=== PATIENT | female | born 1955 | race Caucasian/White ===

== ENCOUNTER 2018-10-07 05:38 | Outpatient (CLI) | payer MEDICARE, OTHER, MEDICAID ==
[~2018-10-07] VITALS: Ht 170.2 cm; Wt 121.6 kg
[2018-10-07] MEDS ORDERED: VNL37.5T PO (14:56)
[2018-10-07] MEDS ORDERED: EXEN2AUT SQ (14:56)
[2018-10-07] MEDS ORDERED: POTA10TA10 PO (14:56)
[2018-10-07] MEDS ORDERED: LEVO75TA6 PO (14:56)
[2018-10-07] MEDS ORDERED: MULT-141 PO (14:56)
[2018-10-07] MEDS ORDERED: CLOP75TA28 PO (14:56)
[2018-10-07] MEDS ORDERED: CYCL10TA9 PO (14:56)
[2018-10-07] MEDS ORDERED: MECL12.579 PO (14:56)
[2018-10-07] MEDS ORDERED: FURO20TA4 PO (14:56)
[2018-10-07] MEDS ORDERED: LISI-556 PO (14:56)
[2018-10-07] MEDS ORDERED: INSU100I32 SQ (14:56)
[2018-10-07] MEDS ORDERED: DULO30CA48 PO (14:56)
[2018-10-07] MEDS ORDERED: QUET25TA73 PO (14:56)
[2018-10-07] MEDS ORDERED: DIVA250T2 PO (14:56)
[2018-10-07] MEDS ORDERED: PREG25CA PO (14:56)
[2018-10-07] MEDS ORDERED: VNL75T PO (14:56)
[2018-10-07] MEDS ORDERED: METF-397 PO (14:56)
[2018-10-07] MEDS ORDERED: MAGN400T50 PO (14:56)
[2018-10-07] MEDS ORDERED: NITR0.4T39 SL (14:56)
[2018-10-07] MEDS ORDERED: INSU100I14 SQ (14:56)
[2018-10-07] MEDS ORDERED: PANT40TA3 PO (14:56)
[2018-10-07] MEDS ORDERED: TRAZ-189 PO (14:56)
[2018-10-10] MEDS ORDERED: ALPR0.5T7 PO (08:39)
[2018-10-10] MEDS ORDERED: TRAZ-190 PO (08:39)
[2018-10-10] MEDS ORDERED: METO-333 PO (08:39)
[2018-10-10] MEDS ORDERED: ATOR80TA76 PO (08:39)
== END 2018-10-07 15:09 | disposition home or self-care (01) ==
LOC: PREOP 05:38
PROVIDERS: ATTEND Orthopaedic Surgery
DX: Z01.818 Encounter for other preprocedural examination (principal)

== ENCOUNTER 2018-10-10 10:04 | Inpatient (IN) | payer MEDICARE, MEDICAID ==
[~2018-10-10] VITALS: Ht 170.2 cm; Wt 123.4 kg
[2018-10-10] VITALS (7 sets, daily range): BP systolic 137–170; BP diastolic 65–82
[~2018-10-10 10:04] MED LIST: ALPR0.5T7 PO; ATOR80TA76 PO; CLOP75TA28 PO; CYCL10TA9 PO; DIVA250T2 PO; DULO30CA48 PO; EXEN2AUT SQ; FURO20TA4 PO; INSU100I14 SQ; INSU100I32 SQ; LEVO75TA6 PO; LISI-556 PO; MAGN400T50 PO; MECL12.579 PO; METF-397 PO; METO-333 PO; MULT-141 PO; NITR0.4T39 SL; PANT40TA3 PO; POTA10TA10 PO; PREG25CA PO; QUET25TA73 PO; TRAZ-189 PO; TRAZ-190 PO; VNL37.5T PO; VNL75T PO
--- OUTSIDE RECORDS SUMMARY | 2018-10-10 10:09 | XMS REPORT ---
Author Author [facility] Medical Staff Organization [facility] Address [address] [id number] Phone [phone] Summary purpose TRANSITION OF CARE AUTO GENERATION Chief Complaint and Reason for Visit No authorized Reason for Visit (Admitting Diagnosis) is available for this visit. Problem list No authorized problems tracked for continuity of care are available for this visit. Encounters No authorized problems tracked for encounter diagnoses are available for this visit. Medications No medications recorded for this patient visit Allergies, adverse reactions, alerts Allergen Category Ingredient Status Reaction Severity Onset No Known Drug Allergy No known drug allergies No known drug allergies Confirmed or Verified Immunizations Status Date Not Given Reason Product Series # Effectiveness / Reaction Folder Seamer Lot / Expiration Given 01-18-2015 PNEUMOCOCCAL 23-SHARON P-SAC VAC 1 MERCK,SHARP,[facility] [id number] / 12-20-2015 Relevant diagnostic tests and/or laboratory data RESULTS Radiology Results [id number]:19:00 Bilateral Screen Digital Mammo PACs Image DATE OF EXAM: 2016 [facility] 0845-BILAT SCREEN DIG MAMMO : RADIOLOGY REPORT DATE OF SERVICE: 03/09/16 HISTORY: Screening exam BILATERAL DIGITAL SCREENING MAMMOGRAM WITH iCAD SecondLook 7.2-H+ 1330 HOURS There are minimal residual fibroglandular densities. There are scattered benign coarse round calcifications in both breasts. There are no masses or grouped microcalculi. There is no distortion or significant asymmetry. IMPRESSION: Negative mammograms BI-RADS II. Dipesh Thorpe MD Lane/ga2016 15:20:00 / 2016 15:37:10 cc:Christiano Piña PA-C This document has been electronically Signed by: On: DATE OF EXAM: 2016 [facility] 0845-BILAT SCREEN DIG MAMMO : RADIOLOGY REPORT DATE OF SERVICE: 03/09/16 HISTORY: Screening exam BILATERAL DIGITAL SCREENING MAMMOGRAM WITH iCAD SecondLook 7.2-H+ 1330 HOURS There are minimal residual fibroglandular densities. There are scattered benign coarse round calcifications in both breasts. There are no masses or grouped microcalculi. There is no distortion or significant asymmetry. IMPRESSION: Negative mammograms BI-RADS II. Dipesh Thorpe MD MWLane/nh2016 15:20:00 / 2016 15:37:10 cc:Christiano Piña PA-C This document has been electronically Signed by: DIPESH THORPE MD On: Mar 09 20164:19P Result Amended on 2016 at 16:19:54. Previous status was [place]. History of procedures Procedure Code Code Type Description Date Performed Performing Physician 23491 CPT-4 MAMMOGRAM, SCREENING 2016 CHRISTIANO PIÑA 32917 CPT-4 COMP SCREEN MAMMOGRAM ADD-ON 2016 CHRISTIANO PIÑA Functional status No functional or cognitive status observations are available for this visit. Vital signs No authorized vital signs are available for this visit. Social history No Social History or smoking status observations were recorded for this visit. ( Unknown if ever smoked.) Treatment Plan No treatment plan text is available for this visit. Hospital discharge instructions No discharge instruction text is available for this visit.
--- OUTSIDE RECORDS SUMMARY | 2018-10-10 10:10 | XMS REPORT ---
Author Author [facility] Medical Staff Organization [facility] Address [address] [id number] Phone [phone] Care Team Providers Care General Intern Name Role Phone CHRISTIANO BOSWELL PP [phone] Summary purpose TRANSITION OF CARE AUTO GENERATION [...] Reason Product Series # Effectiveness / Reaction Account Contact Associate Lot / Expiration Given 01-18-2015 PNEUMOCOCCAL 23-SHARON P-SAC VAC 1 MERCK,SHARP,LYDIA [id number] / 12-20-2015 Relevant diagnostic tests and/or laboratory data No authorized results are available for this patient visit History of procedures No procedures recorded for this patient visit. Functional status No functional or cognitive status [...]
--- OUTSIDE RECORDS SUMMARY | 2018-10-10 10:10 | XMS REPORT ---
Author Author [facility] Medical Staff Organization [facility] Address [address] [id number] Phone [phone] Care Team Providers Care Patient Care Provider Name Role Phone CHRISTIANO BOSWELL PP [phone] Summary purpose TRANSITION OF CARE AUTO GENERATION [...] Reason Product Series # Effectiveness / Reaction Department Head Lot / Expiration Given 01-18-2015 PNEUMOCOCCAL 23-SHARON P-SAC VAC 1 MERCK,SHARP,LYDIA [id number] / 12-20-2015 Relevant diagnostic tests and/or laboratory data RESULTS Chemistry [id number]:53:00 Result Normal Range Units Sodium 138 134-145 mEq/l Potassium 4.1 3.5-5.1 mEq/l Chloride 104 98-107 mEq/l CO2 24.4 22-28 mEq/l Glucose H 173 70-105 mg/dl BUN 16 7-18 mg/dl Creatinine 0.83 0.6-1.0 mg/dl Triglycerides 112 35-160 mg/dl Cholesterol 151 120-200 mg/dl HDL Cholesterol L 38 39-96 mg/dl VLDL Cholesterol 22 5-40 mg/dl LDL Cholesterol 100 30-100 mg/dl Calcium 8.8 8.4-10.2 mg/dl TP - Total Protein 6.8 6.0-8.3 g/dl Albumin 4.0 3.5-5 g/dl Bilirubin - Total 0.5 0.1-1.0 mg/dl AST 14 10-42 IU/L ALT 28 12-65 IU/L ALP 68 25-72 IU/L Osmolality 281.0 280-300 mOsm/L Albumin/Globulin Ratio 1.4 0-8 Anion GAP 9.6 8-16 BUN/Creatinine Ratio 19.3 10-20 Estimated GFR 70 >=60 mL/min/1.7 Special Chemistry [id number]:00 Result Normal Range Units Hemoglobin A1C H 10.7 4.5-6.2 % History of procedures No procedures recorded for [...]
--- OUTSIDE RECORDS SUMMARY | 2018-10-10 10:10 | XMS REPORT ---
Author [facility] Medical Staff Organization [facility] Address [address] [id number] Phone [phone] Care Team Providers Care Head Bucker Name Role Phone CHRISTIANO BOSWELL PP [phone] Summary purpose TRANSITION OF CARE AUTO GENERATION [...] Reason Product Series # Effectiveness / Reaction Radiologic Technician Lot / Expiration Given 01-18-2015 PNEUMOCOCCAL 23-SHARON P-SAC VAC 1 MERCK,SHARP,LYDIA [id number] / 12-20-2015 Relevant diagnostic tests and/or laboratory data No authorized results are available for this patient visit History of procedures Procedure Code Code Type Description Date Performed Performing Physician 05651 CPT-4 PT EVALUATION 04-13-2016 NADIRA SCHAFER 54392 CPT-4 ULTRASOUND THERAPY 04-13-2016 NADIRA SCHAFER 63752 CPT-4 ULTRASOUND THERAPY 04-17-2016 NADIRA SCHAFER 12501 CPT-4 ULTRASOUND THERAPY 04-20-2016 NADIRA SCHAFER Functional status No functional or cognitive status [...]
--- OUTSIDE RECORDS SUMMARY | 2018-10-10 10:10 | XMS REPORT ---
Author Author [facility] Medical Staff Organization [facility] Address [address] [id number] Phone [phone] Care Team Providers Care Gift Shop Clerk Name Role Phone CHRISTIANO BOSWELL PP [phone] Summary purpose TRANSITION OF CARE AUTO GENERATION [...] Reason Product Series # Effectiveness / Reaction Pediatric Ophthalmologist Lot / Expiration Given 01-18-2015 PNEUMOCOCCAL 23-SHARON P-SAC VAC 1 MERCK,SHARP,LYDIA [id number] / 12-20-2015 Relevant diagnostic tests and/or laboratory data RESULTS Chemistry [id number]:53:00 Result Normal Range Units Sodium 138 134-145 [...] Estimated GFR 70 >=60 mL/min/1.7 Special Chemistry [id number]:53:00 Result Normal Range Units Hemoglobin A1C H 10.7 4.5-6.2 % History of procedures Procedure Code Code Type Description Date Performed Performing Physician 74866 CPT-4 COMPREHEN METABOLIC PANEL 04-21-2016 CHRISTIANO CROUCH 40950 CPT-4 LIPID PANEL 04-21-2016 CHRISTIANO CROUCH 07089 CPT-4 GLYCOSYLATED HEMOGLOBIN TEST 04-21-2016 CHRISTIANODUSTIN CROUCH Functional status No functional or cognitive status [...]
--- OUTSIDE RECORDS SUMMARY | 2018-10-10 10:10 | XMS REPORT ---
Author [facility] [employer] [facility] Medical Staff Organization [facility] Address [address] [place] [id number] Phone [phone] Care Team Providers Care Pier Master Assistant Name Role Phone MELISSA MEDEROS, SANDRA FONG [phone] SANDRA TORRES MD, PP [phone] Summary purpose TRANSITION OF CARE AUTO GENERATION Chief Complaint and Reason for Visit Admit Diagnosis 1 CHEST PAIN RULE OUT ME Problem list No authorized problems tracked for continuity of care are available for this visit. Encounters The following conditions tracked for encounter diagnoses were recorded for this visit: Finding or Diagnosis Status Certainty Chronicity Onset *CHEST PAIN Active Medications No medications recorded for this patient visit Allergies, adverse reactions, alerts Allergen Category Ingredient Status Reaction Severity Onset No Known Drug Allergy No known drug allergies No known drug allergies Confirmed or Verified Immunizations Status Date Not Given Reason Product Series # Effectiveness / Reaction Inspector Grain [employer] Products Lot / Expiration Given 01-18-2015 PNEUMOCOCCAL 23-SHARON P-SAC VAC 1 MERCK,SHARP,LYDIA [id number] / 12-20-2015 Relevant diagnostic tests and/or laboratory data RESULTS Chemistry [id number]:20:00 Result Normal Range Units Sodium 134 134-145 mEq/l Potassium 4.5 3.5-5.1 mEq/l Chloride 98 98-107 mEq/l CO2 24.8 22-28 mEq/l Glucose H 334 70-105 mg/dl BUN H 20 7-18 mg/dl Creatinine 0.98 0.6-1.0 mg/dl Calcium 9.1 8.4-10.2 mg/dl TP - Total Protein 7.2 6.0-8.3 g/dl Albumin 3.6 3.5-5 g/dl Bilirubin - Total 0.5 0.1-1.0 mg/dl AST 12 10-42 IU/L ALT 37 12-65 IU/L ALP H 75 25-72 IU/L Osmolality 283.9 280-300 mOsm/L Albumin/Globulin Ratio 1.0 0-8 Anion GAP 11.2 8-16 BUN/Creatinine Ratio H 20.4 10-20 BNP- Brain Natriuretic Peptide 75 0-900 pg/ml Estimated GFR L 58 >=60 mL/min/1.7 Hematology :20:00 Result Normal Range Units WBC 9.8 4.8-10.8 103/uL RBC 5.2 4.2-5.4 106/uL HGB 14.5 12.0-16.0 g/dl HCT 40.1 36.9-47.0 % MCV L 77.3 81-99 FL MCH 27.9 27-31 pg MCHC 36.2 33-37 g/dl RDW 13.6 11.5-15.5 % PLT 167 130-400 103/uL MPV H 11.3 7.3-10.4 FL Cardiac [id number]:27:00 Result Normal Range Units Troponin I < 0.04 0.0-0.4 ng/ml Patient samples may contain heterophilic antibodies that could react in immunoassays to give falsely elevated or depressed results. This Dimension assay has been designed to minimize interference from heterophilic antibodies. Nevertheless, complete elimination of this interference from all patient specimens cannot be guaranteed. A test result that is inconsistent with the clinical picture and patient history should be interpreted with caution. :20:00 Result Normal Range Units CK 59 26-192 IU/L CKMB 0.7 0-3.6 ng/ml Patient samples may contain heterophilic antibodies that could react with immunoassays to give falsely elevated or depressed results. This Dimension assay has been designed to minimize interference from heterophilic antibodies. Nevertheless, complete elimination of this interference from all patient specimens cannot be guaranteed. A test result that is inconsistent with the clinical picture and patient history should be interpreted with caution. Troponin I < 0.04 0.0-0.4 ng/ml Patient samples may contain heterophilic antibodies that could react in immunoassays to give falsely elevated or depressed results. This Dimension assay has been designed to minimize interference from heterophilic antibodies. Nevertheless, complete elimination of this interference from all patient specimens cannot be guaranteed. A test result that is inconsistent with the clinical picture and patient history should be interpreted with caution. Radiology Results [id number]:00 Chest XRay - Port - 1 View PACs Image DATE OF EXAM: Feb 20 2015 RAD 0292-CHEST 1 VIEW PORT : RADIOLOGY REPORT DATE OF SERVICE: 02/20/15 HISTORY: Patient has chest pain, nausea. PORTABLE ONE VIEW CHEST 0648 HOURS The patient has undergone coronary artery bypass surgery. The heart and mediastinum are normal. The lungs are clear. No effusion is seen. IMPRESSION: Negative study of the chest unchanged from 02/06/2015. Vanessa Ignacio DO /mi 02/20/2015 11:29:00 / 02/20/2015 11:31:45 cc:Dr. Sandra Torres This document has been electronically Signed by: On: DATE OF EXAM: Feb 20 2015 RAD 0292-CHEST 1 VIEW PORT : RADIOLOGY REPORT DATE OF SERVICE: 02/20/15 HISTORY: Patient has chest pain, nausea. PORTABLE ONE VIEW CHEST 0648 HOURS The patient has undergone coronary artery bypass surgery. The heart and mediastinum are normal. The lungs are clear. No effusion is seen. IMPRESSION: Negative study of the chest unchanged from 02/06/2015. Vanessa Ignacio DO /mi 02/20/2015 11:29:00 / 02/20/2015 11:31:45 cc:Dr. Sandra Torres This document has been electronically Signed by: VANESSA IGNACIO DO On: Feb 20 20151:46P Result Amended on 2015-02-20 at 13:46:52. Previous status was [place]. CHEST PAIN RULE OUT ME [id number]:20:00 Result Normal Range Units MPV H 11.3 7.3-10.4 FL History of procedures No procedures recorded for this patient visit. Functional status Functional Status Finding Observation Time Hearing Prob Loc none [id number]:00 Vision Problems yes [id number]:00 Vision Correct Dev glasses [id number]:00 Ambulation Asst Dev none [id number]:00 Range of Motion full :18 Muscle Strength RUE 5 ROM full resist :18 Muscle Strength RLE 5 ROM full resist :18 Muscle Strength LUE 5 ROM full resist :18 Muscle Strength LLE 5 ROM full resist [id number]:18 Transfers independent :18 Ambulation in room :18 Balance steady :18 Bathing Assistance none :00 Eating Assistance none :00 Dressing Assistance none :00 Toileting Assistance none :00 Transfer Assistance none :00 Decline Slf Care/Mob no :00 Phys Cond Stable yes :00 Nutrition normal :18 Diet ADA specify calorie Comment: 1800 :18 Oral Cavity moist :18 Teeth missing (specify) Comment: several :18 Dental Hygiene good :18 Abdomen Appearance obese :18 Abdomen soft :18 Bowel Sounds present :18 NG Tube no :18 Feeding Tube none :18 Pinto no :18 Ostomy no :18 Stool normal Comment: per pt report :18 Urination normal Comment: per pt report :18 Quality sym/unlabored :18 Cough absent :18 Secretions no :18 Breath Sounds RUL clear :18 Breath Sounds RML clear :18 Breath Sounds RLL clear :18 Breath Sounds LARISA clear :18 Breath Sounds LLL clear :18 Airway natural :18 Chest Tube no :18 Oxygen no [id number]:14 C-PAP no :18 BI-PAP no :18 Temp >100.4 no :18 Temp <96.8 no :18 Chills with rigors no :18 HR > 90bpm no :18 Respirations > 20 no :18 Systolic <90 no [id number]:18 headache stiff neck no :18 WBC > 51378 no :18 WBC < 4000 no :18 Rapid Resp no :18 IV Site Location Left inner FA :35 IV Type peripheral :35 IV Site Information new : IV Site Start Attmpt 2 times :35 IV Site Michael 20 :35 IV Site Appearance WNL :35 IV Site Color clear :35 IV Site Patent yes :35 Dressing Changed yes :35 Dressing Type occlusive :35 Nursing Note Report called to Janice at [facility] at 2009. 201420:14 Cognitive Status Finding Observation Time Oriented To Date 5 Yes : Oriented To Place 5 Yes :00 Name 3 Objects 3 Yes :00 Name Object in Rm 2 Yes :00 Recall 3 Objects 3 Yes :00 Repeats a Phrase 1 Yes :00 Follows Verbal Direc 3 Yes :00 Follows Written Dire 1 Yes :00 Write a Sentance 1 Yes :00 Draw an Object 1 Yes :00 Mini Mental Total 25 points :00 Less than 20 Phys not applicable :00 Learning Ability comprehends well : Neurological no :03 Psychological no :03 Physical no :03 Hearing no :03 Senior Financial Needed no :03 Sign Language no :03 Emotional yes :03 Vision yes :03 Laguage no :03 Financial no :03 Vital signs Type Value Date Respiration Rate 18breaths per minute 06-72-275013:14 Pulse 91beats per minute :14 Oxygen Saturation 93% :14 BP Systolic 170mmHg :14 BP Diastolic 69mmHg :14 Temperature 98.3F 86-87-131019:14 Height 67inches 94-94-817454:00 Weight 256LB 48-10-214462:00 Social history Type Value Smoking Status FORMER SMOKER Treatment Plan No treatment plan text is available for this visit. Hospital discharge instructions Discharge Date/Time 02/20/2015 09:50 Accompanied By nurse Dismissal Condition fair Disposition on DC transfered Comment: OBS 8 via w/c Valuables yes Valuable Type billfold/jamila Valuableharriet Returned T patient DC Inst/Educ Give yes Med/Side Effects Rev yes PNE Vac 01/18/2015 Flu Vac 10/06/2014 Tetanus Vac unknown
--- OUTSIDE RECORDS SUMMARY | 2018-10-10 10:10 | XMS REPORT ---
Author Author [facility] Medical Staff Organization [facility] Address [address] [id number] Phone [phone] Care Team Providers Care Billiard Table Assembler Name Role Phone MELISSA MEDEROS, SANDRA PP [phone] SANDRA TORRES MD, PP [phone] Summary purpose TRANSITION OF CARE AUTO GENERATION Chief Complaint and Reason for Visit Admit Diagnosis 1 CHEST PAIN RULE OUT CO Problem list No authorized problems tracked for [...] Reason Product Series # Effectiveness / Reaction Manager Pipeline Lot / Expiration Given 01-18-2015 PNEUMOCOCCAL 23-SHARON P-SAC VAC 1 MERCK,SHARP,LYDIA [id number] / 12-20-2015 Relevant diagnostic tests and/or laboratory data RESULTS [id number]:46:00 Discharge Summary DISCHARGE SUMMARY The patient does continue to have chest pain. Nitroglycerin was given. I spoke with Dr. White from [facility] and he has agreed to accept the patient in transfer to [place].She will be transferred via ambulance. Will start her on a nitroglycerin patch and give her a dose of metoprolol and start her on Lovenox as well this evening. Em Piña PA-C for Sandra Torres MD SB/jmeka 02/20/2015 18:46:00/02/21/2015 08:49:18 Clinic Code:24798 [facility]: [facility] [address] [place] [address] <END HEADER> Chemistry [id number]:20:00 Result Normal Range Units Sodium 134 134-145 [...] 103/uL MPV H 11.3 7.3-10.4 FL Cardiac [id number]:27:00 Result Normal Range Units Troponin I < [...] should be interpreted with caution. Radiology Results [id number]:47:00 MYOCARDIAL SPECT MULT PACs Image DATE OF EXAM: Feb 20 2015 [id number] SPECT MULTIPLE : RADIOLOGY REPORT DATE OF SERVICE: 02/20/15 HISTORY: Chest pain, coronary artery disease, x4 bypass 2011, insulin dependent diabetes mellitus, hypertension, obese PHARMACOLOGICAL STRESS AND RESTING MYOCARDIAL PERFUSION STUDY (LEXISCAN CARDIOLITE STUDY) 1015 HOURS The patient initially is given 10.1 mCi of technetium 99m labeled Cardiolite intravenously. After a 55 minute delay, resting SPECT perfusion images are obtained. The patient is then given the pharmacological stress agent by the referring clinician. At maximal stress, the patient is given 30.2 mCi of technetium 99m labeled Cardiolite intravenously. After a 62 minute delay, gated stress SPECT perfusion images are obtained. The stress SPECT perfusion images reveal a perfusion defect along the anterior wall of the left ventricle. This is, however, present on the resting images, but is worse on the stress images. There is also a small perfusion defect in the inferior wall of the left ventricle which is essentially the same as on the stress and resting images. On the end-systolic stress SPECT perfusion images, the perfusion defect in the anterior wall is still worse on the stress and on the resting images, so this represents a small area of reversible ischemia, probably an area of previous infarction.The inferior wall perfusion defect is also still present on the gated end systolic images. On the gated study, the left ventricular ejection fraction is calculated at 52% which is normal. The end-systolic volume is 29 cc with the end-diastolic volume being 102 cc.There is normal segmental left ventricular cardiac wall motion and thickening, including the anterior wall. IMPRESSION: 1)There is a small fixed perfusion defect in the inferior wall of the left ventricle either due to a technical artifact due to the patient's body habitus or a small area of previous infarction. 2)There is a perfusion defect along the anterior wall of the left ventricle which is worse on the stress than on the resting images. This, therefore, appears to represent an area of reversible ischemia possibly an area of previous infarction. 3)The left ventricular ejection fraction is calculated at 52% which is normal. There is normal segmental left ventricular cardiac wall motion and thickening present. 4)The report is relayed telephonically to the Emergency Department at approximately 16:45 hours on . MD ALBERTO Mcelroy/jeff02/20/2015 16:41:02/20/2015 18:44:18 cc:Dr. Mary Torres This document has been electronically Signed by: On: CHEST PAIN RULE OUT CO [id number]:46:00 Chest XRay - Port - 1 View [...] study of the chest unchanged from 02/06/2015. DO JAROD Quiroga/lisha 02/20/2015 11:29:02/20/2015 11:31:45 cc:Dr. Sandra Torres This document has [...] study of the chest unchanged from 02/06/2015. DO JAROD Quiroga/lisha 02/20/2015 11:29:00 / 02/20/2015 11:31:45 cc:Dr. Sandra Torres This document has been electronically Signed by: VANESSA IGNACIO DO On: Feb 20 20151:46P Result Amended on 2015-02-20 at 13:46:52. Previous status was [place]. CHEST PAIN RULE OUT CO :20:00 Result Normal Range Units MPV H 11.3 7.3-10.4 FL History of procedures No procedures recorded for this patient visit. Functional status Functional Status Finding Observation Time Hearing Prob Loc none :00 Vision Problems yes : Vision Correct Dev glasses :00 Ambulation Asst Dev none : Range of Motion full : Muscle Strength RUE 5 ROM full resist : Muscle Strength RLE 5 ROM full resist : Muscle Strength LUE 5 ROM full resist :18 Muscle Strength LLE 5 ROM full resist :18 Transfers independent : Ambulation in room : Balance steady : Bathing Assistance none :00 Eating Assistance none [...] :18 Chest Tube no :18 Oxygen no [id number]:14 C-PAP no [id number]:18 BI-PAP no :18 Temp >100.4 no :18 Temp <96.8 no :18 Chills with rigors no : HR > 90bpm no :18 Respirations > 20 no :18 Systolic <90 no :18 headache stiff neck no :18 WBC > 42662 no :18 WBC < 4000 no :18 Rapid Resp no :18 IV Site Location Left inner FA :35 IV Type peripheral :35 IV Site Information new :35 IV Site Start Attmpt 2 times :35 IV Site Michael 20 :35 IV Site Appearance WNL :35 IV Site Color clear :35 IV Site Patent yes :35 Dressing Changed yes :35 Dressing Type occlusive :35 Nursing Note Patient was admitted from [facility] observation for Chest pain/R/O CO. Patient continued to have chest pain so she was sent to [place] where she underwent a heart cath and had two stents placed. She is coming home today. She thanked me for insisting that day she go to the ER. :01 Cognitive Status Finding Observation Time Oriented To Date 5 Yes :[address] 5 Yes :00 Name 3 Objects 3 Yes :00 Name Object in Rm 2 Yes :00 Recall 3 Objects 3 Yes : Repeats a Phrase 1 Yes :00 Follows Verbal Direc 3 Yes : Follows Written Dire 1 Yes : Write a Sentance 1 Yes : Draw an Object 1 Yes : Mini Mental Total 25 points : Less than 20 Phys not applicable :00 Learning Ability comprehends well : Neurological no :03 Psychological no :03 Physical no :03 Hearing no :03 Vehicle Check In Clerk Needed no :03 Sign Language no :03 Emotional yes :03 Vision yes :03 Laguage no :03 Financial no :03 Vital signs Type Value Date Respiration Rate 18breaths per minute 09-44-205684:14 Pulse 91beats per minute :14 Oxygen Saturation 93% :14 BP Systolic 170mmHg 16-25-970244:14 BP Diastolic 69mmHg :14 Temperature 98.3F 83-79-813816:14 Height 67inches 99-94-063039:00 Weight 256LB 71-54-996734:00 Social history Type Value Smoking Status FORMER SMOKER Treatment Plan No treatment plan text is available for this visit. Hospital discharge instructions Discharge Date/Time 02/20/2015 09:50 Accompanied By nurse Dismissal Condition fair Disposition on DC transfered Comment: OBS 8 via w/c Valuables yes Valuable Type billfold/purse Valuables Returned T patient DC Inst/Educ Give yes Med/Side Effects Rev yes PNE Vac 01/18/2015 Flu Vac 10/06/2014 Tetanus Vac unknown
--- OUTSIDE RECORDS SUMMARY | 2018-10-10 10:11 | XMS REPORT ---
Author Author [facility] Medical Staff Organization [facility] Address [address] [phone] Phone [phone] Care Team Providers Care Custom Shoemaker Name Role Phone MELISSA MEDEROS, SANDRA FONG [phone] Summary purpose TRANSITION OF CARE AUTO GENERATION [...] Reason Product Series # Effectiveness / Reaction Psychology Associate Lot / Expiration Given 01-18-2015 PNEUMOCOCCAL 23-SHARON P-SAC VAC 1 MERCK,SHARP,LYDIA [id number] / 12-20-2015 Relevant diagnostic tests and/or laboratory [...]
--- OUTSIDE RECORDS SUMMARY | 2018-10-10 10:11 | XMS REPORT ---
Author Author [facility] Medical Staff Organization [facility] Address [address] [id number] Phone [phone] Care Team Providers Care Contracting Manager Name Role Phone MELISSA MEDEROS, SANDRA FONG [phone] SANDRA BRUNNER MD, PP [phone] Summary purpose TRANSITION OF CARE AUTO GENERATION Chief Complaint and Reason for Visit Admit Diagnosis 1 PN Problem list No authorized problems tracked for continuity of care are available for this visit. Encounters The following conditions tracked for encounter diagnoses were recorded for this visit: Finding or Diagnosis Status Certainty Chronicity Onset *PNEUMONIA Active Medications Discharge Medications Status Medication Directions Current Acetaminophen (TYLENOL) 325 mg: TABLET 650 MG oral Give PO Q4 Hours As Needed for PAIN/FEVER Current Albuterol Sulfate (ALBUTEROL) 2.5 mg /3 mL (0.083 %): VIAL-NEB. 2.5 MG inhalation Give NEB Q4 Hours As Needed for DIFFICULTY BREATHING Current alprazolam 0.25 mg tablet 0.25 milligram (s) oral oral 3 xDaily As Needed for anxiety Current Benzonatate (TESSALON PERLES) 100 mg: CAPSULE 1-2 CAP oral Give PO Q6 Hours As Needed for COUGH Current Celexa 40 mg tablet 20 milligram (s) oral Daily Current Cymbalta 30 mg capsule,delayed release 60 milligram (s) oral Daily Current Levemir Flexpen 100 unit/mL (3 mL) solution subcutaneous insulin pen 35 unit(s) subcutaneous Bedtime daily Current Lipitor 40 mg tablet 40 milligram (s) oral Bedtime daily Current lisinopril 5 mg tablet 5 milligram (s) oral Daily Current Lyrica 50 mg capsule 100 milligram (s) oral 3 xDaily 07-08-21 Current Nitrostat 0.4 mg sublingual tablet 0.4 milligram (s) Sublingual SL As Needed for chest pain Current Novolog Flexpen 100 unit/mL subcutaneous 35 unit(s) subcutaneous 3 xDaily with Meals [id number] Current oxycodone 10 mg tablet 1-2 oral oral Q6 Hours As Needed for pain Home prescription Current Plavix 75 mg tablet 75 milligram (s) oral Daily Current Protonix 40 mg tablet,delayed release 40 milligram (s) oral Daily Current trazodone 100 mg tablet 200 milligram (s) oral Bedtime daily Allergies, adverse reactions, alerts Allergen Category Ingredient Status Reaction Severity Onset No Known Drug Allergy No known drug allergies No known drug allergies Confirmed or Verified Immunizations Status Date Not Given Reason Product Series # Effectiveness / Reaction 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 Chest x-ray performed in the clinic was felt to show a right lower lobe infiltrate. She had been having some diarrhea at home. She had been having fever and chills since the onset and temperature up to 101.9 was found at home. She denied nausea and vomiting. She was admitted for further evaluation. PHYSICAL EXAMINATION:VITAL SIGNS: Temperature 97.4 tympanic. Pulse 68. Blood pressure 134/63. Respirations 18. Oxygen saturation 94% on room air. HEENT: Clear. LUNGS: Clear. No cough noted today.HEART: Normal sinus rhythm. ABDOMEN: Soft and nontender. EXTREMITIES: Without edema. LABORATORY/X-RAY/EKG DATA: Complete blood count on 10/28/2015 showed a white blood cell count of 6700, hemoglobin 13.5, hematocrit 40.8, platelets 168. Chemistry on 10/29/2015 showed sodium of 136, potassium 4.6, chloride 102, CO2 28.8, glucose 215, blood urea nitrogen 22, and creatinine 0.90. Anion gap 5.2. Glomerular filtration rate of 64. HOSPITAL COURSE:Following admission, the patient was placed in the hospital on pneumonia protocol. Levaquin was administered intravenously daily over 7 days. Chest x-ray was completed on 10/28/2015, which was read as clear by the radiologist. The patient was seen on October [address] Cole for a parenchyma of the left great toe with callous, which was incised and drained and callous removed by Dr. Cole with instructions on dressing. The patient was noted to have renal insufficiency on October 28 with a blood urea nitrogen of 25 and creatinine of 1.02 and glomerular filtration rate of 56; improved on October 29 with a blood urea nitrogen of 22 and creatinine of 0.90 and glomerular filtration rate of 64. FOLLOW UP:The patient will follow up with Dr. Brunner in the clinic in 7 days. HOME MEDICATIONS:Will include acetaminophen 325 mg tablets, number of 2 given orally every4 hours as needed, albuterol 2.5 mg in 3 mL solution per vial inhalation given nebulized every 4 hours as needed, alprazolam 0.25 mg tablet oral 3 times daily as needed, Tessalon Perles 100 mg capsules oral 1 to 2 caps every 6 hours as needed, Celexa 40 mg tablets 1/2 tablet daily, Cymbalta 30 mg capsules oral 2 capsules daily, Levemir 35 units subcutaneous at bedtime, Lipitor 40 mg oral tablet at bedtime, lisinopril 5 mg oral tablet daily, Lyrica 50 mg capsule 2 capsules 3 times daily, Nitrostat 0.4 mg sublingual tablets as needed for chest pain, NovoLog 35 units 3 times daily with meals subcutaneous, oxycodone 10 mg tablets 1 to 2 every 6 hours as needed, Plavix 75 mg tablet oral daily, Protonix 40 mg tablet oral daily, trazodone 100 mg tablet oral 2 tablets at bedtime. ASSESSMENT: 1. Acute bronchitis. 2. Parenchyma of the left great toe. 3. Type 2 diabetes. 4. Renal insufficiency. Sanjeev David APRN for MD DEVORAH Aldana/cdj10/30/2015 13:55:00/10/30/2015 14:25:01 Clinic Code: [facility] [address] [address] <END HEADER> [id number]:30:00 Progress Note PROGRESS NOTE 10/29/2015 17:30:34 S:The patient is getting along well today. Her bowels moved last night after magnesium citrate. Some loose stool with large amount of formed stool. She had parenchyma of the left great toe drained over the weekend. She is having minor discomfort from that. No nausea or vomiting. Still has some cough but that seems to be improving. The patient is worried that her oxygen saturation dropped during the night yesterday. O: VITAL SIGNS: Temperature 98.2 tympanic, pulse 80, blood pressure 125/51, respirations 18, and oxygen saturation 92% on room air. GENERAL: The patient is sitting up in the chair. She is very pleasant. LUNGS: Clear, wheezy cough is noted. HEART: Normal sinus rhythm. ABDOMEN: Soft. No tenderness. EXTREMITIES: Without edema. LABORATORY/X-RAY/ELECTROCARDIOGRAM DATA: Chemistries show sodium of 136, potassium 4.6, CO2 28.8, glucose 215, blood urea nitrogen 22, creatinine 0.90, anion gap 5.2, glomerular filtration rate 64. A: 1.Acute bronchitis. 2.Parenchyma of left great toe. 3.Type 2 diabetes. 4.Renal insufficiency. P: 1. Warm Thurston soaks to the left foot 2 times daily followed by Polysporin dressing to the great toe. 2.Plan to dismiss in the morning. 3.Continue respiratory therapy treatments. MELINDA Bruce/michael10/29/2015 17:30:34/10/29/2015 18:16:43 [facility]: [facility] [address] [place] [address]<END HEADER> [id number]:52:00 Progress Note PROGRESS NOTE 10/28/2015 13:52:56 S: Patient is getting along really fairly well. Bowels have not moved for a little over a week. She has been on MiraLax without any improvement. She has had paronychia left great toe drained over the weekend. She is not having much discomfort from that. No nausea or vomiting. Still has some cough, but that seems to be improving. O: VITAL SIGNS: She is afebrile. Temperature 97.7, pulse 86, blood pressure 154/56, respirations 20, and oxygen saturation is 93% on room air. LUNGS: Clear, occasional wheezy cough is noted. HEART: Normal sinus rhythm. ABDOMEN: Soft, diffuse nonlocalized tenderness. EXTREMITIES: Without edema. Intake and output show she was pretty much equal for intake and output yesterday. LABORATORY: This morning showing a white count of 6700, hemoglobin of 13.5. Electrolytes are normal, BUN is up slightly at 25 and creatinine is up to 1.02, estimated GFR of 56. Chest x-ray today showing no pneumonia. A: 1. Acute bronchitis. 2. Paronychia of the left great toe. 3. Type II diabetes. 4. Renal insufficiency. 5. Constipation. P: 1. We have completed a week of Levaquin. In light of her renal insufficiency, I am going to discontinue Levaquin. 2. Magnesium citrate today. 3. Warm Thurston soaks to the left foot 2 times daily followed by Polysporin dressing to the great toe. 4. If she continues to do well, will look at discharge tomorrow. 5. BMP in the morning. Sandra Brunner MD GUEST RELATION OFFICER/lisha 10/28/2015 13:52:56/10/28/2015 13:56:46 Clinic Code: [facility] [address] [place] [address]<END HEADER> [id number]:50:00 Progress Note PROGRESS NOTE 10/27/2015 11:50:33 S: The patient is getting along okay today but complain that she had a lot of tightness in her lungs after her morning breathing treatment, which is unusual. She feels better now. She complains of also feeling tired and weak and still having a loose cough but it has not been productive over the last 24 hours or so. She feels more congested today both the lungs and sinuses than she has. She has not had a bowel movement, but states she feels as though things are moving around and that she may have one today. Yesterday, Dr. Cole was able to see her and he was able to perform a partial avulsion of the medial hallux and the nail border on the left with incision and drainage of parenchyma and removal of necrotic tissue callus and debris. Triple antibiotic and gauze was applied yesterday.I have not yet looked at the wound today. I am planning to go back in with the nurse here soon and we will do a dressing change. She has an appointment to follow up with Dr. Cole this week. O: VITAL SIGNS: Temperature is 98.3, pulse of 82, blood pressure 108/48, respirations 20, and oxygen saturation is 94% on 0.5 liters. HEART: Regular rate and rhythm. LUNGS: Clear. She does have a loose cough. ABDOMEN: Nontender. EXTREMITIES: She has a dressing then on the left great toe. A: 1. Acute bronchitis persisting, currently on Levaquin. 2.Left great toe parenchyma infection and ingrown nail border. 3.Type 2 diabetes. P: 1. Per Dr. Brunner, today will be day 7 of intravenous Levaquin. We will continue that. 2.We will repeat chest x-ray tomorrow to see if there is any interval development of pneumonia. 3.Continue with albuterol 3 times daily and add albuterol in between if needed. 4.Encourage ambulation. 5.We will redress the wound today of the left great toe as well. ART Arrieta/michael10/27/2015 11:50:33/10/27/2015 15:19:14 Clinic Code: [id number] [facility]: [facility] [address] [place] [address]<END HEADER> [id number]:41:00 Progress Note PROGRESS NOTE 10/26/2015 09:41:25 S: The patient is getting along okay today. She does complain though that she has still not had a bowel movement. She was given Dulcolax tablets, yesterday but has not produced a bowel movement. She has already taken MiraLAX today. She states she still has a very little appetite, but has not had a bowel movement in about a week. She also complained that she is noticing some pain in her big toe yesterday. She states she is still short of breath when she is up and walking around and she also has quite a bit of sputum production. She feels it is easier to express her sputum production since she has started Mucinex. The patient has been having some headaches, but complains more of a neck discomfort that leads to the headaches. O: VITAL SIGNS:Her temperature is 98.1, pulse 85, blood pressure 91/83, respirations 20, and oxygen saturation is 94% on room air. GENERAL:The patient is a pleasant, adult female in no otherwise acute distress. HEART:Regular rate and rhythm. LUNGS:Clear. Deep breath does invoke a cough. ABDOMEN:Mildly distended, but bowel sounds are present. The abdomen is otherwise nontender. EXTREMITIES:Examination of her lower extremities, she does have an ulceration and callus formation in the distal aspect of the left great toe medially, just at the tip of where the nail is. It appears she may have cut the nail short at some point causing abrasion to the foot there. This is a bit tender and there is mild erythema surrounding this callus. LABORATORY DATA:There is no new lab to report today. Diabetic flow sheet was reviewed A: 1.Acute bronchitis. 2.Left great toe ulceration. 3.Type 2 diabetes with peripheral neuropathy. 4.Hypoxemia, improving. 5.Constipation. 6.Diminished appetite. 7.Headaches. P: K-pad as needed to her neck to see if this will help some with her headache. I am going to continue with IV Levaquin, continue with nebulized treatments and physical therapy.I am going to consult Dr. Cole due to the patient's foot ulcer. I am going to administer Dulcolax oral again this morning. If no bowel movement, we will administer Dulcolax suppository today. I am also going to leave an order for him milk of magnesia as needed as well. ART Arrieta/mason 10/26/2015 09:41:25/10/26/2015 10:29:27 Clinic Code: [id number] cc: [facility] [address] [place] [address]<END HEADER> [id number]:37:00 Progress Note PROGRESS NOTE 10/25/2015 09:37:55 S: Patient states she is feeling poorly today. She is tired and worn out. She did ambulate with physical therapy yesterday, but states she was short of breath when she was not very fat out of her room and she had to sit down and rest. She is also complaining that she has not had a bowel movement in about a week. She had to wear oxygen yesterday afternoon due to low oxygen saturations and then again this morning. Her saturations were found to be in the upper 80s she was placed on 2 liters. She is still coughing but complains that her sputum remains very thick and green. The patient continues to complain of poor appetite. Her intake and output are reviewed and she did diurese yesterday 1000 in excess of intake. O: VITAL SIGNS:Her temperature is 98.8, pulse 86, blood pressure 135/62, respirations 18 and oxygen saturation 93% on 1 liter of oxygen. GENERAL:The patient is a pleasant, adult female who did not appear to be in any acute distress at this time. HEART:Regular rate and rhythm. LUNGS:Diminished. There is a faint expiratory wheeze heard in the extreme left base. ABDOMEN:Nontender. Bowel sounds are present. EXTREMITIES:Without any edema. A: 1.Acute bronchitis. 2.Hypoxemia. 3.Type 2 diabetes. 4.Diminished appetite. 5.Constipation. P: I am going to administer Dulcolax tablets; she states this is something she takes at home for constipation. She will take 2 orally now. I am also starting MiraLAX daily today. I am adding Mucinex to help thin her secretions, and PORFIRIO chavez for VTE prophylaxis.We will continue with physical therapy and IV Levaquin. ART Arrieta/mason 10/25/2015 09:37:55/10/25/2015 13:30:25 Clinic Code: [id number] cc: [facility] [address] [place] [address]<END HEADER> [id number]:07:00 Progress Note PROGRESS NOTE 10/24/2015 15:07:55 S: Jacek still having cough productive of green sputum. Was able to walk short distance in the [place] today, however, she did have to stop and rest. Appetite is not very good today. She has not eaten anything at all she relates. No diarrhea. No nausea. O: VITAL SIGNS: She has been afebrile. Temperature this morning was 97.8, pulse 88, blood pressure 137/50, respirations 20, and oxygen saturation is 89% on room air. LUNGS: Clear without rales, rhonchi, or wheezes. Occasional tight cough is noted. HEART: Normal sinus rhythm. ABDOMEN: Soft and nontender. Intake and output show she was negative for about 500 cc yesterday. LABORATORY: No new lab for review today. A: 1. Acute bronchitis. 2. Anorexia. P: 1. CBC and BMP in the morning. 2. Continue with physical therapy. 3. Continue with IV Levaquin. MD JHOAN Aldana/lisha 10/24/2015 15:07:55/10/24/2015 15:10:56 Clinic Code: cc: <[facility] [address] [address]<END HEADER> [id number]:19:00 Progress Note PROGRESS NOTE 10/23/2015 09:19:19 S: Patient is getting along better. Cough seems to be better. She walked around in her room some yesterday and tolerated that fairly well. She finds she is still getting short of breath. O: VITAL SIGNS: She has been afebrile. Temperature 98.0, pulse 78, blood pressure 137/58, respirations 20, O2 sats 92% on room air. LUNGS: Clear. HEART: Normal sinus rhythm. ABDOMEN: Soft and nontender. Intake and output show she was negative for 500 cc yesterday. LABORATORY: No new lab for review this morning. Follow up chest x-ray this morning appears clear. A: 1. Acute bronchitis, possible underlying pneumonia. 2. Type II diabetes. P: Continue current regimen. Consult physical therapy. MD JHOAN Aldana/lisha 10/23/2015 09:19:19/10/23/2015 09:35:20 Clinic Code: cc: <[facility] [address] [address]<END HEADER> [id number]:07:00 Progress Note PROGRESS NOTE 10/22/2015 14:07:32 S: Patient is doing okay. Continues to have quite a bit of coughing still. She feels like it is maybe becoming a little looser. She would like some cough syrup to help with cough control. Having no shortness of breath. O: VITAL SIGNS: She has been afebrile since admission. Temperature is 99.1, pulse 80, blood pressure 125/41, respirations 20, and oxygen saturation is 93% on room air. LUNGS: Clear today. Persistent cough is noted with deep inspiration. HEART: Normal sinus rhythm. Intake and output show she was pretty much equal for intake and output overnight. LABORATORY: CBC on admission showed a white count of 7500, hemoglobin 13.5. Differential on the white count showed 67 segs, 1 band, 18 lymphs, 8 monos, white count and hemoglobin are stable today. Chemistries on admission were essentially normal except her glucose was high at 426, BUN 16, creatinine 1.33, estimated GFR of 41. Hemoglobin A1c 11.0. This morning electrolytes are normal. Blood sugars improved at 209. BUN and creatinine have improved to 13 and 0.94 respectively. Estimated GFR of 61. Urinalysis was clear on admission, 3+ glucose, 5 to 10 red blood cells. Rapid Mycoplasma was negative. Chest x-ray over read by the radiologist from admission did not feel like there was any infiltrates present. A: 1. Clinical pneumonia. 2. Type II diabetes. P: 1. Going to repeat chest x-ray in the morning. 2. Phenergan with Codeine for cough. Continue with current IV antibiotic regimen which is Levaquin 500 mg daily. Sandra Brunner MD /ok 10/22/2015 14:07:32/10/22/2015 14:18:55 Clinic Code: [facility]: [facility] [address] [place] [address]<END HEADER> Routine Urinalysis [id number]:17:00 Result Normal Range Units Color YELLOW Clarity Clear Specific [place] 1.020 1.003-1.035 pH 6.0 4.5-8.0 Glucose 3+ Bilirubin NEGATIVE Ketones NEGATIVE Protein NEGATIVE Urobilinogen 0.2 0-0.2 E.U./dL Nitrites NEGATIVE Blood NEGATIVE Leukocytes NEGATIVE WBCs 0-5 RBCs 5-10 Squamous Epithelial Few Bacteria Rare Amount Blood Cultures [id number]:08:00 Blood Culture Plate Date and Time 10/21/2015 18:17 SourceBLOOD CULTURE REPORT NoGrowth at 1 day. Unless otherwise notified. Final report in 5 Days. Release Date/Time: 10/23/2015 08:34 LEFT HAND CULTURE REPORT No growth in 5 days. Release Date/Time: 10/27/2015 07:18 LEFT HAND [id number]:03:00 Blood Culture Plate Date and Time 10/21/2015 18:15 SourceBLOOD CULTURE REPORT NoGrowth at 1 day. Unless otherwise notified. Final report in 5 Days. Release Date/Time: 10/23/2015 08:33 RIGHT A/C CULTURE REPORT No growth in 5 days. Release Date/Time: 10/27/2015 07:18 RIGHT A/C Routine Cultures [id number]:17:00 Urine Culture Plate Date and Time 10/22/2015 01:17 SourceURINE CULTURE REPORT >100,000 colonies/ml Mixed Gram Pos Courtney Release Date/Time: 10/23/2015 07:32 CULTURE REPORT >100,000 colonies/ml Mixed Gram Pos Courtney No Further Work Up Release Date/Time: 10/24/2015 07:17 Chemistry [id number]:25:00 Result Normal Range Units Sodium 136 134-145 mEq/l Potassium 4.6 3.5-5.1 mEq/l Chloride 102 98-107 mEq/l CO2 H 28.8 22-28 mEq/l Glucose H 215 70-105 mg/dl BUN H 22 7-18 mg/dl Creatinine 0.90 0.6-1.0 mg/dl Calcium 8.8 8.4-10.2 mg/dl Osmolality 281.8 280-300 mOsm/L Anion GAP L 5.2 8-16 BUN/Creatinine Ratio H 24.4 10-20 Estimated GFR 64 >=60 mL/min/1.7 [id number]:40:00 Result Normal Range Units Sodium 137 134-145 mEq/l Potassium 4.4 3.5-5.1 mEq/l Chloride 101 98-107 mEq/l CO2 26.3 22-28 mEq/l Glucose H 220 70-105 mg/dl BUN H 25 7-18 mg/dl Creatinine H 1.02 0.6-1.0 mg/dl Calcium 8.7 8.4-10.2 mg/dl TP - Total Protein 6.7 6.0-8.3 g/dl Albumin L 3.0 3.5-5 g/dl Bilirubin - Total 0.5 0.1-1.0 mg/dl AST 23 10-42 IU/L ALT 33 12-65 IU/L ALP H 83 25-72 IU/L Osmolality 285.0 280-300 mOsm/L Albumin/Globulin Ratio 0.8 0-8 Anion GAP 9.7 8-16 BUN/Creatinine Ratio H 24.5 10-20 Estimated GFR L 56 >=60 mL/min/1.7 [id number]:11:00 Result Normal Range Units Sodium 140 134-145 mEq/l Potassium 4.2 3.5-5.1 mEq/l Chloride 103 98-107 mEq/l CO2 27.4 22-28 mEq/l Glucose H 137 70-105 mg/dl BUN H 19 7-18 mg/dl Creatinine 0.80 0.6-1.0 mg/dl Calcium 8.7 8.4-10.2 mg/dl Osmolality 283.8 280-300 mOsm/L Anion GAP 9.6 8-16 BUN/Creatinine Ratio H 23.8 10-20 Estimated GFR 74 >=60 mL/min/1.7 [id number]:10:00 Result Normal Range Units Sodium 138 134-145 mEq/l Potassium 4.4 3.5-5.1 mEq/l Chloride 103 98-107 mEq/l CO2 27.6 22-28 mEq/l Glucose H 221 70-105 mg/dl BUN H 19 7-18 mg/dl Creatinine 0.80 0.6-1.0 mg/dl Calcium 8.8 8.4-10.2 mg/dl Osmolality 284.7 280-300 mOsm/L Anion GAP L 7.4 8-16 BUN/Creatinine Ratio H 23.8 10-20 Estimated GFR 74 >=60 mL/min/1.7 [id number]:40:00 Result Normal Range Units Sodium 141 134-145 mEq/l Potassium 4.0 3.5-5.1 mEq/l Chloride 102 98-107 mEq/l CO2 H 28.7 22-28 mEq/l Glucose H 209 70-105 mg/dl BUN 13 7-18 mg/dl Creatinine 0.94 0.6-1.0 mg/dl Calcium L 8.1 8.4-10.2 mg/dl Osmolality 287.5 280-300 mOsm/L Anion GAP 10.3 8-16 BUN/Creatinine Ratio 13.8 10-20 Estimated GFR 61 >=60 mL/min/1.7 [id number]:03:00 Result Normal Range Units Sodium 136 134-145 mEq/l Potassium 4.0 3.5-5.1 mEq/l Chloride 99 98-107 mEq/l CO2 H 29.4 22-28 mEq/l Glucose H@ 426 70-105 mg/dl BUN 16 7-18 mg/dl Creatinine H 1.33 0.6-1.0 mg/dl Calcium 8.7 8.4-10.2 mg/dl TP - Total Protein 7.0 6.0-8.3 g/dl Albumin 3.5 3.5-5 g/dl Bilirubin - Total 0.3 0.1-1.0 mg/dl AST 12 10-42 IU/L ALT 23 12-65 IU/L ALP H 86 25-72 IU/L Osmolality 291.3 280-300 mOsm/L Albumin/Globulin Ratio 1.0 0-8 Anion GAP L 7.6 8-16 BUN/Creatinine Ratio 12.0 10-20 Estimated GFR L 41 >=60 mL/min/1.7 Hematology [id number]:40:00 Result Normal Range Units WBC 6.7 4.8-10.8 103/uL RBC 4.9 4.2-5.4 106/uL HGB 13.5 12.0-16.0 g/dl HCT 40.8 36.9-47.0 % MCV 82.8 81-99 FL MCH 27.4 27-31 pg MCHC 33.1 33-37 g/dl RDW 13.1 11.5-15.5 % PLT 168 130-400 103/uL MPV H 11.3 7.3-10.4 FL Neutro % 67.6 40-70 % Lymph % L 18.8 20-40 % [place] % 8.7 0-10.0 % Eos % 3.0 0-7.0 % Baso % 1.3 0-2 % Neutro # 4.5 1.5-7.5 103/uL Lymph # 1.3 0.9-4.0 103/uL [place] # 0.6 0-0.8 103/uL Eos # 0.2 0-0.6 103/uL Baso # 0.1 0-0.1 103/uL [id number]:11:00 Result Normal Range Units WBC 6.5 4.8-10.8 103/uL RBC 4.8 4.2-5.4 106/uL HGB 13.3 12.0-16.0 g/dl HCT 39.8 36.9-47.0 % MCV 83.4 81-99 FL MCH 27.9 27-31 pg MCHC 33.4 33-37 g/dl RDW 13.2 11.5-15.5 % PLT 153 130-400 103/uL MPV H 12.1 7.3-10.4 FL Neutro % 69.9 40-70 % Lymph % L 16.7 20-40 % [place] % 8.3 0-10.0 % Eos % 2.8 0-7.0 % Baso % 1.1 0-2 % Neutro # 4.5 1.5-7.5 103/uL Lymph # 1.1 0.9-4.0 103/uL [place] # 0.5 0-0.8 103/uL Eos # 0.2 0-0.6 103/uL Baso # 0.1 0-0.1 103/uL [id number]:10:00 Result Normal Range Units WBC 7.2 4.8-10.8 103/uL RBC 4.6 4.2-5.4 106/uL HGB 12.9 12.0-16.0 g/dl HCT 39.3 36.9-47.0 % MCV 84.7 81-99 FL MCH 27.8 27-31 pg MCHC L 32.8 33-37 g/dl RDW 13.4 11.5-15.5 % PLT 151 130-400 103/uL MPV H 11.4 7.3-10.4 FL [id number]:40:00 Result Normal Range Units WBC 7.1 4.8-10.8 103/uL RBC 4.7 4.2-5.4 106/uL HGB 13.2 12.0-16.0 g/dl HCT 39.0 36.9-47.0 % MCV 82.3 81-99 FL MCH 27.8 27-31 pg MCHC 33.8 33-37 g/dl RDW 13.2 11.5-15.5 % PLT 159 130-400 103/uL MPV H 11.2 7.3-10.4 FL :03:00 Result Normal Range Units WBC 7.5 4.8-10.8 103/uL RBC 4.9 4.2-5.4 106/uL HGB 13.5 12.0-16.0 g/dl HCT 40.1 36.9-47.0 % MCV 82.5 81-99 FL MCH 27.8 27-31 pg MCHC 33.7 33-37 g/dl RDW 12.9 11.5-15.5 % PLT 151 130-400 103/uL MPV H 11.7 7.3-10.4 FL Segs 67.0 40-70 % Bands 1.0 0-5 % Lymphs L 18.0 20-40 % Pl[place] 8.0 0-10 % Eos 3.0 0-7 % Atypical Lymphs 3.0 0-5 % Special Chemistry [id number]:03:00 Result Normal Range Units Hemoglobin A1C H 11.0 4.5-6.2 % Body Fluid 89-68-356538:17:00 Result Normal Range Units pH 6.0 4.5-8.0 Radiology Results [id number]:35:00 Chest X-Ray - 2 View PACs Image DATE OF EXAM: 2015 RAD 0300-CHEST XRAY 2 VIEW : RADIOLOGY REPORT DATE OF SERVICE: 10/28/15 HISTORY: Patient has a cough and hypoxemia. CHEST 2 VIEWS 0535 HOURS The patient has undergone coronary artery bypass surgery. Heart and mediastinum are unremarkable. Pulmonary vascularity is normal. The lungs are clear. No effusion is seen. IMPRESSION: No acute process or change from 10/22/2015. DO Ani Quiroga 10/28/2015 08:30:00 / 10/28/2015 09:28:39 cc:Dr. Sandra Brunner This document has been electronically Signed by: On: DATE OF EXAM: 2015 RAD 0300-CHEST XRAY 2 VIEW : RADIOLOGY REPORT DATE OF SERVICE: 10/28/15 HISTORY: Patient has a cough and hypoxemia. CHEST 2 VIEWS 0535 HOURS The patient has undergone coronary artery bypass surgery. Heart and mediastinum are unremarkable. Pulmonary vascularity is normal. The lungs are clear. No effusion is seen. IMPRESSION: No acute process or change from 10/22/2015. DO Ani Quiroga 10/28/2015 08:30:00 / 10/28/2015 09:28:39 cc:Dr. Sandra Brunner This document has been electronically Signed by: VANESSA IGNACIO DO On: 2015 11:35A PN Result Amended on 2015-10-28 at 11:35:09. Previous status was DC. PN [id number]:40:00 Result Normal Range Units MPV H 11.3 7.3-10.4 FL 27-15-247489:11:00 Result Normal Range Units MPV H 12.1 7.3-10.4 FL [id number]:10:00 Result Normal Range Units MPV H 11.4 7.3-10.4 FL 89-29-732578:46:00 Chest X-Ray - 2 View PACs Image DATE OF EXAM: Oct 22 2015 RAD 0300-CHEST XRAY 2 VIEW : RADIOLOGY REPORT DATE OF SERVICE: 10/22/15 HISTORY: Followup of pneumonia CHEST 2 VIEWS 1650 HOURS Comparison is made with 10/21/2015. There are no acute infiltrates. Heart size and pulmonary vessels are normal. There are changes of prior sternotomy. There is some aortic tortuosity. IMPRESSION: No acute chest abnormality. MD TANNER Ellis/ok10/23/2015 08:14:00 / 10/23/2015 08:32:05 cc:Dr. Sandra Brunner This document has been electronically Signed by: On: DATE OF EXAM: Oct 22 2015 RAD 0300-CHEST XRAY 2 VIEW : RADIOLOGY REPORT DATE OF SERVICE: 10/22/15 HISTORY: Followup of pneumonia CHEST 2 VIEWS 1650 HOURS Comparison is made with 10/21/2015. There are no acute infiltrates. Heart size and pulmonary vessels are normal. There are changes of prior sternotomy. There is some aortic tortuosity. IMPRESSION: No acute chest abnormality. MD TANNER Ellis/ok10/23/2015 08:14:00 / 10/23/2015 08:32:05 cc:Dr. Sandra Brunner This document has been electronically Signed by: JOSIAH PRICE MD On: Oct 23 20159:46A PN Result Amended on 2015-10-23 at 09:46:22. Previous status was DC. PN [id number]:13:00 Chest X-Ray - 2 View PACs Image DATE OF EXAM: Oct 21 2015 RAD 0300-CHEST XRAY 2 VIEW : RADIOLOGY REPORT DATE OF SERVICE: 10/21/15 HISTORY:Cough for 3 days. CHEST - 2 VIEWS 1635 HOURS Comparison is made with 06/02/2015. There are changes of prior sternotomy and coronary surgery. Heart size and pulmonary vessels are normal. The lungs are clear. There is no pleural fluid. The aorta is ectatic and tortuous. IMPRESSION: 1. Findings of prior coronary artery surgery. 2. No acute chest abnormality. 3. Stable appearance since 06/02/2015. MD TANNER Ellis/michael 10/21/2015 17:00:00 / 10/21/2015 17:20:59 cc:Dr. Sandra Brunner This document has been electronically Signed by: On: DATE OF EXAM: Oct 21 2015 RAD 0300-CHEST XRAY 2 VIEW : RADIOLOGY REPORT DATE OF SERVICE: 10/21/15 HISTORY:Cough for 3 days. CHEST - 2 VIEWS 1635 HOURS Comparison is made with 06/02/2015. There are changes of prior sternotomy and coronary surgery. Heart size and pulmonary vessels are normal. The lungs are clear. There is no pleural fluid. The aorta is ectatic and tortuous. IMPRESSION: 1. Findings of prior coronary artery surgery. 2. No acute chest abnormality. 3. Stable appearance since 06/02/2015. MD TANNER Ellis/michael 10/21/2015 17:00:00 / 10/21/2015 17:20:59 cc:Dr. Sandra Brunner This document has been electronically Signed by: JOSIAH PRICE MD On: Oct 22 2015 12:13P PN Result Amended on 2015-10-22 at 12:13:45. Previous status was DC. PN [id number]:40:00 Result Normal Range Units MPV H 11.2 7.3-10.4 FL [id number]:03:00 Result Normal Range Units MPV H 11.7 7.3-10.4 FL History of procedures No procedures recorded for this patient visit. Functional status Functional Status Finding Observation Time Hearing Prob Loc none :31 Vision Problems yes :31 Vision Correct Dev glasses :31 Ambulation Asst Dev none :31 Range of Motion full :10 Muscle Strength RUE 5 ROM full resist 16-55-568541:10 Muscle Strength RLE 5 ROM full resist 39-52-034678:10 Muscle Strength LUE 5 ROM full resist 52-16-823268:10 Muscle Strength LLE 5 ROM full resist 01-24-317643:10 Transfers assist x 1 29-43-358397:10 Ambulation in room 65-56-403850:10 Balance unsteady :10 Bathing Assistance minimal :31 Eating Assistance minimal :39 Dressing Assistance minimal :31 Toileting Assistance minimal :31 Transfer Assistance moderate :31 Decline Slf Care/Mob no :31 Phys Cond Stable yes :31 Nutrition normal :10 Diet ADA specify calorie Comment: 1800 :10 Oral Cavity moist :10 Teeth missing (specify) :10 Dental Hygiene good 46-29-599960:10 Abdomen Appearance obese :10 Abdomen soft 16-65-796152:10 Bowel Sounds present :10 NG Tube no :10 Feeding Tube none 35-37-222668:10 Pinto no 70-75-964190:10 Cont Bladder Irr no 97-66-128400:10 Ostomy no 37-05-128154:10 Stool normal Comment: as reported :45 Color normal 69-01-265713:13 Consistency normal 41-30-844850:13 Urination normal 32-83-333936:10 Urine Clarity clear 98-97-613947:10 Urine Color yellow 71-51-077678:10 Quality sym/unlabored 56-65-643064:10 Cough non-productive 52-66-242565:10 Secretions yes :42 Secretion Consist thin :42 Secretion Color green :42 Breath Sounds RUL clear 06-32-778389:10 Breath Sounds RML diminished 83-00-371121:10 Breath Sounds RLL diminished 60-88-647234:10 Breath Sounds LARISA clear :10 Breath Sounds LLL diminished 60-75-863127:10 Airway natural 21-79-043017:10 Chest Tube no 44-75-407146:10 Oxygen no 04-84-573870:07 Oxygen Mask Type nasal cannula :42 Oxygen Flow Rate ra 47-81-075610:08 C-PAP no 13-18-529498:10 BI-PAP no :10 New Infection pneumonia :10 Temp >100.4 no :10 Temp <96.8 no :10 Chills with rigors no : HR > 90bpm no :10 Respirations > 20 no : Systolic <90 no :10 headache stiff neck no :10 WBC > 57354 no :10 WBC < 4000 no :10 Rapid Resp no :10 IV Site Location No IV ACCESS :11 IV Type peripheral :30 IV Site Information existing :30 IV Site Start Attmpt 2 times 92-22-060655:39 IV Site Michael 20 :30 IV Site Appearance WNL :30 IV Site Color clear :30 IV Site Patent yes :30 Dressing Changed yes :30 Dressing Type occlusive :30 Nursing Note Pt ready. Dismissal instructions, home med list, exit care, prescriptions and pt set up with a home rt machine given to pt. Pt verbalize understanding. Pt dismissed from floor per w/c accompany by staff to private vehicle to go home. Condition stable. :15 Cognitive Status Finding Observation Time Oriented To Date 5 Yes :[address] 5 Yes :31 Name 3 Objects 3 Yes :31 Name Object in Rm 2 Yes :31 Recall 3 Objects 3 Yes :31 Repeats a Phrase 1 Yes :31 Follows Verbal Direc 3 Yes :31 Follows Written Dire 1 Yes :31 Write a Sentance 1 Yes :31 Draw an Object 1 Yes :31 Mini Mental Total 25 points :31 Less than 20 Phys not applicable :31 Learning Ability comprehends well :17 Neurological no :17 Psychological no :17 Physical yes :17 Hearing no :17 [employer] Senior Officer Needed no :17 Sign Language no :17 Emotional yes :17 Vision yes :17 Laguage no :17 Financial no :17 Vital signs Type Value Date Respiration Rate 18breaths per minute :07 Pulse 68beats per minute :07 Oxygen Saturation 94% :07 BP Systolic 134mmHg :07 BP Diastolic 63mmHg :07 Temperature 97.4F :07 Height 67.5inches 79-90-830745:34 Weight 282.1LB 97-71-981922:34 Social history Type Value Smoking Status FORMER SMOKER Treatment Plan No treatment plan text is available for this visit. Hospital discharge instructions Discharge Date/Time 10-30-15 Accompanied By staff Relationship other (explain) Comment: staff Dismissal Condition good Disposition on DC home Valuables yes Valuable Type billfold/purse Comment: cell phone, clothes Valuables Returned T patient DC Inst/Educ Give yes Exit Care Educ Given yes Med/Side Effects Rev yes DC Med Rec Rev yes PNE Vac current Flu Vac current Tetanus Vac 2011 Diet Explained yes Follow up appt appt made (specify) Follow Up Appt D/T 11-06-15/0900
--- OUTSIDE RECORDS SUMMARY | 2018-10-10 10:11 | XMS REPORT ---
Author Author [facility] Medical Staff Organization [facility] Address [address] [id number] Phone [phone] Care Team Providers Care Personal Insurance Advisor Name Role Phone SANDRA TORRES MD PP [phone] Summary purpose TRANSITION OF CARE AUTO GENERATION [...] Reason Product Series # Effectiveness / Reaction Information Officer Lot / Expiration Given 01-18-2015 PNEUMOCOCCAL 23-SHARON P-SAC VAC 1 MERCK,SHARP,LYDIA [id number] / 12-20-2015 Relevant diagnostic tests and/or laboratory data RESULTS Radiology Results [id number]:02:00 MRI C-SPINE W/O CONT PACs Image DATE OF EXAM: Feb 15 2015 MRI 0218-MRI C SPINE WO CONTRAST : RADIOLOGY REPORT DATE OF SERVICE: 02/15/15 HISTORY: Myelopathy, evaluate for spinal stenosis and cord compression [facility] CERVICAL [id number] HOURS Imaging was performed in the sagittal and axial planes. No contrast was administered. The cervical vertebrae show normal height and alignment. There is no fracture or subluxation. There are no marrow lesions. The odontoid and craniocervical junction are normal. At C2-C3 and C3-C4, the disc contours, canal, facets, foramina, and nerve roots are normal. At C4-C5, there is moderate sized central and left paracentral disc herniation effacing the ventral aspect of the subarachnoid space and producing mild extrinsic mass effect on the cervical spinal cord. There is no cord edema. This is also aggravated by the canal being in the lower range of normal in diameter. At C5-C6, there is a small to moderate central and left paracentral disc herniation also effacing the subarachnoid space and ventral aspect of the cervical spinal cord. There is mild thickening of the ligamentum flavum dorsally. The canal is also mildly narrowed. At C6-C7, there is minimal posterior disc bulge and mild thickening of the ligamentum flavum dorsally. There is a mild degree of canal narrowing. There is no foraminal stenosis or facet arthrosis. There are no masses or areas of focal abnormal signal within the cervical spinal cord. IMPRESSION: 1. 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 2. Minimal disc bulge and dorsal ligamentous thickening with mild stenosis at C6-C7. No definite cord compression at this level. Dipesh Thorpe MD MWLane/az02/15/2015 11:20:00 / 02/15/2015 11:27:06 cc:Dr. [place] Priest This document has been electronically Signed by: On: DATE OF EXAM: Feb 15 2015 MRI 0218-MRI C SPINE WO CONTRAST : RADIOLOGY REPORT DATE OF SERVICE: 02/15/15 HISTORY: Myelopathy, evaluate for spinal stenosis and cord compression [facility] CERVICAL [id number] HOURS Imaging was performed in the sagittal and axial planes. No contrast was administered. The cervical vertebrae show normal height and alignment. There is no fracture or subluxation. There are no marrow lesions. The odontoid and craniocervical junction are normal. At C2-C3 and C3-C4, the disc contours, canal, facets, foramina, and nerve roots are normal. At C4-C5, there is moderate sized central and left paracentral disc herniation effacing the ventral aspect of the subarachnoid space and producing mild extrinsic mass effect on the cervical spinal cord. There is no cord edema. This is also aggravated by the canal being in the lower range of normal in diameter. At C5-C6, there is a small to moderate central and left paracentral disc herniation also effacing the subarachnoid space and ventral aspect of the cervical spinal cord. There is mild thickening of the ligamentum flavum dorsally. The canal is also mildly narrowed. At C6-C7, there is minimal posterior disc bulge and mild thickening of the ligamentum flavum dorsally. There is a mild degree of canal narrowing. There is no foraminal stenosis or facet arthrosis. There are no masses or areas of focal abnormal signal within the cervical spinal cord. IMPRESSION: 1. 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 2. Minimal disc bulge and dorsal ligamentous thickening with mild stenosis at C6-C7. No definite cord compression at this level. Dipesh Thorpe MD MWD/az02/15/2015 11:20:00 / 02/15/2015 11:27:06 cc:Dr. [place] Priest This document has been electronically Signed by: DIPESH THORPE On: Feb 15:02P Result Amended on 2015-02-15 at 13:03:05. Previous status was [place]. History of procedures No procedures recorded for [...]
--- OUTSIDE RECORDS SUMMARY | 2018-10-10 10:12 | XMS REPORT ---
Author Author [facility] Medical Staff Organization [facility] Address [address] [id number] Phone [phone] Care Team Providers Care Ramp Service Agent Name Role Phone SANDRA TORRES MD PP [phone] Summary purpose TRANSITION OF CARE AUTO GENERATION Chief Complaint and Reason for Visit Admit Diagnosis 1 CHEST PAIN RULE OUT CO Problem list No authorized problems tracked for continuity of care are available for this visit. Encounters The following conditions tracked for encounter diagnoses were recorded for this visit: Finding or Diagnosis Status Certainty Chronicity Onset *CHEST PAIN Active Medications Home Medications Medication Directions Started Status Source Fish Oil 500 mg capsule 500 mg oral 1 Daily Current lwjzdkp-zuldrorqw-bnmifo-zinc tablet 1000 mg oral 1 Daily Current ibuprofen 600 mg tablet 600 mg oral 3 Times Daily for pain Current Rx Discharge Report Xanax 0.25 mg tablet 0.25 mg oral 3 Times Daily Current metformin oral 850 mg oral 2 Times Daily Current trazodone 100 mg tablet 200 mg oral At Bed Time Current Lyrica 50 mg capsule 1 capsule oral 3 Times Daily Current Miralax 17 gram oral powder packet 17 gm oral 1 Daily Current oxycodone 10 mg tablet 1 tablet oral 4 Times Daily Current Patient medication list Cymbalta 30 mg capsule,delayed release 1 capsule oral 1 Daily Current Patient medication list Amy-Temple Plus Cold 325 mg-2 mg-20 mg effervescent tablet 1 tablet oral As Needed Current Patient medication list Celexa 40 mg tablet 0.5 tablet oral 1 Daily Current Patient medication list lisinopril 5 mg tablet 1 tablet oral 1 Daily Current Patient medication list Mucinex 600 mg tablet, extended release 1 tablet oral 2 Times Daily Current Patient medication list alprazolam 0.25 mg tablet 1 tablet oral PRN 3 Times A Day Current Doctor's office Aspirin Low Dose 81 mg tablet,delayed release 1 tablet oral 1 Daily Current Patient medication list folic acid 1 mg tablet 1 tablet oral 1 Daily Current Doctor's office multivitamin tablet 1 tablet oral 1 Daily Current Doctor's office Novolog Flexpen 100 unit/mL subcutaneous 10 units subQ Before Meals Current Doctor's office Allergies, adverse reactions, alerts Allergen Category Ingredient Status Reaction Severity Onset No Known Drug Allergy No known drug allergies No known drug allergies Confirmed or Verified Immunizations Status Date Not Given Reason Product Series # Effectiveness / Reaction Sales Secretary Lot / Expiration Given 01-18-2015 PNEUMOCOCCAL 23-SHARON P-SAC VAC 1 MERCK,SHARP,[facility] [id number] / 12-20-2015 Relevant diagnostic tests and/or laboratory data RESULTS Chemistry [id number]:43:00 Result Normal Range Units Sodium 137 134-145 mEq/l Potassium 4.7 3.5-5.1 mEq/l Chloride 98 98-107 mEq/l CO2 H 28.8 22-28 mEq/l Glucose H 277 70-105 mg/dl BUN H 20 7-18 mg/dl Creatinine 0.99 0.6-1.0 mg/dl Calcium 8.7 8.4-10.2 mg/dl Osmolality 286.4 280-300 mOsm/L Anion GAP 10.2 8-16 BUN/Creatinine Ratio H 20.2 10-20 BNP- Brain Natriuretic Peptide 106 0-900 pg/ml Estimated GFR L 58 >=60 mL/min/1.7 Hematology 95-12-176521:43:00 Result Normal Range Units WBC 7.1 4.8-10.8 103/uL RBC 5.4 4.2-5.4 106/uL HGB 14.6 12.0-16.0 g/dl HCT 41.3 36.9-47.0 % MCV L 77.1 81-99 FL MCH 27.2 27-31 pg MCHC 35.4 33-37 g/dl RDW 13.9 11.5-15.5 % PLT 160 130-400 103/uL MPV H 11.8 7.3-10.4 FL Neutro % H 74.4 40-70 % Lymph % L 14.4 20-40 % [place]he % 8.1 0-10.0 % Eos % 1.8 0-7.0 % Baso % 1.3 0-2 % Neutro # 5.3 1.5-7.5 103/uL Lymph # 1.0 0.9-4.0 103/uL Ashe # 0.6 0-0.8 103/uL Eos # 0.1 0-0.6 103/uL Baso # 0.1 0-0.1 103/uL Reference Lab ([facility]out) :43:00 Result Normal Range Units D-Dimer H 504 0-400 ng/ml Cardiac 30-85-911812:00:00 Result Normal Range Units Troponin I < [...] patient history should be interpreted with caution. :56:00 Result Normal Range Units CKMB 1.7 0-3.6 ng/ml Patient samples may contain heterophilic [...] patient history should be interpreted with caution. :43:00 Result Normal Range Units Troponin I < [...] should be interpreted with caution. Radiology Results :27:00 Chest X-Ray - 2 View PACs Image DATE OF EXAM: Feb 06 2015 RAD 0300-CHEST XRAY 2 VIEW : RADIOLOGY REPORT DATE OF SERVICE: 02/06/15 HISTORY: Patient has chest pain. CHEST 2 VIEWS 1015 HOURS The patient has undergone coronary artery bypass surgery. The heart and mediastinum are normal. Pulmonary vascularity is normal. Lungs are clear. No effusion is seen. IMPRESSION: Negative study of the chest. There is no pleural fluid. Pleural fluid was seen posteriorly on 10/03/2014 and this apparently has cleared. Vanessa Ignacio DO /mn 02/06/2015 13:03:00 / 02/06/2015 13:11:30 cc:Dr. Sandra Torres This document has been electronically Signed by: On: DATE OF EXAM: Feb 06 2015 RAD 0300-CHEST XRAY 2 VIEW : RADIOLOGY REPORT DATE OF SERVICE: 02/06/15 HISTORY: Patient has chest pain. CHEST 2 VIEWS 1015 HOURS The patient has undergone coronary artery bypass surgery. The heart and mediastinum are normal. Pulmonary vascularity is normal. Lungs are clear. No effusion is seen. IMPRESSION: Negative study of the chest. There is no pleural fluid. Pleural fluid was seen posteriorly on 10/03/2014 and this apparently has cleared. Vanessa Ignacio DO /mn 02/06/2015 13:03:00 / 02/06/2015 13:11:30 cc:Dr. Sandra Torres This document has been electronically Signed by: VANESSA IGNACIO DO On: Feb 06 20151:27P CHEST PAIN RULE OUT CO Result Amended on 2015-02-06 at 13:27:34. Previous status was [place]. CHEST PAIN RULE OUT CO [id number]:43:00 Result Normal Range Units MPV H 11.8 7.3-10.4 FL History of procedures No procedures recorded for this patient visit. Functional status Functional Status Finding Observation Time Hearing Prob Loc none 71-44-545954:48 Vision Problems yes :48 Vision Correct Dev glasses 02-49-994234:48 Ambulation Asst Dev none :48 Range of Motion full :28 Muscle Strength RUE 5 ROM full resist :28 Muscle Strength RLE 5 ROM full resist :28 Muscle Strength LUE 5 ROM full resist :28 Muscle Strength LLE 5 ROM full resist :28 Transfers independent :28 Ambulation in room :28 Balance steady :28 Bathing Assistance none :48 Eating Assistance none :48 Dressing Assistance none :48 Toileting Assistance none :48 Transfer Assistance minimal :48 Decline Slf Care/Mob yes (consult PT) :48 Phys Cond Stable yes :48 Nutrition normal :28 Diet heart healthy :28 Oral Cavity moist :28 Teeth missing (specify) :28 Dental Hygiene good : Abdomen Appearance obese : Abdomen soft : Bowel Sounds present :28 NG Tube no : Feeding Tube none :28 Pinto no :28 Ostomy no :28 Stool normal :28 Urination normal :28 Quality sym/unlabored : Cough absent : Secretions no : Breath Sounds RUL clear :28 Breath Sounds RML clear :28 Breath Sounds RLL clear :28 Breath Sounds LARISA clear :28 Breath Sounds LLL clear :28 Airway natural :28 Chest Tube no :28 Oxygen no :28 Oxygen Flow Rate RA :00 C-PAP no :28 BI-PAP no :28 Temp >100.4 no : Temp <96.8 no : Chills with rigors no : HR > 90bpm no :28 Respirations > 20 no :28 Systolic <90 no :28 headache stiff neck no :28 WBC > 71706 no : WBC < 4000 no : Rapid Resp no :28 IV Site Location Rt FA :15 IV Type peripheral :15 IV Site Information discontinued : IV Site Start Attmpt 3 times :58 IV Site Michael 22 :28 IV Site Appearance WNL :28 IV Site Color clear : IV Site Patent yes :28 Dressing Changed no (explain) : Dressing Type occlusive :28 Nursing Note Pt amb off unit to POV escorted by Bishop HENNESSY. Pt states she is driving herself home. :40 Cognitive Status Finding Observation Time Oriented To Date 5 Yes :[address] 5 Yes :48 Name 3 Objects 3 Yes :48 Name Object in Rm 2 Yes :48 Recall 3 Objects 3 Yes :48 Repeats a Phrase 1 Yes :48 Follows Verbal Direc 3 Yes :48 Follows Written Dire 1 Yes :48 Write a Sentance 1 Yes :48 Draw an Object 1 Yes :48 Mini Mental Total 25 points :48 Less than 20 Phys not applicable :48 Learning Ability comprehends well :06 Neurological no :06 Psychological no :06 Physical no :06 Hearing no :06 Lab Engineer Needed no :06 Sign Language no :06 Emotional yes :06 Vision yes :06 Laguage no :06 Financial no 43-21-334248:06 Vital signs Type Value Date Respiration Rate 18breaths per minute :00 Pulse 68beats per minute :00 Oxygen Saturation 94% :00 BP Systolic 120mmHg 83-43-640184:00 BP Diastolic 62mmHg 68-33-996569:00 Temperature 97.8F 87-52-573523:00 Height 67.5inches 36-42-036393:30 Weight 266LB 78-43-884553:30 Social history Type Value Smoking Status FORMER SMOKER Treatment Plan No treatment plan text is available for this visit. Hospital discharge instructions Discharge Date/Time 02/07/2015 16:40 Accompanied By Self Dismissal Condition good Disposition on DC home Valuables yes Valuable Type billfold/purse Valuables Returned T patient DC Inst/Educ Give yes Exit Care Educ Given yes Med/Side Effects Rev yes DC Med Rec Rev yes Immun Indicated no PNE Vac 01/18/2015 Flu Vac 10/06/2014 Tetanus Vac unknown Diet Explained yes Follow up appt already scheduled Follow Up Appt D/T 02-12-2015 08:15
--- OUTSIDE RECORDS SUMMARY | 2018-10-10 10:12 | XMS REPORT ---
Author Author [facility] Medical Staff Organization [facility] Address [address] [phone] Phone [phone] Care Team Providers Care Audit Manager Name Role Phone MELISSA MEDEROS, SANDRA FONG [phone] Summary purpose TRANSITION OF CARE AUTO GENERATION [...] Reason Product Series # Effectiveness / Reaction Automotive Teacher Lot / Expiration Given 01-18-2015 PNEUMOCOCCAL 23-SHARON P-SAC VAC 1 MERCK,SHARP,LYDIA [id number] / 12-20-2015 Relevant diagnostic tests and/or laboratory [...]
--- OUTSIDE RECORDS SUMMARY | 2018-10-10 10:12 | XMS REPORT ---
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 Encounters The following conditions tracked for encounter diagnoses were recorded for this visit: Finding or Diagnosis Status Certainty Chronicity Onset *ABDOMINAL PAIN Active *CONSTIPATION Active Medications Discharge Medications Status Medication Directions Current Acetaminophen (TYLENOL) 325 mg: TABLET 650 MG oral Give PO Q4 Hours As Needed for PAIN/FEVER Current alprazolam 0.25 mg tablet 0.25 milligram (s) oral 3 xDaily As Needed anxiety Current Bisacodyl (DULCOLAX): TABLET DR 1 - 2 tab(s) oral Give PO As Needed for CONSTIPATION MAY TAKE 1-2 TABLETS every other day PRN FOR CONSTIPATIONDO NOT CRUSH OR CHEW; SWALLOW WHOLE Current clindamycin 150 mg capsule 150mg oral oral 3 xDaily 07-08-21 to complete 10 days (this is a lower dose then given by the dentist originally) Current Cymbalta 30 mg capsule,delayed release 60mg oral oral Twice a day depression Current Glycerin (Adult) (ADULT SUPPOSITORY): SUPP.RECT 1 suppository(ies) rectal Give REC Twice a day for 2 days then stop Current Insulin Aspart (NOVOLOG FLEXPEN): INSULN PEN Sliding Scale subcutaneous Give SUBQ As Needed for HYPERGLYCEMIA Current Levemir Flexpen 100 unit/mL (3 mL) solution subcutaneous insulin pen 10 unit(s) subcutaneous Daily diabetes Current Levemir Flexpen 100 unit/mL (3 mL) solution subcutaneous insulin pen 45 unit(s) subcutaneous Bedtime daily diabetes Current Lipitor 40 mg tablet 40 milligram (s) oral Bedtime daily high cholesterol Current lisinopril 5 mg tablet 5 milligram (s) oral Daily blood pressure Current Lyrica 50 mg capsule 225 milligram (s) oral oral Twice a day resume home dose neuropathy Current Nitrostat 0.4 mg sublingual tablet 0.4 milligram (s) Sublingual As Needed Chest Pain Current oxycodone 10 mg tablet 1-2 tabs oral Q6 Hours As Needed pain Current Plavix 75 mg tablet 75 milligram (s) oral Daily blood thinner Current Protonix 40 mg tablet,delayed release 40 milligram (s) oral Daily GERD Current Sucralfate (CARAFATE) 1 gram: TABLET 1 G oral Give PO Before Meals and Bedtime can take up to 4 times daily however be sure it is on your stomach before clindamycin dose Current temazepam 15 mg capsule 1 capsule(s) oral oral Bedtime as needed for insomnia sleep Current trazodone 100 mg tablet 1 tab oral oral Bedtime daily Stopped Celexa 40 mg tablet 20 milligram (s) oral Daily depression Stopped Novolog Flexpen 100 unit/mL subcutaneous 35 unit(s) subcutaneous 3 xDaily with Meals [id number] diabetes Allergies, adverse reactions, alerts Allergen Category Ingredient Status Reaction Severity Onset No Known Drug Allergy No known drug allergies No known drug allergies Confirmed or Verified Immunizations Status Date Not Given Reason Product Series # Effectiveness / Reaction Director Of Gift Planning Lot / Expiration Given 01-18-2015 PNEUMOCOCCAL 23-SHARON P-SAC VAC 1 MERCK,SHARP,LYDIA [id number] / 12-20-2015 Relevant diagnostic tests and/or laboratory data RESULTS [id number]:21:00 Discharge Summary DISCHARGE SUMMARY DISCHARGE DIAGNOSIS: 1. Constipation. 2. Abdominal pain. 3. Gastritis. 4. Insulin-dependent diabetes, poorly controlled, but with good control upon discharge. 5. Depression. HISTORY OF PRESENT ILLNESS: This 60-year-old female was initially admitted to observation for further evaluation of epigastric pain. CT scan of the abdomen revealed known adrenal myelolipoma that was slightly enlarged compared to previous, but not believed to be contributing to her pain. An EGD was performed also while in observation for further evaluation of this pain. EGD revealed chronic gastritis upon biopsy. H. pylori negative. When she was not improved, she was admitted as an inpatient for further evaluation and treatment. HOSPITAL COURSE: Labs were followed through her stay. CBCs were all grossly within normal limits. Electrolytes, liver and kidney functions all also within normal limits through the stay. She did have some markedly elevated blood sugars upon admission, but with institution of Levemir 10 in the morning and 45 at night and a sliding scale insulin her blood sugars improved dramatically. At this point in reviewing her blood sugars, she is averaging a blood sugar of approximately 100 to 125 at this point. Her appetite has been poor. She did have a significant persistent abdominal pain. Followup KUB showed prominent bowel gas pattern up to middle abdomen which is where she was having a lot of pain as well as retained barium on the right side of the colon. On the we added glycerin suppositories routinely and encouraged her walk in the halls. We also reconsulted the surgeon who did not feel that the myelolipoma was contributing to her pain at this point and we continued with treatment with IV protein pump inhibitors and oral Carafate as we had started in observation. Dulcolax suppository did help her produce bowel movements and release some of this intense pain in the mid to upper abdomen. She has been able to eat more. At this point, she states she is eating a little bit more at each setting up to a quart or more of her meals. She is not having any vomiting and bowels are moving with the help of the glycerin suppositories as well as Dulcolax tablets. She does take MiraLax at home. Also of note, the patient was on clindamycin prior to her admission for dental infection and that has not yet been restarted. However, upon discharge we will start that at a low dose and pre administer Carafate and also will continue with probiotic upon discharge. Her pain was controlled with IV Dilaudid throughout her stay. She was given IV fluids as necessary and her oral normal home Oxycodone script was continued in the hospital for her chronic back pain. She had some intermittent high blood pressures, but for the most part have been in the 120s to 140s. DISCHARGE PLANNING: Per Dr. Brunner. The patient is being discharged home where she will plan to follow up with me in clinic in 6 to 10 days. She will bring in her home medicines in their original bottles as we did find some discrepancies in her home medication list that she reported to us versus what has been being filled at the pharmacy. Her home medications and discharge planned medications did change a bit. She will continue on Tylenol as needed, Alprazolam 0.25 mg 3 times daily as needed anxiety, Dulcolax tablets 1 to 2 every other day or so if needed for persistent constipation. She will start MiraLax one scoop daily she may increase to twice daily. She will take Clindamycin at a decreased dose of 150 3 times daily and she will take this with premedication of Carafate and will remain on align probiotic daily, Cymbalta 60 mg twice a day, glycerin suppository twice daily for the next 2 days then try to stop taking this, but use a Dulcolax tap as needed and she may also use a Dulcolax suppository if needed for persistent constipation, sliding scale NovoLog, Humulin, Levemir pin she will use 10 in the morning and 45 in the evening, Lipitor 40 mg at bedtime, Lisinopril 5 daily, Lyrica 225 twice daily, nitroglycerin sublingual as needed, Oxycodone 10 1 to 2 every 6 hours as needed for pain. She had been taking that scheduled here. Plavix 75 mg daily, Protonix 40 mg daily, Sucralfate 1 gram 4 times a day for a week, Temazepam 15 mg as needed for sleep, Trazodone which is her home medicine will be restarted at 100 mg at bedtime. Em Piña PA-C for MD GALI Aldana/lisha 02/04/2016 12:21:45/02/04/2016 13:11:16 Clinic Code: 11577 [facility] [address] [place] [address] <END HEADER> [id number]:16:00 Progress Note PROGRESS NOTE 02/03/2016 19:16:07 S:Nica is getting along well this evening.She is sitting up in bed eating dinner with no complaints.She had a bowel movement on Wednesday, bowel movement on Wednesday and again today.She states she was up in the zaman walking today, and the occasional abdominal cramping would make her stop in the hallway, but she could continue without difficulty.She states she is using less pain medication than previous and is generally doing well. O:VITAL SIGNS:Temperatures remained afebrile, temperature 98.6, pulse 65, blood pressure 159/64, respirations 18, oxygen saturation 96% on room air.GENERAL:This is a pleasant adult female lying in bed eating dinner, appears comfortable, no acute distress.Alert and oriented.HEENT:Clear.LUNGS:Clear throughout.No rales, rhonchi or wheezes noted.HEART:Regular rate and rhythm.ABDOMEN:Soft, appears distended.Patient is obese.Tenderness is noted in the midabdomen, but mild.There is no rebound tenderness noted. EXTREMITIES:No edema noted.LABORATORY/ X-RAY/EKG DATA:Complete blood count, white blood cell count 5300, hemoglobin 13.4, hematocrit 39.6, platelets 145,000.Chemistry, sodium 144, potassium 3.9, chloride 108, glucose 90, BUN 9, creatinine 0.75, estimated GFR 79.Abdomen 2 view shows mild constipation with residual contrast within the bowel.No active or acute abdominal pathology. A:1)Constipation.2)Gastritis.3)Epigastric midabdominal pain of uncertain etiology. P:1)Continue with glycerin suppositories and Dulcolax as needed.2) Anticipate discharge tomorrow. Jorge Bruce MD MB/jeff 02/03/2016 19:16:04/27/1102/03/2016 19:47:11 Clinic Code: [facility]: [facility] [address] [place] [address]<END HEADER> [id number]:07:00 Progress Note PROGRESS NOTE 02/02/2016 14:07:26 S: Nica continues to have abdominal pain today.She has used the glycerin suppositories prescribed to her yesterday pretty much on schedule over the last 24 hours.She did have a small bowel movement yesterday and a small bowel movement today.She states both were very minute.She states she is attempting to eat her meals.She has been eating about half at breakfast and at lunch.She does state that her pain medication does not seem to last her until the next dose, rating her pain very high in her abdomen still.She feels that the Oxycodone that has been prescribed by mouth has not made any difference at this time. O:GENERAL:This is a pleasant adult female lying in the bed.Appears comfortable.VITAL SIGNS:Temperature has remained afebrile with a temperature this afternoon at 97.7, pulse 66, blood pressure 133/69, respirations 18, oxygen saturation 95% on room air.HEENT:Clear. LUNGS:Clear throughout.No rales, rhonchi or wheezes noted.HEART: Regular rate and rhythm.ABDOMEN:Soft, appears distended.Patient is obese.She does have tenderness mid-abdomen.She states this is worse when she sits up in the bed.There is no rebound tenderness noted. Bowel sounds are hypoactive with some high-pitched sounds throughout. LABORATORY:Complete blood count, white blood cell count 4700 this morning, hemoglobin 12.7, hematocrit 37.1, platelets up to 130,000. Chemistry, sodium 144, potassium 3.7, chloride 108, glucose 101, BUN 11, creatinine 0.74 and estimated GFR 81. A:1)Epigastric mid-abdominal pain of uncertain etiology.2) Gastritis.3)Constipation. P:1)Continue with glycerin suppositories and start using Dulcolax today.2)Repeat complete blood count and basic metabolic panel in the morning.3)KUB and upright in the morning as well. Jorge Bruce MD MB/jeff 02/02/2016 14:07:26/02/02/2016 18:45:04 Clinic Code: [facility] [address] [place] [address]<END HEADER> [id number]:39:00 Progress Note PROGRESS NOTE 02/01/2016 10:39:14 S: The patient says she is having pain this morning. O: Her abdomen is a little bit tender. She is afebrile. Pulse is 69, blood pressure 131/50. Weight is up a pound or 2. LABORATORY DATA:Shows an essentially normal CBC, platelets are a little bit low.Chemistry profile shows hyperglycemia, normal kidney function, hypoalbuminemia. A: I believe her pain is probably gas pain. I discussed this with Tiffani Piña this morning. 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 Tiffani was wondering about a potential hernia.I really cannot tell because of the patient's obesity.CT scan did not. Keith Quintanilla MD CVH/jt02/01/2016 10:39:14/02/01/2016 14:29:33 Clinic Code: [facility] [address] [address]<END HEADER> [id number]:17:00 Progress Note PROGRESS NOTE 02/01/2016 08:17:04 S: Patient complaints that she continues to have abdominal pain today. This is all mainly in the mid abdomen. She got up and walked yesterday in the halls and also and went down for x-ray and she said each of these activities made the pain worse.She was able to eat about half of her supper last night and does not feel that food made it any worse.She also states the pain medication that we are giving her does not seem to work, as well as once did. She often needs 2 doses in order to get her pain under control when he becomes more severe. She recalls Dr. Quintanilla coming in and visiting her yesterday, but does not recall what his plans were for her.Her bowels have not moved since she has been admitted. O: VITAL SIGNS:Her vital signs show a temperature of 97.5, pulse 69, blood pressure 131/50, respirations 18, and oxygen saturation is 94% on room air. GENERAL:The patient is a pleasant, adult female who is lying in her bed, appears comfortable. HEART:Regular rate and rhythm. LUNGS: Clear. ABDOMEN:Abdomen Obese. She has tenderness in the mid abdomen epigastric region and this is made worse when she flexes at her abdomen, and it is felt as though she has a ventral hernia in this area too that is painful.There is no rebound tenderness and bowel sounds are hypoactive, but present. LABORATORY DATA:There is no new lab to report for today, but she did have a KUB performed yesterday. This revealed a nonspecific gaseous distention of the colon with no acute abnormalities. She does still have contrast of the right side of the colon. A: 1.Persisting epigastric/mid abdominal pain of uncertain etiology. 2.Gastritis. Biopsy revealing this to be chronic gastritis. 3.Constipation. P: I am going to start her and glycerin suppositories at about every 8 hours to see if this helps reduce some of that gaseous distention and potentially also help her bowels to move. I am going to encourage ambulation as much as she can tolerate through the day.I am adjusting her Dilaudid dose for p.r.n. reasons, but will continue her oxycodone at the same dose which she is using for chronic pain. We will check labs again in the morning. ART Arrieta/mason 02/01/2016 08:17:01/26/0902/01/2016 08:54:23 Clinic Code: cc: <[facility] [address] [place] [address]<END HEADER> [id number]:37:00 Progress Note PROGRESS NOTE 01/31/2016 16:37:57 S: The patient is still having some pain today; maybe not quite as bad. She has been up ambulating the halls a couple of times a day, passing gas; bowels have not moved. O: VITAL SIGNS: The patient is afebrile. Temperature 98.7, pulse 61, blood pressure 131/55, respirations 18, and oxygen saturation 91% on room air. ABDOMEN: Seems less distended and more soft today; less tender. LABORATORY/X-RAY/ELECTROCARDIOGRAM DATA: Complete blood count is showing a white count of 5500, hemoglobin 13.4. Chemistries are showing electrolytes to be normal. KUB today showinggassy distention of the colon with barium in the right colon from previous CT. A: 1.Abdominal pain, which seems to be improved. 2.Large bowel distention on KUB. P: 1.The patient is being given milk of magnesia this afternoon. 2.We will encourage her to continue walking. 3.We will continue with current pain relief measures. Harinder Brunner MD PROTOTYPE SEWER/cdj01/31/2016 16:37:57/01/31/2016 17:29:38 Clinic Code: cc: <[facility] [address] [place] [address]<END HEADER> [id number]:03:00 Progress Note PROGRESS NOTE 01/30/2016 15:03:27 S: Nica is getting along fairly well. Still having abdominal pain that she rates at a 10. She is getting up to the bathroom. She has not been eating much. She is trying to eat more today. Bowels have not moved since admission. O: VITAL SIGNS: She has been afebrile. Temperature 99.2, pulse 61, blood pressure 146/65, respirations 18. LUNGS: Clear. ABDOMEN: Soft. Diffuse tenderness is noted on the left side. HEART: Normal sinus rhythm. EXTREMITIES: Without edema. Intake and output show she was positive for 300 cc with one unmeasured void. LABORATORY: Chemistries showing electrolytes to be normal. Estimated GFR of 70. A: 1. Acute gastritis. 2. Abdominal pain. 3. Type 2 diabetes. P: 1. Going to encourage ambulation and consult physical therapy. 2. CBC and BMP in the morning. 3. Dulcolax as needed for constipation. 4. Incentive spirometry every 2 hours while awake. MD JHOAN Aldana/lisha 01/30/2016 15:03:27/01/30/2016 15:48:00 Clinic Code: [facility]: [facility] [address] [place] [address]<END HEADER> [id number]:21:00 Progress Note PROGRESS NOTE 01/29/2016 11:21:28 S: Nica is doing fairly well having to take oxycodone a few times through the night for pain relief. She is feeling hungry this morning. Bowels have not moved but she feels like once she starts eating they probably will. She is urinating without problems. O: VITAL SIGNS: She has been afebrile. Temperature 98.2, pulse 68, blood pressure 144/42, respirations 20, and oxygen saturation is 94% on room air. LUNGS: Clear. HEART: Normal sinus rhythm. ABDOMEN: Soft. Tenderness is noted in the left abdomen and left lower quadrant. Intake and output show she was positive for 800 cc overnight. LABORATORY: CBC showing a white count of 6500, hemoglobin 15.4, normal differential. Chemistries are essentially normal. Hemoglobin A1c 10.6. A: 1. Acute gastritis. 2. Abdominal pain. 3. Type 2 diabetes poorly controlled. P: 1. Going to start diet today. 2. Will slow IV fluids. Harinder Brunner MD PROTOTYPE SEWER/nh 01/29/2016 11:21:28/01/29/2016 13:29:18 Clinic Code: cc: <START [facility] [address] [address]<END HEADER> [id number]:25:00 Progress Note PROGRESS NOTE 01/27/2016 19:25:00 S:Patient has continued to have pain all day today. CT scan of the abdomen was performed earlier in the day and still revealed myolipoma, but nothing was found to be the cause of her pain.Dr. Montano was consulted and will be in in the morning to see her to consider an EGD. She has not had anything to eat or drink today because we were keeping her NPO in case of EGD this afternoon. She states she is feeling a little hungry now. She just had a Carafate about an hour ago and feels that might be slightly easing some of the discomfort in her abdomen, but she is stating that she is hungry. O:VITAL SIGNS:Her vital signs have all been stable, temperature 99.2, pulse 69, blood pressure 119/52, respirations 16, and oxygen saturation is 92% on room air.GENERAL:The patient is a pleasant adult female who appears depressed and in some pain, rubbing her abdomen.HEART:Regular rate and rhythm.LUNGS:Clear.ABDOMEN: Soft, but tender in the epigastric region. Bowel sounds are present. EXTREMITIES:Do not reveal any edema.Laboratory results from today are reviewed and are on her chart without much of any noted change from yesterday. Glucose was elevated. A:1)Epigastric pain of uncertain etiology.2)Type 2 diabetes, uncontrolled. P:EGD is scheduled for morning. We will continue with IV pain management and Carafate and IV Protonix night.We will advance her diet slightly to clear to full liquid diet as tolerated today and then place her NPO after midnight for said EGD. CORNELIO Arrieta-Domitila Brunner MD SB/pb 01/27/2016 19:25:00/01/27/2016 19:54:32 Clinic Code: cc: <START [facility] [address] [address]<END HEADER> Routine Urinalysis :30:00 Result Normal Range Units Color YELLOW Clarity Clear Specific [place] 1.015 1.003-1.035 pH 5.0 4.5-8.0 Glucose 3+ Bilirubin NEGATIVE Ketones 1+ Protein TRACE Urobilinogen 0.2 0-0.2 E.U./dL Nitrites NEGATIVE Blood TRACE Leukocytes NEGATIVE WBCs 0-5 RBCs 0-5 Squamous Epithelial 2+ Bacteria Rare Amount Chemistry :55:00 Result Normal Range Units Sodium 144 134-145 mEq/l Potassium 3.9 3.5-5.1 mEq/l Chloride H 108 98-107 mEq/l CO2 H 29.1 22-28 mEq/l Glucose 90 70-105 mg/dl BUN 9 7-18 mg/dl Creatinine 0.75 0.6-1.0 mg/dl Calcium L 7.9 8.4-10.2 mg/dl Osmolality 285.1 280-300 mOsm/L Anion GAP L 6.9 8-16 BUN/Creatinine Ratio 12.0 10-20 Estimated GFR 79 >=60 mL/min/1.7 [id number]:40:00 Result Normal Range Units Sodium 144 134-145 mEq/l Potassium 3.7 3.5-5.1 mEq/l Chloride H 108 98-107 mEq/l CO2 27.8 22-28 mEq/l Glucose 101 70-105 mg/dl BUN 11 7-18 mg/dl Creatinine 0.74 0.6-1.0 mg/dl Calcium L 8.0 8.4-10.2 mg/dl Osmolality 286.4 280-300 mOsm/L Anion GAP 8.2 8-16 BUN/Creatinine Ratio 14.9 10-20 Estimated GFR 81 >=60 mL/min/1.7 [id number]:50:00 Result Normal Range Units Sodium 141 134-145 mEq/l Potassium 4.6 3.5-5.1 mEq/l Chloride 107 98-107 mEq/l CO2 H 29.4 22-28 mEq/l Glucose H 166 70-105 mg/dl BUN 11 7-18 mg/dl Creatinine 0.87 0.6-1.0 mg/dl Calcium L 8.3 8.4-10.2 mg/dl TP - Total Protein L 5.7 6.0-8.3 g/dl Albumin L 2.9 3.5-5 g/dl Bilirubin - Total 0.4 0.1-1.0 mg/dl AST 13 10-42 IU/L ALT 20 12-65 IU/L ALP 65 25-72 IU/L Osmolality 284.4 280-300 mOsm/L Albumin/Globulin Ratio 1.0 0-8 Anion GAP L 4.6 8-16 BUN/Creatinine Ratio 12.6 10-20 Estimated GFR 67 >=60 mL/min/1.7 :35:00 Result Normal Range Units Sodium 141 134-145 mEq/l Potassium 3.9 3.5-5.1 mEq/l Chloride 106 98-107 mEq/l CO2 H 29.4 22-28 mEq/l Glucose H 188 70-105 mg/dl BUN 11 7-18 mg/dl Creatinine 0.86 0.6-1.0 mg/dl Calcium L 8.2 8.4-10.2 mg/dl Osmolality 285.6 280-300 mOsm/L Anion GAP L 5.6 8-16 BUN/Creatinine Ratio 12.8 10-20 Estimated GFR 68 >=60 mL/min/1.7 :30:00 Result Normal Range Units Sodium 141 134-145 mEq/l Potassium 4.0 3.5-5.1 mEq/l Chloride 105 98-107 mEq/l CO2 H 31.0 22-28 mEq/l Glucose H 186 70-105 mg/dl BUN 13 7-18 mg/dl Creatinine 0.84 0.6-1.0 mg/dl Calcium L 8.1 8.4-10.2 mg/dl TP - Total Protein L 5.7 6.0-8.3 g/dl Albumin L 3.1 3.5-5 g/dl Bilirubin - Total 0.4 0.1-1.0 mg/dl AST 15 10-42 IU/L ALT 26 12-65 IU/L ALP 71 25-72 IU/L Osmolality 286.2 280-300 mOsm/L Albumin/Globulin Ratio 1.2 0-8 Anion GAP L 5.0 8-16 BUN/Creatinine Ratio 15.5 10-20 Estimated GFR 70 >=60 mL/min/1.7 :15:00 Result Normal Range Units Sodium 143 134-145 mEq/l Potassium 4.6 3.5-5.1 mEq/l Chloride 104 98-107 mEq/l CO2 H 29.7 22-28 mEq/l Glucose 102 70-105 mg/dl BUN 9 7-18 mg/dl Creatinine 0.83 0.6-1.0 mg/dl Calcium L 8.3 8.4-10.2 mg/dl TP - Total Protein 6.2 6.0-8.3 g/dl Albumin L 3.2 3.5-5 g/dl Bilirubin - Total 0.6 0.1-1.0 mg/dl AST 21 10-42 IU/L ALT 30 12-65 IU/L ALP H 77 25-72 IU/L Osmolality 283.9 280-300 mOsm/L Albumin/Globulin Ratio 1.1 0-8 Anion GAP 9.3 8-16 BUN/Creatinine Ratio 10.8 10-20 Estimated GFR 71 >=60 mL/min/1.7 [id number]:00:00 Result Normal Range Units Sodium 139 134-145 mEq/l Potassium 4.3 3.5-5.1 mEq/l Chloride 104 98-107 mEq/l CO2 H 28.2 22-28 mEq/l Glucose H 248 70-105 mg/dl BUN 11 7-18 mg/dl Creatinine 0.75 0.6-1.0 mg/dl Calcium L 8.0 8.4-10.2 mg/dl TP - Total Protein L 5.7 6.0-8.3 g/dl Albumin L 3.0 3.5-5 g/dl Bilirubin - Total 0.5 0.1-1.0 mg/dl AST 15 10-42 IU/L ALT 32 12-65 IU/L ALP 72 25-72 IU/L Lipase 86 73-393 U/L Osmolality 285.2 280-300 mOsm/L Albumin/Globulin Ratio 1.1 0-8 Anion GAP L 6.8 8-16 BUN/Creatinine Ratio 14.7 10-20 Estimated GFR 79 >=60 mL/min/1.7 [id number]:49:00 Result Normal Range Units Sodium 136 134-145 mEq/l Potassium 4.5 3.5-5.1 mEq/l Chloride 100 98-107 mEq/l CO2 22.9 22-28 mEq/l Glucose H 385 70-105 mg/dl BUN 16 7-18 mg/dl Creatinine 0.83 0.6-1.0 mg/dl Calcium 9.0 8.4-10.2 mg/dl TP - Total Protein 6.5 6.0-8.3 g/dl Albumin 3.8 3.5-5 g/dl Bilirubin - Total 0.7 0.1-1.0 mg/dl AST 17 10-42 IU/L ALT 42 12-65 IU/L ALP H 91 25-72 IU/L Lipase 114 73-393 U/L Osmolality 289.1 280-300 mOsm/L Albumin/Globulin Ratio 1.4 0-8 Anion GAP 13.1 8-16 BUN/Creatinine Ratio 19.3 10-20 Estimated GFR 71 >=60 mL/min/1.7 Hematology :55:00 Result Normal Range Units WBC 5.3 4.8-10.8 103/uL RBC 4.8 4.2-5.4 106/uL HGB 13.4 12.0-16.0 g/dl HCT 39.6 36.9-47.0 % MCV 83.2 81-99 FL MCH 28.2 27-31 pg MCHC 33.8 33-37 g/dl RDW 13.0 11.5-15.5 % PLT 145 130-400 103/uL MPV H 11.8 7.3-10.4 FL [id number]:40:00 Result Normal Range Units WBC L 4.7 4.8-10.8 103/uL RBC 4.4 4.2-5.4 106/uL HGB 12.7 12.0-16.0 g/dl HCT 37.1 36.9-47.0 % MCV 83.6 81-99 FL MCH 28.6 27-31 pg MCHC 34.2 33-37 g/dl RDW 12.9 11.5-15.5 % PLT 130 130-400 103/uL MPV H 12.1 7.3-10.4 FL Neutro % 63.4 40-70 % Lymph % 22.1 20-40 % [place] % 9.2 0-10.0 % Eos % 3.6 0-7.0 % Baso % 1.3 0-2 % Neutro # 3.0 1.5-7.5 103/uL Lymph # 1.0 0.9-4.0 103/uL [place] # 0.4 0-0.8 103/uL Eos # 0.2 0-0.6 103/uL Baso # 0.1 0-0.1 103/uL [id number]:50:00 Result Normal Range Units WBC 5.0 4.8-10.8 103/uL RBC 4.7 4.2-5.4 106/uL HGB 13.2 12.0-16.0 g/dl HCT 39.5 36.9-47.0 % MCV 83.7 81-99 FL MCH 28.0 27-31 pg MCHC 33.4 33-37 g/dl RDW 12.8 11.5-15.5 % PLT L 120 130-400 103/uL MPV H 11.8 7.3-10.4 FL Segs 57.0 40-70 % Bands 1.0 0-5 % Lymphs 22.0 20-40 % [place] H 14.0 0-10 % Eos 5.0 0-7 % Atypical Lymphs 1.0 0-5 % [id number]:35:00 Result Normal Range Units WBC 5.5 4.8-10.8 103/uL RBC 4.7 4.2-5.4 106/uL HGB 13.4 12.0-16.0 g/dl HCT 39.1 36.9-47.0 % MCV 82.5 81-99 FL MCH 28.3 27-31 pg MCHC 34.3 33-37 g/dl RDW 13.4 11.5-15.5 % PLT L 127 130-400 103/uL MPV H 12.0 7.3-10.4 FL Neutro % 68.5 40-70 % Lymph % L 15.0 20-40 % [place] % H 10.8 0-10.0 % Eos % 4.2 0-7.0 % Baso % 1.5 0-2 % Neutro # 3.8 1.5-7.5 103/uL Lymph # L 0.8 0.9-4.0 103/uL [place] # 0.6 0-0.8 103/uL Eos # 0.2 0-0.6 103/uL Baso # 0.1 0-0.1 103/uL Segs 65.0 40-70 % Lymphs 23.0 20-40 % [place] 8.0 0-10 % Baso H 4.0 0-2 % :30:00 Result Normal Range Units WBC 5.3 4.8-10.8 103/uL RBC 4.8 4.2-5.4 106/uL HGB 13.7 12.0-16.0 g/dl HCT 40.4 36.9-47.0 % MCV 83.5 81-99 FL MCH 28.3 27-31 pg MCHC 33.9 33-37 g/dl RDW 12.9 11.5-15.5 % PLT 131 130-400 103/uL MPV H 12.2 7.3-10.4 FL Segs H 72.0 40-70 % Lymphs L 17.0 20-40 % [place] 7.0 0-10 % Eos 3.0 0-7 % Baso 1.0 0-2 % :15:00 Result Normal Range Units WBC 6.5 4.8-10.8 103/uL RBC H 5.5 4.2-5.4 106/uL HGB 15.4 12.0-16.0 g/dl HCT 44.7 36.9-47.0 % MCV 81.7 81-99 FL MCH 28.2 27-31 pg MCHC 34.5 33-37 g/dl RDW 13.6 11.5-15.5 % PLT L 121 130-400 103/uL MPV H 12.4 7.3-10.4 FL Segs H 73.0 40-70 % Lymphs 20.0 20-40 % [place] 6.0 0-10 % Eos 1.0 0-7 % :00:00 Result Normal Range Units WBC 5.8 4.8-10.8 103/uL RBC 4.8 4.2-5.4 106/uL HGB 13.4 12.0-16.0 g/dl HCT 39.7 36.9-47.0 % MCV 82.4 81-99 FL MCH 27.8 27-31 pg MCHC 33.8 33-37 g/dl RDW 13.2 11.5-15.5 % PLT 146 130-400 103/uL MPV H 11.9 7.3-10.4 FL Neutro % 68.2 40-70 % Lymph % L 19.6 20-40 % [place] % 7.4 0-10.0 % Eos % 2.4 0-7.0 % Baso % 1.4 0-2 % Neutro # 4.0 1.5-7.5 103/uL Lymph # 1.1 0.9-4.0 103/uL [place] # 0.4 0-0.8 103/uL Eos # 0.1 0-0.6 103/uL Baso # 0.1 0-0.1 103/uL :49:00 Result Normal Range Units WBC 10.1 4.8-10.8 103/uL RBC H 5.5 4.2-5.4 106/uL HGB 15.4 12.0-16.0 g/dl HCT 44.3 36.9-47.0 % MCV 81.0 81-99 FL MCH 28.2 27-31 pg MCHC 34.8 33-37 g/dl RDW 13.0 11.5-15.5 % PLT 154 130-400 103/uL MPV H 11.8 7.3-10.4 FL Neutro % H 85.5 40-70 % Lymph % L 8.0 20-40 % [place] % 4.3 0-10.0 % Eos % 0.8 0-7.0 % Baso % 1.1 0-2 % Neutro # H 8.7 1.5-7.5 103/uL Lymph # L 0.8 0.9-4.0 103/uL [place] # 0.4 0-0.8 103/uL Eos # 0.1 0-0.6 103/uL Baso # 0.1 0-0.1 103/uL Special Chemistry [id number]:15:00 Result Normal Range Units Hemoglobin A1C H 10.6 4.5-6.2 % Body Fluid :30:00 Result Normal Range Units pH 5.0 4.5-8.0 Cardiac :49:00 Result Normal Range Units Troponin I 0.02 0.0-0.4 ng/ml Patient samples may contain heterophilic [...] should be interpreted with caution. Radiology Results [id number]:01:00 Abdomen 2 View PACs Image DATE OF EXAM: 2015 RAD 0037-ABDOMEN 2 VIEW : RADIOLOGY REPORT DATE OF SERVICE: 01/31/16 HISTORY: Abdominal pain ABDOMEN 2 [id number] HOURS There is some contrast material in the right colon from the prior CT study. There is moderate gaseous dilatation throughout the large bowel. There are no air fluid levels. There are no pathological calcifications. IMPRESSION: Mild nonspecific gaseous prominence of the colon. No acute abnormality. MD TANNER Ellis/lisha01/31/2016 15:31: / 01/31/2016 15:35:12 cc:Em Piña PA-C This document has been electronically Signed by: On: DATE OF EXAM: 2015 RAD 0037-ABDOMEN 2 VIEW : RADIOLOGY REPORT DATE OF SERVICE: 01/31/16 HISTORY: Abdominal pain ABDOMEN 2 [id number] HOURS There is some contrast material in the right colon from the prior CT study. There is moderate gaseous dilatation throughout the large bowel. There are no air fluid levels. There are no pathological calcifications. IMPRESSION: Mild nonspecific gaseous prominence of the colon. No acute abnormality. MD TANNER Ellis/lisha01/31/2016 15:31: / 01/31/2016 15:35:12 cc:Em Piña PA-C This document has been electronically Signed by: JOSIAH THORPE MD On: Feb 04 2016 12:01P ADM PAIN GASTRITIS Result Amended on 2016-02-04 at 12:01:35. Previous status was NE. ADM PAIN GASTRITIS [id number]:01:00 Abdomen 2 View PACs Image DATE OF EXAM: Feb 03 2016 RAD 0037-ABDOMEN 2 VIEW : RADIOLOGY REPORT DATE OF SERVICE: 02/03/16 HISTORY: Constipation, gastritis, abdominal pain. ABDOMEN 2 VIEWS 0615 HOURS Residual contrast within the colon is noted. No free air is identified on the upright film. Gas and stool through the colon extend to the rectum. Reactive pattern is not significant. Distended urinary bladder is mild. Compared to the prior study dated 01/31/2016 a decrease in gas is noted. IMPRESSION: 1. No active or acute abdominal pathology. 2. Mild constipation with residual contrast within bowel. Rafat Sanchez DO /tn 02/03/2016 08:24:00 / 02/03/2016 09:19:22 cc:Em Piña PA-C This document has been electronically Signed by: On: DATE OF EXAM: Feb 03 2016 RAD 0037-ABDOMEN 2 VIEW : RADIOLOGY REPORT DATE OF SERVICE: 02/03/16 HISTORY: Constipation, gastritis, abdominal pain. ABDOMEN 2 VIEWS 0615 HOURS Residual contrast within the colon is noted. No free air is identified on the upright film. Gas and stool through the colon extend to the rectum. Reactive pattern is not significant. Distended urinary bladder is mild. Compared to the prior study dated 01/31/2016 a decrease in gas is noted. IMPRESSION: 1. No active or acute abdominal pathology. 2. Mild constipation with residual contrast within bowel. Rafat Sanchez DO /tn 02/03/2016 08:24:00 / 02/03/2016 09:19:22 cc:Em Piña PA-C This document has been electronically Signed by: RAFAT SANCHEZ DO On: Feb 03 2016 11:01A ADM PAIN GASTRITIS Result Amended on 2016-02-03 at 11:01:11. Previous status was NE. ADM PAIN GASTRITIS [id number]:55:00 Result Normal Range Units MPV H 11.8 7.3-10.4 FL :40:00 Result Normal Range Units MPV H 12.1 7.3-10.4 FL [id number]:50:00 Result Normal Range Units MPV H 11.8 7.3-10.4 FL [id number]:35:00 Result Normal Range Units MPV H 12.0 7.3-10.4 FL :30:00 Result Normal Range Units MPV H 12.2 7.3-10.4 FL :15:00 Result Normal Range Units MPV H 12.4 7.3-10.4 FL [id number]:42:00 CT ABD/PEL W CONTRAST PACs Image DATE OF EXAM: 2015 [id number] ABD/PELV W CONTRAST : RADIOLOGY REPORT DATE OF SERVICE: 01/27/16 HISTORY: Abdominal pain in mid abdominal region for [address] ABDOMEN AND PELVIS WITH CONTRAST 0910 HOURS Axial scans were obtained at 5 mm intervals following administration of oral and intravenous contrast. 100 mL Isovue-300 was utilized for enhancement. Comparison is made with the prior study dated 01/17/2015. Again noted is a large fat and soft tissue containing left suprarenal mass consistent with adrenal myelolipoma. This measures 11.7 cm AP and 11.7 cm transverse and 11.6 cm cephalocaudal showing minimal further enlargement since the prior study. This causes mild caudal displacement of the left kidney. The liver, spleen, pancreas, and kidneys are otherwise normal. The right adrenal gland is unremarkable. There is no adenopathy. There is a small accessory splenule at the anterior border of the spleen. The aorta maintains normal caliber with minimal atherosclerotic calcification. There are no pelvic masses or ascites. The bladder is normal. The gallbladder is surgically absent. IMPRESSION: Slight further enlargement of large fat containing left adrenal gland mass consistent with myelolipoma. No other significant abdominal or pelvic abnormality. Josiah Thorpe MD MWD/tn01/27/2016 10:10:00 / 01/27/2016 10:32:42 cc:Em Piña PA-C This document has been electronically Signed by: On: DATE OF EXAM: 2015 [id number] ABD/PELV W CONTRAST : RADIOLOGY REPORT DATE OF SERVICE: 01/27/16 HISTORY: Abdominal pain in mid abdominal region for [address] ABDOMEN AND PELVIS WITH CONTRAST 0910 HOURS Axial scans were obtained at 5 mm intervals following administration of oral and intravenous contrast. 100 mL Isovue-300 was utilized for enhancement. Comparison is made with the prior study dated 01/17/2015. Again noted is a large fat and soft tissue containing left suprarenal mass consistent with adrenal myelolipoma. This measures 11.7 cm AP and 11.7 cm transverse and 11.6 cm cephalocaudal showing minimal further enlargement since the prior study. This causes mild caudal displacement of the left kidney. The liver, spleen, pancreas, and kidneys are otherwise normal. The right adrenal gland is unremarkable. There is no adenopathy. There is a small accessory splenule at the anterior border of the spleen. The aorta maintains normal caliber with minimal atherosclerotic calcification. There are no pelvic masses or ascites. The bladder is normal. The gallbladder is surgically absent. IMPRESSION: Slight further enlargement of large fat containing left adrenal gland mass consistent with myelolipoma. No other significant abdominal or pelvic abnormality. MD TANNER Ellis/nh01/27/2016 10:10:00 / 01/27/2016 10:32:42 cc:Em Piña PA-C This document has been electronically Signed by: JOSIAH THORPE MD On: 20151:42P ADM PAIN Result Amended on 2016-01-27 at 13:42:47. Previous status was NE. ADM PAIN [id number]:07:00 Abdomen 2 View PACs Image DATE OF EXAM: 2015 RAD 0037-ABDOMEN 2 VIEW : RADIOLOGY REPORT DATE OF SERVICE: 01/26/16 HISTORY:Epigastric abdominal pain. ABDOMEN 2 VIEWS 1335 HOURS The bowel gas pattern is normal.There is no obstruction or ileus. There is no free air.Surgical clips are noted in the right upper quadrant.There are no renal calculi. IMPRESSION:Negative abdomen. MD TANNER Ellis/pb01/26/2016 21:30:01/26/2016 23:32:09 cc:Em Piña PA-C This document has been electronically Signed by: On: DATE OF EXAM: 2015 RAD 0037-ABDOMEN 2 VIEW : RADIOLOGY REPORT DATE OF SERVICE: 01/26/16 HISTORY:Epigastric abdominal pain. ABDOMEN 2 VIEWS 1335 HOURS The bowel gas pattern is normal.There is no obstruction or ileus. There is no free air.Surgical clips are noted in the right upper quadrant.There are no renal calculi. IMPRESSION:Negative abdomen. MD TANNER Ellis/jeff01/26/2016 21:30:00 01/26/2016 23:32:09 cc:Em Piña PA-C This document has been electronically Signed by: JOSIAH THORPE MD On: 2015 11:07A ADM PAIN Result Amended on 2016-01-27 at 11:07:30. Previous status was NE. ADM PAIN [id number]:00:00 Result Normal Range Units MPV H 11.9 7.3-10.4 FL [id number]:49:00 Result Normal Range Units MPV H 11.8 7.3-10.4 FL History of procedures No procedures recorded for this patient visit. Functional status Functional Status Finding Observation Time Hearing Prob Loc none :38 Vision Problems yes :38 Vision Correct Dev glasses :38 Ambulation Asst Dev cane :38 Range of Motion full :54 Muscle Strength RUE 5 ROM full resist :54 Muscle Strength RLE 5 ROM full resist :54 Muscle Strength LUE 5 ROM full resist :54 Muscle Strength LLE 5 ROM full resist :54 Transfers assist x 1 :54 Ambulation in room :54 Balance unsteady :54 Bathing Assistance minimal :38 Eating Assistance minimal :38 Dressing Assistance minimal :38 Toileting Assistance minimal :38 Transfer Assistance moderate :38 Decline Slf Care/Mob no :38 Phys Cond Stable yes :38 Nutrition normal :54 Diet ADA specify calorie Comment: 1800 :54 Oral Cavity moist and intact :54 Teeth missing (specify) Comment: several :54 Dental Hygiene good 45-46-726406:54 Abdomen Appearance obese :54 Abdomen tender 28-50-637637:54 Bowel Sounds present 14-83-752610:54 NG Tube no :54 Feeding Tube none :54 Pinto no :54 Cont Bladder Irr no :54 Ostomy no :54 Stool normal Comment: last bm was 02/02/16 83-65-033536:54 Color normal :02 Consistency loose :02 Urination normal :54 Urine Clarity clear :05 Urine Color yellow :05 Quality sym/unlabored :54 Cough absent :54 Secretions no :54 Breath Sounds RUL clear :54 Breath Sounds RML clear :54 Breath Sounds RLL diminished :54 Breath Sounds LARISA clear :54 Breath Sounds LLL diminished :54 Airway natural :54 Chest Tube no :54 Oxygen no :00 Oxygen Mask Type nasal cannula :00 Oxygen Flow Rate ra :00 C-PAP no :54 BI-PAP no :54 New Infection Comment: no dx infection :38 Temp >100.4 no :54 Temp <96.8 no :54 Chills with rigors no :54 HR > 90bpm no :54 Respirations > 20 no :54 Systolic <90 no :54 headache stiff neck no :54 WBC > 97368 no :54 WBC < 4000 no :54 IV Site Location LFA :00 IV Type peripheral :00 IV Site Information discontinued :00 IV Site Start Attmpt 2 times 70-72-785042:57 IV Site Michael 22 11-61-392706:55 IV Site Appearance WNL 97-83-890566:55 IV Site Color clear :55 IV Site Patent yes :55 Dressing Changed yes :57 Dressing Type occlusive :55 Nursing Note discharge instructions given ,patient stable upon discharge, patient understood, all instructions. :05 Cognitive Status Finding Observation Time Oriented To Date 5 Yes :[address] 5 Yes :38 Name 3 Objects 3 Yes :38 Name Object in Rm 2 Yes :38 Recall 3 Objects 3 Yes :38 Repeats a Phrase 1 Yes :38 Follows Verbal Direc 3 Yes :38 Follows Written Dire 1 Yes :38 Write a Sentance 1 Yes :38 Draw an Object 1 Yes :38 Mini Mental Total 25 points :38 Less than 20 Phys not applicable :38 Learning Ability comprehends well :56 Neurological no :56 Psychological no :56 Physical no :56 Hearing no :56 Sqe Needed no :56 Sign Language no :56 Emotional yes :56 Vision yes :56 Laguage no :56 Financial no :56 Vital signs Type Value Date Respiration Rate 20breaths per minute :00 Pulse 68beats per minute :00 Oxygen Saturation 97% :00 BP Systolic 163mmHg :00 BP Diastolic 68mmHg :00 Temperature 98.9F :00 Height 67.5inches :35 Weight 293.7LB :35 Social history Type Value Smoking Status FORMER SMOKER Treatment Plan No treatment plan text is available for this visit. Hospital discharge instructions Discharge Date/Time 02/04/16 Accompanied By maddison Relationship friend Dismissal Condition fair Disposition on DC home Valuables yes Valuable Type other (specify) Comment: clothes Valuables Returned T patient DC Inst/Educ Give yes Exit Care Educ Given yes Med/Side Effects Rev yes DC Med Rec Rev yes Immun Indicated no PNE Vac 2015 Vaccines Ord Given no Flu Vac 2014 Tetanus Vac 2011 Medical Equipment yes Comment: cane Diet Explained yes Follow up appt already scheduled Follow Up Appt D/T 02/12/16 1:30 pm Comment: with
--- OUTSIDE RECORDS SUMMARY | 2018-10-10 10:12 | XMS REPORT ---
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
--- OUTSIDE RECORDS SUMMARY | 2018-10-10 10:12 | XMS REPORT ---
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 Comparison is made with the previous study dated 06/03/2015. There is very minimal focal plaquing in the carotid bulbs bilaterally. The common carotid arteries and internal carotid arteries are widely patent and show normal flow speed and normal spectral analysis. There is no ulcerated plaque. There is antegrade vertebral artery flow bilaterally. Peak speed in the DANIELA is 72 cm/sec with ICA/CCA ratio of 0.8. Peak speed in the LICA is 71 cm/sec with ICA/CCA ratio of 0.7. IMPRESSION: Minimal bilateral carotid bulb plaque with no measurable carotid stenosis. Antegrade vertebral artery flow bilaterally. MD TANNER Ellis/id01/17/2016 11:42:00 01/17/2016 12:01:43 cc:Em Piña PA-C This document has been electronically Signed by: On: DATE OF EXAM: Jan 17 2016 [id number] CAROTID DUPLEX SONO : RADIOLOGY REPORT DATE OF SERVICE: 01/17/16 HISTORY: Tinnitus, history of TIA, hyperlipidemia, and hypertension CAROTID AND VERTEBRAL DOPPLER 1130 HOURS The carotid and vertebral arteries were evaluated with high resolution real time imaging, pulsed and color flow Doppler. Comparison is made with the previous study dated 06/03/2015. There is very minimal focal plaquing in the carotid bulbs bilaterally. The common carotid arteries and internal carotid arteries are widely patent and show normal flow speed and normal spectral analysis. There is no ulcerated plaque. There is antegrade vertebral artery flow bilaterally. Peak speed in the DANIELA is 72 cm/sec with ICA/CCA ratio of 0.8. Peak speed in the LICA is 71 cm/sec with ICA/CCA ratio of 0.7. IMPRESSION: Minimal bilateral carotid bulb plaque with no measurable carotid stenosis. Antegrade vertebral artery flow bilaterally. Dipesh Thorpe MD MWLane/id01/17/2016 11:42:00 / 01/17/2016 12:01:43 cc:Em Piña PA-C This document has been electronically Signed by: DIPESH THORPE MD On: Jan 17 20162:15P Result Amended on 2016-01-17 at 14:15:20. Previous status was [place]. History of procedures No procedures recorded for [...]
--- OUTSIDE RECORDS SUMMARY | 2018-10-10 10:12 | XMS REPORT ---
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 Name Role Phone SANDRA TORRES MD PP [phone] Summary purpose TRANSITION OF CARE AUTO GENERATION Chief Complaint and Reason for Visit Admit Diagnosis 1 SPINAL CORD DISEASE NOS Problem list No authorized problems tracked for [...] Reason Product Series # Effectiveness / Reaction Bond Analyst Lot / Expiration Given 01-18-2015 PNEUMOCOCCAL 23-SHARON P-SAC VAC 1 MERCK,SHARP,[facility] [id number] / 12-20-2015 Relevant diagnostic tests and/or laboratory data RESULTS Radiology Results [id number]:02:00 MRI C-SPINE W/O CONT PACs Image DATE OF EXAM: Feb 15 2015 MRI 0218-MRI C SPINE WO CONTRAST : RADIOLOGY REPORT DATE OF SERVICE: 02/15/15 HISTORY: Myelopathy, evaluate for spinal stenosis and cord compression MAGNETIC RESONANCE IMAGING CERVICAL [id number] HOURS Imaging was performed in the sagittal [...] compression at this level. Dipesh Thorpe MD MWLane/oh02/15/2015 11:20:00 / 02/15/2015 11:27:06 cc:Dr. [place] This document has been electronically Signed by: On: DATE OF EXAM: Feb 15 2015 MRI 0218-MRI C SPINE WO CONTRAST : RADIOLOGY REPORT DATE OF SERVICE: 02/15/15 HISTORY: Myelopathy, evaluate for spinal stenosis and cord compression MAGNETIC RESONANCE IMAGING CERVICAL [id number] HOURS Imaging was performed in the sagittal [...] compression at this level. Dipesh Thorpe MD MWD/nh02/15/2015 11:20:00 / 02/15/2015 11:27:06 cc:Dr. [place] Schafer This document has been electronically Signed by: DIPESH THORPE On: Feb 15:02P Result Amended on 2015-02-15 at 13:03:05. Previous status was [place]. History of procedures Procedure Code Code Type Description Date Performed Performing Physician 29956 CPT-4 MRI NECK SPINE W/O DYE 02-15-2015 SOUTH SCHAFER Functional status No functional or cognitive [...]
--- OUTSIDE RECORDS SUMMARY | 2018-10-10 10:12 | XMS REPORT ---
Author Author [facility] Medical Staff Organization [facility] Address [address] [phone] Phone [phone] Care Team Providers Care Custom Furrier Name Role Phone CHRISTIANO BOSWELL PP [phone] Summary purpose TRANSITION OF CARE AUTO GENERATION [...] Reason Product Series # Effectiveness / Reaction Warehouser Lot / Expiration Given 01-18-2015 PNEUMOCOCCAL 23-SHARON P-SAC VAC 1 MERCK,SHARP,LYDIA [id number] / 12-20-2015 Relevant diagnostic tests and/or laboratory [...]
--- OUTSIDE RECORDS SUMMARY | 2018-10-10 10:13 | XMS REPORT ---
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 Encounters The following conditions tracked for encounter diagnoses were recorded for this visit: Finding or Diagnosis Status Certainty Chronicity Onset *CHEST PAIN Active Medications Discharge Medications Status Medication Directions Current Amy-[place] Plus Cold 325 mg-2 mg-20 mg effervescent tablet 1 tablet Oral PRN Current alprazolam 0.25 mg tablet 1 tablet Oral PRN 3 Times A Day Current Aspirin Low Dose 81 mg tablet,delayed release 1 tablet Oral 1 Daily Current ckqzoqr-khocvmqss-zjrttw-zinc tablet 1000 mg Oral 1 Daily Current Celexa 40 mg tablet 0.5 tablet Oral 1 Daily Current Cymbalta 30 mg capsule,delayed release 1 capsule Oral 1 Daily Current Fish Oil 500 mg capsule 500 mg Oral 1 Daily Current folic acid 1 mg tablet 1 tablet Oral 1 Daily Current ibuprofen 600 mg tablet 600 mg Oral 3 Times Daily for pain Current lisinopril 5 mg tablet 1 tablet Oral 1 Daily Current Lyrica 50 mg capsule 1 capsule Oral 3 Times Daily Current metformin oral 850 mg Oral 2 Times Daily Current Miralax 17 gram oral powder packet 17 gm Oral 1 Daily Current Mucinex 600 mg tablet, extended release 1 tablet Oral 2 Times Daily Current multivitamin tablet 1 tablet Oral 1 Daily Current nitroglycerin (NITROQUICK): 0.4 MG SL As Needed for CHEST PAIN Current Novolog Flexpen 100 unit/mL subcutaneous 10 units SubQ Before Meals Current oxycodone 10 mg tablet 1 tablet Oral 4 Times Daily Current trazodone 100 mg tablet 200 mg Oral At Bed Time Current Xanax 0.25 mg tablet 0.25 mg Oral 3 Times Daily Allergies, adverse reactions, alerts Allergen Category Ingredient Status Reaction Severity Onset No Known Drug Allergy No known drug allergies No known drug allergies Confirmed or Verified Immunizations Status Date Not Given Reason Product Series # Effectiveness / Reaction 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 Given 01-18-2015 PNEUMOCOCCAL 23-SHARON P-SAC VAC 1 [facility] [id number] / 12-20-2015 Relevant diagnostic tests and/or laboratory data RESULTS Chemistry [id number]:43:00 Result Normal Range Units Sodium 137 134-145 [...] Estimated GFR L 58 >=60 mL/min/1.7 Hematology [id number]:43:00 Result Normal Range Units WBC 7.1 4.8-10.8 103/uL RBC 5.4 4.2-5.4 106/uL HGB 14.6 12.0-16.0 g/dl HCT 41.3 36.9-47.0 % MCV L 77.1 81-99 FL MCH 27.2 27-31 pg MCHC 35.4 33-37 g/dl RDW 13.9 11.5-15.5 % PLT 160 130-400 103/uL MPV H 11.8 7.3-10.4 FL Neutro % H 74.4 40-70 % Lymph % L 14.4 20-40 % Cedar % 8.1 0-10.0 % Eos % 1.8 0-7.0 % Baso % 1.3 0-2 % Neutro # 5.3 1.5-7.5 103/uL Lymph # 1.0 0.9-4.0 103/uL Cedar # 0.6 0-0.8 103/uL Eos # 0.1 0-0.6 103/uL Baso # 0.1 0-0.1 103/uL Reference Lab ([facility]out) :43:00 Result Normal Range Units D-Dimer H 504 0-400 ng/ml Cardiac :00:00 Result Normal Range Units Troponin I < [...] this apparently has cleared. Vanessa Ignacio DO /ia 02/06/2015 13:03:00 / 02/06/2015 13:11:30 cc:Dr. Sandra [...] this apparently has cleared. Vanessa Ignacio DO /ia 02/06/2015 13:03:00 / 02/06/2015 13:11:30 cc:Dr. Sandra Torres This document has been electronically Signed by: VANESSA IGNACIO DO On: Feb 06 36448:27P CHEST PAIN RULE OUT [place] Result Amended on 2015-02-06 at 13:27:34. Previous status was [place]. CHEST PAIN RULE OUT [place] [id number]:43:00 Result Normal Range Units MPV H 11.8 7.3-10.4 FL History of procedures No procedures recorded for this patient visit. Functional status Functional Status Finding Observation Time Hearing Prob Loc none [id number] Vision Problems yes :48 Vision Correct Dev glasses [id number] Ambulation Asst Dev none [id number] Range of Motion full :28 Muscle Strength [...] Phys Cond Stable yes :48 Nutrition normal : Diet heart healthy : Oral Cavity moist :28 Teeth missing (specify) :28 Dental Hygiene good :28 Abdomen Appearance obese : Abdomen soft : Bowel Sounds present : NG Tube no :28 Feeding Tube none :28 [place] no :28 Ostomy no :28 Stool normal : Urination normal :28 Quality sym/unlabored : Cough absent :28 Secretions no : Breath Sounds RUL clear :28 Breath Sounds RML clear :28 Breath Sounds RLL clear :28 Breath Sounds LARISA clear :28 Breath Sounds LLL clear :28 Airway natural : Chest Tube no : Oxygen no :28 Oxygen Flow Rate RA [id number] C-PAP no :28 BI-PAP no :28 Temp >100.4 no : Temp <96.8 no : Chills with rigors no : HR > 90bpm no : Respirations > 20 no : Systolic <90 no : headache stiff neck no :28 WBC > 46178 no : WBC < 4000 no :28 Rapid Resp no :28 IV Site Location Rt FA :15 IV Type peripheral :15 IV Site Information discontinued : IV Site Start Attmpt 3 times :58 IV Site Michael 22 :28 IV Site Appearance WNL :28 IV Site Color clear :28 IV Site Patent yes :28 Dressing Changed [...] :06 Physical no :06 Hearing no :06 Yard Clerk Needed no :06 Sign Language no :06 Emotional yes :06 Vision yes :06 Laguage no :06 Financial no :06 Vital signs Type Value Date Respiration Rate 18breaths per minute [id number]:00 Pulse 68beats per minute :00 Oxygen Saturation 94% :00 BP Systolic 120mmHg :00 BP Diastolic 62mmHg :00 Temperature 97.8F 77-71-418708:00 Height 67.5inches 75-10-757650:30 Weight 266LB 85-47-053664:30 Social history Type Value Smoking Status FORMER [...]
--- OUTSIDE RECORDS SUMMARY | 2018-10-10 10:13 | XMS REPORT ---
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 [id number] / 12-20-2015 Relevant diagnostic tests and/or laboratory data RESULTS Routine Urinalysis [id number]:26:00 Result Normal Range Units Color YELLOW Clarity Clear Specific [place] 1.010 1.003-1.035 pH 5.5 4.5-8.0 Glucose 3+ Bilirubin NEGATIVE Ketones NEGATIVE Protein NEGATIVE Urobilinogen 0.2 0-0.2 E.U./dL Nitrites NEGATIVE Blood NEGATIVE Leukocytes NEGATIVE WBCs No WBC's Seen RBCs No RBC's Seen. Squamous Epithelial Few Bacteria Rare Amount Yeast Occasional Chemistry [id number]:26:00 Result Normal Range Units Sodium 134 134-145 mEq/l Potassium 4.2 3.5-5.1 mEq/l Chloride 99 98-107 mEq/l CO2 25.4 22-28 mEq/l Glucose H@ 475 70-105 mg/dl Result successfully called to [facility] on 01/06/2016 at 18:17 by [email or web address] BUN H 19 7-18 mg/dl Creatinine H 1.03 0.6-1.0 mg/dl Calcium 8.7 8.4-10.2 mg/dl TP - Total Protein 6.8 6.0-8.3 g/dl Albumin 3.6 3.5-5 g/dl Bilirubin - Total 0.4 0.1-1.0 mg/dl AST 16 10-42 IU/L ALT 28 12-65 IU/L ALP H 77 25-72 IU/L Osmolality 291.4 280-300 mOsm/L Albumin/Globulin Ratio 1.1 0-8 Anion GAP 9.6 8-16 BUN/Creatinine Ratio 18.4 10-20 Estimated GFR L 55 >=60 mL/min/1.7 Hematology :26:00 Result Normal Range Units WBC 7.5 4.8-10.8 103/uL RBC 5.0 4.2-5.4 106/uL HGB 14.1 12.0-16.0 g/dl HCT 39.8 36.9-47.0 % MCV L 79.8 81-99 FL MCH 28.3 27-31 pg MCHC 35.4 33-37 g/dl RDW 13.7 11.5-15.5 % PLT 155 130-400 103/uL MPV H 12.2 7.3-10.4 FL Neutro % H 75.7 40-70 % Lymph % L 15.3 20-40 % Ray % 7.2 0-10.0 % Eos % 1.1 0-7.0 % Baso % 0.7 0-2 % Neutro # 5.7 1.5-7.5 103/uL Lymph # 1.1 0.9-4.0 103/uL Ray # 0.5 0-0.8 103/uL Eos # 0.1 0-0.6 103/uL Baso # 0.1 0-0.1 103/uL Special Chemistry :26:00 Result Normal Range Units Hemoglobin A1C H 12.4 4.5-6.2 % Body Fluid :26:00 Result Normal Range Units pH 5.5 4.5-8.0 Radiology Results :26:00 Result Normal Range Units MPV H 12.2 7.3-10.4 FL History of procedures No procedures [...]
--- OUTSIDE RECORDS SUMMARY | 2018-10-10 10:13 | XMS REPORT ---
Author Author [employer] [facility] Medical Staff Organization [facility] [employer] [facility] Address [address] [phone] Phone [phone] Summary purpose TRANSITION OF CARE AUTO GENERATION Chief Complaint and Reason for Visit Admit Diagnosis 1 SYNCOPE AND COLLAPSE Problem list No authorized problems tracked for [...] Reason Product Series # Effectiveness / Reaction Resident Care Aid Lot / Expiration Given 01-18-2015 PNEUMOCOCCAL 23-SHARON P-SAC VAC 1 [facility],[place] [id number] / 12-20-2015 Relevant diagnostic tests and/or laboratory data No authorized results are available for this patient visit History of procedures Procedure Code Code Type Description Date Performed Performing Physician 19185 CPT-4 EEG, AWAKE AND DROWSY 07-03-2015 MARGARITA PRATHER Functional status No functional or cognitive status [...]
--- OUTSIDE RECORDS SUMMARY | 2018-10-10 10:13 | XMS REPORT ---
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 Problem list No authorized problems tracked for continuity of care are available for this visit. Encounters The following conditions tracked for encounter diagnoses were recorded for this visit: Finding or Diagnosis Status Certainty Chronicity Onset *SYNCOPE Active *FRACTURE; Rib Active Medications No medications recorded for this patient visit Allergies, adverse reactions, alerts Allergen Category Ingredient Status Reaction Severity Onset No Known Drug Allergy No known drug allergies No known drug allergies Confirmed or Verified Immunizations Status Date Not Given Reason Product Series # Effectiveness / Reaction Medicaid Specialist Lot / Expiration Given 01-18-2015 PNEUMOCOCCAL 23-SHARON P-SAC VAC 1 MERCK,SHARP,LYDIA [id number] / 12-20-2015 Relevant diagnostic tests and/or laboratory data RESULTS Routine Urinalysis 68-14-674795:51:00 Result Normal Range Units Color YELLOW Clarity Clear Specific [place] 1.010 1.003-1.035 pH 5.5 4.5-8.0 Glucose 3+ Bilirubin NEGATIVE Ketones NEGATIVE Protein NEGATIVE Urobilinogen 0.2 0-0.2 E.U./dL Nitrites NEGATIVE Blood NEGATIVE Leukocytes 1+ WBCs 5-10 RBCs No RBC's Seen. Squamous Epithelial Few Bacteria Rare Amount Chemistry [id number]:45:00 Result Normal Range Units Sodium 138 134-145 mEq/l Potassium 4.2 3.5-5.1 mEq/l Chloride 105 98-107 mEq/l CO2 26.3 22-28 mEq/l Glucose H 231 70-105 mg/dl BUN 15 7-18 mg/dl Creatinine 0.81 0.6-1.0 mg/dl Calcium L 8.0 8.4-10.2 mg/dl Osmolality 283.9 280-300 mOsm/L Anion GAP L 6.7 8-16 BUN/Creatinine Ratio 18.5 10-20 Estimated GFR 73 >=60 mL/min/1.7 14-00-270312:55:00 Result Normal Range Units Sodium 136 134-145 mEq/l Potassium 4.0 3.5-5.1 mEq/l Chloride 100 98-107 mEq/l CO2 25.8 22-28 mEq/l Glucose H 313 70-105 mg/dl BUN H 22 7-18 mg/dl Creatinine 0.93 0.6-1.0 mg/dl Calcium 8.5 8.4-10.2 mg/dl Osmolality 287.2 280-300 mOsm/L Anion GAP 10.2 8-16 BUN/Creatinine Ratio H 23.7 10-20 Estimated GFR 62 >=60 mL/min/1.7 [id number]:00:00 Result Normal Range Units Sodium L 132 134-145 mEq/l Potassium 4.4 3.5-5.1 mEq/l Chloride L 95 98-107 mEq/l CO2 26.3 22-28 mEq/l Glucose H@ 471 70-105 mg/dl BUN H 27 7-18 mg/dl Creatinine H 1.13 0.6-1.0 mg/dl Calcium 9.1 8.4-10.2 mg/dl TP - Total Protein 6.8 6.0-8.3 g/dl Albumin 3.5 3.5-5 g/dl Bilirubin - Total 0.4 0.1-1.0 mg/dl AST 15 10-42 IU/L ALT 27 12-65 IU/L ALP H 85 25-72 IU/L Osmolality 290.3 280-300 mOsm/L Albumin/Globulin Ratio 1.1 0-8 Anion GAP 10.7 8-16 BUN/Creatinine Ratio H 23.9 10-20 Estimated GFR L 49 >=60 mL/min/1.7 Hematology :45:00 Result Normal Range Units WBC 6.3 4.8-10.8 103/uL RBC 4.5 4.2-5.4 106/uL HGB 12.6 12.0-16.0 g/dl HCT L 36.3 36.9-47.0 % MCV L 80.7 81-99 FL MCH 28.0 27-31 pg MCHC 34.7 33-37 g/dl RDW 12.3 11.5-15.5 % PLT 140 130-400 103/uL MPV H 12.3 7.3-10.4 FL Neutro % H 74.2 40-70 % Lymph % L 13.7 20-40 % [place] % 7.9 0-10.0 % Eos % 2.5 0-7.0 % Baso % 1.1 0-2 % Neutro # 4.7 1.5-7.5 103/uL Lymph # 0.9 0.9-4.0 103/uL [place] # 0.5 0-0.8 103/uL Eos # 0.2 0-0.6 103/uL Baso # 0.1 0-0.1 103/uL [id number]:55:00 Result Normal Range Units WBC 5.8 4.8-10.8 103/uL RBC 4.6 4.2-5.4 106/uL HGB 13.0 12.0-16.0 g/dl HCT L 36.7 36.9-47.0 % MCV L 79.8 81-99 FL MCH 28.3 27-31 pg MCHC 35.4 33-37 g/dl RDW 12.9 11.5-15.5 % PLT 139 130-400 103/uL MPV H 12.7 7.3-10.4 FL Segs H 75.0 40-70 % Bands 2.0 0-5 % Lymphs 21.0 20-40 % [place] 2.0 0-10 % [id number]:00:00 Result Normal Range Units WBC 8.8 4.8-10.8 103/uL RBC 4.8 4.2-5.4 106/uL HGB 13.6 12.0-16.0 g/dl HCT 38.4 36.9-47.0 % MCV L 79.8 81-99 FL MCH 28.3 27-31 pg MCHC 35.4 33-37 g/dl RDW 12.1 11.5-15.5 % PLT 145 130-400 103/uL MPV H 12.1 7.3-10.4 FL Body Fluid 32-12-493144:51:00 Result Normal Range Units pH 5.5 4.5-8.0 Cardiac [id number]:00:00 Result Normal Range Units CK 123 26-192 IU/L CKMB 2.3 0-3.6 ng/ml Patient samples may contain heterophilic [...] should be interpreted with caution. Radiology Results [id number]:18:00 CAROTID DUPLEX PACs Image DATE OF EXAM: Jun 03 2015 [id number] CAROTID DUPLEX SONO : RADIOLOGY REPORT DATE OF SERVICE: 06/03/15 HISTORY:Syncope, small vessel disease, old cerebrovascular accident. CAROTID AND VERTEBRAL ARTERY DOPPLER 1424 HOURS The carotid and vertebral arteries were evaluated with high-resolution real time imaging, pulsed and color flow Doppler. The common carotid arteries, carotid bulbs and internal carotid arteries show normal flow speed and spectral analysis.Peak speed in the proximal right internal carotid artery is 91 cm/sec, and peak speed in the left internal carotid artery is 87 cm/sec.Minimal plaque is present in the carotid bulbs. No ulcerated plaque is present. There is antegrade vertebral artery flow bilaterally. IMPRESSION:Minimal bilateral carotid bulb plaque with no measurable stenosis. Antegrade vertebral artery flow bilaterally. Dipesh Thorpe MD MWLane/pb06/03/2015 16:18:00 / 06/03/2015 19:51:33 cc:Dr. Sandra Torres This document has been electronically Signed by: On: DATE OF EXAM: Jun 03 2015 [id number] CAROTID DUPLEX SONO : RADIOLOGY REPORT DATE OF SERVICE: 06/03/15 HISTORY:Syncope, small vessel disease, old cerebrovascular accident. CAROTID AND VERTEBRAL ARTERY DOPPLER 1424 HOURS The carotid and vertebral arteries were evaluated with high-resolution real time imaging, pulsed and color flow Doppler. The common carotid arteries, carotid bulbs and internal carotid arteries show normal flow speed and spectral analysis.Peak speed in the proximal right internal carotid artery is 91 cm/sec, and peak speed in the left internal carotid artery is 87 cm/sec.Minimal plaque is present in the carotid bulbs. No ulcerated plaque is present. There is antegrade vertebral artery flow bilaterally. IMPRESSION:Minimal bilateral carotid bulb plaque with no measurable stenosis. Antegrade vertebral artery flow bilaterally. MD TANNER Ellis/pb06/03/2015 16:18:00 / 06/03/2015 19:51:33 cc:Dr. Sandra Torres This document has been electronically Signed by: DIPESH THORPE On: Jun 04 20158:18A Result Amended on 2015-06-04 at 08:18:29. Previous status was [place]. 61-00-882064:45:00 Result Normal Range Units MPV H 12.3 7.3-10.4 FL 07-27-088883:41:00 MRI BRAIN W/WO CONT PACs Image DATE OF EXAM: Jun 03 2015 MRI 0036-MRI BRAIN W/WO CONTRAST : RADIOLOGY REPORT DATE OF SERVICE: 06/03/15 HISTORY: Syncope, head injury, fall, abnormal CT scan with question of infarct. PRE AND POSTCONTRAST MAGNETIC RESONANCE IMAGING [id number] HOURS Axial, sagittal, and coronal scans were obtained. 15 mL Magnevist was administered for enhancement. There is no evidence of restricted diffusion to suggest acute infarct. There is a small chronic infarct in the high left parietal region near the cranial vertex corresponding with the abnormality seen on CT. Extensive white matter changes are evident with hyperintense FLAIR and T2 weighted signal scattered throughout the frontal and parietal white matter bilaterally. The ventricles are normal in size. There are no masses. There is no midline shift. There is no hemorrhage. There is no subdural or epidural hematoma. The cerebellum and brainstem are normal. Nerves VII and VIII complexes are normal. The bony calvarium is normal and intact. There is a normal pattern of intracranial contrast enhancement. IMPRESSION: 1. Small chronic left parietal infarct. 2. Extensive white matter abnormalities bilaterally most likely reflecting chronic microvascular ischemia. Primary demyelinating disease is not entirely excluded, but considered less likely. Lyme disease is also a possibility. 3. No acute intracranial abnormality. MD TANNER Ellis/ky06/03/2015 12:34:00 / 06/03/2015 12:47:56 cc:Dr. Sandra Torres This document has been electronically Signed by: On: DATE OF EXAM: Jun 03 2015 MRI 0036-MRI BRAIN W/WO CONTRAST : RADIOLOGY REPORT DATE OF SERVICE: 06/03/15 HISTORY: Syncope, head injury, fall, abnormal CT scan with question of infarct. PRE AND POSTCONTRAST MAGNETIC RESONANCE IMAGING [id number] HOURS Axial, sagittal, and coronal scans were obtained. 15 mL Magnevist was administered for enhancement. There is no evidence of restricted diffusion to suggest acute infarct. There is a small chronic infarct in the high left parietal region near the cranial vertex corresponding with the abnormality seen on CT. Extensive white matter changes are evident with hyperintense FLAIR and T2 weighted signal scattered throughout the frontal and parietal white matter bilaterally. The ventricles are normal in size. There are no masses. There is no midline shift. There is no hemorrhage. There is no subdural or epidural hematoma. The cerebellum and brainstem are normal. Nerves VII and VIII complexes are normal. The bony calvarium is normal and intact. There is a normal pattern of intracranial contrast enhancement. IMPRESSION: 1. Small chronic left parietal infarct. 2. Extensive white matter abnormalities bilaterally most likely reflecting chronic microvascular ischemia. Primary demyelinating disease is not entirely excluded, but considered less likely. Lyme disease is also a possibility. 3. No acute intracranial abnormality. Dipesh Thorpe MD [facility]06/03/2015 12:34:00 / 06/03/2015 12:47:56 cc:Dr. Sandra Torres This document has been electronically Signed by: DIPESH THORPE On: Jun 03 20153:41P Result Amended on 2015-06-03 at 15:41:54. Previous status was [place]. 30-04-233508:52:00 CT HEAD W/O CONT PACs Image DATE OF EXAM: 2014 [id number] HEAD WO CONTRAST : RADIOLOGY REPORT DATE OF SERVICE:06/02/15 HISTORY:Syncope, head injury, fall. NONCONTRAST CT HEAD:1640 HOURS Axial scans were obtained at 5 mm intervals. No contrast was administered. Ventricular size is normal. There is no mass or midline shift. There is no hemorrhage. There is an 11 mm lucency in the left superior parietal cortex and subcortical white matter. No other focal intracranial abnormalities are present. There is no subdural or epidural hematoma. The bony calvarium is intact. IMPRESSION:Small left parietal lobe lucency. A small infarct is possible, age indeterminate. Edema from other lesion such as a small mass cannot be entirely excluded. Followup MRI brain with and without contrast is recommended. MD TANNER Ellis/jt06/02/2015 17:37:00 / 06/02/2015 18:06:04 cc:Dr Torres This document has been electronically Signed by: On: DATE OF EXAM: 2014 [id number] HEAD WO CONTRAST : RADIOLOGY REPORT DATE OF SERVICE:06/02/15 HISTORY:Syncope, head injury, fall. NONCONTRAST CT HEAD:1640 HOURS Axial scans were obtained at 5 mm intervals. No contrast was administered. Ventricular size is normal. There is no mass or midline shift. There is no hemorrhage. There is an 11 mm lucency in the left superior parietal cortex and subcortical white matter. No other focal intracranial abnormalities are present. There is no subdural or epidural hematoma. The bony calvarium is intact. IMPRESSION:Small left parietal lobe lucency. A small infarct is possible, age indeterminate. Edema from other lesion such as a small mass cannot be entirely excluded. Followup MRI brain with and without contrast is recommended. MD TANNER Ellis/jt06/02/2015 17:37:06/02/2015 18:06:04 cc:Dr Torres This document has been electronically Signed by: DIPESH THORPE On: Jun 03 2015 11:52A Result Amended on 2015-06-03 at 11:52:13. Previous status was [place]. Chest X-Ray - 2 View PACs Image DATE OF EXAM: 2014 RAD 0300-CHEST XRAY 2 VIEW : RADIOLOGY REPORT DATE OF SERVICE: 06/02/15 HISTORY:Syncope, fall. CHEST 2 VIEWS 1443 HOURS The lungs are clear.Heart size and pulmonary vessels are normal. There are changes of prior sternotomy and coronary artery surgery. Degenerative changes are evident in the thoracic spine.There is no pneumothorax or pleural effusion. IMPRESSION:No acute chest abnormality. MD TANNER Ellis/pb06/02/2015 17:58:06/02/2015 21:24:06 cc:Dr. Sandra Torres This document has been electronically Signed by: On: DATE OF EXAM: 2014 RAD 0300-CHEST XRAY 2 VIEW : RADIOLOGY REPORT DATE OF SERVICE: 06/02/15 HISTORY:Syncope, fall. CHEST 2 VIEWS 1443 HOURS The lungs are clear.Heart size and pulmonary vessels are normal. There are changes of prior sternotomy and coronary artery surgery. Degenerative changes are evident in the thoracic spine.There is no pneumothorax or pleural effusion. IMPRESSION:No acute chest abnormality. MD TANNER Ellis/jeff06/02/2015 17:58:06/02/2015 21:24:06 cc:Dr. Sandra Torres This document has been electronically Signed by: DIPESH THORPE On: Jun 03 2015 11:52A Result Amended on 2015-06-03 at 11:52:22. Previous [place] was [place]. Elbow XRay - 3 View PACs Image DATE OF EXAM: 2014 RAD 0458-ELBOW XRAY-3 VIEW- LEFT: RADIOLOGY REPORT DATE OF SERVICE: 06/02/15 HISTORY:Syncope, fall with injury. LEFT ELBOW 3 VIEWS 1443 HOURS There is no fracture or dislocation.There is no joint effusion.The joint surfaces are smooth. IMPRESSION:Normal elbow. MD TANNER Ellis/jeff06/02/2015 17:59:00 / 06/02/2015 21:34:53 cc:Dr. Sandra Torres This document has been electronically Signed by: On: DATE OF EXAM: 2014 RAD 0458-ELBOW XRAY-3 VIEW- LEFT: RADIOLOGY REPORT DATE OF SERVICE: 06/02/15 HISTORY:Syncope, fall with injury. LEFT ELBOW 3 VIEWS 1443 HOURS There is no fracture or dislocation.There is no joint effusion.The joint surfaces are smooth. IMPRESSION:Normal elbow. MD TANNER Ellis/jeff06/02/2015 17:59:00 / 06/02/2015 21:34:53 cc:Dr. Sandra Torres This document has been electronically Signed by: DIPESH THORPE On: Jun 03 2015 11:52A Result Amended on 2015-06-03 at 11:52:28. Previous [place] was [place]. RIB XRAYS - UNILAT 3 VIEW PACs Image DATE OF EXAM: 2014 RAD 1308-RIB [id number] VIEW- LEFT: RADIOLOGY REPORT DATE OF SERVICE: 06/02/15 HISTORY:Fall with injury. LEFT RIBS 3 VIEWS 1443 HOURS There is probable nondisplaced fracture of the posterolateral left fourth rib seen only in the upper AP projection.The remaining osseous structures appear intact.There is no pneumothorax or pleural effusion. IMPRESSION:Probable nondisplaced left fourth rib fracture. MD TANNER Ellis/jeff06/02/2015 18:01:00 / 06/02/2015 21:56:03 cc:Dr. Sandra Torres This document has been electronically Signed by: On: DATE OF EXAM: 2014 RAD 1308-RIB [id number] VIEW- LEFT: RADIOLOGY REPORT DATE OF SERVICE: 06/02/15 HISTORY:Fall with injury. LEFT RIBS 3 VIEWS 1443 HOURS There is probable nondisplaced fracture of the posterolateral left fourth rib seen only in the upper AP projection.The remaining osseous structures appear intact.There is no pneumothorax or pleural effusion. IMPRESSION:Probable nondisplaced left fourth rib fracture. MD TANNER Ellis/jeff06/02/2015 18:01:00 / 06/02/2015 21:56:03 cc:Dr. Sandra Torres This document has been electronically Signed by: DIPESH THORPE On: Jun 03 2015 11:52A Result Amended on 2015-06-03 at 11:52:29. Previous status was [place]. 99-98-500352:55:00 Result Normal Range Units MPV H 12.7 7.3-10.4 FL 86-04-765859:00:00 Result Normal Range Units MPV H 12.1 7.3-10.4 FL History of procedures No procedures recorded for this patient visit. Functional status Functional Status Finding Observation Time Hearing Prob Loc none :19 Vision Problems yes :19 Vision Correct Dev glasses :19 Ambulation Asst Dev none :19 Range of Motion full :30 Muscle Strength RUE 5 ROM full resist :30 Muscle Strength RLE 5 ROM full resist :30 Muscle Strength LUE 5 ROM full resist :30 Muscle Strength LLE 5 ROM full resist :30 Transfers assist x 2 Comment: sba :30 Ambulation in room :30 Balance unsteady :30 Bathing Assistance minimal : Eating Assistance none : Dressing Assistance minimal : Toileting Assistance minimal : Transfer Assistance minimal : Decline Slf Care/Mob no :19 Phys Cond Stable yes : Nutrition normal :30 Diet ADA specify calorie :34 Oral Cavity moist :30 Teeth missing (specify) :30 Dental Hygiene good :30 Abdomen Appearance obese :30 Abdomen soft :30 Bowel Sounds present :30 NG Tube no :30 Feeding Tube none :30 Pinto no :30 Ostomy no :30 Stool Comment: none noted this shift yet : Urination normal :30 Urine Clarity clear :30 Urine Color yellow :30 Quality shallow : Cough absent :30 Secretions no :30 Breath Sounds RUL clear :30 Breath Sounds RML clear :30 Breath Sounds RLL clear :30 Breath Sounds LARISA clear :30 Breath Sounds LLL clear :30 Airway natural :30 Chest Tube no :30 Oxygen no :21 Oxygen Flow Rate RA :21 C-PAP no :30 BI-PAP no :30 Temp >100.4 no : Temp <96.8 no :30 Chills with rigors no : HR > 90bpm no : Respirations > 20 no : Systolic <90 no : headache stiff neck no : WBC > 29498 no : WBC < 4000 no : Rapid Resp no :30 IV Site Location Right outer FA : IV Type peripheral : IV Site Information discontinued : IV Site Start Attmpt 1 times :05 IV Site Michael 20 :00 IV Site Appearance WNL : IV Site Color clear : IV Site Patent yes : Dressing Changed yes : Dressing Type gauze : Nursing Note Discharge instructions given, verbalize understanding. Off Obs unit via WC c all belongings. DC to home in private vehicle c friend, Joelle. Fair condition. 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 Hospital discharge instructions Discharge Date/Time 06/04/15 1825 Accompanied By Joelle Relationship friend Dismissal Condition fair Disposition on DC home Valuables yes Valuable Type billfold/purse Valuables Returned T patient DC Inst/Educ Give yes Exit Care Educ Given yes Med/Side Effects Rev yes DC Med Rec Rev yes PNE Vac 01/18/2015 Flu Vac 10/06/2014 Tetanus Vac 2011 Diet Explained yes Follow up appt already scheduled Follow Up Appt D/T 06/07/15 203
--- OUTSIDE RECORDS SUMMARY | 2018-10-10 10:13 | XMS REPORT ---
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 Functional status Functional Status Finding Observation Time Hearing Prob Loc none :26 Vision Problems yes 23-41-834187:26 Vision Correct Dev glasses :26 Ambulation Asst Dev cane 32-12-975333:26 Range of Motion full :00 Muscle Strength RUE 5 ROM full resist 88-84-170686:00 Muscle Strength RLE 5 ROM full resist :00 Muscle Strength LUE 5 ROM full resist 79-39-633829:00 Muscle Strength LLE 5 ROM full resist 41-78-001377:00 Transfers assist x 1 31-76-377721:00 Ambulation in room 81-48-247456:00 Balance steady 15-91-879639:00 Bathing Assistance minimal 39-66-238705:26 Eating Assistance minimal : Dressing Assistance minimal :26 Toileting Assistance minimal 80-06-284686:26 Transfer Assistance moderate 53-32-090399: Decline Slf Care/Mob no 65-70-029419: Phys Cond Stable yes 02-47-954161:26 Nutrition normal 02-03-960040:00 Diet ADA specify calorie 11-95-366992: Oral Cavity moist and intact 38-16-127586: Teeth missing (specify) 87-57-228635:00 Dental Hygiene good 29-42-814683: Abdomen Appearance obese 10-40-329891:00 Abdomen non-tender 93-55-611974:00 Bowel Sounds present 22-94-751709: NG Tube no 57-05-810411:00 Feeding Tube none 76-62-431757:00 Pinto no 25-29-073443:00 Cont Bladder Irr no 46-61-629317:00 Ostomy no 14-51-290977:00 Stool normal 07-83-168512: Urination normal 59-33-097803:00 Quality sym/unlabored 39-46-346733:00 Cough absent 68-89-993822:00 Secretions no 12-48-679816:00 Breath Sounds RUL clear 13-49-511789:00 Breath Sounds RML clear 73-97-347136:00 Breath Sounds RLL clear 85-50-613067:00 Breath Sounds LARISA clear 47-85-302803:00 Breath Sounds LLL clear 30-65-515709:00 Airway natural 27-56-641117: Chest Tube no 53-81-747013:00 Oxygen no 25-71-736311:15 C-PAP no 32-10-679153:00 BI-PAP no 68-34-319542:00 Temp >100.4 no 20-78-494765:00 Temp <96.8 no 69-55-826542:00 Chills with rigors no 44-21-243846:00 HR > 90bpm no 88-50-738022:00 Respirations > 20 no 52-45-974450:00 Systolic <90 no 06-25-782596:00 headache stiff neck no 08-89-782459:00 IV Site Location right forearm 22-23-106110:25 IV Type peripheral :25 IV Site Information discontinued :25 IV Site Start Attmpt 2 times Comment: pt did not want Lidocaine :10 IV Site Michael 22 35-32-881763:25 IV Site Appearance WNL :25 IV Site Color clear : IV Site Patent yes :25 Dressing Type occlusive :25 Nursing Note pt dismissed from the unit in stable condition. personal belongings and dc paperwork in hand. friend to drive her home. :30 Cognitive Status Finding Observation Time Learning Ability comprehends well : Neurological no :25 Psychological no :25 Physical no :25 Hearing no :25 Cissp Needed no :25 Sign Language no : Emotional yes : Vision yes :25 Laguage no 62-45-812813:25 Financial no :25 Vital signs Type Value Date Respiration Rate 20breaths per minute : Pulse 75beats per minute :15 Oxygen Saturation 97% :15 BP Systolic 135mmHg :15 BP Diastolic 64mmHg 81-79-689273:15 Temperature 97.6F 19-07-401657:00 Height 67.5inches :24 Weight 290LB 45-67-115590:24 Social history Type Value Smoking Status FORMER SMOKER Treatment Plan No treatment plan text is available for this visit. Hospital discharge instructions Discharge Date/Time 02/19/16 1130 Accompanied By maddison Relationship friend Dismissal Condition fair Disposition on DC home Valuables yes Valuable Type other (specify) Comment: cane Valuables Returned T patient DC Inst/Educ Give yes Exit Care Educ Given yes PNE Vac 01/18/2015 Flu Vac 2014 Tetanus Vac 2011 Medical Equipment yes Diet Explained yes Follow up appt already scheduled Follow Up Appt D/T 02/19/16 6796
--- OUTSIDE RECORDS SUMMARY | 2018-10-10 10:14 | XMS REPORT ---
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
--- OUTSIDE RECORDS SUMMARY | 2018-10-10 10:14 | XMS REPORT ---
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 Squamous Epithelial Few Bacteria Rare Amount Yeast Occasional Routine Cultures [id number]:26:00 Urine Culture Plate Date and Time 01/06/2016 17:26 SourceURINE CULTURE REPORT No Growth After 24 Hours Release Date/Time: 01/07/2016 07:34 CULTURE REPORT 20,000 colonies/ml Mixed Gram Pos Courtney Release Date/Time: 01/08/2016 07:44 Chemistry [id number]:26:00 Result Normal Range Units Sodium 134 134-145 mEq/l Potassium 4.2 3.5-5.1 mEq/l Chloride 99 98-107 mEq/l CO2 25.4 22-28 mEq/l Glucose H@ 475 70-105 mg/dl Result successfully called to [facility] on 01/06/2016 at 18:17 by [email or web address].BRISA BUN [...] Estimated GFR L 55 >=60 mL/min/1.7 Hematology [id number]:26:00 Result Normal Range Units WBC 7.5 4.8-10.8 103/uL RBC 5.0 4.2-5.4 106/uL HGB 14.1 12.0-16.0 g/dl HCT 39.8 36.9-47.0 % MCV L 79.8 81-99 FL MCH 28.3 27-31 pg MCHC 35.4 33-37 g/dl RDW 13.7 11.5-15.5 % PLT 155 130-400 103/uL MPV H 12.2 7.3-10.4 FL Neutro % H 75.7 40-70 % Lymph % L 15.3 20-40 % Lucas % 7.2 0-10.0 % Eos % 1.1 0-7.0 % Baso % 0.7 0-2 % Neutro # 5.7 1.5-7.5 103/uL Lymph # 1.1 0.9-4.0 103/uL Lucas # 0.5 0-0.8 103/uL Eos # 0.1 0-0.6 103/uL Baso # 0.1 0-0.1 103/uL Special Chemistry [id number]:26:00 Result Normal Range Units Hemoglobin A1C H 12.4 4.5-6.2 % Body Fluid [id number]:26:00 Result Normal Range Units pH 5.5 4.5-8.0 Radiology Results [id number]:26:00 Result Normal Range Units MPV H 12.2 7.3-10.4 FL History of procedures Procedure Code Code Type Description Date Performed Performing Physician 52383 CPT-4 COMPREHEN METABOLIC PANEL 01-06-2016 CHRISTIANO CROUCH 39799 CPT-4 URINALYSIS, AUTO W/SCOPE 01-06-2016 CHRISTIANO CROUCH 29908 CPT-4 GLYCOSYLATED HEMOGLOBIN TEST 01-06-2016 CHRISTIANO CROUCH 21301 CPT-4 COMPLETE CBC W/AUTO DIFF WBC 01-06-2016 CHRISTIANO CROUCH 44341 CPT-4 URINE CULTURE/COLONY COUNT 01-06-2016 CHRISTIANO CROUCH Functional status No functional or cognitive [...]
--- OUTSIDE RECORDS SUMMARY | 2018-10-10 10:15 | XMS REPORT ---
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
--- OUTSIDE RECORDS SUMMARY | 2018-10-10 10:15 | XMS REPORT ---
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
--- OUTSIDE RECORDS SUMMARY | 2018-10-10 10:15 | XMS REPORT ---
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 Dipesh Thorpe MD Lane/nc2016 15:20:00 / 2016 15:37:10 cc:Em Piña PA-C This document has been electronically Signed by: On: DATE OF EXAM: 2016 [facility] 0845-BILAT SCREEN DIG MAMMO : [...] Negative mammograms BI-RADS II. Dipesh Thorpe MD MWD/nh2016 15:20:00 / 2016 15:37:10 cc:Em Piña PA-C This document has been electronically Signed by: DIPESH THORPE MD On: Mar 09 20164:19P Result Amended on 2016 at 16:19:54. Previous status was [place]. History of procedures No procedures recorded for [...]
--- OUTSIDE RECORDS SUMMARY | 2018-10-10 10:15 | XMS REPORT ---
Author [facility] Organization [facility] Address [address] [phone] Phone [phone] Care Team Providers Care Certified Lactation Counselor Name Role Phone EM BOSWELL PP [phone] EM BOSWELL PP [phone] EM BOSWELL PP [phone] Summary purpose TRANSITION OF CARE AUTO GENERATION [...] 35 unit(s) subcutaneous 3 xDaily with Meals [phone] diabetes Allergies, adverse reactions, alerts Allergen Category Ingredient Status Reaction Severity Onset No Known Drug Allergy No known drug allergies No known drug allergies Confirmed or Verified Immunizations Status Date Not Given Reason Product Series # Effectiveness / 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 [...] restarted at 100 mg at bedtime. Em Crouch PA-C for MD GALI Aldana/lisha 02/04/2016 12:21:45/02/04/2016 13:11:16 Clinic Code: 99882 cc: [facility] [address] [place] [address] <END HEADER> [id number]:16:00 Progress Note PROGRESS NOTE 02/03/2016 19:16:07 S:Nica [...] 02/03/2016 19:16:04/27/1102/03/2016 19:47:11 Clinic Code: cc: <[facility] [address] [place] [address]<END HEADER> [id number]:07:00 Progress Note PROGRESS NOTE 02/02/2016 14:07:26 S: [...] 02/02/2016 14:07:26/02/02/2016 18:45:04 Clinic Code: cc: <[facility] [address] [place] [address]<END HEADER> 16-10-520488:39:00 Progress Note PROGRESS NOTE 02/01/2016 10:39:14 S: [...] gas pain. I discussed this with Tiffani Crouch this morning. 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 Tiffani was wondering about a potential hernia.I really cannot tell because of the patient's obesity.CT scan did not. Keith Quintanilla MD CVH/jt02/01/2016 10:39:14/02/01/2016 14:29:33 Clinic Code: cc: <[facility] [address] [address]<END HEADER> [id number]:17:00 Progress Note PROGRESS NOTE 02/01/2016 08:17:04 S: [...] Arrieta/mason 02/01/2016 08:17:01/26/0902/01/2016 08:54:23 Clinic Code: cc: <[facility] [address] [place] [address]<END HEADER> 44-11-120346:37:00 Progress Note PROGRESS NOTE 01/31/2016 16:37:57 S: [...] will continue with current pain relief measures. Sandra Brunner MD LIBRARIAN HELPER/cdj01/31/2016 16:37:57/01/31/2016 17:29:38 Clinic Code: cc: <[facility] [address] [place] [address]<END HEADER> [id number]:03:00 Progress Note PROGRESS NOTE 01/30/2016 15:03:27 S: [...] 01/30/2016 15:03:27/01/30/2016 15:48:00 Clinic Code: cc: <[facility] [address] [place] [address]<END HEADER> [id number]:21:00 Progress Note PROGRESS NOTE 01/29/2016 11:21:28 S: [...] diet today. 2. Will slow IV fluids. Sandra Brunner MD LIBRARIAN HELPER/nh 01/29/2016 11:21:28/01/29/2016 13:29:18 Clinic Code: cc: <[facility] [address] [address]<END HEADER> 77-39-062851:25:00 Progress Note PROGRESS NOTE 01/27/2016 19:25:00 S:Patient [...] 01/27/2016 19:25:00/01/27/2016 19:54:32 Clinic Code: cc: <[facility] [address] [address]<END HEADER> Routine Urinalysis :30:00 Result Normal Range Units Color YELLOW Clarity Clear Specific [place] 1.015 1.003-1.035 pH 5.0 4.5-8.0 Glucose 3+ [...] 12.0 10-20 Estimated GFR 79 >=60 mL/min/1.7 26-38-804785:40:00 Result Normal Range Units Sodium 144 134-145 mEq/l Potassium 3.7 3.5-5.1 mEq/l Chloride H 108 98-107 mEq/l CO2 27.8 22-28 mEq/l Glucose 101 70-105 mg/dl BUN 11 7-18 mg/dl Creatinine 0.74 0.6-1.0 mg/dl Calcium L 8.0 8.4-10.2 mg/dl Osmolality 286.4 280-300 mOsm/L Anion GAP 8.2 8-16 BUN/Creatinine Ratio 14.9 10-20 Estimated GFR 81 >=60 mL/min/1.7 [id number]:50:00 Result Normal Range Units Sodium 141 134-145 [...] 10.8 10-20 Estimated GFR 71 >=60 mL/min/1.7 [id number]:00:00 Result Normal Range Units Sodium 139 134-145 [...] 14.7 10-20 Estimated GFR 79 >=60 mL/min/1.7 [id number]:49:00 Result Normal Range Units Sodium 136 134-145 [...] 130-400 103/uL MPV H 11.8 7.3-10.4 FL [id number]:40:00 Result Normal Range Units WBC L 4.7 4.8-10.8 103/uL RBC 4.4 4.2-5.4 106/uL HGB 12.7 12.0-16.0 g/dl HCT 37.1 36.9-47.0 % MCV 83.6 81-99 FL MCH 28.6 27-31 pg MCHC 34.2 33-37 g/dl RDW 12.9 11.5-15.5 % PLT 130 130-400 103/uL MPV H 12.1 7.3-10.4 FL Neutro % 63.4 40-70 % Lymph % 22.1 20-40 % Gosper % 9.2 0-10.0 % Eos % 3.6 0-7.0 % Baso % 1.3 0-2 % Neutro # 3.0 1.5-7.5 103/uL Lymph # 1.0 0.9-4.0 103/uL Gosper # 0.4 0-0.8 103/uL Eos # 0.2 0-0.6 103/uL Baso # 0.1 0-0.1 103/uL [id number]:50:00 Result Normal Range Units WBC 5.0 4.8-10.8 103/uL RBC 4.7 4.2-5.4 106/uL HGB 13.2 12.0-16.0 g/dl HCT 39.5 36.9-47.0 % MCV 83.7 81-99 FL MCH 28.0 27-31 pg MCHC 33.4 33-37 g/dl RDW 12.8 11.5-15.5 % PLT L 120 130-400 103/uL MPV H 11.8 7.3-10.4 FL Segs 57.0 40-70 % Bands 1.0 0-5 % Lymphs 22.0 20-40 % Gosper H 14.0 0-10 % Eos 5.0 0-7 % Atypical Lymphs 1.0 0-5 % [id number]:35:00 Result Normal Range Units WBC 5.5 4.8-10.8 103/uL RBC 4.7 4.2-5.4 106/uL HGB 13.4 12.0-16.0 g/dl HCT 39.1 36.9-47.0 % MCV 82.5 81-99 FL MCH 28.3 27-31 pg MCHC 34.3 33-37 g/dl RDW 13.4 11.5-15.5 % PLT L 127 130-400 103/uL MPV H 12.0 7.3-10.4 FL Neutro % 68.5 40-70 % Lymph % L 15.0 20-40 % Gosper % H 10.8 0-10.0 % Eos % 4.2 0-7.0 % Baso % 1.5 0-2 % Neutro # 3.8 1.5-7.5 103/uL Lymph # L 0.8 0.9-4.0 103/uL Gosper # 0.6 0-0.8 103/uL Eos # 0.2 0-0.6 103/uL Baso # 0.1 0-0.1 103/uL Segs 65.0 40-70 % Lymphs 23.0 20-40 % Gosper 8.0 0-10 % Baso H 4.0 0-2 [...] 40-70 % Lymphs L 17.0 20-40 % Gosper 7.0 0-10 % Eos 3.0 0-7 % [...] 73.0 40-70 % Lymphs 20.0 20-40 % Gosper 6.0 0-10 % Eos 1.0 0-7 % [...] % Lymph % L 19.6 20-40 % Gosper % 7.4 0-10.0 % Eos % 2.4 0-7.0 % Baso % 1.4 0-2 % Neutro # 4.0 1.5-7.5 103/uL Lymph # 1.1 0.9-4.0 103/uL Gosper # 0.4 0-0.8 103/uL Eos # 0.1 [...] % Lymph % L 8.0 20-40 % Gosper % 4.3 0-10.0 % Eos % 0.8 0-7.0 % Baso % 1.1 0-2 % Neutro # H 8.7 1.5-7.5 103/uL Lymph # L 0.8 0.9-4.0 103/uL Gosper # 0.4 0-0.8 103/uL Eos # 0.1 0-0.6 103/uL Baso # 0.1 0-0.1 103/uL Special Chemistry [id number]:15:00 Result Normal Range Units Hemoglobin A1C H [...] should be interpreted with caution. Radiology Results [id number]:01:00 Abdomen 2 View PACs Image DATE OF EXAM: 2015 RAD 0037-ABDOMEN 2 VIEW : RADIOLOGY REPORT DATE OF SERVICE: 01/31/16 HISTORY: Abdominal pain ABDOMEN 2 [id number] HOURS There is some contrast material in the right colon from the prior CT study. There is moderate gaseous dilatation throughout the large bowel. There are no air fluid levels. There are no pathological calcifications. IMPRESSION: Mild nonspecific gaseous prominence of the colon. No acute abnormality. MD TANNER Ellis/lisha01/31/2016 15:31: / 01/31/2016 15:35:12 cc:Em Crouch PA-C This document has been electronically Signed by: On: DATE OF EXAM: 2015 RAD 0037-ABDOMEN 2 VIEW : RADIOLOGY REPORT DATE OF SERVICE: 01/31/16 HISTORY: Abdominal pain ABDOMEN 2 [id number] HOURS There is some contrast material in the right colon from the prior CT study. There is moderate gaseous dilatation throughout the large bowel. There are no air fluid levels. There are no pathological calcifications. IMPRESSION: Mild nonspecific gaseous prominence of the colon. No acute abnormality. MD TANNER Ellis/lisha01/31/2016 15:31: / 01/31/2016 15:35:12 cc:Em Crouch PA-C This document has been electronically Signed by: JOSIAH THORPE MD On: Feb 04 2016 12:01P ADM PAIN GASTRITIS Result Amended on 2016-02-04 at 12:01:35. Previous status was [place]. ADM PAIN GASTRITIS [id number]:01:00 Abdomen 2 View PACs Image DATE OF [...] residual contrast within bowel. Rafat Sanchez DO /ok 02/03/2016 08:24:00 / 02/03/2016 09:19:22 cc:Em Crouch PA-C This document has been electronically Signed [...] residual contrast within bowel. Rafat Sanchez DO /ok 02/03/2016 08:24:00 / 02/03/2016 09:19:22 cc:Em Crouch PA-C This document has been electronically Signed by: RAFAT SANCEHZ DO On: Feb 03 2016 11:01A ADM PAIN GASTRITIS Result Amended on 2016-02-03 at 11:01:11. Previous status was [place]. ADM PAIN GASTRITIS [id number]:55:00 Result Normal Range Units MPV H 11.8 7.3-10.4 FL :40:00 Result Normal Range Units MPV H 12.1 7.3-10.4 FL [id number]:50:00 Result Normal Range Units MPV H 11.8 7.3-10.4 FL 85-33-825438:35:00 Result Normal Range Units MPV H 12.0 7.3-10.4 FL :30:00 Result Normal Range Units MPV H 12.2 7.3-10.4 FL :15:00 Result Normal Range Units MPV H 12.4 7.3-10.4 FL [id number]:42:00 CT ABD/PEL W CONTRAST PACs Image DATE OF EXAM: 2015 [id number] ABD/PELV W CONTRAST : RADIOLOGY REPORT DATE [...] abdominal or pelvic abnormality. Josiah Thorpe MD MWD/ok01/27/2016 10:10:00 / 01/27/2016 10:32:42 cc:Em Crouch PA-C This document has been electronically Signed by: On: DATE OF EXAM: 2015 [id number] ABD/PELV W CONTRAST : RADIOLOGY REPORT DATE [...] TANNER Ellis/nh01/27/2016 10:10:00 / 01/27/2016 10:32:42 cc:Em Crouch PA-C This document has been electronically Signed by: JOSIAH THORPE MD On: 20151:42P ADM PAIN Result Amended on 2016-01-27 at 13:42:47. Previous status was [place]. ADM PAIN [id number]:07:00 Abdomen 2 View PACs Image DATE OF [...] abdomen. MD TANNER Ellis/pb01/26/2016 21:30:01/26/2016 23:32:09 cc:Em Crouch PA-C This document has been electronically Signed [...] MD TANNER Ellis/jeff01/26/2016 21:30:00 01/26/2016 23:32:09 cc:Em Crouch PA-C This document has been electronically Signed by: JOSIAH THORPE MD On: 2015 11:07A ADM PAIN Result Amended on 2016-01-27 at 11:07:30. Previous status was [place]. ADM PAIN [id number]:00:00 Result Normal Range Units MPV H 11.9 7.3-10.4 FL [id number]:49:00 Result Normal Range Units MPV H 11.8 7.3-10.4 FL History of procedures Procedure Code Code Type Description Date Performed Performing Physician [id number] ICD10 Excision of Stomach, Endo, Diagn 01-28-2016 MEGAN MONTANO 42694 CPT-4 COMPLETE CBC W/AUTO DIFF WBC 01-26-2016 SANDRA BRUNNER 50554 CPT-4 COMPREHEN METABOLIC PANEL 01-26-2016 SANDRA BRUNNER 96027 CPT-4 ASSAY OF LIPASE 01-26-2016 SANDRA BRUNNER 60012 CPT-4 URINALYSIS AUTO W/SCOPE 01-26-2016 SANDRA BRUNNER 00058 CPT-4 H PYLORI AG IA 01-26-2016 SANDRA BRUNNER 53229 CPT-4 ELECTROCARDIOGRAM TRACING 01-26-2016 SANDRA BRUNNER 43155 CPT-4 ASSAY OF TROPONIN QUANT 01-26-2016 SANDRA BRUNNER 95948 CPT-4 X-RAY EXAM OF ABDOMEN 01-26-2016 SANDRA BRUNNER 40660 CPT-4 ROUTINE VENIPUNCTURE 01-26-2016 FERNANDEZ GILLESPIE 59389 CPT-4 COMPLETE CBC W/AUTO DIFF WBC 01-27-2016 SANDRA BRUNNER 16518 CPT-4 COMPREHEN METABOLIC PANEL 01-27-2016 SANDRA BRUNNER 90316 CPT-4 CT ABD & PELV W/CONTRAST 01-27-2016 SANDRA BRUNNER 97702 CPT-4 ASSAY OF LIPASE 01-27-2016 SANDRA BRUNNER 10095 CPT-4 ROUTINE VENIPUNCTURE 01-27-2016 EM CROUCH 24338 CPT-4 ELECTROCARDIOGRAM REPORT 01-26-2016 FERNANDEZ GILLESPIE J1170 CPT-4 HYDROMORPHONE INJECTION 01-26-2016 FERNANDEZ GILLESPIE J7120 CPT-4 RINGERS LACTATE INFUSION 01-26-2016 FERNANDEZ GILLESPIE J2405 CPT-4 ONDANSETRON HCL INJECTION 01-26-2016 FERNANDEZ GILLESPIE J1815 CPT-4 INSULIN INJECTION 01-26-2016 EM CROUCH J1170 CPT-4 HYDROMORPHONE INJECTION 01-26-2016 SANDRA BRUNNER J2405 CPT-4 ONDANSETRON HCL INJECTION 01-26-2016 SANDRA BRUNNER J7030 CPT-4 NORMAL SALINE SOLUTION INFUS 01-26-2016 SANDRA BRUNNER J1170 CPT-4 HYDROMORPHONE INJECTION 01-26-2016 SANDRA BRUNNER J3010 CPT-4 FENTANYL CITRATE INJECITON 01-26-2016 SANDRA BRUNNER J7120 CPT-4 RINGERS LACTATE INFUSION 01-26-2016 EM CROUCH J2405 CPT-4 ONDANSETRON HCL INJECTION 01-27-2016 FERNANDEZ GILLESPIE J1815 CPT-4 INSULIN INJECTION 01-27-2016 EM CROUCH J7120 CPT-4 RINGERS LACTATE INFUSION 01-27-2016 EM CROUCH J7120 CPT-4 RINGERS LACTATE INFUSION 01-27-2016 EM CROUCH J1170 CPT-4 HYDROMORPHONE INJECTION 01-27-2016 EM CROUCH J1170 CPT-4 HYDROMORPHONE INJECTION 01-27-2016 EM CROUCH J1170 CPT-4 HYDROMORPHONE INJECTION 01-27-2016 EM CROUCH J1170 CPT-4 HYDROMORPHONE INJECTION 01-27-2016 EM CROCUH J1170 CPT-4 HYDROMORPHONE INJECTION 01-27-2016 EM CROUCH J1170 CPT-4 HYDROMORPHONE INJECTION 01-27-2016 EM CROUCH J2550 CPT-4 PROMETHAZINE HCL INJECTION 01-27-2016 EM CROUCH Functional status Functional Status Finding Observation Time Hearing Prob Loc none :38 Vision Problems yes :38 Vision Correct Dev glasses :38 Ambulation Asst Dev cane 01-19-043566:38 Range of Motion full :54 Muscle Strength RUE 5 ROM full resist :54 Muscle Strength RLE 5 ROM full resist :54 Muscle Strength LUE 5 ROM full resist :54 Muscle Strength LLE 5 ROM full resist :54 Transfers assist x 1 :54 Ambulation in room :54 Balance unsteady :54 Bathing Assistance minimal 58-57-106796:38 Eating Assistance minimal 71-45-173231:38 Dressing Assistance minimal :38 Toileting Assistance minimal :38 Transfer Assistance moderate :38 Decline Slf Care/Mob no :38 Phys Cond Stable yes :38 Nutrition normal :54 Diet ADA specify calorie Comment: 1800 :54 Oral Cavity moist and intact :54 Teeth missing (specify) Comment: several :54 Dental Hygiene good 47-21-061658:54 Abdomen Appearance obese :54 Abdomen tender :54 Bowel Sounds present :54 NG Tube no :54 Feeding Tube none :54 Pinto no :54 Cont Bladder Irr no :54 Ostomy no :54 Stool normal Comment: last bm was 02/02/16 86-99-653868:54 Color normal :02 Consistency loose 53-39-144278:02 Urination normal :54 Urine Clarity clear :05 [...] nasal cannula :00 Oxygen Flow Rate ra 86-20-047775:00 C-PAP no :54 BI-PAP no :54 New Infection Comment: no dx infection :38 Temp >100.4 no 83-70-194890:54 Temp <96.8 no :54 Chills with rigors no :54 HR > 90bpm no :54 Respirations > 20 no :54 Systolic <90 no :54 headache stiff neck no :54 WBC > 18331 no :54 WBC < 4000 no :54 IV Site Location LFA :00 IV Type peripheral :00 IV Site Information discontinued :00 IV Site Start Attmpt 2 times :57 IV Site Michael 22 :55 IV Site Appearance WNL :55 IV Site Color clear :55 IV Site Patent yes :55 Dressing Changed yes :57 Dressing Type occlusive :55 Nursing Note Pt still needs to fill some of her medications and is going to do that today. :53 Cognitive Status Finding Observation Time Oriented To [...] :56 Physical no :56 Hearing no :56 Automotive Service Porter Needed no :56 Sign Language no :56 Emotional yes 79-19-766614:56 Vision yes 19-61-782972:56 [place] no 53-21-501015:56 Financial no 75-40-434782:56 Vital signs Type Value Date Respiration Rate 20breaths per minute :00 Pulse 68beats per minute :00 Oxygen Saturation 97% :00 BP Systolic 163mmHg :00 BP Diastolic 68mmHg :00 Temperature 98.9F :00 Height 67.5inches :35 Weight 293.7LB 73-75-259811:35 Social history Type Value Smoking Status FORMER [...] 2015 Vaccines Ord Given no Flu Vac 2015 Tetanus Vac 2011 Medical Equipment yes Comment: cane Diet Explained yes Follow up appt already scheduled Follow Up Appt D/T 02/12/16 1:30 pm Comment: with
--- OUTSIDE RECORDS SUMMARY | 2018-10-10 10:15 | XMS REPORT ---
Author Author [facility] Medical Staff Organization [facility] Address [address] [id number] Phone [phone] Care Team Providers Care Soda Tester Name Role Phone MELISSA MEDEROS, SANDRA FONG [phone] MELISSA MEDEROS, SANDRA FONG [phone] MELISSA MEDEROS, SANDRA FONG [phone] MELISSA MEDEROS, SANDRA FONG [phone] Summary purpose TRANSITION OF CARE AUTO GENERATION Chief Complaint and Reason for Visit Admit Diagnosis 1 LUMBOSACRAL NEURITIS NOS Problem list No authorized problems tracked for continuity of care are available for this visit. Encounters The following conditions tracked for encounter diagnoses were recorded for this visit: Finding or Diagnosis Status Certainty Chronicity Onset *ABDOMINAL PAIN Active *BACK PAIN Active Medications Home Medications Medication Directions Started Status Source Fish Oil 500 mg capsule 500 mg oral 1 Daily Current puxxjjj-mnaailckt-dtelbm-zinc tablet 1000 mg oral 1 Daily Current ibuprofen 600 mg tablet 600 mg oral 3 Times Daily for pain Current Rx Discharge Report Xanax 0.25 mg tablet 0.25 mg oral 3 Times Daily Current metformin oral 850 mg oral 2 Times Daily Current trazodone 100 mg tablet 200 mg oral At Bed Time Current Celexa 40 mg tablet 0.5 tablet oral 1 Daily for depression Discont Rx Discharge Report Allergies, adverse reactions, alerts Allergen Category Ingredient Status Reaction Severity Onset No Known Drug Allergy No known drug allergies No known drug allergies Confirmed or Verified Immunizations Status Date Not Given Reason Product Series # Effectiveness / Reaction Weight Clerk Lot / Expiration Given 01-18-2015 PNEUMOCOCCAL 23-SHARON P-SAC VAC 1 MERCK,SHARP,LYDIA [id number] / 12-20-2015 Relevant diagnostic tests and/or laboratory data RESULTS [id number]:22:00 Discharge Summary DISCHARGE SUMMARY ADMISSION DIAGNOSIS: 1. Thoracic radicular pain. 2. Diabetes. HISTORY OF PRESENT ILLNESS: This 59-year-old female was initially admitted to observation on the with abdominal pain and generalized pain. She was ultimately made an inpatient after MRI revealed degenerative disc changes noted throughout the thoracic spine with multiple levels of disc herniation which she thought to be contributing to her pain. HOSPITAL COURSE: The patient was admitted to inpatient status where we are added Lyrica for neuropathic pain as well as Cymbalta and continued oxycodone. She states she is feeling slightly better is able to tolerate getting up and around a little bit better, but she states the pain is still not well controlled. However, at this point we felt that she would tolerate further adjustments in medications as an outpatient. The patient will be discharged with a plan to follow up with us in clinic next week on Wednesday appointment January 23 at 8:15 a.m. Her discharge medications are as follows, oxycodone 10 mg one by mouth four times a day as needed, Lyrica 25 mg 3 times daily, Ibuprofen 600 mg three times a day, Cymbalta 30 mg daily with plan to increase to 50 mg daily in one week, calcium daily, fish oil daily, metformin 850 mg twice daily, Trazodone 200 mg at bedtime, Xanax 3 times daily as needed, Celexa decreasing the dose to 20 mg daily for a week and then stop it completely as she increases the dose of Cymbalta. We will follow up sooner if necessary. We will consider outpatient epidural infusion since if she is a candidate for such. Em Piña PA-C for Sandra Brunner MD /nm 01/18/2015 12:22:54/01/18/2015 15:03:16 Clinic Code: 31340 cc: [facility] [address] [place] [address] <END HEADER> Routine Urinalysis [id number]:35:00 Result Normal Range Units Color YELLOW Clarity Clear Specific Lowry 1.010 1.003-1.035 pH 6.0 4.5-8.0 Glucose 3+ Bilirubin NEGATIVE Ketones NEGATIVE Protein NEGATIVE Urobilinogen 0.2 0-0.2 E.U./dL Nitrites NEGATIVE Blood NEGATIVE Leukocytes NEGATIVE WBCs No WBC's Seen RBCs 0-5 Squamous Epithelial Few Chemistry [id number]:30:00 Result Normal Range Units Sodium 140 134-145 mEq/l Potassium 4.6 3.5-5.1 mEq/l Chloride 103 98-107 mEq/l CO2 27.6 22-28 mEq/l Glucose H 257 70-105 mg/dl BUN H 28 7-18 mg/dl Creatinine H 1.06 0.6-1.0 mg/dl Calcium L 8.2 8.4-10.2 mg/dl Osmolality 293.7 280-300 mOsm/L Anion GAP 9.4 8-16 BUN/Creatinine Ratio H 26.4 10-20 Estimated GFR L 53 >=60 mL/min/1.7 [id number]:00:00 Result Normal Range Units C-Reactive Protein < 0.2 0-1 mg/dl [id number]:59:00 Result Normal Range Units Sodium 136 134-145 mEq/l Potassium 4.3 3.5-5.1 mEq/l Chloride 100 98-107 mEq/l CO2 27.4 22-28 mEq/l Glucose H 280 70-105 mg/dl BUN H 24 7-18 mg/dl Creatinine H 1.26 0.6-1.0 mg/dl Calcium 8.9 8.4-10.2 mg/dl TP - Total Protein 6.7 6.0-8.3 g/dl Albumin L 3.4 3.5-5 g/dl Bilirubin - Total 0.4 0.1-1.0 mg/dl AST 14 10-42 IU/L ALT 23 12-65 IU/L ALP 66 25-72 IU/L Osmolality 286.1 280-300 mOsm/L Albumin/Globulin Ratio 1.0 0-8 Anion GAP 8.6 8-16 BUN/Creatinine Ratio 19.0 10-20 Estimated GFR L 44 >=60 mL/min/1.7 [id number]:44:00 Result Normal Range Units Sodium 134 134-145 mEq/l Potassium 4.0 3.5-5.1 mEq/l Chloride 100 98-107 mEq/l CO2 25.2 22-28 mEq/l Glucose H 350 70-105 mg/dl BUN H 21 7-18 mg/dl Creatinine 0.99 0.6-1.0 mg/dl Calcium 8.4 8.4-10.2 mg/dl TP - Total Protein 6.8 6.0-8.3 g/dl Albumin 3.6 3.5-5 g/dl Bilirubin - Total 0.4 0.1-1.0 mg/dl AST 10 10-42 IU/L ALT 21 12-65 IU/L ALP H 76 25-72 IU/L Osmolality 285.2 280-300 mOsm/L Albumin/Globulin Ratio 1.1 0-8 Anion GAP 8.8 8-16 BUN/Creatinine Ratio H 21.2 10-20 Estimated GFR L 58 >=60 mL/min/1.7 Hematology [id number]:59:00 Result Normal Range Units WBC 6.3 4.8-10.8 103/uL RBC H 5.5 4.2-5.4 106/uL HGB 15.0 12.0-16.0 g/dl HCT 41.9 36.9-47.0 % MCV L 75.6 81-99 FL MCH 27.1 27-31 pg MCHC 35.8 33-37 g/dl RDW 13.5 11.5-15.5 % PLT 187 130-400 103/uL MPV H 11.3 7.3-10.4 FL Segs 63.0 40-70 % Lymphs 26.0 20-40 % [place] 8.0 0-10 % Eos 1.0 0-7 % Baso 2.0 0-2 % [id number]:44:00 Result Normal Range Units WBC 9.5 4.8-10.8 103/uL RBC H 5.5 4.2-5.4 106/uL HGB 15.0 12.0-16.0 g/dl HCT 41.8 36.9-47.0 % MCV L 76.0 81-99 FL MCH 27.3 27-31 pg MCHC 35.9 33-37 g/dl RDW 13.3 11.5-15.5 % PLT 159 130-400 103/uL MPV H 11.3 7.3-10.4 FL Neutro % H 75.4 40-70 % Lymph % L 15.0 20-40 % [place] % 6.8 0-10.0 % Eos % 1.7 0-7.0 % Baso % 1.1 0-2 % Neutro # 7.2 1.5-7.5 103/uL Lymph # 1.4 0.9-4.0 103/uL [place] # 0.6 0-0.8 103/uL Eos # 0.2 0-0.6 103/uL Baso # 0.1 0-0.1 103/uL Special Chemistry [id number]:46:00 Result Normal Range Units Hemoglobin A1C H 10.7 4.5-6.2 % Reference Lab (Sendout) [id number]:00:00 Result Normal Range Units TRANG (Antinuclear Antibodies) NEGATIVE NEGATIVE TEST PERFORMED AT: [facility] [address] [place] [address] ASTRID VILLARREAL DO,MPH Body Fluid [id number]:35:00 Result Normal Range Units pH 6.0 4.5-8.0 Hematology - Other (Misc) [id number]:00:00 Result Normal Range Units Sed Rate 1 0-30 Radiology Results [id number]:28:00 MRI L-SPINE W/O CONT PACs Image DATE OF EXAM: Jan 17 2015 MRI 0085-MRI L SPINE WO CONTRAST : RADIOLOGY REPORT DATE OF SERVICE: 01/17/15 HISTORY:Lower extremity pain, radiculopathy. MAGNETIC RESONANCE IMAGING OF THE LUMBAR SPINE 1625 HOURS Imaging was performed in the sagittal and axial planes. No contrast was administered. The lumbar vertebrae are normal in height. There is minimal degenerative anterolisthesis of L4 on L5 measuring 1.5 to 2 mm.There is a benign fat island within the right side of L5. There are no significant marrow lesions. The upper sacrum is normal. The conus medullaris is normal and terminates at the caudal aspect of L1. The paraspinous soft tissues are normal. Disc spaces and the spinal canal are well maintained at T12-L1, L1-L2 and L2-L3. The facets, foramina, nerve roots and canal are normal at these levels. At L3-L4, there is mild degenerative disc narrowing and desiccation and minimal posterior degenerative disc bulge. There is minimal degenerative facet narrowing. There is no foraminal stenosis or nerve root effacement. At L4-L5, there is mild degenerative disc narrowing and mild posterior disc bulging. There is moderate to marked degenerative facet arthrosis. There is mild transverse canal stenosis due to these hypertrophic changes. There is mild foraminal stenosis bilaterally, greater on the left than the right. There is no disc herniation at this level. At L5-S1, the disc is well maintained. There is mild to moderate facet arthrosis. The canal, foramina and nerve roots are well maintained. IMPRESSION: 1)Mild degenerative lumbar disc changes at L3-L4 and L4-L5. 2)Lumbar facet arthrosis at the L4-L5 level producing transverse canal stenosis and mild foraminal stenosis, greater on the left than the right. 3)Mild to moderate degenerative facet arthrosis at L5-S1 without canal impingement or foraminal narrowing. Josiah Thorpe MD MWLane/pb01/17/2015 17:09:00 / 01/17/2015 22:39:21 cc:Dr. Sandra Brunner This document has been electronically Signed by: On: DATE OF EXAM: Jan 17 2015 MRI 0085-MRI L SPINE WO CONTRAST : RADIOLOGY REPORT DATE OF SERVICE: 01/17/15 HISTORY:Lower extremity pain, radiculopathy. MAGNETIC RESONANCE IMAGING OF THE LUMBAR SPINE 1625 HOURS Imaging was performed in the sagittal and axial planes. No contrast was administered. The lumbar vertebrae are normal in height. There is minimal degenerative anterolisthesis of L4 on L5 measuring 1.5 to 2 mm.There is a benign fat island within the right side of L5. There are no significant marrow lesions. The upper sacrum is normal. The conus medullaris is normal and terminates at the caudal aspect of L1. The paraspinous soft tissues are normal. Disc spaces and the spinal canal are well maintained at T12-L1, L1-L2 and L2-L3. The facets, foramina, nerve roots and canal are normal at these levels. At L3-L4, there is mild degenerative disc narrowing and desiccation and minimal posterior degenerative disc bulge. There is minimal degenerative facet narrowing. There is no foraminal stenosis or nerve root effacement. At L4-L5, there is mild degenerative disc narrowing and mild posterior disc bulging. There is moderate to marked degenerative facet arthrosis. There is mild transverse canal stenosis due to these hypertrophic changes. There is mild foraminal stenosis bilaterally, greater on the left than the right. There is no disc herniation at this level. At L5-S1, the disc is well maintained. There is mild to moderate facet arthrosis. The canal, foramina and nerve roots are well maintained. IMPRESSION: 1)Mild degenerative lumbar disc changes at L3-L4 and L4-L5. 2)Lumbar facet arthrosis at the L4-L5 level producing transverse canal stenosis and mild foraminal stenosis, greater on the left than the right. 3)Mild to moderate degenerative facet arthrosis at L5-S1 without canal impingement or foraminal narrowing. Josiah Thorpe MD MWD/pb01/17/2015 17:09:00 / 01/17/2015 22:39:21 cc:Dr. Sandra Brunner This document has been electronically Signed by: JOSIAH THORPE On: Jan 18 20159:28A ABDOMINAL PAIN BACK PAIN Result Amended on 2015-01-18 at 09:28:47. Previous status was CA. ABDOMINAL PAIN BACK PAIN MRI T-SPINE W/O CONT PACs Image DATE OF EXAM: Jan 17 2015 MRI 0150-MRI T SPINE WO CONTRAST : RADIOLOGY REPORT DATE OF SERVICE: 01/17/15 HISTORY:Back pain and radiculopathy, upper extremity radiculopathy and left leg radiculopathy. MAGNETIC RESONANCE IMAGING OF THE THORACIC SPINE 1625 HOURS Imaging of the thoracic spine was performed in the sagittal and axial planes. No contrast was administered. The thoracic vertebrae are normal in height and alignment and show normal uniform marrow signal. There is no fracture or subluxation. The paraspinous soft tissues are normal. The disc spaces and canal are normal at the C7-T1, T1-T2, T2-T3 and T3-T4 levels. At T4-T5, there is a left paracentral disc herniation with effacement of the ventral aspect of the subarachnoid space and mild extradural effacement of the ventral aspect of the spinal cord. At T5-T6, there is central and left paracentral disc herniation with effacement of the subarachnoid space and ventral aspect of the spinal cord. At T6-T7, there is disc bulging, and there is central and right paracentral disc herniation with mild effacement of the ventral aspect of the subarachnoid space. No cord compression is seen. At T7-T8, there is a small right paracentral disc herniation with effacement of the ventral aspect of the subarachnoid space. At T8-T9, T9-T10, T10-T11 and T11-T12, there is disc narrowing without posterior bulging or significant herniation. The thoracic spinal cord shows no mass or focal abnormal signal. There is no bony canal stenosis. IMPRESSION:Extensive degenerative disc changes. Multiple levels of disc herniation as described above, including T4-T5, T5-T6, T6-T7 and T7-T8. MD TANNER Ellis/pb03 17:09: / 01/17/2015 22:35:10 cc:Dr. Sandra Brunner This document has been electronically Signed by: On: DATE OF EXAM: Jan 17 2015 MRI 0150-MRI T SPINE WO CONTRAST : RADIOLOGY REPORT DATE OF SERVICE: 01/17/15 HISTORY:Back pain and radiculopathy, upper extremity radiculopathy and left leg radiculopathy. MAGNETIC RESONANCE IMAGING OF THE THORACIC SPINE 1625 HOURS Imaging of the thoracic spine was performed in the sagittal and axial planes. No contrast was administered. The thoracic vertebrae are normal in height and alignment and show normal uniform marrow signal. There is no fracture or subluxation. The paraspinous soft tissues are normal. The disc spaces and canal are normal at the C7-T1, T1-T2, T2-T3 and T3-T4 levels. At T4-T5, there is a left paracentral disc herniation with effacement of the ventral aspect of the subarachnoid space and mild extradural effacement of the ventral aspect of the spinal cord. At T5-T6, there is central and left paracentral disc herniation with effacement of the subarachnoid space and ventral aspect of the spinal cord. At T6-T7, there is disc bulging, and there is central and right paracentral disc herniation with mild effacement of the ventral aspect of the subarachnoid space. No cord compression is seen. At T7-T8, there is a small right paracentral disc herniation with effacement of the ventral aspect of the subarachnoid space. At T8-T9, T9-T10, T10-T11 and T11-T12, there is disc narrowing without posterior bulging or significant herniation. The thoracic spinal cord shows no mass or focal abnormal signal. There is no bony canal stenosis. IMPRESSION:Extensive degenerative disc changes. Multiple levels of disc herniation as described above, including T4-T5, T5-T6, T6-T7 and T7-T8. MD TANNER Ellis/pb01/17/2015 17:09: / 01/17/2015 22:35:10 cc:Dr. Sandra Brunner This document has been electronically Signed by: JOSIAH THORPE On: Jan 18 20159:28A ABDOMINAL PAIN BACK PAIN Result Amended on 2015-01-18 at 09:28:40. Previous status was CA. ABDOMINAL PAIN BACK PAIN [id number]:07:00 CT ABD/PEL W CONTRAST PACs Image DATE OF EXAM: Jan 17 2015 [id number] ABD/PELV W CONTRAST : RADIOLOGY REPORT DATE OF SERVICE:01/17/2015 HISTORY:Abdominal pain,predominantly umbilical region, diarrhea. CT ABDOMEN AND PELVIS WITH CONTRAST 0930 HOURS Axial scans were obtained at 5 mm intervals following administration of oral and intravenous contrast. 75 mL Isovue-300 was utilized for intravenous enhancement. Comparison is made with the prior CT scans performed 09/12/2014 and 12/30/2012. The liver and spleen are normal. The pancreas is normal. Again noted is a large left suprarenal mass containing fat and soft tissue elements. This measures 10.8 cm transverse, 11.5 cm AP, and 11 cm cephalocaudal. This shows several millimeters of growth since the prior study. The right adrenal gland is normal. The left kidney is displaced caudally by the suprarenal mass. The right kidney is normal. There are no renal calculi or renal masses. The aorta shows some atherosclerotic calcification without aneurysm. There is no hernia. The abdominal wall is intact. There is no diverticulitis. The visualized abdominal and pelvic bowel loops are normal without wall thickening or inflammatory change. The bladder is normal. The uterus is small. IMPRESSION:Large fat-containing left adrenal gland mass most consistent with myelolipoma. This is slightly larger whencomplication ared with prior studies. Status post cholecystectomy. No other significant abdominal or pelvic abnormality. MD TANNER Ellis/cc01/17/2015 10:42:00 / 01/17/2015 13:09:12 cc:Em Piña This document has been electronically Signed by: On: DATE OF EXAM: Jan 17 2015 [id number] ABD/PELV W CONTRAST : RADIOLOGY REPORT DATE OF SERVICE:01/17/2015 HISTORY:Abdominal pain,predominantly umbilical region, diarrhea. CT ABDOMEN AND PELVIS WITH CONTRAST 0930 HOURS Axial scans were obtained at 5 mm intervals following administration of oral and intravenous contrast. 75 mL Isovue-300 was utilized for intravenous enhancement. Comparison is made with the prior CT scans performed 09/12/2014 and 12/30/2012. The liver and spleen are normal. The pancreas is normal. Again noted is a large left suprarenal mass containing fat and soft tissue elements. This measures 10.8 cm transverse, 11.5 cm AP, and 11 cm cephalocaudal. This shows several millimeters of growth since the prior study. The right adrenal gland is normal. The left kidney is displaced caudally by the suprarenal mass. The right kidney is normal. There are no renal calculi or renal masses. The aorta shows some atherosclerotic calcification without aneurysm. There is no hernia. The abdominal wall is intact. There is no diverticulitis. The visualized abdominal and pelvic bowel loops are normal without wall thickening or inflammatory change. The bladder is normal. The uterus is small. IMPRESSION:Large fat-containing left adrenal gland mass most consistent with myelolipoma. This is slightly larger whencomplication ared with prior studies. Status post cholecystectomy. No other significant abdominal or pelvic abnormality. MD TANNER Ellis/cc01/17/2015 10:42:00 / 01/17/2015 13:09:12 cc:Em Piña This document has been electronically Signed by: JOSIAH THORPE On: Jan 17 20152:07P ABDOMINAL PAIN BACK PAIN Result Amended on 2015-01-17 at 14:07:57. Previous status was CA. ABDOMINAL PAIN BACK PAIN [id number]:59:00 Result Normal Range Units MPV H 11.3 7.3-10.4 FL [id number]:53:00 Abdomen 2 View PACs Image DATE OF EXAM: Jan 15 2015 RAD 0037-ABDOMEN 2 VIEW : RADIOLOGY REPORT DATE OF SERVICE: 01/15/15 HISTORY: Right sided abdominal pain ABDOMEN 2 VIEWS 1800 HOURS Moderate stool content is evident in the colon. The small bowel is unremarkable. There is no free air or obstruction. There are no pathological calcifications. Surgical clips are noted in the right upper quadrant. IMPRESSION: Moderate retained colonic waste. Otherwise no acute process. MD TANNER Ellis/nh01/16/2015 08:00:00 / 01/16/2015 08:14:57 cc:Dr. Sandra Brunner This document has been electronically Signed by: On: DATE OF EXAM: Jan 15 2015 RAD 0037-ABDOMEN 2 VIEW : RADIOLOGY REPORT DATE OF SERVICE: 01/15/15 HISTORY: Right sided abdominal pain ABDOMEN 2 VIEWS 1800 HOURS Moderate stool content is evident in the colon. The small bowel is unremarkable. There is no free air or obstruction. There are no pathological calcifications. Surgical clips are noted in the right upper quadrant. IMPRESSION: Moderate retained colonic waste. Otherwise no acute process. MD TANNER Ellis/lisha01/16/2015 08:00: / 01/16/2015 08:14:57 cc:Dr. Sandra Brunner This document has been electronically Signed by: JOSIAH THORPE On: Jan 16 20159:53A ABDOMINAL PAIN BACK PAIN Result Amended on 2015-01-16 at 09:53:40. Previous status was CA. ABDOMINAL PAIN BACK PAIN LUMBAR SPINE XRAY - 5V PACs Image DATE OF EXAM: Jan 15 2015 RAD 1050-LUMBAR SPINE XRAY-5 VIEW : RADIOLOGY REPORT DATE OF SERVICE: 01/15/15 HISTORY: Back pain LUMBAR SPINE 5 [id number] HOURS Lumbar vertebral body height and alignment is normal. There is no fracture or subluxation. Minor marginal disc osteophytes are present at the L3-L4 and L4-L5 levels. There is disc narrowing and degenerative vacuum change at L5-S1. There is minor facet arthrosis at the L4-L5 and L5-S1 levels. IMPRESSION: Degenerative disc and facet changes in the lumbar spine as above. No acute process identified. MD TANNER Ellis/lisha01/16/2015 08:02:01/16/2015 08:17:04 cc:Dr. Sandra Brunner This document has been electronically Signed by: On: DATE OF EXAM: Jan 15 2015 RAD 1050-LUMBAR SPINE XRAY-5 VIEW : RADIOLOGY REPORT DATE OF SERVICE: 01/15/15 HISTORY: Back pain LUMBAR SPINE 5 [id number] HOURS Lumbar vertebral body height and alignment is normal. There is no fracture or subluxation. Minor marginal disc osteophytes are present at the L3-L4 and L4-L5 levels. There is disc narrowing and degenerative vacuum change at L5-S1. There is minor facet arthrosis at the L4-L5 and L5-S1 levels. IMPRESSION: Degenerative disc and facet changes in the lumbar spine as above. No acute process identified. MD TANNER Ellis/kaylee 08:02: / 01/16/2015 08:17:04 cc:Dr. Sandra Brunner This document has been electronically Signed by: JOSIAH THORPE On: Jan 16 20159:53A ABDOMINAL PAIN BACK PAIN Result Amended on 2015-01-16 at 09:53:46. Previous status was CA. ABDOMINAL PAIN BACK PAIN [id number]:44:00 Result Normal Range Units MPV H 11.3 7.3-10.4 FL History of procedures Procedure Code Code Type Description Date Performed Performing Physician [id number] CPT-4 COMPLETE CBC W/AUTO DIFF WBC 01-15-2015 EM PIÑA 27804 CPT-4 COMPREHEN METABOLIC PANEL 01-15-2015 EM PIÑA 53552 CPT-4 URINALYSIS, AUTO W/SCOPE 01-15-2015 EM PIÑA 50541 CPT-4 X-RAY EXAM OF ABDOMEN 01-15-2015 EM PIÑA 82348 CPT-4 X-RAY EXAM OF LOWER SPINE 01-15-2015 EM PIÑA J1815 CPT-4 INSULIN INJECTION 01-15-2015 AMALIA VILLAFUERTE 97918 CPT-4 ROUTINE VENIPUNCTURE 01-15-2015 AMALIA VILLAFUERTE 73504 CPT-4 HETEROPHILE ANTIBODIES 01-16-2015 EM PIÑA 81213 CPT-4 COMPREHEN METABOLIC PANEL 01-16-2015 EM PIÑA 39849 CPT-4 RBC SED RATE, NONAUTOMATED 01-16-2015 EM PIÑA 33626 CPT-4 C-REACTIVE PROTEIN 01-16-2015 EM PIÑA 81688 CPT-4 ANTINUCLEAR ANTIBODIES 01-16-2015 EM PIÑA J1885 CPT-4 TORADOL SYR 30MG/ML 01-16-2015 EM PIÑA J1885 CPT-4 TORADOL SYR 30MG/ML 01-16-2015 EM PIÑA J7030 CPT-4 NORMAL SALINE SOLUTION INFUS 01-16-2015 EM PIÑA J1885 CPT-4 TORADOL SYR 30MG/ML 01-16-2015 EM PIÑA 87624 CPT-4 ROUTINE VENIPUNCTURE 01-16-2015 EM PIÑA 18189 CPT-4 COMPLETE CBC, AUTOMATED 01-16-2015 EM PIÑA 56153 CPT-4 BL SMEAR W/DIFF WBC COUNT 01-16-2015 EM WILLA 60584 CPT-4 METABOLIC PANEL TOTAL CA 01-17-2015 EM PIÑA 28726 CPT-4 CT ABDOMEN&PELVIS W/CONTRAST 01-17-2015 EM PIÑA 99576 CPT-4 MRI LUMBAR SPINE W/O DYE 01-17-2015 EM WILLA 40543 CPT-4 MRI CHEST SPINE W/O DYE 01-17-2015 EM PIÑA J7030 CPT-4 NORMAL SALINE SOLUTION INFUS 01-17-2015 EM PIÑA J7030 CPT-4 NORMAL SALINE SOLUTION INFUS 01-17-2015 EM PIÑA J1885 CPT-4 TORADOL SYR 30MG/ML 01-17-2015 EM PIÑA J1885 CPT-4 TORADOL SYR 30MG/ML 01-17-2015 EM PIÑA J1885 CPT-4 TORADOL SYR 30MG/ML 01-17-2015 EM PIÑA J1885 CPT-4 TORADOL SYR 30MG/ML 01-17-2015 EM PIÑA 18878 CPT-4 ROUTINE VENIPUNCTURE 01-17-2015 EM PIÑA Functional status Functional Status Finding Observation Time Hearing Prob Loc none 25-89-748586:48 Vision Problems yes :48 Vision Correct Dev glasses 77-96-315440:48 Ambulation Asst Dev none 96-81-406464:48 Range of Motion full 44-17-679504:30 Muscle Strength RUE 5 ROM full resist 48-28-545709:30 Muscle Strength RLE 5 ROM full resist 01-40-745924:30 Muscle Strength LUE 5 ROM full resist 46-46-021359:30 Muscle Strength LLE 5 ROM full resist 99-55-822864:30 Transfers assist x 1 03-49-591331:30 Ambulation in room 39-83-523080:30 Balance steady 84-64-686250:30 Bathing Assistance none :48 Eating Assistance none :48 Dressing Assistance none 76-24-109508:48 Toileting Assistance none 57-71-103390:48 Transfer Assistance minimal :48 Decline Slf Care/Mob yes (consult PT) :48 Phys Cond Stable yes :48 Nutrition normal : Diet ADA specify calorie Comment: 1800 :30 Oral Cavity moist :30 Teeth missing (specify) Comment: Several, scattered :30 Dental Hygiene good :30 Abdomen Appearance obese :30 Abdomen soft 30-91-088913:30 Bowel Sounds present :30 NG Tube no :30 Feeding Tube none :30 Pinto no : Ostomy no : Stool constipation Comment: Per patient report :30 Color normal :00 Consistency firm :00 Urination normal 02-63-943137:30 Urine Clarity clear :48 Urine Color yellow :48 Quality sym/unlabored :30 Cough absent :30 Secretions no :30 Breath Sounds RUL clear :30 Breath Sounds RML clear :30 Breath Sounds RLL clear :30 Breath Sounds LARISA clear :30 Breath Sounds LLL clear 61-61-690100:30 Airway natural :30 Chest Tube no 15-08-927424:30 Oxygen no 75-26-930179:52 Oxygen Mask Type nasal cannula :18 Oxygen Flow Rate 1 L :30 C-PAP no :30 BI-PAP no :30 Temp >100.4 no : Temp <96.8 no :30 Chills with rigors no : HR > 90bpm no :30 Respirations > 20 no :30 Systolic <90 no : headache stiff neck no : WBC > 47321 no : WBC < 4000 no : Rapid Resp no :30 IV Site Location Left FA :02 IV Type peripheral 20-21-452093:02 IV Site Information discontinued : IV Site Michael 20 : IV Site Appearance WNL : IV Site Color clear : IV Site Patent yes : Dressing Changed no (explain) Comment: dressing remains clean, dry and intact at this time : Dressing Type occlusive : Nursing Note Patient discharged to home at this itme. Her vital signs remained stable and her IV site was discontinued before discharge. She was taken down via wheelchair to her vehicle and she insisted on driving herself home. The patient had not had narcotic medications recently. She denied questions or concerns on discharge. :15 Cognitive Status Finding Observation Time Oriented [...] not applicable :48 Learning Ability comprehends well : Neurological no :26 Psychological no : Physical no :26 Hearing no :26 Coal Inspector Needed no : Sign Language no :26 Emotional yes 63-37-897854:26 Vision yes 56-40-787840:26 Laguage no 71-88-632157:26 Financial no 35-86-982970:26 Vital signs Type Value Date Respiration Rate 18breaths per minute :52 Pulse 67beats per minute :52 Oxygen Saturation 93% :52 BP Systolic 161mmHg :52 BP Diastolic 62mmHg :52 Temperature 97.8F :52 Height 67.5inches :44 Weight 259.0LB 60-62-261207:44 Social history Type Value Smoking Status FORMER SMOKER Treatment Plan No treatment plan text is available for this visit. Hospital discharge instructions Discharge Date/Time 01-18-2015 16:15 Accompanied By Self Dismissal Condition good Disposition on DC home Valuables yes Valuable Type billfold/purse Comment: et cell phone et clothes from home Valuables Returned T patient DC Inst/Educ Give yes Exit Care Educ Given yes Med/Side Effects Rev yes DC Med Rec Rev yes Immun Indicated yes PNE Vac 01/18/2015 Vaccines Ord Given yes Flu Vac Fall 2013 Tetanus Vac unknown Diet Explained yes Follow up appt already scheduled Follow Up Appt D/T 01-23-2015 08:15
--- OUTSIDE RECORDS SUMMARY | 2018-10-10 10:15 | XMS REPORT ---
Author Author [facility] Medical Staff Organization [facility] Address [address] [id number] Phone [phone] Care Team Providers Care Headmaster/Mistress Name Role Phone MELISSA MEDEROS, SANDRA FONG [phone] Summary purpose TRANSITION OF CARE AUTO GENERATION Chief Complaint and Reason for Visit No authorized Reason for Visit (Admitting Diagnosis) is available for this visit. Problem list No authorized problems tracked for continuity of care are available for this visit. Encounters No authorized problems tracked for encounter diagnoses are available for this visit. Medications No home medications recorded for this patient visit Allergies, adverse reactions, alerts Allergen Category Ingredient Status Reaction Severity Onset No Known Drug Allergy No known drug allergies No known drug allergies Confirmed or Verified Immunizations Status Date Not Given Reason Product Series # Effectiveness / Reaction Anesthesia Attending Lot / Expiration Given 01-18-2015 PNEUMOCOCCAL 23-SHARON P-SAC VAC 1 MERCK,SHARP,LYDIA [id number] / 12-20-2015 Relevant diagnostic tests and/or laboratory data RESULTS Reference Lab (Sendout) 84-60-898736:17:00 Result Normal Range Units D-Dimer H 458 0-400 ng/ml History of procedures No procedures recorded for [...]
--- OUTSIDE RECORDS SUMMARY | 2018-10-10 10:16 | XMS REPORT ---
Author Author [facility] [employer] [facility] Medical Staff Organization [facility] Address [address] [id number] Phone [phone] Care Team Providers Care Cracker Off Name Role Phone MELISSA MEDEROS, SANDRA FONG [phone] SANDRA TORRES MD, PP [phone] Summary purpose TRANSITION OF CARE AUTO GENERATION [...] Reason Product Series # Effectiveness / Reaction An/Ssn 2 4 Operator Lot / Expiration Given 01-18-2015 PNEUMOCOCCAL 23-SHARON P-SAC VAC 1 MERCK,SHARP,LYDIA [id number] / 12-20-2015 Relevant diagnostic tests and/or laboratory data RESULTS Routine Urinalysis 71-71-974587:51:00 Result Normal Range Units Color YELLOW Clarity Clear Specific [place] 1.010 1.003-1.035 pH 5.5 4.5-8.0 Glucose 3+ Bilirubin NEGATIVE Ketones NEGATIVE Protein NEGATIVE Urobilinogen 0.2 0-0.2 E.U./dL Nitrites NEGATIVE Blood NEGATIVE Leukocytes 1+ WBCs 5-10 RBCs No RBC's Seen. Squamous Epithelial Few Bacteria Rare Amount Routine Cultures 16-12-224314:59:00 Urine Culture Plate Date and Time 06/04/2015 02:59 SourceURINE CULTURE REPORT >100,000 colonies/ml Mixed Gram Pos Courtney Release Date/Time: 06/05/2015 07:34 CULTURE REPORT >100,000 colonies/ml Mixed Gram Pos Courtney Release Date/Time: 06/06/2015 08:10 Chemistry [id number]:45:00 Result Normal Range Units Sodium 138 134-145 mEq/l Potassium 4.2 3.5-5.1 mEq/l Chloride 105 98-107 mEq/l CO2 26.3 22-28 mEq/l Glucose H 231 70-105 mg/dl BUN 15 7-18 mg/dl Creatinine 0.81 0.6-1.0 mg/dl Calcium L 8.0 8.4-10.2 mg/dl Osmolality 283.9 280-300 mOsm/L Anion GAP L 6.7 8-16 BUN/Creatinine Ratio 18.5 10-20 Estimated GFR 73 >=60 mL/min/1.7 96-30-502249:55:00 Result Normal Range Units Sodium 136 134-145 mEq/l Potassium 4.0 3.5-5.1 mEq/l Chloride 100 98-107 mEq/l CO2 25.8 22-28 mEq/l Glucose H 313 70-105 mg/dl BUN H 22 7-18 mg/dl Creatinine 0.93 0.6-1.0 mg/dl Calcium 8.5 8.4-10.2 mg/dl Osmolality 287.2 280-300 mOsm/L Anion GAP 10.2 8-16 BUN/Creatinine Ratio H 23.7 10-20 Estimated GFR 62 >=60 mL/min/1.7 92-32-144894:00:00 Result Normal Range Units Sodium L 132 [...] Estimated GFR L 49 >=60 mL/min/1.7 Hematology 80-36-385709:45:00 Result Normal Range Units WBC 6.3 4.8-10.8 103/uL RBC 4.5 4.2-5.4 106/uL HGB 12.6 12.0-16.0 g/dl HCT L 36.3 36.9-47.0 % MCV L 80.7 81-99 FL MCH 28.0 27-31 pg MCHC 34.7 33-37 g/dl RDW 12.3 11.5-15.5 % PLT 140 130-400 103/uL MPV H 12.3 7.3-10.4 FL Neutro % H 74.2 40-70 % Lymph % L 13.7 20-40 % Major % 7.9 0-10.0 % Eos % 2.5 0-7.0 % Baso % 1.1 0-2 % Neutro # 4.7 1.5-7.5 103/uL Lymph # 0.9 0.9-4.0 103/uL Major # 0.5 0-0.8 103/uL Eos # 0.2 0-0.6 103/uL Baso # 0.1 0-0.1 103/uL 95-77-423084:55:00 Result Normal Range Units WBC 5.8 4.8-10.8 103/uL RBC 4.6 4.2-5.4 106/uL HGB 13.0 12.0-16.0 g/dl HCT L 36.7 36.9-47.0 % MCV L 79.8 81-99 FL MCH 28.3 27-31 pg MCHC 35.4 33-37 g/dl RDW 12.9 11.5-15.5 % PLT 139 130-400 103/uL MPV H 12.7 7.3-10.4 FL Segs H 75.0 40-70 % Bands 2.0 0-5 % Lymphs 21.0 20-40 % Major 2.0 0-10 % 79-40-661353:00:00 Result Normal Range Units WBC 8.8 4.8-10.8 103/uL RBC 4.8 4.2-5.4 106/uL HGB 13.6 12.0-16.0 g/dl HCT 38.4 36.9-47.0 % MCV L 79.8 81-99 FL MCH 28.3 27-31 pg MCHC 35.4 33-37 g/dl RDW 12.1 11.5-15.5 % PLT 145 130-400 103/uL MPV H 12.1 7.3-10.4 FL Body Fluid 44-23-683449:51:00 Result Normal Range Units pH 5.5 4.5-8.0 Cardiac 95-77-310506:00:00 Result Normal Range Units CK 123 26-192 [...] should be interpreted with caution. Radiology Results 54-32-466848:18:00 CAROTID DUPLEX PACs Image DATE OF EXAM: Jun 03 2015 [id number] CAROTID DUPLEX SONO : RADIOLOGY REPORT DATE [...] stenosis. Antegrade vertebral artery flow bilaterally. MD TANNRE Ellis/pb06/03/2015 16:18:00 / 06/03/2015 19:51:33 cc:Dr. Sandra Torres This document has been electronically Signed by: On: DATE OF EXAM: Jun 03 2015 [id number] CAROTID DUPLEX SONO : RADIOLOGY REPORT DATE [...] measurable stenosis. Antegrade vertebral artery flow bilaterally. Josiah Thorpe MD MWLane/pb06/03/2015 16:18:00 / 06/03/2015 19:51:33 cc:Dr. Sandra Torres This document has been electronically Signed by: JOSIAH THORPE On: Jun 04 20158:18A Result Amended on 2015-06-04 at 08:18:29. Previous status was AL. 22-68-139612:45:00 Result Normal Range Units MPV H 12.3 7.3-10.4 FL 00-35-457661:41:00 MRI BRAIN W/WO CONT PACs Image DATE OF EXAM: Jun 03 2015 MRI 0036-MRI BRAIN W/WO CONTRAST : RADIOLOGY REPORT DATE OF SERVICE: 06/03/15 HISTORY: Syncope, head injury, fall, abnormal CT scan with question of infarct. PRE AND POSTCONTRAST MAGNETIC RESONANCE IMAGING [id number] HOURS Axial, sagittal, and coronal scans were [...] No acute intracranial abnormality. MD TANNER Ellis/ky06/03/2015 12:34: / 06/03/2015 12:47:56 cc:Dr. Sandra Torres This document has been electronically Signed by: On: DATE OF EXAM: Jun 03 2015 MRI 0036-MRI BRAIN W/WO CONTRAST : RADIOLOGY REPORT DATE OF SERVICE: 06/03/15 HISTORY: Syncope, head injury, fall, abnormal CT scan with question of infarct. PRE AND POSTCONTRAST MAGNETIC RESONANCE IMAGING [id number] HOURS Axial, sagittal, and coronal scans were [...] No acute intracranial abnormality. MD TANNER Ellis/ky06/03/2015 12:34: / 06/03/2015 12:47:56 cc:Dr. Sandra Torres This document has been electronically Signed by: JOSIAH THORPE On: Jun 03 20153:41P Result Amended on 2015-06-03 at 15:41:54. Previous status was AL. 55-53-894515:52:00 CT HEAD W/O CONT PACs Image DATE OF EXAM: 2014 [id number] HEAD WO CONTRAST : RADIOLOGY REPORT DATE [...] and without contrast is recommended. MD TANNER Ellis/jmeka06/02/2015 17:37:06/02/2015 18:06:04 cc:Dr Torres This document has been electronically Signed by: On: DATE OF EXAM: 2014 [id number] HEAD WO CONTRAST : RADIOLOGY REPORT DATE [...] and without contrast is recommended. MD TANNER Ellis/jmeka06/02/2015 17:37:06/02/2015 18:06:04 cc:Dr Torres This document has been electronically Signed by: JOSIAH THORPE On: Jun 03 2015 11:52A Result Amended on 2015-06-03 at 11:52:13. Previous status was AL. Chest X-Ray - 2 View PACs Image [...] effusion. IMPRESSION:No acute chest abnormality. MD TANNER Ellis/06/02/2015 17:58:00 / 06/02/2015 21:24:06 cc:Dr. Sandra Torres This document has [...] abnormality. MD TANNER Ellis/jeff06/02/2015 17:58:06/02/2015 21:24:06 cc:Dr. Sadnra Torres This document has been electronically Signed by: JOSIAH THORPE On: Jun 03 2015 11:52A Result Amended on 2015-06-03 at 11:52:22. Previous status was AL. Elbow XRay - 3 View PACs Image DATE OF EXAM: 2014 RAD 0458-ELBOW XRAY-3 VIEW- LEFT: RADIOLOGY REPORT DATE OF SERVICE: 06/02/15 HISTORY:Syncope, fall with injury. LEFT ELBOW 3 VIEWS 1443 HOURS There is no fracture or dislocation.There is no joint effusion.The joint surfaces are smooth. IMPRESSION:Normal elbow. MD TANNER Ellis/jeff06/02/2015 17:59:06/02/2015 21:34:53 cc:Dr. Sandra Torres This document has [...] been electronically Signed by: JOSIAH THORPE On: Jun 03 2015 11:52A Result Amended on 2015-06-03 at 11:52:28. Previous status was AL. RIB XRAYS - UNILAT 3 VIEW PACs Image DATE OF EXAM: 2014 RAD 1308-RIB [id number] VIEW- LEFT: RADIOLOGY REPORT DATE OF SERVICE: [...] On: DATE OF EXAM: 2014 RAD 1308-RIB [id number] VIEW- LEFT: RADIOLOGY REPORT DATE OF SERVICE: 06/02/15 HISTORY:Fall with injury. LEFT RIBS 3 VIEWS 1443 HOURS There is probable nondisplaced fracture of the posterolateral left fourth rib seen only in the upper AP projection.The remaining osseous structures appear intact.There is no pneumothorax or pleural effusion. IMPRESSION:Probable nondisplaced left fourth rib fracture. MD TANNER Ellis/jeff06/02/2015 18:01: / 06/02/2015 21:56:03 cc:Dr. Sandra Torres This document has been electronically Signed by: JOSIAH THORPE On: Jun 03 2015 11:52A Result Amended on 2015-06-03 at 11:52:29. Previous status was AL. 42-74-616395:55:00 Result Normal Range Units MPV H 12.7 7.3-10.4 FL 06-93-436594:00:00 Result Normal Range Units MPV H 12.1 7.3-10.4 FL History of procedures Procedure Code Code Type Description Date Performed Performing Physician 63728 CPT-4 ASSAY OF TROPONIN, QUANT 06-02-2015 AMALIA MERCADO 05448 CPT-4 ASSAY OF CK (CPK) 06-02-2015 AMALIA MERACDO 81523 CPT-4 COMPREHEN METABOLIC PANEL 06-02-2015 AMALIA MERCADO 34121 CPT-4 CREATINE, MB FRACTION 06-02-2015 AMALIA MERCADO 20010 CPT-4 COMPLETE CBC, AUTOMATED 06-02-2015 AMALIA MERCADO 91304 CPT-4 ELECTROCARDIOGRAM, TRACING 06-02-2015 AMALIA MERCADO 26285 CPT-4 X-RAY EXAM OF ELBOW 06-02-2015 AMALIA MERCADO 91886 CPT-4 X-RAY EXAM OF RIBS/CHEST 06-02-2015 AMALIA MERCADO 30968 CPT-4 CHEST X-RAY 06-02-2015 AMALIA MERCADO 50342 CPT-4 VITAL CAPACITY TEST 06-02-2015 SANDRA TORRES 43220 CPT-4 CT HEAD/BRAIN W/O DYE 06-02-2015 AMALIA MERCADO J7030 CPT-4 NORMAL SALINE SOLUTION INFUS 06-02-2015 AMALIA MERCADO J1170 CPT-4 HYDROMORPHONE INJECTION 06-02-2015 AMALIA MERCADO J1815 CPT-4 INSULIN INJECTION 06-02-2015 SANDRA TORRES J1815 CPT-4 INSULIN INJECTION 06-02-2015 SANDRA TORRES J1815 CPT-4 INSULIN INJECTION 06-02-2015 SANDRA TORRES J1170 CPT-4 HYDROMORPHONE INJECTION 06-02-2015 SANDRA TORRES J2405 CPT-4 ONDANSETRON HCL INJECTION 06-02-2015 SANDRA TORRES J1170 CPT-4 HYDROMORPHONE INJECTION 06-02-2015 SANDRA TORRES J1170 CPT-4 HYDROMORPHONE INJECTION 06-02-2015 SANDRA TORRES 96071 CPT-4 ROUTINE VENIPUNCTURE 06-02-2015 AMALIA MERCADO 82771 CPT-4 METABOLIC PANEL TOTAL CA 06-03-2015 SANDRA TORRES 13162 CPT-4 MRI BRAIN W/O & W/DYE 06-03-2015 AMALIA MERCADO A9579 CPT-4 ALISIA-BASE MR CONTRAST NOS,1ML 06-03-2015 SANDRA TORRES 74911 CPT-4 EXTRACRANIAL STUDY 06-03-2015 SANDRA TORRES J1815 CPT-4 INSULIN INJECTION 06-02-2015 SANDRA TORRES J7030 CPT-4 NORMAL SALINE SOLUTION INFUS 06-03-2015 AMALIA MERCADO J7030 CPT-4 NORMAL SALINE SOLUTION INFUS 06-03-2015 AMALIA MERCADO J7030 CPT-4 NORMAL SALINE SOLUTION INFUS 06-03-2015 AMALIA MERCADO J1170 CPT-4 HYDROMORPHONE INJECTION 06-03-2015 AMALIA RICORIZachery J1170 CPT-4 HYDROMORPHONE INJECTION 06-03-2015 AMALIA RICORIZachery J1170 CPT-4 HYDROMORPHONE INJECTION 06-03-2015 AMALIA TRISHARIZachery J1170 CPT-4 HYDROMORPHONE INJECTION 06-03-2015 CHRISTIANO CROUCH J1170 CPT-4 HYDROMORPHONE INJECTION 06-03-2015 CHRISTIANO CROUCH 30864 CPT-4 ROUTINE VENIPUNCTURE 06-03-2015 AMALIA RICORIL 84819 CPT-4 COMPLETE CBC, AUTOMATED 06-03-2015 AMALIA RICORIL 10563 CPT-4 BL SMEAR W/DIFF WBC COUNT 06-03-2015 AMALIA RICORIL 33749 CPT-4 EMERGENCY DEPT VISIT 06-02-2015 AMALIA RICORIL 72580 CPT-4 EMERGENCY DEPT VISIT 06-02-2015 AMALIA RICORIZachery 79819 CPT-4 URINALYSIS, AUTO W/SCOPE 06-04-2015 SANDRA TORRES 82040 CPT-4 COMPLETE CBC W/AUTO DIFF WBC 06-04-2015 SANDRA TORRES 36771 CPT-4 METABOLIC PANEL TOTAL CA 06-04-2015 SANDRA TORRES 21121 CPT-4 URINE CULTURE/COLONY COUNT 06-04-2015 SANDRA TORRES J7030 CPT-4 NORMAL SALINE SOLUTION INFUS 06-04-2015 AMALIA RICORIZachery J2405 CPT-4 ONDANSETRON HCL INJECTION 06-04-2015 AMALIA TRISHARIZachery 78798 CPT-4 ROUTINE VENIPUNCTURE 06-04-2015 CHRISTIANO CROUCH 56589 CPT-4 THER/PROPH/DIAG INJ, IV PUSH 06-02-2015 AMALIA TRISHARIZachery 45756 CPT-4 TX/PRO/DX INJ NEW DRUG ADDON 06-02-2015 AMALIA TRISHARIZachery 52436 CPT-4 TX/PRO/DX INJ NEW DRUG ROLL FINISHER 06-02-2015 AMALIA RICORIZachery 34498 CPT-4 OBSERVATION CARE 06-02-2015 SANDRA TORRES 35463 CPT-4 OBSERVATION CARE 06-02-2015 SANDRA TORRES 40990 CPT-4 OBSERVATION CARE 06-03-2015 SANDRA TORRES 29480 CPT-4 OBSERVATION CARE 06-04-2015 SANDRA TORRES 73603 CPT-4 TX/PRO/DX INJ NEW DRUG ROLL FINISHER 06-02-2015 SANDRA TORRES 24389 CPT-4 TX/PRO/DX INJ NEW DRUG ROLL FINISHER 06-03-2015 SANDRA TORRES 20320 CPT-4 TX/PRO/DX INJ NEW DRUG ROLL FINISHER 06-04-2015 SANDRA TORRES Functional status Functional Status Finding Observation Time [...] :30 Transfers assist x 2 Comment: sba : Ambulation in room :30 Balance unsteady : Bathing Assistance minimal :19 Eating Assistance none :19 Dressing Assistance minimal :19 Toileting Assistance minimal :19 Transfer Assistance minimal :19 Decline Slf Care/Mob no :19 Phys Cond Stable yes :19 Nutrition normal :30 Diet ADA specify calorie 68-70-439311:34 Oral Cavity moist :30 Teeth missing (specify) :30 Dental Hygiene good :30 Abdomen Appearance obese :30 Abdomen soft :30 Bowel Sounds present :30 NG Tube no :30 Feeding Tube none :30 Pinto no :30 Ostomy no :30 Stool Comment: none noted this shift yet : Urination normal :30 Urine Clarity clear :30 Urine Color yellow :30 Quality shallow :30 Cough absent :30 Secretions no :30 Breath Sounds RUL clear :30 Breath Sounds RML clear :30 Breath Sounds RLL clear :30 Breath Sounds LARISA clear :30 Breath Sounds LLL clear :30 Airway natural : Chest Tube no : Oxygen no :21 Oxygen Flow Rate RA :21 C-PAP no :30 BI-PAP no : Temp >100.4 no : Temp <96.8 no : Chills with rigors no : HR > 90bpm no : Respirations > 20 no : Systolic <90 no :30 headache stiff neck no :30 WBC > 01681 no : WBC < 4000 no :30 Rapid Resp no :30 IV Site Location Right outer FA :00 IV Type peripheral :00 IV Site Information discontinued :00 IV Site Start Attmpt 1 times :05 IV Site Michael 20 :00 IV Site Appearance WNL :00 IV Site Color clear :00 IV Site Patent yes :00 Dressing Changed yes :00 Dressing Type gauze :00 Nursing Note Pt states she is still having some pain but went to her follow up appt today with Dr. Torres and they have a plan in place for her pain management.. [id number]:27 Cognitive Status Finding Observation Time Oriented To Date 5 Yes :[address] 5 Yes :19 Name 3 Objects 3 Yes :19 Name Object in Rm 2 Yes :19 Recall 3 Objects 3 Yes :19 Repeats a Phrase 1 Yes : Follows Verbal Direc 3 Yes :19 Follows Written Dire 1 Yes :19 Write a Sentance 1 Yes : Draw an Object 1 Yes :19 Mini Mental Total 25 points :19 Less than 20 Phys not applicable : Learning Ability comprehends well : Neurological no :00 Psychological no :00 Physical yes : Hearing no :00 Medical Scientific Officer Needed no : Sign Language no :00 Emotional yes :00 Vision yes :00 Laguage no :00 Financial no :00 Vital signs Type Value Date Respiration Rate 20breaths per minute :21 Pulse 82beats per minute :21 Oxygen Saturation 92% :21 BP Systolic 121mmHg 59-33-882870:21 BP Diastolic 50mmHg 36-59-912677:21 Temperature 99.4F :21 Height 67.5inches :08 Weight [...] Diet Explained yes Follow up appt already seen Follow Up Appt D/T 06/07/15 328
--- OUTSIDE RECORDS SUMMARY | 2018-10-10 10:16 | XMS REPORT ---
Author Author [facility] Medical Staff Organization [facility] Address [address] [place] [id number] Phone [phone] Summary purpose TRANSITION OF CARE AUTO GENERATION [...] Reason Product Series # Effectiveness / Reaction Quick Mixer Operator Lot / Expiration Given 01-18-2015 PNEUMOCOCCAL 23-SHARON P-SAC VAC 1 MERCK,SHARP,LYDIA [id number] / 12-20-2015 Relevant diagnostic tests and/or laboratory data No authorized results are available for this patient visit History of procedures Procedure Code Code Type Description Date Performed Performing Physician [id number] ICD10 Replacement of Right Lens with Synth Sub, Perc Approach HARMAN LUDWIG 11506 CPT-4 CATARACT SURG W/IOL 1 STAGE 01-15-2016 HARMAN LUDWIG J0171 CPT-4 ADRENALIN EPINEPHRINE INJECT 01-15-2016 HARMAN LUDWIG J2250 CPT-4 INJ MIDAZOLAM HYDROCHLORIDE 01-15-2016 HARMAN LUDWIG J3300 CPT-4 TRIAMCINOLONE A INJ PRS-FREE 01-15-2016 HARMAN LUDWIG J7040 CPT-4 NORMAL SALINE SOLUTION INFUS 01-15-2016 HARMAN LUDWIG J7120 CPT-4 RINGERS LACTATE INFUSION 01-15-2016 HARMAN LUDWIG J7120 CPT-4 RINGERS LACTATE INFUSION 01-15-2016 HARMAN LUDWIG V2632 CPT-4 POST CHMBR INTRAOCULAR LENS 01-15-2016 HARMAN LUDWIG Functional status Functional Status Finding Observation Time Hearing Prob Loc none 93-70-084571:53 Vision Problems yes 06-24-367675:53 Vision Correct Dev glasses :53 Ambulation Asst Dev none 74-14-523994:53 Range of Motion full 63-79-950064:15 Muscle Strength RUE 5 ROM full resist 17-57-900795:15 Muscle Strength RLE 5 ROM full resist 28-72-127342:15 Muscle Strength LUE 5 ROM full resist 99-03-457131:15 Muscle Strength LLE 5 ROM full resist 68-19-065978:15 Transfers assist x 1 54-37-190562:15 Ambulation in room 56-95-709061:15 Balance steady 72-78-220275:15 Bathing Assistance minimal :53 Eating Assistance minimal :53 Dressing Assistance minimal :53 Toileting Assistance minimal :53 Transfer Assistance moderate :53 Decline Slf Care/Mob no :53 Phys Cond Stable yes :53 Nutrition normal 72-46-024545:15 Diet ADA specify calorie 19-23-199800:15 Oral Cavity moist 67-88-133004:15 Teeth missing (specify) 72-91-449163:15 Dental Hygiene good 80-85-885980:15 Abdomen Appearance obese 26-91-845948:15 Abdomen soft 44-22-722654:15 Bowel Sounds present 31-67-014032:15 NG Tube no 59-99-185251:15 Feeding Tube none 83-85-133827:15 Pinto no 65-44-184021:15 Cont Bladder Irr no 45-56-702060:15 Ostomy no 67-21-930758:15 Stool normal Comment: per pt report 83-45-964355:15 Color normal :30 Consistency normal :30 Urination normal Comment: per pt report :15 Urine Clarity clear :30 Urine Color yellow 73-50-119948:30 Quality sym/unlabored 22-76-491154:15 Cough absent 47-04-601275:15 Secretions no 05-84-242802:15 Breath Sounds RUL clear 49-20-640636:15 Breath Sounds RML clear 37-99-095665:15 Breath Sounds RLL clear 59-83-355148:15 Breath Sounds LARISA clear :15 Breath Sounds LLL clear 35-40-359008:15 Airway natural :15 Chest Tube no 85-50-165241:15 Oxygen no 70-66-865388:15 C-PAP no 31-64-113930:15 BI-PAP no :15 Temp >100.4 no 01-82-982568: Temp <96.8 no :15 Chills with rigors no : HR > 90bpm no : Respirations > 20 no : Systolic <90 no : headache stiff neck no : WBC > 57271 no 56-52-302480:30 WBC < 4000 no :30 IV Site Location Rt wrist 93-94-550359:45 IV Type peripheral 42-55-530511:45 IV Site Information discontinued 29-28-474545:45 IV Site Start Attmpt 3 times 69-59-118033:20 IV Site Michael 20 49-84-929022:15 IV Site Appearance WNL 89-52-495328:15 IV Site Color clear 91-21-733186:15 IV Site Patent yes 62-94-845944:15 Dressing Type occlusive 75-76-541942:15 Nursing Note Dismissed per w/c in good condition accompanied by RN and friend. 70-18-503008:55 Cognitive Status Finding Observation Time Oriented To Date 5 Yes :[address] 5 Yes :53 Name 3 Objects 3 Yes :53 Name Object in Rm 2 Yes :53 Recall 3 Objects 3 Yes :53 Repeats a Phrase 1 Yes :53 Follows Verbal Direc 3 Yes :53 Follows Written Dire 1 Yes :53 Write a Sentance 1 Yes :53 Draw an Object 1 Yes :53 Mini Mental Total 25 points :53 Less than 20 Phys not applicable :53 Learning Ability comprehends well :45 Neurological no :45 Psychological no :45 Physical yes 25-58-496653:45 Hearing no :45 Horticultural Specialty Grower Needed no :45 Sign Language no :45 Emotional yes :45 Vision yes :45 Laguage no 85-78-803092:45 Financial no :45 Vital signs Type Value Date Respiration Rate 20breaths per minute 09-64-342683:15 Pulse 79beats per minute : Oxygen Saturation 96% :15 BP Systolic 122mmHg 98-40-186811:15 BP Diastolic 61mmHg 32-25-039932:15 Temperature 98.8F 46-50-293232:15 Height 67.5inches :44 Weight 278LB 71-64-783603:44 Social history No Social History or smoking status observations were recorded for this visit. ( Unknown if ever smoked.) Treatment Plan No treatment plan text is available for this visit. Hospital discharge instructions Discharge Date/Time 01/18/16 10:55 Accompanied By Faith Relationship friend Dismissal Condition good Disposition on DC home Valuables no Valuable Type billfold/purse DC Inst/Educ Give yes Exit Care Educ Given yes Med/Side Effects Rev yes PNE Vac 01/18/2015 Flu Vac 2014 Tetanus Vac 2011 Medical Equipment yes Diet Explained yes Follow up appt appt made (specify) Comment: see Dr Ludwig 01/15/16 at 12:[address] Pulido's office Follow Up Appt D/T 01/15/16 12:45
--- OUTSIDE RECORDS SUMMARY | 2018-10-10 10:16 | XMS REPORT ---
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 Lot / Expiration Given 01-18-2015 PNEUMOCOCCAL 23-SHARON P-SAC VAC 1 MERCK,SHARP,LYDIA [id number] / 12-20-2015 Relevant diagnostic tests and/or laboratory data No authorized results are available for this patient visit History of procedures Procedure Code Code Type Description Date Performed Performing Physician [id number] ICD10 Replacement of Left Lens with Synth Sub, Perc Approach HARMAN LUDWIG 38673 CPT-4 CATARACT SURG W/IOL, 1 STAGE 02-19-2016 HARMAN LUDWIG J0171 CPT-4 ADRENALIN EPINEPHRINE INJECT 02-19-2016 HARMAN LUDWIG J1815 CPT-4 INSULIN INJECTION 02-19-2016 MICKEY ALFARO J2250 CPT-4 INJ MIDAZOLAM HYDROCHLORIDE 02-19-2016 HARMAN LUDWIG J7120 CPT-4 RINGERS LACTATE INFUSION 02-19-2016 HARMAN LUDWIG V2632 CPT-4 POST CHMBR INTRAOCULAR LENS 02-19-2016 HARMAN LUDWIG Functional status Functional Status Finding Observation Time Hearing Prob Loc none 22-66-600048:26 Vision Problems yes 00-34-502188:26 Vision Correct Dev glasses : Ambulation Asst Dev cane :26 Range of Motion full 04-59-068152: Muscle Strength RUE 5 ROM full resist 54-14-434521:00 Muscle Strength RLE 5 ROM full resist :00 Muscle Strength LUE 5 ROM full resist 76-94-733144:00 Muscle Strength LLE 5 ROM full resist 32-30-566754:00 Transfers assist x 1 80-25-830524: Ambulation in room 58-25-653918: Balance steady : Bathing Assistance minimal : Eating Assistance minimal : Dressing Assistance minimal : Toileting Assistance minimal : Transfer Assistance moderate : Decline Slf Care/Mob no :26 Phys Cond Stable yes : Nutrition normal 90-42-644297: Diet ADA specify calorie 74-11-318615:00 Oral Cavity moist and intact 02-12-472477: Teeth missing (specify) 04-13-354711: Dental Hygiene good 98-59-263151: Abdomen Appearance obese 49-07-240511:00 Abdomen non-tender 59-25-468000:00 Bowel Sounds present 24-82-612091:00 NG Tube no 12-33-452882:00 Feeding Tube none 51-37-158503:00 Pinto no 99-75-205459:00 Cont Bladder Irr no 17-58-161448:00 Ostomy no 33-45-663138:00 Stool normal 89-24-196762:00 Urination normal 23-75-231774:00 Quality sym/unlabored 39-59-745028: Cough absent 81-80-710398:00 Secretions no 82-49-055872:00 Breath Sounds RUL clear 56-40-212118:00 Breath Sounds RML clear 55-90-234688:00 Breath Sounds RLL clear 53-91-995031:00 Breath Sounds LARISA clear 06-25-599030:00 Breath Sounds LLL clear 66-73-477580:00 Airway natural 82-35-138584:00 Chest Tube no :00 Oxygen no :15 C-PAP no :00 BI-PAP no : Temp >100.4 no : Temp <96.8 no :00 Chills with rigors no : HR > 90bpm no : Respirations > 20 no : Systolic <90 no : headache stiff neck no :00 IV Site Location right forearm 42-63-136163:25 IV Type peripheral : IV Site Information discontinued : IV Site Start Attmpt 2 times Comment: pt did not want Lidocaine 72-65-056274:10 IV Site Michael 22 89-45-623160:25 IV Site Appearance WNL 97-76-562937:25 IV Site Color clear : IV Site Patent yes 35-82-574057:25 Dressing Type occlusive 44-50-106837:25 Nursing Note pt dismissed from the unit in stable condition. personal belongings and dc paperwork in hand. friend to drive her home. :30 Cognitive Status Finding Observation Time Learning Ability comprehends well 70-54-044657:25 Neurological no 78-99-849815:25 Psychological no 80-56-368435:25 Physical no 62-78-933335:25 Hearing no :25 Rn Surgery Icu Needed no :25 Sign Language no 81-91-669687:25 Emotional yes :25 Vision yes :25 Laguage no 63-63-538135:25 Financial no :25 Vital signs Type Value Date Respiration Rate 20breaths per minute 61-96-971732: Pulse 75beats per minute :15 Oxygen Saturation 97% :15 BP Systolic 135mmHg 46-38-907657:15 BP Diastolic 64mmHg 71-86-970594:15 Temperature 97.6F 52-11-866504:00 Height 67.5inches 56-61-402561:24 Weight 290LB 55-92-687138:24 Social history Type Value Smoking Status FORMER [...] appt already seen Follow Up Appt D/T 02/19/16 8257
--- OUTSIDE RECORDS SUMMARY | 2018-10-10 10:16 | XMS REPORT ---
Author Author [facility] Medical Staff Organization [facility] Address [address] [id number] Phone [phone] Care Team Providers Care Long Goods Drier Name Role Phone CHRISTIANO BOSWELL PP [phone] Summary purpose TRANSITION OF CARE AUTO GENERATION [...] Reason Product Series # Effectiveness / Reaction Service Now Developer Lot / Expiration Given 01-18-2015 PNEUMOCOCCAL 23-SHARON P-SAC VAC 1 MERCK,SHARP,LYDIA [id number] / 12-20-2015 Relevant diagnostic tests and/or laboratory data RESULTS Radiology Results 71-47-166812:15:00 CAROTID DUPLEX PACs Image DATE OF EXAM: Jan 17 2016 [id number] CAROTID DUPLEX SONO : RADIOLOGY REPORT DATE [...] Antegrade vertebral artery flow bilaterally. MD TANNER Ellis/ca01/17/2016 11:42:00 / 01/17/2016 12:01:43 cc:Christiano Crouch PA-C This document has been electronically Signed by: On: DATE OF EXAM: Jan 17 2016 [id number] CAROTID DUPLEX SONO : RADIOLOGY REPORT DATE [...] Antegrade vertebral artery flow bilaterally. MD TANNER Ellis/ca01/17/2016 11:42:00 / 01/17/2016 12:01:43 cc:Christiano Crouch PA-C This document has been electronically Signed by: JOSIAH PRICE MD On: Jan 17 20162:15P Result Amended on 2016-01-17 at 14:15:20. Previous status was IA. History of procedures Procedure Code Code Type Description Date Performed Performing Physician 68613 CPT-4 EXTRACRANIAL BILAT STUDY 01-17-2016 CHRISTIANO CROUCH Functional status No functional or [...]
--- OUTSIDE RECORDS SUMMARY | 2018-10-10 10:18 | XMS REPORT ---
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 Functional status Functional Status Finding Observation Time Hearing Prob Loc none :53 Vision Problems yes 61-76-977279:53 Vision Correct Dev glasses 25-49-838613:53 Ambulation Asst Dev none 55-04-155586:53 Range of Motion full 46-89-486975:15 Muscle Strength RUE 5 ROM full resist 66-74-142385:15 Muscle Strength RLE 5 ROM full resist 32-49-110973:15 Muscle Strength LUE 5 ROM full resist 63-72-505432:15 Muscle Strength LLE 5 ROM full resist 41-91-295001:15 Transfers assist x 1 76-22-788400:15 Ambulation in room 04-16-441378:15 Balance steady 56-63-710886:15 Bathing Assistance minimal 16-21-657482:53 Eating Assistance minimal 38-32-631321:53 Dressing Assistance minimal 00-90-282377:53 Toileting Assistance minimal 19-32-324657:53 Transfer Assistance moderate 45-48-160841:53 Decline Slf Care/Mob no 41-82-262996:53 Phys Cond Stable yes :53 Nutrition normal 33-64-394130:15 Diet ADA specify calorie 48-88-979848:15 Oral Cavity moist 52-77-650341:15 Teeth missing (specify) 38-76-905864:15 Dental Hygiene good 57-53-664362:15 Abdomen Appearance obese 89-56-847993:15 Abdomen soft 69-21-308224:15 Bowel Sounds present 87-05-588728:15 NG Tube no 78-85-227155:15 Feeding Tube none 37-32-783464:15 Pinto no 92-51-729982:15 Cont Bladder Irr no 82-71-148145:15 Ostomy no :15 Stool normal Comment: per pt report :15 Color normal :30 Consistency normal :30 Urination normal Comment: per pt report :15 Urine Clarity clear :30 Urine Color yellow 07-60-615136:30 Quality sym/unlabored 89-06-575102:15 Cough absent 34-57-901413:15 Secretions no :15 Breath Sounds RUL clear :15 Breath Sounds RML clear 73-94-157941:15 Breath Sounds RLL clear 86-48-011698:15 Breath Sounds LARISA clear 46-72-955625:15 Breath Sounds LLL clear 47-08-374914:15 Airway natural 06-99-161969:15 Chest Tube no 38-33-827219:15 Oxygen no 34-03-197689:15 C-PAP no 78-68-360203:15 BI-PAP no 56-33-246980:15 Temp >100.4 no :15 Temp <96.8 no :15 Chills with rigors no 70-76-110153:15 HR > 90bpm no :15 Respirations > 20 no 69-86-278944:15 Systolic <90 no 50-48-066861:15 headache stiff neck no 55-84-246111:15 WBC > 47263 no 61-84-267786:30 WBC < 4000 no 97-02-865740:30 IV Site Location Rt wrist 78-88-339057:45 IV Type peripheral 33-97-449297:45 IV Site Information discontinued 29-96-633753:45 IV Site Start Attmpt 3 times 11-24-681609:20 IV Site Michael 20 48-62-607329:15 IV Site Appearance WNL 42-90-642840:15 IV Site Color clear :15 IV Site Patent yes 93-23-095598:15 Dressing Type occlusive 07-71-890254:15 Nursing Note Dismissed per w/c in good condition accompanied by RN and friend. :55 Cognitive Status Finding Observation Time Oriented To [...] no :45 Psychological no :45 Physical yes 68-35-648074:45 Hearing no 31-25-875241:45 Hot Punch Press Operator Needed no 16-53-502153:45 Sign Language no :45 Emotional yes :45 Vision yes :45 Laguage no :45 Financial no :45 Vital signs Type Value Date Respiration Rate 20breaths per minute 99-20-590300:15 Pulse 79beats per minute :15 Oxygen Saturation 96% 03-82-826574:15 BP Systolic 122mmHg 46-03-925832:15 BP Diastolic 61mmHg 14-33-231211:15 Temperature 98.8F 23-76-328097:15 Height 67.5inches 59-54-865140:44 Weight 278LB 30-68-274860:44 Social history No Social History or smoking [...] appt appt made (specify) Comment: see Dr Ha 01/15/16 at 12:[address] Pulido's office Follow Up Appt D/T 01/15/16 12:45
--- OUTSIDE RECORDS SUMMARY | 2018-10-10 10:18 | XMS REPORT | Referral Summary ---
Author Author [facility] Organization [facility] Address Unknown Phone Unavailable Encounter WENCESLAO [id number] Date(s): 02/20/15 - 02/25/15 [facility] [address] [place] [address] [phone] Final: CORONARY ATHEROSCLEROSIS OF [place] CORONARY ARTERY Final: HYPOSMOLALITY AND/OR HYPONATREMIA Final: Diabetes mellitus without mention of complication, type II or unspecified type, uncontrolled Final: Myalgia and myositis, unspecified Final: Chronic total occlusion of coronary artery Final: Dysthymic disorder Final: UNSPECIFIED IDIOPATHIC PERIPHERAL NEUROPATHY Final: HYPOTENSION, UNSPECIFIED Final: OTHER AND UNSPECIFIED HYPERLIPIDEMIA Final: HYPERPOTASSEMIA Final: POSTSURGICAL AORTOCORONARY BYPASS STATUS Final: OTHER CHEST PAIN Discharge Disposition: 01-Home or Self Care Attending Physician: Mary Pineda MD Admitting Physician: Tr White MD Vital Signs Most recent to 1 oldest [Reference Range]: Temperature Oral 36.5 degC [35.8-37.3 degC] (02/25/15 11:37 AM) Temperature Rectal 36.9 degC [36.3-37.8 degC] (02/23/15 9:47 AM) Temperature Temporal 36.4 degC Artery [36.3-37.8 (02/22/15 8:00 AM) degC] Peripheral Pulse 68 bpm Rate [60-100 bpm] (02/25/15 11:34 AM) Heart Rate Monitored 62 bpm [60-100 bpm] (02/22/15 2:00 PM) Respiratory Rate 18 br/min [14-20 br/min] (02/25/15 9:11 AM) Blood Pressure 111/63 mmHg [90-140/60-90 mmHg] (02/25/15 11:34 AM) Mean Arterial 78 mmHg Pressure, Cuff (02/22/15 2:00 PM) SpO2 95 % (02/25/15 11:34 AM) Problem List Condition Effective Dates Status Health Status Informant Acute Active pain(Confirmed) Anxiety(Confirmed) Active patient At risk for Active injury(Confirmed)1 At risk for unstable Active blood glucose level(Confirmed)2 Bleeding Active precautions(Confirme d)3 CAD (coronary artery Active patient disease)(Confirmed) Depression(Confirmed Active patient ) DM (diabetes Active patient mellitus)(Confirmed) Hyperlipidemia(Confi Active patient rmed) HTN Active patient (hypertension)(Confi rmed) Cellulitis and Active patient abscess(Confirmed) Tobacco Active patient user(Confirmed) 1Problem added automatically by system based on initiation of Risk for Injury Plan of Care 2Problem added automatically by system based on initiation of At Risk for Unstable Blood Glucose Plan of Care 3Problem added automatically by system based on initiation of Bleeding Precautions Plan of Care Allergies, Adverse Reactions, Alerts No Known Allergies Medications ALPRAZolam 0.25 mg, Oral, TID, as needed for anxiety, 0 Refill(s) Start Date: 02/20/15 Status: Ordered aspirin 325 mg oral tablet 1 tabs, Oral, Daily, 0 Refill(s) Start Date: 02/25/15 Status: Ordered calcium/magnesium/copper/zinc supplement calcium/magnesium/copper/zinc supplement, See Instructions, 1 tab oral daily, 0 Refill(s) Start Date: 02/20/15 Status: Ordered CeleXA 40 mg, Oral, Daily, 0 Refill(s) Start Date: 02/20/15 Status: Ordered Cymbalta 50 mg, Oral, Daily, 0 Refill(s) Start Date: 02/20/15 Status: Ordered Fish Oil 500 mg oral capsule 1 caps, Oral, Daily, 0 Refill(s) Start Date: 02/20/15 Status: Ordered folic acid 1 mg, Oral, Daily, 0 Refill(s) Start Date: 02/20/15 Status: Ordered insulin lispro 100 units/mL subcutaneous solution 20 units, SubCutaneous, TIDWM, # 15 mL, 1 Refill(s) Start Date: 02/25/15 Status: Ordered Levemir 100 units/mL subcutaneous solution 25 units, SubCutaneous, Bedtime (once a day), # 15 mL, 1 Refill(s) Start Date: 02/25/15 Status: Ordered Lipitor 40 mg oral tablet 1 tabs, Oral, Bedtime (once a day), # 90 tabs, 3 Refill(s) Start Date: 02/25/15 Status: Ordered lisinopril 2.5 mg oral tablet 1 tabs, Oral, Daily, # 90 tabs, 3 Refill(s) Start Date: 02/25/15 Status: Ordered Lyrica 50 mg, Oral, TID, 0 Refill(s) Start Date: 02/20/15 Status: Ordered MiraLax 17 g, Oral, Daily, Constipation, 0 Refill(s) Start Date: 02/20/15 Status: Ordered multivitamin See Instructions, 1 tab oral daily, 0 Refill(s) Start Date: 02/20/15 Status: Ordered nitroglycerin 0.4 mg sublingual tablet 1 tabs, SubLingual, q5min, Angina/Chest Pain, # 8,640 tabs, 0 Refill(s) Start Date: 02/25/15 Status: Ordered oxyCODONE 10 mg, Oral, QID, 0 Refill(s) Start Date: 02/20/15 Status: Ordered Plavix 75 mg oral tablet 1 tabs, Oral, Daily, # 90 tabs, 3 Refill(s) Start Date: 02/25/15 Status: Ordered traZODone 200 mg, Oral, Bedtime (once a day), 0 Refill(s) Start Date: 02/20/15 Status: Ordered Results Hematology Most recent to 1 oldest [Reference Range]: WBC [4.8-10.8 6.7 10*3/uL 10*3/uL] (02/24/15 6:27 AM) RBC [4.00-5.20 4.61 10*6/uL 10*6/uL] (02/24/15 6:27 AM) Hgb [12.0-16.0 12.7 gm/dL gm/dL] (02/24/15 6:27 AM) Hct [37.0-47.0 %] 36.2 % *LOW* (02/24/15 6:27 AM) MCV [82.0-99.0 fL] 78.5 fL *LOW* (02/24/15 6:27 AM) MCH [27.0-32.0 pg] 27.5 pg (02/24/15 6:27 AM) MCHC [32.0-36.0 35.1 gm/dL gm/dL] (02/24/15 6:27 AM) RDW [11.5-14.5 %] 14.0 % (02/24/15 6:27 AM) Platelet [150-400 147 10*3/uL 10*3/uL] *LOW* (02/24/15 6:27 AM) MPV [9.4-12.4 fL] 11.8 fL (02/24/15 6:27 AM) Coagulation Most recent to 1 oldest [Reference Range]: INR [0.9-1.2] 1.1 (02/21/15 9:59 AM) PTT [25.0-35.0] 152.4 1 *HHI* (02/21/15 4:32 PM) 1Result Comment: Critical value called, and read-back verified. Called to Rachel Badillo 02/21/2015 18:02 Chemistry Most recent to 1 oldest [Reference Range]: Sodium Lvl [136-144 133 mEq/L mEq/L] *LOW* (02/23/15 6:34 AM) Potassium Lvl 4.7 mEq/L [3.6-5.1 mEq/L] (02/23/15 6:34 AM) Chloride [99-109 102 mEq/L mEq/L] (02/23/15 6:34 AM) CO2 [22-32 mEq/L] 25 mEq/L (02/23/15 6:34 AM) AGAP [3-20] 6 (02/23/15 6:34 AM) BUN [4-20 mg/dL] 44 mg/dL *HI* (02/23/15 6:34 AM) Glucose Lvl [70-100 206 mg/dL mg/dL] *HI* (02/23/15 6:34 AM) Creatinine Lvl 1.26 mg/dL [0.44-1.03 mg/dL] *HI* (02/23/15 6:34 AM) eGFR [>60] 44 1 *ABN* (02/23/15 6:34 AM) Calcium Lvl 8.2 mg/dL [8.6-10.0 mg/dL] *LOW* (02/23/15 6:34 AM) Magnesium Lvl 2.0 mg/dL [1.8-2.5 mg/dL] (02/23/15 6:34 AM) Total CK [38-234 61 unit/L unit/L] (02/21/15 12:15 AM) CKMB Mass [0.0-6.3] 1.5 (02/21/15 12:15 AM) CKMB Index [0.0-2.5 2.5 % %] (02/21/15 12:15 AM) Troponin [<0.06 0.07 ng/mL 2 ng/mL] *HHI* (02/22/15 9:28 AM) Activated Clotting 171 Time NPT [100-146] *HI* (02/21/15 2:30 PM) Blood Glucose, 269 mg/dL Capillary [74-106 *HI* mg/dL] (02/25/15 12:39 PM) Chol [0-200 mg/dL] 162 mg/dL (02/21/15 4:20 AM) Trig [0-150 mg/dL] 139 mg/dL (02/21/15 4:20 AM) HDL [>40 mg/dL] 33 mg/dL *ABN* (02/21/15 4:20 AM) LDL [0-100 mg/dL] 101 mg/dL *HI* (02/21/15 4:20 AM) VLDL Cholesterol 28 mg/dL [0-30 mg/dL] (02/21/15 4:20 AM) Cardiac Risk 4.9 [0.0-5.0] (02/21/15 4:20 AM) TSH with Reflex Free 2.45 T4 [0.35-5.50] (02/21/15 4:20 AM) Hgb A1c [4.1-5.6 %] 11.2 % *HI* (02/21/15 9:59 AM) eAvg Glucose 274.7 mg/dL (02/21/15 9:59 AM) 1Result Comment: Multiply eGFR results by 1.21 for race. 2Result Comment: Critical value called, and read-back verified. Called to Angi Finley RN [facility] 02/22/2015 10:21 Urinalysis Most recent to 1 oldest [Reference Range]: UA Color Yellow (02/22/15 5:32 PM) UA Appear Clear (02/22/15 5:32 PM) UA pH [5.0-8.0] 5.0 (02/22/15 5:32 PM) UA Leuk Est Pos 1+ [Negative] *ABN* (02/22/15 5:32 PM) UA Nitrite Negative [Negative] (02/22/15 5:32 PM) UA Protein Negative [Negative] (02/22/15 5:32 PM) UA Glucose Trace [Negative] *ABN* (02/22/15 5:32 PM) UA Ketones Negative [Negative] (02/22/15 5:32 PM) UA Urobilinogen Negative [<1.0] (02/22/15 5:32 PM) UA Bili [Negative] Negative (02/22/15 5:32 PM) UA Blood [Negative] Negative (02/22/15 5:32 PM) UA Spec Grav >=1.045 [1.003-1.030] *ABN* (02/22/15 5:32 PM) Type Clean Catch (02/22/15 5:32 PM) UA WBC [0-4] 5-10 *ABN* (02/22/15 5:32 PM) UA RBC [0-2] 0-2 (02/22/15 5:32 PM) Epithelial Cells 5-10 (02/22/15 5:32 PM) UA Bacteria Rare (02/22/15 5:32 PM) Microbiology Reports TEST: Urine Culture STATUS: Auth (Verified) BODY SITE: SOURCE: Urine COLLECTED DATE/TIME: 02/22/15 5:32 PM Urine Culture Mixed jt indicative of vaginal and/or skin contamination TEST: Blood Culture STATUS: Auth (Verified) BODY SITE: SOURCE: Blood COLLECTED DATE/TIME: 02/22/15 10:44 AM Blood Culture No growth after 5 days of incubation. TEST: Blood Culture STATUS: Auth (Verified) BODY SITE: SOURCE: Blood COLLECTED DATE/TIME: 02/22/15 10:24 AM Blood Culture No growth after 5 days of incubation. Immunizations No data available for this section Procedures Procedure Date Related Diagnosis Body Site CABG - Coronary artery bypass graft section Cholecystectomy Colonoscopy Social History Social History Type Response Smoking Status Former smoker1 1quit 4 years ago Assessment and Plan No data available for this section
--- OUTSIDE RECORDS SUMMARY | 2018-10-10 10:18 | XMS REPORT ---
Author Author [facility] Medical Staff Organization 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
--- OUTSIDE RECORDS SUMMARY | 2018-10-10 10:18 | XMS REPORT ---
Author Author [facility] Medical Staff Organization [facility] Address [address] [id number] Phone [phone] Care Team Providers Care Drum Sealer Name Role Phone MELISSA MEDEROS, SANDRA FONG [phone] SANDRA BRUNNER MD, PP [phone] Summary purpose TRANSITION OF CARE AUTO GENERATION [...] 35 unit(s) subcutaneous 3 xDaily with Meals [phone] Current oxycodone 10 mg tablet 1-2 oral [...] Reason Product Series # Effectiveness / Reaction Wildlife Photographer Lot / Expiration Given 01-18-2015 PNEUMOCOCCAL 23-SHARON P-SAC VAC 1 MERCK,SHARP,LYDIA [id number] / 12-20-2015 Relevant diagnostic tests and/or laboratory data RESULTS 66-25-152429:55:00 Discharge Summary DISCHARGE SUMMARY HISTORY OF PRESENT [...] was seen on October [address] Rehman for a parenchyma of the left great toe with callous, which was incised and drained and callous removed by Dr. Rehman with instructions on dressing. The patient was [...] Aldana/cdj10/30/2015 13:55:00/10/30/2015 14:25:01 Clinic Code: [facility] [address] [address] <END HEADER> 50-77-075205:30:00 Progress Note PROGRESS NOTE 10/29/2015 17:30:34 S:The [...] Bruce/michael10/29/2015 17:30:34/10/29/2015 18:16:43 [facility]: [facility] [address] [place] [address]<END HEADER> 25-73-130866:52:00 Progress Note PROGRESS NOTE 10/28/2015 13:52:56 S: [...] BMP in the morning. Sandra Brunner MD BURSAR/lisha 10/28/2015 13:52:56/10/28/2015 13:56:46 Clinic Code: [facility] [address] [place] [address]<END HEADER> 54-85-060592:50:00 Progress Note PROGRESS NOTE 10/27/2015 11:50:33 S: [...] she may have one today. Yesterday, Dr. Rehman was able to see her and he [...] an appointment to follow up with Dr. Rehman this week. O: VITAL SIGNS: Temperature is [...] well. ART Arrieta/michael10/27/2015 11:50:33/10/27/2015 15:19:14 Clinic Code: 53206 cc[facility] [address] [place] [address]<END HEADER> 23-01-709667:41:00 Progress Note PROGRESS NOTE 10/26/2015 09:41:25 S: [...] physical therapy.I am going to consult Dr. Rehman due to the patient's foot ulcer. I am going to administer Dulcolax oral again this morning. If no bowel movement, we will administer Dulcolax suppository today. I am also going to leave an order for him milk of magnesia as needed as well. ART Arrieta/mason 10/26/2015 09:41:25/10/26/2015 10:29:27 Clinic Code: 29251 cc: [facility] [address] [place] [address]<END HEADER> 82-31-772056:37:00 Progress Note PROGRESS NOTE 10/25/2015 09:37:55 S: [...] ART Arrieta/mason 10/25/2015 09:37:55/10/25/2015 13:30:25 Clinic Code: 30706 cc: [facility] [address] [place] [address]<END HEADER> 33-75-335917:07:00 Progress Note PROGRESS NOTE 10/24/2015 15:07:55 S: [...] 10/24/2015 15:07:55/10/24/2015 15:10:56 Clinic Code: cc: <START [facility] [address] [address]<END HEADER> 06-23-132668:19:00 Progress Note PROGRESS NOTE 10/23/2015 09:19:19 S: [...] Aldana/lisha 10/23/2015 09:19:19/10/23/2015 09:35:20 Clinic Code: cc: <[facility] [address] [address]<END HEADER> 05-37-554187:07:00 Progress Note PROGRESS NOTE 10/22/2015 14:07:32 S: [...] Levaquin 500 mg daily. Sandra Brunner MD /in 10/22/2015 14:07:32/10/22/2015 14:18:55 Clinic Code: [facility]: [facility] [address] [place] [address]<END HEADER> Routine Urinalysis 54-01-769379:17:00 Result Normal Range Units Color YELLOW Clarity Clear Specific Adkins 1.020 1.003-1.035 pH 6.0 4.5-8.0 Glucose 3+ Bilirubin NEGATIVE Ketones NEGATIVE Protein NEGATIVE Urobilinogen 0.2 0-0.2 E.U./dL Nitrites NEGATIVE Blood NEGATIVE Leukocytes NEGATIVE WBCs 0-5 RBCs 5-10 Squamous Epithelial Few Bacteria Rare Amount Blood Cultures 06-74-137187:08:00 Blood Culture Plate Date and Time 10/21/2015 18:17 SourceBLOOD CULTURE REPORT NoGrowth at 1 day. Unless otherwise notified. Final report in 5 Days. Release Date/Time: 10/23/2015 08:34 LEFT HAND CULTURE REPORT No growth in 5 days. Release Date/Time: 10/27/2015 07:18 LEFT HAND [id number]:03:00 Blood Culture Plate Date and Time 10/21/2015 18:15 SourceBLOOD CULTURE REPORT NoGrowth at 1 day. Unless otherwise notified. Final report in 5 Days. Release Date/Time: 10/23/2015 08:33 RIGHT A/C CULTURE REPORT No growth in 5 days. Release Date/Time: 10/27/2015 07:18 RIGHT A/C Routine Cultures [id number]:17:00 Urine Culture Plate Date and Time 10/22/2015 01:17 SourceURINE CULTURE REPORT >100,000 colonies/ml Mixed Gram Pos Courtney Release Date/Time: 10/23/2015 07:32 CULTURE REPORT >100,000 colonies/ml Mixed Gram Pos Courtney No Further Work Up Release Date/Time: 10/24/2015 07:17 Chemistry 07-30-258740:25:00 Result Normal Range Units Sodium 136 134-145 mEq/l Potassium 4.6 3.5-5.1 mEq/l Chloride 102 98-107 mEq/l CO2 H 28.8 22-28 mEq/l Glucose H 215 70-105 mg/dl BUN H 22 7-18 mg/dl Creatinine 0.90 0.6-1.0 mg/dl Calcium 8.8 8.4-10.2 mg/dl Osmolality 281.8 280-300 mOsm/L Anion GAP L 5.2 8-16 BUN/Creatinine Ratio H 24.4 10-20 Estimated GFR 64 >=60 mL/min/1.7 94-56-369508:40:00 Result Normal Range Units Sodium 137 134-145 [...] 10-20 Estimated GFR L 56 >=60 mL/min/1.7 19-96-588140:11:00 Result Normal Range Units Sodium 140 134-145 mEq/l Potassium 4.2 3.5-5.1 mEq/l Chloride 103 98-107 mEq/l CO2 27.4 22-28 mEq/l Glucose H 137 70-105 mg/dl BUN H 19 7-18 mg/dl Creatinine 0.80 0.6-1.0 mg/dl Calcium 8.7 8.4-10.2 mg/dl Osmolality 283.8 280-300 mOsm/L Anion GAP 9.6 8-16 BUN/Creatinine Ratio H 23.8 10-20 Estimated GFR 74 >=60 mL/min/1.7 49-43-343360:10:00 Result Normal Range Units Sodium 138 134-145 mEq/l Potassium 4.4 3.5-5.1 mEq/l Chloride 103 98-107 mEq/l CO2 27.6 22-28 mEq/l Glucose H 221 70-105 mg/dl BUN H 19 7-18 mg/dl Creatinine 0.80 0.6-1.0 mg/dl Calcium 8.8 8.4-10.2 mg/dl Osmolality 284.7 280-300 mOsm/L Anion GAP L 7.4 8-16 BUN/Creatinine Ratio H 23.8 10-20 Estimated GFR 74 >=60 mL/min/1.7 95-59-400243:40:00 Result Normal Range Units Sodium 141 134-145 mEq/l Potassium 4.0 3.5-5.1 mEq/l Chloride 102 98-107 mEq/l CO2 H 28.7 22-28 mEq/l Glucose H 209 70-105 mg/dl BUN 13 7-18 mg/dl Creatinine 0.94 0.6-1.0 mg/dl Calcium L 8.1 8.4-10.2 mg/dl Osmolality 287.5 280-300 mOsm/L Anion GAP 10.3 8-16 BUN/Creatinine Ratio 13.8 10-20 Estimated GFR 61 >=60 mL/min/1.7 80-07-202634:03:00 Result Normal Range Units Sodium 136 134-145 [...] Estimated GFR L 41 >=60 mL/min/1.7 Hematology 05-14-690845:40:00 Result Normal Range Units WBC 6.7 4.8-10.8 103/uL RBC 4.9 4.2-5.4 106/uL HGB 13.5 12.0-16.0 g/dl HCT 40.8 36.9-47.0 % MCV 82.8 81-99 FL MCH 27.4 27-31 pg MCHC 33.1 33-37 g/dl RDW 13.1 11.5-15.5 % PLT 168 130-400 103/uL MPV H 11.3 7.3-10.4 FL Neutro % 67.6 40-70 % Lymph % L 18.8 20-40 % Holt % 8.7 0-10.0 % Eos % 3.0 0-7.0 % Baso % 1.3 0-2 % Neutro # 4.5 1.5-7.5 103/uL Lymph # 1.3 0.9-4.0 103/uL Holt # 0.6 0-0.8 103/uL Eos # 0.2 0-0.6 103/uL Baso # 0.1 0-0.1 103/uL 85-60-115282:11:00 Result Normal Range Units WBC 6.5 4.8-10.8 103/uL RBC 4.8 4.2-5.4 106/uL HGB 13.3 12.0-16.0 g/dl HCT 39.8 36.9-47.0 % MCV 83.4 81-99 FL MCH 27.9 27-31 pg MCHC 33.4 33-37 g/dl RDW 13.2 11.5-15.5 % PLT 153 130-400 103/uL MPV H 12.1 7.3-10.4 FL Neutro % 69.9 40-70 % Lymph % L 16.7 20-40 % Holt % 8.3 0-10.0 % Eos % 2.8 0-7.0 % Baso % 1.1 0-2 % Neutro # 4.5 1.5-7.5 103/uL Lymph # 1.1 0.9-4.0 103/uL Holt # 0.5 0-0.8 103/uL Eos # 0.2 0-0.6 103/uL Baso # 0.1 0-0.1 103/uL 81-00-226421:10:00 Result Normal Range Units WBC 7.2 4.8-10.8 103/uL RBC 4.6 4.2-5.4 106/uL HGB 12.9 12.0-16.0 g/dl HCT 39.3 36.9-47.0 % MCV 84.7 81-99 FL MCH 27.8 27-31 pg MCHC L 32.8 33-37 g/dl RDW 13.4 11.5-15.5 % PLT 151 130-400 103/uL MPV H 11.4 7.3-10.4 FL 74-44-143632:40:00 Result Normal Range Units WBC 7.1 4.8-10.8 [...] 0-5 % Lymphs L 18.0 20-40 % Holt 8.0 0-10 % Eos 3.0 0-7 % Atypical Lymphs 3.0 0-5 % Special Chemistry 21-32-070407:03:00 Result Normal Range Units Hemoglobin A1C H 11.0 4.5-6.2 % Body Fluid 31-02-029592:17:00 Result Normal Range Units pH 6.0 4.5-8.0 Radiology Results 92-55-749647:35:00 Chest X-Ray - 2 View PACs Image [...] on 2015-10-28 at 11:35:09. Previous status was CA. PN 81-87-964261:40:00 Result Normal Range Units MPV H 11.3 7.3-10.4 FL 84-72-225295:11:00 Result Normal Range Units MPV H 12.1 7.3-10.4 FL 20-46-937449:10:00 Result Normal Range Units MPV H 11.4 7.3-10.4 FL 42-76-821334:46:00 Chest X-Ray - 2 View PACs Image [...] IMPRESSION: No acute chest abnormality. MD TANNER Ellis/in10/23/2015 08:14:00 / 10/23/2015 08:32:05 cc:Dr. Sandra Brunner [...] IMPRESSION: No acute chest abnormality. MD TANNER Ellis/in10/23/2015 08:14:00 / 10/23/2015 08:32:05 cc:Dr. Sandra Brunner This document has been electronically Signed by: JOSIAH PRICE MD On: Oct 23 20159:46A PN Result Amended on 2015-10-23 at 09:46:22. Previous status was CA. PN 86-95-973317:13:00 Chest X-Ray - 2 View PACs Image [...] on 2015-10-22 at 12:13:45. Previous status was CA. PN 41-54-646891:40:00 Result Normal Range Units MPV H 11.2 7.3-10.4 FL 40-97-006556:03:00 Result Normal Range Units MPV H 11.7 7.3-10.4 FL History of procedures Procedure Code Code Type Description Date Performed Performing Physician [id number] ICD10 Drainage of Left Foot, Open Approach 10-26-2015 MITRA REHMAN [id number] ICD10 Extraction of Left Foot Skin, External Approach 2015 MITRA REHMAN Functional status Functional Status Finding Observation Time Hearing Prob Loc none 69-18-082392:31 Vision Problems yes 83-02-892392:31 Vision Correct Dev glasses 77-01-542174:31 Ambulation Asst Dev none 25-61-108764:31 Range of Motion full 02-96-944983:10 Muscle Strength RUE 5 ROM full resist :10 Muscle Strength RLE 5 ROM full resist :10 Muscle Strength LUE 5 ROM full resist :10 Muscle Strength LLE 5 ROM full resist 27-04-048539:10 Transfers assist x 1 63-12-594553:10 Ambulation in room 30-03-647368:10 Balance unsteady :10 Bathing Assistance minimal : Eating Assistance minimal :39 Dressing Assistance minimal :31 Toileting Assistance minimal :31 Transfer Assistance moderate :31 Decline Slf Care/Mob no :31 Phys Cond Stable yes :31 Nutrition normal :10 Diet ADA specify calorie Comment: 1800 :10 Oral Cavity moist :10 Teeth missing (specify) 77-40-706370:10 Dental Hygiene good 91-95-944866:10 Abdomen Appearance obese :10 Abdomen soft :10 Bowel Sounds present :10 NG Tube no :10 Feeding Tube none :10 Pinto no 03-07-166346:10 Cont Bladder Irr no 75-12-944881:10 Ostomy no :10 Stool normal Comment: as reported :45 Color normal :13 Consistency normal 61-79-176588:13 Urination normal 00-53-183475:10 Urine Clarity clear 35-47-024217:10 Urine Color yellow 95-02-186843:10 Quality sym/unlabored :10 Cough non-productive :10 Secretions yes :42 Secretion Consist thin :42 Secretion Color green :42 Breath Sounds RUL clear :10 Breath Sounds RML diminished :10 Breath Sounds RLL diminished :10 Breath Sounds LARISA clear :10 Breath Sounds LLL diminished 49-93-743449:10 Airway natural :10 Chest Tube no :10 Oxygen no :07 Oxygen Mask Type nasal cannula :42 Oxygen Flow Rate ra 56-50-302252:08 C-PAP no 31-57-214121:10 BI-PAP no :10 New Infection pneumonia :10 Temp >100.4 no 64-53-526132:10 Temp <96.8 no :10 Chills with rigors no :10 HR > 90bpm no : Respirations > 20 no :10 Systolic <90 no :10 headache stiff neck no :10 WBC > 88378 no :10 WBC < 4000 no :10 Rapid Resp no :10 IV Site Location No IV ACCESS 85-13-289576:11 IV Type peripheral :30 IV Site Information existing :30 IV Site Start Attmpt 2 times 99-25-148693:39 IV Site Michael 20 66-59-224562:30 IV Site Appearance WNL 42-85-259734:30 IV Site Color clear :30 IV Site Patent yes :30 Dressing Changed yes :30 Dressing Type occlusive 51-37-061188:30 Nursing Note The patient reports she is doing "ok". Taking all medications. She has a follow-up appointment for next week. No other needs, concerns or complaints. She is complimentary of care received during this past hospitalization. 11-01-2015 12:37 Cognitive Status Finding Observation Time Oriented To Date 5 Yes :[address] 5 Yes :31 Name 3 Objects 3 Yes :31 Name Object in Rm 2 Yes :31 Recall 3 Objects 3 Yes :31 Repeats a Phrase 1 Yes :31 Follows Verbal Direc 3 Yes :31 Follows Written Dire 1 Yes :31 Write a Sentance 1 Yes : Draw an Object 1 Yes : Mini Mental Total 25 points : Less than 20 Phys not applicable :31 Learning Ability comprehends well : Neurological no :17 Psychological no :17 Physical yes :17 Hearing no :17 Telegraphic Typewriter Operator Needed no :17 Sign Language no : Emotional yes :17 Vision yes :17 Laguage no :17 Financial no :17 Vital signs Type Value Date Respiration Rate 18breaths per minute :07 Pulse 68beats per minute :07 Oxygen Saturation 94% :07 BP Systolic 134mmHg :07 BP Diastolic 63mmHg :07 Temperature 97.4F :07 Height 67.5inches :34 Weight 282.1LB 58-52-995656:34 Social history Type Value Smoking Status FORMER [...] appt already scheduled Follow Up Appt D/T 11-06-15/0900
--- OUTSIDE RECORDS SUMMARY | 2018-10-10 10:19 | XMS REPORT ---
Author Author [facility]IN PAT[facility]ICIO [facility] Address [address] [place] [address] Care Team Providers Care Pellet Preparation Operator Name Role Phone CAILIN PATRICIO Unavailable PROBLEMS Unknown Problems ALLERGIES Substance Reaction Event Type Date Status N.K.D.A. Unknown Non Drug Allergy Oct, Unknown SOCIAL HISTORY No smoking Hx information available PLAN OF CARE Activity Details Follow Up RCT #4 Reason: VITAL SIGNS Blood pressure systolic 147 mmHg 2016-11-19 Blood pressure diastolic 77 mmHg 2016-11-19 MEDICATIONS Medication Instructions Dosage Frequency Start Date End Date Duration Status Hydrocortisone Active Augmentin 875-125 MG Orally every 8 hrs 1 tablet 8h 10 day(s) Active Lyrica Active Clopidogrel Bisulfate Active Amoxicillin 875 MG Orally every 8 hrs 1 tablet 8h 10 day(s) Active Duloxetine HCl Active MethylPREDNISolone Active Percocet 7.5-325 MG Orally every 4-6 hrs 1-2 tablets as needed Active Tramadol HCl Active [place] 7.5-325 MG Orally every 4- 6 hrs prn dental pain 1-2 tablets as needed Active Mupirocin Active Oxycodone-Acetaminophen Active NovoLog Flexpen Active Alprazolam Active Sucralfate Active Belsomra Active Lisinopril Active Trazodone HCl Active [place] 10-325 MG Orally every 4-6 hrs 1-2 tablets as needed Active Atorvastatin Calcium Active Clindamycin HCl 300 MG Orally every 6 hrs 1 capsule 6h 10 days Active RESULTS No Results PROCEDURES Procedure Date Ordered Related Diagnosis Body Site LTD ORAL EVALUATION - PROBLEM FOCUS Nov 19, 2016 INTRAORL-PERIAPICAL 1 FILM 78015 Nov 19, 2016 IMMUNIZATIONS No Known Immunizations
--- OUTSIDE RECORDS SUMMARY | 2018-10-10 10:19 | XMS REPORT ---
Author Author CAILIN PATRICIO [facility] Address [address] [place] [address] Care Team Providers Care Manager Internet Retails Sales Name Role Phone CAILIN PATRICIO Unavailable PROBLEMS Unknown Problems ALLERGIES No Information SOCIAL HISTORY Never Assessed PLAN OF CARE VITAL SIGNS MEDICATIONS Unknown Medications RESULTS No Results PROCEDURES No Known procedures IMMUNIZATIONS No Known Immunizations MEDICAL (GENERAL) HISTORY Type Description Date Medical History heart attack Medical History high blood pressure Medical History diabetes-type II Medical History bronchitis Medical History pheumonia Medical History back trouble Medical History neck injuries Hospitalization History Pneumonia 09/3015&10/30/14
--- OUTSIDE RECORDS SUMMARY | 2018-10-10 10:19 | XMS REPORT | Referral Summary ---
Author Author [facility] Organization [facility] Address Unknown Phone Unavailable Encounter WENCESLAO [id number] Date(s): 02/20/15 - 02/25/15 [facility] [address] [place] [address] Final: CORONARY ATHEROSCLEROSIS OF [place] CORONARY ARTERY Final: HYPOSMOLALITY AND/OR HYPONATREMIA Final: [...]
--- OUTSIDE RECORDS SUMMARY | 2018-10-10 10:19 | XMS REPORT ---
Author Author [facility]ICIO [facility] Address [address] [place] [address] Care Team Providers Care Career Technical Supervisor Name Role Phone CAILIN PATRICIO Unavailable PROBLEMS Unknown Problems ALLERGIES Substance Reaction Event Type Date Status N.K.D.A. Unknown Non Drug Allergy Oct, Unknown SOCIAL HISTORY No smoking Hx information available PLAN OF CARE Activity Details Follow Up RTC #11 Reason: VITAL SIGNS Blood pressure systolic 148 mmHg 2016-10-26 Blood pressure diastolic 73 mmHg 2016-10-26 MEDICATIONS Medication Instructions Dosage Frequency Start Date End Date Duration Status Duloxetine HCl Active Tramadol HCl Active Clindamycin HCl 300 MG Orally every 6 hrs 1 capsule 6h 10 days Active Mupirocin Active MethylPREDNISolone Active Belsomra Active Clopidogrel Bisulfate Active Oxycodone-Acetaminophen Active Trazodone HCl Active Sucralfate Active Hydrocortisone Active Alprazolam Active NovoLog Flexpen Active Lyrica Active Floyd 7.5-325 MG Orally every 4- 6 hrs prn dental pain 1-2 tablets as needed Active Lisinopril Active Atorvastatin Calcium Active RESULTS No Results PROCEDURES Procedure Date Ordered Related Diagnosis Body Site LTD ORAL EVALUATION - PROBLEM FOCUS Oct 26, 2016 INTRAORL-PERIAPICAL 1 FILM 84445 Oct 26, 2016 IMMUNIZATIONS No Known Immunizations
--- OUTSIDE RECORDS SUMMARY | 2018-10-10 10:19 | XMS REPORT ---
Author Author CAILIN PATRICIO [facility] Address [address] [place] [address] Care Team Providers Care District Branch Manager Name Role Phone CAILIN PATRICIO Unavailable PROBLEMS Unknown Problems ALLERGIES Substance Reaction Event Type Date Status N.K.D.A. Unknown Non Drug Allergy Oct, Unknown SOCIAL HISTORY No smoking Hx information available PLAN OF CARE Activity Details Follow Up FOLLOW UP? Reason: VITAL SIGNS MEDICATIONS Medication Instructions Dosage Frequency Start Date End Date Duration Status Mupirocin Active Belsomra Active Augmentin 875-125 MG Orally every 8 hrs 1 tablet 8h 10 day(s) Active Tramadol HCl Active Duloxetine HCl Active Trazodone HCl Active Oxycodone-Acetaminophen Active Lisinopril Active Percocet 7.5-325 MG Orally every 4-6 hrs 1-2 tablets as needed Active Clopidogrel Bisulfate Active Atorvastatin Calcium Active Sucralfate Active [place] 10-325 MG Orally every 4-6 hrs 1-2 tablets as needed Active Amoxicillin 875 MG Orally every 8 hrs 1 tablet 8h 10 day(s) Active MethylPREDNISolone Active Alprazolam Active Clindamycin HCl 300 MG Orally every 6 hrs 1 capsule 6h 10 days Active NovoLog Flexpen Active [place] 7.5-325 MG Orally every 4- 6 hrs prn dental pain 1-2 tablets as needed Active Hydrocortisone Active Lyrica Active Percocet 7.5-325 MG Orally every 4-6 hrs 1-2 tablets as needed Active RESULTS No Results PROCEDURES Procedure Date Ordered Related Diagnosis Body Site SEDATIVE FILLING Nov 24, 2016 IMMUNIZATIONS No Known Immunizations
--- OUTSIDE RECORDS SUMMARY | 2018-10-10 10:19 | XMS REPORT ---
Author Author CAILIN PATRICIO [facility] [employer] Address Unknown Phone Unavailable Care Team Providers Care Power Press Operator Name Role Phone CAILIN PATRICIO CP Unavailable Allergies, Adverse Reactions, Alerts Substance Reaction Event Type N.K.D.A. Info Not Available Non Drug Allergy Problems Problem Type Condition Code Onset Dates Condition Status Assessment Dental examination Z01.20 Active Medications Medication Code System Code Instructions Start Date End Date Status Dosage [place] [facility] [address]-36 7.5-325 MG Orally every 4- 6 hrs prn dental pain 1-2 tablets as needed Sucralfate [facility] [address]-95 not defined Lisinopril [facility] [address]-44 not defined Alprazolam [facility] [address]-14 not defined Lyrica [facility] [address]-54 not defined Tramadol HCl ND 0 not defined Duloxetine HCl [facility] [address]-36 not defined Hydrocortisone [facility] [address]-05 not defined Atorvastatin Calcium [facility] [address]-14 not defined Clindamycin HCl [facility] [address]-95 150 MG Orally every 8 hrs 2 capsules NovoLog Flexpen [facility] [address]-51 not defined Mupirocin [facility] [address]-70 not defined Belsomra [facility] [address]-92 not defined MethylPREDNISolone [facility] [address]-46 not defined Trazodone HCl [facility] [address]-64 not defined Oxycodone-Acetaminophen [facility] [address]-45 not defined Clopidogrel Bisulfate [facility] [address]-70 not defined Procedures Procedure Coding System Code Date RESIN COMPOS - 3 SURFACES POSTERIOR CPT-4 D2393 May 04, 2016 Vital Signs Date/Time: May 04, 2016 Blood Pressure Diastolic 56 mmHg Blood Pressure Systolic 113 mmHg Results No Known Results Summary Purpose [employer] Submission
--- OUTSIDE RECORDS SUMMARY | 2018-10-10 10:20 | XMS REPORT | Clinical Summary ---
Author Author Admin, CARMELO Organization [facility] Address Unknown Phone Unavailable Allergies, Adverse Reactions, Alerts Allergy Name Reaction Description Start Date Severity Status Provider No Known Allergies Rossi Clark LPN Conditions or Problems Problem Name Problem Code Onset Date Status Entry Date Provider Comment Standard Description Annotate History of ANXIETY 300.00 Active Kevin Gramajo MD Anxiety state, unspecified DEPRESSION 311 Active Kevin Gramajo MD Depressive disorder, not elsewhere classified G E R D 530.81 Active Kevin Gramajo MD Esophageal reflux HYPERLIPIDEMIA 272.4 Active Kevin Gramajo MD Other and unspecified hyperlipidemia HYPERTENSION 401.9 Active Kevin Gramajo MD Unspecified essential hypertension URINARY RETENTION 788.20 Active Kevin Gramajo MD Retention of urine, unspecified ATONY OF BLADDER 596.4 Active Kevin Gramajo MD Atony of bladder DIABETES MELLITUS, TYPE II, UNCONTROLLED 250.02 Inactive Sammi Olivares APRN Diabetes mellitus without mention of complication, type II or unspecified type, uncontrolled NEUROGENIC BLADDER 596.54 Active Rena TEMPLETON Neurogenic bladder NOS INCOMPLETE BLADDER EMPTYING 788.21 Active Rena TEMPLETON 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 V58.67 Active Rena TEMPLETON Long-term (current) use of insulin Diabetes mellitus, type II, 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 Rena TEMPLETON Diabetes mellitus with neurological manifestations, type II or unspecified type, not stated as uncontrolled Diabetes mellitus, type II with hyperglycemia 250.00 Active 2016 Sammi Olivares MELINDA Diabetes mellitus without mention of complication, type II or unspecified type, not stated as uncontrolled DIABETES MELLITUS, TYPE II, UNCONTROLLED ICD-250.02 Inactive Sammi Olivares MELINDA Medication List Medication Instructions Start Date Stop Date Generic Name NDC Status Provider Patient Instruction SHAUNA CONTOUR NEXT TEST IN VITRO STRIP check blood sugars 3x/day GLUCOSE BLOOD 61252073816 Active Shaniquaever Sridharglchristian TEMPLETON Active K-TAB 10 MEQ ORAL TABLET EXTENDED RELEASE Take one by mouth daily POTASSIUM CHLORIDE 08137638123 Active Sammi Olivares MELINDA Active FUROSEMIDE 20 MG ORAL TABLET Take one by mouth daily FUROSEMIDE 89404509836 Active Sammi Olivares MELINAD Active TRESIBA FLEXTOUCH 200 UNIT/ML SUBCUTANEOUS SOLUTION PEN-INJECTOR Take 40 daily. INSULIN DEGLUDEC 87198477202 Active Shaniquaever Sridharglchristian TEMPLETON Active METFORMIN HCL ER 500 MG ORAL TABLET EXTENDED RELEASE 24 HOUR take 4 a day METFORMIN HCL 22606792632 Active Sammi Olivares APRN Active NOVOLOG FLEXPEN 100 UNIT/ML SUBCUTANEOUS SOLUTION PEN-INJECTOR Take 15units with each meal, add 2u/50 for blood sugars above 150, max dose 40u tid INSULIN ASPART 29077912914 Active Jasmeetgregever Sridharglari JARETH Active PEN NEEDLES 31G X 5 MM for a day for insulin injections INSULIN PEN NEEDLE 13284488979 Active Jasmeetgregever Sridharglari SUPERVISOR DRYING Active TRESIBA FLEXTOUCH 100 UNIT/ML SUBCUTANEOUS SOLUTION PEN-INJECTOR Take 60 units once a day at 6pm, add 2u/day after 3 days until morning sugar is below 130 INSULIN DEGLUDEC 65099906381 No Longer Active Sammi Olivares MELINDA Active AMBIEN 5 MG ORAL TABLET 2 tabs every hs prn ZOLPIDEM TARTRATE 87847043782 No Longer Active Sammi Elise LAWRENCE Active LANCETS 3 Dx E11.65 LANCETS 74448284431 Active Rena Wallerglari SUPERVISOR DRYING Active SHAUNA CONTOUR NEXT TEST IN VITRO STRIP check blood sugars 3x/day DX E11.65 GLUCOSE BLOOD 47662645555 Active [facility] Sridharglari SUPERVISOR DRYING Active LEVEMIR 100 UNIT/ML SUBCUTANEOUS SOLUTION 40u every hs INSULIN DETEMIR 17616418445 No Longer Active [facility] Sridharglari SUPERVISOR DRYING Active JANUVIA 100 MG ORAL TABLET Take one by mouth daily SITAGLIPTIN PHOSPHATE 98109904456 Active Sammi Olivares MAIL EXAMINER Active OXYCODONE HCL 20 MG ORAL TABLET every 8 hrs as needed OXYCODONE HCL 49185390762 Active [facility] Sirdharglari SUPERVISOR DRYING Active METOPROLOL TARTRATE 25 MG ORAL TABLET by mouth twice a day METOPROLOL TARTRATE 62044297776 No Longer [facility] Active ATORVASTATIN CALCIUM 80 MG ORAL TABLET Take one by mouth daily ATORVASTATIN CALCIUM 42846164654 [facility] SUPERVISOR DRYING Active ZOCOR 20 MG ORAL TABLET take at bedtime SIMVASTATIN 06541472265 No Longer [facility] SUPERVISOR DRYING Active FUROSEMIDE 40 MG ORAL TABLET by mouth twice a day FUROSEMIDE 15108290761 No Longer [facility] SUPERVISOR DRYING Active AMITRIPTYLINE HCL 75 MG ORAL TABLET Take one by mouth daily AMITRIPTYLINE HCL 01814764713 No Longer Active [facility] Sridharglari SUPERVISOR DRYING Active GABAPENTIN 100 MG ORAL CAPSULE take 2 tabs in the morning, 1 tab at lunch and 2 tabs at bedtime GABAPENTIN 88530402885 No Longer [facility] SUPERVISOR DRYING Active JANUMET 50-500 MG ORAL TABLET by mouth twice a day SITAGLIPTIN -METFORMIN HCL 44719381749 No Longer [facility] SUPERVISOR DRYING Active DIABETA 5 MG ORAL TABLET by mouth twice a day GLYBURIDE 80099899561 No Longer Active [facility] Ziglari SUPERVISOR DRYING Active SHAUNA CONTOUR TEST IN VITRO STRIP check blood sugars 4x/day 05/17 GLUCOSE BLOOD 93712475684 No Longer [facility] SUPERVISOR DRYING Active TRAZODONE HCL 50 MG ORAL TABLET take at bedtime TRAZODONE HCL 93837975100 Active Rossi Clark LPN Active CYMBALTA 30 MG ORAL CAPSULE DELAYED RELEASE PARTICLES Take one by mouth daily DULOXETINE HCL 01442704389 No Longer Active Rossi Eduardo PRICE Active CYMBALTA 60 MG ORAL CAPSULE DELAYED RELEASE PARTICLES Take one by mouth daily DULOXETINE HCL 58963995131 Active Rossi Clark LPN Active COLACE 100 MG ORAL CAPSULE by mouth twice a day DOCUSATE SODIUM 15961170125 Active Rossi Clark LPN Active MIRALAX ORAL POWDER 17gm in h2o daily as directed POLYETHYLENE GLYCOL 3350 13767172847 Active Rossi Clark LPN Active ACETAMINOPHEN 325 MG ORAL TABLET 2 every 6 hrs prn ACETAMINOPHEN 72617350217 Active Rossi Clark LPN Active [facility] MAGNESIA 1200 MG/15ML ORAL SUSPENSION 30 cc prn constipation 2011 MAGNESIUM HYDROXIDE 00104413187 Active Rossi Clark LPN Active CINNAMON 500 MG ORAL TABLET by mouth twice a day CINNAMON 05624989484 Active Rossi Clark LPN Active ZINC TABLET Take one by mouth daily ZINC TABS 50709237095 Active Rossi Clark LPN Active CALCIUM + D 600-200 MG-UNIT TABS Take one by mouth daily CALCIUM CARBONATE-VITAMIN D 75262852156 Active Rossi Clark LPN Active [facility] FOLIC ACID 400 MCG ORAL TABLET Take one by mouth daily FOLIC ACID 63361809153 Active Rossi Clark LPN Active REMERON 15 MG ORAL TABLET take at bedtime MIRTAZAPINE 58419683601 Active Rossi Clark LPN Active ADULT ASPIRIN EC LOW STRENGTH 81 MG ORAL TABLET DELAYED RELEASE Take one by mouth daily ASPIRIN 65394658463 Active Rossi Clark LPN Active TRAZODONE HCL 100 MG ORAL TABLET take 1-2 tabs at bedtime as needed TRAZODONE HCL 51431237203 Active Dale Pittman Active ALPRAZOLAM 0.25 MG ORAL TABLET Take one by mouth 3 times daily, morning, afternoon and evening.] ALPRAZOLAM 93651503212 Active Dale Brinkmeyer Active LISINOPRIL 10 MG ORAL TABLET Take one by mouth daily LISINOPRIL 11531931999 Active Dale Brinkmeyer Active CYMBALTA 30 MG ORAL CAPSULE DELAYED RELEASE PARTICLES Take one by mouth daily CYMBALTA 30 MG ORAL CAPSULE DELAYED RELEASE PARTICLES 102288 DULOXETINE HCL Inactive SHAUNA CONTOUR TEST IN VITRO STRIP check blood sugars 4x/day 05/17 SHAUNA CONTOUR TEST IN VITRO STRIP GLUCOSE BLOOD Inactive DIABETA 5 MG ORAL TABLET by mouth twice a day DIABETA 5 MG ORAL TABLET GLYBURIDE Inactive JANUMET 50-500 MG ORAL TABLET by mouth twice a day JANUMET 50- 500 MG ORAL TABLET SITAGLIPTIN-METFORMIN HCL Inactive GABAPENTIN 100 MG ORAL CAPSULE take 2 tabs in the morning, 1 tab at lunch and 2 tabs at bedtime GABAPENTIN 100 MG ORAL CAPSULE 639085 GABAPENTIN Inactive AMITRIPTYLINE HCL 75 MG ORAL TABLET Take one by mouth daily AMITRIPTYLINE HCL 75 MG ORAL TABLET 103491 AMITRIPTYLINE HCL Inactive FUROSEMIDE 40 MG ORAL TABLET by mouth twice a day FUROSEMIDE 40 MG ORAL TABLET 124420 FUROSEMIDE Inactive ZOCOR 20 MG ORAL TABLET take at bedtime ZOCOR 20 MG ORAL TABLET 925116 SIMVASTATIN Inactive METOPROLOL TARTRATE 25 MG ORAL TABLET by mouth twice a day METOPROLOL TARTRATE 25 MG ORAL TABLET 852794 METOPROLOL TARTRATE Inactive LEVEMIR 100 UNIT/ML SUBCUTANEOUS SOLUTION 40u every hs LEVEMIR 100 UNIT/ML SUBCUTANEOUS SOLUTION INSULIN DETEMIR Inactive AMBIEN 5 MG ORAL TABLET 2 tabs every hs prn AMBIEN 5 MG ORAL TABLET 622245 ZOLPIDEM TARTRATE Inactive TRESIBA FLEXTOUCH 100 UNIT/ML SUBCUTANEOUS SOLUTION PEN-INJECTOR Take 60 units once a day at 6pm, add 2u/day after 3 days until morning sugar is below 130 TRESIBA FLEXTOUCH 100 UNIT/ML SUBCUTANEOUS SOLUTION PEN-INJECTOR INSULIN DEGLUDEC Inactive Vital Signs Date Name Value Unit Range Description blood pressure, diastolic 78 mm[Hg] BP coronado blood pressure, systolic 150 mm[Hg] BP sys height E&M 67 [in_us] Bdy height pulse rate E&M 72 /min Heart rate weight E&M 284 [lb_av] Weight Measured weight E&M 8.3 [lb_av] Weight Measured blood pressure, diastolic 80 mm[Hg] BP coronado blood pressure, systolic 150 mm[Hg] BP sys height E&M 67 [in_us] Bdy height pulse rate E&M 80 /min Heart rate weight E&M 277 [lb_av] Weight Measured blood pressure, diastolic 80 mm[Hg] BP coronado blood pressure, systolic 138 mm[Hg] BP sys height E&M 67 [in_us] Bdy height pulse rate E&M 84 /min Heart rate weight E&M 279 [lb_av] Weight Measured Diagnostic Results Date Name Value Unit Range Description Chart Maintenance: outside labs added to flowsheet - Chemistry blood glucose 327 mg/dL Office Visit: Diabetes Visit - Basic LDL target level 100 mg/dL LDL target level 100 mg/dL LDL target level 100 mg/dL Office Visit: Diabetes Visit - Chemistry cholesterol, target level 200 mg/dL triglyceride, target level 200 mg/dL HDL cholesterol, serum, target level 35 mg/dL cholesterol, target level 200 mg/dL triglyceride, target level 200 mg/dL HDL cholesterol, serum, target level 35 mg/dL cholesterol, target level 200 mg/dL triglyceride, target level 200 mg/dL HDL cholesterol, serum, target level 35 mg/dL Encounters Code Encounter Date Provider Facility CPT-01283 Level 3 Est. 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 [facility] Level 4 Est. Patient 10:17:45 CDT [facility] CPT-52191 Level 4 Est. Patient 17:01:22 CDT Sammi Olivares [facility] CPT-97378 Level 5 Est. Patient 16:18:07 CDT [facility] CPT-55725 Level 3 Est. Patient 17:20:16 CDT [facility] CPT-38256 Level 5 Est. Patient 09:44:15 CDT [facility] CPT-62967 Level 4 New Patient 07:56:40 MILK PICKUP DRIVER Kevin Gramajo MD [facility] Procedures Code Procedure Name Date Entry Date Standard Description CPT-70608 First Vx - Ix admin via ID IM or jet injects without counseling by physician 14:59:49 MILK PICKUP DRIVER CPT-88544 Fluzone Quadrivalent Intramuscular Suspension 0.5 ML 14: 59:49 MILK PICKUP DRIVER CPT-12094 Bladder Scan 17:20:16 CDT CPT-A4351 Female Cath 07:56:40 MILK PICKUP DRIVER CPT-62930 Cystoscopy 07:56:40 MILK PICKUP DRIVER
--- OUTSIDE RECORDS SUMMARY | 2018-10-10 10:20 | XMS REPORT ---
Author [facility] Address [address] [place] [address] Care Team Providers Care Team Manager Name Role Phone CAILIN PATRICIO Unavailable PROBLEMS Unknown Problems ALLERGIES Substance Reaction Event Type Date Status N.K.D.A. Unknown Non Drug Allergy Oct, Unknown SOCIAL HISTORY No smoking Hx information available PLAN OF CARE Activity Details Follow Up BEV/Prophy Reason: VITAL SIGNS Blood pressure systolic 160 mmHg 2016-11-12 Blood pressure diastolic 84 mmHg 2016-11-12 MEDICATIONS Medication Instructions Dosage Frequency Start Date End Date Duration Status Alprazolam Active Clopidogrel Bisulfate Active [place] 10-325 MG Orally every 4-6 hrs 1-2 tablets as needed Active Atorvastatin Calcium Active Lisinopril Active Tramadol HCl Active MethylPREDNISolone Active Oxycodone-Acetaminophen Active Lyrica Active Hydrocortisone Active Duloxetine HCl Active Trazodone HCl Active Sucralfate Active Belsomra Active [place] 7.5-325 MG Orally every 4- 6 hrs prn dental pain 1-2 tablets as needed Active Mupirocin Active Clindamycin HCl 300 MG Orally every 6 hrs 1 capsule 6h 10 days Active NovoLog Flexpen Active RESULTS No Results PROCEDURES Procedure Date Ordered Related Diagnosis Body Site SURG REMOVAL ERUPTED TOOTH Nov 12, 2016 IMMUNIZATIONS No Known Immunizations
--- OUTSIDE RECORDS SUMMARY | 2018-10-10 10:20 | XMS REPORT ---
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 Info Not Available Non Drug Allergy Problems Problem Type Condition Code Onset Dates Condition Status Assessment Dental examination Z01.20 Active Medications Medication Code System Code Instructions Start Date End Date Status Dosage [place] [facility] [address]-46 7.5-325 MG Orally every 4- 6 hrs prn dental pain 1-2 tablets as needed Tramadol HCl ND 0 not defined MethylPREDNISolone [facility] [address]-26 not defined Clopidogrel Bisulfate [facility] [address]-01 not defined Mupirocin [facility] [address]-35 not defined Sucralfate [facility] [address]-25 not defined Lisinopril [facility] [address]-33 not defined Lyrica [facility] [address]-62 not defined Duloxetine HCl [facility] [address]-00 not defined Atorvastatin Calcium [facility] [address]-15 not defined NovoLog Flexpen [facility] [address]-96 not defined Oxycodone-Acetaminophen [facility] [address]-17 not defined Belsomra [facility] [address]-58 not defined Hydrocortisone [facility] [address]-93 not defined Trazodone HCl [facility] [address]-61 not defined Clindamycin HCl [facility] [address]-46 150 MG Orally every 8 hrs 2 capsules Alprazolam [facility] [address]-49 not defined Procedures Procedure Coding System Code Date RSN COMPOS-4/> SURF/W/INCISAL ANG CPT-4 D2335 Jun 09, 2016 RESIN COMPOS - 3 SURFACES ANTERIOR CPT-4 D2332 Jun 09, 2016 Vital Signs Date/Time: Jun 09, 2016 Blood Pressure Diastolic 75 mmHg Blood Pressure Systolic 137 mmHg Results No Known Results Summary Purpose e[employer] Submission
--- OUTSIDE RECORDS SUMMARY | 2018-10-10 10:20 | XMS REPORT ---
Author Author CAILIN PATRICIO Organization [facility] [place] Address [address] [place] [address] Care Team Providers Care Wire Brush Operator Name Role Phone CAILIN PATRICIO Unavailable PROBLEMS Unknown Problems ALLERGIES No Information ENCOUNTERS Encounter Location Date Diagnosis [facility] [place] [address] [id number] [place] [id number] Apr, [facility] [place] [address] [id number] [place] [id number] Oct, [facility] [place] [address] [id number] [place] [id number] Oct, Dental examination Z01.20 [facility] [place] [address] [id number] [place] [id number] Oct, Dental examination Z01.20 [facility] [place] [address] [id number] [place] [id number] Oct, Dental examination Z01.20 [facility] [place] [address] [id number] [place] [id number] Oct, Dental examination Z01.20 [facility] [place] [address] [id number] [place] [id number] May, Dental examination Z01.20 [facility] [place] [address] [id number] [place] [id number] Apr, Dental examination Z01.20 [facility] [place] [address] [id number] [place] [id number] Mar, Dental examination Z01.20 [facility] [place] [address] [id number] [place] [id number] February, [facility] [place] [address] [id number] [place] [id number] February, Dental examination Z01.20 [facility] [place] [address] [id number] [place] [id number] Dec, [facility] [place] [address] [facility] [address] [id number] [place] [id number] Dec, Dental examination Z01.20 IMMUNIZATIONS No Known Immunizations SOCIAL HISTORY Never Assessed REASON FOR VISIT dental appt PLAN OF CARE VITAL SIGNS MEDICATIONS Medication Instructions Dosage Frequency Start Date End Date Duration Status Amoxicillin 875 MG Orally every 8 hrs 1 tablet 8h 10 day(s) Active Augmentin 875-125 MG Orally every 12 hrs 1 tablet 12h 10 day(s) Active RESULTS No Results PROCEDURES No Known procedures INSTRUCTIONS MEDICATIONS ADMINISTERED No Known Medications MEDICAL (GENERAL) HISTORY Type Description Date Medical History heart attack Medical History high blood pressure Medical History diabetes-type II Medical History bronchitis Medical History pheumonia Medical History back trouble Medical History neck injuries Hospitalization History Pneumonia 09/3015&10/30/14
--- OUTSIDE RECORDS SUMMARY | 2018-10-10 10:21 | XMS REPORT | Clinical Summary ---
Author Author Admin, CARMELO Grajeda [facility] Address Unknown Phone Unavailable Allergies, Adverse Reactions, Alerts Allergy Name Reaction Description Start Date Severity Status Provider No Known Allergies Rossi Mathews LPN Conditions or Problems Problem Name Problem [...] bladder DIABETES MELLITUS, TYPE II, UNCONTROLLED 250.02 Active Rena TEMPLETON Diabetes mellitus without mention of complication, type II or unspecified type, uncontrolled NEUROGENIC BLADDER 596.54 Active Rena TEMPLETON Neurogenic bladder NOS INCOMPLETE BLADDER EMPTYING 788.21 Active Rena TEMPLETON Incomplete bladder emptying skilled nursing use of insulin treatment V58.67 Active Rena TEMPLETON Long-term (current) use of insulin Diabetes mellitus, type II, 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 Rena TEMPLETON Diabetes mellitus with neurological manifestations, type II or unspecified type, not stated as uncontrolled Medication List Medication Instructions Start Date Stop Date Generic Name NDC Status Provider Patient Instruction NOVOLOG 100 UNIT/ML SOLN give 14 units subq three times daily Add 4units per 50 for blood sugar above 150 INSULIN ASPART 06460633432 Active Sammi Olivares GRADE TAMPER Active TRESIBA FLEXTOUCH 100 UNIT/ML SC SOPN Take 60 units once a day at 6pm, add 2u/ day after 3 days until morning sugar is below 130 INSULIN DEGLUDEC 02051469214 No Longer Active Sammi Poinsett GRADE TAMPER Active AMBIEN 5 MG ORAL TABS 2 tabs every hs prn ZOLPIDEM TARTRATE 62099859049 No Longer Active Sammi Elise GRADE TAMPER Active LANCETS MISC 3 Dx E11.65 LANCETS 04121542980 Active Rena Wallerglari SOFT SUGAR SUPERVISOR Active SHAUNA CONTOUR NEXT TEST INVITR STRP check blood sugars 3x/day DX E11.65 05/17 GLUCOSE BLOOD 20386723227 Active Rena Wallerglari SOFT SUGAR SUPERVISOR Active LEVEMIR 100 UNIT/ML SOLN 40u every hs INSULIN DETEMIR 33472745506 No Longer Active Droplet Ziglari SOFT SUGAR SUPERVISOR Active JANUVIA 100 MG TABS Take one by mouth daily SITAGLIPTIN PHOSPHATE 60426465967 Active Sammi Olivares GRADE TAMPER Active METFORMIN HCL 500 MG [id number] one a day for 5 days then 2 a day, then add one every 5 days to 4 a day METFORMIN HCL 76732023253 Active Maliheh Ziglari SOFT SUGAR SUPERVISOR Active OXYCODONE HCL 20 MG ORAL TABS every 8 hrs as needed OXYCODONE HCL 75093270174 Active Rena Ziglari SOFT SUGAR SUPERVISOR Active METOPROLOL TARTRATE 25 MG TABS by mouth twice a day METOPROLOL TARTRATE 07787722051 No Longer Active Maliheh Ziglari SOFT SUGAR SUPERVISOR Active ATORVASTATIN CALCIUM 80 MG ORAL TABS Take one by mouth daily ATORVASTATIN CALCIUM 57566333164 Active MalCarbayeh Ziglari SOFT SUGAR SUPERVISOR Active ZOCOR 20 MG TABS take at bedtime SIMVASTATIN 58575117163 No Longer Active Maliheh Ziglari SOFT SUGAR SUPERVISOR Active FUROSEMIDE 40 MG TABS by mouth twice a day FUROSEMIDE 91087212639 No [facility]er [facility] Active AMITRIPTYLINE HCL 75 MG TABS Take one by mouth daily AMITRIPTYLINE HCL 01789913298 No Longer [facility] SOFT SUGAR SUPERVISOR Active GABAPENTIN 100 MG CAPS take 2 tabs in the morning, 1 tab at lunch and 2 tabs at bedtime GABAPENTIN 74512984066 No Longer [facility] Active JANUMET 50-500 MG TABS by mouth twice a day SITAGLIPTIN- METFORMIN HCL 86312826060 No Longer Active [facility] Active DIABETA 5 MG TABS by mouth twice a day GLYBURIDE 19653940652 No Longer [facility] SOFT SUGAR SUPERVISOR Active SHAUNA CONTOUR TEST STRP check blood sugars 4x/day GLUCOSE BLOOD 74531191073 No Longer [facility] Active TRAZODONE HCL 50 MG TABS take at bedtime TRAZODONE HCL 11626114189 Active Rossi Mathews LPN Active CYMBALTA 30 MG CPEP Take one by mouth daily DULOXETINE HCL 07136181150 No Longer Active Rossi Mathews LPN Active CYMBALTA 60 MG CPEP Take one by mouth daily DULOXETINE HCL 12096609914 Active Rossi Mathews LPN Active COLACE 100 MG CAPS by mouth twice a day DOCUSATE SODIUM 45498490575 Active Rossi Mathews LPN Active MIRALAX POWD 17gm in h2o daily as directed POLYETHYLENE GLYCOL 3350 21070262273 Active Rossi Mathews LPN Active ACETAMINOPHEN 325 MG TABS 2 every 6 hrs prn ACETAMINOPHEN 24876854619 Active Rossi Mathews LPN Active [facility] MILK OF MAGNESIA 1200 MG/15ML SUSP 30 cc prn constipation MAGNESIUM HYDROXIDE 94940493764 Active Rossi Mathews LPN Active CINNAMON 500 MG TABS by mouth twice a day CINNAMON 67867302932 Active Rossi Reid PRICE Active ZINC TABS Take one by mouth daily ZINC TABS 61372569246 Active Rossi Reid PRICE Active CALCIUM + D 600-200 MG-UNIT TABS Take one by mouth daily CALCIUM CARBONATE-VITAMIN D 60575414031 Active Rossi Reid PRICE Active [facility] FOLIC ACID 400 MCG TABS Take one by mouth daily FOLIC ACID 57328622206 Active Rossi Reid PRICE Active REMERON 15 MG TABS take at bedtime MIRTAZAPINE 15504705109 Active Rossi Reid PRICE Active ADULT ASPIRIN EC LOW STRENGTH 81 MG TBEC Take one by mouth daily ASPIRIN 65859911704 Active Rossi Reid PRICE Active TRAZODONE HCL 100 MG TABS take 1-2 tabs at bedtime as needed TRAZODONE HCL 31674070867 Active Dale Pittman Active ALPRAZOLAM 0.25 MG TABS Take one by mouth 3 times daily, morning, afternoon and evening.] ALPRAZOLAM 57032573802 Active Dale Pittman Active LISINOPRIL 10 MG TABS Take one by mouth daily LISINOPRIL 00364465680 Active Dale Pittman Active CYMBALTA 30 MG CPEP Take one by mouth daily CYMBALTA 30 MG CPEP 302240 DULOXETINE HCL Inactive SHAUNA CONTOUR TEST STRP check blood sugars 4x/day SHAUNA CONTOUR TEST STRP GLUCOSE BLOOD Inactive DIABETA 5 MG TABS by mouth twice a day DIABETA 5 MG TABS GLYBURIDE Inactive JANUMET 50-500 MG TABS by mouth twice a day JANUMET 50-500 MG TABS SITAGLIPTIN-METFORMIN HCL Inactive GABAPENTIN 100 MG CAPS take 2 tabs in the morning, 1 tab at lunch and 2 tabs at bedtime GABAPENTIN 100 MG CAPS 834808 GABAPENTIN Inactive AMITRIPTYLINE HCL 75 MG TABS Take one by mouth daily AMITRIPTYLINE HCL 75 MG TABS 725260 AMITRIPTYLINE HCL Inactive FUROSEMIDE 40 MG TABS by mouth twice a day FUROSEMIDE 40 MG TABS 578730 FUROSEMIDE Inactive ZOCOR 20 MG TABS take at bedtime ZOCOR 20 MG TABS 921784 SIMVASTATIN Inactive METOPROLOL TARTRATE 25 MG TABS by mouth twice a day METOPROLOL TARTRATE 25 MG TABS 276970 METOPROLOL TARTRATE Inactive LEVEMIR 100 UNIT/ML SOLN 40u every hs LEVEMIR 100 UNIT/ML SOLN INSULIN DETEMIR Inactive AMBIEN 5 MG ORAL TABS 2 tabs every hs prn AMBIEN 5 MG ORAL TABS 586735 ZOLPIDEM TARTRATE Inactive TRESIBA FLEXTOUCH 100 UNIT/ML SC SOPN Take 60 units once a day at 6pm, add 2u/ day after 3 days until morning sugar is below 130 TRESIBA FLEXTOUCH 100 UNIT/ML SC SOPN INSULIN DEGLUDEC Inactive Vital Signs Date Name Value Unit Range Description blood pressure, diastolic 70 mm[Hg] BP coronado blood pressure, systolic 138 mm[Hg] BP sys height E&M 67 [in_us] Bdy height pulse rate E&M 72 /min Heart rate weight E&M 282 [lb_av] Weight Measured blood pressure, diastolic 80 mm[Hg] BP coronado blood pressure, systolic 128 mm[Hg] BP sys height E&M 67 [in_us] Bdy height pulse rate E&M 62 /min Heart rate weight E&M 269 [lb_av] Weight Measured Diagnostic Results Date Name Value Unit Range Description Chart Maintenance: outside lab added to flowsheet - Chemistry creatinine, serum 1.00 mg/dL blood glucose 300 mg/dL hemoglobin A1C, blood, as % of total hemoglobin 11.2 % Office Visit: Diabetes Visit - Basic LDL target level 100 mg/dL LDL target level 100 mg/dL Office Visit: Diabetes Visit - Chemistry home glucose monitor utilized Yes cholesterol, target level 200 mg/dL triglyceride, target level 200 mg/dL HDL cholesterol, serum, target level 35 mg/dL cholesterol, target level 200 mg/dL triglyceride, target level 200 mg/dL HDL cholesterol, serum, target level 35 mg/dL Encounters Code Encounter Date Provider Facility CPT-03503 Level 4 Est. Patient 17:01:22 CDT Sammi Olivares [facility] CPT-43584 Level 5 Est. Patient 16:18:07 CDT [facility] CPT-59178 Level 3 Est. Patient 17:20:16 CDT [facility] CPT-52452 Level 5 Est. 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
--- OUTSIDE RECORDS SUMMARY | 2018-10-10 10:21 | XMS REPORT | Clinical Summary ---
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 Rena TEMPLETON Diabetes mellitus with neurological manifestations, type II or unspecified type, not stated as uncontrolled Diabetes mellitus, type II with hyperglycemia 250.00 Active 2016 Sammi Olivares APRN Diabetes mellitus without mention of complication, type II or unspecified type, not stated as uncontrolled DIABETES MELLITUS, TYPE II, UNCONTROLLED ICD-250.02 Inactive Sammi Olivares MELINDA Medication List Medication Instructions Start Date Stop Date Generic Name ND Status Provider Patient Instruction K-TAB 10 MEQ ORAL TABLET EXTENDED RELEASE Take one by mouth daily POTASSIUM CHLORIDE 38766812092 Active Sammi Olivares APRN Active FUROSEMIDE 20 MG ORAL TABLET Take one by mouth daily FUROSEMIDE 76019833194 Active Sammi Olivares APRN Active TRESIBA FLEXTOUCH 200 UNIT/ML SUBCUTANEOUS SOLUTION PEN-INJECTOR Take 40 daily. INSULIN DEGLUDEC 13777253541 Active Maliheh Ziglari RADIO MECHANIC Active METFORMIN HCL ER 500 MG ORAL TABLET EXTENDED RELEASE 24 HOUR take 4 a day METFORMIN HCL 28385711891 Active Sammi Olivares APRN Active NOVOLOG FLEXPEN 100 UNIT/ML SUBCUTANEOUS SOLUTION PEN-INJECTOR Take 15units with each meal, add 2u/50 for blood sugars above 150, max dose 40u tid INSULIN ASPART 84464997591 Active Malgrey Ziglari RADIO MECHANIC Active PEN NEEDLES 31G X 5 MM for a day for insulin injections INSULIN PEN NEEDLE 72314876837 Active Maliheh Ziglari RADIO MECHANIC Active TRESIBA FLEXTOUCH 100 UNIT/ML SUBCUTANEOUS SOLUTION PEN-INJECTOR Take 60 units once a day at 6pm, add 2u/day after 3 days until morning sugar is below 130 INSULIN DEGLUDEC 24278209731 No Longer Active Sammi Olivares APRN Active AMBIEN 5 MG ORAL TABLET 2 tabs every hs prn ZOLPIDEM TARTRATE 74648567601 No Longer Active Sammi Olivares MELINDA Active LANCETS 3 Dx E11.65 LANCETS 10501886867 Active Maliheh Ziglari RADIO MECHANIC Active SHAUNA CONTOUR NEXT TEST IN VITRO STRIP check blood sugars 3x/day DX E11.65 GLUCOSE BLOOD 19806392053 Active Maliheh Ziglari RADIO MECHANIC Active LEVEMIR 100 UNIT/ML SUBCUTANEOUS SOLUTION 40u every hs INSULIN DETEMIR 52873969372 No Longer Active [facility] Active JANUVIA 100 MG ORAL TABLET Take one by mouth daily SITAGLIPTIN PHOSPHATE 40828522726 Active Sammi Olivares APRN Active OXYCODONE HCL 20 MG ORAL TABLET every 8 hrs as needed OXYCODONE HCL 52066608381 Active [facility] RADIO MECHANIC Active METOPROLOL TARTRATE 25 MG ORAL TABLET by mouth twice a day METOPROLOL TARTRATE 90599559023 No Longer Active [facility] RADIO MECHANIC Active ATORVASTATIN CALCIUM 80 MG ORAL TABLET Take one by mouth daily ATORVASTATIN CALCIUM 56088148898 [facility] ZOCOR 20 MG ORAL TABLET take at bedtime SIMVASTATIN 84328908090 No Longer Active [facility] Active FUROSEMIDE 40 MG ORAL TABLET by mouth twice a day FUROSEMIDE 68256819006 No Longer [facility] Active AMITRIPTYLINE HCL 75 MG ORAL TABLET Take one by mouth daily AMITRIPTYLINE HCL 99828788699 No Longer Active [facility] Active GABAPENTIN 100 MG ORAL CAPSULE take 2 tabs in the morning, 1 tab at lunch and 2 tabs at bedtime GABAPENTIN 27621289486 No [facility] Active JANUMET 50-500 MG ORAL TABLET by mouth twice a day SITAGLIPTIN -METFORMIN HCL 05219234633 No Longer [facility] Active DIABETA 5 MG ORAL TABLET by mouth twice a day GLYBURIDE 88265949175 No Longer [facility] RADIO MECHANIC Active SHAUNA CONTOUR TEST IN VITRO STRIP check blood sugars 4x/day 05/17 GLUCOSE BLOOD 88790267530 No Longer Active [facility] RADIO MECHANIC Active TRAZODONE HCL 50 MG ORAL TABLET take at bedtime TRAZODONE HCL 17774622842 Active Rossi Clark LPN Active CYMBALTA 30 MG ORAL CAPSULE DELAYED RELEASE PARTICLES Take one by mouth daily DULOXETINE HCL 32117939343 No Longer Active Rossiradha Clark LPN Active CYMBALTA 60 MG ORAL CAPSULE DELAYED RELEASE PARTICLES Take one by mouth daily DULOXETINE HCL 07034706422 Active Rossi Eduardo PRICE Active COLACE 100 MG ORAL CAPSULE by mouth twice a day DOCUSATE SODIUM 38889753525 Active Rossi Clark LPN Active MIRALAX ORAL POWDER 17gm in h2o daily as directed POLYETHYLENE GLYCOL 3350 77283185810 Active Rossi Clark LPN Active ACETAMINOPHEN 325 MG ORAL TABLET 2 every 6 hrs prn ACETAMINOPHEN 21847315651 Active Rossi Clark LPN Active [facility] MILK OF MAGNESIA 1200 MG/15ML ORAL SUSPENSION 30 cc prn constipation 2011 MAGNESIUM HYDROXIDE 34148489610 Active Rossi Clark LPN Active CINNAMON 500 MG ORAL TABLET by mouth twice a day CINNAMON 29563865519 Active Rossi Clark LPN Active ZINC TABLET Take one by mouth daily ZINC TABS 92078286976 Active Rossi Clark LPN Active CALCIUM + D 600-200 MG-UNIT TABS Take one by mouth daily CALCIUM CARBONATE-VITAMIN D 39498773140 Active Rossi Clark LPN Active [facility] FOLIC ACID 400 MCG ORAL TABLET Take one by mouth daily FOLIC ACID 05682319699 Active Rossi Clark LPN Active REMERON 15 MG ORAL TABLET take at bedtime MIRTAZAPINE 63700034766 Active Rossi Clark LPN Active ADULT ASPIRIN EC LOW STRENGTH 81 MG ORAL TABLET DELAYED RELEASE Take one by mouth daily ASPIRIN 71822930334 Active Rossi Clark LPN Active TRAZODONE HCL 100 MG ORAL TABLET take 1-2 tabs at bedtime as needed TRAZODONE HCL 40939536504 Active [facility] Active ALPRAZOLAM 0.25 MG ORAL TABLET Take one by mouth 3 times daily, morning, afternoon and evening.] ALPRAZOLAM 81880261319 Active Dale Brinkmeyer Active LISINOPRIL 10 MG ORAL TABLET Take one by mouth daily LISINOPRIL 10710255232 Active Dale Pittman Active CYMBALTA 30 MG ORAL CAPSULE DELAYED RELEASE PARTICLES Take one by mouth daily CYMBALTA 30 MG ORAL CAPSULE DELAYED RELEASE PARTICLES 733178 DULOXETINE HCL Inactive SHAUNA CONTOUR TEST IN [...] at bedtime GABAPENTIN 100 MG ORAL CAPSULE 789235 GABAPENTIN Inactive AMITRIPTYLINE HCL 75 MG ORAL TABLET Take one by mouth daily AMITRIPTYLINE HCL 75 MG ORAL TABLET 795917 AMITRIPTYLINE HCL Inactive FUROSEMIDE 40 MG ORAL TABLET by mouth twice a day FUROSEMIDE 40 MG ORAL TABLET 974138 FUROSEMIDE Inactive ZOCOR 20 MG ORAL TABLET take at bedtime ZOCOR 20 MG ORAL TABLET 930617 SIMVASTATIN Inactive METOPROLOL TARTRATE 25 MG ORAL TABLET by mouth twice a day METOPROLOL TARTRATE 25 MG ORAL TABLET 765151 METOPROLOL TARTRATE Inactive LEVEMIR 100 UNIT/ML SUBCUTANEOUS SOLUTION 40u every hs LEVEMIR 100 UNIT/ML SUBCUTANEOUS SOLUTION INSULIN DETEMIR Inactive AMBIEN 5 MG ORAL TABLET 2 tabs every hs prn AMBIEN 5 MG ORAL TABLET 647424 ZOLPIDEM TARTRATE Inactive TRESIBA FLEXTOUCH 100 UNIT/ML [...] mg/dL Encounters Code Encounter Date Provider Facility CPT-69534 Level 3 Est. Patient 14:55:50 VINITA Olivares APRN [facility] CPT-64239 Level 3 Est. Patient 10:01:00 CDT Rena Regalado [facility] CPT-11996 Level 4 Est. Patient 10:17:45 CDT Jasmeetever Regalado [facility] CPT-91072 Level 4 Est. Patient 17:01:22 CDT Sammi Olivares [facility] CPT-77864 Level 5 Est. Patient 16:18:07 CDT Rena Regalado [facility] CPT-46749 Level 3 Est. Patient 17:20:16 CDT [facility] CPT-31112 Level 5 Est. 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
--- OUTSIDE RECORDS SUMMARY | 2018-10-10 10:22 | XMS REPORT | Clinical Summary ---
Author Author Admin, CARMELO Organization [facility] Address Unknown Phone Unavailable Allergies, Adverse Reactions, [...] TYPE II, UNCONTROLLED 250.02 Inactive Sammi Olivares BANQUET BARTENDER Diabetes mellitus without mention of complication, type II or unspecified type, uncontrolled NEUROGENIC BLADDER 596.54 Active Rena TEMPLETON Neurogenic bladder NOS INCOMPLETE BLADDER EMPTYING 788.21 Active Rena GIBSONP Incomplete bladder emptying manager terminal use of insulin treatment V58.67 Active Rena TEMPLETON Long-term (current) use of insulin Diabetes mellitus, type II, 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 Rena GIBSONP Diabetes mellitus with neurological manifestations, type II or unspecified type, not stated as uncontrolled Diabetes mellitus, type II with hyperglycemia 250.00 Active 2016 Sammi Olivares APRN Diabetes mellitus without mention of complication, type II or unspecified type, not stated as uncontrolled DIABETES MELLITUS, TYPE II, UNCONTROLLED ICD-250.02 Inactive Sammi Olivares APRN Medication List Medication Instructions Start Date Stop Date Generic Name ND Status Provider Patient Instruction K-TAB 10 MEQ ORAL TABLET EXTENDED RELEASE Take one by mouth daily POTASSIUM CHLORIDE 03922715825 Active Sammi Olivares APRN Active FUROSEMIDE 20 MG ORAL TABLET Take one by mouth daily FUROSEMIDE 72843186109 Active Sammi Olivares APRN Active TRESIBA FLEXTOUCH 200 UNIT/ML SUBCUTANEOUS SOLUTION PEN-INJECTOR Take 40 daily. INSULIN DEGLUDEC 55179542450 Active Maliheh Ziglari CAUSTIC OPERATOR Active METFORMIN HCL ER 500 MG ORAL TABLET EXTENDED RELEASE 24 HOUR take 4 a day METFORMIN HCL 43896929750 Active Sammi Olivares APRN Active NOVOLOG FLEXPEN 100 UNIT/ML SUBCUTANEOUS SOLUTION PEN-INJECTOR Take 15units with each meal, add 2u/50 for blood sugars above 150, max dose 40u tid INSULIN ASPART 46150218570 Active Maliheh Ziglari CAUSTIC OPERATOR Active PEN NEEDLES 31G X 5 MM for a day for insulin injections INSULIN PEN NEEDLE 37792963612 Active Maliheh Ziglari CAUSTIC OPERATOR Active TRESIBA FLEXTOUCH 100 UNIT/ML SUBCUTANEOUS SOLUTION PEN-INJECTOR Take 60 units once a day at 6pm, add 2u/day after 3 days until morning sugar is below 130 INSULIN DEGLUDEC 76432683915 No Longer Active Sammi Olivares APRN Active AMBIEN 5 MG ORAL TABLET 2 tabs every hs prn ZOLPIDEM TARTRATE 48132199870 No Longer Active Sammi Olivares APRN Active LANCETS 3 Dx E11.65 LANCETS 98718067480 Active Maliheh Ziglari CAUSTIC OPERATOR Active SHAUNA CONTOUR NEXT TEST IN VITRO STRIP check blood sugars 3x/day DX E11.65 GLUCOSE BLOOD 86611450246 Active Maliheh Ziglari CAUSTIC OPERATOR Active LEVEMIR 100 UNIT/ML SUBCUTANEOUS SOLUTION 40u every hs INSULIN DETEMIR 97197690146 No Longer Active [facility] Sridharglari [facility] Active JANUVIA 100 MG ORAL TABLET Take one by mouth daily SITAGLIPTIN PHOSPHATE 94701234521 Active Sammi Olivares APRN Active OXYCODONE HCL 20 MG ORAL TABLET every 8 hrs as needed OXYCODONE HCL 13190579776 Active [facility] Sridharglari [facility] Active METOPROLOL TARTRATE 25 MG ORAL TABLET by mouth twice a day METOPROLOL TARTRATE 78588930542 No Longer Active [facility] Sridharglari [facility] Active ATORVASTATIN CALCIUM 80 MG ORAL TABLET Take one by mouth daily ATORVASTATIN CALCIUM 51406042167 [facility] ZOCOR 20 MG ORAL TABLET take at bedtime SIMVASTATIN 17417847794 No Longer Active [facility] Sridharglari [facility] Active FUROSEMIDE 40 MG ORAL TABLET by mouth twice a day FUROSEMIDE 52710383161 No Longer Active [facility] Active AMITRIPTYLINE HCL 75 MG ORAL TABLET Take one by mouth daily AMITRIPTYLINE HCL 08184582060 No Longer Active [facility] Sridharari [facility] Active GABAPENTIN 100 MG ORAL CAPSULE take 2 tabs in the morning, 1 tab at lunch and 2 tabs at bedtime GABAPENTIN 34416997894 [facility] Active JANUMET 50-500 MG ORAL TABLET by mouth twice a day SITAGLIPTIN -METFORMIN HCL 10918943457 No Longer Active [facility] Sridharari [facility] Active DIABETA 5 MG ORAL TABLET by mouth twice a day GLYBURIDE 75929673820 [facility] Active SHAUNA CONTOUR TEST IN VITRO STRIP check blood sugars 4x/day 05/17 GLUCOSE BLOOD 28161806375 No Longer Active [facility] Sridharglari CAUSTIC OPERATOR Active TRAZODONE HCL 50 MG ORAL TABLET take at bedtime TRAZODONE HCL 52951149964 Active Rossi Mathews LPN Active CYMBALTA 30 MG ORAL CAPSULE DELAYED RELEASE PARTICLES Take one by mouth daily DULOXETINE HCL 00791699048 No Longer Active Rossi Mathews LPN Active CYMBALTA 60 MG ORAL CAPSULE DELAYED RELEASE PARTICLES Take one by mouth daily DULOXETINE HCL 17574091853 Active Rossi Mathews LPN Active COLACE 100 MG ORAL CAPSULE by mouth twice a day DOCUSATE SODIUM 88323002690 Active Rossi Mathews LPN Active MIRALAX ORAL POWDER 17gm in h2o daily as directed POLYETHYLENE GLYCOL 3350 48669090353 Active Rossi Mathews LPN Active ACETAMINOPHEN 325 MG ORAL TABLET 2 every 6 hrs prn ACETAMINOPHEN 26447922987 Active Rossi Mathews LPN Active [facility] MILK OF MAGNESIA 1200 MG/15ML ORAL SUSPENSION 30 cc prn constipation 2011 MAGNESIUM HYDROXIDE 49199315777 Active Rossi Mathews LPN Active CINNAMON 500 MG ORAL TABLET by mouth twice a day CINNAMON 00654694260 Active Rossi Mathews LPN Active ZINC TABLET Take one by mouth daily ZINC TABS 42973980252 Active Rossi Mathews LPN Active CALCIUM + D 600-200 MG-UNIT TABS Take one by mouth daily CALCIUM CARBONATE-VITAMIN D 94806193913 Active Rossi Mathews LPN Active [facility] FOLIC ACID 400 MCG ORAL TABLET Take one by mouth daily FOLIC ACID 83631798307 Active Rossi Mathews LPN Active REMERON 15 MG ORAL TABLET take at bedtime MIRTAZAPINE 18927994239 Active Rossi Mathews LPN Active ADULT ASPIRIN EC LOW STRENGTH 81 MG ORAL TABLET DELAYED RELEASE Take one by mouth daily ASPIRIN 16532263910 Active Rossi Mathews LPN Active TRAZODONE HCL 100 MG ORAL TABLET take 1-2 tabs at bedtime as needed TRAZODONE HCL 18668374555 Active Dale Brinkmeyer Active ALPRAZOLAM 0.25 MG ORAL TABLET Take one by mouth 3 times daily, morning, afternoon and evening.] ALPRAZOLAM 24616005746 Active Dale Brinkmeyer Active LISINOPRIL 10 MG ORAL TABLET Take one by mouth daily LISINOPRIL 86080846542 Active Dale Brinkmeyer Active CYMBALTA 30 MG ORAL CAPSULE DELAYED RELEASE PARTICLES Take one by mouth daily CYMBALTA 30 MG ORAL CAPSULE DELAYED RELEASE PARTICLES 735868 DULOXETINE HCL Inactive SHAUNA CONTOUR TEST IN VITRO STRIP check blood sugars 4x/day 05/17 SHAUNA CONTOUR TEST IN VITRO STRIP GLUCOSE BLOOD Inactive DIABETA 5 MG ORAL TABLET by mouth twice a day DIABETA 5 MG ORAL TABLET 225453 GLYBURIDE Inactive JANUMET 50-500 MG ORAL TABLET by mouth twice a day JANUMET 50- 500 MG ORAL TABLET SITAGLIPTIN-METFORMIN HCL Inactive GABAPENTIN 100 MG ORAL CAPSULE take 2 tabs in the morning, 1 tab at lunch and 2 tabs at bedtime GABAPENTIN 100 MG ORAL CAPSULE 601426 GABAPENTIN Inactive AMITRIPTYLINE HCL 75 MG ORAL TABLET Take one by mouth daily AMITRIPTYLINE HCL 75 MG ORAL TABLET 192206 AMITRIPTYLINE HCL Inactive FUROSEMIDE 40 MG ORAL TABLET by mouth twice a day FUROSEMIDE 40 MG ORAL TABLET 176265 FUROSEMIDE Inactive ZOCOR 20 MG ORAL TABLET take at bedtime ZOCOR 20 MG ORAL TABLET 173507 SIMVASTATIN Inactive METOPROLOL TARTRATE 25 MG ORAL TABLET by mouth twice a day METOPROLOL TARTRATE 25 MG ORAL TABLET 909059 METOPROLOL TARTRATE Inactive LEVEMIR 100 UNIT/ML SUBCUTANEOUS SOLUTION 40u every hs LEVEMIR 100 UNIT/ML SUBCUTANEOUS SOLUTION INSULIN DETEMIR Inactive AMBIEN 5 MG ORAL TABLET 2 tabs every hs prn AMBIEN 5 MG ORAL TABLET 281538 ZOLPIDEM TARTRATE Inactive TRESIBA FLEXTOUCH 100 UNIT/ML SUBCUTANEOUS SOLUTION PEN-INJECTOR Take 60 units once a day at 6pm, add 2u/day after 3 days until morning sugar is below 130 TRESIBA FLEXTOUCH 100 UNIT/ML SUBCUTANEOUS SOLUTION PEN-INJECTOR INSULIN DEGLUDEC Inactive Vital Signs Date Name Value Unit Range Description blood pressure, diastolic 80 mm[Hg] BP coronado [...] rate weight E&M 279 [lb_av] Weight Measured blood pressure, diastolic 70 mm[Hg] BP coronado [...] outside lab added to flowsheet - Chemistry hemoglobin A1C, blood, as % of total hemoglobin 11.2 % blood glucose 300 mg/dL creatinine, serum 1.00 mg/dL Office Visit: Diabetes Visit - Basic [...] HDL cholesterol, serum, target level 35 mg/dL home glucose monitor utilized Yes cholesterol, target level 200 mg/dL triglyceride, target level 200 mg/dL HDL cholesterol, serum, target level 35 mg/dL cholesterol, target level 200 mg/dL triglyceride, target level 200 mg/dL HDL cholesterol, serum, target level 35 mg/dL Encounters Code Encounter Date Provider Facility CPT-78295 Level 3 Est. Patient 14:55:50 LIVE SOURCE OPERATOR Sammi [facility] CPT-50349 Level 3 Est. Patient 10:01:00 CDT [facility] CPT-89905 Level 4 Est. Patient 10:17:45 CDT [facility] CPT-40158 Level 4 Est. Patient 17:01:22 CDT Sammi [facility] CPT-55265 Level 5 Est. Patient 16:18:07 CDT [facility] CPT-60002 Level 3 Est. Patient 17:20:16 CDT [facility] CPT-50530 Level 5 Est. Patient 09:44:15 CDT [facility] CPT-64414 Level 4 New Patient 07:56:40 LIVE SOURCE OPERATOR Kevin Gramajo MD [facility] Procedures Code Procedure Name Date Entry Date Standard Description CPT-54887 First Vx - Ix admin via ID IM or jet injects without counseling by physician 14:59:49 LIVE SOURCE OPERATOR CPT-38757 Fluzone Quadrivalent Intramuscular Suspension 0.5 ML 14: 59:49 LIVE SOURCE OPERATOR CPT-91005 Bladder Scan 17:20:16 CDT CPT-A4351 Female Cath 07:56:40 LIVE SOURCE OPERATOR CPT-28388 Cystoscopy 07:56:40 LIVE SOURCE OPERATOR
--- OUTSIDE RECORDS SUMMARY | 2018-10-10 10:22 | XMS REPORT | Clinical Summary ---
Author Author Admin, CARMELO Organization [facility] Address Unknown Phone Unavailable Allergies, Adverse [...] TYPE II, UNCONTROLLED 250.02 Inactive Sammi Olivares DOOR PANELER Diabetes mellitus without mention of complication, type II or unspecified type, uncontrolled NEUROGENIC BLADDER 596.54 Active Rena TEMPLETON Neurogenic bladder NOS INCOMPLETE BLADDER EMPTYING 788.21 Active Rena GIBSONP Incomplete bladder emptying firebreak cutter use of insulin treatment V58.67 Active Rena [...] Take one by mouth daily POTASSIUM CHLORIDE 72118469395 Active Sammi Olivares APRN Active FUROSEMIDE 20 MG ORAL TABLET Take one by mouth daily FUROSEMIDE 43034758109 Active Sammi Olivares APRN Active TRESIBA FLEXTOUCH 200 UNIT/ML SUBCUTANEOUS SOLUTION PEN-INJECTOR Take 40 daily. INSULIN DEGLUDEC 89916303964 Active Maliheh Ziglari SOIL BIOLOGY TEACHER Active METFORMIN HCL ER 500 MG ORAL TABLET EXTENDED RELEASE 24 HOUR take 4 a day METFORMIN HCL 29185709337 Active Sammi Olivares APRN Active NOVOLOG FLEXPEN 100 UNIT/ML SUBCUTANEOUS SOLUTION PEN-INJECTOR Take 15units with each meal, add 2u/50 for blood sugars above 150, max dose 40u tid INSULIN ASPART 44281660503 Active Maliheh Ziglari SOIL BIOLOGY TEACHER Active PEN NEEDLES 31G X 5 MM for a day for insulin injections INSULIN PEN NEEDLE 77538859449 Active Maliheh Ziglari SOIL BIOLOGY TEACHER Active TRESIBA FLEXTOUCH 100 UNIT/ML SUBCUTANEOUS SOLUTION PEN-INJECTOR Take 60 units once a day at 6pm, add 2u/day after 3 days until morning sugar is below 130 INSULIN DEGLUDEC 81037241956 No Longer Active Sammi Olivares APRN Active AMBIEN 5 MG ORAL TABLET 2 tabs every hs prn ZOLPIDEM TARTRATE 68625417782 No Longer Active Sammi Olivares APRN Active LANCETS 3 Dx E11.65 LANCETS 07833595421 Active Maliheh Ziglari SOIL BIOLOGY TEACHER Active SHAUNA CONTOUR NEXT TEST IN VITRO STRIP check blood sugars 3x/day DX E11.65 GLUCOSE BLOOD 17691936335 Active Maliheh Ziglari SOIL BIOLOGY TEACHER Active LEVEMIR 100 UNIT/ML SUBCUTANEOUS SOLUTION 40u every hs INSULIN DETEMIR 51284649079 No Longer Active [facility] Sridharglari [facility] Active JANUVIA 100 MG ORAL TABLET Take one by mouth daily SITAGLIPTIN PHOSPHATE 19353546836 Active Sammi Olivares APRN Active OXYCODONE HCL 20 MG ORAL TABLET every 8 hrs as needed OXYCODONE HCL 37550071290 Active [facility] Sridharglari [facility] Active METOPROLOL TARTRATE 25 MG ORAL TABLET by mouth twice a day METOPROLOL TARTRATE 40541525087 No Longer Active [facility] Sridharglari [facility] Active ATORVASTATIN CALCIUM 80 MG ORAL TABLET Take one by mouth daily ATORVASTATIN CALCIUM 35403530770 Active [facility] ZOCOR 20 MG ORAL TABLET take at bedtime SIMVASTATIN 45262039700 No Longer Active [facility] Sridharglari [facility] Active FUROSEMIDE 40 MG ORAL TABLET by mouth twice a day FUROSEMIDE 55639995886 No Longer Active [facility] Active AMITRIPTYLINE HCL 75 MG ORAL TABLET Take one by mouth daily AMITRIPTYLINE HCL 30193208690 No Longer Active [facility] Sridharari [facility] Active GABAPENTIN 100 MG ORAL CAPSULE take 2 tabs in the morning, 1 tab at lunch and 2 tabs at bedtime GABAPENTIN 40579695988 No [facility] Active JANUMET 50-500 MG ORAL TABLET by mouth twice a day SITAGLIPTIN -METFORMIN HCL 62113670847 No Longer Active [facility] Sridharari [facility] Active DIABETA 5 MG ORAL TABLET by mouth twice a day GLYBURIDE 52473250998 No Longer [facility] SOIL BIOLOGY TEACHER Active SHAUNA CONTOUR TEST IN VITRO STRIP check blood sugars 4x/day 05/17 GLUCOSE BLOOD 80906397420 No Longer Active [facility] Sridharglari SOIL BIOLOGY TEACHER Active TRAZODONE HCL 50 MG ORAL TABLET take at bedtime TRAZODONE HCL 04020905747 Active Rossi Mathews LPN Active CYMBALTA 30 MG ORAL CAPSULE DELAYED RELEASE PARTICLES Take one by mouth daily DULOXETINE HCL 75927149984 No Longer Active Rossi Mathews LPN Active CYMBALTA 60 MG ORAL CAPSULE DELAYED RELEASE PARTICLES Take one by mouth daily DULOXETINE HCL 26842503661 Active Rossi Mathews LPN Active COLACE 100 MG ORAL CAPSULE by mouth twice a day DOCUSATE SODIUM 86032316786 Active Rossi Mathews LPN Active MIRALAX ORAL POWDER 17gm in h2o daily as directed POLYETHYLENE GLYCOL 3350 99656315281 Active Rossi Mathews LPN Active ACETAMINOPHEN 325 MG ORAL TABLET 2 every 6 hrs prn ACETAMINOPHEN 23852883683 Active Rossi Mathews LPN Active [facility] MILK OF MAGNESIA 1200 MG/15ML ORAL SUSPENSION 30 cc prn constipation 2011 MAGNESIUM HYDROXIDE 89514896254 Active Rossi Mathews LPN Active CINNAMON 500 MG ORAL TABLET by mouth twice a day CINNAMON 18323579595 Active Rossi Mathews LPN Active ZINC TABLET Take one by mouth daily ZINC TABS 95771965146 Active Rossi Mathews LPN Active CALCIUM + D 600-200 MG-UNIT TABS Take one by mouth daily CALCIUM CARBONATE-VITAMIN D 96125172914 Active Rossi Mathews LPN Active [facility] FOLIC ACID 400 MCG ORAL TABLET Take one by mouth daily FOLIC ACID 08759427350 Active Rossi Mathews LPN Active REMERON 15 MG ORAL TABLET take at bedtime MIRTAZAPINE 75466804723 Active Rossi Mathews LPN Active ADULT ASPIRIN EC LOW STRENGTH 81 MG ORAL TABLET DELAYED RELEASE Take one by mouth daily ASPIRIN 78132669231 Active Rossi Mathews LPN Active TRAZODONE HCL 100 MG ORAL TABLET take 1-2 tabs at bedtime as needed TRAZODONE HCL 63354392194 Active Dale Brinkmeyer Active ALPRAZOLAM 0.25 MG ORAL TABLET Take one by mouth 3 times daily, morning, afternoon and evening.] ALPRAZOLAM 52260269526 Active Dale Brinkmeyer Active LISINOPRIL 10 MG ORAL TABLET Take one by mouth daily LISINOPRIL 82812646082 Active Dale Brinkmeyer Active CYMBALTA 30 MG ORAL CAPSULE DELAYED RELEASE PARTICLES Take one by mouth daily CYMBALTA 30 MG ORAL CAPSULE DELAYED RELEASE PARTICLES 510208 DULOXETINE HCL Inactive SHAUNA CONTOUR TEST IN VITRO STRIP check blood sugars 4x/day 05/17 SHAUNA CONTOUR TEST IN VITRO STRIP GLUCOSE BLOOD Inactive DIABETA 5 MG ORAL TABLET by mouth twice a day DIABETA 5 MG ORAL TABLET 110986 GLYBURIDE Inactive JANUMET 50-500 MG ORAL TABLET by mouth twice a day JANUMET 50- 500 MG ORAL TABLET SITAGLIPTIN-METFORMIN HCL Inactive GABAPENTIN 100 MG ORAL CAPSULE take 2 tabs in the morning, 1 tab at lunch and 2 tabs at bedtime GABAPENTIN 100 MG ORAL CAPSULE 682797 GABAPENTIN Inactive AMITRIPTYLINE HCL 75 MG ORAL TABLET Take one by mouth daily AMITRIPTYLINE HCL 75 MG ORAL TABLET 634480 AMITRIPTYLINE HCL Inactive FUROSEMIDE 40 MG ORAL TABLET by mouth twice a day FUROSEMIDE 40 MG ORAL TABLET 493248 FUROSEMIDE Inactive ZOCOR 20 MG ORAL TABLET take at bedtime ZOCOR 20 MG ORAL TABLET 451253 SIMVASTATIN Inactive METOPROLOL TARTRATE 25 MG ORAL TABLET by mouth twice a day METOPROLOL TARTRATE 25 MG ORAL TABLET 611238 METOPROLOL TARTRATE Inactive LEVEMIR 100 UNIT/ML SUBCUTANEOUS SOLUTION 40u every hs LEVEMIR 100 UNIT/ML SUBCUTANEOUS SOLUTION INSULIN DETEMIR Inactive AMBIEN 5 MG ORAL TABLET 2 tabs every hs prn AMBIEN 5 MG ORAL TABLET 320911 ZOLPIDEM TARTRATE Inactive TRESIBA FLEXTOUCH 100 UNIT/ML [...] mg/dL Encounters Code Encounter Date Provider Facility CPT-53212 Level 3 Est. Patient 14:55:50 NC MANAGER Sammi [facility] CPT-63454 Level 3 Est. Patient 10:01:00 CDT [facility] CPT-77590 Level 4 Est. Patient 10:17:45 CDT [facility] CPT-36917 Level 4 Est. Patient 17:01:22 CDT Sammi [facility] CPT-04202 Level 5 Est. Patient 16:18:07 CDT [facility] CPT-16188 Level 3 Est. Patient 17:20:16 CDT [facility] CPT-50127 Level 5 Est. Patient 09:44:15 CDT [facility] CPT-10390 Level 4 New Patient 07:56:40 NC MANAGER Kevin Gramajo MD [facility] Procedures Code Procedure Name Date Entry Date Standard Description CPT-32275 First Vx - Ix admin via ID IM or jet injects without counseling by physician 14:59:49 NC MANAGER CPT-18383 Fluzone Quadrivalent Intramuscular Suspension 0.5 ML 14: 59:49 NC MANAGER CPT-36056 Bladder Scan 17:20:16 CDT CPT-A4351 Female Cath 07:56:40 NC MANAGER CPT-28906 Cystoscopy 07:56:40 NC MANAGER
--- OUTSIDE RECORDS SUMMARY | 2018-10-10 10:23 | XMS REPORT | Clinical Summary ---
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 INSULIN DEGLUDEC 93909987405 Active Maliheh Ziglari MARINE STRUCTURAL WELDER Active METFORMIN HCL ER 500 MG ORAL TABLET EXTENDED RELEASE 24 HOUR take 4 a day METFORMIN HCL 51346230069 Active Sammi Olivares APRN Active NOVOLOG FLEXPEN 100 UNIT/ML SUBCUTANEOUS SOLUTION PEN-INJECTOR Take 15units with each meal, add 2u/50 for blood sugars above 150, max dose 40u tid INSULIN ASPART 27714664237 Active Maliheh Ziglari MARINE STRUCTURAL WELDER Active PEN NEEDLES 31G X 5 MM for a day for insulin injections INSULIN PEN NEEDLE 21412179275 Active Maliheh Ziglari MARINE STRUCTURAL WELDER Active TRESIBA FLEXTOUCH 100 UNIT/ML SUBCUTANEOUS SOLUTION PEN-INJECTOR Take 60 units once a day at 6pm, add 2u/day after 3 days until morning sugar is below 130 INSULIN DEGLUDEC 55908825624 No Longer Active Sammi Olivares APRN Active AMBIEN 5 MG ORAL TABLET 2 tabs every hs prn ZOLPIDEM TARTRATE 80113906590 No Longer Active Sammi Olivares APRN Active LANCETS 3 Dx E11.65 LANCETS 06518426586 Active Maliheh Ziglari MARINE STRUCTURAL WELDER Active SHAUNA CONTOUR NEXT TEST IN VITRO STRIP check blood sugars 3x/day DX E11.65 GLUCOSE BLOOD 34930224272 Active Maliheh Ziglari MARINE STRUCTURAL WELDER Active LEVEMIR 100 UNIT/ML SUBCUTANEOUS SOLUTION 40u every hs INSULIN DETEMIR 39410793485 No Longer Active [facility] Sridharglari [place] Active JANUVIA 100 MG ORAL TABLET Take one by mouth daily SITAGLIPTIN PHOSPHATE 20010087671 Active Sammi Olivares APRN Active OXYCODONE HCL 20 MG ORAL TABLET every 8 hrs as needed OXYCODONE HCL 19354498350 Active [facility] Sridharglari [place] Active METOPROLOL TARTRATE 25 MG ORAL TABLET by mouth twice a day METOPROLOL TARTRATE 55124061583 No Longer Active [facility] Sridharglari [place] Active ATORVASTATIN CALCIUM 80 MG ORAL TABLET Take one by mouth daily ATORVASTATIN CALCIUM 60470424032 Active [facility] ZOCOR 20 MG ORAL TABLET take at bedtime SIMVASTATIN 53400358387 No Longer Active [facility] Sridharglari [place] Active FUROSEMIDE 40 MG ORAL TABLET by mouth twice a day FUROSEMIDE 61017571855 No Longer Active [facility] Active AMITRIPTYLINE HCL 75 MG ORAL TABLET Take one by mouth daily AMITRIPTYLINE HCL 95099826950 No Longer Active [facility] Sridharari [place] Active GABAPENTIN 100 MG ORAL CAPSULE take 2 tabs in the morning, 1 tab at lunch and 2 tabs at bedtime GABAPENTIN 46030935503 No Longer [facility] [place] Active JANUMET 50-500 MG ORAL TABLET by mouth twice a day SITAGLIPTIN -METFORMIN HCL 01780275669 No Longer Active [facility] Sridharari [place] Active DIABETA 5 MG ORAL TABLET by mouth twice a day GLYBURIDE 02766174869 No Longer [facility] MARINE STRUCTURAL WELDER Active SHAUNA CONTOUR TEST IN VITRO STRIP check blood sugars 4x/day 05/17 GLUCOSE BLOOD 08435632832 No Longer Active [facility] Sridharglari MARINE STRUCTURAL WELDER Active TRAZODONE HCL 50 MG ORAL TABLET take at bedtime TRAZODONE HCL 65026075486 Active Rossi Mathews LPN Active CYMBALTA 30 MG ORAL CAPSULE DELAYED RELEASE PARTICLES Take one by mouth daily DULOXETINE HCL 96509610627 No Longer Active Rossi Mathews LPN Active CYMBALTA 60 MG ORAL CAPSULE DELAYED RELEASE PARTICLES Take one by mouth daily DULOXETINE HCL 63892948624 Active Rossi Mathews LPN Active COLACE 100 MG ORAL CAPSULE by mouth twice a day DOCUSATE SODIUM 62621008311 Active Rossi Mathews LPN Active MIRALAX ORAL POWDER 17gm in h2o daily as directed POLYETHYLENE GLYCOL 3350 75071853101 Active Rossi Mathews LPN Active ACETAMINOPHEN 325 MG ORAL TABLET 2 every 6 hrs prn ACETAMINOPHEN 77761663536 Active Rossi Mathews LPN Active [facility] MILK OF MAGNESIA 1200 MG/15ML ORAL SUSPENSION 30 cc prn constipation 2011 MAGNESIUM HYDROXIDE 67004326423 Active Rossi Mathews LPN Active CINNAMON 500 MG ORAL TABLET by mouth twice a day CINNAMON 14152619086 Active Rossi Mathews LPN Active ZINC TABLET Take one by mouth daily ZINC TABS 16754844640 Active Rossi Mathews LPN Active CALCIUM + D 600-200 MG-UNIT TABS Take one by mouth daily CALCIUM CARBONATE-VITAMIN D 85595656385 Active Rossi Mathews LPN Active [facility] FOLIC ACID 400 MCG ORAL TABLET Take one by mouth daily FOLIC ACID 97857549385 Active Rossi Mathews LPN Active REMERON 15 MG ORAL TABLET take at bedtime MIRTAZAPINE 33310863486 Active Rossi Mathews LPN Active ADULT ASPIRIN EC LOW STRENGTH 81 MG ORAL TABLET DELAYED RELEASE Take one by mouth daily ASPIRIN 70976283609 Active Rossi Mathews LPN Active TRAZODONE HCL 100 MG ORAL TABLET take 1-2 tabs at bedtime as needed TRAZODONE HCL 83926018238 Active Dale Brinkmeyer Active ALPRAZOLAM 0.25 MG ORAL TABLET Take one by mouth 3 times daily, morning, afternoon and evening.] ALPRAZOLAM 14416305155 Active Dale Brinkmeyer Active LISINOPRIL 10 MG ORAL TABLET Take one by mouth daily LISINOPRIL 64262806298 Active Dale Brinkmeyer Active CYMBALTA 30 MG ORAL CAPSULE DELAYED RELEASE PARTICLES Take one by mouth daily CYMBALTA 30 MG ORAL CAPSULE DELAYED RELEASE PARTICLES 654275 DULOXETINE HCL Inactive SHAUNA CONTOUR TEST IN VITRO STRIP check blood sugars 4x/day 05/17 SHAUNA CONTOUR TEST IN VITRO STRIP GLUCOSE BLOOD Inactive DIABETA 5 MG ORAL TABLET by mouth twice a day DIABETA 5 MG ORAL TABLET 665548 GLYBURIDE Inactive JANUMET 50-500 MG ORAL TABLET by mouth twice a day JANUMET 50- 500 MG ORAL TABLET SITAGLIPTIN-METFORMIN HCL Inactive GABAPENTIN 100 MG ORAL CAPSULE take 2 tabs in the morning, 1 tab at lunch and 2 tabs at bedtime GABAPENTIN 100 MG ORAL CAPSULE 062841 GABAPENTIN Inactive AMITRIPTYLINE HCL 75 MG ORAL TABLET Take one by mouth daily AMITRIPTYLINE HCL 75 MG ORAL TABLET 543378 AMITRIPTYLINE HCL Inactive FUROSEMIDE 40 MG ORAL TABLET by mouth twice a day FUROSEMIDE 40 MG ORAL TABLET 421656 FUROSEMIDE Inactive ZOCOR 20 MG ORAL TABLET take at bedtime ZOCOR 20 MG ORAL TABLET 678527 SIMVASTATIN Inactive METOPROLOL TARTRATE 25 MG ORAL TABLET by mouth twice a day METOPROLOL TARTRATE 25 MG ORAL TABLET 119732 METOPROLOL TARTRATE Inactive LEVEMIR 100 UNIT/ML SUBCUTANEOUS SOLUTION 40u every hs LEVEMIR 100 UNIT/ML SUBCUTANEOUS SOLUTION INSULIN DETEMIR Inactive AMBIEN 5 MG ORAL TABLET 2 tabs every hs prn AMBIEN 5 MG ORAL TABLET 715675 ZOLPIDEM TARTRATE Inactive TRESIBA FLEXTOUCH 100 UNIT/ML [...] Measured blood pressure, diastolic 80 mm[Hg] BP [place] blood pressure, systolic 150 mm[Hg] BP sys [...] glucose 300 mg/dL creatinine, serum 1.00 mg/dL Chart Maintenance: outside labs added to flowsheet [...] mg/dL Encounters Code Encounter Date Provider Facility CPT-02007 Level 3 Est. Patient 14:55:50 EXTENSION COURSE COORDINATOR [employer] [facility] CPT-86924 Level 3 Est. Patient 10:01:00 CDT [facility] CPT-79932 Level 4 Est. Patient 10:17:45 CDT [facility] CPT-59783 Level 4 Est. Patient 17:01:22 CDT [employer] [facility] CPT-86878 Level 5 Est. Patient 16:18:07 CDT [facility] CPT-13563 Level 3 Est. Patient 17:20:16 CDT [facility] CPT-63687 Level 5 Est. Patient 09:44:15 CDT Rena Regalado JARETH [facility] CPT-27026 Level 4 New Patient 07:56:40 EXTENSION COURSE COORDINATOR Kevin Gramajo MD [facility] Procedures Code Procedure Name Date Entry Date Standard Description CPT-45976 First Vx - Ix admin via ID IM or jet injects without counseling by physician 14:59:49 EXTENSION COURSE COORDINATOR CPT-48599 Fluzone Quadrivalent Intramuscular Suspension 0.5 ML 14: 59:49 EXTENSION COURSE COORDINATOR CPT-86845 Bladder Scan 17:20:16 CDT CPT-A4351 Female Cath 07:56:40 EXTENSION COURSE COORDINATOR CPT-36783 Cystoscopy 07:56:40 EXTENSION COURSE COORDINATOR
--- OUTSIDE RECORDS SUMMARY | 2018-10-10 10:23 | XMS REPORT | Clinical Summary ---
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 Rena TEMPLETON Diabetes mellitus with neurological manifestations, type II or unspecified type, not stated as uncontrolled Medication List Medication Instructions Start Date Stop Date Generic Name NDC Status Provider Patient Instruction METFORMIN HCL 500 MG [id number] take 4 a day METFORMIN HCL 95491655940 Active Maliheh Ziglari RADIATION PROTECTION SPECIALIST Active NOVOLOG FLEXPEN 100 UNIT/ML SOPN Take 15units with each meal, add 2u/50 for blood sugars above 150, max dose 40u tid INSULIN ASPART 86313040443 Active Jasmeetiheh Ziglari RADIATION PROTECTION SPECIALIST Active PEN NEEDLES 31G X 5 MM MISC for a day for insulin injections INSULIN PEN NEEDLE 16804978676 Active Maliheh Ziglari RADIATION PROTECTION SPECIALIST Active TRESIBA FLEXTOUCH 200 UNIT/ML SC SOPN Take 45 daily. INSULIN DEGLUDEC 60140480272 Active Maliheh Ziglari RADIATION PROTECTION SPECIALIST Active TRESIBA FLEXTOUCH 100 UNIT/ML SC SOPN Take 60 units once a day at 6pm, add 2u/ day after 3 days until morning sugar is below 130 INSULIN DEGLUDEC 24537475230 No Longer Active Sammi Olivares APRN Active AMBIEN 5 MG ORAL TABS 2 tabs every hs prn ZOLPIDEM TARTRATE 52581205063 No Longer Active Sammi Olivares APRN Active LANCETS MISC 3 Dx E11.65 LANCETS 77414244559 Active Maliheh Ziglari RADIATION PROTECTION SPECIALIST Active SHAUNA CONTOUR NEXT TEST INVITR STRP check blood sugars 3x/day DX E11.65 05/17 GLUCOSE BLOOD 47853176424 Active Rena Ziglari RADIATION PROTECTION SPECIALIST Active LEVEMIR 100 UNIT/ML SOLN 40u every hs INSULIN DETEMIR 37673988951 No Longer Active Maliheh Ziglari RADIATION PROTECTION SPECIALIST Active JANUVIA 100 MG TABS Take one by mouth daily SITAGLIPTIN PHOSPHATE 51388427190 Active Sammi [employer] TELEVISION SCRIPT WRITER Active OXYCODONE HCL 20 MG ORAL TABS every 8 hrs as needed OXYCODONE HCL 77116637720 Active Malgrey Ziglari RADIATION PROTECTION SPECIALIST Active METOPROLOL TARTRATE 25 MG TABS by mouth twice a day METOPROLOL TARTRATE 85997953490 No Longer Active Maliheh Ziglari RADIATION PROTECTION SPECIALIST Active ATORVASTATIN CALCIUM 80 MG ORAL TABS Take one by mouth daily ATORVASTATIN CALCIUM 83314588581 [facility] RADIATION PROTECTION SPECIALIST Active ZOCOR 20 MG TABS take at bedtime SIMVASTATIN 09538102752 No Longer [facility] RADIATION PROTECTION SPECIALIST Active FUROSEMIDE 40 MG TABS by mouth twice a day FUROSEMIDE 37283649011 No Longer [facility] RADIATION PROTECTION SPECIALIST Active AMITRIPTYLINE HCL 75 MG TABS Take one by mouth daily AMITRIPTYLINE HCL 35587664271 No Longer [facility] Active GABAPENTIN 100 MG CAPS take 2 tabs in the morning, 1 tab at lunch and 2 tabs at bedtime GABAPENTIN 24422027235 No Longer [facility] RADIATION PROTECTION SPECIALIST Active JANUMET 50-500 MG TABS by mouth twice a day SITAGLIPTIN- METFORMIN HCL 13583059309 No Longer Active [facility] Active DIABETA 5 MG TABS by mouth twice a day GLYBURIDE 56883909947 No Longer [facility] RADIATION PROTECTION SPECIALIST Active SHAUNA CONTOUR TEST STRP check blood sugars 4x/day GLUCOSE BLOOD 77530993368 No Longer [facility] RADIATION PROTECTION SPECIALIST Active TRAZODONE HCL 50 MG TABS take at bedtime TRAZODONE HCL 94668798286 Active Rossi Mathews LPN Active CYMBALTA 30 MG CPEP Take one by mouth daily DULOXETINE HCL 96093102260 No Longer Active Rossi Mathews LPN Active CYMBALTA 60 MG CPEP Take one by mouth daily DULOXETINE HCL 12284847737 Active Rossi Mathews LPN Active COLACE 100 MG CAPS by mouth twice a day DOCUSATE SODIUM 42834620489 Active Rossi Mathews LPN Active MIRALAX POWD 17gm in h2o daily as directed POLYETHYLENE GLYCOL 3350 63245946375 Active Rossi Mathews LPN Active ACETAMINOPHEN 325 MG TABS 2 every 6 hrs prn ACETAMINOPHEN 63501478913 Active Rossi Reid PRICE Active [facility] MILK OF MAGNESIA 1200 MG/15ML SUSP 30 cc prn constipation MAGNESIUM HYDROXIDE 56008289875 Active Rossi Mathews LPN Active CINNAMON 500 MG TABS by mouth twice a day CINNAMON 47668696999 Active Rossi Mathews LPN Active ZINC TABS Take one by mouth daily ZINC TABS 93657673661 Active Rossi Mathews LPN Active CALCIUM + D 600-200 MG-UNIT TABS Take one by mouth daily CALCIUM CARBONATE-VITAMIN D 25353004434 Active Rossi Mathews LPN Active [facility] FOLIC ACID 400 MCG TABS Take one by mouth daily FOLIC ACID 43674713718 Active Rossi Mathews LPN Active REMERON 15 MG TABS take at bedtime MIRTAZAPINE 27148682630 Active Rossi Mathews LPN Active ADULT ASPIRIN EC LOW STRENGTH 81 MG TBEC Take one by mouth daily ASPIRIN 31953304770 Active Rossi Reid PRICE Active TRAZODONE HCL 100 MG TABS take 1-2 tabs at bedtime as needed TRAZODONE HCL 48368102801 Active Dale Pittman Active ALPRAZOLAM 0.25 MG TABS Take one by mouth 3 times daily, morning, afternoon and evening.] ALPRAZOLAM 31144910207 Active Dale Pittman Active LISINOPRIL 10 MG TABS Take one by mouth daily LISINOPRIL 16668864881 Active Dale Pittman Active CYMBALTA 30 MG CPEP Take one by mouth daily CYMBALTA 30 MG CPEP 827215 DULOXETINE HCL Inactive SHAUNA CONTOUR TEST STRP [...] tabs at bedtime GABAPENTIN 100 MG CAPS 329061 GABAPENTIN Inactive AMITRIPTYLINE HCL 75 MG TABS Take one by mouth daily AMITRIPTYLINE HCL 75 MG TABS 747175 AMITRIPTYLINE HCL Inactive FUROSEMIDE 40 MG TABS by mouth twice a day FUROSEMIDE 40 MG TABS 636515 FUROSEMIDE Inactive ZOCOR 20 MG TABS take at bedtime ZOCOR 20 MG TABS 924669 SIMVASTATIN Inactive METOPROLOL TARTRATE 25 MG TABS by mouth twice a day METOPROLOL TARTRATE 25 MG TABS 009982 METOPROLOL TARTRATE Inactive LEVEMIR 100 UNIT/ML SOLN 40u every hs LEVEMIR 100 UNIT/ML SOLN INSULIN DETEMIR Inactive AMBIEN 5 MG ORAL TABS 2 tabs every hs prn AMBIEN 5 MG ORAL TABS 450384 ZOLPIDEM TARTRATE Inactive TRESIBA FLEXTOUCH 100 UNIT/ML [...] mg/dL Encounters Code Encounter Date Provider Facility CPT-79373 Level 4 Est. Patient 10:17:45 CDT [facility] CPT-49578 Level 4 Est. Patient 17:01:22 CDT Sammi Olivares [facility] CPT-12899 Level 5 Est. Patient 16:18:07 CDT [facility] CPT-78070 Level 3 Est. Patient 17:20:16 CDT [facility] CPT-98415 Level 5 Est. Patient 09:44:15 CDT [facility] CPT-16837 Level 4 New Patient 07:56:40 PRIVATE CLIENT ADVISOR Kevin Gramajo MD [facility] Procedures Code Procedure Name Date Entry Date Standard Description CPT-27398 Bladder Scan 17:20:16 CDT CPT-A4351 Female Cath 07:56:40 PRIVATE CLIENT ADVISOR CPT-79113 Cystoscopy 07:56:40 PRIVATE CLIENT ADVISOR
--- OUTSIDE RECORDS SUMMARY | 2018-10-10 10:23 | XMS REPORT | Clinical Summary ---
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 INSULIN DEGLUDEC 31946648527 Active Maliheh Ziglari INVESTMENT UNDERWRITER Active METFORMIN HCL 500 MG [id number] take 4 a day METFORMIN HCL 94050346914 Active Maliheh Ziglari INVESTMENT UNDERWRITER Active NOVOLOG FLEXPEN 100 UNIT/ML SOPN Take 15units with each meal, add 2u/50 for blood sugars above 150, max dose 40u tid INSULIN ASPART 34257875312 Active Jasmeetiheh Ziglari INVESTMENT UNDERWRITER Active PEN NEEDLES 31G X 5 MM MISC for a day for insulin injections INSULIN PEN NEEDLE 92294668265 Active Rena Ziglari INVESTMENT UNDERWRITER Active TRESIBA FLEXTOUCH 100 UNIT/ML SC SOPN Take 60 units once a day at 6pm, add 2u/ day after 3 days until morning sugar is below 130 INSULIN DEGLUDEC 05565757835 No Longer Active Sammi Olivares APRN Active AMBIEN 5 MG ORAL TABS 2 tabs every hs prn ZOLPIDEM TARTRATE 45318264690 No Longer Active Sammi Olivares APRN Active LANCETS MISC 3 Dx E11.65 LANCETS 17533569143 Active Jasmeetgregever Ziglari INVESTMENT UNDERWRITER Active SHAUNA CONTOUR NEXT TEST INVITR STRP check blood sugars 3x/day DX E11.65 05/17 GLUCOSE BLOOD 93614909534 Active Jasmeetgregever Sridharglari INVESTMENT UNDERWRITER Active LEVEMIR 100 UNIT/ML SOLN 40u every hs INSULIN DETEMIR 15232182425 No Longer Active Jasmeetgregever Ziglari INVESTMENT UNDERWRITER Active JANUVIA 100 MG TABS Take one by mouth daily SITAGLIPTIN PHOSPHATE 74083612639 Active Sammi Peetz PRETZEL PACKER Active OXYCODONE HCL 20 MG ORAL TABS every 8 hrs as needed OXYCODONE HCL 01905915616 Active Jasmeetgregever Sridharglari INVESTMENT UNDERWRITER Active METOPROLOL TARTRATE 25 MG TABS by mouth twice a day METOPROLOL TARTRATE 91041881106 No Longer Active Maliheh Ziglari INVESTMENT UNDERWRITER Active ATORVASTATIN CALCIUM 80 MG ORAL TABS Take one by mouth daily ATORVASTATIN CALCIUM 37803823816 [facility] INVESTMENT UNDERWRITER Active ZOCOR 20 MG TABS take at bedtime SIMVASTATIN 97296743955 No Longer [facility] INVESTMENT UNDERWRITER Active FUROSEMIDE 40 MG TABS by mouth twice a day FUROSEMIDE 86308040114 No Longer [facility] INVESTMENT UNDERWRITER Active AMITRIPTYLINE HCL 75 MG TABS Take one by mouth daily AMITRIPTYLINE HCL 85884586644 No Longer [facility] Active GABAPENTIN 100 MG CAPS take 2 tabs in the morning, 1 tab at lunch and 2 tabs at bedtime GABAPENTIN 90760540577 No Longer [facility] INVESTMENT UNDERWRITER Active JANUMET 50-500 MG TABS by mouth twice a day SITAGLIPTIN- METFORMIN HCL 34073925923 No Longer Active [facility] Active DIABETA 5 MG TABS by mouth twice a day GLYBURIDE 67967368064 No Longer [facility] INVESTMENT UNDERWRITER Active SHAUNA CONTOUR TEST STRP check blood sugars 4x/day GLUCOSE BLOOD 05213755263 No Longer [facility] INVESTMENT UNDERWRITER Active TRAZODONE HCL 50 MG TABS take at bedtime TRAZODONE HCL 47354028437 Active Rossi Mathews LPN Active CYMBALTA 30 MG CPEP Take one by mouth daily DULOXETINE HCL 21878723488 No Longer Active Rossi Mathews LPN Active CYMBALTA 60 MG CPEP Take one by mouth daily DULOXETINE HCL 71748273347 Active Rossi Mathews LPN Active COLACE 100 MG CAPS by mouth twice a day DOCUSATE SODIUM 08485025087 Active Rossi Mathews LPN Active MIRALAX POWD 17gm in h2o daily as directed POLYETHYLENE GLYCOL 3350 47851095972 Active Rossi Mathews LPN Active ACETAMINOPHEN 325 MG TABS 2 every 6 hrs prn ACETAMINOPHEN 90053088936 Active Rossi Reid PRICE Active [facility] MILK OF MAGNESIA 1200 MG/15ML SUSP 30 cc prn constipation MAGNESIUM HYDROXIDE 50506651786 Active Rossi Mathews LPN Active CINNAMON 500 MG TABS by mouth twice a day CINNAMON 23889328551 Active Rossi Mathews LPN Active ZINC TABS Take one by mouth daily ZINC TABS 77461980084 Active Rossi Mathews LPN Active CALCIUM + D 600-200 MG-UNIT TABS Take one by mouth daily CALCIUM CARBONATE-VITAMIN D 94145601197 Active Rossi Mathews LPN Active [facility] FOLIC ACID 400 MCG TABS Take one by mouth daily FOLIC ACID 97202224346 Active Rossi Mathews LPN Active REMERON 15 MG TABS take at bedtime MIRTAZAPINE 39475094749 Active Rossi Mathews LPN Active ADULT ASPIRIN EC LOW STRENGTH 81 MG TBEC Take one by mouth daily ASPIRIN 64606844679 Active Rossi Reid PRICE Active TRAZODONE HCL 100 MG TABS take 1-2 tabs at bedtime as needed TRAZODONE HCL 54308381794 Active Dale Pittman Active ALPRAZOLAM 0.25 MG TABS Take one by mouth 3 times daily, morning, afternoon and evening.] ALPRAZOLAM 91053633742 Active Dale Pittman Active LISINOPRIL 10 MG TABS Take one by mouth daily LISINOPRIL 00911609420 Active Dale Pittman Active CYMBALTA 30 MG CPEP Take one by mouth daily CYMBALTA 30 MG CPEP 027983 DULOXETINE HCL Inactive SHAUNA CONTOUR TEST STRP [...] tabs at bedtime GABAPENTIN 100 MG CAPS 495452 GABAPENTIN Inactive AMITRIPTYLINE HCL 75 MG TABS Take one by mouth daily AMITRIPTYLINE HCL 75 MG TABS 503259 AMITRIPTYLINE HCL Inactive FUROSEMIDE 40 MG TABS by mouth twice a day FUROSEMIDE 40 MG TABS 582410 FUROSEMIDE Inactive ZOCOR 20 MG TABS take at bedtime ZOCOR 20 MG TABS 466826 SIMVASTATIN Inactive METOPROLOL TARTRATE 25 MG TABS by mouth twice a day METOPROLOL TARTRATE 25 MG TABS 909238 METOPROLOL TARTRATE Inactive LEVEMIR 100 UNIT/ML SOLN 40u every hs LEVEMIR 100 UNIT/ML SOLN INSULIN DETEMIR Inactive AMBIEN 5 MG ORAL TABS 2 tabs every hs prn AMBIEN 5 MG ORAL TABS 745502 ZOLPIDEM TARTRATE Inactive TRESIBA FLEXTOUCH 100 UNIT/ML [...] mg/dL Encounters Code Encounter Date Provider Facility CPT-11945 Level 3 Est. Patient 10:01:00 CDT Rena Regalado [facility] CPT-21451 Level 4 Est. Patient 10:17:45 CDT [facility] Level 4 Est. Patient 17:01:22 CDT Smami Olivares APRN [facility] CPT-07971 Level 5 Est. Patient 16:18:07 CDT [facility] Level 3 Est[facility] Patient 17:20:16 CDT [facility] CPT-61678 Level 5 Est. Patient 09:44:15 CDT [facility] CPT-63036 Level 4 New Patient 07:56:40 ADMINISTRATIVE APPEALS TRIBUNAL MEMBER Kevin Gramajo MD [facility] Procedures Code Procedure Name Date Entry Date Standard Description CPT-36264 Bladder Scan 17:20:16 CDT CPT-A4351 Female Cath 07:56:40 ADMINISTRATIVE [employer] CPT-99363 Cystoscopy 07:56:40 ADMINISTRATIVE APPEALS [employer]NAL MEMBER
--- OUTSIDE RECORDS SUMMARY | 2018-10-10 10:24 | XMS REPORT | Clinical Summary ---
Author Author Admin, CARMELO Organization [facility] Address Unknown Phone Unavailable Allergies, Adverse [...] classified G E R D 530.81 Active Kvein Gramajo MD Esophageal reflux HYPERLIPIDEMIA 272.4 Active Kevin Gramjao MD Other and unspecified hyperlipidemia HYPERTENSION 401.9 [...] 788.21 Active Rena TEMPLETON Incomplete bladder emptying snf use of insulin treatment V58.67 Active Rena [...] SC SOPN Take 40 daily. INSULIN DEGLUDEC 46953019169 Active Maliheh Ziglari INSURANCE ADMINISTRATOR Active METFORMIN HCL 500 MG [id number] take 4 a day METFORMIN HCL 39644997110 Active Maliheh Ziglari INSURANCE ADMINISTRATOR Active NOVOLOG FLEXPEN 100 UNIT/ML SOPN Take 15units with each meal, add 2u/50 for blood sugars above 150, max dose 40u tid INSULIN ASPART 26710622750 Active Jasmeetiheh Ziglari INSURANCE ADMINISTRATOR Active PEN NEEDLES 31G X 5 MM MISC for a day for insulin injections INSULIN PEN NEEDLE 14907763920 Active Rena Ziglari INSURANCE ADMINISTRATOR Active TRESIBA FLEXTOUCH 100 UNIT/ML SC SOPN Take 60 units once a day at 6pm, add 2u/ day after 3 days until morning sugar is below 130 INSULIN DEGLUDEC 02853162957 No Longer Active Sammi Olivares APRN Active AMBIEN 5 MG ORAL TABS 2 tabs every hs prn ZOLPIDEM TARTRATE 07279757435 No Longer Active Sammi Olivares APRN Active LANCETS MISC 3 Dx E11.65 LANCETS 34675771473 Active Jasmeetgregever Ziglari INSURANCE ADMINISTRATOR Active SHAUNA CONTOUR NEXT TEST INVITR STRP check blood sugars 3x/day DX E11.65 05/17 GLUCOSE BLOOD 61722605658 Active Jasmeetgregever Sridharglari INSURANCE ADMINISTRATOR Active LEVEMIR 100 UNIT/ML SOLN 40u every hs INSULIN DETEMIR 55617702833 No Longer Active Jasmeetgregever Ziglari INSURANCE ADMINISTRATOR Active JANUVIA 100 MG TABS Take one by mouth daily SITAGLIPTIN PHOSPHATE 71691661747 Active Sammi [place] RETIREMENT VILLAGE MANAGER Active OXYCODONE HCL 20 MG ORAL TABS every 8 hrs as needed OXYCODONE HCL 09965188786 Active Jasmeetgregever Sridharglari INSURANCE ADMINISTRATOR Active METOPROLOL TARTRATE 25 MG TABS by mouth twice a day METOPROLOL TARTRATE 93453165793 No Longer Active Maliheh Ziglari INSURANCE ADMINISTRATOR Active ATORVASTATIN CALCIUM 80 MG ORAL TABS Take one by mouth daily ATORVASTATIN CALCIUM 14633090728 [facility] INSURANCE ADMINISTR[facility] Active ZOCOR 20 MG TABS take at bedtime SIMVASTATIN 68486428967 No Longer [facility] INSURANCE ADMINISTRATOR Active FUROSEMIDE 40 MG TABS by mouth twice a day FUROSEMIDE 40071370230 No Longer [facility] INSURANCE ADMINISTRATOR Active AMITRIPTYLINE HCL 75 MG TABS Take one by mouth daily AMITRIPTYLINE HCL 09925691221 No Longer [facility] Active GABAPENTIN 100 MG CAPS take 2 tabs in the morning, 1 tab at lunch and 2 tabs at bedtime GABAPENTIN 85023647241 No Longer [facility] INSURANCE ADMINISTRATOR Active JANUMET 50-500 MG TABS by mouth twice a day SITAGLIPTIN- METFORMIN HCL 47844244636 No Longer Active [facility] Active DIABETA 5 MG TABS by mouth twice a day GLYBURIDE 71865572832 No Longer [facility] INSURANCE ADMINISTRATOR Active SHAUNA CONTOUR TEST STRP check blood sugars 4x/day GLUCOSE BLOOD 76568593359 No Longer [facility] INSURANCE ADMINISTRATOR Active TRAZODONE HCL 50 MG TABS take at bedtime TRAZODONE HCL 80975767431 Active Rossi Mathews LPN Active CYMBALTA 30 MG CPEP Take one by mouth daily DULOXETINE HCL 76288459709 No Longer Active Rossi Mathews LPN Active CYMBALTA 60 MG CPEP Take one by mouth daily DULOXETINE HCL 36420697568 Active Rossi Mathews LPN Active COLACE 100 MG CAPS by mouth twice a day DOCUSATE SODIUM 09119895943 Active Rossi Mathews LPN Active MIRALAX POWD 17gm in h2o daily as directed POLYETHYLENE GLYCOL 3350 57234204532 Active Rossi Mathews LPN Active ACETAMINOPHEN 325 MG TABS 2 every 6 hrs prn ACETAMINOPHEN 02278976656 Active Rossi Reid PRICE Active [facility] MILK OF MAGNESIA 1200 MG/15ML SUSP 30 cc prn constipation MAGNESIUM HYDROXIDE 91502659006 Active Rossi Reid PRICE Active CINNAMON 500 MG TABS by mouth twice a day CINNAMON 51217978340 Active Rossi Mathews LPN Active ZINC TABS Take one by mouth daily ZINC TABS 77729941265 Active Rossi Mathews LPN Active CALCIUM + D 600-200 MG-UNIT TABS Take one by mouth daily CALCIUM CARBONATE-VITAMIN D 41168079859 Active Rossi Mathews LPN Active [facility] FOLIC ACID 400 MCG TABS Take one by mouth daily FOLIC ACID 85524008951 Active Rossi Mathews LPN Active REMERON 15 MG TABS take at bedtime MIRTAZAPINE 80205838077 Active Rossi Mathews LPN Active ADULT ASPIRIN EC LOW STRENGTH 81 MG TBEC Take one by mouth daily ASPIRIN 60302691343 Active Rossi Reid PRICE Active TRAZODONE HCL 100 MG TABS take 1-2 tabs at bedtime as needed TRAZODONE HCL 46623814658 Active Dale Pittman Active ALPRAZOLAM 0.25 MG TABS Take one by mouth 3 times daily, morning, afternoon and evening.] ALPRAZOLAM 67557536711 Active Dale Pittman Active LISINOPRIL 10 MG TABS Take one by mouth daily LISINOPRIL 43325437161 Active Dale Pittman Active CYMBALTA 30 MG CPEP Take one by mouth daily CYMBALTA 30 MG CPEP 985183 DULOXETINE HCL Inactive SHAUNA CONTOUR TEST STRP check blood sugars 4x/day SHAUNA CONTOUR TEST STRP GLUCOSE BLOOD Inactive DIABETA 5 MG TABS by mouth twice a day DIABETA 5 MG TABS 256810 GLYBURIDE Inactive JANUMET 50-500 MG TABS by mouth twice a day JANUMET 50-500 MG TABS SITAGLIPTIN-METFORMIN HCL Inactive GABAPENTIN 100 MG CAPS take 2 tabs in the morning, 1 tab at lunch and 2 tabs at bedtime GABAPENTIN 100 MG CAPS 180596 GABAPENTIN Inactive AMITRIPTYLINE HCL 75 MG TABS Take one by mouth daily AMITRIPTYLINE HCL 75 MG TABS 866915 AMITRIPTYLINE HCL Inactive FUROSEMIDE 40 MG TABS by mouth twice a day FUROSEMIDE 40 MG TABS 189741 FUROSEMIDE Inactive ZOCOR 20 MG TABS take at bedtime ZOCOR 20 MG TABS 029390 SIMVASTATIN Inactive METOPROLOL TARTRATE 25 MG TABS by mouth twice a day METOPROLOL TARTRATE 25 MG TABS 061615 METOPROLOL TARTRATE Inactive LEVEMIR 100 UNIT/ML SOLN 40u every hs LEVEMIR 100 UNIT/ML SOLN INSULIN DETEMIR Inactive AMBIEN 5 MG ORAL TABS 2 tabs every hs prn AMBIEN 5 MG ORAL TABS 716281 ZOLPIDEM TARTRATE Inactive TRESIBA FLEXTOUCH 100 UNIT/ML [...] mg/dL Encounters Code Encounter Date Provider Facility CPT-22434 Level 3 Est. Patient 10:01:00 CDT Rena Regalado [facility] CPT-96495 Level 4 Est. Patient 10:17:45 CDT Rena Fabricio [facility] CPT-07777 Level 4 Est. Patient 17:01:22 CDT Sammi Olivares APRN [facility] CPT-35388 Level 5 Est. Patient 16:18:07 [facility] Level 3 Est. Patient 17:20:16 CDT [facility] CPT-41534 Level 5 Est. Patient 09:44:15 CDT [facility] CPT-99140 Level 4 New Patient 07:56:40 ROUTE SALESPERSON Kevin Gramajo MD [facility] Procedures Code Procedure Name Date Entry Date Standard Description CPT-82325 Bladder Scan 17:20:16 CDT CPT-A4351 Female Cath 07:56:40 ROUTE SALESPERSON CPT-04903 Cystoscopy 07:56:40 ROUTE SALESPERSON
--- OUTSIDE RECORDS SUMMARY | 2018-10-10 10:24 | XMS REPORT | Clinical Summary ---
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 Rena GIBSONP Diabetes mellitus with neurological manifestations, type II or unspecified type, not stated as uncontrolled Medication List Medication Instructions Start Date Stop Date Generic Name NDC Status Provider [facility] Dx E11.65 LANCETS 42682912120 Active Maliheh Ziglari SOCIAL MEDIA EXECUTIVE Active SHAUNA CONTOUR NEXT TEST INVITR STRP check blood sugars 3x/day DX E11.65 05/17 GLUCOSE BLOOD 45047642939 Active Jasmeetiheh Ziglari SOCIAL MEDIA EXECUTIVE Active LEVEMIR 100 UNIT/ML SOLN 40u every hs INSULIN DETEMIR 84144534243 No Longer Active Jasmeetiheh Ziglari SOCIAL MEDIA EXECUTIVE Active TRESIBA FLEXTOUCH 100 UNIT/ML SC SOPN Take 60 units once a day at 6pm, add 2u/ day after 3 days until morning sugar is below 130 INSULIN DEGLUDEC 15675233115 Active Rena Ziglari SOCIAL MEDIA EXECUTIVE Active JANUVIA 100 MG TABS Take one by mouth daily SITAGLIPTIN PHOSPHATE 21075064784 Active Rena Ziglari SOCIAL MEDIA EXECUTIVE Active METFORMIN HCL 500 MG [id number] one a day for 5 days then 2 a day, then add one every 5 days to 4 a day METFORMIN HCL 99984896912 Active Rena Ziglari SOCIAL MEDIA EXECUTIVE Active AMBIEN 5 MG ORAL TABS 2 tabs every hs prn ZOLPIDEM TARTRATE 09144638709 Active Rena Ziglari SOCIAL MEDIA EXECUTIVE Active OXYCODONE HCL 20 MG ORAL TABS every 8 hrs as needed OXYCODONE HCL 50689717482 Active Rena Ziglari SOCIAL MEDIA EXECUTIVE Active METOPROLOL TARTRATE 25 MG TABS by mouth twice a day METOPROLOL TARTRATE 11028448447 No Longer [facility] SOCIAL MEDIA EXECUTIVE Active ATORVASTATIN CALCIUM 80 MG ORAL TABS Take one by mouth daily ATORVASTATIN CALCIUM 74030035373 Active Jasmeetihever Ziglari SOCIAL MEDIA EXECUTIVE Active ZOCOR 20 MG TABS take at bedtime SIMVASTATIN 73990026616 No Longer Active Maliheh Ziglari SOCIAL MEDIA EXECUTIVE Active FUROSEMIDE 40 MG TABS by mouth twice a day FUROSEMIDE 12762683024 No Longer Active Maliheh Ziglari SOCIAL MEDIA EXECUTIVE Active AMITRIPTYLINE HCL 75 MG TABS Take one by mouth daily AMITRIPTYLINE HCL 56112301550 No Longer Active [facility] Ziglari SOCIAL MEDIA EXECUTIVE Active GABAPENTIN 100 MG CAPS take 2 tabs in the morning, 1 tab at lunch and 2 tabs at bedtime GABAPENTIN 90079627978 No Longer Active [facility] Ziglari SOCIAL MEDIA EXECUTIVE Active JANUMET 50-500 MG TABS by mouth twice a day SITAGLIPTIN- METFORMIN HCL 22202665598 No Longer Active [facility] Ziglari SOCIAL MEDIA EXECUTIVE Active DIABETA 5 MG TABS by mouth twice a day GLYBURIDE 19967057303 No Longer Active [facility] Ziglari SOCIAL MEDIA EXECUTIVE Active SHAUNA CONTOUR TEST STRP check blood sugars 4x/day GLUCOSE BLOOD 98890090590 No Longer Active [facility] Ziglari SOCIAL MEDIA EXECUTIVE Active TRAZODONE HCL 50 MG TABS take at bedtime TRAZODONE HCL 07285967807 Active Rossi Mathews LPN Active CYMBALTA 30 MG CPEP Take one by mouth daily DULOXETINE HCL 31894433604 No Longer Active Rossi Mathews LPN Active CYMBALTA 60 MG CPEP Take one by mouth daily DULOXETINE HCL 29926824086 Active Rossi Mathews LPN Active COLACE 100 MG CAPS by mouth twice a day DOCUSATE SODIUM 30057100580 Active Rossi Mathews LPN Active MIRALAX POWD 17gm in h2o daily as directed POLYETHYLENE GLYCOL 3350 38781126369 Active Rossi Mathews LPN Active ACETAMINOPHEN 325 MG TABS 2 every 6 hrs prn ACETAMINOPHEN 97335280101 Active Rossi Mathews LPN Active [facility] MILK OF MAGNESIA 1200 MG/15ML SUSP 30 cc prn constipation MAGNESIUM HYDROXIDE 18269257123 Active Rossi Mathews LPN Active CINNAMON 500 MG TABS by mouth twice a day CINNAMON 94266400880 Active Rossi Mathews LPN Active ZINC TABS Take one by mouth daily ZINC TABS 91204608195 Active Rossi Mathews LPN Active CALCIUM + D 600-200 MG-UNIT TABS Take one by mouth daily CALCIUM CARBONATE-VITAMIN D 73495011997 Active Rossi Reid PRICE Active [facility] FOLIC ACID 400 MCG TABS Take one by mouth daily FOLIC ACID 54460054499 Active Rossi Reid PRICE Active REMERON 15 MG TABS take at bedtime MIRTAZAPINE 33749035547 Active Rossi Reid PRICE Active ADULT ASPIRIN EC LOW STRENGTH 81 MG TBEC Take one by mouth daily ASPIRIN 90073336272 Active Rossi Reid PRICE Active TRAZODONE HCL 100 MG TABS take 1-2 tabs at bedtime as needed TRAZODONE HCL 93035333242 Active Dale Brjessicamejasmin Active NOVOLOG 100 UNIT/ML SOLN give 14 units subq three times daily INSULIN ASPART 96699594472 Active Dale Brinkmejasmin Active ALPRAZOLAM 0.25 MG TABS Take one by mouth 3 times daily, morning, afternoon and evening.] ALPRAZOLAM 43942658781 Active Dale Brinkmeyer Active LISINOPRIL 10 MG TABS Take one by mouth daily LISINOPRIL 47778956573 Active Dale Brinkmeyer Active CYMBALTA 30 MG CPEP Take one by mouth daily CYMBALTA 30 MG CPEP 202708 DULOXETINE HCL Inactive SHAUNA CONTOUR TEST STRP [...] tabs at bedtime GABAPENTIN 100 MG CAPS 420687 GABAPENTIN Inactive AMITRIPTYLINE HCL 75 MG TABS Take one by mouth daily AMITRIPTYLINE HCL 75 MG TABS 331196 AMITRIPTYLINE HCL Inactive FUROSEMIDE 40 MG TABS by mouth twice a day FUROSEMIDE 40 MG TABS 455537 FUROSEMIDE Inactive ZOCOR 20 MG TABS take at bedtime ZOCOR 20 MG TABS 082799 SIMVASTATIN Inactive METOPROLOL TARTRATE 25 MG TABS by mouth twice a day METOPROLOL TARTRATE 25 MG TABS 599547 METOPROLOL TARTRATE Inactive LEVEMIR 100 UNIT/ML SOLN 40u every hs LEVEMIR 100 UNIT/ML SOLN INSULIN DETEMIR Inactive Vital Signs Date Name Value Unit [...] - Basic LDL target level 100 mg/dL Office Visit: Diabetes Visit - Chemistry home glucose monitor utilized Yes cholesterol, target level 200 mg/dL triglyceride, target level 200 mg/dL HDL cholesterol, serum, target level 35 mg/dL Encounters Code Encounter Date Provider Facility CPT-30980 Level 5 Est. Patient 16:18:07 CDT [facility] CPT-64723 Level 3 Est. Patient 17:20:16 CDT [facility] CPT-05865 Level 5 Est. Patient 09:44:15 CDT [facility] CPT-47857 Level 4 New Patient 07:56:40 VINITA Gramajo MD [facility] Procedures Code Procedure Name Date Entry Date Standard Description CPT-57694 Bladder Scan 17:20:16 CDT CPT-A4351 Female Cath 07:56:40 BRUSH LOADER AND HANDLE ATTACHER CPT-85733 Cystoscopy 07:56:40 BRUSH LOADER AND HANDLE ATTACHER
--- OUTSIDE RECORDS SUMMARY | 2018-10-10 10:24 | XMS REPORT | Clinical Summary ---
Author Author Admin, CARMELO Grajeda [facility] Address Unknown Phone Unavailable Allergies, Adverse Reactions, Alerts Allergy Name Reaction Description Start Date Severity Status Provider No Known Allergies Maliheh Ziglari BRAZER PRODUCTION LINE Conditions or Problems Problem Name Problem Code [...] DIABETES MELLITUS, TYPE II, UNCONTROLLED 250.02 Active Maliheh Sridharglari BRAZER PRODUCTION LINE Diabetes mellitus without mention of complication, type II or unspecified type, uncontrolled NEUROGENIC BLADDER 596.54 Active Maliheh Ziglari BRAZER PRODUCTION LINE Neurogenic bladder NOS INCOMPLETE BLADDER EMPTYING 788.21 Active Maliheh Ziglari BRAZER PRODUCTION LINE Incomplete bladder emptying Medication List Medication Instructions Start Date Stop Date Generic Name NDC Status Provider Patient Instruction SHAUNA CONTOUR TEST STRP check blood sugars 4x/day GLUCOSE BLOOD 40968658368 Active Maliheh Ziglari BRAZER PRODUCTION LINE Active TRAZODONE HCL 50 MG TABS take at bedtime TRAZODONE HCL 84573259069 Active Rossi Mathews LPN Active CYMBALTA 30 MG CPEP Take one by mouth daily DULOXETINE HCL 36486275920 No Longer Active Rossi Mathews CORRECTIONAL CASE MANAGER Active CYMBALTA 60 MG CPEP Take one by mouth daily DULOXETINE HCL 84902502111 Active Rossi Mathews CORRECTIONAL CASE MANAGER Active COLACE 100 MG CAPS by mouth twice a day DOCUSATE SODIUM 71852320451 Active Rossi Mathews CORRECTIONAL CASE MANAGER Active MIRALAX POWD 17gm in h2o daily as directed POLYETHYLENE GLYCOL 3350 43878434524 Active Rossi Mathews CORRECTIONAL CASE MANAGER Active ACETAMINOPHEN 325 MG TABS 2 every 6 hrs prn ACETAMINOPHEN 36816409072 Active Rossi Reid GRIFFITHN Active [facility] MILK OF MAGNESIA 1200 MG/15ML SUSP 30 cc prn constipation MAGNESIUM HYDROXIDE 10224333033 Active Rossi Mathews CORRECTIONAL CASE MANAGER Active CINNAMON 500 MG TABS by mouth twice a day CINNAMON 00090353499 Active Rossi Reid GRIFFITHN Active LEVEMIR 100 UNIT/ML SOLN 40u every hs INSULIN DETEMIR 55120745869 Active Rossi Reid GRIFFITHN Active ZOCOR 20 MG TABS take at bedtime SIMVASTATIN 70630623359 Active Rsosi Reid GRIFFITHN Active ZINC TABS Take one by mouth daily ZINC TABS 72477576328 Active Rossi Reid GRIFFITHN Active CALCIUM + D 600-200 MG-UNIT TABS Take one by mouth daily CALCIUM CARBONATE-VITAMIN D 90604367992 Active Rossi Reid GRIFFITHN Active [facility] FOLIC ACID 400 MCG TABS Take one by mouth daily FOLIC ACID 19951581214 Active Rossi Reid GRIFFITHN Active REMERON 15 MG TABS take at bedtime MIRTAZAPINE 26318089359 Active Rossi Reid GRIFFITHN Active ADULT ASPIRIN EC LOW STRENGTH 81 MG TBEC Take one by mouth daily ASPIRIN 97765419982 Active Rossi Reid GRIFFITHN Active DIABETA 5 MG TABS by mouth twice a day GLYBURIDE 45721657843 Active Dale Jenyer Active TRAZODONE HCL 100 MG TABS take 1-2 tabs at bedtime as needed TRAZODONE HCL 65756351497 Active Dale Brinkmeyer Active JANUMET 50-500 MG TABS by mouth twice a day SITAGLIPTIN-METFORMIN HCL 98703767675 Active Dale Brinkmeyer Active GABAPENTIN 100 MG CAPS take 2 tabs in the morning, 1 tab at lunch and 2 tabs at bedtime GABAPENTIN 81847973597 Active Dale Brinkmeyer Active AMITRIPTYLINE HCL 75 MG TABS Take one by mouth daily AMITRIPTYLINE HCL 31200115697 Active Dale Brinkmeyer Active NOVOLOG 100 UNIT/ML SOLN give 14 units subq three times daily INSULIN ASPART 98569332463 Active Dale Brinkmeyer Active FUROSEMIDE 40 MG TABS by mouth twice a day FUROSEMIDE 85849138803 Active Dale Brinkmeyer Active METOPROLOL TARTRATE 25 MG TABS by mouth twice a day METOPROLOL TARTRATE 56280199084 Active Dale Brinkmeyer Active ALPRAZOLAM 0.25 MG TABS Take one by mouth 3 times daily, morning, afternoon and evening.] ALPRAZOLAM 70790909050 Active Dale Brinkmeyer Active LISINOPRIL 10 MG TABS Take one by mouth daily LISINOPRIL 55131569112 Active Dale Brinkmeyer Active CYMBALTA 30 MG CPEP Take one by mouth daily CYMBALTA 30 MG CPEP 523698 DULOXETINE HCL Inactive Encounters Code Encounter Date Provider Facility CPT-07220 Level 3 Est. Patient 17:20:16 CDT Rena Regalado [facility] CPT-11651 Level 5 Est. Patient 09:44:15 CDT Rena Regalado [facility] CPT-11641 Level 4 New Patient 07:56:40 REAL ESTATE ADMINISTRATOR Kevin Gramajo MD [facility] Procedures Code Procedure Name Date Entry Date Standard Description CPT-19908 Bladder Scan 17:20:16 CDT CPT-A4351 Female Cath 07:56:40 REAL ESTATE ADMINISTRATOR CPT-76238 Cystoscopy 07:56:40 REAL ESTATE ADMINISTRATOR
--- OUTSIDE RECORDS SUMMARY | 2018-10-10 10:25 | XMS REPORT | Clinical Summary ---
Author Author Admin, CARMELO Organization [facility] Address Unknown Phone Unavailable Allergies, Adverse [...] 788.21 Active Rena TEMPLETON Incomplete bladder emptying detention use of insulin treatment V58.67 Active Rena [...] for blood sugar above 150 INSULIN ASPART 44446267452 Active Sammi Olivares HELIUM ARC WELDER Active TRESIBA FLEXTOUCH 100 UNIT/ML SC SOPN Take 60 units once a day at 6pm, add 2u/ day after 3 days until morning sugar is below 130 INSULIN DEGLUDEC 09561461870 No Longer Active Sammi Elise HELIUM ARC WELDER Active AMBIEN 5 MG ORAL TABS 2 tabs every hs prn ZOLPIDEM TARTRATE 20434523269 No Longer Active Sammi Peach HELIUM ARC WELDER Active LANCETS MISC 3 Dx E11.65 LANCETS 82906527041 Active Rena Wallerglari SPARK PLUG ASSEMBLER Active SHAUNA CONTOUR NEXT TEST INVITR STRP check blood sugars 3x/day DX E11.65 05/17 GLUCOSE BLOOD 84169266985 Active Rena Wallerglari SPARK PLUG ASSEMBLER Active LEVEMIR 100 UNIT/ML SOLN 40u every hs INSULIN DETEMIR 61003848552 No Longer Active Crunchyroll Ziglari SPARK PLUG ASSEMBLER Active JANUVIA 100 MG TABS Take one by mouth daily SITAGLIPTIN PHOSPHATE 17638401037 Active Sammi Olivares HELIUM ARC WELDER Active METFORMIN HCL 500 MG [id number] one a day for 5 days then 2 a day, then add one every 5 days to 4 a day METFORMIN HCL 08956457346 Active Maliheh Ziglari SPARK PLUG ASSEMBLER Active OXYCODONE HCL 20 MG ORAL TABS every 8 hrs as needed OXYCODONE HCL 10266618892 Active Rena Ziglari SPARK PLUG ASSEMBLER Active METOPROLOL TARTRATE 25 MG TABS by mouth twice a day METOPROLOL TARTRATE 61168970081 No Longer Active Maliheh Ziglari SPARK PLUG ASSEMBLER Active ATORVASTATIN CALCIUM 80 MG ORAL TABS Take one by mouth daily ATORVASTATIN CALCIUM 61977397132 Active MalXplorneteh Ziglari SPARK PLUG ASSEMBLER Active ZOCOR 20 MG TABS take at bedtime SIMVASTATIN 67608228335 No Longer Active Maliheh Ziglari SPARK PLUG ASSEMBLER Active FUROSEMIDE 40 MG TABS by mouth twice a day FUROSEMIDE 54251648819 No Longer [facility] SPARK PLUG ASSEMBLER Active AMITRIPTYLINE HCL 75 MG TABS Take one by mouth daily AMITRIPTYLINE HCL 67564244797 No Longer [facility] SPARK PLUG ASSEMBLER Active GABAPENTIN 100 MG CAPS take 2 tabs in the morning, 1 tab at lunch and 2 tabs at bedtime GABAPENTIN 34982001586 No Longer [facility] Active JANUMET 50-500 MG TABS by mouth twice a day SITAGLIPTIN- METFORMIN HCL 77520801286 No Longer Active [facility] Active DIABETA 5 MG TABS by mouth twice a day GLYBURIDE 18347086503 No Longer [facility] SPARK PLUG ASSEMBLER Active SHAUNA CONTOUR TEST STRP check blood sugars 4x/day GLUCOSE BLOOD 41268943652 No Longer [facility] Active TRAZODONE HCL 50 MG TABS take at bedtime TRAZODONE HCL 19146140051 Active Rossi Mathews LPN Active CYMBALTA 30 MG CPEP Take one by mouth daily DULOXETINE HCL 96415829792 No Longer Active Rossi Mathews LPN Active CYMBALTA 60 MG CPEP Take one by mouth daily DULOXETINE HCL 89973947128 Active Rossi Mathews LPN Active COLACE 100 MG CAPS by mouth twice a day DOCUSATE SODIUM 53213263220 Active Rossi Mathews LPN Active MIRALAX POWD 17gm in h2o daily as directed POLYETHYLENE GLYCOL 3350 27208047173 Active Rossi Mathews LPN Active ACETAMINOPHEN 325 MG TABS 2 every 6 hrs prn ACETAMINOPHEN 52257084867 Active Rossi Mathews LPN Active [facility] MILK OF MAGNESIA 1200 MG/15ML SUSP 30 cc prn constipation MAGNESIUM HYDROXIDE 77393520254 Active Rossi Mathews LPN Active CINNAMON 500 MG TABS by mouth twice a day CINNAMON 68050442267 Active Rossi Reid PRICE Active ZINC TABS Take one by mouth daily ZINC TABS 51998368495 Active Rossi Reid PRICE Active CALCIUM + D 600-200 MG-UNIT TABS Take one by mouth daily CALCIUM CARBONATE-VITAMIN D 93963722152 Active Rossi Reid PRICE Active [facility] FOLIC ACID 400 MCG TABS Take one by mouth daily FOLIC ACID 15905622964 Active Rossi Reid PRICE Active REMERON 15 MG TABS take at bedtime MIRTAZAPINE 13080652494 Active Rossi Reid PRICE Active ADULT ASPIRIN EC LOW STRENGTH 81 MG TBEC Take one by mouth daily ASPIRIN 47512944323 Active Rossi Reid PRICE Active TRAZODONE HCL 100 MG TABS take 1-2 tabs at bedtime as needed TRAZODONE HCL 61835491222 Active Dale Pittman Active ALPRAZOLAM 0.25 MG TABS Take one by mouth 3 times daily, morning, afternoon and evening.] ALPRAZOLAM 43668894207 Active Dale Pittman Active LISINOPRIL 10 MG TABS Take one by mouth daily LISINOPRIL 31644866820 Active Dale Pittman Active CYMBALTA 30 MG CPEP Take one by mouth daily CYMBALTA 30 MG CPEP 326909 DULOXETINE HCL Inactive SHAUNA CONTOUR TEST STRP [...] tabs at bedtime GABAPENTIN 100 MG CAPS 659087 GABAPENTIN Inactive AMITRIPTYLINE HCL 75 MG TABS Take one by mouth daily AMITRIPTYLINE HCL 75 MG TABS 559105 AMITRIPTYLINE HCL Inactive FUROSEMIDE 40 MG TABS by mouth twice a day FUROSEMIDE 40 MG TABS 374181 FUROSEMIDE Inactive ZOCOR 20 MG TABS take at bedtime ZOCOR 20 MG TABS 096578 SIMVASTATIN Inactive METOPROLOL TARTRATE 25 MG TABS by mouth twice a day METOPROLOL TARTRATE 25 MG TABS 282964 METOPROLOL TARTRATE Inactive LEVEMIR 100 UNIT/ML SOLN 40u every hs LEVEMIR 100 UNIT/ML SOLN INSULIN DETEMIR Inactive AMBIEN 5 MG ORAL TABS 2 tabs every hs prn AMBIEN 5 MG ORAL TABS 809520 ZOLPIDEM TARTRATE Inactive TRESIBA FLEXTOUCH 100 UNIT/ML [...] mg/dL Encounters Code Encounter Date Provider Facility CPT-09619 Level 4 Est. Patient 17:01:22 CDT Sammi Olivares [facility] CPT-70978 Level 5 Est. Patient 16:18:07 CDT [facility] CPT-98393 Level 3 Est. Patient 17:20:16 CDT [facility] CPT-58968 Level 5 Est. Patient 09:44:15 CDT [facility] CPT-14969 Level 4 New Patient 07:56:40 JOB PLACEMENT COUNSELOR Kevin Gramajo MD [facility] Procedures Code Procedure Name Date Entry Date Standard Description CPT-76423 Bladder Scan 17:20:16 CDT CPT-A4351 Female Cath 07:56:40 JOB PLACEMENT COUNSELOR CPT-42327 Cystoscopy 07:56:40 JOB PLACEMENT COUNSELOR
--- OUTSIDE RECORDS SUMMARY | 2018-10-10 10:25 | XMS REPORT | Clinical Summary ---
Author Author Admin, CARMELO Organization [facility] Address Unknown Phone Unavailable Allergies, [...] Provider Patient Instruction METFORMIN HCL 500 MG [id number] take 4 a day METFORMIN HCL 27491318482 Active Maliheh Ziglari MUFF WINDER Active NOVOLOG FLEXPEN 100 UNIT/ML SOPN Take 15units with each meal, add 2u/50 for blood sugars above 150, max dose 40u tid INSULIN ASPART 65689544684 Active Jasmeetiheh Ziglari MUFF WINDER Active PEN NEEDLES 31G X 5 MM MISC for a day for insulin injections INSULIN PEN NEEDLE 46172691016 Active Maliheh Ziglari MUFF WINDER Active TRESIBA FLEXTOUCH 200 UNIT/ML SC SOPN Take 45 daily. INSULIN DEGLUDEC 22493612018 Active Maliheh Ziglari MUFF WINDER Active TRESIBA FLEXTOUCH 100 UNIT/ML SC SOPN Take 60 units once a day at 6pm, add 2u/ day after 3 days until morning sugar is below 130 INSULIN DEGLUDEC 94899629851 No Longer Active Sammi Olivares APRN Active AMBIEN 5 MG ORAL TABS 2 tabs every hs prn ZOLPIDEM TARTRATE 45958629189 No Longer Active Sammi Olivares APRN Active LANCETS MISC 3 Dx E11.65 LANCETS 32860911616 Active Maliheh Ziglari MUFF WINDER Active SHAUNA CONTOUR NEXT TEST INVITR STRP check blood sugars 3x/day DX E11.65 05/17 GLUCOSE BLOOD 79388875633 Active Rena Ziglari MUFF WINDER Active LEVEMIR 100 UNIT/ML SOLN 40u every hs INSULIN DETEMIR 50715694996 No Longer Active Maliheh Ziglari MUFF WINDER Active JANUVIA 100 MG TABS Take one by mouth daily SITAGLIPTIN PHOSPHATE 28820240805 Active Sammi Elbert [facility] Active OXYCODONE HCL 20 MG ORAL TABS every 8 hrs as needed OXYCODONE HCL 65130784755 Active Malgrey Ziglari MUFF WINDER Active METOPROLOL TARTRATE 25 MG TABS by mouth twice a day METOPROLOL TARTRATE 06371398372 No Longer Active Maliheh Ziglari MUFF WINDER Active ATORVASTATIN CALCIUM 80 MG ORAL TABS Take one by mouth daily ATORVASTATIN CALCIUM 30475914113 [facility] WINDER Active ZOCOR 20 MG TABS take at bedtime SIMVASTATIN 11729399595 No Longer [facility] MUFF WINDER Active FUROSEMIDE 40 MG TABS by mouth twice a day FUROSEMIDE 32536283668 No Longer [facility] MUFF WINDER Active AMITRIPTYLINE HCL 75 MG TABS Take one by mouth daily AMITRIPTYLINE HCL 59860800823 No Longer [facility] Active GABAPENTIN 100 MG CAPS take 2 tabs in the morning, 1 tab at lunch and 2 tabs at bedtime GABAPENTIN 59575136294 No Longer [facility] MUFF WINDER Active JANUMET 50-500 MG TABS by mouth twice a day SITAGLIPTIN- METFORMIN HCL 49588123969 No Longer Active [facility] Active DIABETA 5 MG TABS by mouth twice a day GLYBURIDE 20520311858 No Longer [facility] MUFF WINDER Active SHAUNA CONTOUR TEST STRP check blood sugars 4x/day GLUCOSE BLOOD 56884348099 No Longer [facility] MUFF WINDER Active TRAZODONE HCL 50 MG TABS take at bedtime TRAZODONE HCL 22001160121 Active Rossi Mathews LPN Active CYMBALTA 30 MG CPEP Take one by mouth daily DULOXETINE HCL 33286754019 No Longer Active Rossi Mathews LPN Active CYMBALTA 60 MG CPEP Take one by mouth daily DULOXETINE HCL 23631651069 Active Rossi Mathews LPN Active COLACE 100 MG CAPS by mouth twice a day DOCUSATE SODIUM 20143890683 Active Rossi Mathews LPN Active MIRALAX POWD 17gm in h2o daily as directed POLYETHYLENE GLYCOL 3350 31268357618 Active Rossi Mathews LPN Active ACETAMINOPHEN 325 MG TABS 2 every 6 hrs prn ACETAMINOPHEN 90500244174 Active Rossi Reid PRICE Active [facility] MILK OF MAGNESIA 1200 MG/15ML SUSP 30 cc prn constipation MAGNESIUM HYDROXIDE 47901835045 Active Rossi Mathews LPN Active CINNAMON 500 MG TABS by mouth twice a day CINNAMON 24517193793 Active Rossi Mathews LPN Active ZINC TABS Take one by mouth daily ZINC TABS 24460852819 Active Rossi Mathews LPN Active CALCIUM + D 600-200 MG-UNIT TABS Take one by mouth daily CALCIUM CARBONATE-VITAMIN D 16312440841 Active Rossi Mathews LPN Active [facility] FOLIC ACID 400 MCG TABS Take one by mouth daily FOLIC ACID 14036462414 Active Rossi Mathews LPN Active REMERON 15 MG TABS take at bedtime MIRTAZAPINE 65795747664 Active Rossi Mathews LPN Active ADULT ASPIRIN EC LOW STRENGTH 81 MG TBEC Take one by mouth daily ASPIRIN 30091803935 Active Rossi Reid PRICE Active TRAZODONE HCL 100 MG TABS take 1-2 tabs at bedtime as needed TRAZODONE HCL 33191987210 Active Dale Pittman Active ALPRAZOLAM 0.25 MG TABS Take one by mouth 3 times daily, morning, afternoon and evening.] ALPRAZOLAM 73611284968 Active Dale Pittman Active LISINOPRIL 10 MG TABS Take one by mouth daily LISINOPRIL 69550823067 Active Dale Pittman Active CYMBALTA 30 MG CPEP Take one by mouth daily CYMBALTA 30 MG CPEP 461163 DULOXETINE HCL Inactive SHAUNA CONTOUR TEST STRP [...] tabs at bedtime GABAPENTIN 100 MG CAPS 392070 GABAPENTIN Inactive AMITRIPTYLINE HCL 75 MG TABS Take one by mouth daily AMITRIPTYLINE HCL 75 MG TABS 091887 AMITRIPTYLINE HCL Inactive FUROSEMIDE 40 MG TABS by mouth twice a day FUROSEMIDE 40 MG TABS 226190 FUROSEMIDE Inactive ZOCOR 20 MG TABS take at bedtime ZOCOR 20 MG TABS 101572 SIMVASTATIN Inactive METOPROLOL TARTRATE 25 MG TABS by mouth twice a day METOPROLOL TARTRATE 25 MG TABS 768059 METOPROLOL TARTRATE Inactive LEVEMIR 100 UNIT/ML SOLN 40u every hs LEVEMIR 100 UNIT/ML SOLN INSULIN DETEMIR Inactive AMBIEN 5 MG ORAL TABS 2 tabs every hs prn AMBIEN 5 MG ORAL TABS 050996 ZOLPIDEM TARTRATE Inactive TRESIBA FLEXTOUCH 100 UNIT/ML [...] mg/dL Encounters Code Encounter Date Provider Facility CPT-10466 Level 4 Est. Patient 10:17:45 CDT [facility] CPT-98812 Level 4 Est. Patient 17:01:22 CDT Sammi Olivares [facility] CPT-65540 Level 5 Est. Patient 16:18:07 CDT [facility] CPT-01829 Level 3 Est. Patient 17:20:16 CDT [facility] CPT-88439 Level 5 Est. Patient 09:44:15 CDT [facility] CPT-39727 Level 4 New Patient 07:56:40 PEST CONTROL CHEMICAL TECHNICIAN Kevin Gramajo MD [facility] Procedures Code Procedure Name Date Entry Date Standard Description CPT-62990 Bladder Scan 17:20:16 CDT CPT-A4351 Female Cath 07:56:40 PEST CONTROL CHEMICAL TECHNICIAN CPT-14863 Cystoscopy 07:56:40 PEST CONTROL CHEMICAL TECHNICIAN
--- OUTSIDE RECORDS SUMMARY | 2018-10-10 10:26 | XMS REPORT | Clinical Summary ---
Author Author Admin, CARMELO Organization [facility] Address Unknown Phone Unavailable Allergies, Adverse [...] 788.21 Active Rena TEMPLETON Incomplete bladder emptying [facility] use of insulin treatment V58.67 Active Rena [...] SC SOPN Take 40 daily. INSULIN DEGLUDEC 75392175184 Active Maliheh Ziglari SODA ROOM OPERATOR Active METFORMIN HCL 500 MG [id number] take 4 a day METFORMIN HCL 29714485674 Active Maliheh Ziglari SODA ROOM OPERATOR Active NOVOLOG FLEXPEN 100 UNIT/ML SOPN Take 15units with each meal, add 2u/50 for blood sugars above 150, max dose 40u tid INSULIN ASPART 40034547187 Active Jasmeetiheh Ziglari SODA ROOM OPERATOR Active PEN NEEDLES 31G X 5 MM MISC for a day for insulin injections INSULIN PEN NEEDLE 74820037973 Active Rena Ziglari SODA ROOM OPERATOR Active TRESIBA FLEXTOUCH 100 UNIT/ML SC SOPN Take 60 units once a day at 6pm, add 2u/ day after 3 days until morning sugar is below 130 INSULIN DEGLUDEC 15959918820 No Longer Active Sammi Olivares APRN Active AMBIEN 5 MG ORAL TABS 2 tabs every hs prn ZOLPIDEM TARTRATE 60001956466 No Longer Active Sammi Olivares APRN Active LANCETS MISC 3 Dx E11.65 LANCETS 77295273984 Active Jasmeetgregever Ziglari SODA ROOM OPERATOR Active SHAUNA CONTOUR NEXT TEST INVITR STRP check blood sugars 3x/day DX E11.65 05/17 GLUCOSE BLOOD 56728955510 Active Jasmeetgregever Sridharglari SODA ROOM OPERATOR Active LEVEMIR 100 UNIT/ML SOLN 40u every hs INSULIN DETEMIR 73531176473 No Longer Active Jasmeetgregever Ziglari SODA ROOM OPERATOR Active JANUVIA 100 MG TABS Take one by mouth daily SITAGLIPTIN PHOSPHATE 97202180537 Active Sammi [place] DOGGER Active OXYCODONE HCL 20 MG ORAL TABS every 8 hrs as needed OXYCODONE HCL 71283675652 Active Jasmeetgregever Sridharglari SODA ROOM OPERATOR Active METOPROLOL TARTRATE 25 MG TABS by mouth twice a day METOPROLOL TARTRATE 11931399280 No Longer Active Maliheh Ziglari SODA ROOM OPERATOR Active ATORVASTATIN CALCIUM 80 MG ORAL TABS Take one by mouth daily ATORVASTATIN CALCIUM 90886408472 [facility] ROOM OPER[facility] Active ZOCOR 20 MG TABS take at bedtime SIMVASTATIN 73237431987 No Longer [facility] SODA ROOM OPERATOR Active FUROSEMIDE 40 MG TABS by mouth twice a day FUROSEMIDE 58763548179 No Longer [facility] SODA ROOM OPERATOR Active AMITRIPTYLINE HCL 75 MG TABS Take one by mouth daily AMITRIPTYLINE HCL 02074575669 No Longer [facility] Active GABAPENTIN 100 MG CAPS take 2 tabs in the morning, 1 tab at lunch and 2 tabs at bedtime GABAPENTIN 57067062124 No Longer Active [facility] SODA ROOM OPERATOR Active JANUMET 50-500 MG TABS by mouth twice a day SITAGLIPTIN- METFORMIN HCL 79234931959 No Longer Active [facility] Active DIABETA 5 MG TABS by mouth twice a day GLYBURIDE 15968593305 No Longer [facility] SODA ROOM OPERATOR Active SHAUNA CONTOUR TEST STRP check blood sugars 4x/day GLUCOSE BLOOD 53800580305 No Longer [facility] SODA ROOM OPERATOR Active TRAZODONE HCL 50 MG TABS take at bedtime TRAZODONE HCL 35871105141 Active Rossi Mathews LPN Active CYMBALTA 30 MG CPEP Take one by mouth daily DULOXETINE HCL 07440681593 No Longer Active Rossi Mathews LPN Active CYMBALTA 60 MG CPEP Take one by mouth daily DULOXETINE HCL 50558777439 Active Rossi Mathews LPN Active COLACE 100 MG CAPS by mouth twice a day DOCUSATE SODIUM 22386949526 Active Rossi Mathews LPN Active MIRALAX POWD 17gm in h2o daily as directed POLYETHYLENE GLYCOL 3350 21460372904 Active Rossi Mathews LPN Active ACETAMINOPHEN 325 MG TABS 2 every 6 hrs prn ACETAMINOPHEN 65306039042 Active Rossi Reid PRICE Active [facility] MILK OF MAGNESIA 1200 MG/15ML SUSP 30 cc prn constipation MAGNESIUM HYDROXIDE 53660645843 Active Rossi Reid PRICE Active CINNAMON 500 MG TABS by mouth twice a day CINNAMON 56645740401 Active Rossi Mathews LPN Active ZINC TABS Take one by mouth daily ZINC TABS 25739641789 Active Rossi Mathews LPN Active CALCIUM + D 600-200 MG-UNIT TABS Take one by mouth daily CALCIUM CARBONATE-VITAMIN D 93031826574 Active Rossi Mathews LPN Active [facility] FOLIC ACID 400 MCG TABS Take one by mouth daily FOLIC ACID 58015851418 Active Rossi Mathews LPN Active REMERON 15 MG TABS take at bedtime MIRTAZAPINE 31836019542 Active Rossi Mathews LPN Active ADULT ASPIRIN EC LOW STRENGTH 81 MG TBEC Take one by mouth daily ASPIRIN 75925409066 Active Rossi Reid PRICE Active TRAZODONE HCL 100 MG TABS take 1-2 tabs at bedtime as needed TRAZODONE HCL 63112037658 Active Dale Pittman Active ALPRAZOLAM 0.25 MG TABS Take one by mouth 3 times daily, morning, afternoon and evening.] ALPRAZOLAM 12796027287 Active Dale Pittman Active LISINOPRIL 10 MG TABS Take one by mouth daily LISINOPRIL 20634584206 Active Dale Pittman Active CYMBALTA 30 MG CPEP Take one by mouth daily CYMBALTA 30 MG CPEP 894986 DULOXETINE HCL Inactive SHAUNA CONTOUR TEST STRP check blood sugars 4x/day SHAUNA CONTOUR TEST STRP GLUCOSE BLOOD Inactive DIABETA 5 MG TABS by mouth twice a day DIABETA 5 MG TABS 515244 GLYBURIDE Inactive JANUMET 50-500 MG TABS by mouth twice a day JANUMET 50-500 MG TABS SITAGLIPTIN-METFORMIN HCL Inactive GABAPENTIN 100 MG CAPS take 2 tabs in the morning, 1 tab at lunch and 2 tabs at bedtime GABAPENTIN 100 MG CAPS 735271 GABAPENTIN Inactive AMITRIPTYLINE HCL 75 MG TABS Take one by mouth daily AMITRIPTYLINE HCL 75 MG TABS 341715 AMITRIPTYLINE HCL Inactive FUROSEMIDE 40 MG TABS by mouth twice a day FUROSEMIDE 40 MG TABS 597503 FUROSEMIDE Inactive ZOCOR 20 MG TABS take at bedtime ZOCOR 20 MG TABS 920620 SIMVASTATIN Inactive METOPROLOL TARTRATE 25 MG TABS by mouth twice a day METOPROLOL TARTRATE 25 MG TABS 599515 METOPROLOL TARTRATE Inactive LEVEMIR 100 UNIT/ML SOLN 40u every hs LEVEMIR 100 UNIT/ML SOLN INSULIN DETEMIR Inactive AMBIEN 5 MG ORAL TABS 2 tabs every hs prn AMBIEN 5 MG ORAL TABS 365960 ZOLPIDEM TARTRATE Inactive TRESIBA FLEXTOUCH 100 UNIT/ML [...] mg/dL Encounters Code Encounter Date Provider Facility CPT-48479 Level 3 Est. Patient 10:01:00 CDT Rena Regalado [facility] [place] CPT-09693 Level 4 Est. Patient 10:17:45 CDT Rena Fabricio [facility] [place] [facility] [place] CPT-16562 Level 4 Est. Patient 17:01:22 CDT Sammi Olivares APRN [facility] CPT-49690 Level 5 Est. Patient 16:18:07 CDT [facility] Level 3 Est. Patient 17:20:16 CDT [facility] CPT-40754 Level 5 Est. Patient 09:44:15 CDT [facility] CPT-89086 Level 4 New Patient 07:56:40 MASON APPRENTICE Kevin Gramajo MD [facility] Procedures Code Procedure Name Date Entry Date Standard Description CPT-04164 Bladder Scan 17:20:16 CDT CPT-A4351 Female Cath 07:56:40 MASON APPRENTICE CPT-64368 Cystoscopy 07:56:40 MASON APPRENTICE
--- OUTSIDE RECORDS SUMMARY | 2018-10-10 10:26 | XMS REPORT | Clinical Summary ---
Author Author Admin, CARMELO Organization [facility] Address Unknown Phone Unavailable Allergies, Adverse Reactions, [...] 788.21 Active Rena TEMPLETON Incomplete bladder emptying alf use of insulin treatment V58.67 Active Rena [...] for blood sugar above 150 INSULIN ASPART 05553209697 Active Sammi Olivares MILK WAGON DRIVER Active TRESIBA FLEXTOUCH 100 UNIT/ML SC SOPN Take 60 units once a day at 6pm, add 2u/ day after 3 days until morning sugar is below 130 INSULIN DEGLUDEC 47431310914 No Longer Active Sammi Elise MILK WAGON DRIVER Active AMBIEN 5 MG ORAL TABS 2 tabs every hs prn ZOLPIDEM TARTRATE 18980285257 No Longer Active Sammi [place] MILK WAGON DRIVER Active LANCETS MISC 3 Dx E11.65 LANCETS 80712919043 Active Rena Wallerglari AUTOMATION SALES MANAGER Active SHAUNA CONTOUR NEXT TEST INVITR STRP check blood sugars 3x/day DX E11.65 05/17 GLUCOSE BLOOD 46759221472 Active Rena Wallerglari AUTOMATION SALES MANAGER Active LEVEMIR 100 UNIT/ML SOLN 40u every hs INSULIN DETEMIR 09946692379 No Longer Active [employer] Ziglari AUTOMATION SALES MANAGER Active JANUVIA 100 MG TABS Take one by mouth daily SITAGLIPTIN PHOSPHATE 89538044533 Active Sammi Olivares MILK WAGON DRIVER Active METFORMIN HCL 500 MG [id number] one a day for 5 days then 2 a day, then add one every 5 days to 4 a day METFORMIN HCL 32118034769 Active Maliheh Ziglari AUTOMATION SALES MANAGER Active OXYCODONE HCL 20 MG ORAL TABS every 8 hrs as needed OXYCODONE HCL 97648032894 Active Rena Ziglari AUTOMATION SALES MANAGER Active METOPROLOL TARTRATE 25 MG TABS by mouth twice a day METOPROLOL TARTRATE 81531425258 No Longer Active Maliheh Ziglari AUTOMATION SALES MANAGER Active ATORVASTATIN CALCIUM 80 MG ORAL TABS Take one by mouth daily ATORVASTATIN CALCIUM 91493908873 Active MalNukonaeh Ziglari AUTOMATION SALES MANAGER Active ZOCOR 20 MG TABS take at bedtime SIMVASTATIN 51932520036 No Longer Active Maliheh Ziglari AUTOMATION SALES MANAGER Active FUROSEMIDE 40 MG TABS by mouth twice a day FUROSEMIDE 21873353434 No Longer [facility]OMATION SALES MANA[facility] Active AMITRIPTYLINE HCL 75 MG TABS Take one by mouth daily AMITRIPTYLINE HCL 26829771343 No Longer [facility] AUTOMATION SALES MANAGER Active GABAPENTIN 100 MG CAPS take 2 tabs in the morning, 1 tab at lunch and 2 tabs at bedtime GABAPENTIN 60841618047 No Longer [facility] Active JANUMET 50-500 MG TABS by mouth twice a day SITAGLIPTIN- METFORMIN HCL 30135167845 No Longer Active [facility] Active DIABETA 5 MG TABS by mouth twice a day GLYBURIDE 64741520429 No Longer Active [facility] AUTOMATION SALES MANAGER Active SHAUNA CONTOUR TEST STRP check blood sugars 4x/day GLUCOSE BLOOD 30028092306 No Longer Active [facility] Active TRAZODONE HCL 50 MG TABS take at bedtime TRAZODONE HCL 39378076953 Active Rossi Mathews LPN Active CYMBALTA 30 MG CPEP Take one by mouth daily DULOXETINE HCL 69385403560 No Longer Active Rossi Mathews LPN Active CYMBALTA 60 MG CPEP Take one by mouth daily DULOXETINE HCL 40941803543 Active Rossi Mathews LPN Active COLACE 100 MG CAPS by mouth twice a day DOCUSATE SODIUM 64015060086 Active Rossi Mathews LPN Active MIRALAX POWD 17gm in h2o daily as directed POLYETHYLENE GLYCOL 3350 11031466209 Active Rossi Mathews LPN Active ACETAMINOPHEN 325 MG TABS 2 every 6 hrs prn ACETAMINOPHEN 33280941809 Active Rossi Mathews LPN Active [facility] MILK OF MAGNESIA 1200 MG/15ML SUSP 30 cc prn constipation MAGNESIUM HYDROXIDE 33246739724 Active Rossi Mathews LPN Active CINNAMON 500 MG TABS by mouth twice a day CINNAMON 92793069453 Active Rossi Reid PRICE Active ZINC TABS Take one by mouth daily ZINC TABS 69419387926 Active Rossi Reid PRICE Active CALCIUM + D 600-200 MG-UNIT TABS Take one by mouth daily CALCIUM CARBONATE-VITAMIN D 27962769966 Active Rossi Reid PRICE Active [facility] FOLIC ACID 400 MCG TABS Take one by mouth daily FOLIC ACID 04312703651 Active Rossi Reid PRICE Active REMERON 15 MG TABS take at bedtime MIRTAZAPINE 60582844468 Active Rossi Reid PRICE Active ADULT ASPIRIN EC LOW STRENGTH 81 MG TBEC Take one by mouth daily ASPIRIN 68219041884 Active Rossi Reid PRICE Active TRAZODONE HCL 100 MG TABS take 1-2 tabs at bedtime as needed TRAZODONE HCL 87019583448 Active Dale Pittman Active ALPRAZOLAM 0.25 MG TABS Take one by mouth 3 times daily, morning, afternoon and evening.] ALPRAZOLAM 95196902188 Active Dale Pittman Active LISINOPRIL 10 MG TABS Take one by mouth daily LISINOPRIL 80825201008 Active Dale Pittman Active CYMBALTA 30 MG CPEP Take one by mouth daily CYMBALTA 30 MG CPEP 561332 DULOXETINE HCL Inactive SHAUNA CONTOUR TEST STRP [...] tabs at bedtime GABAPENTIN 100 MG CAPS 925169 GABAPENTIN Inactive AMITRIPTYLINE HCL 75 MG TABS Take one by mouth daily AMITRIPTYLINE HCL 75 MG TABS 413648 AMITRIPTYLINE HCL Inactive FUROSEMIDE 40 MG TABS by mouth twice a day FUROSEMIDE 40 MG TABS 842863 FUROSEMIDE Inactive ZOCOR 20 MG TABS take at bedtime ZOCOR 20 MG TABS 655457 SIMVASTATIN Inactive METOPROLOL TARTRATE 25 MG TABS by mouth twice a day METOPROLOL TARTRATE 25 MG TABS 806214 METOPROLOL TARTRATE Inactive LEVEMIR 100 UNIT/ML SOLN 40u every hs LEVEMIR 100 UNIT/ML SOLN INSULIN DETEMIR Inactive AMBIEN 5 MG ORAL TABS 2 tabs every hs prn AMBIEN 5 MG ORAL TABS 996783 ZOLPIDEM TARTRATE Inactive TRESIBA FLEXTOUCH 100 UNIT/ML [...] mg/dL Encounters Code Encounter Date Provider Facility CPT-21911 Level 4 Est. Patient 17:01:22 CDT Sammi Olivares [facility] CPT-77838 Level 5 Est. Patient 16:18:07 CDT [facility] CPT-81124 Level 3 Est. Patient 17:20:16 CDT [facility] CPT-70623 Level 5 Est. Patient 09:44:15 CDT [facility] CPT-26613 Level 4 New Patient 07:56:40 SOUND EFFECTS MANAGER Kevin Gramajo MD [facility] Procedures Code Procedure Name Date Entry Date Standard Description CPT-41821 Bladder Scan 17:20:16 CDT CPT-A4351 Female Cath 07:56:40 SOUND EFFECTS MANAGER CPT-60600 Cystoscopy 07:56:40 SOUND EFFECTS MANAGER
--- OUTSIDE RECORDS SUMMARY | 2018-10-10 10:26 | XMS REPORT | Clinical Summary ---
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 INSULIN DEGLUDEC 87331560623 Active Maliheh Ziglari BOBBIN PAINTER Active METFORMIN HCL ER 500 MG ORAL TABLET EXTENDED RELEASE 24 HOUR take 4 a day METFORMIN HCL 13590213283 Active Sammi Olivares APRN Active NOVOLOG FLEXPEN 100 UNIT/ML SUBCUTANEOUS SOLUTION PEN-INJECTOR Take 15units with each meal, add 2u/50 for blood sugars above 150, max dose 40u tid INSULIN ASPART 02228756204 Active Maliheh Ziglari BOBBIN PAINTER Active PEN NEEDLES 31G X 5 MM for a day for insulin injections INSULIN PEN NEEDLE 31401122394 Active Maliheh Ziglari BOBBIN PAINTER Active TRESIBA FLEXTOUCH 100 UNIT/ML SUBCUTANEOUS SOLUTION PEN-INJECTOR Take 60 units once a day at 6pm, add 2u/day after 3 days until morning sugar is below 130 INSULIN DEGLUDEC 81464337892 No Longer Active Sammi Olivares APRN Active AMBIEN 5 MG ORAL TABLET 2 tabs every hs prn ZOLPIDEM TARTRATE 62020593694 No Longer Active Sammi Olivares APRN Active LANCETS 3 Dx E11.65 LANCETS 13474761368 Active Maliheh Ziglari BOBBIN PAINTER Active SHAUNA CONTOUR NEXT TEST IN VITRO STRIP check blood sugars 3x/day DX E11.65 GLUCOSE BLOOD 49276043098 Active Maliheh Ziglari BOBBIN PAINTER Active LEVEMIR 100 UNIT/ML SUBCUTANEOUS SOLUTION 40u every hs INSULIN DETEMIR 42566883964 No Longer Active [facility] Sridharglari [facility] Active JANUVIA 100 MG ORAL TABLET Take one by mouth daily SITAGLIPTIN PHOSPHATE 64469875566 Active Sammi Olivares APRN Active OXYCODONE HCL 20 MG ORAL TABLET every 8 hrs as needed OXYCODONE HCL 28916792965 Active [facility] Sridharglari [facility] Active METOPROLOL TARTRATE 25 MG ORAL TABLET by mouth twice a day METOPROLOL TARTRATE 86096647418 No Longer Active [facility] Sridharglari [facility] Active ATORVASTATIN CALCIUM 80 MG ORAL TABLET Take one by mouth daily ATORVASTATIN CALCIUM 39970083907 Active [facility] Active ZOCOR 20 MG ORAL TABLET take at bedtime SIMVASTATIN 81625590500 No Longer Active [facility] Sridharglari [facility] Active FUROSEMIDE 40 MG ORAL TABLET by mouth twice a day FUROSEMIDE 31965351180 No Longer Active [facility] Active AMITRIPTYLINE HCL 75 MG ORAL TABLET Take one by mouth daily AMITRIPTYLINE HCL 26761639971 No Longer Active [facility] Sridharari [facility] Active GABAPENTIN 100 MG ORAL CAPSULE take 2 tabs in the morning, 1 tab at lunch and 2 tabs at bedtime GABAPENTIN 92383571903 No Longer [facility] Active JANUMET 50-500 MG ORAL TABLET by mouth twice a day SITAGLIPTIN -METFORMIN HCL 71498359563 No Longer Active [facility] Sridharari [facility] Active DIABETA 5 MG ORAL TABLET by mouth twice a day GLYBURIDE 58133142083 No Longer [facility] BOBBIN PAINTER Active SHAUNA CONTOUR TEST IN VITRO STRIP check blood sugars 4x/day 05/17 GLUCOSE BLOOD 31969917918 No Longer Active [facility] Sridharglari BOBBIN PAINTER Active TRAZODONE HCL 50 MG ORAL TABLET take at bedtime TRAZODONE HCL 89524178020 Active Rossi Mathews LPN Active CYMBALTA 30 MG ORAL CAPSULE DELAYED RELEASE PARTICLES Take one by mouth daily DULOXETINE HCL 09881305609 No Longer Active Rossi Mathews LPN Active CYMBALTA 60 MG ORAL CAPSULE DELAYED RELEASE PARTICLES Take one by mouth daily DULOXETINE HCL 21071326753 Active Rossi Mathews LPN Active COLACE 100 MG ORAL CAPSULE by mouth twice a day DOCUSATE SODIUM 01980335558 Active Rossi Mathews LPN Active MIRALAX ORAL POWDER 17gm in h2o daily as directed POLYETHYLENE GLYCOL 3350 58067082354 Active Rossi Mathews LPN Active ACETAMINOPHEN 325 MG ORAL TABLET 2 every 6 hrs prn ACETAMINOPHEN 87740236233 Active Rossi Mathews LPN Active [facility] MILK OF MAGNESIA 1200 MG/15ML ORAL SUSPENSION 30 cc prn constipation 2011 MAGNESIUM HYDROXIDE 55543829607 Active Rossi Mathews LPN Active CINNAMON 500 MG ORAL TABLET by mouth twice a day CINNAMON 51535599695 Active Rossi Mathews LPN Active ZINC TABLET Take one by mouth daily ZINC TABS 83987209787 Active Rossi Mathews LPN Active CALCIUM + D 600-200 MG-UNIT TABS Take one by mouth daily CALCIUM CARBONATE-VITAMIN D 90274982345 Active Rossi Mathews LPN Active [facility] FOLIC ACID 400 MCG ORAL TABLET Take one by mouth daily FOLIC ACID 62655551720 Active Rossi Mathews LPN Active REMERON 15 MG ORAL TABLET take at bedtime MIRTAZAPINE 66469565662 Active Rossi Mathews LPN Active ADULT ASPIRIN EC LOW STRENGTH 81 MG ORAL TABLET DELAYED RELEASE Take one by mouth daily ASPIRIN 60067956500 Active Rossi Mathews LPN Active TRAZODONE HCL 100 MG ORAL TABLET take 1-2 tabs at bedtime as needed TRAZODONE HCL 75637777976 Active Dale Brinkmeyer Active ALPRAZOLAM 0.25 MG ORAL TABLET Take one by mouth 3 times daily, morning, afternoon and evening.] ALPRAZOLAM 41839398529 Active Dale Brinkmeyer Active LISINOPRIL 10 MG ORAL TABLET Take one by mouth daily LISINOPRIL 86347685759 Active Dale Brinkmeyer Active CYMBALTA 30 MG ORAL CAPSULE DELAYED RELEASE PARTICLES Take one by mouth daily CYMBALTA 30 MG ORAL CAPSULE DELAYED RELEASE PARTICLES 326552 DULOXETINE HCL Inactive SHAUNA CONTOUR TEST IN VITRO STRIP check blood sugars 4x/day 05/17 SHAUNA CONTOUR TEST IN VITRO STRIP GLUCOSE BLOOD Inactive DIABETA 5 MG ORAL TABLET by mouth twice a day DIABETA 5 MG ORAL TABLET 492339 GLYBURIDE Inactive JANUMET 50-500 MG ORAL TABLET by mouth twice a day JANUMET 50- 500 MG ORAL TABLET SITAGLIPTIN-METFORMIN HCL Inactive GABAPENTIN 100 MG ORAL CAPSULE take 2 tabs in the morning, 1 tab at lunch and 2 tabs at bedtime GABAPENTIN 100 MG ORAL CAPSULE 824131 GABAPENTIN Inactive AMITRIPTYLINE HCL 75 MG ORAL TABLET Take one by mouth daily AMITRIPTYLINE HCL 75 MG ORAL TABLET 803950 AMITRIPTYLINE HCL Inactive FUROSEMIDE 40 MG ORAL TABLET by mouth twice a day FUROSEMIDE 40 MG ORAL TABLET 996559 FUROSEMIDE Inactive ZOCOR 20 MG ORAL TABLET take at bedtime ZOCOR 20 MG ORAL TABLET 698725 SIMVASTATIN Inactive METOPROLOL TARTRATE 25 MG ORAL TABLET by mouth twice a day METOPROLOL TARTRATE 25 MG ORAL TABLET 004243 METOPROLOL TARTRATE Inactive LEVEMIR 100 UNIT/ML SUBCUTANEOUS SOLUTION 40u every hs LEVEMIR 100 UNIT/ML SUBCUTANEOUS SOLUTION INSULIN DETEMIR Inactive AMBIEN 5 MG ORAL TABLET 2 tabs every hs prn AMBIEN 5 MG ORAL TABLET 156040 ZOLPIDEM TARTRATE Inactive TRESIBA FLEXTOUCH 100 UNIT/ML [...] mg/dL Encounters Code Encounter Date Provider Facility CPT-11862 Level 3 Est. Patient 14:55:50 [facility] CPT-44426 Level 3 Est. Patient 10:01:00 CDT [facility] CPT-53224 Level 4 Est. Patient 10:17:45 CDT [facility] CPT-42745 Level 4 Est. Patient 17:01:22 CDT [facility] CPT-10578 Level 5 Est. Patient 16:18:07 CDT [facility] CPT-94951 Level 3 Est. Patient 17:20:16 CDT [facility] CPT-70164 Level 5 Est. Patient 09:44:15 CDT Rena Regalado JARETH [facility] CPT-32086 Level 4 New Patient 07:56:40 FLANGER Kevin Gramajo MD [facility] Procedures Code Procedure Name Date Entry Date Standard Description CPT-65188 First Vx - Ix admin via ID IM or jet injects without counseling by physician 14:59:49 FLANGER CPT-66581 Fluzone Quadrivalent Intramuscular Suspension 0.5 ML 14: 59:49 FLANG[facility] CPT-93687 Bladder Scan 17:20:16 CDT CPT-A4351 Female Cath 07:56:40 FLANGER CPT-67183 Cystoscopy 07:56:40 FLANGER
--- OUTSIDE RECORDS SUMMARY | 2018-10-10 10:27 | XMS REPORT | Clinical Summary ---
Author Author Admin, CARMELO Grajeda [facility] Address Unknown Phone Unavailable Allergies, Adverse Reactions, Alerts Allergy Name Reaction Description Start Date Severity Status Provider No Known Allergies Maliheh Ziglari TRAVEL MED SURG RN Conditions or Problems Problem Name Problem Code [...] TYPE II, UNCONTROLLED 250.02 Active Maliheh Sridharglari TRAVEL MED SURG RN Diabetes mellitus without mention of complication, type II or unspecified type, uncontrolled NEUROGENIC BLADDER 596.54 Active Maliheh Ziglari TRAVEL MED SURG RN Neurogenic bladder NOS INCOMPLETE BLADDER EMPTYING 788.21 Active Maliheh Ziglari TRAVEL MED SURG RN Incomplete bladder emptying Medication List Medication Instructions Start Date Stop Date Generic Name NDC Status Provider Patient Instruction SHAUNA CONTOUR TEST STRP check blood sugars 4x/day GLUCOSE BLOOD 16817199816 Active Maliheh Ziglari TRAVEL MED SURG RN Active TRAZODONE HCL 50 MG TABS take at bedtime TRAZODONE HCL 79369658889 Active Rossi Mathews LPN Active CYMBALTA 30 MG CPEP Take one by mouth daily DULOXETINE HCL 03715621368 No Longer Active Rossi Mathews AUDIO VISUAL EQUIPMENT RENTAL CLERK Active CYMBALTA 60 MG CPEP Take one by mouth daily DULOXETINE HCL 56878246214 Active Rossi Mathews AUDIO VISUAL EQUIPMENT RENTAL CLERK Active COLACE 100 MG CAPS by mouth twice a day DOCUSATE SODIUM 04205689336 Active Rossi Mathews AUDIO VISUAL EQUIPMENT RENTAL CLERK Active MIRALAX POWD 17gm in h2o daily as directed POLYETHYLENE GLYCOL 3350 59346430078 Active Rossi Mathews AUDIO VISUAL EQUIPMENT RENTAL CLERK Active ACETAMINOPHEN 325 MG TABS 2 every 6 hrs prn ACETAMINOPHEN 46121159649 Active Rossi Reid GRIFFITHN Active [facility] MILK OF MAGNESIA 1200 MG/15ML SUSP 30 cc prn constipation MAGNESIUM HYDROXIDE 15048576406 Active Rossi Mathews AUDIO VISUAL EQUIPMENT RENTAL CLERK Active CINNAMON 500 MG TABS by mouth twice a day CINNAMON 04676915538 Active Rossi Reid GRIFFITHN Active LEVEMIR 100 UNIT/ML SOLN 40u every hs INSULIN DETEMIR 87950770348 Active Rossi Reid GRIFFITHN Active ZOCOR 20 MG TABS take at bedtime SIMVASTATIN 26253768326 Active Rossi Reid GRIFFITHN Active ZINC TABS Take one by mouth daily ZINC TABS 72940862441 Active Rossi Reid GRIFFITHN Active CALCIUM + D 600-200 MG-UNIT TABS Take one by mouth daily CALCIUM CARBONATE-VITAMIN D 80478940072 Active Rossi Reid GRIFFITHN Active [facility] FOLIC ACID 400 MCG TABS Take one by mouth daily FOLIC ACID 90569873749 Active Rossi Reid GRIFFITHN Active REMERON 15 MG TABS take at bedtime MIRTAZAPINE 71680743136 Active Rossi Reid GRIFFITHN Active ADULT ASPIRIN EC LOW STRENGTH 81 MG TBEC Take one by mouth daily ASPIRIN 84092775369 Active Rossi Reid GRIFFITHN Active DIABETA 5 MG TABS by mouth twice a day GLYBURIDE 16565071296 Active Dale Jenyer Active TRAZODONE HCL 100 MG TABS take 1-2 tabs at bedtime as needed TRAZODONE HCL 93761346591 [facility] Active JANUMET 50-500 MG TABS by mouth twice a day SITAGLIPTIN-METFORMIN HCL 56511302303 Active Dale Brinkmeyer Active GABAPENTIN 100 MG CAPS take 2 tabs in the morning, 1 tab at lunch and 2 tabs at bedtime GABAPENTIN 00681390855 [facility] Active AMITRIPTYLINE HCL 75 MG TABS Take one by mouth daily AMITRIPTYLINE HCL 76690343025 Active Dale Brinkmeyer Active NOVOLOG 100 UNIT/ML SOLN give 14 units subq three times daily INSULIN ASPART 38440696324 Active Dale Brinkmeyer Active FUROSEMIDE 40 MG TABS by mouth twice a day FUROSEMIDE 65742090382 Active Dale Brinkmeyer Active METOPROLOL TARTRATE 25 MG TABS by mouth twice a day METOPROLOL TARTRATE 76274257775 [facility] Active ALPRAZOLAM 0.25 MG TABS Take one by mouth 3 times daily, morning, afternoon and evening.] ALPRAZOLAM 28969909426 [facility] Active LISINOPRIL 10 MG TABS Take one by mouth daily LISINOPRIL 80518515227 Active [facility] Active CYMBALTA 30 MG CPEP Take one by mouth daily CYMBALTA 30 MG CPEP 725921 DULOXETINE HCL Inactive Diagnostic Results Date Name Value Unit Range Description Chart Maintenance: outside lab added to flowsheet - Chemistry hemoglobin A1C, blood, as % of total hemoglobin 11.2 % blood glucose 300 mg/dL creatinine, serum 1.00 mg/dL Encounters Code Encounter Date Provider Facility CPT-82063 Level 3 Est. [facility]20[facility] CPT-66087 Level 5 Est. Patient 09:44:15 CDT [facility] CPT-55575 Level 4 New Patient 07:56:40 VINITA Gramajo MD [facility] Procedures Code Procedure Name Date Entry Date Standard Description CPT-77645 Bladder Scan 17:20:16 CDT CPT-A4351 Female Cath 07:56:40 BALL MACHINE OPERATOR CPT-44761 Cystoscopy 07:56:40 BALL MACHINE OPERATOR
--- OUTSIDE RECORDS SUMMARY | 2018-10-10 10:27 | XMS REPORT | Clinical Summary ---
Author Author Admin, CARMELO Organization [facility] Address Unknown Phone Unavailable Allergies, Adverse Reactions, Alerts Allergy Name Reaction Description Start Date Severity Status Provider No Known Allergies Rossi Mathews LPN Conditions or Problems Problem Name Problem Code Onset Date Status Entry Date Provider Comment Standard Description Annotate History of ANXIETY 300.00 Active Kevin Gramajo MD Anxiety state, unspecified DEPRESSION 311 Active Keivn Gramajo MD Depressive disorder, not elsewhere classified [...] 788.21 Active Rena TEMPLETON Incomplete bladder emptying jail use of insulin treatment V58.67 Active Rena [...] SC SOPN Take 40 daily. INSULIN DEGLUDEC 14422941791 Active Maliheh Ziglari MACHINE GREASER Active METFORMIN HCL 500 MG [id number] take 4 a day METFORMIN HCL 63800353139 Active Maliheh Ziglari MACHINE GREASER Active NOVOLOG FLEXPEN 100 UNIT/ML SOPN Take 15units with each meal, add 2u/50 for blood sugars above 150, max dose 40u tid INSULIN ASPART 01842148215 Active Jasmeetiheh Ziglari MACHINE GREASER Active PEN NEEDLES 31G X 5 MM MISC for a day for insulin injections INSULIN PEN NEEDLE 11994507996 Active Rena Ziglari MACHINE GREASER Active TRESIBA FLEXTOUCH 100 UNIT/ML SC SOPN Take 60 units once a day at 6pm, add 2u/ day after 3 days until morning sugar is below 130 INSULIN DEGLUDEC 89310420738 No Longer Active Sammi Olivares APRN Active AMBIEN 5 MG ORAL TABS 2 tabs every hs prn ZOLPIDEM TARTRATE 12217828744 No Longer Active Sammi Olivares APRN Active LANCETS MISC 3 Dx E11.65 LANCETS 69978101856 Active Jasmeetgregever Ziglari MACHINE GREASER Active SHAUNA CONTOUR NEXT TEST INVITR STRP check blood sugars 3x/day DX E11.65 05/17 GLUCOSE BLOOD 86970499585 Active Jasmeetgregever Sridharglari MACHINE GREASER Active LEVEMIR 100 UNIT/ML SOLN 40u every hs INSULIN DETEMIR 98147618772 No Longer Active Jasmeetgregever Ziglari MACHINE GREASER Active JANUVIA 100 MG TABS Take one by mouth daily SITAGLIPTIN PHOSPHATE 23014994427 Active Sammi Neotsu HOSPITALITY SERVICES MANAGER Active OXYCODONE HCL 20 MG ORAL TABS every 8 hrs as needed OXYCODONE HCL 34629563476 Active Jasmeetgregever Sridharglari MACHINE GREASER Active METOPROLOL TARTRATE 25 MG TABS by mouth twice a day METOPROLOL TARTRATE 23717875391 No Longer Active Maliheh Ziglari MACHINE GREASER Active ATORVASTATIN CALCIUM 80 MG ORAL TABS Take one by mouth daily ATORVASTATIN CALCIUM 20201150861 [facility] Active ZOCOR 20 MG TABS take at bedtime SIMVASTATIN 11295653798 No Longer [facility] Active FUROSEMIDE 40 MG TABS by mouth twice a day FUROSEMIDE 54507207672 No Longer [facility] M[facility] GRE[facility] Active AMITRIPTYLINE HCL 75 MG TABS Take one by mouth daily AMITRIPTYLINE HCL 83368488907 No Longer [facility] Active GABAPENTIN 100 MG CAPS take 2 tabs in the morning, 1 tab at lunch and 2 tabs at bedtime GABAPENTIN 85611768618 No Longer [facility] MACHINE GREAS[facility] Active JANUMET 50-500 MG TABS by mouth twice a day SITAGLIPTIN- METFORMIN HCL 00668171873 No Longer Active [facility] Active DIABETA 5 MG TABS by mouth twice a day GLYBURIDE 77671431006 No Longer [facility] MACHINE GREASER Active SHAUNA CONTOUR TEST STRP check blood sugars 4x/day GLUCOSE BLOOD 55851784488 No Longer [facility] M[facility] GRE[facility] Active TRAZODONE HCL 50 MG TABS take at bedtime TRAZODONE HCL 34580297599 Active Rossi Mathews LPN Active CYMBALTA 30 MG CPEP Take one by mouth daily DULOXETINE HCL 17933680723 No Longer Active Rossi Mathews LPN Active CYMBALTA 60 MG CPEP Take one by mouth daily DULOXETINE HCL 49843669703 Active Rossi Mathews LPN Active COLACE 100 MG CAPS by mouth twice a day DOCUSATE SODIUM 24952728299 Active Rossi Mathews LPN Active MIRALAX POWD 17gm in h2o daily as directed POLYETHYLENE GLYCOL 3350 77899793541 Active Rossi Mathews LPN Active ACETAMINOPHEN 325 MG TABS 2 every 6 hrs prn ACETAMINOPHEN 25072490235 Active Rossi Reid PRICE Active [facility] MILK OF MAGNESIA 1200 MG/15ML SUSP 30 cc prn constipation MAGNESIUM HYDROXIDE 55567440018 Active Rossi Mathews LPN Active CINNAMON 500 MG TABS by mouth twice a day CINNAMON 42010799080 Active Rossi Mathews LPN Active ZINC TABS Take one by mouth daily ZINC TABS 19217229324 Active Rossi Mathews LPN Active CALCIUM + D 600-200 MG-UNIT TABS Take one by mouth daily CALCIUM CARBONATE-VITAMIN D 81674241434 Active Rossi Mathews LPN Active [facility] FOLIC ACID 400 MCG TABS Take one by mouth daily FOLIC ACID 56320081250 Active Rossi Mathews LPN Active REMERON 15 MG TABS take at bedtime MIRTAZAPINE 79536188158 Active Rossi Mathews LPN Active ADULT ASPIRIN EC LOW STRENGTH 81 MG TBEC Take one by mouth daily ASPIRIN 11269201604 Active Rossi Reid PRICE Active TRAZODONE HCL 100 MG TABS take 1-2 tabs at bedtime as needed TRAZODONE HCL 36833755805 Active Dale Pittman Active ALPRAZOLAM 0.25 MG TABS Take one by mouth 3 times daily, morning, afternoon and evening.] ALPRAZOLAM 56567280588 Active Dale Pittman Active LISINOPRIL 10 MG TABS Take one by mouth daily LISINOPRIL 99192147438 Active Dale Pittman Active CYMBALTA 30 MG CPEP Take one by mouth daily CYMBALTA 30 MG CPEP 291994 DULOXETINE HCL Inactive SHAUNA CONTOUR TEST STRP [...] tabs at bedtime GABAPENTIN 100 MG CAPS 342598 GABAPENTIN Inactive AMITRIPTYLINE HCL 75 MG TABS Take one by mouth daily AMITRIPTYLINE HCL 75 MG TABS 701147 AMITRIPTYLINE HCL Inactive FUROSEMIDE 40 MG TABS by mouth twice a day FUROSEMIDE 40 MG TABS 768551 FUROSEMIDE Inactive ZOCOR 20 MG TABS take at bedtime ZOCOR 20 MG TABS 469771 SIMVASTATIN Inactive METOPROLOL TARTRATE 25 MG TABS by mouth twice a day METOPROLOL TARTRATE 25 MG TABS 354775 METOPROLOL TARTRATE Inactive LEVEMIR 100 UNIT/ML SOLN 40u every hs LEVEMIR 100 UNIT/ML SOLN INSULIN DETEMIR Inactive AMBIEN 5 MG ORAL TABS 2 tabs every hs prn AMBIEN 5 MG ORAL TABS 275982 ZOLPIDEM TARTRATE Inactive TRESIBA FLEXTOUCH 100 UNIT/ML [...] mg/dL Encounters Code Encounter Date Provider Facility CPT-64673 Level 3 Est. Patient 10:01:00 CDT Rena Regalado [facility] CPT-91002 Level 4 Est. Patient 10:17:45 CDT [facility] Level 4 Est. Patient 17:01:22 CDT Sammi Olivares APRN [facility] CPT-83883 Level 5 Est. Patient 16:18:07 CDT [facility] 3 Est. Patient 17:20:16 CDT [facility] CPT-44674 Level 5 Est. Patient 09:44:15 CDT [facility] CPT-60045 Level 4 New Patient 07:56:40 TAXI SERVICER Kevin Gramajo MD [facility] Procedures Code Procedure Name Date Entry Date Standard Description CPT-14440 Bladder Scan 17:20:16 CDT CPT-A4351 Female Cath 07:56:40 TAXI SERVICER CPT-67758 Cystoscopy 07:56:40 TAXI SERVICER
--- OUTSIDE RECORDS SUMMARY | 2018-10-10 10:27 | XMS REPORT | Clinical Summary ---
Author Author Admin, CARMELO Grajeda 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 Dx E11.65 LANCETS 21104643014 Active Maliheh Ziglari HEALTH RECORD TECHNICIAN Active SHAUNA CONTOUR NEXT TEST INVITR STRP check blood sugars 3x/day DX E11.65 05/17 GLUCOSE BLOOD 69432827060 Active Jasmeetiheh Ziglari HEALTH RECORD TECHNICIAN Active LEVEMIR 100 UNIT/ML SOLN 40u every hs INSULIN DETEMIR 81146384549 No Longer Active Jasmeetiheh Ziglari HEALTH RECORD TECHNICIAN Active TRESIBA FLEXTOUCH 100 UNIT/ML SC SOPN Take 60 units once a day at 6pm, add 2u/ day after 3 days until morning sugar is below 130 INSULIN DEGLUDEC 89465538149 Active Rena Ziglari HEALTH RECORD TECHNICIAN Active JANUVIA 100 MG TABS Take one by mouth daily SITAGLIPTIN PHOSPHATE 61114302880 Active Rena Ziglari HEALTH RECORD TECHNICIAN Active METFORMIN HCL 500 MG [id number] one a day for 5 days then 2 a day, then add one every 5 days to 4 a day METFORMIN HCL 75208418713 Active Rena Ziglari HEALTH RECORD TECHNICIAN Active AMBIEN 5 MG ORAL TABS 2 tabs every hs prn ZOLPIDEM TARTRATE 39069749010 Active Rena Ziglari HEALTH RECORD TECHNICIAN Active OXYCODONE HCL 20 MG ORAL TABS every 8 hrs as needed OXYCODONE HCL 88032301528 Active Rena Ziglari HEALTH RECORD TECHNICIAN Active METOPROLOL TARTRATE 25 MG TABS by mouth twice a day METOPROLOL TARTRATE 26957063265 No Longer [facility] HEALTH RECORD TECHNICIAN Active ATORVASTATIN CALCIUM 80 MG ORAL TABS Take one by mouth daily ATORVASTATIN CALCIUM 48081356429 Active Jasmeetihever Ziglari HEALTH RECORD TECHNICIAN Active ZOCOR 20 MG TABS take at bedtime SIMVASTATIN 28657528674 No Longer Active Maliheh Ziglari HEALTH RECORD TECHNICIAN Active FUROSEMIDE 40 MG TABS by mouth twice a day FUROSEMIDE 73828464197 No Longer Active Maliheh Ziglari HEALTH RECORD TECHNICIAN Active AMITRIPTYLINE HCL 75 MG TABS Take one by mouth daily AMITRIPTYLINE HCL 33723166030 No Longer Active [facility] Ziglari HEALTH RECORD TECHNICIAN Active GABAPENTIN 100 MG CAPS take 2 tabs in the morning, 1 tab at lunch and 2 tabs at bedtime GABAPENTIN 31362817183 No Longer Active [facility] Ziglari HEALTH RECORD TECHNICIAN Active JANUMET 50-500 MG TABS by mouth twice a day SITAGLIPTIN- METFORMIN HCL 75830644324 No Longer Active [facility] Ziglari HEALTH RECORD TECHNICIAN Active DIABETA 5 MG TABS by mouth twice a day GLYBURIDE 29699599401 No Longer Active [facility] Ziglari HEALTH RECORD TECHNICIAN Active SHAUNA CONTOUR TEST STRP check blood sugars 4x/day GLUCOSE BLOOD 96449814418 No Longer Active [facility] Ziglari HEALTH RECORD TECHNICIAN Active TRAZODONE HCL 50 MG TABS take at bedtime TRAZODONE HCL 59885126519 Active Rossi Mathews LPN Active CYMBALTA 30 MG CPEP Take one by mouth daily DULOXETINE HCL 93723030941 No Longer Active Rossi Mathews LPN Active CYMBALTA 60 MG CPEP Take one by mouth daily DULOXETINE HCL 86465575217 Active Rossi Mathews LPN Active COLACE 100 MG CAPS by mouth twice a day DOCUSATE SODIUM 57631300580 Active Rossi Mathews LPN Active MIRALAX POWD 17gm in h2o daily as directed POLYETHYLENE GLYCOL 3350 65510867320 Active Rossi Mathews LPN Active ACETAMINOPHEN 325 MG TABS 2 every 6 hrs prn ACETAMINOPHEN 06037683952 Active Rossi Mathews LPN Active [facility] MILK OF MAGNESIA 1200 MG/15ML SUSP 30 cc prn constipation MAGNESIUM HYDROXIDE 55437930664 Active Rossi Mathews LPN Active CINNAMON 500 MG TABS by mouth twice a day CINNAMON 78162523006 Active Rossi Mathews LPN Active ZINC TABS Take one by mouth daily ZINC TABS 47783857749 Active Rossi Mathews LPN Active CALCIUM + D 600-200 MG-UNIT TABS Take one by mouth daily CALCIUM CARBONATE-VITAMIN D 60874739116 Active Rossi Reid PRICE Active [facility] FOLIC ACID 400 MCG TABS Take one by mouth daily FOLIC ACID 01561621830 Active Rossi Reid PRICE Active REMERON 15 MG TABS take at bedtime MIRTAZAPINE 75636547308 Active Rossi Reid PRICE Active ADULT ASPIRIN EC LOW STRENGTH 81 MG TBEC Take one by mouth daily ASPIRIN 77069483115 Active Rossi Reid PRICE Active TRAZODONE HCL 100 MG TABS take 1-2 tabs at bedtime as needed TRAZODONE HCL 38703703471 Active Dale Brjessicamejasmin Active NOVOLOG 100 UNIT/ML SOLN give 14 units subq three times daily INSULIN ASPART 93006975691 Active Dale Brinkmejasmin Active ALPRAZOLAM 0.25 MG TABS Take one by mouth 3 times daily, morning, afternoon and evening.] ALPRAZOLAM 05124280889 Active Dale Brinkmeyer Active LISINOPRIL 10 MG TABS Take one by mouth daily LISINOPRIL 07183613144 Active Dale Brinkmeyer Active CYMBALTA 30 MG CPEP Take one by mouth daily CYMBALTA 30 MG CPEP 904073 DULOXETINE HCL Inactive SHAUNA CONTOUR TEST STRP [...] tabs at bedtime GABAPENTIN 100 MG CAPS 521527 GABAPENTIN Inactive AMITRIPTYLINE HCL 75 MG TABS Take one by mouth daily AMITRIPTYLINE HCL 75 MG TABS 042721 AMITRIPTYLINE HCL Inactive FUROSEMIDE 40 MG TABS by mouth twice a day FUROSEMIDE 40 MG TABS 082181 FUROSEMIDE Inactive ZOCOR 20 MG TABS take at bedtime ZOCOR 20 MG TABS 305617 SIMVASTATIN Inactive METOPROLOL TARTRATE 25 MG TABS by mouth twice a day METOPROLOL TARTRATE 25 MG TABS 139692 METOPROLOL TARTRATE Inactive LEVEMIR 100 UNIT/ML SOLN 40u every hs LEVEMIR 100 UNIT/ML SOLN INSULIN DETEMIR Inactive Vital Signs Date Name Value Unit Range Description blood pressure, diastolic 80 mm[Hg] BP ocronado blood pressure, systolic 128 mm[Hg] BP sys [...] mg/dL Encounters Code Encounter Date Provider Facility CPT-06018 Level 5 Est. Patient 16:18:07 CDT [facility] CPT-21200 Level 3 Est. Patient 17:20:16 CDT [facility] CPT-71085 Level 5 Est. Patient 09:44:15 CDT [facility] CPT-70401 Level 4 New Patient 07:56:40 VINITA Gramajo MD [facility] Procedures Code Procedure Name Date Entry Date Standard Description CPT-03610 Bladder Scan 17:20:16 CDT CPT-A4351 Female Cath 07:56:40 SOFTWARE TRAINER CPT-69843 Cystoscopy 07:56:40 SOFTWARE TRAINER
--- OUTSIDE RECORDS SUMMARY | 2018-10-10 10:28 | XMS REPORT | Clinical Summary ---
Author Author Admin, CARMELO Organization [facility] Address Unknown Phone Unavailable Allergies, Adverse [...] SC SOPN Take 45 daily. INSULIN DEGLUDEC 63982972227 Active Malihever Ziglari THREAD CHECKER Active NOVOLOG 100 UNIT/ML SOLN give 14 units subq three times daily Add 4units per 50 for blood sugar above 150 INSULIN ASPART 62967590622 Active Sammi [place] CASE COORDINATOR Active TRESIBA FLEXTOUCH 100 UNIT/ML SC SOPN Take 60 units once a day at 6pm, add 2u/ day after 3 days until morning sugar is below 130 INSULIN DEGLUDEC 73965795562 No Longer Active Sammi Elise CASE COORDINATOR Active AMBIEN 5 MG ORAL TABS 2 tabs every hs prn ZOLPIDEM TARTRATE 32214796477 No Longer Active Sammi Olivares CASE COORDINATOR Active LANCETS MISC 3 Dx E11.65 LANCETS 59524792398 Active Jasmeetihever Sridharglari THREAD CHECKER Active SHAUNA CONTOUR NEXT TEST INVITR STRP check blood sugars 3x/day DX E11.65 05/17 GLUCOSE BLOOD 24267237893 [facility] THREAD CHECKER Active LEVEMIR 100 UNIT/ML SOLN 40u every hs INSULIN DETEMIR 93177574238 No Longer Active Malihever Ziglari THREAD CHECKER Active JANUVIA 100 MG TABS Take one by mouth daily SITAGLIPTIN PHOSPHATE 88307907151 Active Sammi [place] CASE COORDINATOR Active METFORMIN HCL 500 MG [id number] one a day for 5 days then 2 a day, then add one every 5 days to 4 a day METFORMIN HCL 72008781725 Active Maliheh Ziglari THREAD CHECKER Active OXYCODONE HCL 20 MG ORAL TABS every 8 hrs as needed OXYCODONE HCL 97134807741 Active Maliheh Ziglari THREAD CHECKER Active METOPROLOL TARTRATE 25 MG TABS by mouth twice a day METOPROLOL TARTRATE 05008384801 No Longer Active Malihever Ziglari THREAD CHECKER Active ATORVASTATIN CALCIUM 80 MG ORAL TABS Take one by mouth daily ATORVASTATIN CALCIUM 96600369951 [facility] Active ZOCOR 20 MG TABS take at bedtime SIMVASTATIN 91584112342 No Longer [facility] Active FUROSEMIDE 40 MG TABS by mouth twice a day FUROSEMIDE 47943264252 No Longer [facility] THREAD CHECK[facility] Active AMITRIPTYLINE HCL 75 MG TABS Take one by mouth daily AMITRIPTYLINE HCL 20015743664 No Longer Active [facility] Active GABAPENTIN 100 MG CAPS take 2 tabs in the morning, 1 tab at lunch and 2 tabs at bedtime GABAPENTIN 52251837385 No Longer Active [facility] Active JANUMET 50-500 MG TABS by mouth twice a day SITAGLIPTIN- METFORMIN HCL 62035272867 No Longer Active [facility] Active DIABETA 5 MG TABS by mouth twice a day GLYBURIDE 91862461047 No Longer [facility] Active SHAUNA CONTOUR TEST STRP check blood sugars 4x/day GLUCOSE BLOOD 88401828576 No Longer [facility] Active TRAZODONE HCL 50 MG TABS take at bedtime TRAZODONE HCL 46679061972 Active Rossi Mathews LPN Active CYMBALTA 30 MG CPEP Take one by mouth daily DULOXETINE HCL 78640940776 No Longer Active Rossi Mathews LPN Active CYMBALTA 60 MG CPEP Take one by mouth daily DULOXETINE HCL 24805958245 Active Rossi Mathews LPN Active COLACE 100 MG CAPS by mouth twice a day DOCUSATE SODIUM 55942267095 Active Rossi Mathews LPN Active MIRALAX POWD 17gm in h2o daily as directed POLYETHYLENE GLYCOL 3350 86062427955 Active Rossi Mathews LPN Active ACETAMINOPHEN 325 MG TABS 2 every 6 hrs prn ACETAMINOPHEN 31269023954 Active Rossi Mathews LPN Active [facility] MILK OF MAGNESIA 1200 MG/15ML SUSP 30 cc prn constipation MAGNESIUM HYDROXIDE 62992683758 Active Rossi Reid PRICE Active CINNAMON 500 MG TABS by mouth twice a day CINNAMON 37980718341 Active Rossi Reid PRICE Active ZINC TABS Take one by mouth daily ZINC TABS 05651129136 Active Rossi Mathews [place] Active CALCIUM + D 600-200 MG-UNIT TABS Take one by mouth daily CALCIUM CARBONATE-VITAMIN D 94161033764 Active Rossi Reid PRICE Active [facility] FOLIC ACID 400 MCG TABS Take one by mouth daily FOLIC ACID 78379058086 Active Rossi Reid PRICE Active REMERON 15 MG TABS take at bedtime MIRTAZAPINE 74800516291 Active Rossi Reid PRICE Active ADULT ASPIRIN EC LOW STRENGTH 81 MG TBEC Take one by mouth daily ASPIRIN 72565118882 Active Rossi Reid PRICE Active TRAZODONE HCL 100 MG TABS take 1-2 tabs at bedtime as needed TRAZODONE HCL 89853431401 Active Dale Pittman Active ALPRAZOLAM 0.25 MG TABS Take one by mouth 3 times daily, morning, afternoon and evening.] ALPRAZOLAM 34066767631 Active Dale Pittman Active LISINOPRIL 10 MG TABS Take one by mouth daily LISINOPRIL 61845635348 Active Dale Pittman Active CYMBALTA 30 MG CPEP Take one by mouth daily CYMBALTA 30 MG CPEP 622795 DULOXETINE HCL Inactive SHAUNA CONTOUR TEST STRP [...] tabs at bedtime GABAPENTIN 100 MG CAPS 479565 GABAPENTIN Inactive AMITRIPTYLINE HCL 75 MG TABS Take one by mouth daily AMITRIPTYLINE HCL 75 MG TABS 910854 AMITRIPTYLINE HCL Inactive FUROSEMIDE 40 MG TABS by mouth twice a day FUROSEMIDE 40 MG TABS 294371 FUROSEMIDE Inactive ZOCOR 20 MG TABS take at bedtime ZOCOR 20 MG TABS 796044 SIMVASTATIN Inactive METOPROLOL TARTRATE 25 MG TABS by mouth twice a day METOPROLOL TARTRATE 25 MG TABS 332065 METOPROLOL TARTRATE Inactive LEVEMIR 100 UNIT/ML SOLN 40u every hs LEVEMIR 100 UNIT/ML SOLN INSULIN DETEMIR Inactive AMBIEN 5 MG ORAL TABS 2 tabs every hs prn AMBIEN 5 MG ORAL TABS 516601 ZOLPIDEM TARTRATE Inactive TRESIBA FLEXTOUCH 100 UNIT/ML [...] mg/dL Encounters Code Encounter Date Provider Facility CPT-48036 Level 4 Est. Patient 17:01:22 CDT Sammi Olivares [facility] CPT-84261 Level 5 Est. Patient 16:18:07 CDT [facility] CPT-74050 Level 3 Est. Patient 17:20:16 CDT [facility] CPT-99264 Level 5 Est. Patient 09:44:15 CDT [facility] CPT-75962 Level 4 New Patient 07:56:40 CONSULTING DATABASE ADMINISTRATOR Kevin Gramajo MD [facility] Procedures Code Procedure Name Date Entry Date Standard Description CPT-68373 Bladder Scan 17:20:16 CDT CPT-A4351 Female Cath 07:56:40 CONSULTING DATABASE ADMINISTRATOR CPT-80034 Cystoscopy 07:56:40 CONSULTING DATABASE ADMINISTRATOR
--- OUTSIDE RECORDS SUMMARY | 2018-10-10 10:28 | XMS REPORT | Clinical Summary ---
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 INSULIN DEGLUDEC 48223416267 Active Maliheh Ziglari UTILITY AIRCREWMAN Active METFORMIN HCL ER 500 MG ORAL TABLET EXTENDED RELEASE 24 HOUR take 4 a day METFORMIN HCL 22655390895 Active Sammi Olivares APRN Active NOVOLOG FLEXPEN 100 UNIT/ML SUBCUTANEOUS SOLUTION PEN-INJECTOR Take 15units with each meal, add 2u/50 for blood sugars above 150, max dose 40u tid INSULIN ASPART 57196853500 Active Maliheh Ziglari UTILITY AIRCREWMAN Active PEN NEEDLES 31G X 5 MM for a day for insulin injections INSULIN PEN NEEDLE 51330861172 Active Maliheh Ziglari UTILITY AIRCREWMAN Active TRESIBA FLEXTOUCH 100 UNIT/ML SUBCUTANEOUS SOLUTION PEN-INJECTOR Take 60 units once a day at 6pm, add 2u/day after 3 days until morning sugar is below 130 INSULIN DEGLUDEC 07790026258 No Longer Active Sammi Olivares APRN Active AMBIEN 5 MG ORAL TABLET 2 tabs every hs prn ZOLPIDEM TARTRATE 54263160549 No Longer Active Sammi Olivares APRN Active LANCETS 3 Dx E11.65 LANCETS 68885012362 Active Maliheh Ziglari UTILITY AIRCREWMAN Active SHAUNA CONTOUR NEXT TEST IN VITRO STRIP check blood sugars 3x/day DX E11.65 GLUCOSE BLOOD 04966028929 Active Maliheh Ziglari UTILITY AIRCREWMAN Active LEVEMIR 100 UNIT/ML SUBCUTANEOUS SOLUTION 40u every hs INSULIN DETEMIR 64013010095 No Longer Active [facility] Sridharglari [facility] Active JANUVIA 100 MG ORAL TABLET Take one by mouth daily SITAGLIPTIN PHOSPHATE 03039638956 Active Sammi Olivares APRN Active OXYCODONE HCL 20 MG ORAL TABLET every 8 hrs as needed OXYCODONE HCL 77447994973 Active [facility] Sridharglari [facility] Active METOPROLOL TARTRATE 25 MG ORAL TABLET by mouth twice a day METOPROLOL TARTRATE 13151950498 No Longer Active [facility] Sridharglari [facility] Active ATORVASTATIN CALCIUM 80 MG ORAL TABLET Take one by mouth daily ATORVASTATIN CALCIUM 29455843640 Active [facility] Active ZOCOR 20 MG ORAL TABLET take at bedtime SIMVASTATIN 57187780763 No Longer Active [facility] Sridharglari [facility] Active FUROSEMIDE 40 MG ORAL TABLET by mouth twice a day FUROSEMIDE 72050452108 No Longer Active [facility] Active AMITRIPTYLINE HCL 75 MG ORAL TABLET Take one by mouth daily AMITRIPTYLINE HCL 74186306806 No Longer Active [facility] Sridharari [facility] Active GABAPENTIN 100 MG ORAL CAPSULE take 2 tabs in the morning, 1 tab at lunch and 2 tabs at bedtime GABAPENTIN 80876281721 No Longer [facility] Active JANUMET 50-500 MG ORAL TABLET by mouth twice a day SITAGLIPTIN -METFORMIN HCL 39858409805 No Longer Active [facility] Sridharari [facility] Active DIABETA 5 MG ORAL TABLET by mouth twice a day GLYBURIDE 83723836282 No Longer [facility] UTILITY AIRCREWMAN Active SHAUNA CONTOUR TEST IN VITRO STRIP check blood sugars 4x/day 05/17 GLUCOSE BLOOD 25307848132 No Longer Active [facility] Sridharglari UTILITY AIRCREWMAN Active TRAZODONE HCL 50 MG ORAL TABLET take at bedtime TRAZODONE HCL 92687293865 Active Rossi Mathews LPN Active CYMBALTA 30 MG ORAL CAPSULE DELAYED RELEASE PARTICLES Take one by mouth daily DULOXETINE HCL 50695570282 No Longer Active Rossi Mathews LPN Active CYMBALTA 60 MG ORAL CAPSULE DELAYED RELEASE PARTICLES Take one by mouth daily DULOXETINE HCL 71276722462 Active Rossi Mathews LPN Active COLACE 100 MG ORAL CAPSULE by mouth twice a day DOCUSATE SODIUM 58869720793 Active Rossi Mathews LPN Active MIRALAX ORAL POWDER 17gm in h2o daily as directed POLYETHYLENE GLYCOL 3350 18020718358 Active Rossi Mathews LPN Active ACETAMINOPHEN 325 MG ORAL TABLET 2 every 6 hrs prn ACETAMINOPHEN 52098660342 Active Rossi Mathews LPN Active [facility] MILK OF MAGNESIA 1200 MG/15ML ORAL SUSPENSION 30 cc prn constipation 2011 MAGNESIUM HYDROXIDE 88847242800 Active Rossi Mathews LPN Active CINNAMON 500 MG ORAL TABLET by mouth twice a day CINNAMON 41653339775 Active Rossi Mathews LPN Active ZINC TABLET Take one by mouth daily ZINC TABS 76163236331 Active Rossi Mathews LPN Active CALCIUM + D 600-200 MG-UNIT TABS Take one by mouth daily CALCIUM CARBONATE-VITAMIN D 18711569893 Active Rossi Mathews LPN Active [facility] FOLIC ACID 400 MCG ORAL TABLET Take one by mouth daily FOLIC ACID 32247823920 Active Rossi Mathews LPN Active REMERON 15 MG ORAL TABLET take at bedtime MIRTAZAPINE 03808705161 Active Rossi Mathews LPN Active ADULT ASPIRIN EC LOW STRENGTH 81 MG ORAL TABLET DELAYED RELEASE Take one by mouth daily ASPIRIN 41815211714 Active Rossi Mathews LPN Active TRAZODONE HCL 100 MG ORAL TABLET take 1-2 tabs at bedtime as needed TRAZODONE HCL 75412448682 Active Dale Brinkmeyer Active ALPRAZOLAM 0.25 MG ORAL TABLET Take one by mouth 3 times daily, morning, afternoon and evening.] ALPRAZOLAM 60068323848 Active Dale Brinkmeyer Active LISINOPRIL 10 MG ORAL TABLET Take one by mouth daily LISINOPRIL 21874266205 Active Dale Brinkmeyer Active CYMBALTA 30 MG ORAL CAPSULE DELAYED RELEASE PARTICLES Take one by mouth daily CYMBALTA 30 MG ORAL CAPSULE DELAYED RELEASE PARTICLES 398052 DULOXETINE HCL Inactive SHAUNA CONTOUR TEST IN VITRO STRIP check blood sugars 4x/day 05/17 SHAUNA CONTOUR TEST IN VITRO STRIP GLUCOSE BLOOD Inactive DIABETA 5 MG ORAL TABLET by mouth twice a day DIABETA 5 MG ORAL TABLET 679301 GLYBURIDE Inactive JANUMET 50-500 MG ORAL TABLET by mouth twice a day JANUMET 50- 500 MG ORAL TABLET SITAGLIPTIN-METFORMIN HCL Inactive GABAPENTIN 100 MG ORAL CAPSULE take 2 tabs in the morning, 1 tab at lunch and 2 tabs at bedtime GABAPENTIN 100 MG ORAL CAPSULE 502103 GABAPENTIN Inactive AMITRIPTYLINE HCL 75 MG ORAL TABLET Take one by mouth daily AMITRIPTYLINE HCL 75 MG ORAL TABLET 021745 AMITRIPTYLINE HCL Inactive FUROSEMIDE 40 MG ORAL TABLET by mouth twice a day FUROSEMIDE 40 MG ORAL TABLET 587666 FUROSEMIDE Inactive ZOCOR 20 MG ORAL TABLET take at bedtime ZOCOR 20 MG ORAL TABLET 705262 SIMVASTATIN Inactive METOPROLOL TARTRATE 25 MG ORAL TABLET by mouth twice a day METOPROLOL TARTRATE 25 MG ORAL TABLET 904188 METOPROLOL TARTRATE Inactive LEVEMIR 100 UNIT/ML SUBCUTANEOUS SOLUTION 40u every hs LEVEMIR 100 UNIT/ML SUBCUTANEOUS SOLUTION INSULIN DETEMIR Inactive AMBIEN 5 MG ORAL TABLET 2 tabs every hs prn AMBIEN 5 MG ORAL TABLET 772484 ZOLPIDEM TARTRATE Inactive TRESIBA FLEXTOUCH 100 UNIT/ML SUBCUTANEOUS SOLUTION PEN-INJECTOR Take 60 units once a day at 6pm, add 2u/day after 3 days until morning sugar is below 130 TRESIBA FLEXTOUCH 100 UNIT/ML SUBCUTANEOUS SOLUTION PEN-INJECTOR INSULIN DEGLUDEC Inactive Vital Signs Date Name Value Unit Range Description weight E&M 8.3 [lb_av] Weight Measured blood [...] mg/dL Encounters Code Encounter Date Provider Facility CPT-76723 Level 3 Est. Patient 14:55:50 PRODUCTION CONTROL SCHEDULER Sammi [facility] CPT-71943 Level 3 Est. Patient 10:01:00 CDT [facility] CPT-39156 Level 4 Est. Patient 10:17:45 CDT [facility] CPT-83323 Level 4 Est. Patient 17:01:22 CDT Sammi [facility] CPT-77393 Level 5 Est. Patient 16:18:07 CDT [facility] CPT-98338 Level 3 Est. Patient 17:20:16 CDT [facility] CPT-49987 Level 5 Est. Patient 09:44:[address] [facility] CPT-05479 Level 4 New Patient 07:56:40 PRODUCTION CONTROL SCHEDULER Kevin Gramajo MD [facility] Procedures Code Procedure Name Date Entry Date Standard Description CPT-90933 First Vx - Ix admin via ID IM or jet injects without counseling by physician 14:59:49 PRODUCTION CONTROL SCHEDULER CPT-51815 Fluzone Quadrivalent Intramuscular Suspension 0.5 ML 14: 59:49 PRODUCTION CONTROL SCHEDULER CPT-99461 Bladder Scan 17:20:16 CDT CPT-A4351 Female Cath 07:56:40 PRODUCTION CONTROL SCHEDULER CPT-43686 Cystoscopy 07:56:40 PRODUCTION CONTROL SCHEDULER
--- OUTSIDE RECORDS SUMMARY | 2018-10-10 10:29 | XMS REPORT | Clinical Summary ---
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 INSULIN DEGLUDEC 79960526812 Active Maliheh Ziglari CONTROLLER MECHANIC Active METFORMIN HCL ER 500 MG ORAL TABLET EXTENDED RELEASE 24 HOUR take 4 a day METFORMIN HCL 09989513464 Active Sammi Olivares APRN Active NOVOLOG FLEXPEN 100 UNIT/ML SUBCUTANEOUS SOLUTION PEN-INJECTOR Take 15units with each meal, add 2u/50 for blood sugars above 150, max dose 40u tid INSULIN ASPART 31886407006 Active Maliheh Ziglari CONTROLLER MECHANIC Active PEN NEEDLES 31G X 5 MM for a day for insulin injections INSULIN PEN NEEDLE 49303778427 Active Maliheh Ziglari CONTROLLER MECHANIC Active TRESIBA FLEXTOUCH 100 UNIT/ML SUBCUTANEOUS SOLUTION PEN-INJECTOR Take 60 units once a day at 6pm, add 2u/day after 3 days until morning sugar is below 130 INSULIN DEGLUDEC 62228595157 No Longer Active Sammi Olivares APRN Active AMBIEN 5 MG ORAL TABLET 2 tabs every hs prn ZOLPIDEM TARTRATE 05717963551 No Longer Active Sammi Olivares APRN Active LANCETS 3 Dx E11.65 LANCETS 29576283219 Active Maliheh Ziglari CONTROLLER MECHANIC Active SHAUNA CONTOUR NEXT TEST IN VITRO STRIP check blood sugars 3x/day DX E11.65 GLUCOSE BLOOD 66801840853 Active Maliheh Ziglari CONTROLLER MECHANIC Active LEVEMIR 100 UNIT/ML SUBCUTANEOUS SOLUTION 40u every hs INSULIN DETEMIR 98674394371 No Longer Active [facility] Sridharglari [facility] Active JANUVIA 100 MG ORAL TABLET Take one by mouth daily SITAGLIPTIN PHOSPHATE 89374102425 Active Sammi Olivares APRN Active OXYCODONE HCL 20 MG ORAL TABLET every 8 hrs as needed OXYCODONE HCL 73216371258 Active [facility] Sridharglari [facility] Active METOPROLOL TARTRATE 25 MG ORAL TABLET by mouth twice a day METOPROLOL TARTRATE 80811200212 No Longer Active [facility] Sridharglari [facility] Active ATORVASTATIN CALCIUM 80 MG ORAL TABLET Take one by mouth daily ATORVASTATIN CALCIUM 29628038259 [facility] Active ZOCOR 20 MG ORAL TABLET take at bedtime SIMVASTATIN 87356594244 No Longer Active [facility] Sridharglari [facility] Active FUROSEMIDE 40 MG ORAL TABLET by mouth twice a day FUROSEMIDE 49952056295 No Longer Active [facility] Active AMITRIPTYLINE HCL 75 MG ORAL TABLET Take one by mouth daily AMITRIPTYLINE HCL 62188280429 No Longer Active [facility] Sridharari [facility] Active GABAPENTIN 100 MG ORAL CAPSULE take 2 tabs in the morning, 1 tab at lunch and 2 tabs at bedtime GABAPENTIN 50402910482 No Longer [facility] Active JANUMET 50-500 MG ORAL TABLET by mouth twice a day SITAGLIPTIN -METFORMIN HCL 84230829682 No Longer Active [facility] Sridharari [facility] Active DIABETA 5 MG ORAL TABLET by mouth twice a day GLYBURIDE 26300295905 No Longer [facility] CONTROLLER MECHANIC Active SHAUNA CONTOUR TEST IN VITRO STRIP check blood sugars 4x/day 05/17 GLUCOSE BLOOD 85127575098 No Longer Active [facility] Sridharglari CONTROLLER MECHANIC Active TRAZODONE HCL 50 MG ORAL TABLET take at bedtime TRAZODONE HCL 77641459445 Active Rossi Mathews LPN Active CYMBALTA 30 MG ORAL CAPSULE DELAYED RELEASE PARTICLES Take one by mouth daily DULOXETINE HCL 79424326441 No Longer Active Rossi Mathews LPN Active CYMBALTA 60 MG ORAL CAPSULE DELAYED RELEASE PARTICLES Take one by mouth daily DULOXETINE HCL 70927262419 Active Rossi Mathews LPN Active COLACE 100 MG ORAL CAPSULE by mouth twice a day DOCUSATE SODIUM 59983583251 Active Rossi Mathews LPN Active MIRALAX ORAL POWDER 17gm in h2o daily as directed POLYETHYLENE GLYCOL 3350 22418026901 Active Rossi Mathews LPN Active ACETAMINOPHEN 325 MG ORAL TABLET 2 every 6 hrs prn ACETAMINOPHEN 30424025855 Active Rossi Mathews LPN Active [facility] MILK OF MAGNESIA 1200 MG/15ML ORAL SUSPENSION 30 cc prn constipation 2011 MAGNESIUM HYDROXIDE 74819119708 Active Rossi Mathews LPN Active CINNAMON 500 MG ORAL TABLET by mouth twice a day CINNAMON 11375807671 Active Rossi Mathews LPN Active ZINC TABLET Take one by mouth daily ZINC TABS 95238996455 Active Rossi Mathews LPN Active CALCIUM + D 600-200 MG-UNIT TABS Take one by mouth daily CALCIUM CARBONATE-VITAMIN D 71605407264 Active Rossi Mathews LPN Active [facility] FOLIC ACID 400 MCG ORAL TABLET Take one by mouth daily FOLIC ACID 44040279973 Active Rossi Mathews LPN Active REMERON 15 MG ORAL TABLET take at bedtime MIRTAZAPINE 20518128561 Active Rossi Mathews LPN Active ADULT ASPIRIN EC LOW STRENGTH 81 MG ORAL TABLET DELAYED RELEASE Take one by mouth daily ASPIRIN 69025562665 Active Rossi Mathews LPN Active TRAZODONE HCL 100 MG ORAL TABLET take 1-2 tabs at bedtime as needed TRAZODONE HCL 91912644897 Active Dale Brinkmeyer Active ALPRAZOLAM 0.25 MG ORAL TABLET Take one by mouth 3 times daily, morning, afternoon and evening.] ALPRAZOLAM 27933275117 Active Dale Brinkmeyer Active LISINOPRIL 10 MG ORAL TABLET Take one by mouth daily LISINOPRIL 08147123217 Active Dale Brinkmeyer Active CYMBALTA 30 MG ORAL CAPSULE DELAYED RELEASE PARTICLES Take one by mouth daily CYMBALTA 30 MG ORAL CAPSULE DELAYED RELEASE PARTICLES 412459 DULOXETINE HCL Inactive SHAUNA CONTOUR TEST IN VITRO STRIP check blood sugars 4x/day 05/17 SHAUNA CONTOUR TEST IN VITRO STRIP GLUCOSE BLOOD Inactive DIABETA 5 MG ORAL TABLET by mouth twice a day DIABETA 5 MG ORAL TABLET 915056 GLYBURIDE Inactive JANUMET 50-500 MG ORAL TABLET by mouth twice a day JANUMET 50- 500 MG ORAL TABLET SITAGLIPTIN-METFORMIN HCL Inactive GABAPENTIN 100 MG ORAL CAPSULE take 2 tabs in the morning, 1 tab at lunch and 2 tabs at bedtime GABAPENTIN 100 MG ORAL CAPSULE 461969 GABAPENTIN Inactive AMITRIPTYLINE HCL 75 MG ORAL TABLET Take one by mouth daily AMITRIPTYLINE HCL 75 MG ORAL TABLET 122299 AMITRIPTYLINE HCL Inactive FUROSEMIDE 40 MG ORAL TABLET by mouth twice a day FUROSEMIDE 40 MG ORAL TABLET 632747 FUROSEMIDE Inactive ZOCOR 20 MG ORAL TABLET take at bedtime ZOCOR 20 MG ORAL TABLET 304378 SIMVASTATIN Inactive METOPROLOL TARTRATE 25 MG ORAL TABLET by mouth twice a day METOPROLOL TARTRATE 25 MG ORAL TABLET 594677 METOPROLOL TARTRATE Inactive LEVEMIR 100 UNIT/ML SUBCUTANEOUS SOLUTION 40u every hs LEVEMIR 100 UNIT/ML SUBCUTANEOUS SOLUTION INSULIN DETEMIR Inactive AMBIEN 5 MG ORAL TABLET 2 tabs every hs prn AMBIEN 5 MG ORAL TABLET 469501 ZOLPIDEM TARTRATE Inactive TRESIBA FLEXTOUCH 100 UNIT/ML [...] mg/dL Encounters Code Encounter Date Provider Facility CPT-83333 Level 3 Est. Patient 14:55:50 FUR TINTER [facility] CPT-10304 Level 3 Est. Patient 10:01:00 CDT [facility] CPT-02115 Level 4 Est. Patient 10:17:45 CDT [facility] CPT-86895 Level 4 Est. Patient 17:01:22 CDT [facility] CPT-15538 Level 5 Est. Patient 16:18:07 CDT [facility] CPT-85118 Level 3 Est. Patient 17:20:16 CDT [facility] CPT-18018 Level 5 Est. Patient 09:44:15 CDT Rena Regalado JARETH [facility] CPT-65225 Level 4 New Patient 07:56:40 FUR TINTER Kevin Gramajo MD [facility] Procedures Code Procedure Name Date Entry Date Standard Description CPT-18129 First Vx - Ix admin via ID IM or jet injects without counseling by physician 14:59:49 FUR TINTER CPT-03704 Fluzone Quadrivalent Intramuscular Suspension 0.5 ML 14: 59:49 FUR TINTER CPT-16788 Bladder Scan 17:20:16 CDT CPT-A4351 Female Cath 07:56:40 FUR TINTER CPT-81927 Cystoscopy 07:56:40 FUR TINTER
--- OUTSIDE RECORDS SUMMARY | 2018-10-10 10:30 | XMS REPORT | Clinical Summary ---
Author Author Admin, CARMELO Grajeda [facility] Address Unknown Phone Unavailable Allergies, Adverse Reactions, [...] for blood sugar above 150 INSULIN ASPART 84462376215 Active Sammi Olivares SENIOR J2EE DEVELOPER Active TRESIBA FLEXTOUCH 100 UNIT/ML SC SOPN Take 60 units once a day at 6pm, add 2u/ day after 3 days until morning sugar is below 130 INSULIN DEGLUDEC 89069177228 No Longer Active Sammi Webster SENIOR J2EE DEVELOPER Active AMBIEN 5 MG ORAL TABS 2 tabs every hs prn ZOLPIDEM TARTRATE 22148960649 No Longer Active Sammi Elise SENIOR J2EE DEVELOPER Active LANCETS MISC 3 Dx E11.65 LANCETS 62507720539 Active Rena 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 SHAUNA CONTOUR NEXT TEST INVITR STRP check blood sugars 3x/day DX E11.65 05/17 GLUCOSE BLOOD 52168975172 Active Rena Wallerglari 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 LEVEMIR 100 UNIT/ML SOLN 40u every hs INSULIN DETEMIR 56834604974 No Longer Active [facility] Ziglari 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 JANUVIA 100 MG TABS Take one by mouth daily SITAGLIPTIN PHOSPHATE 57085408494 Active Sammi Olivares SENIOR J2EE DEVELOPER Active METFORMIN HCL 500 MG [id number] one a day for 5 days then 2 a day, then add one every 5 days to 4 a day METFORMIN HCL 35747859178 Active Maliheh Ziglari 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 OXYCODONE HCL 20 MG ORAL TABS every 8 hrs as needed OXYCODONE HCL 23420274871 Active Rena Ziglari 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 METOPROLOL TARTRATE 25 MG TABS by mouth twice a day METOPROLOL TARTRATE 97220781957 No Longer Active Maliheh Ziglari 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 ATORVASTATIN CALCIUM 80 MG ORAL TABS Take one by mouth daily ATORVASTATIN CALCIUM 16564617045 Active [facility] Ziglari 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 ZOCOR 20 MG TABS take at bedtime SIMVASTATIN 99306275432 No Longer Active Maliheh Ziglari 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 FUROSEMIDE 40 MG TABS by mouth twice a day FUROSEMIDE 82281988330 No Longer Active [facility] Ohioglari 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 AMITRIPTYLINE HCL 75 MG TABS Take one by mouth daily AMITRIPTYLINE HCL 49075682793 No Longer Active [facility] Ohioglari 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 GABAPENTIN 100 MG CAPS take 2 tabs in the morning, 1 tab at lunch and 2 tabs at bedtime GABAPENTIN 88584209466 No Longer Active [facility] Active JANUMET 50-500 MG TABS by mouth twice a day SITAGLIPTIN- METFORMIN HCL 65839294704 No Longer Active [facility] Active DIABETA 5 MG TABS by mouth twice a day GLYBURIDE 76992751758 No Longer Active [facility] Ohioglari 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 SHAUNA CONTOUR TEST STRP check blood sugars 4x/day GLUCOSE BLOOD 22091392385 No Longer Active [facility]ioglari [facility] Active TRAZODONE HCL 50 MG TABS take at bedtime TRAZODONE HCL 99117760297 Active Rossi Mathews LPN Active CYMBALTA 30 MG CPEP Take one by mouth daily DULOXETINE HCL 80724992912 No Longer Active Rossi Mathews LPN Active CYMBALTA 60 MG CPEP Take one by mouth daily DULOXETINE HCL 07932299318 Active Rossi Mathews LPN Active COLACE 100 MG CAPS by mouth twice a day DOCUSATE SODIUM 46275916622 Active Rossi Mathews LPN Active MIRALAX POWD 17gm in h2o daily as directed POLYETHYLENE GLYCOL 3350 04537608148 Active Rossi Mathews LPN Active ACETAMINOPHEN 325 MG TABS 2 every 6 hrs prn ACETAMINOPHEN 20196359977 Active Rossi Mathews LPN Active [facility] MILK OF MAGNESIA 1200 MG/15ML SUSP 30 cc prn constipation MAGNESIUM HYDROXIDE 58845822075 Active Rossi Mathews LPN Active CINNAMON 500 MG TABS by mouth twice a day CINNAMON 04802407677 Active Rossi Reid PRICE Active ZINC TABS Take one by mouth daily ZINC TABS 83134562304 Active Rossi Reid PRICE Active CALCIUM + D 600-200 MG-UNIT TABS Take one by mouth daily CALCIUM CARBONATE-VITAMIN D 52494541367 Active Rossi Reid PRICE Active [facility] FOLIC ACID 400 MCG TABS Take one by mouth daily FOLIC ACID 45510441501 Active Rossi Reid PRICE Active REMERON 15 MG TABS take at bedtime MIRTAZAPINE 60515662998 Active Rossi Reid PRICE Active ADULT ASPIRIN EC LOW STRENGTH 81 MG TBEC Take one by mouth daily ASPIRIN 27243098271 Active Rossi Reid PRICE Active TRAZODONE HCL 100 MG TABS take 1-2 tabs at bedtime as needed TRAZODONE HCL 22078090166 Active Dale Pittman Active ALPRAZOLAM 0.25 MG TABS Take one by mouth 3 times daily, morning, afternoon and evening.] ALPRAZOLAM 11658582049 Active Dale Pittman Active LISINOPRIL 10 MG TABS Take one by mouth daily LISINOPRIL 63504401336 Active Dale Pittman Active CYMBALTA 30 MG CPEP Take one by mouth daily CYMBALTA 30 MG CPEP 319422 DULOXETINE HCL Inactive SHAUNA CONTOUR TEST STRP [...] tabs at bedtime GABAPENTIN 100 MG CAPS 197844 GABAPENTIN Inactive AMITRIPTYLINE HCL 75 MG TABS Take one by mouth daily AMITRIPTYLINE HCL 75 MG TABS 917505 AMITRIPTYLINE HCL Inactive FUROSEMIDE 40 MG TABS by mouth twice a day FUROSEMIDE 40 MG TABS 201363 FUROSEMIDE Inactive ZOCOR 20 MG TABS take at bedtime ZOCOR 20 MG TABS 210052 SIMVASTATIN Inactive METOPROLOL TARTRATE 25 MG TABS by mouth twice a day METOPROLOL TARTRATE 25 MG TABS 267843 METOPROLOL TARTRATE Inactive LEVEMIR 100 UNIT/ML SOLN 40u every hs LEVEMIR 100 UNIT/ML SOLN INSULIN DETEMIR Inactive AMBIEN 5 MG ORAL TABS 2 tabs every hs prn AMBIEN 5 MG ORAL TABS 857842 ZOLPIDEM TARTRATE Inactive TRESIBA FLEXTOUCH 100 UNIT/ML [...] mg/dL Encounters Code Encounter Date Provider Facility CPT-97832 Level 4 Est. Patient 17:01:22 CDT Sammi Olivares [facility] CPT-63662 Level 5 Est. Patient 16:18:07 CDT [facility] CPT-41217 Level 3 Est. Patient 17:20:16 CDT [facility] CPT-87559 Level 5 Est. Patient 09:44:15 CDT [facility] CPT-20501 Level 4 New Patient 07:56:40 DAY LIGHT RELIEF OPERATOR Kevin Gramajo MD [facility] Procedures Code Procedure Name Date Entry Date Standard Description CPT-68188 Bladder Scan 17:20:16 CDT CPT-A4351 Female Cath 07:56:40 DAY LIGHT RELIEF OPERATOR CPT-83906 Cystoscopy 07:56:40 DAY LIGHT RELIEF OPERATOR
--- OUTSIDE RECORDS SUMMARY | 2018-10-10 10:30 | XMS REPORT | Clinical Summary ---
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 INSULIN DEGLUDEC 25918091204 Active Maliheh Ziglari HEADER BOSS Active METFORMIN HCL ER 500 MG ORAL TABLET EXTENDED RELEASE 24 HOUR take 4 a day METFORMIN HCL 94185851215 Active Sammi Olivares APRN Active NOVOLOG FLEXPEN 100 UNIT/ML SUBCUTANEOUS SOLUTION PEN-INJECTOR Take 15units with each meal, add 2u/50 for blood sugars above 150, max dose 40u tid INSULIN ASPART 58793415140 Active Maliheh Ziglari HEADER BOSS Active PEN NEEDLES 31G X 5 MM for a day for insulin injections INSULIN PEN NEEDLE 49665075023 Active Maliheh Ziglari HEADER BOSS Active TRESIBA FLEXTOUCH 100 UNIT/ML SUBCUTANEOUS SOLUTION PEN-INJECTOR Take 60 units once a day at 6pm, add 2u/day after 3 days until morning sugar is below 130 INSULIN DEGLUDEC 65745910213 No Longer Active Sammi Olivares APRN Active AMBIEN 5 MG ORAL TABLET 2 tabs every hs prn ZOLPIDEM TARTRATE 74802729704 No Longer Active Sammi Olivares APRN Active LANCETS 3 Dx E11.65 LANCETS 63635523465 Active Maliheh Ziglari HEADER BOSS Active SHAUNA CONTOUR NEXT TEST IN VITRO STRIP check blood sugars 3x/day DX E11.65 GLUCOSE BLOOD 78848553320 Active Maliheh Ziglari HEADER BOSS Active LEVEMIR 100 UNIT/ML SUBCUTANEOUS SOLUTION 40u every hs INSULIN DETEMIR 38818312528 No Longer Active [facility] Sridharglari [facility] Active JANUVIA 100 MG ORAL TABLET Take one by mouth daily SITAGLIPTIN PHOSPHATE 64621277588 Active Sammi Olivares APRN Active OXYCODONE HCL 20 MG ORAL TABLET every 8 hrs as needed OXYCODONE HCL 48767610177 Active [facility] Sridharglari [facility] Active METOPROLOL TARTRATE 25 MG ORAL TABLET by mouth twice a day METOPROLOL TARTRATE 50481810740 No Longer Active [facility] Sridharglari [facility] Active ATORVASTATIN CALCIUM 80 MG ORAL TABLET Take one by mouth daily ATORVASTATIN CALCIUM 37222121672 Active [facility] Active ZOCOR 20 MG ORAL TABLET take at bedtime SIMVASTATIN 07813533300 No Longer Active [facility] Sridharglari [facility] Active FUROSEMIDE 40 MG ORAL TABLET by mouth twice a day FUROSEMIDE 24568852823 No Longer Active [facility] Active AMITRIPTYLINE HCL 75 MG ORAL TABLET Take one by mouth daily AMITRIPTYLINE HCL 70535518812 No Longer Active [facility] Sridharari [facility] Active GABAPENTIN 100 MG ORAL CAPSULE take 2 tabs in the morning, 1 tab at lunch and 2 tabs at bedtime GABAPENTIN 46363558508 No Longer [facility] Active JANUMET 50-500 MG ORAL TABLET by mouth twice a day SITAGLIPTIN -METFORMIN HCL 46209651389 No Longer Active [facility] Sridharari [facility] Active DIABETA 5 MG ORAL TABLET by mouth twice a day GLYBURIDE 03662329150 No Longer [facility] BOSS Active SHAUNA CONTOUR TEST IN VITRO STRIP check blood sugars 4x/day 05/17 GLUCOSE BLOOD 16870845859 No Longer Active [facility] Sridharglari HEADER BOSS Active TRAZODONE HCL 50 MG ORAL TABLET take at bedtime TRAZODONE HCL 62615474189 Active Rossi Mathews LPN Active CYMBALTA 30 MG ORAL CAPSULE DELAYED RELEASE PARTICLES Take one by mouth daily DULOXETINE HCL 52901572765 No Longer Active Rossi Mathews LPN Active CYMBALTA 60 MG ORAL CAPSULE DELAYED RELEASE PARTICLES Take one by mouth daily DULOXETINE HCL 26860457283 Active Rossi Mathews LPN Active COLACE 100 MG ORAL CAPSULE by mouth twice a day DOCUSATE SODIUM 13499346387 Active Rossi Mathews LPN Active MIRALAX ORAL POWDER 17gm in h2o daily as directed POLYETHYLENE GLYCOL 3350 59624236539 Active Rossi Mathews LPN Active ACETAMINOPHEN 325 MG ORAL TABLET 2 every 6 hrs prn ACETAMINOPHEN 95499473987 Active Rossi Mathews LPN Active [facility] MILK OF MAGNESIA 1200 MG/15ML ORAL SUSPENSION 30 cc prn constipation 2011 MAGNESIUM HYDROXIDE 07110323951 Active Rossi Mathews LPN Active CINNAMON 500 MG ORAL TABLET by mouth twice a day CINNAMON 55488388833 Active Rossi Mathews LPN Active ZINC TABLET Take one by mouth daily ZINC TABS 95693118003 Active Rossi Mathews LPN Active CALCIUM + D 600-200 MG-UNIT TABS Take one by mouth daily CALCIUM CARBONATE-VITAMIN D 62686074910 Active Rossi Mathews LPN Active [facility] FOLIC ACID 400 MCG ORAL TABLET Take one by mouth daily FOLIC ACID 40159091874 Active Rossi Mathews LPN Active REMERON 15 MG ORAL TABLET take at bedtime MIRTAZAPINE 46815254228 Active Rossi Mathews LPN Active ADULT ASPIRIN EC LOW STRENGTH 81 MG ORAL TABLET DELAYED RELEASE Take one by mouth daily ASPIRIN 11444250991 Active Rossi Mathews LPN Active TRAZODONE HCL 100 MG ORAL TABLET take 1-2 tabs at bedtime as needed TRAZODONE HCL 35489070801 Active Dale Brinkmeyer Active ALPRAZOLAM 0.25 MG ORAL TABLET Take one by mouth 3 times daily, morning, afternoon and evening.] ALPRAZOLAM 66110829573 Active Adle Brinkmeyer Active LISINOPRIL 10 MG ORAL TABLET Take one by mouth daily LISINOPRIL 80648714429 Active Dale Brinkmeyer Active CYMBALTA 30 MG ORAL CAPSULE DELAYED RELEASE PARTICLES Take one by mouth daily CYMBALTA 30 MG ORAL CAPSULE DELAYED RELEASE PARTICLES 251311 DULOXETINE HCL Inactive SHAUNA CONTOUR TEST IN VITRO STRIP check blood sugars 4x/day 05/17 SHAUNA CONTOUR TEST IN VITRO STRIP GLUCOSE BLOOD Inactive DIABETA 5 MG ORAL TABLET by mouth twice a day DIABETA 5 MG ORAL TABLET 250454 GLYBURIDE Inactive JANUMET 50-500 MG ORAL TABLET by mouth twice a day JANUMET 50- 500 MG ORAL TABLET SITAGLIPTIN-METFORMIN HCL Inactive GABAPENTIN 100 MG ORAL CAPSULE take 2 tabs in the morning, 1 tab at lunch and 2 tabs at bedtime GABAPENTIN 100 MG ORAL CAPSULE 455683 GABAPENTIN Inactive AMITRIPTYLINE HCL 75 MG ORAL TABLET Take one by mouth daily AMITRIPTYLINE HCL 75 MG ORAL TABLET 918251 AMITRIPTYLINE HCL Inactive FUROSEMIDE 40 MG ORAL TABLET by mouth twice a day FUROSEMIDE 40 MG ORAL TABLET 314088 FUROSEMIDE Inactive ZOCOR 20 MG ORAL TABLET take at bedtime ZOCOR 20 MG ORAL TABLET 694751 SIMVASTATIN Inactive METOPROLOL TARTRATE 25 MG ORAL TABLET by mouth twice a day METOPROLOL TARTRATE 25 MG ORAL TABLET 053957 METOPROLOL TARTRATE Inactive LEVEMIR 100 UNIT/ML SUBCUTANEOUS SOLUTION 40u every hs LEVEMIR 100 UNIT/ML SUBCUTANEOUS SOLUTION INSULIN DETEMIR Inactive AMBIEN 5 MG ORAL TABLET 2 tabs every hs prn AMBIEN 5 MG ORAL TABLET 423513 ZOLPIDEM TARTRATE Inactive TRESIBA FLEXTOUCH 100 UNIT/ML [...] mg/dL Encounters Code Encounter Date Provider Facility CPT-98866 Level 3 Est. Patient 14:55:50 RN MDS [employer] [facility] CPT-89722 Level 3 Est. Patient 10:01:00 CDT [facility] CPT-77395 Level 4 Est. Patient 10:17:45 CDT [facility] CPT-41093 Level 4 Est. Patient 17:01:22 CDT [employer] [facility] CPT-41387 Level 5 Est. Patient 16:18:07 CDT [facility] CPT-46658 Level 3 Est. Patient 17:20:16 CDT [facility] CPT-83177 Level 5 Est. Patient 09:44:15 CDT Rena Regalado JARETH [facility] CPT-62115 Level 4 New Patient 07:56:40 RN MDS Kevin Gramajo MD [facility] Procedures Code Procedure Name Date Entry Date Standard Description CPT-79110 First Vx - Ix admin via ID IM or jet injects without counseling by physician 14:59:49 RN MDS CPT-07808 Fluzone Quadrivalent Intramuscular Suspension 0.5 ML 14: 59:49 RN MDS CPT-73988 Bladder Scan 17:20:16 CDT CPT-A4351 Female Cath 07:56:40 RN MDS CPT-95917 Cystoscopy 07:56:40 RN MDS
--- OUTSIDE RECORDS SUMMARY | 2018-10-10 10:32 | XMS REPORT | Clinical Summary ---
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 Rena TEMPLETON Diabetes mellitus with neurological manifestations, type II or unspecified type, not stated as uncontrolled Medication List Medication Instructions Start Date Stop Date Generic Name NDC Status Provider Patient Instruction METFORMIN HCL 500 MG [id number] take 4 a day METFORMIN HCL 69323346571 Active Maliheh Ziglari HEAD NECK SURGEON Active NOVOLOG FLEXPEN 100 UNIT/ML SOPN Take 15units with each meal, add 2u/50 for blood sugars above 150, max dose 40u tid INSULIN ASPART 96077844714 Active Jasmeetiheh Ziglari HEAD NECK SURGEON Active PEN NEEDLES 31G X 5 MM MISC for a day for insulin injections INSULIN PEN NEEDLE 89744984490 Active Maliheh Ziglari HEAD NECK SURGEON Active TRESIBA FLEXTOUCH 200 UNIT/ML SC SOPN Take 45 daily. INSULIN DEGLUDEC 45236061107 Active Maliheh Ziglari HEAD NECK SURGEON Active TRESIBA FLEXTOUCH 100 UNIT/ML SC SOPN Take 60 units once a day at 6pm, add 2u/ day after 3 days until morning sugar is below 130 INSULIN DEGLUDEC 92325161464 No Longer Active Sammi Olivares APRN Active AMBIEN 5 MG ORAL TABS 2 tabs every hs prn ZOLPIDEM TARTRATE 79606997578 No Longer Active Sammi Olivares APRN Active LANCETS MISC 3 Dx E11.65 LANCETS 14211574468 Active Maliheh Ziglari HEAD NECK SURGEON Active SHAUNA CONTOUR NEXT TEST INVITR STRP check blood sugars 3x/day DX E11.65 05/17 GLUCOSE BLOOD 03408689736 Active Rena Ziglari HEAD NECK SURGEON Active LEVEMIR 100 UNIT/ML SOLN 40u every hs INSULIN DETEMIR 67230585724 No Longer Active Maliheh Ziglari HEAD NECK SURGEON Active JANUVIA 100 MG TABS Take one by mouth daily SITAGLIPTIN PHOSPHATE 88934003597 Active Sammi Crump RADIO FREQUENCY TECHNICIAN Active OXYCODONE HCL 20 MG ORAL TABS every 8 hrs as needed OXYCODONE HCL 03179629016 Active Malgrey Ziglari HEAD NECK SURGEON Active METOPROLOL TARTRATE 25 MG TABS by mouth twice a day METOPROLOL TARTRATE 10742155962 No Longer Active Maliheh Ziglari HEAD NECK SURGEON Active ATORVASTATIN CALCIUM 80 MG ORAL TABS Take one by mouth daily ATORVASTATIN CALCIUM 14904471978 [facility]ECK [facility] Active ZOCOR 20 MG TABS take at bedtime SIMVASTATIN 78254114586 No Longer [facility] NECK SURGEON Active FUROSEMIDE 40 MG TABS by mouth twice a day FUROSEMIDE 96219548435 No Longer [facility] HEAD NECK SURGEON Active AMITRIPTYLINE HCL 75 MG TABS Take one by mouth daily AMITRIPTYLINE HCL 72482806471 No Longer [facility] Active GABAPENTIN 100 MG CAPS take 2 tabs in the morning, 1 tab at lunch and 2 tabs at bedtime GABAPENTIN 50408165492 No Longer [facility] HEAD NECK SURGEON Active JANUMET 50-500 MG TABS by mouth twice a day SITAGLIPTIN- METFORMIN HCL 69628042363 No Longer Active [facility] Active DIABETA 5 MG TABS by mouth twice a day GLYBURIDE 92764084520 No Longer [facility] HEAD NECK SURGEON Active SHAUNA CONTOUR TEST STRP check blood sugars 4x/day GLUCOSE BLOOD 19168594758 No Longer [facility] HEAD NECK SURGEON Active TRAZODONE HCL 50 MG TABS take at bedtime TRAZODONE HCL 41870299421 Active Rossi Mathews LPN Active CYMBALTA 30 MG CPEP Take one by mouth daily DULOXETINE HCL 79619524929 No Longer Active Rossi Mathews LPN Active CYMBALTA 60 MG CPEP Take one by mouth daily DULOXETINE HCL 77276301949 Active Rossi Mathews LPN Active COLACE 100 MG CAPS by mouth twice a day DOCUSATE SODIUM 31646633773 Active Rossi Mathews LPN Active MIRALAX POWD 17gm in h2o daily as directed POLYETHYLENE GLYCOL 3350 73398361536 Active Rossi Mathews LPN Active ACETAMINOPHEN 325 MG TABS 2 every 6 hrs prn ACETAMINOPHEN 74744436150 Active Rossi Reid PRICE Active [facility] MILK OF MAGNESIA 1200 MG/15ML SUSP 30 cc prn constipation MAGNESIUM HYDROXIDE 14350347864 Active Rossi Mathews LPN Active CINNAMON 500 MG TABS by mouth twice a day CINNAMON 09543812272 Active Rossi Mathews LPN Active ZINC TABS Take one by mouth daily ZINC TABS 96452309611 Active Rossi Mathews LPN Active CALCIUM + D 600-200 MG-UNIT TABS Take one by mouth daily CALCIUM CARBONATE-VITAMIN D 69843406087 Active Rossi Mathews LPN Active [facility] FOLIC ACID 400 MCG TABS Take one by mouth daily FOLIC ACID 33328661880 Active Rossi Mathews LPN Active REMERON 15 MG TABS take at bedtime MIRTAZAPINE 02413540802 Active Rossi Mathews LPN Active ADULT ASPIRIN EC LOW STRENGTH 81 MG TBEC Take one by mouth daily ASPIRIN 44809805273 Active Rossi Reid PRICE Active TRAZODONE HCL 100 MG TABS take 1-2 tabs at bedtime as needed TRAZODONE HCL 82196250160 Active Dale Pittman Active ALPRAZOLAM 0.25 MG TABS Take one by mouth 3 times daily, morning, afternoon and evening.] ALPRAZOLAM 91478856942 Active Dale Pittman Active LISINOPRIL 10 MG TABS Take one by mouth daily LISINOPRIL 96878077831 Active Dale Pittman Active CYMBALTA 30 MG CPEP Take one by mouth daily CYMBALTA 30 MG CPEP 762085 DULOXETINE HCL Inactive HSAUNA CONTOUR TEST STRP check blood sugars 4x/day [...] tabs at bedtime GABAPENTIN 100 MG CAPS 176698 GABAPENTIN Inactive AMITRIPTYLINE HCL 75 MG TABS Take one by mouth daily AMITRIPTYLINE HCL 75 MG TABS 812846 AMITRIPTYLINE HCL Inactive FUROSEMIDE 40 MG TABS by mouth twice a day FUROSEMIDE 40 MG TABS 111687 FUROSEMIDE Inactive ZOCOR 20 MG TABS take at bedtime ZOCOR 20 MG TABS 397921 SIMVASTATIN Inactive METOPROLOL TARTRATE 25 MG TABS by mouth twice a day METOPROLOL TARTRATE 25 MG TABS 972951 METOPROLOL TARTRATE Inactive LEVEMIR 100 UNIT/ML SOLN 40u every hs LEVEMIR 100 UNIT/ML SOLN INSULIN DETEMIR Inactive AMBIEN 5 MG ORAL TABS 2 tabs every hs prn AMBIEN 5 MG ORAL TABS 094774 ZOLPIDEM TARTRATE Inactive TRESIBA FLEXTOUCH 100 UNIT/ML [...] mg/dL Encounters Code Encounter Date Provider Facility CPT-81144 Level 4 Est. Patient 10:17:45 CDT [facility] CPT-52490 Level 4 Est. Patient 17:01:22 CDT Sammi Olivares [facility] CPT-41835 Level 5 Est. Patient 16:18:07 CDT [facility] CPT-38956 Level 3 Est. Patient 17:20:16 CDT [facility] CPT-27745 Level 5 Est. Patient 09:44:15 CDT [facility] CPT-33563 Level 4 New Patient 07:56:40 INSULATOR CUTTER AND FORMER Kevin Gramajo MD [facility] Procedures Code Procedure Name Date Entry Date Standard Description CPT-63552 Bladder Scan 17:20:16 CDT CPT-A4351 Female Cath 07:56:40 INSULATOR CUTTER [employer] FORMER CPT-09941 Cystoscopy 07:56:40 INSULATOR CUTTER AND FORMER
--- OUTSIDE RECORDS SUMMARY | 2018-10-10 10:34 | XMS REPORT | Clinical Summary ---
[...] 788.21 Active Rena TEMPLETON Incomplete bladder emptying half-way use of insulin treatment V58.67 Active Rena [...] SC SOPN Take 40 daily. INSULIN DEGLUDEC 87844916541 Active Maliheh Ziglari DIRECTOR [facility] Active METFORMIN HCL 500 MG [id number] take 4 a day METFORMIN HCL 47540599840 Active Maliheh Ziglari DIRECTOR [facility] Active NOVOLOG FLEXPEN 100 UNIT/ML SOPN Take 15units with each meal, add 2u/50 for blood sugars above 150, max dose 40u tid INSULIN ASPART 30734593297 Active Jasmeetiheh Ziglari DIRECTOR [facility] Active PEN NEEDLES 31G X 5 MM MISC for a day for insulin injections INSULIN PEN NEEDLE 92339020247 Active Rena Ziglari DIRECTOR [facility] Active TRESIBA FLEXTOUCH 100 UNIT/ML SC SOPN Take 60 units once a day at 6pm, add 2u/ day after 3 days until morning sugar is below 130 INSULIN DEGLUDEC 41721650897 No Longer Active Sammi Olivares APRN Active AMBIEN 5 MG ORAL TABS 2 tabs every hs prn ZOLPIDEM TARTRATE 98211080594 No Longer Active Sammi lOivares APRN Active LANCETS MISC 3 Dx E11.65 LANCETS 19408498438 Active Jasmeetgregever Ziglari DIRECTOR [facility] Active SHAUNA CONTOUR NEXT TEST INVITR STRP check blood sugars 3x/day DX E11.65 05/17 GLUCOSE BLOOD 26875616466 Active Jasmeetgregever Sridharglari DIRECTOR [facility] Active LEVEMIR 100 UNIT/ML SOLN 40u every hs INSULIN DETEMIR 33744652486 No Longer Active Jasmeetgregever Ziglari DIRECTOR [facility] Active JANUVIA 100 MG TABS Take one by mouth daily SITAGLIPTIN PHOSPHATE 10725436790 Active Sammi [place] BORDER PATROL AGENT Active OXYCODONE HCL 20 MG ORAL TABS every 8 hrs as needed OXYCODONE HCL 86166105306 Active Jasmeetgregever Sridharglari DIRECTOR [facility] Active METOPROLOL TARTRATE 25 MG TABS by mouth twice a day METOPROLOL TARTRATE 57318202960 No Longer Active Maliheh Ziglari DIRECTOR [facility] Active ATORVASTATIN CALCIUM 80 MG ORAL TABS Take one by mouth daily ATORVASTATIN CALCIUM 44604251398 [facility] Active ZOCOR 20 MG TABS take at bedtime SIMVASTATIN 10465573773 No Longer [facility] Active FUROSEMIDE 40 MG TABS by mouth twice a day FUROSEMIDE 34958589838 No Longer [facility] Active AMITRIPTYLINE HCL 75 MG TABS Take one by mouth daily AMITRIPTYLINE HCL 47050515551 No Longer [facility] Active GABAPENTIN 100 MG CAPS take 2 tabs in the morning, 1 tab at lunch and 2 tabs at bedtime GABAPENTIN 97354514141 No Longer [facility] Active JANUMET 50-500 MG TABS by mouth twice a day SITAGLIPTIN- METFORMIN HCL 82930606578 No Longer Active [facility] Active DIABETA 5 MG TABS by mouth twice a day GLYBURIDE 13573131380 No Longer [facility] Active SHAUNA CONTOUR TEST STRP check blood sugars 4x/day GLUCOSE BLOOD 54971016004 No Longer [facility] Active TRAZODONE HCL 50 MG TABS take at bedtime TRAZODONE HCL 75376382268 Active Rossi Mathews LPN Active CYMBALTA 30 MG CPEP Take one by mouth daily DULOXETINE HCL 41438966150 No Longer Active Rossi Mathews LPN Active CYMBALTA 60 MG CPEP Take one by mouth daily DULOXETINE HCL 66789223882 Active Rossi Mathews LPN Active COLACE 100 MG CAPS by mouth twice a day DOCUSATE SODIUM 56552408990 Active Rossi Mathews LPN Active MIRALAX POWD 17gm in h2o daily as directed POLYETHYLENE GLYCOL 3350 93147950783 Active Rossi Mathews LPN Active ACETAMINOPHEN 325 MG TABS 2 every 6 hrs prn ACETAMINOPHEN 97994906142 Active Rossi Reid PRICE Active [facility] MILK OF MAGNESIA 1200 MG/15ML SUSP 30 cc prn constipation MAGNESIUM HYDROXIDE 38348699241 Active Rossi Reid PRICE Active CINNAMON 500 MG TABS by mouth twice a day CINNAMON 18843441272 Active Rossi Mathews LPN Active ZINC TABS Take one by mouth daily ZINC TABS 89539103292 Active Rossi Mathews LPN Active CALCIUM + D 600-200 MG-UNIT TABS Take one by mouth daily CALCIUM CARBONATE-VITAMIN D 54900589121 Active Rossi Mathews LPN Active [facility] FOLIC ACID 400 MCG TABS Take one by mouth daily FOLIC ACID 67377815485 Active Rossi Mathews LPN Active REMERON 15 MG TABS take at bedtime MIRTAZAPINE 72658720924 Active Rossi Mathews LPN Active ADULT ASPIRIN EC LOW STRENGTH 81 MG TBEC Take one by mouth daily ASPIRIN 64653114617 Active Rossi Reid PRICE Active TRAZODONE HCL 100 MG TABS take 1-2 tabs at bedtime as needed TRAZODONE HCL 97653563016 Active Dale Pittman Active ALPRAZOLAM 0.25 MG TABS Take one by mouth 3 times daily, morning, afternoon and evening.] ALPRAZOLAM 05319691977 Active Dale Pittman Active LISINOPRIL 10 MG TABS Take one by mouth daily LISINOPRIL 05254695707 Active Dale Pittman Active CYMBALTA 30 MG CPEP Take one by mouth daily CYMBALTA 30 MG CPEP 938622 DULOXETINE HCL Inactive SHAUNA CONTOUR TEST STRP check blood sugars 4x/day SHAUNA CONTOUR TEST STRP GLUCOSE BLOOD Inactive DIABETA 5 MG TABS by mouth twice a day DIABETA 5 MG TABS 964470 GLYBURIDE Inactive JANUMET 50-500 MG TABS by mouth twice a day JANUMET 50-500 MG TABS SITAGLIPTIN-METFORMIN HCL Inactive GABAPENTIN 100 MG CAPS take 2 tabs in the morning, 1 tab at lunch and 2 tabs at bedtime GABAPENTIN 100 MG CAPS 758821 GABAPENTIN Inactive AMITRIPTYLINE HCL 75 MG TABS Take one by mouth daily AMITRIPTYLINE HCL 75 MG TABS 587902 AMITRIPTYLINE HCL Inactive FUROSEMIDE 40 MG TABS by mouth twice a day FUROSEMIDE 40 MG TABS 970024 FUROSEMIDE Inactive ZOCOR 20 MG TABS take at bedtime ZOCOR 20 MG TABS 051945 SIMVASTATIN Inactive METOPROLOL TARTRATE 25 MG TABS by mouth twice a day METOPROLOL TARTRATE 25 MG TABS 377473 METOPROLOL TARTRATE Inactive LEVEMIR 100 UNIT/ML SOLN 40u every hs LEVEMIR 100 UNIT/ML SOLN INSULIN DETEMIR Inactive AMBIEN 5 MG ORAL TABS 2 tabs every hs prn AMBIEN 5 MG ORAL TABS 092296 ZOLPIDEM TARTRATE Inactive TRESIBA FLEXTOUCH 100 UNIT/ML [...] mg/dL Encounters Code Encounter Date Provider Facility CPT-70609 Level 3 Est. Patient 10:01:00 CDT Rena Regalado [facility] CPT-82829 Level 4 Est. Patient 10:17:45 CDT Rena Fabricio [facility] CPT-58902 Level 4 Est. Patient 17:01:22 CDT Sammi Olivares APRN [facility] CPT-51103 Level 5 Est. Patient 16:18:07 CDT [facility] Level 3 Est. Patient 17:20:16 CDT [facility] CPT-41813 Level 5 Est. Patient 09:44:15 CDT [facility] CPT-78157 Level 4 New Patient 07:56:40 FISH ROE TECHNICIAN Kevin Gramajo MD [facility] Procedures Code Procedure Name Date Entry Date Standard Description CPT-48279 Bladder Scan 17:20:16 CDT CPT-A4351 Female Cath 07:56:40 [employer] ROE TECHNICIAN CPT-72138 Cystoscopy 07:56:40 [employer] ROE TECHNICIAN
--- OUTSIDE RECORDS SUMMARY | 2018-10-10 10:34 | XMS REPORT | Clinical Summary ---
Author Author Admin, CARMELO Organization [facility] Address Unknown Phone Unavailable Allergies, Adverse [...] 788.21 Active Rena TEMPLETON Incomplete bladder emptying USP use of insulin treatment V58.67 Active Rena [...] for blood sugar above 150 INSULIN ASPART 12861418877 Active Sammi Olivares PUBLIC POLICY MANAGER Active TRESIBA FLEXTOUCH 100 UNIT/ML SC SOPN Take 60 units once a day at 6pm, add 2u/ day after 3 days until morning sugar is below 130 INSULIN DEGLUDEC 13829442091 No Longer Active Sammi Elise PUBLIC POLICY MANAGER Active AMBIEN 5 MG ORAL TABS 2 tabs every hs prn ZOLPIDEM TARTRATE 92643235139 No Longer Active Sammi Summers PUBLIC POLICY MANAGER Active LANCETS MISC 3 Dx E11.65 LANCETS 60823144289 Active Rena Wallerglari PLASMA PROCESSING TECHNICIAN Active SHAUNA CONTOUR NEXT TEST INVITR STRP check blood sugars 3x/day DX E11.65 05/17 GLUCOSE BLOOD 98848154543 Active Rena Wallerglari PLASMA PROCESSING TECHNICIAN Active LEVEMIR 100 UNIT/ML SOLN 40u every hs INSULIN DETEMIR 27284555736 No Longer Active WriteReader ApS Ziglari PLASMA PROCESSING TECHNICIAN Active JANUVIA 100 MG TABS Take one by mouth daily SITAGLIPTIN PHOSPHATE 04211166676 Active Sammi Olivares PUBLIC POLICY MANAGER Active METFORMIN HCL 500 MG [id number] one a day for 5 days then 2 a day, then add one every 5 days to 4 a day METFORMIN HCL 62434067779 Active Maliheh Ziglari PLASMA PROCESSING TECHNICIAN Active OXYCODONE HCL 20 MG ORAL TABS every 8 hrs as needed OXYCODONE HCL 68309296480 Active Rena Ziglari PLASMA PROCESSING TECHNICIAN Active METOPROLOL TARTRATE 25 MG TABS by mouth twice a day METOPROLOL TARTRATE 06019264040 No Longer Active Maliheh Ziglari PLASMA PROCESSING TECHNICIAN Active ATORVASTATIN CALCIUM 80 MG ORAL TABS Take one by mouth daily ATORVASTATIN CALCIUM 87365532925 Active MalFrameBlasteh Ziglari PLASMA PROCESSING TECHNICIAN Active ZOCOR 20 MG TABS take at bedtime SIMVASTATIN 36904110928 No Longer Active Maliheh Ziglari PLASMA PROCESSING TECHNICIAN Active FUROSEMIDE 40 MG TABS by mouth twice a day FUROSEMIDE 70405794292 No Longer [facility]ESS[facility]IC[facility] Active AMITRIPTYLINE HCL 75 MG TABS Take one by mouth daily AMITRIPTYLINE HCL 70058382750 No Longer [facility] PLASMA PROCESSING TECHNICIAN Active GABAPENTIN 100 MG CAPS take 2 tabs in the morning, 1 tab at lunch and 2 tabs at bedtime GABAPENTIN 54702872977 No Longer [facility] Active JANUMET 50-500 MG TABS by mouth twice a day SITAGLIPTIN- METFORMIN HCL 97730456439 No Longer Active [facility] Active DIABETA 5 MG TABS by mouth twice a day GLYBURIDE 25857329131 No Longer [facility] PLASMA PROCESSING TECHNICIAN Active SHAUNA CONTOUR TEST STRP check blood sugars 4x/day GLUCOSE BLOOD 36236023530 No Longer [facility] Active TRAZODONE HCL 50 MG TABS take at bedtime TRAZODONE HCL 43774034688 Active Rossi Mathews LPN Active CYMBALTA 30 MG CPEP Take one by mouth daily DULOXETINE HCL 47690052989 No Longer Active Rossi Mathews LPN Active CYMBALTA 60 MG CPEP Take one by mouth daily DULOXETINE HCL 51441970009 Active Rossi Mathews LPN Active COLACE 100 MG CAPS by mouth twice a day DOCUSATE SODIUM 92055688174 Active Rossi Mathews LPN Active MIRALAX POWD 17gm in h2o daily as directed POLYETHYLENE GLYCOL 3350 59719219054 Active Rossi Mathews LPN Active ACETAMINOPHEN 325 MG TABS 2 every 6 hrs prn ACETAMINOPHEN 09572182400 Active Rossi Mathews LPN Active [facility] MILK OF MAGNESIA 1200 MG/15ML SUSP 30 cc prn constipation MAGNESIUM HYDROXIDE 23098807116 Active Rossi Mathews LPN Active CINNAMON 500 MG TABS by mouth twice a day CINNAMON 97209426475 Active Rossi Reid PRICE Active ZINC TABS Take one by mouth daily ZINC TABS 22559297176 Active Rossi Reid PRICE Active CALCIUM + D 600-200 MG-UNIT TABS Take one by mouth daily CALCIUM CARBONATE-VITAMIN D 52747057631 Active Rossi Reid PRICE Active [facility] FOLIC ACID 400 MCG TABS Take one by mouth daily FOLIC ACID 05050086049 Active Rossi Reid PRICE Active REMERON 15 MG TABS take at bedtime MIRTAZAPINE 94173617600 Active Rossi Reid PRICE Active ADULT ASPIRIN EC LOW STRENGTH 81 MG TBEC Take one by mouth daily ASPIRIN 75276648855 Active Rossi Reid PRICE Active TRAZODONE HCL 100 MG TABS take 1-2 tabs at bedtime as needed TRAZODONE HCL 31309985699 Active Dale Pittman Active ALPRAZOLAM 0.25 MG TABS Take one by mouth 3 times daily, morning, afternoon and evening.] ALPRAZOLAM 03123579119 Active Dale Pittman Active LISINOPRIL 10 MG TABS Take one by mouth daily LISINOPRIL 87238065553 Active Dale Pittman Active CYMBALTA 30 MG CPEP Take one by mouth daily CYMBALTA 30 MG CPEP 244660 DULOXETINE HCL Inactive SHAUNA CONTOUR TEST STRP [...] tabs at bedtime GABAPENTIN 100 MG CAPS 489169 GABAPENTIN Inactive AMITRIPTYLINE HCL 75 MG TABS Take one by mouth daily AMITRIPTYLINE HCL 75 MG TABS 661332 AMITRIPTYLINE HCL Inactive FUROSEMIDE 40 MG TABS by mouth twice a day FUROSEMIDE 40 MG TABS 905265 FUROSEMIDE Inactive ZOCOR 20 MG TABS take at bedtime ZOCOR 20 MG TABS 044302 SIMVASTATIN Inactive METOPROLOL TARTRATE 25 MG TABS by mouth twice a day METOPROLOL TARTRATE 25 MG TABS 874025 METOPROLOL TARTRATE Inactive LEVEMIR 100 UNIT/ML SOLN 40u every hs LEVEMIR 100 UNIT/ML SOLN INSULIN DETEMIR Inactive AMBIEN 5 MG ORAL TABS 2 tabs every hs prn AMBIEN 5 MG ORAL TABS 689518 ZOLPIDEM TARTRATE Inactive TRESIBA FLEXTOUCH 100 UNIT/ML [...] mg/dL Encounters Code Encounter Date Provider Facility CPT-52881 Level 4 Est. Patient 17:01:22 CDT Sammi Olivares [facility] CPT-14869 Level 5 Est. Patient 16:18:07 CDT [facility] CPT-28086 Level 3 Est. Patient 17:20:16 CDT [facility] CPT-26131 Level 5 Est. Patient 09:44:15 CDT [facility] CPT-33939 Level 4 New Patient 07:56:40 [facility] Kevin Gramajo MD [facility] Procedures Code Procedure Name Date Entry Date Standard Description CPT-62617 Bladder Scan 17:20:16 CDT CPT-A4351 Female Cath 07:56:40 [facility] CPT-44668 Cystoscopy 07:56:40 [facility]
--- OUTSIDE RECORDS SUMMARY | 2018-10-10 10:35 | XMS REPORT | Clinical Summary ---
Author Author Admin, CARMELO Grajeda [facility] Address Unknown Phone Unavailable Allergies, [...] for blood sugar above 150 INSULIN ASPART 13994271456 Active Sammi Olivares MULE TENDER Active TRESIBA FLEXTOUCH 100 UNIT/ML SC SOPN Take 60 units once a day at 6pm, add 2u/ day after 3 days until morning sugar is below 130 INSULIN DEGLUDEC 04109209331 No Longer Active Sammi Lajas MULE TENDER Active AMBIEN 5 MG ORAL TABS 2 tabs every hs prn ZOLPIDEM TARTRATE 86193213492 No Longer Active Sammi Elise MULE TENDER Active LANCETS MISC 3 Dx E11.65 LANCETS 63689715286 Active Rena Wallerglari PENOLOGY PROFESSOR Active SHAUNA CONTOUR NEXT TEST INVITR STRP check blood sugars 3x/day DX E11.65 05/17 GLUCOSE BLOOD 97436230883 Active Rena Wallerglari PENOLOGY PROFESSOR Active LEVEMIR 100 UNIT/ML SOLN 40u every hs INSULIN DETEMIR 79813511594 No Longer Active BareedEE Ziglari PENOLOGY PROFESSOR Active JANUVIA 100 MG TABS Take one by mouth daily SITAGLIPTIN PHOSPHATE 18514244998 Active Sammi Olivares MULE TENDER Active METFORMIN HCL 500 MG [id number] one a day for 5 days then 2 a day, then add one every 5 days to 4 a day METFORMIN HCL 69654968949 Active Maliheh Ziglari PENOLOGY PROFESSOR Active OXYCODONE HCL 20 MG ORAL TABS every 8 hrs as needed OXYCODONE HCL 60005806370 Active Rena Ziglari PENOLOGY PROFESSOR Active METOPROLOL TARTRATE 25 MG TABS by mouth twice a day METOPROLOL TARTRATE 81649985233 No Longer Active Maliheh Ziglari PENOLOGY PROFESSOR Active ATORVASTATIN CALCIUM 80 MG ORAL TABS Take one by mouth daily ATORVASTATIN CALCIUM 51498346287 Active MalAurora Brandseh Ziglari PENOLOGY PROFESSOR Active ZOCOR 20 MG TABS take at bedtime SIMVASTATIN 67794250750 No Longer Active Maliheh Ziglari PENOLOGY PROFESSOR Active FUROSEMIDE 40 MG TABS by mouth twice a day FUROSEMIDE 30859437140 No Longer [facility] Active AMITRIPTYLINE HCL 75 MG TABS Take one by mouth daily AMITRIPTYLINE HCL 77520238610 No Longer [facility] PENOLOGY PROFESSOR Active GABAPENTIN 100 MG CAPS take 2 tabs in the morning, 1 tab at lunch and 2 tabs at bedtime GABAPENTIN 50889839088 No Longer [facility] Active JANUMET 50-500 MG TABS by mouth twice a day SITAGLIPTIN- METFORMIN HCL 65368966627 No Longer Active [facility] Active DIABETA 5 MG TABS by mouth twice a day GLYBURIDE 56855462033 No Longer [facility] PENOLOGY PROFESSOR Active SHAUNA CONTOUR TEST STRP check blood sugars 4x/day GLUCOSE BLOOD 88218573392 No Longer [facility] Active TRAZODONE HCL 50 MG TABS take at bedtime TRAZODONE HCL 31344562659 Active Rossi Mathews LPN Active CYMBALTA 30 MG CPEP Take one by mouth daily DULOXETINE HCL 65169526613 No Longer Active Rossi Mathews LPN Active CYMBALTA 60 MG CPEP Take one by mouth daily DULOXETINE HCL 49412657589 Active Rossi Mathews LPN Active COLACE 100 MG CAPS by mouth twice a day DOCUSATE SODIUM 70440532669 Active Rossi Mathews LPN Active MIRALAX POWD 17gm in h2o daily as directed POLYETHYLENE GLYCOL 3350 53490589695 Active Rossi Mathews LPN Active ACETAMINOPHEN 325 MG TABS 2 every 6 hrs prn ACETAMINOPHEN 73802062063 Active Rossi Mathews LPN Active [facility] MILK OF MAGNESIA 1200 MG/15ML SUSP 30 cc prn constipation MAGNESIUM HYDROXIDE 69481785963 Active Rossi Mathews LPN Active CINNAMON 500 MG TABS by mouth twice a day CINNAMON 71405610465 Active Rossi Reid PRICE Active ZINC TABS Take one by mouth daily ZINC TABS 53317047343 Active Rossi Reid PRICE Active CALCIUM + D 600-200 MG-UNIT TABS Take one by mouth daily CALCIUM CARBONATE-VITAMIN D 04913817114 Active Rossi Reid PRICE Active [facility] FOLIC ACID 400 MCG TABS Take one by mouth daily FOLIC ACID 41014673010 Active Rossi Reid PRICE Active REMERON 15 MG TABS take at bedtime MIRTAZAPINE 43516301237 Active Rossi Reid PRICE Active ADULT ASPIRIN EC LOW STRENGTH 81 MG TBEC Take one by mouth daily ASPIRIN 37753534939 Active Rossi Reid PIRCE Active TRAZODONE HCL 100 MG TABS take 1-2 tabs at bedtime as needed TRAZODONE HCL 32100755452 Active Dale Pittman Active ALPRAZOLAM 0.25 MG TABS Take one by mouth 3 times daily, morning, afternoon and evening.] ALPRAZOLAM 97938281499 Active Dale Pittman Active LISINOPRIL 10 MG TABS Take one by mouth daily LISINOPRIL 57928921715 Active Dale Pittman Active CYMBALTA 30 MG CPEP Take one by mouth daily CYMBALTA 30 MG CPEP 858362 DULOXETINE HCL Inactive SHAUNA CONTOUR TEST STRP [...] tabs at bedtime GABAPENTIN 100 MG CAPS 575587 GABAPENTIN Inactive AMITRIPTYLINE HCL 75 MG TABS Take one by mouth daily AMITRIPTYLINE HCL 75 MG TABS 586902 AMITRIPTYLINE HCL Inactive FUROSEMIDE 40 MG TABS by mouth twice a day FUROSEMIDE 40 MG TABS 161476 FUROSEMIDE Inactive ZOCOR 20 MG TABS take at bedtime ZOCOR 20 MG TABS 701555 SIMVASTATIN Inactive METOPROLOL TARTRATE 25 MG TABS by mouth twice a day METOPROLOL TARTRATE 25 MG TABS 407336 METOPROLOL TARTRATE Inactive LEVEMIR 100 UNIT/ML SOLN 40u every hs LEVEMIR 100 UNIT/ML SOLN INSULIN DETEMIR Inactive AMBIEN 5 MG ORAL TABS 2 tabs every hs prn AMBIEN 5 MG ORAL TABS 338596 ZOLPIDEM TARTRATE Inactive TRESIBA FLEXTOUCH 100 UNIT/ML [...] mg/dL Encounters Code Encounter Date Provider Facility CPT-50964 Level 4 Est. Patient 17:01:22 CDT Sammi Olivares [facility] CPT-44134 Level 5 Est. Patient 16:18:07 CDT [facility] CPT-77253 Level 3 Est. Patient 17:20:16 CDT [facility] CPT-53646 Level 5 Est. Patient 09:44:15 CDT [facility] CPT-87460 Level 4 New Patient 07:56:40 [facility] Kevin Gramajo MD [facility] Procedures Code Procedure Name Date Entry Date Standard Description CPT-06149 Bladder Scan 17:20:16 CDT CPT-A4351 Female Cath 07:56:40 [facility] CPT-72373 Cystoscopy 07:56:40 [facility]
--- OUTSIDE RECORDS SUMMARY | 2018-10-10 10:35 | XMS REPORT | Continuity of Care Document ---
Author Author [facility] Organization [facility] Address [address] [place] [address] Phone Unavailable Care Team Providers Care Procedures Analyst Name Role Phone MITRA REHMAN DPM PCP Insurance Providers Guarantor Jacek Ramirez Address [address] [place] [address] Email n Payer Medicare Policy Number [id number] Subscriber's Name Jacek Ramirez Relationship 18 Self / Same As Patient Effective Date 17 Payer [facility] Policy Number [id number] Subscriber's Name Jacek Ramirez Relationship 18 Self / Same As Patient Payer [place] Medicaid Policy Number [id number] Subscriber's Name Jacek Ramirez Relationship 18 Self / Same As Patient Advance Directives Directive Response Recorded Date/Time Advance Directives No 06/08/18 8:06am Advance Directive on File No 06/08/18 8:06am Problems No problem information available. Medications Current Home Medications Medication Dose Units Route Directions Days Qty Instructions Start Date Albuterol Sulfate 1.25 Mg/3 Ml Vial.neb 1.25 Mg Inhalation Every Four Hours for Shortness Of Breath Alprazolam (Alprazolam Odt) 0.5 Mg Tab.rapdis 0.5 Mg Oral Three Times A Day for Anxiety Aspirin (Aspirin Ec) 81 Mg Tablet.dr 81 Mg Oral Once A Day for Heart Health Atorvastatin Calcium 80 Mg Tablet 80 Mg Oral Once A Day for High Cholestrol Benzonatate (Tessalon Pearls) 100 Mg Capsule 1-2 Cap Oral Every Six Hours for Cough Calcium Carbonate/Vitamin D3 (Calcium 500 + D Tablet) 1 Each Tablet 2 Each Oral Once A Day for Supplement Clopidogrel Bisulfate (Clopidogrel) 75 Mg Tablet 75 Mg Oral Once A Day for Blood Thinning Divalproex Sodium 250 Mg Tablet.dr 250 Mg Oral Everyday At 9 Pm for Unknown Duloxetine Hcl (Cymbalta Capsule) 30 Mg Capsule.dr 60 Mg Oral Once A Day for Depression 1 Capsule Exenatide (Byetta Pen) 2 Mg/0.65 Ml Pen.injctr 2 Mg Sub-Q Weekly for Unk Formoterol Mom 2 Puff Inhalation Twice A Day for Unknown Furosemide 20 Mg Tablet 10 Mg Oral Once A Day for Edema Insulin Degludec (Tresiba Flextouch U-100) 100 Unit/Ml (3 Ml) Insuln.pen 40 Unit Sub-Q Once A Day for Diabetes Ipratropium [place] (Atrovent) 0.2 Mg/1 Ml Solution 0.2 Mg Inhalation Every Four Hours for Shortness Of Breath Levothyroxine Sodium (Synthroid Tablet) 75 Mcg Tablet 75 Mcg Oral Once A Day for Thyroid Dysfunction Lisinopril 5 Mg Tablet 5 Mg Oral Once A Day for Hypertension Meclizine Hcl 12.5 Mg Tablet 25 Mg Oral Four Times A Day for Dizziness Metformin Hcl (Glucophage) 500 Mg Tablet 500 Mg Oral Twice A Day for Diabetes Multivitamin (Multivitamins) 1 Each Capsule 1 Each Oral Once A Day for Supplement Nitroglycerin 0.4 Mg Tab.subl 0.4 Mg Sublingual As Needed as needed for Chest Pain Oxycodone Hcl 10 Mg/0.5 Ml Syringe 20 Mg Oral Every Six Hours for Pain Pantoprazole Sodium (Protonix 40 Mg Tablet) 40 Mg Tablet.dr 40 Mg Oral Twice A Day for Gerd Potassium Chloride (Klor-Con 10 Meq Tablet) 10 Meq Tab.er.12h 10 Meq Oral Once A Day for Supplement Pregabalin (Lyrica) 25 Mg Capsule 25 Mg Oral Twice A Day for Pain Pregabalin (Lyrica) 25 Mg Capsule 25 Mg Oral Twice A Day for Pain Quetiapine Fumarate 25 Mg Tablet 25 Mg Oral Everyday At 9 Pm for Unknown Tramadol Hcl (Ultram Tablet) 50 Mg Tablet 1-2 Tab Oral Every Six Hours for Pain 1 Tablet Trazodone Hcl (Desyrel Tablet) 50 Mg Tablet 50 Mg Oral Everyday At 9 Pm for Sleep 1 Tablet Venlafaxine Hcl (Venlafaxine Hcl Er) 37.5 Mg Cap.er.24h 37.5 Mg Oral Once A Day for Depression Venlafaxine Hcl (Effexor Xr) 75 Mg Cap.er.24h 75 Mg Oral Once A Day for Depression 1 Tablet Social History No social history information available. Hospital Discharge Instructions No hospital discharge instruction information available. Plan of Care Discharge Date 06/08/18 10:35am Prescriptions See Medication Section Functional Status No functional status information available. Allergies, Adverse Reactions, Alerts Allergen Type Severity Reaction Status Last Updated No Known Drug Allergies ([id number]) Allergy Unknown Active 05/31/18 FISH Allergy Unknown Active 05/31/18 Immunizations No immunization information available. Vital Signs Acute Vital Signs Vital Response Date/Time Temperature (Fahrenheit) 97.2 degrees F (97.6 - 99.5) 06/08/2018 9:33am Temperature (Calculated Celsius) 36.53805 degrees C (36.4 - 37.5) 06/08/2018 9:33am Temperature Source Temporal Artery Scan 06/08/2018 9:33am Pulse Pulse Rate (adult) 71 beats per minute (60 - 90) 06/08/2018 10:30am Oxygen Saturation Respiratory Rate 20 breaths per minute (12 - 24) 06/08/2018 10:30am O2 Sat by Pulse Oximetry 97 % (90 - 100) 06/08/2018 10:30am Blood Pressure 119/58 mm Hg 06/08/2018 10:30am Blood Pressure Mean 78 mm Hg 06/08/2018 10:30am Results No relevant diagnostic test, laboratory data and/or discharge summary information available. Procedures Procedure Status Date Provider(s) Fito, bursa Completed 06/08/18 MITRA REHMAN DPM Encounters Encounter Location Arrival/Admit Date Discharge/Depart Date Attending Provider Departed [facility] 06/08/18 6:40am 06/08/18 10 :35am MITRA REHMAN DPM
--- OUTSIDE RECORDS SUMMARY | 2018-10-10 10:36 | XMS REPORT ---
Author Author [facility] Medical Staff Organization [facility] Address [address] [id number] Phone [phone] Care Team Providers Care Exercise Physiologist Name Role Phone SANDRA TORRES MD [phone] Summary purpose TRANSITION OF CARE AUTO GENERATION Chief Complaint and Reason for Visit No authorized Reason for Visit (Admitting Diagnosis) is available for this visit. Problem list No authorized problems tracked for continuity of care are available for this visit. Encounters The following conditions tracked for encounter diagnoses were recorded for this visit: Finding or Diagnosis Status Certainty Chronicity Onset *ABDOMINAL PAIN Active *DIABETES MELLITUS TYPE 2 Active Medications Home Medications Medication Directions Started Status Source Fish Oil 500 mg capsule 500 mg oral 1 Daily Current xzodmdd-ytmklvthm-ngbagi-zinc tablet 1000 mg oral 1 Daily Current ibuprofen 600 mg tablet 600 mg oral PRN 3 Times A Day Current Xanax 0.25 mg tablet 0.25 mg oral 3 Times Daily Current metformin oral 850 mg oral 2 Times Daily Current trazodone 100 mg tablet 200 mg oral At Bed Time Current Celexa 40 mg tablet 40 mg oral 1 Daily Current Allergies, adverse reactions, alerts Allergen Category Ingredient Status Reaction Severity Onset No Known Drug Allergy No known drug allergies No known drug allergies Confirmed or Verified Immunizations No immunizations recorded for this patient visit Relevant diagnostic tests and/or laboratory data RESULTS Routine Urinalysis [id number]:45:00 Result Normal Range Units Color YELLOW Clarity Slighty cloudy Specific [place] 1.020 1.003-1.035 pH 5.0 4.5-8.0 Glucose 3+ Bilirubin NEGATIVE Ketones NEGATIVE Protein 1+ Urobilinogen 0.2 0-0.2 E.U./dL Nitrites NEGATIVE Blood TRACE Leukocytes NEGATIVE WBCs 0-5 RBCs 5-10 Squamous Epithelial Few Bacteria Occasional Mucous 1+ Routine Cultures [id number]:53:00 Urine Culture Plate Date and Time 09/13/2014 19:27 SourceURINE CULTURE REPORT No Growth After 24 Hours Release Date/Time: 09/14/2014 07:46 CULTURE REPORT 10,000 colonies/ml Mixed Gram Pos Courtney Release Date/Time: 09/15/2014 07:26 Chemistry [id number]:15:00 Result Normal Range Units Sodium 140 134-145 mEq/l Potassium 4.1 3.5-5.1 mEq/l Chloride 105 98-107 mEq/l CO2 24.7 22-28 mEq/l Glucose H 123 70-105 mg/dl BUN L 6 7-18 mg/dl Creatinine 0.83 0.6-1.0 mg/dl Calcium 9.2 8.4-10.2 mg/dl Osmolality L 278.4 280-300 mOsm/L Anion GAP 10.3 8-16 BUN/Creatinine Ratio L 7.2 10-20 Estimated GFR 71 >=60 mL/min/1.7 [id number]:18:00 Result Normal Range Units Sodium 143 134-145 mEq/l Potassium L 3.4 3.5-5.1 mEq/l Chloride 106 98-107 mEq/l CO2 H 29.8 22-28 mEq/l Glucose H 108 70-105 mg/dl BUN L 5 7-18 mg/dl Creatinine 0.94 0.6-1.0 mg/dl Calcium 9.0 8.4-10.2 mg/dl Osmolality 282.8 280-300 mOsm/L Anion GAP L 7.2 8-16 BUN/Creatinine Ratio L 5.3 10-20 Estimated GFR 61 >=60 mL/min/1.7 [id number]:38:00 Result Normal Range Units Sodium 143 134-145 mEq/l Potassium 3.9 3.5-5.1 mEq/l Chloride 107 98-107 mEq/l CO2 H 28.8 22-28 mEq/l Glucose H 127 70-105 mg/dl BUN 10 7-18 mg/dl Creatinine H 1.05 0.6-1.0 mg/dl Calcium 9.0 8.4-10.2 mg/dl Osmolality 285.6 280-300 mOsm/L Anion GAP L 7.2 8-16 BUN/Creatinine Ratio L 9.5 10-20 BNP- Brain Natriuretic Peptide 558 0-900 pg/ml Estimated GFR L 54 >=60 mL/min/1.7 [id number]:10:00 Result Normal Range Units Sodium 141 134-145 mEq/l Potassium 4.2 3.5-5.1 mEq/l Chloride H 108 98-107 mEq/l CO2 27.3 22-28 mEq/l Glucose H 126 70-105 mg/dl BUN 7 7-18 mg/dl Creatinine 0.84 0.6-1.0 mg/dl Calcium 8.8 8.4-10.2 mg/dl Osmolality 280.8 280-300 mOsm/L Anion GAP L 5.7 8-16 BUN/Creatinine Ratio L 8.3 10-20 Estimated GFR 70 >=60 mL/min/1.7 :35:00 Result Normal Range Units Sodium 137 134-145 mEq/l Potassium 4.2 3.5-5.1 mEq/l Chloride 103 98-107 mEq/l CO2 H 28.3 22-28 mEq/l Glucose H 113 70-105 mg/dl BUN 9 7-18 mg/dl Creatinine 0.89 0.6-1.0 mg/dl Calcium 8.4 8.4-10.2 mg/dl TP - Total Protein L 5.7 6.0-8.3 g/dl Albumin L 3.0 3.5-5 g/dl Bilirubin - Total 0.4 0.1-1.0 mg/dl AST 39 10-42 IU/L ALT 41 12-65 IU/L ALP 62 25-72 IU/L Osmolality L 273.3 280-300 mOsm/L Albumin/Globulin Ratio 1.1 0-8 Anion GAP L 5.7 8-16 BUN/Creatinine Ratio 10.1 10-20 Estimated GFR 65 >=60 mL/min/1.7 [id number]:10:00 Result Normal Range Units TP - Total Protein 6.3 6.0-8.3 g/dl Albumin L 3.0 3.5-5 g/dl Bilirubin - Total 0.5 0.1-1.0 mg/dl Direct Bilirubin 0.1 0-0.3 mg/dl Bilirubin Indirect 0.4 0.1-1.0 mg/dl AST 14 10-42 IU/L ALT 18 12-65 IU/L ALP 57 25-72 IU/L Albumin/Globulin Ratio 0.9 0-8 :20:00 Result Normal Range Units Sodium 144 134-145 mEq/l Potassium 3.8 3.5-5.1 mEq/l Chloride H 108 98-107 mEq/l CO2 28.0 22-28 mEq/l Glucose H 124 70-105 mg/dl BUN 12 7-18 mg/dl Creatinine H 1.01 0.6-1.0 mg/dl Calcium 8.7 8.4-10.2 mg/dl Osmolality 288.0 280-300 mOsm/L Anion GAP 8.0 8-16 BUN/Creatinine Ratio 11.9 10-20 Estimated GFR L 56 >=60 mL/min/1.7 :58:00 Result Normal Range Units Sodium 142 134-145 mEq/l Potassium 3.5 3.5-5.1 mEq/l Chloride 107 98-107 mEq/l CO2 H 28.2 22-28 mEq/l Glucose H 117 70-105 mg/dl BUN 10 7-18 mg/dl Creatinine 0.83 0.6-1.0 mg/dl Calcium 8.7 8.4-10.2 mg/dl Magnesium L 1.5 1.7-2.8 mg/dl Osmolality 283.2 280-300 mOsm/L Anion GAP L 6.8 8-16 BUN/Creatinine Ratio 12.0 10-20 Estimated GFR 71 >=60 mL/min/1.7 :45:00 Result Normal Range Units Sodium 143 134-145 mEq/l Potassium L 3.3 3.5-5.1 mEq/l Chloride 106 98-107 mEq/l CO2 H 28.6 22-28 mEq/l Glucose H 112 70-105 mg/dl BUN 12 7-18 mg/dl Creatinine 0.90 0.6-1.0 mg/dl Calcium 8.7 8.4-10.2 mg/dl Osmolality 285.5 280-300 mOsm/L Anion GAP 8.4 8-16 BUN/Creatinine Ratio 13.3 10-20 Estimated GFR 65 >=60 mL/min/1.7 69-27-180386:54:00 Result Normal Range Units Sodium 145 134-145 mEq/l Potassium 4.0 3.5-5.1 mEq/l Chloride H 110 98-107 mEq/l CO2 25.8 22-28 mEq/l Glucose H 154 70-105 mg/dl BUN 9 7-18 mg/dl Creatinine 0.86 0.6-1.0 mg/dl Calcium 8.7 8.4-10.2 mg/dl Osmolality 290.5 280-300 mOsm/L Anion GAP 9.2 8-16 BUN/Creatinine Ratio 10.5 10-20 Estimated GFR 68 >=60 mL/min/1.7 :10:00 Result Normal Range Units Sodium 142 134-145 mEq/l Potassium 3.7 3.5-5.1 mEq/l Chloride H 109 98-107 mEq/l CO2 26.2 22-28 mEq/l Glucose H 188 70-105 mg/dl BUN 11 7-18 mg/dl Creatinine 0.96 0.6-1.0 mg/dl Calcium L 8.2 8.4-10.2 mg/dl Osmolality 287.5 280-300 mOsm/L Anion GAP L 6.8 8-16 BUN/Creatinine Ratio 11.5 10-20 Estimated GFR 60 >=60 mL/min/1.7 :45:00 Result Normal Range Units Sodium 143 134-145 mEq/l Potassium 3.7 3.5-5.1 mEq/l Chloride H 108 98-107 mEq/l CO2 27.1 22-28 mEq/l Glucose H 165 70-105 mg/dl BUN H 21 7-18 mg/dl Creatinine 1.00 0.6-1.0 mg/dl Calcium 8.6 8.4-10.2 mg/dl Osmolality 291.6 280-300 mOsm/L Anion GAP L 7.9 8-16 BUN/Creatinine Ratio H 21.0 10-20 Estimated GFR L 57 >=60 mL/min/1.7 :05:00 Result Normal Range Units Sodium 138 134-145 mEq/l Potassium 4.6 3.5-5.1 mEq/l Chloride 102 98-107 mEq/l CO2 26.1 22-28 mEq/l Glucose H 308 70-105 mg/dl BUN H 27 7-18 mg/dl Creatinine H 1.13 0.6-1.0 mg/dl Calcium 9.0 8.4-10.2 mg/dl Osmolality 292.4 280-300 mOsm/L Anion GAP 9.9 8-16 BUN/Creatinine Ratio H 23.9 10-20 Estimated GFR L 50 >=60 mL/min/1.7 :36:00 Result Normal Range Units Glucose H@ 447 70-105 mg/dl 22-43-521258:55:00 Result Normal Range Units Sodium 135 134-145 mEq/l Potassium H 5.2 3.5-5.1 mEq/l Chloride 100 98-107 mEq/l CO2 23.0 22-28 mEq/l Glucose H@ 454 70-105 mg/dl BUN H 29 7-18 mg/dl Creatinine H 1.29 0.6-1.0 mg/dl Calcium 8.8 8.4-10.2 mg/dl Osmolality 295.7 280-300 mOsm/L Anion GAP 12.0 8-16 BUN/Creatinine Ratio H 22.5 10-20 Estimated GFR L 43 >=60 mL/min/1.7 [id number]:50:00 Result Normal Range Units Sodium 137 134-145 mEq/l Potassium 4.5 3.5-5.1 mEq/l SLIGHTLY HEMOLYZED Chloride 101 98-107 mEq/l CO2 25.1 22-28 mEq/l Glucose H 373 70-105 mg/dl BUN H 23 7-18 mg/dl Creatinine H 1.31 0.6-1.0 mg/dl Calcium 9.3 8.4-10.2 mg/dl TP - Total Protein 7.5 6.0-8.3 g/dl Albumin 3.9 3.5-5 g/dl Bilirubin - Total 0.4 0.1-1.0 mg/dl AST 12 10-42 IU/L ALT 21 12-65 IU/L ALP 72 25-72 IU/L Amylase 35 25-125 U/L Lipase 165 73-393 U/L Osmolality 292.8 280-300 mOsm/L Albumin/Globulin Ratio 1.1 0-8 Anion GAP 10.9 8-16 BUN/Creatinine Ratio 17.6 10-20 Estimated GFR L 42 >=60 mL/min/1.7 Hematology :18:00 Result Normal Range Units WBC 4.9 4.8-10.8 103/uL RBC 4.6 4.2-5.4 106/uL HGB 12.6 12.0-16.0 g/dl HCT L 36.1 36.9-47.0 % MCV L 79.2 81-99 FL MCH 27.6 27-31 pg MCHC 34.9 33-37 g/dl RDW 14.1 11.5-15.5 % PLT 143 130-400 103/uL MPV H 11.5 7.3-10.4 FL [id number]:38:00 Result Normal Range Units WBC 5.1 4.8-10.8 103/uL RBC 5.0 4.2-5.4 106/uL HGB 13.7 12.0-16.0 g/dl HCT 39.8 36.9-47.0 % MCV L 79.9 81-99 FL MCH 27.5 27-31 pg MCHC 34.4 33-37 g/dl RDW 13.9 11.5-15.5 % PLT 132 130-400 103/uL MPV H 11.6 7.3-10.4 FL Neutro % H 75.2 40-70 % Lymph % L 14.9 20-40 % [place] % 6.5 0-10.0 % Eos % 2.4 0-7.0 % Baso % 1.0 0-2 % Neutro # 3.8 1.5-7.5 103/uL Lymph # L 0.8 0.9-4.0 103/uL [place] # 0.3 0-0.8 103/uL Eos # 0.1 0-0.6 103/uL Baso # 0.1 0-0.1 103/uL [id number]:10:00 Result Normal Range Units WBC 4.8 4.8-10.8 103/uL RBC 4.4 4.2-5.4 106/uL HGB 12.2 12.0-16.0 g/dl HCT L 35.1 36.9-47.0 % MCV L 79.1 81-99 FL MCH 27.5 27-31 pg MCHC 34.8 33-37 g/dl RDW 13.6 11.5-15.5 % PLT 139 130-400 103/uL MPV H 11.3 7.3-10.4 FL Neutro % H 72.1 40-70 % Lymph % L 15.7 20-40 % [place] % 8.5 0-10.0 % Eos % 2.7 0-7.0 % Baso % 1.0 0-2 % Neutro # 3.5 1.5-7.5 103/uL Lymph # L 0.8 0.9-4.0 103/uL [place] # 0.4 0-0.8 103/uL Eos # 0.1 0-0.6 103/uL Baso # 0.1 0-0.1 103/uL [id number]:35:00 Result Normal Range Units WBC 7.8 4.8-10.8 103/uL RBC 4.9 4.2-5.4 106/uL HGB 13.2 12.0-16.0 g/dl HCT 39.3 36.9-47.0 % MCV L 80.4 81-99 FL MCH 27.0 27-31 pg MCHC 33.6 33-37 g/dl RDW 13.9 11.5-15.5 % PLT 136 130-400 103/uL MPV H 11.5 7.3-10.4 FL Neutro % H 80.8 40-70 % Lymph % L 9.5 20-40 % [place] % 6.6 0-10.0 % Eos % 2.2 0-7.0 % Baso % 0.9 0-2 % Neutro # 6.3 1.5-7.5 103/uL Lymph # L 0.7 0.9-4.0 103/uL [place] # 0.5 0-0.8 103/uL Eos # 0.2 0-0.6 103/uL Baso # 0.1 0-0.1 103/uL [id number]:20:00 Result Normal Range Units WBC 6.0 4.8-10.8 103/uL RBC 5.0 4.2-5.4 106/uL HGB 13.8 12.0-16.0 g/dl HCT 39.6 36.9-47.0 % MCV L 78.7 81-99 FL MCH 27.4 27-31 pg MCHC 34.8 33-37 g/dl RDW 13.6 11.5-15.5 % PLT 151 130-400 103/uL MPV H 11.5 7.3-10.4 FL Neutro % H 72.2 40-70 % Lymph % L 15.0 20-40 % [place] % 8.3 0-10.0 % Eos % 2.8 0-7.0 % Baso % 1.7 0-2 % Neutro # 4.3 1.5-7.5 103/uL Lymph # 0.9 0.9-4.0 103/uL [place] # 0.5 0-0.8 103/uL Eos # 0.2 0-0.6 103/uL Baso # 0.1 0-0.1 103/uL [id number]:45:00 Result Normal Range Units WBC 6.2 4.8-10.8 103/uL RBC 4.7 4.2-5.4 106/uL HGB 13.2 12.0-16.0 g/dl HCT 37.4 36.9-47.0 % MCV L 79.1 81-99 FL MCH 27.9 27-31 pg MCHC 35.3 33-37 g/dl RDW 13.3 11.5-15.5 % PLT 133 130-400 103/uL MPV H 12.1 7.3-10.4 FL [id number]:54:00 Result Normal Range Units WBC 5.2 4.8-10.8 103/uL RBC 5.0 4.2-5.4 106/uL HGB 13.8 12.0-16.0 g/dl HCT 38.9 36.9-47.0 % MCV L 77.3 81-99 FL MCH 27.4 27-31 pg MCHC 35.5 33-37 g/dl RDW 13.1 11.5-15.5 % PLT 153 130-400 103/uL MPV H 11.7 7.3-10.4 FL [id number]:10:00 Result Normal Range Units WBC 5.2 4.8-10.8 103/uL RBC 4.8 4.2-5.4 106/uL HGB 13.1 12.0-16.0 g/dl HCT 37.0 36.9-47.0 % MCV L 77.7 81-99 FL MCH 27.5 27-31 pg MCHC 35.4 33-37 g/dl RDW 12.9 11.5-15.5 % PLT 149 130-400 103/uL MPV H 11.8 7.3-10.4 FL Neutro % 65.9 40-70 % Lymph % 21.4 20-40 % [place] % 8.0 0-10.0 % Eos % 3.6 0-7.0 % Baso % 1.1 0-2 % Neutro # 3.5 1.5-7.5 103/uL Lymph # 1.1 0.9-4.0 103/uL [place] # 0.4 0-0.8 103/uL Eos # 0.2 0-0.6 103/uL Baso # 0.1 0-0.1 103/uL [id number]:45:00 Result Normal Range Units WBC 7.3 4.8-10.8 103/uL RBC 4.9 4.2-5.4 106/uL HGB 13.4 12.0-16.0 g/dl HCT 38.5 36.9-47.0 % MCV L 78.9 81-99 FL MCH 27.5 27-31 pg MCHC 34.8 33-37 g/dl RDW 13.5 11.5-15.5 % PLT 154 130-400 103/uL MPV H 11.5 7.3-10.4 FL Segs 65 40-70 % Lymphs 31 20-40 % [place] 3 0-10 % Eos 1 0-7 % [id number]:05:00 Result Normal Range Units WBC H 13.8 4.8-10.8 103/uL RBC 5.1 4.2-5.4 106/uL HGB 14.0 12.0-16.0 g/dl HCT 39.1 36.9-47.0 % MCV L 77.3 81-99 FL MCH 27.7 27-31 pg MCHC 35.8 33-37 g/dl RDW 12.9 11.5-15.5 % PLT 195 130-400 103/uL MPV H 11.7 7.3-10.4 FL Neutro % H 88.9 40-70 % Lymph % L 6.1 20-40 % [place] % 4.9 0-10.0 % Eos % 0.0 0-7.0 % Baso % 0.1 0-2 % Neutro # H 12.3 1.5-7.5 103/uL Lymph # L 0.8 0.9-4.0 103/uL [place] # 0.7 0-0.8 103/uL Eos # 0.0 0-0.6 103/uL Baso # 0.0 0-0.1 103/uL [id number]:55:00 Result Normal Range Units WBC 6.9 4.8-10.8 103/uL RBC H 5.5 4.2-5.4 106/uL HGB 15.3 12.0-16.0 g/dl HCT 43.8 36.9-47.0 % MCV L 79.6 81-99 FL MCH 27.8 27-31 pg MCHC 34.9 33-37 g/dl RDW 12.9 11.5-15.5 % PLT 175 130-400 103/uL MPV H 12.5 7.3-10.4 FL :50:00 Result Normal Range Units WBC 8.5 4.8-10.8 103/uL RBC H 5.7 4.2-5.4 106/uL HGB 15.8 12.0-16.0 g/dl HCT 43.4 36.9-47.0 % MCV L 76.1 81-99 FL MCH 27.7 27-31 pg MCHC 36.4 33-37 g/dl RDW 13.2 11.5-15.5 % PLT 221 130-400 103/uL MPV H 11.6 7.3-10.4 FL Neutro % H 77.4 40-70 % Lymph % L 13.6 20-40 % [place] % 6.5 0-10.0 % Eos % 1.1 0-7.0 % Baso % 1.4 0-2 % Neutro # 6.6 1.5-7.5 103/uL Lymph # 1.2 0.9-4.0 103/uL [place] # 0.6 0-0.8 103/uL Eos # 0.1 0-0.6 103/uL Baso # 0.1 0-0.1 103/uL [facility] [id number]:10:00 Result Normal Range Units Occult Blood 2 Negative Negative Special Chemistry :45:00 Result Normal Range Units Hemoglobin A1C H 11.3 4.5-6.2 % Reference Lab ([facility]) [id number]:38:00 Result Normal Range Units D-Dimer H@ 2250 0-400 ng/ml Body Fluid [id number]:45:00 Result Normal Range Units pH 5.0 4.5-8.0 Cardiac [id number]:30:00 Result Normal Range Units Troponin I < [...] patient history should be interpreted with caution. [id number]:30:00 Result Normal Range Units Troponin I < [...] patient history should be interpreted with caution. :40:00 Result Normal Range Units CKMB 0.6 0-3.6 ng/ml Patient samples may contain heterophilic [...] patient history should be interpreted with caution. Hematology - Other (Misc) [id number]:50:00 Result Normal Range Units Sed Rate 4 0-30 Radiology Results :28:00 Chest X-Ray - 2 View PACs Image DATE OF EXAM: Oct 03 2014 RAD 0300-CHEST XRAY 2 VIEW : RADIOLOGY REPORT DATE OF SERVICE: 10/03/14 HISTORY: Patient has abdomen pain, colitis, hypertension. CHEST 2 VIEWS 0725 HOURS The patient has undergone coronary artery bypass surgery. Heart and mediastinum are normal. Pulmonary vascularity is normal. Lungs are clear. There is blunting of the posterior costophrenic angle on lateral view suggesting small effusion. I cannot determine if this is on the right or left as this is not seen on the PA view. This patient had bilateral pleural effusions on 10/01/2014 CT study. Also effusion was seen posteriorly on 09/29/2014 study. There is resolution of the vascular congestion in the lungs seen on 09/29/2014 with no other changes. IMPRESSION: As above. Vanessa Ignacio DO /nc 10/03/2014 08:47:00 / 10/03/2014 08:55:01 cc:Dr. Sandra Torres This document has been electronically Signed by: On: DATE OF EXAM: Oct 03 2014 RAD 0300-CHEST XRAY 2 VIEW : RADIOLOGY REPORT DATE OF SERVICE: 10/03/14 HISTORY: Patient has abdomen pain, colitis, hypertension. CHEST 2 VIEWS 0725 HOURS The patient has undergone coronary artery bypass surgery. Heart and mediastinum are normal. Pulmonary vascularity is normal. Lungs are clear. There is blunting of the posterior costophrenic angle on lateral view suggesting small effusion. I cannot determine if this is on the right or left as this is not seen on the PA view. This patient had bilateral pleural effusions on 10/01/2014 CT study. Also effusion was seen posteriorly on 09/29/2014 study. There is resolution of the vascular congestion in the lungs seen on 09/29/2014 with no other changes. IMPRESSION: As above. Vanessa Ignacio DO [facility] 10/03/2014 08:47:00 / 10/03/2014 08:55:01 cc:Dr. Sandra Torres This document has been electronically Signed by: VANESSA IGNACIO DO On: Oct 04 20148:28A Result Amended on 2014-10-04 at 08:28:40. Previous status was [place]. [id number]:18:00 Result Normal Range Units MPV H 11.5 7.3-10.4 FL [id number]:38:00 Result Normal Range Units MPV H 11.6 7.3-10.4 FL [id number]:33:00 Chest X-Ray - 2 View PACs Image DATE OF EXAM: 2013 RAD 0300-CHEST XRAY 2 VIEW : RADIOLOGY REPORT DATE OF SERVICE: 09/29/2014 HISTORY: Patient has abdomen pain, history of colitis, and hypertension. CHEST 2 VIEWS 1155 HOURS The patient has undergone coronary artery bypass surgery. Heart size is normal. Vascularity appears somewhat increased. With normal heart size, this may be due to extracardiac cause such as renal disease. There appear to be bilateral pleural effusions seen posteriorly. These are not seen on the lateral costophrenic angles. No alveolar density is appreciated. IMPRESSION: Normal-sized heart. Vascular prominence of mild degree. Bilateral effusions. Does this patient has any extra-cardiac cause of vascular congestion such as renal disease. Continued followup needed with the effusions and vascular congestion present which are all new from 12/29/2012. DO JAROD Quiroga/pablo 09/30/2014 10:17:00 / 09/30/2014 11:17:16 cc:Dr. Sandra Torres This document has been electronically Signed by: On: DATE OF EXAM: 2013 RAD 0300-CHEST XRAY 2 VIEW : RADIOLOGY REPORT DATE OF SERVICE: 09/29/2014 HISTORY: Patient has abdomen pain, history of colitis, and hypertension. CHEST 2 VIEWS 1155 HOURS The patient has undergone coronary artery bypass surgery. Heart size is normal. Vascularity appears somewhat increased. With normal heart size, this may be due to extracardiac cause such as renal disease. There appear to be bilateral pleural effusions seen posteriorly. These are not seen on the lateral costophrenic angles. No alveolar density is appreciated. IMPRESSION: Normal-sized heart. Vascular prominence of mild degree. Bilateral effusions. Does this patient has any extra-cardiac cause of vascular congestion such as renal disease. Continued followup needed with the effusions and vascular congestion present which are all new from 12/29/2012. DO JAROD Quiroga/gc 09/30/2014 10:17:00 / 09/30/2014 11:17:16 cc:Dr. Sandra Torres This document has been electronically Signed by: VANESSA IGNACIO DO On: 20132:33P Result Amended on 2014-09-30 at 14:33:32. Previous status was [place]. [id number]:10:00 Result Normal Range Units MPV H 11.3 7.3-10.4 FL [id number]:35:00 Result Normal Range Units MPV H 11.5 7.3-10.4 FL [id number]:20:00 Result Normal Range Units MPV H 11.5 7.3-10.4 FL [id number]:37:00 GASTRIC EMPTYING STUDY PACs Image DATE OF EXAM: 2013 [id number] EMPTYING STUDY : RADIOLOGY REPORT DATE OF SERVICE: 09/24/14 HISTORY: Abdominal pain RADIONUCLIDE GASTRIC EMPTYING STUDY SOLID [id number] HOURS Test meal consisting of a scrambled egg was labeled with 1 mCi 99m technetium sulfur colloid. Following ingestion of the test meal, abdominal imaging was performed. Time to half emptying of the stomach is 57.15 minutes, slightly faster than average normal range of 90-120 minutes. IMPRESSION: Fairly rapid gastric emptying. MD TANNER Ellis/nc09/24/2014 13:34:00 / 09/24/2014 14:39:39 cc:Dr. Sandra Torres This document has been electronically Signed by: On: DATE OF EXAM: 2013 [id number] EMPTYING STUDY : RADIOLOGY REPORT DATE OF SERVICE: 09/24/14 HISTORY: Abdominal pain RADIONUCLIDE GASTRIC EMPTYING STUDY SOLID [id number] HOURS Test meal consisting of a scrambled egg was labeled with 1 mCi 99m technetium sulfur colloid. Following ingestion of the test meal, abdominal imaging was performed. Time to half emptying of the stomach is 57.15 minutes, slightly faster than average normal range of 90-120 minutes. IMPRESSION: Fairly rapid gastric emptying. MD TANNER Ellis/nc09/24/2014 13:34:00 / 09/24/2014 14:39:39 cc:Dr. Sandra Torres This document has been electronically Signed by: DIPESH THORPE On: 20133:37P Result Amended on 2014-09-24 at 15:37:32. Previous status was [place]. [id number]:18:00 Abdomen 2 View PACs Image DATE OF EXAM: Sep 22 2014 RAD 0037-ABDOMEN 2 VIEW : RADIOLOGY REPORT DATE OF SERVICE: 09/22/14 HISTORY: Abdominal pain. ABDOMEN 2 VIEWS 1716 HOURS The colon and small bowel show mild gaseous prominence without significant air fluid levels. There is no definite obstruction. There is no free air. No pathological calcifications are noted. IMPRESSION: Nonspecific bowel dilatation raising the question of mild ileus. MD TANNER Ellis/09/23/2014 10:07: / 09/23/2014 10:18:12 cc:Dr Torres This document has been electronically Signed by: On: DATE OF EXAM: Sep 22 2014 RAD 0037-ABDOMEN 2 VIEW : RADIOLOGY REPORT DATE OF SERVICE: 09/22/14 HISTORY: Abdominal pain. ABDOMEN 2 VIEWS 1716 HOURS The colon and small bowel show mild gaseous prominence without significant air fluid levels. There is no definite obstruction. There is no free air. No pathological calcifications are noted. IMPRESSION: Nonspecific bowel dilatation raising the question of mild ileus. MD TANNER Ellis/09/23/2014 10:07: / 09/23/2014 10:18:12 cc:Dr Torres This document has been electronically Signed by: DIPESH THORPE On: Sep 23 2014 12:18P Result Amended on 2014-09-23 at 12:18:55. Previous status was [place]. [id number]:45:00 Result Normal Range Units MPV H 12.1 7.3-10.4 FL [id number]:42:00 Gallbladder Sono PACs Image DATE OF EXAM: Sep 18 2014 [id number] SONO : RADIOLOGY REPORT DATE OF SERVICE:09/18/2014 HISTORY: Patient has abdomen pain, normal CT and endoscopy. GALLBLADDER SONOGRAM 1600 HOURS The pancreas was not visualized due to bowel gas. The gallbladder is seen without any wall thickening. There is a fold in the proximal gallbladder. With the patient supine no evidence of polyps or stones are seen. Patient was rolled up into the left decubitus position, and there are 2 small echogenic structures along the posterior wall with no shadowing. I suspect these represent portion of the fold or small polyps measuring only 3 to 4 mm each. These do not appear to move on the images. There is no biliary ductal dilatation with common duct measuring 4 mm. Liver is homogeneous in echodensity. There is no ascites. IMPRESSION: Questionable small polyps in the gallbladder numbering 2. No wall thickening of gallbladder. If evaluation of gallbladder function is desired, a nuclear hepatobiliary study could be performed. There is a slight chance that the 2 small echogenic structures represent non-shadowing calculi. Vanessa Ignacio DO / 09/19/2014 07:48:00 / 09/19/2014 09:48:29 cc:Dr. Torres This document has been electronically Signed by: On: DATE OF EXAM: Sep 18 2014 [id number] SONO : RADIOLOGY REPORT DATE OF SERVICE:09/18/2014 HISTORY: Patient has abdomen pain, normal CT and endoscopy. GALLBLADDER SONOGRAM 1600 HOURS The pancreas was not visualized due to bowel gas. The gallbladder is seen without any wall thickening. There is a fold in the proximal gallbladder. With the patient supine no evidence of polyps or stones are seen. Patient was rolled up into the left decubitus position, and there are 2 small echogenic structures along the posterior wall with no shadowing. I suspect these represent portion of the fold or small polyps measuring only 3 to 4 mm each. These do not appear to move on the images. There is no biliary ductal dilatation with common duct measuring 4 mm. Liver is homogeneous in echodensity. There is no ascites. IMPRESSION: Questionable small polyps in the gallbladder numbering 2. No wall thickening of gallbladder. If evaluation of gallbladder function is desired, a nuclear hepatobiliary study could be performed. There is a slight chance that the 2 small echogenic structures represent non-shadowing calculi. Vanessa Ignacio DO MW/gc 09/19/2014 07:48:00 / 09/19/2014 09:48:29 cc:Dr. Torres This document has been electronically Signed by: VANESSA IGNACIO DO On: Sep 19 20142:42P Result Amended on 2014-09-19 at 14:43:00. Previous status was [place]. [id number]:54:00 Result Normal Range Units MPV H 11.7 7.3-10.4 FL [id number]:10:00 Result Normal Range Units MPV H 11.8 7.3-10.4 FL [id number]:45:00 Result Normal Range Units MPV H 11.5 7.3-10.4 FL [id number]:05:00 Result Normal Range Units MPV H 11.7 7.3-10.4 FL [id number]:21:00 CT ABD/PEL W CONTRAST PACs Image DATE OF EXAM: Sep 12 2014 [id number] ABD/PELV W CONTRAST : RADIOLOGY REPORT DATE OF SERVICE: 09/12/14 HISTORY: Hypogastric pain CT ABDOMEN AND PELVIS WITH CONTRAST 1740 HOURS Axial scans were obtained at 5 mm intervals following administration of oral and intravenous contrast. 75 mL Isovue-300 was utilized for intravenous enhancement. The liver and spleen are normal. The gallbladder is mildly prominent measuring 4.3 cm in diameter and 12 cm in length. The bile ducts are normal in caliber. There is no gallbladder wall thickening. There is a large left adrenal gland mass, predominantly containing fat and some interspersed soft tissue elements. No calcifications are evident. The mass measures 10.2 cm transverse, 11.4 cm AP, and 10 cm cephalocaudal. This is slightly larger when compared with the study of 12/30/2012. The mass displaces the left kidney caudally. Both kidneys are normal in size without masses or calculi. There is no free air or ascites. There is no evidence of diverticulitis. The appendix is normal. The abdominal wall is unremarkable. The inflammatory changes noted in the right flank on the prior study have resolved. IMPRESSION: Large left adrenal gland fat containing mass probably representing a myelolipoma. The gallbladder is mildly prominent in size. This is nonspecific. If there is laboratory evidence of biliary pathology, consider followup ultrasound. Findings were telephoned to Dr. Ventura in the emergency department on 09/12/2014 at 1750 hours. Dipesh Thorpe MD MWD/nh09/13/2014 08:16:00 / 09/13/2014 08:39:32 cc:Dr. Sandra Torres This document has been electronically Signed by: On: DATE OF EXAM: Sep 12 2014 [id number] ABD/PELV W CONTRAST : RADIOLOGY REPORT DATE OF SERVICE: 09/12/14 HISTORY: Hypogastric pain CT ABDOMEN AND PELVIS WITH CONTRAST 1740 HOURS Axial scans were obtained at 5 mm intervals following administration of oral and intravenous contrast. 75 mL Isovue-300 was utilized for intravenous enhancement. The liver and spleen are normal. The gallbladder is mildly prominent measuring 4.3 cm in diameter and 12 cm in length. The bile ducts are normal in caliber. There is no gallbladder wall thickening. There is a large left adrenal gland mass, predominantly containing fat and some interspersed soft tissue elements. No calcifications are evident. The mass measures 10.2 cm transverse, 11.4 cm AP, and 10 cm cephalocaudal. This is slightly larger when compared with the study of 12/30/2012. The mass displaces the left kidney caudally. Both kidneys are normal in size without masses or calculi. There is no free air or ascites. There is no evidence of diverticulitis. The appendix is normal. The abdominal wall is unremarkable. The inflammatory changes noted in the right flank on the prior study have resolved. IMPRESSION: Large left adrenal gland fat containing mass probably representing a myelolipoma. The gallbladder is mildly prominent in size. This is nonspecific. If there is laboratory evidence of biliary pathology, consider followup ultrasound. Findings were telephoned to Dr. Ventura in the emergency department on 09/12/2014 at 1750 hours. MD TANNER Ellis/nc09/13/2014 08:16:00 / 09/13/2014 08:39:32 cc:Dr. Sandra Torres This document has been electronically Signed by: DIPESH THORPE On: Sep 13:21P Result Amended on 2014-09-13 at 13:21:41. Previous status was [place]. 47-74-228412:55:00 Result Normal Range Units MPV H 12.5 7.3-10.4 FL 22-68-858841:50:00 Result Normal Range Units MPV H 11.6 7.3-10.4 FL History of procedures No procedures recorded for this patient visit. Functional status Functional Status Finding Observation Time Hearing Prob Loc none :05 Vision Problems yes :05 Vision Correct Dev glasses 00-72-150085:05 Ambulation Asst Dev none :05 Range of Motion full 43-68-623867:00 Muscle Strength RUE 5 ROM full resist 36-97-994341:00 Muscle Strength RLE 5 ROM full resist 69-20-280343:00 Muscle Strength LUE 5 ROM full resist 68-54-185648:00 Muscle Strength LLE 5 ROM full resist 66-37-212119:00 Transfers assist x 1 95-85-322312:00 Ambulation in room 02-84-307957:00 Balance steady :00 Bathing Assistance none 85-50-840803:05 Eating Assistance none 09-96-758419:10 Dressing Assistance none :05 Toileting Assistance none :05 Transfer Assistance minimal :05 Decline Slf Care/Mob yes (consult PT) Comment: since shoulder surgery :05 Phys Cond Stable yes :05 Cognitive Status Finding Observation Time Oriented To Date 5 Yes :[address] 5 Yes :05 Name 3 Objects 3 Yes :05 Name Object in Rm 2 Yes :05 Recall 3 Objects 3 Yes :05 Repeats a Phrase 1 Yes :05 Follows Verbal Direc 3 Yes :05 Follows Written Dire 1 Yes :05 Write a Sentance 1 Yes :05 Draw an Object 1 Yes :05 Mini Mental Total 25 points :05 Less than 20 Phys not applicable :05 Learning Ability comprehends well :00 Neurological no :00 Psychological no 19-71-845576:00 Physical no 18-80-592993:00 Hearing no :00 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 Hospital discharge instructions Discharge Date/Time 10-06-14 1540 Accompanied By Self Dismissal Condition good Disposition on DC home Valuables no Valuable Type other (specify) Comment: earrings, clothing, cell phone, watch DC Inst/Educ Give yes Exit Care Educ Given yes Med/Side Effects Rev yes DC Med Rec Rev yes Vaccines Ord Given yes Medical Equipment n/a Diet Explained yes Follow up appt call for appointment Follow Up Appt D/T 7-10 days
--- OUTSIDE RECORDS SUMMARY | 2018-10-10 10:37 | XMS REPORT ---
Author Author [facility] [employer] [facility] Medical Staff Organization [facility] Address [address] [id number] Phone [phone] Care Team Providers Care Filbert Grower Name Role Phone MELISSA MEDEROS, SANDRA FONG [phone] MELISSA MEDEROS, SANDRA FONG [phone] MELISSA MEDEROS, SANDRA FONG [phone] MELISSA MEDEROS, SANDRA FONG [phone] Summary purpose TRANSITION OF CARE AUTO GENERATION Chief Complaint and Reason for Visit Admit Diagnosis 1 ABDOMINAL PAIN BACK PAIN Problem list No authorized problems tracked for continuity of care are available for this visit. 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 [...] Em Piña PA-C for Sandra Brunner MD /ar 01/18/2015 12:22:54/01/18/2015 15:03:16 Clinic Code: 72620 cc: [facility] [address] [place] [address] <END HEADER> Routine Urinalysis 70-58-789611:35:00 Result Normal Range Units Color YELLOW Clarity Clear Specific [place] 1.010 1.003-1.035 pH 6.0 4.5-8.0 Glucose 3+ Bilirubin NEGATIVE Ketones NEGATIVE Protein NEGATIVE Urobilinogen 0.2 0-0.2 E.U./dL Nitrites NEGATIVE Blood NEGATIVE Leukocytes NEGATIVE WBCs No WBC's Seen RBCs 0-5 Squamous Epithelial Few Chemistry [id number]:30:00 Result Normal Range Units Sodium 140 134-145 mEq/l Potassium 4.6 3.5-5.1 mEq/l Chloride 103 98-107 mEq/l CO2 27.6 22-28 mEq/l Glucose H 257 70-105 mg/dl BUN H 28 7-18 mg/dl Creatinine H 1.06 0.6-1.0 mg/dl Calcium L 8.2 8.4-10.2 mg/dl Osmolality 293.7 280-300 mOsm/L Anion GAP 9.4 8-16 BUN/Creatinine Ratio H 26.4 10-20 Estimated GFR L 53 >=60 mL/min/1.7 30-36-103680:00:00 Result Normal Range Units C-Reactive Protein < 0.2 0-1 mg/dl 39-50-825843:59:00 Result Normal Range Units Sodium 136 134-145 [...] 10-20 Estimated GFR L 44 >=60 mL/min/1.7 80-25-068188:44:00 Result Normal Range Units Sodium 134 134-145 [...] Estimated GFR L 58 >=60 mL/min/1.7 Hematology 33-43-691718:59:00 Result Normal Range Units WBC 6.3 4.8-10.8 103/uL RBC H 5.5 4.2-5.4 106/uL HGB 15.0 12.0-16.0 g/dl HCT 41.9 36.9-47.0 % MCV L 75.6 81-99 FL MCH 27.1 27-31 pg MCHC 35.8 33-37 g/dl RDW 13.5 11.5-15.5 % PLT 187 130-400 103/uL MPV H 11.3 7.3-10.4 FL Segs 63.0 40-70 % Lymphs 26.0 20-40 % [place] 8.0 0-10 % Eos 1.0 0-7 % Baso 2.0 0-2 % [id number]:44:00 Result Normal Range Units WBC 9.5 4.8-10.8 103/uL RBC H 5.5 4.2-5.4 106/uL HGB 15.0 12.0-16.0 g/dl HCT 41.8 36.9-47.0 % MCV L 76.0 81-99 FL MCH 27.3 27-31 pg MCHC 35.9 33-37 g/dl RDW 13.3 11.5-15.5 % PLT 159 130-400 103/uL MPV H 11.3 7.3-10.4 FL Neutro % H 75.4 40-70 % Lymph % L 15.0 20-40 % [place] % 6.8 0-10.0 % Eos % 1.7 0-7.0 % Baso % 1.1 0-2 % Neutro # 7.2 1.5-7.5 103/uL Lymph # 1.4 0.9-4.0 103/uL [place] # 0.6 0-0.8 103/uL Eos # 0.2 0-0.6 103/uL Baso # 0.1 0-0.1 103/uL Special Chemistry [id number]:46:00 Result Normal Range Units Hemoglobin A1C H 10.7 4.5-6.2 % Reference Lab ([facility]) [id number]:00:00 Result Normal Range Units TRANG (Antinuclear Antibodies) NEGATIVE NEGATIVE TEST PERFORMED AT: [facility] [address] [place] [address] ASTRID VILLARREAL DO,MPH Body Fluid 00-47-437578:35:00 Result Normal Range Units pH 6.0 4.5-8.0 Hematology - Other (Misc) 57-53-761858:00:00 Result Normal Range Units Sed Rate 1 0-30 Radiology Results [id number]:28:00 MRI L-SPINE W/O CONT PACs Image DATE [...] on 2015-01-18 at 09:28:47. Previous status was [place]. ABDOMINAL PAIN BACK PAIN MRI T-SPINE W/O [...] T4-T5, T5-T6, T6-T7 and T7-T8. MD TANNER Ellis/jeff03 17:09: / 01/17/2015 22:35:10 cc:Dr. Sandra Brunner [...] T4-T5, T5-T6, T6-T7 and T7-T8. MD TANNER Ellis/jeff01/17/2015 17:09: / 01/17/2015 22:35:10 cc:Dr. Sandra Brunner This document has been electronically Signed by: JOSIAH THORPE On: Jan 18 20159:28A ABDOMINAL PAIN BACK PAIN Result Amended on 2015-01-18 at 09:28:40. Previous status was [place]. ABDOMINAL PAIN BACK PAIN [id number]:07:00 CT ABD/PEL W CONTRAST PACs Image DATE OF EXAM: Jan 17 2015 [id number] ABD/PELV W CONTRAST : RADIOLOGY REPORT DATE [...] On: DATE OF EXAM: Jan 17 2015 [id number] ABD/PELV W CONTRAST : RADIOLOGY REPORT DATE [...] on 2015-01-17 at 14:07:57. Previous status was [place]. ABDOMINAL PAIN BACK PAIN [id number]:59:00 Result Normal Range Units MPV H 11.3 7.3-10.4 FL [id number]:53:00 Abdomen 2 View PACs Image DATE OF [...] on 2015-01-16 at 09:53:40. Previous status was [place]. ABDOMINAL PAIN BACK PAIN LUMBAR SPINE XRAY - 5V PACs Image DATE OF EXAM: Jan 15 2015 RAD 1050-LUMBAR SPINE XRAY-5 VIEW : RADIOLOGY REPORT DATE OF SERVICE: 01/15/15 HISTORY: Back pain LUMBAR SPINE 5 [id number] HOURS Lumbar vertebral body height and alignment [...] No acute process identified. MD TANNER Ellis/lisha01/16/2015 08:02: / 01/16/2015 08:17:04 cc:Dr. Sandra Brunner This document has been electronically Signed by: On: DATE OF EXAM: Jan 15 2015 RAD 1050-LUMBAR SPINE XRAY-5 VIEW : RADIOLOGY REPORT DATE OF SERVICE: 01/15/15 HISTORY: Back pain LUMBAR SPINE 5 [id number] HOURS Lumbar vertebral body height and alignment [...] No acute process identified. MD TANNER Ellis/kaylee 08:02:00 / 01/16/2015 08:17:04 cc:Dr. Sandra Brunner This document has been electronically Signed by: JOSIAH THORPE On: Jan 16 20159:53A ABDOMINAL PAIN BACK PAIN Result Amended on 2015-01-16 at 09:53:46. Previous status was [place]. ABDOMINAL PAIN BACK PAIN :44:00 Result Normal Range Units MPV H 11.3 7.3-10.4 FL History of procedures No procedures recorded for this patient visit. Functional status Functional Status Finding Observation Time Hearing Prob Loc none :48 Vision Problems yes :48 Vision Correct Dev glasses :48 Ambulation Asst Dev none :48 Range of Motion full :30 Muscle Strength RUE 5 ROM full resist :30 Muscle Strength RLE 5 ROM full resist : Muscle Strength LUE 5 ROM full resist :30 Muscle Strength LLE 5 ROM full resist :30 Transfers assist x 1 :30 Ambulation in room :30 Balance steady :30 Bathing Assistance none :48 Eating Assistance none :48 Dressing Assistance none :48 Toileting Assistance none :48 Transfer Assistance minimal :48 Decline Slf Care/Mob yes (consult PT) :48 Phys Cond Stable yes :48 Nutrition normal :30 Diet ADA specify calorie Comment: 1800 :30 Oral Cavity moist :30 Teeth missing (specify) Comment: Several, scattered 47-05-332889:30 Dental Hygiene good 38-96-113485:30 Abdomen Appearance obese 20-11-775828:30 Abdomen soft :30 Bowel Sounds present :30 NG Tube no :30 Feeding Tube none 25-77-102156:30 Pinto no :30 Ostomy no :30 Stool constipation Comment: Per patient report :30 Color normal :00 Consistency firm :00 Urination normal : Urine Clarity clear :48 Urine Color yellow :48 Quality sym/unlabored : Cough absent : Secretions no : Breath Sounds RUL clear : Breath Sounds RML clear : Breath Sounds RLL clear : Breath Sounds LARISA clear : Breath Sounds LLL clear :30 Airway natural : Chest Tube no : Oxygen no :52 Oxygen Mask Type nasal cannula :18 Oxygen Flow Rate 1 L :30 C-PAP no :30 BI-PAP no : Temp >100.4 no : Temp <96.8 no :30 Chills with rigors no : HR > 90bpm no : Respirations > 20 no : Systolic <90 no : headache stiff neck no : WBC > 58639 no : WBC < 4000 no :30 Rapid Resp no :30 IV Site Location Left FA :02 IV Type peripheral 55-41-662604:02 IV Site Information discontinued :02 IV Site Michael 20 55-17-990865:26 IV Site Appearance WNL : IV Site Color clear : IV Site Patent yes : Dressing Changed no (explain) Comment: dressing remains clean, dry and intact at this time :26 Dressing Type occlusive : Nursing Note Patient discharged to home at this itme. Her vital signs remained stable and her IV site was discontinued before discharge. She was taken down via wheelchair to her vehicle and she insisted on driving herself home. The patient had not had narcotic medications recently. She denied questions or concerns on discharge. 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
--- OUTSIDE RECORDS SUMMARY | 2018-10-10 10:37 | XMS REPORT | Clinical Summary ---
Author Author Admin, CARMELO Grajeda [facility] Address Unknown Phone Unavailable Allergies, Adverse Reactions, Alerts Allergy Name Reaction Description Start Date Severity Status Provider No Known Allergies Maliheh Ziglari PASTORAL ASSISTANT Conditions or Problems Problem Name Problem Code [...] TYPE II, UNCONTROLLED 250.02 Active Maliheh Sridharglari PASTORAL ASSISTANT Diabetes mellitus without mention of complication, type II or unspecified type, uncontrolled NEUROGENIC BLADDER 596.54 Active Maliheh Ziglari PASTORAL ASSISTANT Neurogenic bladder NOS INCOMPLETE BLADDER EMPTYING 788.21 Active Maliheh Ziglari PASTORAL ASSISTANT Incomplete bladder emptying Medication List Medication Instructions Start Date Stop Date Generic Name NDC Status Provider Patient Instruction SHAUNA CONTOUR TEST STRP check blood sugars 4x/day GLUCOSE BLOOD 26880089972 Active Maliheh Ziglari PASTORAL ASSISTANT Active TRAZODONE HCL 50 MG TABS take at bedtime TRAZODONE HCL 44270262501 Active Rossi Mathews LPN Active CYMBALTA 30 MG CPEP Take one by mouth daily DULOXETINE HCL 40518979910 No Longer Active Rossi Mathews PROGRAM ADVISOR Active CYMBALTA 60 MG CPEP Take one by mouth daily DULOXETINE HCL 84324051066 Active Rossi Mathews PROGRAM ADVISOR Active COLACE 100 MG CAPS by mouth twice a day DOCUSATE SODIUM 82347263945 Active Rossi Mathews PROGRAM ADVISOR Active MIRALAX POWD 17gm in h2o daily as directed POLYETHYLENE GLYCOL 3350 59876511290 Active Rossi Mathews PROGRAM ADVISOR Active ACETAMINOPHEN 325 MG TABS 2 every 6 hrs prn ACETAMINOPHEN 38540316769 Active Rossi Reid GRIFFITHN Active [facility] MILK OF MAGNESIA 1200 MG/15ML SUSP 30 cc prn constipation MAGNESIUM HYDROXIDE 31755382260 Active Rossi Mathews PROGRAM ADVISOR Active CINNAMON 500 MG TABS by mouth twice a day CINNAMON 18658679461 Active Rossi Reid GRIFFITHN Active LEVEMIR 100 UNIT/ML SOLN 40u every hs INSULIN DETEMIR 32187665118 Active Rossi Reid GRIFFITHN Active ZOCOR 20 MG TABS take at bedtime SIMVASTATIN 23801025819 Active Rossi Reid GRIFFITHN Active ZINC TABS Take one by mouth daily ZINC TABS 02194509263 Active Rossi Reid GRIFFITHN Active CALCIUM + D 600-200 MG-UNIT TABS Take one by mouth daily CALCIUM CARBONATE-VITAMIN D 18301848669 Active Rossi Reid GRIFFITHN Active [facility] FOLIC ACID 400 MCG TABS Take one by mouth daily FOLIC ACID 32058332676 Active Rossi Reid GRIFFITHN Active REMERON 15 MG TABS take at bedtime MIRTAZAPINE 56387513915 Active Rossi Reid GRIFFITHN Active ADULT ASPIRIN EC LOW STRENGTH 81 MG TBEC Take one by mouth daily ASPIRIN 13722576837 Active Orssi Reid GRIFFITHN Active DIABETA 5 MG TABS by mouth twice a day GLYBURIDE 46727336198 Active Dale Jenyer Active TRAZODONE HCL 100 MG TABS take 1-2 tabs at bedtime as needed TRAZODONE HCL 42070658904 Active Dale Brinkmeyer Active JANUMET 50-500 MG TABS by mouth twice a day SITAGLIPTIN-METFORMIN HCL 01999688923 Active Dale Brinkmeyer Active GABAPENTIN 100 MG CAPS take 2 tabs in the morning, 1 tab at lunch and 2 tabs at bedtime GABAPENTIN 47182923596 Active Dale Brinkmeyer Active AMITRIPTYLINE HCL 75 MG TABS Take one by mouth daily AMITRIPTYLINE HCL 31240749791 Active Dale Brinkmeyer Active NOVOLOG 100 UNIT/ML SOLN give 14 units subq three times daily INSULIN ASPART 21361681100 Active Dale Brinkmeyer Active FUROSEMIDE 40 MG TABS by mouth twice a day FUROSEMIDE 25700974749 Active Dale Brinkmeyer Active METOPROLOL TARTRATE 25 MG TABS by mouth twice a day METOPROLOL TARTRATE 07951996090 Active Dale Brinkmeyer Active ALPRAZOLAM 0.25 MG TABS Take one by mouth 3 times daily, morning, afternoon and evening.] ALPRAZOLAM 10824572946 Active Dale Brinkmeyer Active LISINOPRIL 10 MG TABS Take one by mouth daily LISINOPRIL 20323399610 Active Dale Brinkmeyer Active CYMBALTA 30 MG CPEP Take one by mouth daily CYMBALTA 30 MG CPEP 886546 DULOXETINE HCL Inactive Encounters Code Encounter Date Provider Facility CPT-19034 Level 3 Est. Patient 17:20:16 CDT Rena Regalado [facility] CPT-29930 Level 5 Est. Patient 09:44:15 CDT Rena Regalado 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
--- OUTSIDE RECORDS SUMMARY | 2018-10-10 10:38 | XMS REPORT ---
Author Author [facility] Medical Staff Organization [facility] Address [address] [id number] Phone [phone] Care Team Providers Care [employer] Specialist Name Role Phone SANDRA TORRES MD [phone] Summary purpose TRANSITION OF CARE AUTO GENERATION [...] capsule 500 mg oral 1 Daily Current cipfzig-qizyuovje-elziwb-zinc tablet 1000 mg oral 1 Daily Current [...] tests and/or laboratory data RESULTS Routine Urinalysis [id number]:45:00 Result Normal Range Units Color YELLOW Clarity Slighty cloudy Specific [place] 1.020 1.003-1.035 pH 5.0 4.5-8.0 Glucose 3+ Bilirubin NEGATIVE Ketones NEGATIVE Protein 1+ Urobilinogen 0.2 0-0.2 E.U./dL Nitrites NEGATIVE Blood TRACE Leukocytes NEGATIVE WBCs 0-5 RBCs 5-10 Squamous Epithelial Few Bacteria Occasional Mucous 1+ Routine Cultures [id number]:53:00 Urine Culture Plate Date and Time 09/13/2014 19:27 SourceURINE CULTURE REPORT No Growth After 24 Hours Release Date/Time: 09/14/2014 07:46 CULTURE REPORT 10,000 colonies/ml Mixed Gram Pos Courtney Release Date/Time: 09/15/2014 07:26 Chemistry [id number]:15:00 Result Normal Range Units Sodium 140 134-145 mEq/l Potassium 4.1 3.5-5.1 mEq/l Chloride 105 98-107 mEq/l CO2 24.7 22-28 mEq/l Glucose H 123 70-105 mg/dl BUN L 6 7-18 mg/dl Creatinine 0.83 0.6-1.0 mg/dl Calcium 9.2 8.4-10.2 mg/dl Osmolality L 278.4 280-300 mOsm/L Anion GAP 10.3 8-16 BUN/Creatinine Ratio L 7.2 10-20 Estimated GFR 71 >=60 mL/min/1.7 [id number]:18:00 Result Normal Range Units Sodium 143 134-145 mEq/l Potassium L 3.4 3.5-5.1 mEq/l Chloride 106 98-107 mEq/l CO2 H 29.8 22-28 mEq/l Glucose H 108 70-105 mg/dl BUN L 5 7-18 mg/dl Creatinine 0.94 0.6-1.0 mg/dl Calcium 9.0 8.4-10.2 mg/dl Osmolality 282.8 280-300 mOsm/L Anion GAP L 7.2 8-16 BUN/Creatinine Ratio L 5.3 10-20 Estimated GFR 61 >=60 mL/min/1.7 [id number]:38:00 Result Normal Range Units Sodium 143 134-145 [...] pg/ml Estimated GFR L 54 >=60 mL/min/1.7 42-67-001489:10:00 Result Normal Range Units Sodium 141 134-145 [...] 10.1 10-20 Estimated GFR 65 >=60 mL/min/1.7 42-84-983936:10:00 Result Normal Range Units TP - Total [...] 13.3 10-20 Estimated GFR 65 >=60 mL/min/1.7 03-16-655593:54:00 Result Normal Range Units Sodium 145 134-145 [...] Range Units Glucose H@ 447 70-105 mg/dl 31-56-668766:55:00 Result Normal Range Units Sodium 135 134-145 mEq/l Potassium H 5.2 3.5-5.1 mEq/l Chloride 100 98-107 mEq/l CO2 23.0 22-28 mEq/l Glucose H@ 454 70-105 mg/dl BUN H 29 7-18 mg/dl Creatinine H 1.29 0.6-1.0 mg/dl Calcium 8.8 8.4-10.2 mg/dl Osmolality 295.7 280-300 mOsm/L Anion GAP 12.0 8-16 BUN/Creatinine Ratio H 22.5 10-20 Estimated GFR L 43 >=60 mL/min/1.7 [id number]:50:00 Result Normal Range Units Sodium 137 134-145 [...] 130-400 103/uL MPV H 11.5 7.3-10.4 FL 57-55-165097:38:00 Result Normal Range Units WBC 5.1 4.8-10.8 103/uL RBC 5.0 4.2-5.4 106/uL HGB 13.7 12.0-16.0 g/dl HCT 39.8 36.9-47.0 % MCV L 79.9 81-99 FL MCH 27.5 27-31 pg MCHC 34.4 33-37 g/dl RDW 13.9 11.5-15.5 % PLT 132 130-400 103/uL MPV H 11.6 7.3-10.4 FL Neutro % H 75.2 40-70 % Lymph % L 14.9 20-40 % [place] % 6.5 0-10.0 % Eos % 2.4 0-7.0 % Baso % 1.0 0-2 % Neutro # 3.8 1.5-7.5 103/uL Lymph # L 0.8 0.9-4.0 103/uL [place] # 0.3 0-0.8 103/uL Eos # 0.1 0-0.6 103/uL Baso # 0.1 0-0.1 103/uL [id number]:10:00 Result Normal Range Units WBC 4.8 4.8-10.8 103/uL RBC 4.4 4.2-5.4 106/uL HGB 12.2 12.0-16.0 g/dl HCT L 35.1 36.9-47.0 % MCV L 79.1 81-99 FL MCH 27.5 27-31 pg MCHC 34.8 33-37 g/dl RDW 13.6 11.5-15.5 % PLT 139 130-400 103/uL MPV H 11.3 7.3-10.4 FL Neutro % H 72.1 40-70 % Lymph % L 15.7 20-40 % [place] % 8.5 0-10.0 % Eos % 2.7 0-7.0 % Baso % 1.0 0-2 % Neutro # 3.5 1.5-7.5 103/uL Lymph # L 0.8 0.9-4.0 103/uL [place] # 0.4 0-0.8 103/uL Eos # 0.1 0-0.6 103/uL Baso # 0.1 0-0.1 103/uL [id number]:35:00 Result Normal Range Units WBC 7.8 4.8-10.8 103/uL RBC 4.9 4.2-5.4 106/uL HGB 13.2 12.0-16.0 g/dl HCT 39.3 36.9-47.0 % MCV L 80.4 81-99 FL MCH 27.0 27-31 pg MCHC 33.6 33-37 g/dl RDW 13.9 11.5-15.5 % PLT 136 130-400 103/uL MPV H 11.5 7.3-10.4 FL Neutro % H 80.8 40-70 % Lymph % L 9.5 20-40 % [place] % 6.6 0-10.0 % Eos % 2.2 0-7.0 % Baso % 0.9 0-2 % Neutro # 6.3 1.5-7.5 103/uL Lymph # L 0.7 0.9-4.0 103/uL [place] # 0.5 0-0.8 103/uL Eos # 0.2 0-0.6 103/uL Baso # 0.1 0-0.1 103/uL [id number]:20:00 Result Normal Range Units WBC 6.0 4.8-10.8 103/uL RBC 5.0 4.2-5.4 106/uL HGB 13.8 12.0-16.0 g/dl HCT 39.6 36.9-47.0 % MCV L 78.7 81-99 FL MCH 27.4 27-31 pg MCHC 34.8 33-37 g/dl RDW 13.6 11.5-15.5 % PLT 151 130-400 103/uL MPV H 11.5 7.3-10.4 FL Neutro % H 72.2 40-70 % Lymph % L 15.0 20-40 % [place] % 8.3 0-10.0 % Eos % 2.8 0-7.0 % Baso % 1.7 0-2 % Neutro # 4.3 1.5-7.5 103/uL Lymph # 0.9 0.9-4.0 103/uL [place] # 0.5 0-0.8 103/uL Eos # 0.2 0-0.6 103/uL Baso # 0.1 0-0.1 103/uL [id number]:45:00 Result Normal Range Units WBC 6.2 4.8-10.8 103/uL RBC 4.7 4.2-5.4 106/uL HGB 13.2 12.0-16.0 g/dl HCT 37.4 36.9-47.0 % MCV L 79.1 81-99 FL MCH 27.9 27-31 pg MCHC 35.3 33-37 g/dl RDW 13.3 11.5-15.5 % PLT 133 130-400 103/uL MPV H 12.1 7.3-10.4 FL 10-56-954548:54:00 Result Normal Range Units WBC 5.2 4.8-10.8 103/uL RBC 5.0 4.2-5.4 106/uL HGB 13.8 12.0-16.0 g/dl HCT 38.9 36.9-47.0 % MCV L 77.3 81-99 FL MCH 27.4 27-31 pg MCHC 35.5 33-37 g/dl RDW 13.1 11.5-15.5 % PLT 153 130-400 103/uL MPV H 11.7 7.3-10.4 FL 27-49-503730:10:00 Result Normal Range Units WBC 5.2 4.8-10.8 103/uL RBC 4.8 4.2-5.4 106/uL HGB 13.1 12.0-16.0 g/dl HCT 37.0 36.9-47.0 % MCV L 77.7 81-99 FL MCH 27.5 27-31 pg MCHC 35.4 33-37 g/dl RDW 12.9 11.5-15.5 % PLT 149 130-400 103/uL MPV H 11.8 7.3-10.4 FL Neutro % 65.9 40-70 % Lymph % 21.4 20-40 % [place] % 8.0 0-10.0 % Eos % 3.6 0-7.0 % Baso % 1.1 0-2 % Neutro # 3.5 1.5-7.5 103/uL Lymph # 1.1 0.9-4.0 103/uL [place] # 0.4 0-0.8 103/uL Eos # 0.2 0-0.6 103/uL Baso # 0.1 0-0.1 103/uL [id number]:45:00 Result Normal Range Units WBC 7.3 4.8-10.8 103/uL RBC 4.9 4.2-5.4 106/uL HGB 13.4 12.0-16.0 g/dl HCT 38.5 36.9-47.0 % MCV L 78.9 81-99 FL MCH 27.5 27-31 pg MCHC 34.8 33-37 g/dl RDW 13.5 11.5-15.5 % PLT 154 130-400 103/uL MPV H 11.5 7.3-10.4 FL Segs 65 40-70 % Lymphs 31 20-40 % [place] 3 0-10 % Eos 1 0-7 % 52-77-349000:05:00 Result Normal Range Units WBC H 13.8 4.8-10.8 103/uL RBC 5.1 4.2-5.4 106/uL HGB 14.0 12.0-16.0 g/dl HCT 39.1 36.9-47.0 % MCV L 77.3 81-99 FL MCH 27.7 27-31 pg MCHC 35.8 33-37 g/dl RDW 12.9 11.5-15.5 % PLT 195 130-400 103/uL MPV H 11.7 7.3-10.4 FL Neutro % H 88.9 40-70 % Lymph % L 6.1 20-40 % [place] % 4.9 0-10.0 % Eos % 0.0 0-7.0 % Baso % 0.1 0-2 % Neutro # H 12.3 1.5-7.5 103/uL Lymph # L 0.8 0.9-4.0 103/uL [place] # 0.7 0-0.8 103/uL Eos # 0.0 0-0.6 103/uL Baso # 0.0 0-0.1 103/uL [id number]:55:00 Result Normal Range Units WBC 6.9 4.8-10.8 [...] % Lymph % L 13.6 20-40 % [place] % 6.5 0-10.0 % Eos % 1.1 0-7.0 % Baso % 1.4 0-2 % Neutro # 6.6 1.5-7.5 103/uL Lymph # 1.2 0.9-4.0 103/uL [place] # 0.6 0-0.8 103/uL Eos # 0.1 0-0.6 103/uL Baso # 0.1 0-0.1 103/uL [facility] 12-15-642241:10:00 Result Normal Range Units Occult Blood 2 Negative Negative Special Chemistry :45:00 Result Normal Range Units Hemoglobin A1C H 11.3 4.5-6.2 % Reference Lab ([facility]) 95-34-401720:38:00 Result Normal Range Units D-Dimer H@ 2250 0-400 ng/ml Body Fluid 04-54-666255:45:00 Result Normal Range Units pH 5.0 4.5-8.0 Cardiac 73-22-441490:30:00 Result Normal Range Units Troponin I < [...] patient history should be interpreted with caution. 08-83-618571:30:00 Result Normal Range Units Troponin I < [...] interpreted with caution. Hematology - Other (Misc) 83-92-028210:50:00 Result Normal Range Units Sed Rate 4 [...] changes. IMPRESSION: As above. Vanessa Ignacio DO /il 10/03/2014 08:47:00 / 10/03/2014 08:55:01 cc:Dr. Sandra [...] changes. IMPRESSION: As above. Vanessa Ignacio DO [facility] 10/03/2014 08:47:00 / 10/03/2014 08:55:01 cc:Dr. Sandra Torres This document has been electronically Signed by: VANESSA IGNACIO DO On: Oct 04 20148:28A Result Amended on 2014-10-04 at 08:28:40. Previous status was [place]. 96-76-851752:18:00 Result Normal Range Units MPV H 11.5 7.3-10.4 FL 13-90-713535:38:00 Result Normal Range Units MPV H 11.6 7.3-10.4 FL 17-84-474665:33:00 Chest X-Ray - 2 View PACs Image [...] on 2014-09-30 at 14:33:32. Previous status was [place]. 62-69-075999:10:00 Result Normal Range Units MPV H 11.3 7.3-10.4 FL 16-41-024327:35:00 Result Normal Range Units MPV H 11.5 7.3-10.4 FL 99-79-386169:20:00 Result Normal Range Units MPV H 11.5 7.3-10.4 FL 12-39-691751:37:00 GASTRIC EMPTYING STUDY PACs Image DATE OF EXAM: 2013 [id number] EMPTYING STUDY : RADIOLOGY REPORT DATE OF SERVICE: 09/24/14 HISTORY: Abdominal pain RADIONUCLIDE GASTRIC EMPTYING STUDY SOLID [id number] HOURS Test meal consisting of a scrambled egg was labeled with 1 mCi 99m technetium sulfur colloid. Following ingestion of the test meal, abdominal imaging was performed. Time to half emptying of the stomach is 57.15 minutes, slightly faster than average normal range of 90-120 minutes. IMPRESSION: Fairly rapid gastric emptying. MD TANNER Ellis/il09/24/2014 13:34:00 / 09/24/2014 14:39:39 cc:Dr. Sandra Torres This document has been electronically Signed by: On: DATE OF EXAM: 2013 [id number] EMPTYING STUDY : RADIOLOGY REPORT DATE OF SERVICE: 09/24/14 HISTORY: Abdominal pain RADIONUCLIDE GASTRIC EMPTYING STUDY SOLID [id number] HOURS Test meal consisting of a scrambled egg was labeled with 1 mCi 99m technetium sulfur colloid. Following ingestion of the test meal, abdominal imaging was performed. Time to half emptying of the stomach is 57.15 minutes, slightly faster than average normal range of 90-120 minutes. IMPRESSION: Fairly rapid gastric emptying. MD TANNER Ellis/il09/24/2014 13:34:00 / 09/24/2014 14:39:39 cc:Dr. Sandra Torres This document has been electronically Signed by: DIPESH THORPE On: 20133:37P Result Amended on 2014-09-24 at 15:37:32. Previous status was [place]. 76-69-932303:18:00 Abdomen 2 View PACs Image DATE OF [...] on 2014-09-23 at 12:18:55. Previous status was [place]. 27-74-999744:45:00 Result Normal Range Units MPV H 12.1 7.3-10.4 FL 51-12-822851:42:00 Gallbladder Sono PACs Image DATE OF EXAM: Sep 18 2014 [id number] SONO : RADIOLOGY REPORT DATE OF SERVICE:09/18/2014 [...] On: DATE OF EXAM: Sep 18 2014 [id number] [id number] : RADIOLOGY REPORT DATE OF SERVICE:09/18/2014 [...] on 2014-09-19 at 14:43:00. Previous status was [place]. 84-19-962728:54:00 Result Normal Range Units MPV H 11.7 7.3-10.4 FL 53-06-343892:10:00 Result Normal Range Units MPV H 11.8 7.3-10.4 FL 82-40-314193:45:00 Result Normal Range Units MPV H 11.5 7.3-10.4 FL 39-65-257430:05:00 Result Normal Range Units MPV H 11.7 7.3-10.4 FL 93-32-448273:21:00 CT ABD/PEL W CONTRAST PACs Image DATE OF EXAM: Sep 12 2014 [id number] ABD/PELV W CONTRAST : RADIOLOGY REPORT DATE [...] On: DATE OF EXAM: Sep 12 2014 [id number] ABD/PELV W CONTRAST : RADIOLOGY REPORT DATE [...] on 09/12/2014 at 1750 hours. MD TANNER Ellis/il09/13/2014 08:16:00 / 09/13/2014 08:39:32 cc:Dr. Sandra Torres This document has been electronically Signed by: DIPESH THORPE On: Sep 13:21P Result Amended on 2014-09-13 at 13:21:41. Previous status was [place]. 52-23-182277:55:00 Result Normal Range Units MPV H 12.5 7.3-10.4 FL 00-88-746091:50:00 Result Normal Range Units MPV H 11.6 7.3-10.4 FL History of procedures No procedures recorded for this patient visit. Functional status Functional Status Finding Observation Time Hearing Prob Loc none :05 Vision Problems yes :05 Vision Correct Dev glasses 35-35-251060:05 Ambulation Asst Dev none :05 Range of Motion full 07-52-186223:00 Muscle Strength RUE 5 ROM full resist 44-49-674295:00 Muscle Strength RLE 5 ROM full resist 89-94-346113:00 Muscle Strength LUE 5 ROM full resist 70-96-127255:00 Muscle Strength LLE 5 ROM full resist 91-49-610666:00 Transfers assist x 1 08-37-524440:00 Ambulation in room 22-97-101699:00 Balance steady :00 Bathing Assistance none 81-14-090562:05 Eating Assistance none 23-11-674585:10 Dressing Assistance none :05 Toileting Assistance none [...] well :00 Neurological no :00 Psychological no 42-46-589576:00 Physical no 76-38-169573:00 Hearing no :00 Leaf Conditioner Helper Needed no :00 Sign Language no :00 Emotional yes :00 Vision yes :00 Laguage no :00 Financial no :00 Vital signs Type Value Date Respiration Rate 16breaths per minute :47 Pulse 70beats per minute :47 Oxygen Saturation 95% :47 BP Systolic 168mmHg :47 BP Diastolic 73mmHg :47 Temperature 99.2F :47 Height 67.5inches 01-44-091683:39 Weight 251.1LB 06-15-024085:31 Social history Type Value Smoking Status FORMER [...] n/a Diet Explained yes Follow up appt already scheduled Follow Up Appt D/T 7-10 days
[2018-10-10] MEDS ORDERED: MIDAZOLAM 2 MG/2 ML (VERSED) VIAL IV ONE (10:45)
[2018-10-10] MEDS ORDERED: SEVOFLURANE (ULTANE) 15 ML INHAL SOLN ONE ×2 (10:49→13:44)
[2018-10-10] MEDS ORDERED: ROCURONIUM 10 MG/ML 5 ML SYRINGE IV ONE (10:49)
[2018-10-10] MEDS ORDERED: ONDANSETRON 4 MG/2 ML (SDV) Z0FRAN ONE (10:49)
[2018-10-10] MEDS ORDERED: LIDOCAINE PF 2% 5 ML (XYLOCAINE) VIAL ONE (10:49)
[2018-10-10] MEDS ORDERED: proPOfol 200 MG/20 ML (DIPRIVAN) VIAL IV ONE ×2 (10:49→13:09)
[2018-10-10] MEDS ORDERED: PROPOFOL INJECTION 50 ML IV ONE ×2 (10:49→12:20)
[2018-10-10] MEDS ORDERED: fentaNYL INJECTION 250 MCG/5 ML AMP ONE (10:50)
[2018-10-10] MEDS ORDERED: MIDAZOLAM 2 MG/2 ML (VERSED) VIAL ONE (10:50)
[2018-10-10] MEDS ORDERED: SUCCINYLCHOLINE INJ 100 MG/5 ML SYR ONE (10:51)
[2018-10-10] MEDS ORDERED: BACITRACIN 100,000 UNIT/NS 1000 ML POUR BOTTLE IR ONE ×2 (11:00)
[2018-10-10 11:22] LABS: BASOPHILS # (AUTO) 0.1 10^3/uL (0.0-0.1); BASOPHILS % (AUTO) 1 % (0-10); EOSINOPHILS # (AUTO) 0.2 10^3/uL (0.0-0.3); EOSINOPHILS % (AUTO) 3 % (0-10); HEMATOCRIT 34 % (35-52); HEMOGLOBIN 11.6 G/DL (11.5-16.0); LYMPHOCYTES % (AUTO) 16 % (12-44); MEAN CORPUSCULAR HEMOGLOBIN 28 PG (25-34); MEAN CORPUSCULAR HGB CONC 34 G/DL (32-36); MEAN CORPUSCULAR VOLUME 82 FL (80-99); MEAN PLATELET VOLUME 11.2 FL (7.4-10.4); MONOCYTES # (AUTO) 0.5 X 10^3 (0.0-1.0); MONOCYTES % (AUTO) 8 % (0-12); NEUTROPHILS # (AUTO) 4.5 X 10^3 (1.8-7.8); NEUTROPHILS % (AUTO) 72 % (42-75); PLATELET COUNT 168 10^3/uL (130-400); RED BLOOD COUNT 4.14 10^6/uL (4.35-5.85); RED CELL DISTRIBUTION WIDTH 14.1 % (10.0-14.5); WHITE BLOOD COUNT 6.2 10^3/uL (4.3-11.0)
[2018-10-10] MEDS ORDERED: ceFAZolin 2 GM IV Premixed 50 ML ONE (11:23)
[2018-10-10] MEDS: LACTATED RINGERS 1,000 ML IV PRN ×2 (11:25→13:15)
[2018-10-10 11:29] LABS: BUN/CREATININE RATIO 21; CALCIUM 9.6 MG/DL (8.5-10.1); CARBON DIOXIDE 23 MMOL/L (21-32); CHLORIDE 108 MMOL/L (98-107); CREATININE SERUM 0.89 MG/DL (0.60-1.30); GFR ESTIMATED > 60; GLUCOSE 194 MG/DL (70-105); POTASSIUM 4.5 MMOL/L (3.6-5.0); SODIUM 140 MMOL/L (135-145)
[2018-10-10] MEDS ORDERED: ceFAZolin 2 GM/50 ML PRE-MIX IVPB IV ONE (11:30)
[2018-10-10] MEDS ORDERED: ceFAZolin 2 GM IV Premixed 50 ML IV ONE (11:45)
[2018-10-10] MEDS ORDERED: fentaNYL INJECTION 100 MCG/2 ML AMP ONE (13:47)
[2018-10-10] MEDS ORDERED: ACETAMINOPHEN 325 MG TABLET PO PRN (14:15)
[2018-10-10] MEDS ORDERED: ONDANSETRON 4 MG/2 ML (SDV) Z0FRAN IVP PRN (14:15)
[2018-10-10] MEDS ORDERED: PROMETHAZINE 25 MG (PHENERGAN) TAB PO PRN (14:15)
[2018-10-10] MEDS ORDERED: BISACODYL 10 MG SUPP (DULCOLAX) PR PRN (14:15)
[2018-10-10] MEDS ORDERED: BISACODYL 5 MG (DULCOLAX) TABLET PO PRN (14:15)
[2018-10-10] MEDS ORDERED: morphine INJ 10 MG/ML 1ML (SYR OR VIAL) IVP ONE (14:15)
[2018-10-10] MEDS ORDERED: ONDANSETRON 4 MG/2 ML (SDV) Z0FRAN IV PRN (14:15)
[2018-10-10] MEDS ORDERED: HYDROmorphone 2 MG/ML VIAL (DILAUDID) IV ONE (14:15)
[2018-10-10] MEDS ORDERED: morphine INJ 10 MG/ML 1ML (SYR OR VIAL) ONE (14:23)
[2018-10-10] MEDS ORDERED: HYDROmorphone 2 MG/ML VIAL (DILAUDID) ONE (14:33)
--- NOTE | 2018-10-10 16:00 | Diagnostic Imaging Report ---
INDICATION: Fluoroscopy for ACDF. FINDINGS: Fluoroscopy was provided in the OR during ACDF. 21 seconds of fluoroscopy was utilized. Images demonstrate an anterior plate and screws transfixing the lower cervical spine. IMPRESSION: Fluoroscopy during ACDF. Dictated by: Dictated on workstation # [id number]
[2018-10-10] MEDS ORDERED: morphine INJ 4 MG/ML 1 ML (VIAL/SYRINGE) ONE (16:03)
[2018-10-10] MEDS: morphine INJ 4 MG/ML 1 ML (VIAL/SYRINGE) IVP PRN ×4 (16:07→23:34)
[2018-10-10] MEDS ORDERED: MECLIZINE HCL 12.5 MG PO PRN (17:30)
[2018-10-10] MEDS ORDERED: NON-FORMULARY MEDICATION 1 EA EA (Exenatide Microspheres (Bydureon Bcise) 2 MG) SQ SCH (17:30)
[2018-10-10] MEDS ORDERED: NS 1000 ML IV BAG IV ONE (17:30)
[2018-10-10] MEDS: NS IV 1000 ML 1,000 ML IV SCH (18:46)
[2018-10-10] MEDS ORDERED: MECLIZINE 25 MG (ANTIVERT) TAB PO PRN (19:00)
[2018-10-10] MEDS: FAMOTIDINE 20 MG (PEPCID) TABLET PO SCH (19:29)
[2018-10-10] MEDS: FAMOTIDINE 20MG/2ML IV (PEPCID) IV SCH (19:30)
[2018-10-10] MEDS: ceFAZolin INJECTION 1,000 MG in NS (IVPB) 50 ML IV SCH (19:30)
[2018-10-10] MEDS ORDERED: QUETIAPINE FUMARATE 25 MG PO SCH (21:00)
[2018-10-10] MEDS ORDERED: INSULIN DEGLUDEC 40 UNIT SQ SCH (21:00)
[2018-10-10] MEDS ORDERED: inSUlin DETERMIR 1 UNIT/0.01 ML (LEVEMIR) CHARGE PER UNIT SQ SCH (21:00)
[2018-10-10] MEDS ORDERED: DIVALPROEX SODIUM 250 MG PO SCH (21:00)
[2018-10-10] MEDS ORDERED: DEXAMETHASONE 4 MG/ML SDV (DECADRON) IV ONE (21:30)
[2018-10-10] MEDS: ATORVASTATIN 80 MG (LIPITOR) TABLET PO SCH (21:47)
[2018-10-10] MEDS: QUEtiapine 25 MG (SEROquel) TAB IMMEDIATE RELEASE PO SCH (21:48)
[2018-10-10] MEDS: PANTOPRAZOLE 40 MG (PROTONIX) TAB PO SCH (21:48)
[2018-10-10] MEDS: DIVALPROEX 250 MG DELAYED RELEASE (DEPAKOTE) TAB PO SCH (21:48)
[2018-10-10] MEDS: traZODone 100 MG (DESYREL) TAB PO SCH (21:48)
[2018-10-10] MEDS: PREGABALIN 25 MG (LYRICA) NON-STOCK STRENGTH PO SCH (21:49)
[2018-10-10] MEDS: CYCLOBENZAPRINE 10 MG (FLEXERIL) TAB PO PRN (23:34)
[2018-10-11] VITALS (13 sets, daily range): BP systolic 115–151; BP diastolic 70–99
--- NOTE | 2018-10-11 00:20 | OPERATIVE REPORT ---
DATE OF SERVICE: 10/10/2018 SURGEON: Villa Schwartz DO CIRCULATOR: CORNELIO Mei. This is a medically necessary procedure. Assistance was necessary for retraction of vital neurovascular structures. Without an press assistant, the procedure would not be possible. PREOPERATIVE DIAGNOSES: 1. Cervical stenosis (bony, foraminal, central). 2. Cervical radiculopathy. POSTOPERATIVE DIAGNOSES: 1. Cervical stenosis (bony, foraminal, central). 2. Cervical radiculopathy. PROCEDURE PERFORMED: 1. C4-5, C5-6, C6-7 anterior cervical diskectomy and fusion. 2. C5 corpectomy (100%). 3. C4-5, C5-6, C6-C7 anterior instrumentation. 4. Application of titanium corpectomy cage C4-C6. 5. Application of titanium cage C6-C7. 6. Use of human allograft for spine. 7. Use of local bone autograft. COMPLICATIONS: None. SPECIMEN SENT: None. DRAIN PLACED: Vaibhav-Sheikh. ESTIMATED BLOOD LOSS: 50 mL. ANESTHESIA: General endotracheal anesthesia with local anesthetic. HISTORY OF PRESENT ILLNESS: The patient is a very pleasant 63-year-old female who presented to me with multilevel congenital stenosis. She had severe unrelenting left upper extremity pain. She failed conservative measures and did wish to proceed with operative intervention. She understood the risks and benefits. DESCRIPTION OF PROCEDURE: The patient was identified by name on wrist band in the preoperative holding area. Her operative site was signed, consent was signed. SCDs were placed. Dermabond was hooked up and antibiotics were started. She was taken to the operating room theater and placed under general endotracheal tube anesthesia and then transferred to the operating room table in the supine position. Traction was placed in a downward fashion bilaterally on her shoulders to allow access to the cervical spine. She was then prepped and draped in usual sterile fashion. Formal timeout was conducted. An oblique left-sided incision was then made over the medial aspect of the left sternocleidomastoid. I proceeded with a standard anterior cervical approach. Verified my level under lateral x-ray. Placed a self-retaining retractor with Saxis pins to distract across the disk space. I performed an annulotomy followed by complete diskectomy at C4-5. I then turned my attention to C5-C6, where I repeated this process. I then corpectomized the body of C5, I took the entire vertebral body of C5 out. I then took down the posterior longitudinal ligament and I did bilateral foraminotomies at C4-5 and C5-6. I then sized and chose the appropriate titanium expandable NuVasive cage which I packed with human allograft and local bone autograft. I seated the midline position and I expanded that cage. I then turned my attention to C6-C7 where I did another complete diskectomy, bilateral foraminotomies and I sized and chose the appropriate titanium interbody spacer, packed with human allograft, local bone autograft and seated in the midline position. I then obtained the appropriate size plate, placed it over the midline and placed screws into the body of C3 into the body of C6 and also in the body of C7. I finally tightened those screws. Final AP and lateral x-ray demonstrated good positioning of all the hardware, I maintained hemostasis, placed a Vaibhav-Sheikh drain alongside the plate and I closed in the usual layered fashion utilizing 3-0 Vicryl followed by a running 3-0 subcuticular stitch. I applied dressings, took the patient in the supine position and took her to the PACU where she awoke without incident. She tolerated the procedure well. PLAN: At this time is to admit the patient for IV antibiotics, IV pain control and postoperative monitoring. Postop day #1, discontinue her drain. Please note instrumentation utilized was NuVasive for everything. Job ID: [id number] DocumentID: [id number] Dictated Date: 10/10/2018 15:01:38 Clinical Trial Head Date: 10/11/2018 00:20:19 Dictated By: VILLA SCHWARTZ DO
[2018-10-11] MEDS: ceFAZolin INJECTION 1,000 MG in NS (IVPB) 50 ML IV SCH ×2 (02:31→11:47)
[2018-10-11] MEDS: HYDROcodone/APAP 5 MG/325 MG (LORTAB) TAB PO PRN ×3 (02:31→11:47)
[2018-10-11] MEDS ORDERED: NON-FORMULARY MEDICATION 1 EA EA (Insulin Aspart (Novolog Flexpen) 15 UNITS) SQ SCH (06:00)
--- NOTE | 2018-10-11 06:07 | Progress Note (SOAP) ---
Subjective Date Seen by a Provider: Oct 11, 2018 Time Seen by a Provider: 05:50 Subjective/Events-last exam POD #1 s/p ACDF C4-7 with C5 corpectomy. Had a rough night with pain. C/o difficulty swallowing. Has recieved decadron with mild improvement, BLG elevated. Denies CP, radiating UE pain is better, denies UE weakness Review of Systems General: No Chills, No Night Sweats Pulmonary: Cough Cardiovascular: No: Chest Pain Gastrointestinal: No: Nausea, Vomiting Musculoskeletal: neck pain Neurological: No: Weakness, Numbness Objective Exam Vital Signs Date Time Temp Pulse Resp B/P (MAP) Pulse Ox O2 Delivery O2 Flow Rate FiO2 10/11/18 01:00 86 20 136/83 (100) 95 Nasal Cannula 2.00 10/11/18 00:00 88 18 134/99 (111) 94 Nasal Cannula 2.00 10/10/18 23:00 89 20 158/82 (107) 95 Nasal Cannula 2.00 10/10/18 22:30 93 Nasal Cannula 2.00 10/10/18 22:00 98.8 89 20 158/82 (107) 95 Nasal Cannula 2.00 10/10/18 21:00 Nasal Cannula 2.00 10/10/18 20:20 98.7 80 18 157/72 (100) 92 Nasal Cannula 2.00 10/10/18 18:55 98.7 85 20 170/79 (109) 95 Nasal Cannula 2.00 10/10/18 17:00 98.0 80 20 150/80 (103) 95 Nasal Cannula 2.00 10/10/18 15:30 98.7 85 18 137/65 (89) 94 Nasal Cannula 2.00 10/10/18 10:25 98.0 78 20 162/69 (100) 96 Room Air I & O 10/11/18 07:00 Intake Total 1170 ml Output Total 520 ml Balance 650 ml Capillary Refill : General Appearance: Mild Distress Neck: No Non Tender; Supple; No JVD; Tender Lateral, Other (dressing slightly saturated) Respiratory: No Accessory Muscle Use, No Respiratory Distress Peripheral Pulses: 2+ Radial Pulses (R), 2+ Radial Pulses (L) Extremity: Normal Capillary Refill, Normal Inspection, Non Tender, No Calf Tenderness Neurologic/Psychiatric: Alert, Oriented x3, No Motor/Sensory Deficits Results Lab Laboratory Tests 12/17/18 11:04: White Blood Count 6.2, Red Blood Count 4.14L, Hemoglobin 11.6, Hematocrit 34L, Mean Corpuscular Volume 82, Mean Corpuscular Hemoglobin 28, Mean Corpuscular Hemoglobin Concent 34, Red Cell Distribution Width 14.1, Platelet Count 168, Mean Platelet Volume 11.2H, Neutrophils (%) (Auto) 72, Lymphocytes (%) (Auto) 16 , Monocytes (%) (Auto) 8, Eosinophils (%) (Auto) 3, Basophils (%) (Auto) 1, Neutrophils # (Auto) 4.5, Lymphocytes # (Auto) 1.0, Monocytes # (Auto) 0.5, Eosinophils # (Auto) 0.2, Basophils # (Auto) 0.1, Sodium Level 140, Potassium Level 4.5, Chloride Level 108H, Carbon Dioxide Level 23, Anion Gap 9, Blood Urea Nitrogen 19H, Creatinine 0.89, Estimat Glomerular Filtration Rate > 60, BUN /Creatinine Ratio 21, Glucose Level 194H, Calcium Level 9.6 10/10/18 11:11: Glucometer 214H 10/10/18 14:15: Glucometer 182H 10/10/18 18:19: Glucometer 272H 10/10/18 20:32: Glucometer 338H 10/11/18 05:24: Glucometer 298H Assessment/Plan Assessment/Plan Assess & Plan/Chief Complaint assessment: POD #1 s/p acdf DM htn Plan c-collar when OOB PT IS at bedside and encouraged cervical x ray today pain control BGL control will consult to hospitalist Clinical Quality Measures DVT/VTE Risk/Contraindication: Risk Factor Score Per Nursin RFS Level Per Nursing on Admit: 4+=Very High OSCAR GARCIA Oct 11, 2018 06:07
[2018-10-11] MEDS: MULTIVIT W/MINERALS TAB (THERAGRAN M) PO SCH (06:33)
[2018-10-11] MEDS: FAMOTIDINE 20 MG (PEPCID) TABLET PO SCH ×2 (06:33→18:02)
[2018-10-11] MEDS: LEVOTHYROXINE 75 MCG (LEVOTHROID) TABLET PO SCH (06:33)
[2018-10-11] MEDS: PANTOPRAZOLE 40 MG (PROTONIX) TAB PO SCH ×2 (06:34→22:16)
[2018-10-11] MEDS: inSUlin ASPART (NovoLOG) 1 UNIT/0.01 ML (CHARGE PER UNIT) SC SCH ×6 (06:34→22:14)
[2018-10-11] MEDS: FAMOTIDINE 20MG/2ML IV (PEPCID) IV SCH ×2 (06:34→18:02)
[2018-10-11] MEDS: VENlafaxine 75 MG (EFFEXOR) TAB PO SCH (09:10)
[2018-10-11] MEDS: lisINopril 5 MG (PRINIVIL) TABLET PO SCH (09:10)
[2018-10-11] MEDS: DULoxetine 30 MG (CYMBALTA) CAP PO SCH (09:11)
[2018-10-11] MEDS: VENlafaxine 37.5 MG (EFFEXOR) TAB PO SCH (09:11)
[2018-10-11] MEDS: CYCLOBENZAPRINE 10 MG (FLEXERIL) TAB PO PRN ×2 (09:33→18:05)
[2018-10-11] MEDS: ALPRAZolam 0.5 MG (XANAX) TAB PO PRN (09:33)
[2018-10-11] MEDS: morphine INJ 4 MG/ML 1 ML (VIAL/SYRINGE) IVP PRN ×3 (09:34→14:52)
--- NOTE | 2018-10-11 09:49 | Physical Therapy Evaluation ---
PT Evaluation-General Medical Diagnosis Admission Date Oct 10, 2018 at 10:04 Medical Diagnosis: stenosis Onset Date: Oct 10, 2018 Therapy Diagnosis Therapy Diagnosis: debility Height/Weight Height (Feet): 5 Height (Inches): 7.00 Weight (Pounds): 272 Weight (Ounces): 0.0 Precautions Precautions/Isolations: Fall Prevention, Standard Precautions Weight Bear Status Right Lower Extremity: Right Full Weight Bearing Left Lower Extremity: Left Full Weight Bearing Referral Physician: Efren Reason for Referral: Evaluation/Treatment Medical History Pertinent Medical History: CABG, DM, HTN Current History s/p ACDF C4-7 with C5 corpectomy Social History Home: Apartment Current Living Status: Spouse Entry Into Home: Level Entry Prior/Core FIM Prior Level of Function Therapy Code Descriptions/Definitions Functional [place] Measure: 0=Not Assessed/NA 4=Minimal Assistance 1=Total Assistance 5=Supervision or Setup 2=Maximal Assistance 6=Modified [place] 3=Moderate Assistance 7=Complete [place] Therapy Quality Codes: 6 Independent with activity with or without an assistive device 5 Patient requires set up or clean up by helper. Patient completes activity by themselves 4 Supervision or touching assist (CGA). [place] provide cues , steadying assist 3 The helper provides less than half the effort to complete the activity 2 The helper provides more than half the effort to complete the activity 1 Dependent. The helper does all the effort to complete an activity 7 Patient refused to complete or attempt activity 9 The patient did not perform the activity before the current illness or injury 88 Not attempted due to Medical conditions or safety concerns Functional Abilities and Goals: Independent: Patient completed the activities by him/herself, with or without an assistive device, with no assistance from a helper. Needed Some Help: Patient needed partial assistance from another person to complete activities. Dependent: A helper completed the activities for the patient. Unknown: Not Applicable: Bed Mobility: 6 Transfers (B,C,W/C) (FIM): 6 Gait: 6 Indoor Mobility (Ambulation): Independent Stairs: Independent Prior Devices Use: Other-see list below Prior Device Use: cane PT Evaluation-Current Subjective Patient agrees to PT. Pain Numeric Pain Scale: 7 Location: Posterior, Anterior Location Body Site: Neck Pain Description: Acute Objective Patient Orientation: Normal For Age Problem Solving: Good Attachments: Oxygen, Drains, IV ROM/Strength ROM Lower Extremities bilateral LE WFL Strength Lower Extremities 4+/5 grossly bilaterally Integumentary/Posture Integumentary refer to nursing notes Bowel Incontinence: No Bladder Incontinence: No Posture WFL Neuromuscular (Tone, Coordination, Reflexes) grossly intact Sensory Vision: Functional Hearing: Functional Sensation Right Lower Extremit: Intact Sensation Left Lower Extremity: Intact Transfers Therapy Code Descriptions/Definitions Functional [place] Measure: 0=Not Assessed/NA 4=Minimal Assistance 1=Total Assistance 5=Supervision or Setup 2=Maximal Assistance 6=Modified [place] 3=Moderate Assistance 7=Complete [place] Transfers (B, C, W/C) (FIM): 5 Scootin Rollin Supine to/from Sit: 5 Sit to/from Stand: 5 Gait Mode of Locomotion: Walk Anticipated Mode of Locomotion: Walk Gait (FIM): 5 Distance (FIM): 3=150 ft Distance: 300' Gait Level of Assist: 5 Gait Assistive Device: FWW Comments/Gait Description steady, functional gait sequence Balance Sitting Static: Normal Sitting Dynamic: Normal Standing Static: Normal Standing Dynamic: Normal Assessment/Needs 63 y.o. female, will be seen short term by skilled PT to address functional mobility. Patient is currently limited due to pain, however, is at a high LOF. Rehab Potential: Fair PT Short Term Goals Short Term Goals Time Frame: Oct 14, 2018 Transfers (B,C,W/C) (FIM): 6 Gait (FIM): 6 Distance (FIM): 3=150 ft Gait Distance Comment: 300' Gait Level of Assist: 6 Gait Assistive Device: FWW, Cane Single Point PT Plan Treatment/Plan Treatment Plan: Continue Plan of Care Treatment Plan: Bed Mobility, Education, Functional Strength, Gait, Safety, Therapeutic Exercise, Transfers Treatment Duration: Oct 14, 2018 Frequency: 4 times per week Estimated Hrs Per Day: .25 hour per day Patient and/or Family Agrees t: Yes Discharge Recommendations Therapy D/C Recommendations: Home w/ Family Support Time/GCodes Time In: 830 Time Out: 850 Total Billed Treatment Time: 20 Total Billed Treatment 1 visit EVModC 20 min G Codes Necessary: Yes PT/OT Therapy GCodes Therapy Functional Limitation: Physical Therapy Test(s)/Tool used to determine: Level of Assistance Scale Functional Limitation-Current Charge Code: MOBCUR Modifier: CJ Functional Limitation-Goal Charge Code: MOBGOAL Modifier: IAN ENGLISH PT Oct 11, 2018 09:49
[2018-10-11] MEDS: PREGABALIN 25 MG (LYRICA) NON-STOCK STRENGTH PO SCH ×2 (10:09→22:15)
--- NOTE | 2018-10-11 10:37 | Anesthesia-General Post-Op ---
General Patient Condition Mental Status/LOC: Same as Preop Cardiovascular: Satisfactory Nausea/Vomiting: Absent Respiratory: Satisfactory Pain: Controlled Complications: Absent Post Op Complications Complications None Follow Up Care/Instructions Patient Instructions None needed. Anesthesia/Patient Condition Patient Condition Patient is doing well, no complaints, stable vital signs, no apparent adverse anesthesia problems. No complications reported per nursing. SONNY BERMUDEZ CRNA Oct 11, 2018 10:37
--- NOTE | 2018-10-11 13:38 | Consultation-Hospitalist ---
HPI History of Present Illness: HPI/Chief Complaint Pt is a 63yoCF with a PMH of IDDMII, HTN, CAD s/p 4 vessel CABG, hypothyroidism who was admitted to the hospital per orthopedic surgery for ACDF C4-7 with C5 corpectomy. I am consulted for medical management. She states she is having significant pain still but is sitting up in chair and using IS as able. She has no other complaints. She is currently on Decadron and blood sugars have been high. She states she tries to watch her sugars but will have difficulty controlling them from time to time. Source: patient Date Seen 10/11/18 Attending Physician Binu Schwartz DO PCP No,Local Physician Referring Physician Date of Admission Oct 10, 2018 at 10:04 Home Medications & Allergies Home Medications Reviewed patient Home Medication Reconciliation performed by pharmacy medication reconciliations missile technician and/or nursing. Patients Allergies have been reviewed. Allergies Allergies Coded Allergies No Known Drug Allergies (Mylytdcpwc84/14/18) Past Mufxece-Xhxbgh-Udxxos Hx Past Med/Social Hx: Reviewed Nursing Past Med/Soc Hx Patient Social History Alcohol Use: Denies Use Recreational Drug Use: No Smoking Status: Former Smoker Former Smoker, Quit: Oct 07, 2007 Physical Abuse Screen: No Sexual Abuse: No Recent Foreign Travel: No Contact w/other who traveled: No Recent Hopitalizations: No Recent Infectious Disease Expo: No Immunizations Up To Date Date of Pneumonia Vaccine: Apr 07, 2017 Date of Influenza Vaccine: Sep 07, 2018 Seasonal Allergies Seasonal Allergies: No Past Medical History Surgeries: CABG, Orthopedic Cardiac: Coronary Artery Disease, Hypertension Gastrointestinal: Gastroesophageal Reflux Musculoskeletal: Degenerate Disk Disease, Arthritis Endocrine: Diabetes, Insulin dep, Hypothyroidsim Psychosocial: Anxiety, Depression History of Blood Disorders: No Family History Reviewed Nursing Family Hx Colon cancer 19 FATHER (stomach cancer) Diabetes mellitus 19 FATHER G8 SISTER Hypertension 19 FATHER Kidney disease G8 SISTER Myocardial infarction 19 FATHER Respiratory disorder 19 MOTHER (lung cancer) Review of Systems Constitutional: No chills, No fever EENTM: No blurred vision, No double vision, No nose congestion, No throat pain Respiratory: No cough, No dyspnea on exertion, No short of breath Cardiovascular: No chest pain, No edema, No palpitations Gastrointestinal: No abdominal pain, No constipation, No diarrhea, No nausea, No vomiting Genitourinary: No dysuria, No frequency Musculoskeletal: joint pain, neck pain Skin: No lesions, No rash Psychiatric/Neurological: Denies Headache, Denies Numbness, Denies Tingling Physical Exam Physical Exam Vital Signs Vital Signs - First Documented 10/10/18 10/10/18 10:25 15:30 Temp 98.0 Pulse 78 Resp 20 B/P (MAP) 162/69 (100) Pulse Ox 96 O2 Delivery Room Air O2 Flow Rate 2.00 Capillary Refill : Height, Weight, BMI Height: 5'7.00" Weight: 272lbs. 0.0oz. 123.261045bg; 42.6 BMI Method: General Appearance: No Apparent Distress, WD/WN, Obese HEENT: PERRL/EOMI, Moist Mucous Membranes Neck: Non Tender, Supple, Other (dressing in place, C/D/I) Respiratory: Lungs Clear, No Respiratory Distress Cardiovascular: Regular Rate, Rhythm, No Murmur Gastrointestinal: Normal Bowel Sounds, Non Tender, Soft Extremity: Normal Capillary Refill, No Calf Tenderness Neurologic/Psychiatric: Alert, Oriented x3, Normal Mood/Affect Skin: Normal Color, Warm/Dry Results Results/Procedures Labs Laboratory Tests 10/10/18 11:04 Patient resulted labs reviewed. Assessment/Plan Assessment and Plan Assess & Plan/Chief Complaint s/p ACDF C4-7 with C5 corpectomy Diagnosis/Problems Diagnosis/Problems (1) Cervical stenosis of spinal canal Assessment & Plan: POD #1 Management per primary PT/OT (2) Insulin dependent diabetes mellitus Status: Chronic Assessment & Plan: BS acutely elevated Likely due to decadron and stress Will increase home insulin SSI (3) CAD (coronary artery disease) Status: Chronic Assessment & Plan: s/p 4 vessel CABG Continue ASA when ok with primary Continue home meds Qualifiers: Coronary Disease-Associated Artery/Lesion type: [place] artery [place] vs. transplanted heart: [place] heart Associated angina: without angina Qualified Codes: I25.10 - Atherosclerotic heart disease of [place] coronary artery without angina pectoris (4) Hypothyroidism Status: Chronic Assessment & Plan: Continue home supplement (5) Essential (primary) hypertension Assessment & Plan: Well controlled, trend Clinical Quality Measures DVT/VTE Risk/Contraindication: Risk Factor Score Per Nursin RFS Level Per Nursing on Admit: 4+=Very High HANNAH BREWSTER MD Oct 11, 2018 13:38
--- NOTE | 2018-10-11 14:15 | Diagnostic Imaging Report ---
INDICATION: Postoperative. TECHNIQUE: AP and lateral views cervical spine at 10:07 a.m. CORRELATION STUDY: None. FINDINGS: Extensive surgical changes to the cervical spine are present. This includes what appear to be corpectomy changes at C5 level with placement of a strut. Anterior plate and screws have been placed at the of C4, C6, and C7 level. Intervertebral disc spacer device at the C6-C7 level. Inferior extent of the hardware and cervicothoracic junction is not well defined. Visualized alignment appears to be relatively anatomic. Surgical drain and soft tissue gas collections are present. Partial visualization of presumably central line in the right lung apex. IMPRESSION: 1. Extensive postop changes of the cervical spine including corpectomy changes and anterior fusion extending from C4 through C7. Dictated by: Dictated on workstation # [id number]
--- NOTE | 2018-10-11 15:35 | Occupational Therapy Eval ---
OT Evaluation-General/PLF Medical Diagnosis Admission Date Oct 10, 2018 at 10:04 Medical Diagnosis: stenosis Onset Date: Oct 10, 2018 Therapy Diagnosis Therapy Diagnosis: decr self care, decr funct mobility Height/Weight Height (Feet): 5 Height (Inches): 7.00 Weight (Pounds): 272 Weight (Ounces): 0.0 Precautions Precautions/Isolations: Fall Prevention, Standard Precautions Safety Interventions: Reorient-PRN Referral Physician: Efren Referral Reason: Evaluation/Treatment Referral Comments Cervical collar when out of bed Medical History Pertinent Medical History: Arthritis, CABG, CAD, DM, GERD, HTN, Hypothroidism Additional Medical History R shoulder rot cuff repair x 2, bilat CTA, bilat elbow surg. Depression, anxiety. SOB. DDD. Lower back pain with burning. Bilat leg pain, numbness/ tingling legs and feet. neck pain that radiates to both arms, with numbness and tingling Current History ACDF C4-7 and corpectomy C5 on 10-10-18. Reported difficulty swallowing Reviewed History: Yes Social History Home: Apartment Current Living Status: Spouse Entry Into Home: Level Entry ADL-Prior Level of Function Therapy Code Descriptions/Definitions Functional [place] Measure: 0=Not Assessed/NA 4=Minimal Assistance 1=Total Assistance 5=Supervision or Setup 2=Maximal Assistance 6=Modified [place] 3=Moderate Assistance 7=Complete [place] Therapy Quality Codes: 6 Independent with activity with or without an assistive device 5 Patient requires set up or clean up by helper. Patient completes activity by themselves 4 Supervision or touching assist (CGA). [place] provide cues , steadying assist 3 The helper provides less than half the effort to complete the activity 2 The helper provides more than half the effort to complete the activity 1 Dependent. The helper does all the effort to complete an activity 7 Patient refused to complete or attempt activity 9 The patient did not perform the activity before the current illness or injury 88 Not attempted due to Medical conditions or safety concerns Functional Abilities and Goals: Independent: Patient completed the activities by him/herself, with or without an assistive device, with no assistance from a helper. Needed Some Help: Patient needed partial assistance from another person to complete activities. Dependent: A helper completed the activities for the patient. Unknown: Not Applicable: ADL PLOF Comments Pt reported that she has been able to manage her basic self care needs but has some trouble putting on her [place] and support hose and managing buttons. She is able to do light housekeeping, laundry, cooking but they all take extra time. She is disabled and still drives. Self Care: Independent Functional Cognition: Independent DME/Equipment: Bath Chair, Grab Bars, Shower, Tall Toilet OT Current Status Subjective Pt seen in room, up in recliner, agreeable to OT. Pain reported 9/10 in neck Appearance Alert, cooperative Mental Status/Objective Attachments: IV, Oxygen Current Glasses/Contacts: Yes Upper Extremity ROM Grossly WFL except limited to about 90 degrees at shoulders Upper Extremity Sensation Pt reported some numbness and tingling ADL-Treatment ADL-Current Pt transferred SBA with PT and walked 300 feet with FWW. Pt education on different devices that might help her with ADLs when she has cervical cellar on and difficulty reaching feet. She is interested in learning more about AD for ADLs Therapy Code Descriptions/Definitions Functional [place] Measure: 0=Not Assessed/NA 4=Minimal Assistance 1=Total Assistance 5=Supervision or Setup 2=Maximal Assistance 6=Modified [place] 3=Moderate Assistance 7=Complete [place] Therapy Quality Codes: 6 Independent with activity with or without an assistive device 5 Patient requires set up or clean up by helper. Patient completes activity by themselves 4 Supervision or touching assist (CGA). [place] provide cues , steadying assist 3 The helper provides less than half the effort to complete the activity 2 The helper provides more than half the effort to complete the activity 1 Dependent. The helper does all the effort to complete an activity 7 Patient refused to complete or attempt activity 9 The patient did not perform the activity before the current illness or injury 88 Not attempted due to Medical conditions or safety concerns Education OT Patient Education: Purpose of tx/functional activities, Rehab process Teaching Recipient: Patient Teaching Methods: Discussion Response to Teaching: Verbalize Understanding OT Short Term Goals Short Term Goals Transfers (B,C,W/C) (FIM): 6 OT Assistance Representative Goals Assistance Representative Goals Time Frame: Oct 13, 2018 Additional Goals: 1-Demonstrate ADL Tasks, 2-Verbalize Understanding 1=Demonstrate adherence to instructed precautions during ADL tasks. 2=Patient will verbalize/demonstrate understanding of assistive devices/ modifications for ADL. OT Education/Plan Problem List/Assessment Assessment: Dependent Transfers, Impaired Self-Care Skills, Restricted Funct UE ROM Pt would benefit from skilled OT to increase her independence in basic self care Discharge Recommendations Plan/Recommendations: Continue POC Treatment Plan/Plan of Care Treatment,Training & Education: Yes Patient would benefit from OT for education, treatment and training to promote independence in ADL's, mobility, safety and/or upper extremity function for ADL' s. Plan of Care: ADL Retraining Treatment Duration: Oct 13, 2018 Frequency: 3 times per week Estimated Hrs Per Day: .25 hour per day Agreement: Yes Rehab Potential: Fair Time/GCodes Start Time: 14:54 Stop Time: 15:17 Total Time Billed (hr/min): 23 Billed Treatment Time visit, 23 minutes evaluation low intensity PT/OT Therapy GCodes Therapy Functional Limitation: Physical Therapy Test(s)/Tool used to determine: Level of Assistance Scale Functional Limitation-Current Charge Code: MOBCUR Modifier: CROW Functional Limitation-Goal Charge Code: MOBGOAL Modifier: MELANIA DRAKE OT Oct 11, 2018 15:35
[2018-10-11] MEDS: oxyCODONE/APAP 5/325MG (PERCOCET 5) TABLET PO PRN ×2 (15:55→22:16)
[2018-10-11] MEDS: NS IV 1000 ML 1,000 ML IV SCH (16:04)
[2018-10-11] MEDS: QUEtiapine 25 MG (SEROquel) TAB IMMEDIATE RELEASE PO SCH (22:16)
[2018-10-11] MEDS: traZODone 100 MG (DESYREL) TAB PO SCH (22:16)
[2018-10-11] MEDS: DIVALPROEX 250 MG DELAYED RELEASE (DEPAKOTE) TAB PO SCH (22:16)
[2018-10-11] MEDS: ATORVASTATIN 80 MG (LIPITOR) TABLET PO SCH (22:16)
[2018-10-11] MEDS: inSUlin DETERMIR 1 UNIT/0.01 ML (LEVEMIR) CHARGE PER UNIT SQ SCH (22:56)
[2018-10-12 00:39] VITALS: BP 143/81
[2018-10-12 04:03] VITALS: BP 145/67
[2018-10-12] MEDS: oxyCODONE/APAP 5/325MG (PERCOCET 5) TABLET PO PRN ×4 (04:22→21:20)
--- NOTE | 2018-10-12 06:42 | Discharge Inst-Simple/Standard ---
Discharge Inst-Standard Discharge Medications New, Converted or Re-Newed RX: RX on Chart Patient Instructions/Follow Up Plan of Care/Instructions/FU: may resume Plavix on 10/15/2018 wear collar when out of bed dont bend lift twist push or pull 5 lb weight restriction keep incision covered and dry follow up in clinic in 2 weeks Activity as Tolerated: No Discharge Diet: ADA Diet Return to The Hospital For: shortness of breath, chest pain new onset weakness fever, chills OSCAR GARCIA Oct 12, 2018 06:42
[2018-10-12] MEDS: LEVOTHYROXINE 75 MCG (LEVOTHROID) TABLET PO SCH (07:08)
[2018-10-12] MEDS: PANTOPRAZOLE 40 MG (PROTONIX) TAB PO SCH ×2 (07:08→21:19)
[2018-10-12] MEDS: FAMOTIDINE 20 MG (PEPCID) TABLET PO SCH ×2 (07:08→18:01)
[2018-10-12] MEDS: MULTIVIT W/MINERALS TAB (THERAGRAN M) PO SCH (07:08)
[2018-10-12] MEDS: HYDROcodone/APAP 5 MG/325 MG (LORTAB) TAB PO PRN (07:08)
[2018-10-12] MEDS: inSUlin ASPART (NovoLOG) 1 UNIT/0.01 ML (CHARGE PER UNIT) SC SCH ×7 (07:09→21:19)
[2018-10-12] MEDS ORDERED: OXYC1TAB87 PO (07:22)
--- NOTE | 2018-10-12 07:28 | Progress Note (SOAP) ---
Subjective Date Seen by a Provider: Oct 12, 2018 Time Seen by a Provider: 07:25 Subjective/Events-last exam complains of moderate pain, activity level overall poor and needs encouragement from nursing staff to ambulate, does not have family to help care for her on discharge. otherwise, doing well. Objective Exam Vital Signs Date Time Temp Pulse Resp B/P (MAP) Pulse Ox O2 Delivery O2 Flow Rate FiO2 10/12/18 04:03 97.8 78 18 145/67 (93) 99 Nasal Cannula 2.00 10/12/18 00:39 97.5 90 20 143/81 (101) 96 Nasal Cannula 2.00 10/11/18 21:00 Nasal Cannula 2.00 10/11/18 19:10 97.6 82 18 115/72 (86) 98 Nasal Cannula 2.00 10/11/18 15:45 98.0 87 18 118/72 (87) 94 Nasal Cannula 2.00 10/11/18 12:30 97.8 79 16 124/74 (91) 96 Nasal Cannula 2.00 10/11/18 09:30 98.6 82 20 119/75 (90) 95 Nasal Cannula 2.00 10/11/18 09:00 95 Nasal Cannula 2.00 10/11/18 08:30 86 17 129/75 (93) 96 Nasal Cannula 2.00 10/11/18 07:30 86 18 141/82 (101) 94 Nasal Cannula 2.00 I & O 10/12/18 07:00 Intake Total 900 ml Output Total 1360 ml Balance -460 ml Capillary Refill : General Appearance: No Apparent Distress Extremity: Normal Capillary Refill, Normal Inspection, Normal Range of Motion, Non Tender, No Calf Tenderness Neurologic/Psychiatric: Alert, Oriented x3, No Motor/Sensory Deficits, Normal Mood/Affect Skin: Normal Color (dressing to neck CDI), Warm/Dry Results Lab Laboratory Tests 10/11/18 12:29: Glucometer 275H 10/11/18 15:47: Glucometer 303H 10/11/18 20:52: Glucometer 157H 10/11/18 22:17: Glucometer 116H 10/12/18 02:38: Glucometer 118H 10/12/18 05:29: Glucometer 137H Microbiology 10/10/18 MRSA Screen - Final, Complete MRSA not isolated Assessment/Plan Assessment/Plan Assess & Plan/Chief Complaint S/p Cervical corpectomy POD 2 P: Continue current treatment, if activity level improves and pain control is adequate, she can be discharged to home this afternoon. If not, she may need rehab unit tomorrow. Clinical Quality Measures DVT/VTE Risk/Contraindication: Risk Factor Score Per Nursin RFS Level Per Nursing on Admit: 4+=Very High MIKE GARCIA APRN Oct 12, 2018 07:28
[2018-10-12 08:00] VITALS: BP 122/75
[2018-10-12] MEDS: VENlafaxine 75 MG (EFFEXOR) TAB PO SCH (08:41)
[2018-10-12] MEDS: DULoxetine 30 MG (CYMBALTA) CAP PO SCH (08:41)
[2018-10-12] MEDS: VENlafaxine 37.5 MG (EFFEXOR) TAB PO SCH (08:41)
[2018-10-12] MEDS: lisINopril 5 MG (PRINIVIL) TABLET PO SCH (08:41)
[2018-10-12] MEDS: PREGABALIN 25 MG (LYRICA) NON-STOCK STRENGTH PO SCH ×2 (08:41→21:24)
[2018-10-12] MEDS: ALPRAZolam 0.5 MG (XANAX) TAB PO PRN (08:42)
[2018-10-12] MEDS: CYCLOBENZAPRINE 10 MG (FLEXERIL) TAB PO PRN (08:42)
[2018-10-12] MEDS: FAMOTIDINE 20MG/2ML IV (PEPCID) IV SCH ×2 (08:47→18:01)
--- NOTE | 2018-10-12 10:40 | Physical Therapy Daily Note ---
PT Daily Note-Current Subjective Pt states she does not feel she is ready to go home. states she is unable to get in and out of bed and does not have 24 hour help at home. States she does not have a recliner to sleep in. Reports she would like to go to some type of rehab so that she would be able to safely return home. Pain Numeric Pain Scale: 8 Comment: neck and low back pain Appearance upon 1st attempt for PT session, pt refused stating that she is getting her breakfast any minute. 2nd attempt, pt still has not received her brkfst but states she is willing to work with PT now. Pt laying supine in bed with head elevated, neck brace on. At end of session, pt sitting up in recliner with LE's elevated, phone and call light within reach, bedside table in front. All needs met by end of session Mental Status Attachments: [place] Lock neck brace Transfers Therapy Code Descriptions/Definitions Functional Lane Measure: 0=Not Assessed/NA 4=Minimal Assistance 1=Total Assistance 5=Supervision or Setup 2=Maximal Assistance 6=Modified Lane 3=Moderate Assistance 7=Complete Lane Therapy Quality Codes: 6 Independent with activity with or without an assistive device 5 Patient requires set up or clean up by helper. Patient completes activity by themselves 4 Supervision or touching assist (CGA). [place] provide cues , steadying assist 3 The helper provides less than half the effort to complete the activity 2 The helper provides more than half the effort to complete the activity 1 Dependent. The helper does all the effort to complete an activity 7 Patient refused to complete or attempt activity 9 The patient did not perform the activity before the current illness or injury 88 Not attempted due to Medical conditions or safety concerns Transfers (B, C, W/C) (FIM): 3 Scootin Rollin Supine to/from Sit: 4 Sit to/from Stand: 4 Bed to/from Chair: 4 Pt unable to transfer sit to or from supine with bed flat without physical assist. With HOB elevated, pt able to perform with cueing and encouragement but requiring great effort and increased neck and back pain. Inst given for technique. Sit to stand transitions requiring CGA to SBA due to slight unsteadiness self corrected and with pt c/o dizziness Performed x3 supine to from sit transfers, x5 sit to from stand transfers Weight Bearing Right Lower Extremity: Right Full Weight Bearing Left Lower Extremity: Left Full Weight Bearing Gait Training Gait (FIM): 5 Distance (FIM): 3=150 ft Distance: 320 Gait Level of Assist: 5 Gait Persons Needed: 1 Gait Assistive Device: Cane Single Point x2 episodes of slight LOB, self corrected. Slow pace, decreased step length and height, occasional use of wall handrail Treatments transfer and gait training Assessment Current Status: Fair Progress pt unable to independently transfer in and out of flat bed. occasional LOB episodes during gait, but self corrected. slight unsteadiness at times with sit to stand transfers PT Short Term Goals Short Term Goals Time Frame: Oct 14, 2018 Transfers (B,C,W/C) (FIM): 6 Gait (FIM): 6 Distance (FIM): 3=150 ft Gait Distance Comment: 300' Gait Level of Assist: 6 Gait Assistive Device: FWW, Cane Single Point PT Plan Problem List Problem List: Activity Tolerance, Functional Strength, Safety, Balance, Gait, Transfer, Bed Mobility Treatment/Plan Treatment Plan: Continue Plan of Care Treatment Plan: Bed Mobility, Education, Functional Strength, Gait, Safety, Therapeutic Exercise, Transfers Treatment Duration: Oct 14, 2018 Frequency: 4 times per week Estimated Hrs Per Day: .25 hour per day Patient and/or Family Agrees t: Yes Safety Risks/Education Patient Education: Gait Training, Transfer Techniques, Safety Issues Teaching Recipient: Patient Teaching Methods: Demonstration, Discussion Response to Teaching: Verbalize Understanding, Return Demonstration, Reinforcement Needed Time/GCodes Time In: 1006 Time Out: 1032 Total Billed Treatment Time: 26 Total Billed Treatment visit FA 16 min GT 10 min PT/OT Therapy GCodes Therapy Functional Limitation: Physical Therapy Test(s)/Tool used to determine: Level of Assistance Scale Functional Limitation-Current Charge Code: MOBCUR Modifier: CJ Functional Limitation-Goal Charge Code: MOBGOAL Modifier: IOANA CLAIRE GROCERY SACKER Oct 12, 2018 10:40
[2018-10-12] MEDS: NS IV 1000 ML 1,000 ML IV SCH (11:17)
[2018-10-12 12:00] VITALS: BP 122/76
--- NOTE | 2018-10-12 14:09 | Occupational Ther Daily Note ---
OT Current Status-Daily Note Subjective Pt sitting in chair, states she is very sleepy, but agrees to therapy. Pt reports 2/10 neck pain. Mental Status/Objective Therapy Code Descriptions/Definitions Functional [place] Measure: 0=Not Assessed/NA 4=Minimal Assistance 1=Total Assistance 5=Supervision or Setup 2=Maximal Assistance 6=Modified [place] 3=Moderate Assistance 7=Complete [place] ADL-Treatment Education provided regarding use of adaptive equipment for LE dressing. Pt doffed socks with SBA using dressing stick, verbal cues for use. Donned socks with minimal assistance using sock aid. Pt requires skilled cues for proper technique. Discussed use of machine programmer as needed to don pants. Pt states understanding of education and has no questions or concerns at this time. Pt sitting in chair, eating after set up, needs met after session. OT Short Term Goals Short Term Goals Transfers (B,C,W/C) (FIM): 6 1=Demonstrate adherence to instructed precautions during ADL tasks. 2=Patient will verbalize/demonstrate understanding of assistive devices/ modifications for ADL. 3=Patient will improve strength/tolerance for activity to enable patient to perform ADL's. OT In Store Marketing Associate Goals In Store Marketing Associate Goals Time Frame: Oct 13, 2018 Additional Goals: 1-Demonstrate ADL Tasks, 2-Verbalize Understanding 1=Demonstrate adherence to instructed precautions during ADL tasks. 2=Patient will verbalize/demonstrate understanding of assistive devices/ modifications for ADL. 3=Patient will improve strength/tolerance for activity to enable patient to perform ADL's. OT Education/Plan Problem List/Assessment Pt would benefit from skilled OT to increase her independence in basic self care Discharge Recommendations Plan/Recommendations: Continue POC Treatment Plan/Plan of Care Patient would benefit from OT for education, treatment and training to promote independence in ADL's, mobility, safety and/or upper extremity function for ADL' s. Plan of Care: ADL Retraining Treatment Duration: Oct 13, 2018 Frequency: 3 times per week Estimated Hrs Per Day: .25 hour per day Agreement: Yes Rehab Potential: Fair Time/GCodes Start Time: 13:43 Stop Time: 13:58 Total Time Billed (hr/min): 15 Billed Treatment Time 1 visit, ADL(15minutes) PT/OT Therapy GCodes Therapy Functional Limitation: Physical Therapy Test(s)/Tool used to determine: Level of Assistance Scale Functional Limitation-Current Charge Code: MOBCUR Modifier: CJ Functional Limitation-Goal Charge Code: MOBGOAL Modifier: GREGORY VIRAMONTES OT Oct 12, 2018 14:09
[2018-10-12 16:00] VITALS: BP 131/60
[2018-10-12 20:10] VITALS: BP 155/67
[2018-10-12] MEDS: inSUlin DETERMIR 1 UNIT/0.01 ML (LEVEMIR) CHARGE PER UNIT SQ SCH (21:19)
[2018-10-12] MEDS: QUEtiapine 25 MG (SEROquel) TAB IMMEDIATE RELEASE PO SCH (21:19)
[2018-10-12] MEDS: traZODone 100 MG (DESYREL) TAB PO SCH (21:20)
[2018-10-12] MEDS: DIVALPROEX 250 MG DELAYED RELEASE (DEPAKOTE) TAB PO SCH (21:20)
[2018-10-12] MEDS: ATORVASTATIN 80 MG (LIPITOR) TABLET PO SCH (21:20)
[2018-10-13 00:04] VITALS: BP 140/63
[2018-10-13] MEDS: oxyCODONE/APAP 5/325MG (PERCOCET 5) TABLET PO PRN ×2 (03:46→10:12)
[2018-10-13 04:00] VITALS: BP_SYST 140; BP_SYST 141; BP_DIAS 63; BP_DIAS 81
[2018-10-13] MEDS: PANTOPRAZOLE 40 MG (PROTONIX) TAB PO SCH (05:35)
[2018-10-13] MEDS: LEVOTHYROXINE 75 MCG (LEVOTHROID) TABLET PO SCH (05:35)
[2018-10-13] MEDS: MULTIVIT W/MINERALS TAB (THERAGRAN M) PO SCH (05:35)
[2018-10-13] MEDS: FAMOTIDINE 20 MG (PEPCID) TABLET PO SCH (05:35)
[2018-10-13] MEDS: inSUlin ASPART (NovoLOG) 1 UNIT/0.01 ML (CHARGE PER UNIT) SC SCH (05:35)
[2018-10-13] MEDS: FAMOTIDINE 20MG/2ML IV (PEPCID) IV SCH (05:37)
--- NOTE | 2018-10-13 07:17 | Progress Note (SOAP) ---
Subjective Date Seen by a Provider: Oct 13, 2018 Time Seen by a Provider: 07:15 Subjective/Events-last exam Currently states her pain is controlled, she is very drowsy but easily awoke from sleep. verbalized no complaints. Objective Exam Vital Signs Date Time Temp Pulse Resp B/P (MAP) Pulse Ox O2 Delivery O2 Flow Rate FiO2 10/13/18 04:00 99.2 87 20 141/81 (101) 98 Nasal Cannula 2.00 10/13/18 00:04 99.0 81 18 140/63 (88) 99 Nasal Cannula 2.00 10/12/18 21:00 Nasal Cannula 2.00 10/12/18 20:10 98.3 80 20 155/67 (96) 99 Nasal Cannula 2.00 10/12/18 16:00 97.9 82 18 131/60 (83) 97 Nasal Cannula 2.00 10/12/18 12:00 96.2 76 20 122/76 (91) 94 Nasal Cannula 2.00 10/12/18 09:00 Room Air 10/12/18 08:00 97.1 79 20 122/75 (91) 95 Nasal Cannula 2.00 I & O 10/13/18 07:00 Intake Total 1040 ml Output Total 905 ml Balance 135 ml Capillary Refill : General Appearance: No Apparent Distress Extremity: Normal Capillary Refill, Normal Inspection, Normal Range of Motion, Non Tender, No Calf Tenderness, No Pedal Edema Neurologic/Psychiatric: Alert, Oriented x3, No Motor/Sensory Deficits, Normal Mood/Affect, it technical architect II-XII Norm as Tested Skin: Normal Color, Warm/Dry (dressing to anterior neck CDI) Results Lab Laboratory Tests 10/12/18 10:41: Glucometer 87 10/12/18 11:28: Glucometer 115H 10/12/18 16:00: Glucometer 128H 10/12/18 21:02: Glucometer 150H 10/13/18 04:01: Glucometer 124H 10/13/18 04:49: Glucometer 139H Microbiology 10/10/18 MRSA Screen - Final, Complete MRSA not isolated Assessment/Plan Assessment/Plan Assess & Plan/Chief Complaint S/p Cervical corpectomy POD 3 P: DC to rehab today, f/u with Dr. Schwartz in 7-10 days, rx for percocet on chart , Dr. Efren to do discharge instructions Clinical Quality Measures DVT/VTE Risk/Contraindication: Risk Factor Score Per Nursin RFS Level Per Nursing on Admit: 4+=Very High MIKE GARCIA APRN Oct 13, 2018 07:17
[2018-10-13 08:00] VITALS: BP 139/63
[2018-10-13] MEDS: CYCLOBENZAPRINE 10 MG (FLEXERIL) TAB PO PRN (08:06)
[2018-10-13] MEDS: PREGABALIN 25 MG (LYRICA) NON-STOCK STRENGTH PO SCH (08:06)
[2018-10-13] MEDS: DULoxetine 30 MG (CYMBALTA) CAP PO SCH (08:06)
[2018-10-13] MEDS: VENlafaxine 37.5 MG (EFFEXOR) TAB PO SCH (08:06)
[2018-10-13] MEDS: lisINopril 5 MG (PRINIVIL) TABLET PO SCH (08:06)
[2018-10-13] MEDS: VENlafaxine 75 MG (EFFEXOR) TAB PO SCH (08:06)
[2018-10-13] MEDS: NS IV 1000 ML 1,000 ML IV SCH (08:07)
[2018-10-13 10:26] VITALS: BP 139/63
[2018-10-14] MEDS ORDERED: VENL-48 PO (10:24)
[2018-10-14] MEDS ORDERED: VENL75CA93 PO (10:24)
[2018-10-14] MEDS ORDERED: CLOP75TA28 PO (10:24)
== END 2018-10-13 10:26 | DRG 472 ==
LOC: 4TH 10:04 → SURG 10:05 → EDSTATUS 12:15 → 4TH 15:30 → EDPENDDISTM 10-12 16:00 → EDPENDDISDT 10-13 12:00 → EDPENDDISTM 10-13 12:00
PROVIDERS: ADMIT Orthopaedic Surgery; ATTEND Orthopaedic Surgery
PROC: 0RT30ZZ Resection of Cervical Vertebral Disc, Open Approach (ICD-10-PCS; 2018-10-10)
PROC: 0RG2070 Fusion of 2 or more Cervical Vertebral Joints with Autologous Tissue Substitute, Anterior Approach, Anterior Column, Open Approach (ICD-10-PCS; principal; 2018-10-10 11:29)
DX: M48.02 Spinal stenosis, cervical region (principal); M54.12 Radiculopathy, cervical region; M43.12 Spondylolisthesis, cervical region; Z68.41 Body mass index [BMI] 40.0-44.9, adult; I10 Essential (primary) hypertension; I25.10 Atherosclerotic heart disease of native coronary artery without angina pectoris; E11.51 Type 2 diabetes mellitus with diabetic peripheral angiopathy without gangrene; G47.33 Obstructive sleep apnea (adult) (pediatric); K21.9 Gastro-esophageal reflux disease without esophagitis; E03.9 Hypothyroidism, unspecified; E66.9 Obesity, unspecified; F32.9 Major depressive disorder, single episode, unspecified; Z95.1 Presence of aortocoronary bypass graft; Z95.5 Presence of coronary angioplasty implant and graft; Z86.73 Personal history of transient ischemic attack (TIA), and cerebral infarction without residual deficits; Z79.4 Long term (current) use of insulin
CPT/HCPCS: 36415; 72040; 80048; 82962; 85025; 86850; 86900; 86901; 87081; 94664

== ENCOUNTER 2018-10-13 10:10 | Inpatient (IN) | payer MEDICARE, MEDICAID ==
[~2018-10-13] VITALS: Ht 170.2 cm; Wt 128.4 kg
[2018-10-13 10:10] VITALS: BP 138/77
[~2018-10-13 10:10] MED LIST changes: +OXYC1TAB87 PO
--- NOTE | 2018-10-13 11:16 | Physical Therapy Evaluation ---
PT Evaluation-General Medical Diagnosis Admission Date Oct 13, 2018 at 10:10 Medical Diagnosis: non traumatic spinal cord dysfunction Onset Date: Oct 10, 2018 Therapy Diagnosis Therapy Diagnosis: generalized weakness/debility Height/Weight Height (Feet): 5 Height (Inches): 7.00 Weight (Pounds): 272 Weight (Ounces): 0.0 Precautions Precautions/Isolations: Standard Precautions Weight Bear Status Right Lower Extremity: Right Full Weight Bearing Left Lower Extremity: Left Full Weight Bearing Referral Physician: Denzel Reason for Referral: Evaluation/Treatment Medical History Pertinent Medical History: Arthritis, CABG, CAD, DM, GERD, HTN, Hypothroidism Current History s/p cervical fusion Reviewed History: Yes Social History Home: Apartment Current Living Status: Alone Entry Into Home: Level Entry Prior/Core FIM Prior Level of Function Therapy Code Descriptions/Definitions Functional [place] Measure: 0=Not Assessed/NA 4=Minimal Assistance 1=Total Assistance 5=Supervision or Setup 2=Maximal Assistance 6=Modified [place] 3=Moderate Assistance 7=Complete [place] Therapy Quality Codes: 6 Independent with activity with or without an assistive device 5 Patient requires set up or clean up by helper. Patient completes activity by themselves 4 Supervision or touching assist (CGA). [place] provide cues , steadying assist 3 The helper provides less than half the effort to complete the activity 2 The helper provides more than half the effort to complete the activity 1 Dependent. The helper does all the effort to complete an activity 7 Patient refused to complete or attempt activity 9 The patient did not perform the activity before the current illness or injury 88 Not attempted due to Medical conditions or safety concerns Functional Abilities and Goals: Independent: Patient completed the activities by him/herself, with or without an assistive device, with no assistance from a helper. Needed Some Help: Patient needed partial assistance from another person to complete activities. Dependent: A helper completed the activities for the patient. Unknown: Not Applicable: Bed Mobility: 6 Transfers (B,C,W/C) (FIM): 6 Gait: 6 Prior Devices Use: Walker, Other-see list below Prior Device Use: FWW or cane PT Evaluation-Current Subjective Patient states, "I don't think the surgery work. I still hurt a lot." Pain Numeric Pain Scale: 10-Worst Possible Pain Location: Incisional Location Body Site: Neck Pain Description: Acute, Chronic Pt/Family Goals return to home LUBA Objective Patient Orientation: Person, Time, Situation Problem Solving: Fair ROM/Strength ROM Lower Extremities bilateral LE WFL Strenght Lower Extremities 4-/5 grossly bilateral LE Integumentary/Posture Integumentary refer to nursing notes Bowel Incontinence: No Bladder Incontinence: No Posture trunk flexed posture Neuromuscular (Tone, Coordination, Reflexes) noted right hand tremor/bilateral LE WFL Sensory Vision: Functional Hearing: Functional Sensation Right Lower Extremit: Impaired Sensation Left Lower Extremity: Impaired Transfers Therapy Code Descriptions/Definitions Functional [place] Measure: 0=Not Assessed/NA 4=Minimal Assistance 1=Total Assistance 5=Supervision or Setup 2=Maximal Assistance 6=Modified [place] 3=Moderate Assistance 7=Complete [place] Therapy Quality Codes: 6 Independent with activity with or without an assistive device 5 Patient requires set up or clean up by helper. Patient completes activity by themselves 4 Supervision or touching assist (CGA). [place] provide cues , steadying assist 3 The helper provides less than half the effort to complete the activity 2 The helper provides more than half the effort to complete the activity 1 Dependent. The helper does all the effort to complete an activity 7 Patient refused to complete or attempt activity 9 The patient did not perform the activity before the current illness or injury 88 Not attempted due to Medical conditions or safety concerns Transfers (B, C, W/C) (FIM): 4 Scootin Rollin Roll Left to Right (QC): 5 Supine to/from Sit: 5 Sit to Lying (QC): 5 Lying to Sitting/Side of Bed(Q: 5 Sit to Stand (QC): 4 Chair/Ker-od-Ixmdn Xfer(QC): 5 Car Transfer (QC): 5 CGA with sit to stand initially, however, SBA during treatment. Gait Does the Patient Walk?: Yes Mode of Locomotion: Walk Anticipated Mode of Locomotion: Walk Gait (FIM): 5 Distance (FIM): 3=150 ft Walk 10 feet (QC): 5 Walk 50 ft with 2 Turns(QC): 5 Walk 150 ft (QC): 5 Walking 10ft/uneven surface-QC: 5 Distance: 150' x 4 Gait Level of Assist: 5 Gait Persons Needed: 1 Gait Assistive Device: FWW Comments/Gait Description very slow, steady gait sequence with no LOB Stairs Stairs (FIM): 1 #of Steps: 1 Level of Assist: 4 1 Step (curb) (QC): 4 4 Steps (QC): 9 Assistive Device: Walker 12 Steps (QC): 9 Balance Sitting Static: Normal Sitting Dynamic: Normal Standing Static: Normal Standing Dynamic: Normal Picking up an Object (QC): 4 Assessment/Needs 63 y.o. female, will benefit from skilled PT to address functional strength and mobility to improve current LOF to safely return to home at maximum LOF. Patient lives at senior apartments with call [employer] system. Rehab Potential: Fair Post Rehab Potential-Barriers: motivation/morbid obesity PT Retirement Goals Key Entry Operator Goals PT Key Entry Operator Goals Time Frame: Oct 29, 2018 Transfers (B,C,W/C) (FIM): 6 Sit to Lying (QC): 6 Lying-Sitting on Side/Bed(QC): 6 Sit to Stand (QC): 6 Rollin Roll Left to Right (QC): 6 Chair/Pca-yt-Malqy Xfer(QC): 6 Car Transfer (QC): 6 Does the Patient Walk: Yes Gait (FIM): 6 Gait distance (FIM): 3=150 ft Distance: 175' Walk 10 feet (QC): 6 Walk 10ft-Uneven Surface(QC): 6 Walk 50ft with 2 Turns (QC): 6 Walk 150 ft (QC): 6 Gait Level of Assist: 6 Gait Assistive Device: FWW Does the Pt use WC or Scooter?: No Stairs (FIM): 1 # of Steps: 1 1 Step (curb) (QC): 5 4 Steps (QC): 9 12 Steps (QC): 9 Stairs Level Of Assist: 5 Picking up an Object (QC): 5 PT Plan Problem List Problem List: Activity Tolerance, Functional Strength, Safety, Balance, Gait, Transfer, Bed Mobility, Other (motivation) Treatment/Plan Treatment Plan: Continue Plan of Care Treatment Plan: Bed Mobility, Education, Functional Activity Brendan, Functional Strength, Group Therapy, Gait, Safety, Therapeutic Exercise, Transfers Treatment Duration: Oct 29, 2018 Frequency: At least 5 of 7 days/Wk (IRF) Estimated Hrs Per Day: 1.5 hours per day Patient and/or Family Agrees t: Yes Discharge Recommendations Therapy D/C Recommendations: Physical Therapy Home Care Time/GCodes Time In: 1010 Time Out: 1110 Total Billed Treatment Time: 60 Total Billed Treatment 1 visit EVHighC 31 min GT 15 min EX 14 min IAN ALLEN PT Oct 13, 2018 11:16
[2018-10-13] MEDS ORDERED: HYDROcodone/APAP 5 MG/325 MG (LORTAB) TAB PO PRN (12:00)
[2018-10-13] MEDS ORDERED: BISACODYL 10 MG SUPP (DULCOLAX) PR PRN (12:00)
[2018-10-13] MEDS ORDERED: MECLIZINE 25 MG (ANTIVERT) TAB PO PRN (12:00)
[2018-10-13] MEDS ORDERED: BISACODYL 5 MG (DULCOLAX) TABLET PO PRN (12:00)
[2018-10-13] MEDS ORDERED: NON-FORMULARY MEDICATION 1 EA EA (Exenatide Microspheres (Bydureon Bcise) 2 MG) SQ SCH (12:00)
--- NOTE | 2018-10-13 12:50 | HISTORY AND PHYSICAL ---
DATE OF SERVICE: 10/13/2018 ADMISSION HISTORY AND PHYSICAL CHIEF COMPLAINT: Difficulty with walking. HISTORY OF PRESENT ILLNESS: The patient is a 63-year-old female with a past medical history significant for insulin-dependent diabetes mellitus, hypertension, coronary artery disease, status post 4-vessel coronary artery bypass graft, who lives in [place], [place] alone, but has a sister nearby, who was admitted to [facility] on 10/10/2018 for an ACDF C4-C7 with C5 corpectomy with Dr. Schwartz. Postoperatively, her insulin was being adjusted. She required assistance for pain management and mobilization. She is referred to inpatient rehabilitation unit. She had been modified independent with a cane prior to this. She was having difficulty with diabetic control as she was on Decadron.The patient had been Modified Independent with a walker or cane prior to surgery.Currently she is Min assist for transfers and SBA for gait with walker.She describes her pain as still quite severe about cervical region.She is mod to max assist for dressing. She is continent of bowel and bladder PAST MEDICAL HISTORY: As per above. PAST SURGICAL HISTORY: She has had shoulder surgery on the right. ALLERGIES: No known medication allergies. FAMILY HISTORY: Noncontributory. SOCIAL HISTORY: , as per above. REVIEW OF SYSTEMS: A 10-point review of systems is significant for shoulder pain and neck pain. MEDICATIONS: 1. Cymbalta 60 mg p.o. daily. 2. Lisinopril 5 mg p.o. daily. 3. Effexor 75 mg p.o. daily. 4. Multivitamins with minerals one tablet p.o. every day. 5. Synthroid 75 mcg p.o. daily. 6. Lipitor 80 mg p.o. at bedtime. 7. Divalproex 250 mg p.o. at bedtime. 8. Protonix 40 mg p.o. b.i.d. 9. Lyrica 25 mg p.o. b.i.d. 10. Seroquel 25 mg p.o. at bedtime. 11. Trazodone 100 mg p.o. at bedtime. 12. Xanax 0.5 mg p.o. t.i.d. p.r.n. anxiety. 13. Flexeril 10 mg p.o. t.i.d. p.r.n. spasms. 14. Hydrocodone/APAP 5, 1 to 2 tablets p.o. q.4 hours p.r.n. moderate pain. 15. Meclizine 12.5 mg p.o. q.6 hours p.r.n. dizziness. 16. Percocet 5, 1 to 2 tablets p.o. q.4 hours p.r.n. moderate pain. 17. Tylenol 650 mg p.o. q.6 hours p.r.n. pain. PHYSICAL EXAMINATION: GENERAL: Significant for a female appearing her stated age, sitting up in chair, in no acute distress, but complaining of shoulder and neck pain. VITAL SIGNS: She is afebrile, pulse 96, respirations 20, blood pressure 138/77, O2 sat 94% on room air. HEENT: Vision, speech and hearing are grossly intact. NECK: Anterior dressing in place. HEART: Regular rhythm. CHEST: Clear. Back Incision covered RODERICK drain in place ABDOMEN: Soft, nontender. Bowel sounds present. EXTREMITIES: There is no lower leg edema. No calf tenderness. MUSCULOSKELETAL: The patient has limited active range of motion of both shoulders to approximately 90 degrees flexion and abduction. Functional range of motion of both lower limbs. NEUROLOGIC: Cognition is grossly intact. Sensation is decreased to light touch in both legs. Strength is 4-/5 in both lower limbs and 4-/5 in both upper limbs. She is reported to be continent of bowel and bladder. IMPRESSION: 1. Status post C4-C5, C5-C6, C6-C7 anterior cervical diskectomy and fusion and C5 corpectomy with C4-C5, C5-C6, C6-C7 anterior instrumentation and application of titanium colpectomy cage C4-C6 and application of titanium cage C6-C7 with use of human Allograft for spine and use of local bone autograft by Dr. Schwartz on 10/10/2018. 2. Postop poorly controlled diabetes mellitus, medications being adjusted. 3. Hypertension, controlled with medication. 4. Coronary artery disease, status post 4-vessel coronary artery bypass graft. 5. Hypothyroidism, on replacement. 6. DVT prophylaxis SCDS PLAN: The patient will have a comprehensive program of inpatient rehabilitation with the goal of maximizing level of functional independence prior to discharge home with sister and home health care. The patient will have PT and OT 90 minutes per day each discipline 5 days a week for 2 weeks with the above goals in mind. Rehabilitation nursing to assist with bowel, bladder, skin, wound care, medication administration, drain management and pain management. Speech therapy to do cognitive assessment and treat as indicated. reinforcing iron worker helper to assist with discharge planning and community reentry. Follow up with hospitalist service and Dr. Schwartz as per their schedule. Accu-Cheks q.i.d. a.c. and at bedtime. SCDs for DVT prophylaxis. ESTIMATED LENGTH OF STAY: Two weeks. PROGNOSIS: Rehab prognosis appears good for goal of discharging home with family and home health care, modified independent to supervision for ADLs and mobility skills. DIET: Regular for now. CODE STATUS: Full code. Job ID: [id number] DocumentID: [id number] Dictated Date: 10/13/2018 12:16:25 Eyeglass Frame Truer Date: 10/13/2018 12:49:43 Dictated By: AMBROISO LCAEY MD MTDD
--- NOTE | 2018-10-13 13:38 | PM&R Post Admission Assessment ---
Post Admission Physician Asses Date seen by provider: Oct 13, 2018 Time seen by provider: 11:50 The preadmission screen agrees with the post admission assessment that the patient is a good candidate for inpatient rehabilitation. The patient will have a comprehensive program of inpatient rehabilitation with a goal of maximizing level of functional independence prior to discharge home with family and HHC. The patient will have PT/OT ninety minutes per day, each discipline, five days a week for 2 weeks for gait, strengthening, conditioning, balance, ADLs, any patient/family/caregiver training as necessary. Speech therapy to do cognitive assessment and treat as indicated. Rehabilitation nursing to assist with bowel, bladder, skin, wound care, medication administration, pain management. Wash Box Operator to assist with discharge planning, community reentry. SCD's for DVT prophylaxis. She appears to be well motivated to participate in three hours of therapy a day. She should be able to tolerate three hours of therapy a day from a medical and surgical standpoint. She should benefit from the three hours of therapy a day. She has a reasonable discharge plan, reasonable discharge rehabilitation goals and a supportive family. She has various comorbidities that need to be closely monitored with medications and treatments adjusted on a daily basis as needed. These include: IDDM HTN CAD s/p CABG IGC code 04.130 Etiologic DX M43.12 Spondylolisthesis Cervical region Barriers to discharge for this patient who had been Modified independent prior to this are for her to be modified independent to supervision for ADLs and mobility skills prior to discharge home with family and HHC, so as to lessen the burden of the caregivers. Risks for this patient include: 1. Fall 2. Fracture 3. DVT 4. Pulmonary embolism 5. Wound infection 6. Skin breakdown 7. Contractures 8. Poorly controlled pain 9. Urinary retention 10. UTI 11. Respiratory infection 12. Aspiration 13.poorly controlled DM 14.poorly controled HTN Estimated Length of Stay: 14 days Prognosis: Rehab prognosis appears good for goal of discharge home with family and HHC modified independent to supervision for ADLs and mobility skills. Date Identified: Oct 13, 2018 Time Identified: 11:50 Action Plan to Resolve CSMI: Transfer meds reviewed including Insulin General: Alert, Oriented X3, Cooperative, No Acute Distress HEENT: Atraumatic, PERRLA, EOMI, Mucous Memb Moist/[place], Other (anterior cervical spine approach covered with dressing) Lungs: Clear to Auscultation Heart: Regular Rate Abdomen: Normal Bowel Sounds, Soft, No Tenderness Extremities: No Edema Skin: Other (incision covered with dressing) Neuro: Sensation Intact, Other (Decreased sensation to light touch in legs Strength 4-/5) Psych/Mental Status: Mental Status NL AMBROSIO LACEY MD Oct 13, 2018 13:38
--- NOTE | 2018-10-13 13:50 | ST Cognitive Linguistic Eval ---
Speech Evaluation-General Medical Diagnosis non traumatic spinal cord dysfunction Onset Date: Oct 10, 2018 Therapy Diagnosis Therapy Diagnosis: Cognitive-communication Precautions Precautions: Aspiration Precautions/Isolations: Standard Precautions Medical History Pertinent Medical History: Arthritis, CABG, CAD, DM, GERD, HTN, Hypothroidism Reviewed History: Yes Social History Current Living Status: Alone Speech PLF-Current Status Prior Level of Function Patient lived in her own apartment prior to hospital admission. She was independent for daily tasks at that time. Subjective Patient was alert and participated in the evaluation process without difficulty. Language Eval: Auditory Comprehends Simple Yes/No Ques: Mild Follows 1-Step Commands: Mild Follows Complex Directions: Moderate Follows General Conversations: Moderate Language Eval: Verbal Language Completes Spontaneous Greeting: Functional Produces Auto, Serial Info: Moderate Imitates Simple Words/Phrases: Mild Word Finding: Mild Requests Basic Needs: Mild States Basic Personal Info: Mild Expresses Complex Ideas: Moderate Objective Cognitive Domain Attention: WNL Memory: Moderate Problem Solving: Moderate Executive Functions: Moderate Objective Formal/Standardized Tests [facility] Cognitive-Communication Results Memory: Immediate: 2/3, Delayed with cues 1/3, Orientation: Self only, Problem Solving: Simple: 4/5, Auditory Comprehension: 3/5, Comparisons: 1/3, Sequencing : 0/2 Oral Motor/Speech Production Mildly dysfluent Impression Patient is a 63 year old female who was admitted to ARU post neck surgery. Patient presents with moderate confusion for all daily tasks and personal history. Patient was pleasant and cooperative with evaluation process. Patient exhibits deficits in memory, sequencing, problem solving and auditory processing. Vocal quality is gurgly and patient exhibited difficulty with clearing her throat. Patient is currently wearing a hard collar which may be infringing on her speech and swallow abilities. Communication/Social Cognition Comprehension: 2 Expression: 2 Social Interaction: 3 Problem Solvin Memory: 2 Speech Patient Assess Expression of Ideas/Wants: Frequently (2) Understanding Verbal Content: Sometimes Understands(2) Brief Interview-Mental Status: Yes Repetition of Three Words: Two (2) Recall : Wear to say "Sock": No, could not recall (0) Recall : Color: Yes, after cueing (1) Recall : Bed: No, could not recall (0) Speech Short Term Goals Short Term Goals Short Term Goals 1) Patient will complete memory tasks related to her daily needs with 80% or greater. 2) Patient will demonstrate follow through with problem solving skills at 80% or greater. 3) Patient will be able to effectively communicate her wants/needs with 80% or greater. Speech Buckle Wire Inserter Goals Buckle Wire Inserter Goals Patient will increase functional memory, problem solving, sequencing and auditory processing for safety awareness and independence. Speech-Plan Patient/Family Goals Patient/Family Goals: Patient plans to return home with family support post rehab. Treatment Plan Speech Therapy Treatment Plan: Continue Plan of Care Patient is very involved medically and is recommended for skilled ST services for memory, sequencing, problem solving and auditory processing. Treatment Duration: Oct 21, 2018 Frequency: 5 times per week Estimated Hrs Per Day: .5 hour per day Rehab Potential: Fair Barriers to Learning: Medically complex with cognitive deficits. Pt/Family Agrees to Plan: Yes Safety Risks/Education Teaching Recipient: Patient Teaching Methods: Discussion Response to Teaching: Verbalize Understanding Education Topics Provided: Skilled services Time Speech Therapy Time In: 13:00 Speech Therapy Time Out: 13:30 Total Billed Time: 30 Billed Treatment Time 1, MICHELLE Ruiz Oct 13, 2018 13:50
--- NOTE | 2018-10-13 13:58 | Occupational Therapy Eval ---
OT Evaluation-General/PLF Medical Diagnosis Admission Date Oct 13, 2018 at 10:10 Medical Diagnosis: non traumatic spinal cord dysfunction Onset Date: Oct 10, 2018 Therapy Diagnosis Therapy Diagnosis: decr self care, weakness, decr funct mob, decr act mathew, decr cognition Height/Weight Height (Feet): 5 Height (Inches): 7.00 Weight (Pounds): 272 Weight (Ounces): 0.0 Precautions Precautions/Isolations: Standard Precautions Referral Physician: Denzel Referral Reason: Evaluation/Treatment Medical History Pertinent Medical History: Arthritis, CABG, CAD, DM, GERD, HTN, Hypothroidism Additional Medical History R shoulder rotator cuff repair x2, bilat CTA, bilat elbow surgery. Depression, anxiety. SOB. DDD. Lower back pain with burning. Bilat leg pain, numbness/ tingling legs and feet. Neck pain that radiates to both arms, with numbness and tingling. Current History ACDF C4-7 and corpectomy on 10-10-18. Reported difficulty swallowing. Reviewed History: Yes Social History [facility] Current Living Status: Alone Entry Into Home: Level Entry ADL-Prior Level of Function Therapy Code Descriptions/Definitions Functional [place] Measure: 0=Not Assessed/NA 4=Minimal Assistance 1=Total Assistance 5=Supervision or Setup 2=Maximal Assistance 6=Modified [place] 3=Moderate Assistance 7=Complete [place] Therapy Quality Codes: 6 Independent with activity with or without an assistive device 5 Patient requires set up or clean up by helper. Patient completes activity by themselves 4 Supervision or touching assist (CGA). [place] provide cues , steadying assist 3 The helper provides less than half the effort to complete the activity 2 The helper provides more than half the effort to complete the activity 1 Dependent. The helper does all the effort to complete an activity 7 Patient refused to complete or attempt activity 9 The patient did not perform the activity before the current illness or injury 88 Not attempted due to Medical conditions or safety concerns Functional Abilities and Goals: Independent: Patient completed the activities by him/herself, with or without an assistive device, with no assistance from a helper. Needed Some Help: Patient needed partial assistance from another person to complete activities. Dependent: A helper completed the activities for the patient. Unknown: Not Applicable: ADL PLOF Comments Pt reported that she has been able to manage all her basic self care needs but has some trouble putting on her PORFIRIO and support hose and managing buttons. She said that she is occasionally incontinent of urine. She is able to do light housekeeping, laundry, cooking but they all take extra time. She is disabled and still drives. Her sister reported that she normally has a little confusion but is much worse today. Her sister and a few friends help "keep an eye on her". Self Care: Needed Some Help Functional Cognition: Needed Some Help DME/Equipment: Bath Chair, Grab Bars, Shower, Tall Toilet OT Current Status Subjective Pt seen in room, up in recliner, eyes closed, agreeable to OT. Pain reported 8/ 10 in middle of neck. She thought she couldn't have pain medicine while on this unit but nursing confirmed to her that she just couldn't have any pain meds right now (it was too soon). Appearance Alert, cooperative, confused Mental Status/Objective Patient Orientation: Person, Situation Attachments: Central Line, Drains (anterior neck) Current Glasses/Contacts: Yes Hearing Aids: No Dentures/Partials: No Hand Dominance: Right Upper Extremity ROM Grossly WFL except limited to about 90 degrees at shoulders Upper Extremity Sensation Pt reported some numbness and tingling in fingers, mainly ring and little fingers Upper Extremity Strength Grossly 4/5 bilat ADL-Treatment ADL-Current Pt declined shower but agreed to do a sponge bath and change clothes. Sit to stand CGA, FWW, cues for hand placement. Cues for sequencing bathing. Grabbed at gown randomly while OT was getting gown ready for laundry. Washed and dried all parts except lower legs, sponge bath, some cues for sequencing and to wash parts. Donned top with setup but needed CGA, FWW for standing to pull pants up. Unable to take socks off herself or put them on. Pt educ use of sock aid for donning sock. She was unable to put sock on device after demonstration and needed cues for every step. She got up from recliner with cues for hand placement on chair and recliner. She requested to walk and walked with CGA, FWW to commons area and back to her room to the bathroom. She was uncomfortable getting on low toilet so BSC placed over toilet and she was able to transfer on/ off with CGA, pt educ and cues for sequencing and hand placement. Able to complete hygiene with initiation cues. Walked back to recliner, with cues for hand placement to sit. Pt left up in recliner, legs elevated, sister ordering her lunch. Bathing (FIM): 4 (Washed and dried all parts except back and lower legs. CGA when standing to wash main and bottom, FWW. ) Shower/Bathe Self (QC): 3 Upper Body Dressing (FIM): 5 (setup to don top) Upper Body Dressing (QC): 5 Lower Body Dressing (FIM): 3 (Able to get pants off lower legs and put clean ones on, CGA when standing, FWW. Help needed to take socks off and put them back on.) Lower Body Dressing (QC): 4 On/Off Footwear (QC): 1 Toileting (FIM): 4 (CGA for standing for clothing management) Toileting Hygiene (QC): 4 (CGA) Toilet/Commode Transfer (FIM): 4 (CGA getting on and off BSC over toilet) Toilet Transfer (QC): 4 (CGA) Education OT Patient Education: Modified ADL techniques, Purpose of tx/functional activities, Rehab process, Safety issues, Transfer techniques, Use of adapted equipment Teaching Recipient: Patient Teaching Methods: Demonstration, Discussion Response to Teaching: Verbalize Understanding, Return Demonstration, Reinforcement Needed OT Short Term Goals Short Term Goals Time Frame: Oct 20, 2018 Eating(FIM): 5 Toileting(FIM): 5 Toilet/Commode Transfer(FIM): 5 Additional Short Term Goals: 1-Demonstrate ADL Tasks, 2-Verbalize Understanding , 3-ImproveStrength/Brendan 1=Demonstrate adherence to instructed precautions during ADL tasks. 2=Patient will verbalize/demonstrate understanding of assistive devices/ modifications for ADL. 3=Patient will improve strength/tolerance for activity to enable patient to perform ADL's. OT Punch Hand Goals Intermediate Goals Time Frame: Oct 29, 2018 Eating (FIM): 7 Eating (QC): 6 Groomin Oral Hygiene (QC): 6 Bathing(FIM): 6 Shower/Bathe Self (QC): 6 Upper Body Dressing(FIM): 6 Upper Body Dressing (QC): 6 Lower Body Dressing(FIM): 6 Lower Body Dressing (QC): 6 On/Off Footwear (QC): 6 Toileting(FIM): 6 Toileting Hygiene (QC): 6 Toilet/Commode Transfer(FIM): 6 Toilet/Commode Transfer (QC): 6 Shower Transfer(FIM): 6 Additional Goals: 1-Demonstrate ADL Tasks, 2-Verbalize Understanding, 3- ImproveStrength/Brendan 1=Demonstrate adherence to instructed precautions during ADL tasks. 2=Patient will verbalize/demonstrate understanding of assistive devices/ modifications for ADL. 3=Patient will improve strength/tolerance for activity to enable patient to perform ADL's. OT Education/Plan Problem List/Assessment Assessment: Decreased Activ Tolerance, Decreased UE Strength, Dependent Transfers, Impaired Cognition, Impaired Self-Care Skills Pt would benefit from skilled OT to increase her independence in basic self care to allow her to safely return home Discharge Recommendations Plan/Recommendations: Continue POC Treatment Plan/Plan of Care Treatment,Training & Education: Yes Patient would benefit from OT for education, treatment and training to promote independence in ADL's, mobility, safety and/or upper extremity function for ADL' s. Plan of Care: ADL Retraining, Functional Mobility, Group Exercise/Act as Ind ( education, exercise, memory, socialization, functional activities, activity tolerance), UE Funct Exercise/Act, UE Neuromus Re-Ed/Coord, OTHER (energy conservation education) Treatment Duration: Oct 29, 2018 Frequency: At least 5 of 7 days/Wk (IRF) Estimated Hrs Per Day: 1.5 hours per day (1.25 to 1.5) Agreement: Yes Rehab Potential: Fair Time/GCodes Start Time: 11:10 Stop Time: 12:20 Total Time Billed (hr/min): 70 Billed Treatment Time visit, 10 minutes evaluation moderate intensity, 60 minutes ADL MELANIA HUANG OT Oct 13, 2018 13:58
--- NOTE | 2018-10-13 14:17 | Physical Therapy Daily Note ---
PT Daily Note-Current Subjective Patient is more alert and agreeable to participate with PT this p.m. Pain Numeric Pain Scale: 5-Moderate Pain Location Body Site: Neck Pain Description: Acute, Chronic Mental Status Patient Orientation: Person, Time, Situation Transfers Therapy Code Descriptions/Definitions Functional [place] Measure: 0=Not Assessed/NA 4=Minimal Assistance 1=Total Assistance 5=Supervision or Setup 2=Maximal Assistance 6=Modified [place] 3=Moderate Assistance 7=Complete [place] Therapy Quality Codes: 6 Independent with activity with or without an assistive device 5 Patient requires set up or clean up by helper. Patient completes activity by themselves 4 Supervision or touching assist (CGA). [place] provide cues , steadying assist 3 The helper provides less than half the effort to complete the activity 2 The helper provides more than half the effort to complete the activity 1 Dependent. The helper does all the effort to complete an activity 7 Patient refused to complete or attempt activity 9 The patient did not perform the activity before the current illness or injury 88 Not attempted due to Medical conditions or safety concerns Transfers (B, C, W/C) (FIM): 5 Scootin Sit to/from Stand: 5 Sit to Stand (QC): 5 Weight Bearing Right Lower Extremity: Right Full Weight Bearing Left Lower Extremity: Left Full Weight Bearing Gait Training Does the Patient Walk?: Yes Gait (FIM): 5 Distance (FIM): 3=150 ft Distance: 150' x 2 Walk 10 feet (QC): 5 Walk 50 ft with 2 Turns(QC): 5 Walk 150 ft (QC): 5 Gait Level of Assist: 5 Gait Assistive Device: FWW functional gait sequence with no deviation Exercises Seated Therapy Exercises: Ankle pumps, Long arc quads, Hip flexion Seated Reps: 15 (2 sets) Assessment Patient progressing with treatment plan and is more alert and cooperative with therapy this p.m. PT to increase activity as tolerated by patient. PT Science Analyst Goals Alf Goals PT Science Analyst Goals Time Frame: Oct 29, 2018 Transfers (B,C,W/C) (FIM): 6 Sit to Lying (QC): 6 Lying-Sitting on Side/Bed(QC): 6 Sit to Stand (QC): 6 Rollin Roll Left to Right (QC): 6 Chair/Ipk-he-[place] Xfer(QC): 6 Car Transfer (QC): 6 Does the Patient Walk: Yes Gait (FIM): 6 Gait distance (FIM): 3=150 ft Distance: 175' Walk 10 feet (QC): 6 Walk 10ft-Uneven Surface(QC): 6 Walk 50ft with 2 Turns (QC): 6 Walk 150 ft (QC): 6 Gait Level of Assist: 6 Gait Assistive Device: FWW Does the Pt use WC or Scooter?: No Stairs (FIM): 1 # of Steps: 1 1 Step (curb) (QC): 5 4 Steps (QC): 9 12 Steps (QC): 9 Stairs Level Of Assist: 5 Picking up an Object (QC): 5 PT Plan Treatment/Plan Treatment Plan: Continue Plan of Care Treatment Plan: Bed Mobility, Education, Functional Activity Brendan, Functional Strength, Group Therapy, Gait, Safety, Therapeutic Exercise, Transfers Treatment Duration: Oct 29, 2018 Frequency: At least 5 of 7 days/Wk (IRF) Estimated Hrs Per Day: 1.5 hours per day Patient and/or Family Agrees t: Yes Time/GCodes Time In: 1340 Time Out: 1400 Total Billed Treatment Time: 20 Total Billed Treatment 1 visit FA 20 min IAN ALLEN PT Oct 13, 2018 14:17
[2018-10-13] MEDS ORDERED: inSUlin ASPART (NovoLOG) 1 UNIT/0.01 ML (CHARGE PER UNIT) SC SCH (16:00)
[2018-10-13 16:06] VITALS: BP 160/79
[2018-10-13] MEDS: ENOXAPARIN 30 MG/0.3 ML (LOVENOX) SYR SC SCH (17:20)
[2018-10-13] MEDS: oxyCODONE/APAP 5/325MG (PERCOCET 5) TABLET PO PRN (17:30)
[2018-10-13] MEDS ORDERED: CHLORASEPTIC SPRAY 177 ML LIQUID MC PRN (18:00)
[2018-10-13] MEDS: inSUlin DETERMIR 1 UNIT/0.01 ML (LEVEMIR) CHARGE PER UNIT SQ SCH (20:36)
[2018-10-13] MEDS: QUEtiapine 25 MG (SEROquel) TAB IMMEDIATE RELEASE PO SCH (20:40)
[2018-10-13] MEDS: inSUlin ASPART (NovoLOG) 1 UNIT/0.01 ML (CHARGE PER UNIT) SC SCH (20:40)
[2018-10-13] MEDS: DIVALPROEX 250 MG DELAYED RELEASE (DEPAKOTE) TAB PO SCH (20:40)
[2018-10-13] MEDS: traZODone 100 MG (DESYREL) TAB PO SCH (20:40)
[2018-10-13] MEDS: ATORVASTATIN 80 MG (LIPITOR) TABLET PO SCH (20:40)
[2018-10-13] MEDS: PANTOPRAZOLE 40 MG (PROTONIX) TAB PO SCH (20:40)
[2018-10-13] MEDS: PREGABALIN 25 MG (LYRICA) NON-STOCK STRENGTH PO SCH (20:41)
[2018-10-13] MEDS ORDERED: inSUlin DETERMIR 1 UNIT/0.01 ML (LEVEMIR) CHARGE PER UNIT SQ SCH (21:00)
[2018-10-14 05:35] VITALS: BP 168/80
[2018-10-14] MEDS: MULTIVIT W/MINERALS TAB (THERAGRAN M) PO SCH (06:13)
[2018-10-14] MEDS: inSUlin ASPART (NovoLOG) 1 UNIT/0.01 ML (CHARGE PER UNIT) SC SCH ×4 (06:13→20:59)
[2018-10-14] MEDS: PANTOPRAZOLE 40 MG (PROTONIX) TAB PO SCH ×2 (06:13→20:23)
[2018-10-14] MEDS: ACETAMINOPHEN 325 MG TABLET PO PRN (06:14)
[2018-10-14] MEDS: ALPRAZolam 0.5 MG (XANAX) TAB PO PRN ×2 (06:14→20:23)
[2018-10-14] MEDS: LEVOTHYROXINE 75 MCG (LEVOTHROID) TABLET PO SCH (06:14)
[2018-10-14 06:20] LABS: BILIRUBIN,URINE NEGATIVE (NEGATIVE); CLARITY,URINE CLEAR; COLOR,URINE YELLOW; GLUCOSE, URINE (UA) NEGATIVE (NEGATIVE); KETONES,URINE NEGATIVE (NEGATIVE); LEUKOCYTE ESTERASE ,URINE NEGATIVE (NEGATIVE); NITRITE,URINE NEGATIVE (NEGATIVE); PH,URINE 5 (5-9); PROTEIN,URINE 2+ (NEGATIVE); UROBILINOGEN,URINE NORMAL (NORMAL)
[2018-10-14 06:32] LABS: BACTERIA,URINE TRACE /HPF; RBC,URINE RARE /HPF; SQUAMOUS EPITHELIAL CELL,UR RARE /HPF
[2018-10-14] MEDS: lisINopril 5 MG (PRINIVIL) TABLET PO SCH (08:23)
[2018-10-14] MEDS: VENlafaxine 75 MG (EFFEXOR) TAB PO SCH (08:23)
[2018-10-14] MEDS: VENlafaxine 37.5 MG (EFFEXOR) TAB PO SCH (08:23)
[2018-10-14] MEDS: DULoxetine 30 MG (CYMBALTA) CAP PO SCH (08:23)
[2018-10-14] MEDS ORDERED: CLOP75TA28 PO (10:24)
[2018-10-14] MEDS ORDERED: VENL75CA93 PO (10:24)
[2018-10-14] MEDS ORDERED: VENL-48 PO (10:24)
[2018-10-14] MEDS: PREGABALIN 25 MG (LYRICA) NON-STOCK STRENGTH PO SCH ×2 (11:13→20:06)
--- NOTE | 2018-10-14 12:51 | Physical Therapy Daily Note ---
PT Daily Note-Current Subjective Patient reluctantly agrees to PT. She report she has company and does not want to work with PT. This PT educated patient on ARU and medicare requirements. Patient agrees. Pain Numeric Pain Scale: 7 Location Body Site: Neck Pain Description: Acute Mental Status Patient Orientation: Confused Transfers Therapy Code Descriptions/Definitions Functional [place] Measure: 0=Not Assessed/NA 4=Minimal Assistance 1=Total Assistance 5=Supervision or Setup 2=Maximal Assistance 6=Modified [place] 3=Moderate Assistance 7=Complete [place] Therapy Quality Codes: 6 Independent with activity with or without an assistive device 5 Patient requires set up or clean up by helper. Patient completes activity by themselves 4 Supervision or touching assist (CGA). [place] provide cues , steadying assist 3 The helper provides less than half the effort to complete the activity 2 The helper provides more than half the effort to complete the activity 1 Dependent. The helper does all the effort to complete an activity 7 Patient refused to complete or attempt activity 9 The patient did not perform the activity before the current illness or injury 88 Not attempted due to Medical conditions or safety concerns Transfers (B, C, W/C) (FIM): 5 Scootin Rollin Roll Left to Right (QC): 5 Supine to/from Sit: 5 Sit to/from Stand: 5 Sit to Lying (QC): 5 Sit to Stand (QC): 5 Chair/Ttm-lt-Kbgoe Xfer(QC): 5 Bed to/from Chair: 5 Car Transfer (QC): 5 Weight Bearing Right Lower Extremity: Right Full Weight Bearing Left Lower Extremity: Left Full Weight Bearing Gait Training Does the Patient Walk?: Yes Gait (FIM): 5 Distance (FIM): 3=150 ft Distance: 150' x 6 Walk 10 feet (QC): 5 Walk 50 ft with 2 Turns(QC): 5 Walk 150 ft (QC): 5 Walking 10ft/uneven surface-QC: 5 Gait Level of Assist: 5 Gait Assistive Device: FWW safe and functional with no deviation Stair Training Stair Training: Handrails/: 2 handrails Stairs (FIM): 5 #of Steps: 8 1 Step (curb) (QC): 5 4 Steps (QC): 5 12 Steps (QC): 88 Stairs: Pattern: Step to (descending and reciprocal pattern ascending) Level of Assist: 5 Exercises Seated Therapy Exercises: Ankle pumps, Long arc quads, Hip flexion Seated Reps: 20 (2 sets) NuStep Minutes: 15 NuStep Workload: 2 (to increase strength and mobility) Assessment Patient becomes highly agitated if PT or friend corrects her due to her confusion. Patient reports she is not confused. PT to increase activity as tolerated by patient. PT Assisted Goals Assisted Goals PT Assisted Goals Time Frame: Oct 29, 2018 Transfers (B,C,W/C) (FIM): 6 Sit to Lying (QC): 6 Lying-Sitting on Side/Bed(QC): 6 Sit to Stand (QC): 6 Rollin Roll Left to Right (QC): 6 Chair/Qjk-qy-Pnmyx Xfer(QC): 6 Car Transfer (QC): 6 Does the Patient Walk: Yes Gait (FIM): 6 Gait distance (FIM): 3=150 ft Distance: 175' Walk 10 feet (QC): 6 Walk 10ft-Uneven Surface(QC): 6 Walk 50ft with 2 Turns (QC): 6 Walk 150 ft (QC): 6 Gait Level of Assist: 6 Gait Assistive Device: FWW Does the Pt use WC or Scooter?: No Stairs (FIM): 1 # of Steps: 1 1 Step (curb) (QC): 5 4 Steps (QC): 9 12 Steps (QC): 9 Stairs Level Of Assist: 5 Picking up an Object (QC): 5 PT Plan Treatment/Plan Treatment Plan: Continue Plan of Care Treatment Plan: Bed Mobility, Education, Functional Activity Brendan, Functional Strength, Group Therapy, Gait, Safety, Therapeutic Exercise, Transfers Treatment Duration: Oct 29, 2018 Frequency: At least 5 of 7 days/Wk (IRF) Estimated Hrs Per Day: 1.5 hours per day Patient and/or Family Agrees t: Yes Time/GCodes Time In: 1110 Time Out: 1210 Total Billed Treatment Time: 60 Total Billed Treatment 1 visit FA x 2 35 min EX x 2 25 min IAN ALLEN PT Oct 14, 2018 12:51
--- NOTE | 2018-10-14 13:05 | Occupational Ther Daily Note ---
OT Current Status-Daily Note Subjective Pt seen in room, up in recliner, agreeable to OT. Pain reported 10/10 and said her throat was very sore. Declined for OT to ask for pain meds. Appearance Confused, questioning how she got here, why she is here, what day of the week it is, when she had surgery, etc. Reoriented by OT. Mental Status/Objective Therapy Code Descriptions/Definitions Functional [place] Measure: 0=Not Assessed/NA 4=Minimal Assistance 1=Total Assistance 5=Supervision or Setup 2=Maximal Assistance 6=Modified [place] 3=Moderate Assistance 7=Complete [place] ADL-Treatment Pt observed to get a drink and eat. 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 Declined a shower. Up from recliner without help, walked to bathroom SBA, FWW. On/off BSC over toilet with SBA, managing clothing and hygiene with SBA but with cues for walker placement and for sequencing. Walked to sink to brush teeth and comb hair. Became irritated with instructions to keep walked in front of her, stating, "That's not how I do it at home." OT explained that this is after surgery, with some difficulties iwth self care. Pt denies that she is confused or does not recall explanations. Therapy Code Descriptions/Definitions Functional [place] Measure: 0=Not Assessed/NA 4=Minimal Assistance 1=Total Assistance 5=Supervision or Setup 2=Maximal Assistance 6=Modified [place] 3=Moderate Assistance 7=Complete [place] Therapy Quality Codes: 6 Independent with activity with or without an assistive device 5 Patient requires set up or clean up by helper. Patient completes activity by themselves 4 Supervision or touching assist (CGA). [place] provide cues , steadying assist 3 The helper provides less than half the effort to complete the activity 2 The helper provides more than half the effort to complete the activity 1 Dependent. The helper does all the effort to complete an activity 7 Patient refused to complete or attempt activity 9 The patient did not perform the activity before the current illness or injury 88 Not attempted due to Medical conditions or safety concerns Eating (FIM): 7 Eating (QC): 6 Grooming (FIM): 5 (SBA, FWW at sink to groom, comb hair, wash hands and face) Oral Hygiene (QC): 4 (SBA) Toileting (FIM): 5 (SBA, BSC over toilet, to manage clothing and hygiene. Cues) Toilet/Commode Transfer (FIM): 5 (SBA, FWW, BSC over toilet) Other Treatment Pt walked with SBA, FWW to gym. Cues for hand placement for sit to stand. Pt completed arc activity and large peg table top activity without additional weights on arms, as well as6 minutes bilat UE exercise on FWW set at 10W resistance, all to strengthen arms to help with transfers and ADLs. Able to follow instructions but needed encouragement. Continued to be occasionally confused throughout tx. Pt walked back to room, left up in recliner with chair alarm on, all needs met, friend visiting. Education OT Patient Education: Modified ADL techniques, Progress toward Goal/Update tx plan, Purpose of tx/functional activities, Safety issues, Transfer techniques Teaching Recipient: Patient Teaching Methods: Discussion Response to Teaching: Verbalize Understanding, Reinforcement Needed OT Short Term Goals Short Term Goals Time Frame: Oct 20, 2018 Eating(FIM): 5 Toileting(FIM): 5 Toilet/Commode Transfer(FIM): 5 Additional Short Term Goals: 1-Demonstrate ADL Tasks, 2-Verbalize Understanding , 3-ImproveStrength/Brendan 1=Demonstrate adherence to instructed precautions during ADL tasks. 2=Patient will verbalize/demonstrate understanding of assistive devices/ modifications for ADL. 3=Patient will improve strength/tolerance for activity to enable patient to perform ADL's. OT Torpedo Specialist Goals Senior Living Goals Time Frame: Oct 29, 2018 Eating (FIM): 7 Eating (QC): 6 Groomin Oral Hygiene (QC): 6 Bathing(FIM): 6 Shower/Bathe Self (QC): 6 Upper Body Dressing(FIM): 6 Upper Body Dressing (QC): 6 Lower Body Dressing(FIM): 6 Lower Body Dressing (QC): 6 On/Off Footwear (QC): 6 Toileting(FIM): 6 Toileting Hygiene (QC): 6 Toilet/Commode Transfer(FIM): 6 Toilet/Commode Transfer (QC): 6 Shower Transfer(FIM): 6 Additional Goals: 1-Demonstrate ADL Tasks, 2-Verbalize Understanding, 3- ImproveStrength/Brendan 1=Demonstrate adherence to instructed precautions during ADL tasks. 2=Patient will verbalize/demonstrate understanding of assistive devices/ modifications for ADL. 3=Patient will improve strength/tolerance for activity to enable patient to perform ADL's. OT Education/Plan Problem List/Assessment Pt would benefit from skilled OT to increase her independence in basic self care to allow her to safely return home Discharge Recommendations Plan/Recommendations: Continue POC Treatment Plan/Plan of Care Patient would benefit from OT for education, treatment and training to promote independence in ADL's, mobility, safety and/or upper extremity function for ADL' s. Plan of Care: ADL Retraining, Functional Mobility, Group Exercise/Act as Ind ( education, exercise, memory, socialization, functional activities, activity tolerance), UE Funct Exercise/Act, UE Neuromus Re-Ed/Coord, OTHER (energy conservation education) Treatment Duration: Oct 29, 2018 Frequency: At least 5 of 7 days/Wk (IRF) Estimated Hrs Per Day: 1.5 hours per day (1.25 to 1.5) Agreement: Yes Rehab Potential: Fair Time/GCodes Start Time: 10:00 Stop Time: 11:00 Total Time Billed (hr/min): 60 Billed Treatment Time visit, 25 minutes ADL, 35 minutes exercise MELANIA HUANG OT Oct 14, 2018 13:05
[2018-10-14] MEDS: CHLORASEPTIC LOZENGE MM PRN (13:24)
[2018-10-14] MEDS: oxyCODONE/APAP 5/325MG (PERCOCET 5) TABLET PO PRN (13:27)
--- NOTE | 2018-10-14 14:11 | Physical Therapy Daily Note ---
PT Daily Note-Current Subjective Patient is emotional due to confusion. RN present educating patient on causes of confusion. Patient calms. Pain Numeric Pain Scale: 5-Moderate Pain Location Body Site: Neck Pain Description: Acute Mental Status Patient Orientation: Confused Transfers Therapy Code Descriptions/Definitions Functional [place] Measure: 0=Not Assessed/NA 4=Minimal Assistance 1=Total Assistance 5=Supervision or Setup 2=Maximal Assistance 6=Modified [place] 3=Moderate Assistance 7=Complete [place] Therapy Quality Codes: 6 Independent with activity with or without an assistive device 5 Patient requires set up or clean up by helper. Patient completes activity by themselves 4 Supervision or touching assist (CGA). [place] provide cues , steadying assist 3 The helper provides less than half the effort to complete the activity 2 The helper provides more than half the effort to complete the activity 1 Dependent. The helper does all the effort to complete an activity 7 Patient refused to complete or attempt activity 9 The patient did not perform the activity before the current illness or injury 88 Not attempted due to Medical conditions or safety concerns Transfers (B, C, W/C) (FIM): 5 Scootin Rollin Roll Left to Right (QC): 5 Supine to/from Sit: 5 Sit to/from Stand: 5 Sit to Lying (QC): 5 Sit to Stand (QC): 5 Chair/Snx-pe-Jsfaw Xfer(QC): 5 Bed to/from Chair: 5 Weight Bearing Right Lower Extremity: Right Full Weight Bearing Left Lower Extremity: Left Full Weight Bearing Gait Training Does the Patient Walk?: Yes Gait (FIM): 5 Distance (FIM): 3=150 ft Distance: 200' x 2 Walk 10 feet (QC): 5 Walk 50 ft with 2 Turns(QC): 5 Walk 150 ft (QC): 5 Gait Level of Assist: 5 Gait Assistive Device: FWW safe and functional with FWW Exercises Standing: Heel/toe raises, 3 way Ex=Flex, Abd, Ext Assessment Patient progressing with treatment plan, however, is confused and emotional. PT to increase activity as tolerated by patient. PT Head Of Sales Promotion Goals Correction Goals PT Head Of Sales Promotion Goals Time Frame: Oct 29, 2018 Transfers (B,C,W/C) (FIM): 6 Sit to Lying (QC): 6 Lying-Sitting on Side/Bed(QC): 6 Sit to Stand (QC): 6 Rollin Roll Left to Right (QC): 6 Chair/Aah-ug-Qjuzq Xfer(QC): 6 Car Transfer (QC): 6 Does the Patient Walk: Yes Gait (FIM): 6 Gait distance (FIM): 3=150 ft Distance: 175' Walk 10 feet (QC): 6 Walk 10ft-Uneven Surface(QC): 6 Walk 50ft with 2 Turns (QC): 6 Walk 150 ft (QC): 6 Gait Level of Assist: 6 Gait Assistive Device: FWW Does the Pt use WC or Scooter?: No Stairs (FIM): 1 # of Steps: 1 1 Step (curb) (QC): 5 4 Steps (QC): 9 12 Steps (QC): 9 Stairs Level Of Assist: 5 Picking up an Object (QC): 5 PT Plan Treatment/Plan Treatment Plan: Continue Plan of Care Treatment Plan: Bed Mobility, Education, Functional Activity Brendan, Functional Strength, Group Therapy, Gait, Safety, Therapeutic Exercise, Transfers Treatment Duration: Oct 29, 2018 Frequency: At least 5 of 7 days/Wk (IRF) Estimated Hrs Per Day: 1.5 hours per day Patient and/or Family Agrees t: Yes Time/GCodes Time In: 1334 Time Out: 1404 Total Billed Treatment Time: 30 Total Billed Treatment 1 visit FA 13 min EX 17 min IAN ALLEN PT Oct 14, 2018 14:11
--- NOTE | 2018-10-14 15:07 | Occupational Ther Daily Note ---
OT Current Status-Daily Note Subjective Pt alert, sitting in recliner. Visitor present in room. Pt agrees to therapy. Mental Status/Objective Patient Orientation: Person, Time Therapy Code Descriptions/Definitions Functional [place] Measure: 0=Not Assessed/NA 4=Minimal Assistance 1=Total Assistance 5=Supervision or Setup 2=Maximal Assistance 6=Modified [place] 3=Moderate Assistance 7=Complete [place] Attachments: IV, Other-See Comments (neck brace) ADL-Treatment Therapy Code Descriptions/Definitions Functional [place] Measure: 0=Not Assessed/NA 4=Minimal Assistance 1=Total Assistance 5=Supervision or Setup 2=Maximal Assistance 6=Modified [place] 3=Moderate Assistance 7=Complete [place] Therapy Quality Codes: 6 Independent with activity with or without an assistive device 5 Patient requires set up or clean up by helper. Patient completes activity by themselves 4 Supervision or touching assist (CGA). [place] provide cues , steadying assist 3 The helper provides less than half the effort to complete the activity 2 The helper provides more than half the effort to complete the activity 1 Dependent. The helper does all the effort to complete an activity 7 Patient refused to complete or attempt activity 9 The patient did not perform the activity before the current illness or injury 88 Not attempted due to Medical conditions or safety concerns Other Treatment Therapy sponge given to pt for use in room. Pt completed fine motor strengthening exercises with verbal and gestural cues for proper movements. 10 reps 1 set. Pt instructed to complete throughout the day. After therapy, pt sitting in recliner with call light/phone in reach. All needs met in room. Visitor present in room. OT Short Term Goals Short Term Goals Time Frame: Oct 20, 2018 Eating(FIM): 5 Toileting(FIM): 5 Toilet/Commode Transfer(FIM): 5 Additional Short Term Goals: 1-Demonstrate ADL Tasks, 2-Verbalize Understanding , 3-ImproveStrength/Brendan 1=Demonstrate adherence to instructed precautions during ADL tasks. 2=Patient will verbalize/demonstrate understanding of assistive devices/ modifications for ADL. 3=Patient will improve strength/tolerance for activity to enable patient to perform ADL's. OT Alf Goals Alf Goals Time Frame: Oct 29, 2018 Eating (FIM): 7 Eating (QC): 6 Groomin Oral Hygiene (QC): 6 Bathing(FIM): 6 Shower/Bathe Self (QC): 6 Upper Body Dressing(FIM): 6 Upper Body Dressing (QC): 6 Lower Body Dressing(FIM): 6 Lower Body Dressing (QC): 6 On/Off Footwear (QC): 6 Toileting(FIM): 6 Toileting Hygiene (QC): 6 Toilet/Commode Transfer(FIM): 6 Toilet/Commode Transfer (QC): 6 Shower Transfer(FIM): 6 Additional Goals: 1-Demonstrate ADL Tasks, 2-Verbalize Understanding, 3- ImproveStrength/Brendan 1=Demonstrate adherence to instructed precautions during ADL tasks. 2=Patient will verbalize/demonstrate understanding of assistive devices/ modifications for ADL. 3=Patient will improve strength/tolerance for activity to enable patient to perform ADL's. OT Education/Plan Problem List/Assessment Pt would benefit from skilled OT to increase her independence in basic self care to allow her to safely return home Discharge Recommendations Plan/Recommendations: Continue POC Treatment Plan/Plan of Care Patient would benefit from OT for education, treatment and training to promote independence in ADL's, mobility, safety and/or upper extremity function for ADL' s. Plan of Care: ADL Retraining, Functional Mobility, Group Exercise/Act as Ind ( education, exercise, memory, socialization, functional activities, activity tolerance), UE Funct Exercise/Act, UE Neuromus Re-Ed/Coord, OTHER (energy conservation education) Treatment Duration: Oct 29, 2018 Frequency: At least 5 of 7 days/Wk (IRF) Estimated Hrs Per Day: 1.5 hours per day (1.25 to 1.5) Agreement: Yes Rehab Potential: Fair Time/GCodes Start Time: 13:00 Stop Time: 13:15 Total Time Billed (hr/min): 15 Billed Treatment Time 1 visit-EX 1 (15 min) EFREM CHOU Oct 14, 2018 15:07
--- NOTE | 2018-10-14 15:44 | Speech Therapy Daily Note ---
Speech Daily Progress Note Subjective Date Seen by Provider: Oct 14, 2018 Time Seen by Provider: 00:30 Patient was resting in her bed when I entered her room. Assessment Assessment Current Status: Fair Progress Treatment Plan Continue Plan of Care Communication Comprehension: 2 Expression: 2 Social Cognition Social Interaction: 3 Problem Solvin Memory: 2 Speech Short Term Goals Short Term Goals Short Term Goals 1) Patient will complete memory tasks related to her daily needs with 80% or greater. 2) Patient will demonstrate follow through with problem solving skills at 80% or greater. 3) Patient will be able to effectively communicate her wants/needs with 80% or greater. Speech Correction Goals Correction Goals Patient will increase functional memory, problem solving, sequencing and auditory processing for safety awareness and independence. Speech-Plan Patient/Family Goals Patient/Family Goals: Patient plans to return home with family support post rehab. Treatment Plan Speech Therapy Treatment Plan: Continue Plan of Care Patient appeared to be slightly more oriented today. Treatment Duration: Oct 21, 2018 Frequency: 5 times per week Estimated Hrs Per Day: .5 hour per day Rehab Potential: Fair Barriers to Learning: Patient has been disoriented to time and place. Pt/Family Agrees to Plan: Yes Safety Risks/Education Teaching Recipient: Patient Teaching Methods: Discussion Response to Teaching: Verbalize Understanding Education Topics Provided: Safety and utilization of call light. Time Speech Therapy Time In: 15:00 Speech Therapy Time Out: 15:30 Total Billed Time: 30 Billed Treatment Time 1ETELVINA BETHANIA ST Oct 14, 2018 15:44
[2018-10-14] MEDS: ENOXAPARIN 30 MG/0.3 ML (LOVENOX) SYR SC SCH (17:00)
[2018-10-14 17:49] VITALS: BP_SYST 150; BP_SYST 170; BP_DIAS 67; BP_DIAS 84
[2018-10-14] MEDS: QUEtiapine 25 MG (SEROquel) TAB IMMEDIATE RELEASE PO SCH (20:23)
[2018-10-14] MEDS: ATORVASTATIN 80 MG (LIPITOR) TABLET PO SCH (20:23)
[2018-10-14] MEDS: traZODone 100 MG (DESYREL) TAB PO SCH (20:23)
[2018-10-14] MEDS: DIVALPROEX 250 MG DELAYED RELEASE (DEPAKOTE) TAB PO SCH (20:23)
[2018-10-14] MEDS: inSUlin DETERMIR 1 UNIT/0.01 ML (LEVEMIR) CHARGE PER UNIT SQ SCH (20:59)
[2018-10-15 05:07] VITALS: BP 172/89
[2018-10-15] MEDS: inSUlin ASPART (NovoLOG) 1 UNIT/0.01 ML (CHARGE PER UNIT) SC SCH ×4 (05:55→20:43)
[2018-10-15] MEDS: LEVOTHYROXINE 75 MCG (LEVOTHROID) TABLET PO SCH (06:03)
[2018-10-15] MEDS: PANTOPRAZOLE 40 MG (PROTONIX) TAB PO SCH ×2 (06:03→20:42)
[2018-10-15] MEDS: MULTIVIT W/MINERALS TAB (THERAGRAN M) PO SCH (06:03)
[2018-10-15] MEDS: CHLORASEPTIC LOZENGE MM PRN (09:09)
[2018-10-15] MEDS: VENlafaxine 75 MG (EFFEXOR) TAB PO SCH (09:10)
[2018-10-15] MEDS: lisINopril 5 MG (PRINIVIL) TABLET PO SCH (09:10)
[2018-10-15] MEDS: DULoxetine 30 MG (CYMBALTA) CAP PO SCH (09:10)
[2018-10-15] MEDS: oxyCODONE/APAP 5/325MG (PERCOCET 5) TABLET PO PRN (09:32)
--- NOTE | 2018-10-15 10:33 | Occupational Ther Daily Note ---
OT Current Status-Daily Note Subjective No pain reported. Appearance Pt. up in chair. Agreeable to shower. Mental Status/Objective Therapy Code Descriptions/Definitions Functional [place] Measure: 0=Not Assessed/NA 4=Minimal Assistance 1=Total Assistance 5=Supervision or Setup 2=Maximal Assistance 6=Modified [place] 3=Moderate Assistance 7=Complete [place] J-collar ADL-Treatment Therapy Code Descriptions/Definitions Functional [place] Measure: 0=Not Assessed/NA 4=Minimal Assistance 1=Total Assistance 5=Supervision or Setup 2=Maximal Assistance 6=Modified [place] 3=Moderate Assistance 7=Complete [place] Therapy Quality Codes: 6 Independent with activity with or without an assistive device 5 Patient requires set up or clean up by helper. Patient completes activity by themselves 4 Supervision or touching assist (CGA). [place] provide cues , steadying assist 3 The helper provides less than half the effort to complete the activity 2 The helper provides more than half the effort to complete the activity 1 Dependent. The helper does all the effort to complete an activity 7 Patient refused to complete or attempt activity 9 The patient did not perform the activity before the current illness or injury 88 Not attempted due to Medical conditions or safety concerns Grooming (FIM): 5 (SBA to brush teeth and hair while seated at sink.) Oral Hygiene (QC): 4 Bathing (FIM): 4 (collar is carefully removed for pt. just long enough for OT to wash hair and dry area. Collar re-applied. Pt. able to wash all other parts while seated in shower.) Shower/Bathe Self (QC): 4 Upper Body (FIM): 3 (Pt. requires assistance to don collar and button up shirt. Pt. is able to put shirt on that has some buttons buttoned. However, has to adjust it and then has difficulty buttoning the rest.) Upper Body Dressing (QC): 3 Lower Body Dressing (FIM): 3 (Pt. requires mod assist overall to don brief, pants, and shoes.) Lower Body Dressing (QC): 3 On/Off Footwear (QC): 2 Toileting (FIM): 5 (SBA to toilet self.) Toileting Hygiene (QC): 4 Transfers (B, C, W/C) (FIM): 5 Toilet/Commode Transfer (FIM): 5 Toilet Transfer (QC): 4 Shower Transfer(FIM): 5 Education OT Patient Education: Correct positioning, Modified ADL techniques, Progress toward Goal/Update tx plan, Purpose of tx/functional activities, Reviewed precautions, Rehab process, Transfer techniques Teaching Recipient: Patient Teaching Methods: Demonstration, Discussion Response to Teaching: Verbalize Understanding, Return Demonstration OT Short Term Goals Short Term Goals Time Frame: Oct 20, 2018 Eating(FIM): 5 Toileting(FIM): 5 Toilet/Commode Transfer(FIM): 5 Additional Short Term Goals: 1-Demonstrate ADL Tasks, 2-Verbalize Understanding , 3-ImproveStrength/Brendan 1=Demonstrate adherence to instructed precautions during ADL tasks. 2=Patient will verbalize/demonstrate understanding of assistive devices/ modifications for ADL. 3=Patient will improve strength/tolerance for activity to enable patient to perform ADL's. OT Senior Care Goals [place] Setter Goals Time Frame: Oct 29, 2018 Eating (FIM): 7 Eating (QC): 6 Groomin Oral Hygiene (QC): 6 Bathing(FIM): 6 Shower/Bathe Self (QC): 6 Upper Body Dressing(FIM): 6 Upper Body Dressing (QC): 6 Lower Body Dressing(FIM): 6 Lower Body Dressing (QC): 6 On/Off Footwear (QC): 6 Toileting(FIM): 6 Toileting Hygiene (QC): 6 Toilet/Commode Transfer(FIM): 6 Toilet/Commode Transfer (QC): 6 Shower Transfer(FIM): 6 Additional Goals: 1-Demonstrate ADL Tasks, 2-Verbalize Understanding, 3- ImproveStrength/Brendan 1=Demonstrate adherence to instructed precautions during ADL tasks. 2=Patient will verbalize/demonstrate understanding of assistive devices/ modifications for ADL. 3=Patient will improve strength/tolerance for activity to enable patient to perform ADL's. OT Education/Plan Problem List/Assessment Assessment: Decreased Activ Tolerance, Impaired I ADL's, Impaired Self-Care Skills Pt would benefit from skilled OT to increase her independence in basic self care to allow her to safely return home Discharge Recommendations Plan/Recommendations: Continue POC Therapy D/C Recommendations: Home w/ Family Support, Occupational Therapy Home Care Equpiment Recommendations-D/C: Hip Kit Treatment Plan/Plan of Care Treatment,Training & Education: Yes Patient would benefit from OT for education, treatment and training to promote independence in ADL's, mobility, safety and/or upper extremity function for ADL' s. Plan of Care: ADL Retraining, Functional Mobility, Group Exercise/Act as Ind ( education, exercise, memory, socialization, functional activities, activity tolerance), UE Funct Exercise/Act, UE Neuromus Re-Ed/Coord, OTHER (energy conservation education) Treatment Duration: Oct 29, 2018 Frequency: At least 5 of 7 days/Wk (IRF) Estimated Hrs Per Day: 1.5 hours per day (1.25 to 1.5) Agreement: Yes Rehab Potential: Fair Time/GCodes Start Time: 08:00 Stop Time: 09:00 Total Time Billed (hr/min): 60 Billed Treatment Time 1, ADL x 4 EL SINGH OT Oct 15, 2018 10:33
--- NOTE | 2018-10-15 10:51 | Physical Therapy Daily Note ---
PT Daily Note-Current Subjective Pain rated 9/10 neck and shoulders. Pt agreeable to PT. Mental Status Patient Orientation: Person, Place, Situation Neck brace in place Transfers Therapy Code Descriptions/Definitions Functional [place] Measure: 0=Not Assessed/NA 4=Minimal Assistance 1=Total Assistance 5=Supervision or Setup 2=Maximal Assistance 6=Modified [place] 3=Moderate Assistance 7=Complete [place] Therapy Quality Codes: 6 Independent with activity with or without an assistive device 5 Patient requires set up or clean up by helper. Patient completes activity by themselves 4 Supervision or touching assist (CGA). [place] provide cues , steadying assist 3 The helper provides less than half the effort to complete the activity 2 The helper provides more than half the effort to complete the activity 1 Dependent. The helper does all the effort to complete an activity 7 Patient refused to complete or attempt activity 9 The patient did not perform the activity before the current illness or injury 88 Not attempted due to Medical conditions or safety concerns sit to stand transfers SBA Weight Bearing Right Lower Extremity: Right Full Weight Bearing Left Lower Extremity: Left Full Weight Bearing Gait Training Gait Assistive Device: FWW Pt amb with FWW and CGA 2 x 250ft, steady speed Exercises Seated Therapy Exercises: Ankle pumps, Long arc quads, Hip flexion, Hip abd/add , Glut set Seated Reps: 40 Standing: Heel/toe raises, 3 way Ex=Flex, Abd, Ext, Marching Standing Reps: 20 NuStep Minutes: 15 NuStep Workload: 1 Assessment Current Status: Good Progress Pt mathew above very well with rest breaks as needed. No complaints voiced. Pt back to chair with call light, ambu alarm activated and all needs met. PT Vice President Network Goals Detention Goals PT Detention Goals Time Frame: Oct 29, 2018 Transfers (B,C,W/C) (FIM): 6 Sit to Lying (QC): 6 Lying-Sitting on Side/Bed(QC): 6 Sit to Stand (QC): 6 Rollin Roll Left to Right (QC): 6 Chair/Jiy-wg-Vfvvx Xfer(QC): 6 Car Transfer (QC): 6 Does the Patient Walk: Yes Gait (FIM): 6 Gait distance (FIM): 3=150 ft Distance: 175' Walk 10 feet (QC): 6 Walk 10ft-Uneven Surface(QC): 6 Walk 50ft with 2 Turns (QC): 6 Walk 150 ft (QC): 6 Gait Level of Assist: 6 Gait Assistive Device: FWW Does the Pt use WC or Scooter?: No Stairs (FIM): 1 # of Steps: 1 1 Step (curb) (QC): 5 4 Steps (QC): 9 12 Steps (QC): 9 Stairs Level Of Assist: 5 Picking up an Object (QC): 5 PT Plan Treatment/Plan Treatment Plan: Continue Plan of Care Treatment Plan: Bed Mobility, Education, Functional Activity Brendan, Functional Strength, Group Therapy, Gait, Safety, Therapeutic Exercise, Transfers Treatment Duration: Oct 29, 2018 Frequency: At least 5 of 7 days/Wk (IRF) Estimated Hrs Per Day: 1.5 hours per day Patient and/or Family Agrees t: Yes Time/GCodes Time In: 900 Time Out: 1000 Total Billed Treatment Time: 60 Total Billed Treatment 1, ther ex 45 min, Gait 15 min SRI HOANG CPTA Oct 15, 2018 10:51
[2018-10-15] MEDS: PREGABALIN 25 MG (LYRICA) NON-STOCK STRENGTH PO SCH ×2 (11:15→20:49)
[2018-10-15] MEDS: ENOXAPARIN 40 MG/0.4 ML (LOVENOX) SYR SC SCH ×2 (12:23→20:41)
--- NOTE | 2018-10-15 12:46 | Therapy Group Daily Note ---
Therapy Daily Group Note Patient Education Topic Home Safety, Fall Prevention, Exercises, Other List Below Exercises LE Seated Exercise, ROM, Stretching, UE Exercise Other/Notes Group activity to work on social interaction and facilitate cognitive activity. Performed seated exercises for UE and LE strength and ROM. Education on fall prevention with emphasis on home safety. Educated patients on the physiology of pain and mechanisms to cope. Also discussed the importance of continuing to work on graded exercise despite pain in order to prevent loss of strength and function. Worked on transfers and mobility too/from dining tables. Start Time: 11:00 Stop Time: 12:00 Total Billed Treatment Time: 60 Total Billed Treatment VISIT, GROUP 60 MIN SHANTA ROSE PT Oct 15, 2018 12:46
--- NOTE | 2018-10-15 12:46 | Progress Note-Hospitalist ---
Subjective HPI/CC On Admission Date Seen by Provider: Oct 15, 2018 Time Seen by Provider: 12:00 Subjective/Events-last exam Patient doing well Participating in therapy Pain is well-controlled Bowels are moving Using incentive spirometer Review of Systems Musculoskeletal: neck pain Objective Exam Vital Signs Vital Signs Date Time Temp Pulse Resp B/P (MAP) Pulse Ox O2 Delivery O2 Flow Rate FiO2 10/15/18 05:07 98.2 92 16 172/89 (116) 93 Room Air Capillary Refill : General Appearance: No Apparent Distress, WD/WN, Chronically ill Neck: Other (Limited range of motion due to cervical spine brace) Respiratory: Chest Non Tender, Lungs Clear, Normal Breath Sounds, No Accessory Muscle Use, No Respiratory Distress Cardiovascular: Regular Rate, Rhythm, No Edema, No Gallop, No JVD, No Murmur, Normal Peripheral Pulses Neurologic/Psychiatric: Alert, Oriented x3, No Motor/Sensory Deficits, Depressed Affect Results/Procedures Lab Patient resulted labs reviewed. Assessment/Plan Assessment and Plan Assess & Plan/Chief Complaint Assessment: Debility Cervical spine surgery Diabetes mellitus insulin-dependent Hypothyroidism Hyperlipidemia Plan: Maintain lower dose of insulin due to hypoglycemia since she is not eating as much as at home Pain control Bowel regimen Therapies Diagnosis/Problems Diagnosis/Problems (1) Cervical stenosis of spinal canal Status: Resolved Resolution Date/Time: 10/10/18 @ 13:33 (2) Insulin dependent diabetes mellitus Status: Chronic (3) CAD (coronary artery disease) Status: Chronic Qualifiers: Coronary Disease-Associated Artery/Lesion type: [place] artery [place] vs. transplanted heart: [place] heart Associated angina: without angina Qualified Codes: I25.10 - Atherosclerotic heart disease of [place] coronary artery without angina pectoris (4) Hypothyroidism Status: Chronic Qualifiers: Hypothyroidism type: acquired Qualified Codes: E03.9 - Hypothyroidism, unspecified (5) Essential (primary) hypertension Status: Chronic Clinical Quality Measures DVT/VTE Risk/Contraindication: Risk Factor Score Per Nursin RFS Level Per Nursing on Admit: 4+=Very High Other: PATIENT IS ON LOVENOX AND SCD'S ROSARIO CABALLERO DO Oct 15, 2018 12:46
[2018-10-15] MEDS: VENlafaxine 37.5 MG (EFFEXOR) TAB PO SCH (15:58)
[2018-10-15 16:48] VITALS: BP 177/84
[2018-10-15] MEDS: traZODone 100 MG (DESYREL) TAB PO SCH (20:41)
[2018-10-15] MEDS: DIVALPROEX 250 MG DELAYED RELEASE (DEPAKOTE) TAB PO SCH (20:41)
[2018-10-15] MEDS: QUEtiapine 25 MG (SEROquel) TAB IMMEDIATE RELEASE PO SCH (20:41)
[2018-10-15] MEDS: ATORVASTATIN 80 MG (LIPITOR) TABLET PO SCH (20:41)
[2018-10-15] MEDS: inSUlin DETERMIR 1 UNIT/0.01 ML (LEVEMIR) CHARGE PER UNIT SQ SCH (20:42)
[2018-10-16 05:09] VITALS: BP 159/84
[2018-10-16] MEDS: inSUlin ASPART (NovoLOG) 1 UNIT/0.01 ML (CHARGE PER UNIT) SC SCH ×4 (05:54→21:52)
[2018-10-16] MEDS: MULTIVIT W/MINERALS TAB (THERAGRAN M) PO SCH (06:44)
[2018-10-16] MEDS: PANTOPRAZOLE 40 MG (PROTONIX) TAB PO SCH ×2 (06:44→21:47)
[2018-10-16] MEDS: LEVOTHYROXINE 75 MCG (LEVOTHROID) TABLET PO SCH (06:44)
[2018-10-16] MEDS: VENlafaxine 75 MG (EFFEXOR) TAB PO SCH (08:39)
[2018-10-16] MEDS: lisINopril 5 MG (PRINIVIL) TABLET PO SCH (08:39)
[2018-10-16] MEDS: ENOXAPARIN 40 MG/0.4 ML (LOVENOX) SYR SC SCH ×2 (08:39→21:53)
[2018-10-16] MEDS: VENlafaxine 37.5 MG (EFFEXOR) TAB PO SCH (08:39)
[2018-10-16] MEDS: DULoxetine 30 MG (CYMBALTA) CAP PO SCH (08:39)
[2018-10-16] MEDS: PREGABALIN 25 MG (LYRICA) NON-STOCK STRENGTH PO SCH ×2 (08:46→21:46)
[2018-10-16] MEDS: oxyCODONE/APAP 5/325MG (PERCOCET 5) TABLET PO PRN (11:29)
[2018-10-16 16:17] VITALS: BP 154/81
[2018-10-16] MEDS: CYCLOBENZAPRINE 10 MG (FLEXERIL) TAB PO PRN (18:45)
[2018-10-16] MEDS: traZODone 100 MG (DESYREL) TAB PO SCH (21:46)
[2018-10-16] MEDS: DIVALPROEX 250 MG DELAYED RELEASE (DEPAKOTE) TAB PO SCH (21:47)
[2018-10-16] MEDS: QUEtiapine 25 MG (SEROquel) TAB IMMEDIATE RELEASE PO SCH (21:47)
[2018-10-16] MEDS: ATORVASTATIN 80 MG (LIPITOR) TABLET PO SCH (21:49)
[2018-10-16] MEDS: inSUlin DETERMIR 1 UNIT/0.01 ML (LEVEMIR) CHARGE PER UNIT SQ SCH (21:52)
[2018-10-17 05:28] VITALS: BP 156/94
[2018-10-17] MEDS: inSUlin ASPART (NovoLOG) 1 UNIT/0.01 ML (CHARGE PER UNIT) SC SCH ×4 (06:00→20:51)
[2018-10-17] MEDS: MULTIVIT W/MINERALS TAB (THERAGRAN M) PO SCH (06:34)
[2018-10-17] MEDS: PANTOPRAZOLE 40 MG (PROTONIX) TAB PO SCH ×2 (06:34→20:51)
[2018-10-17] MEDS: LEVOTHYROXINE 75 MCG (LEVOTHROID) TABLET PO SCH (06:34)
[2018-10-17] MEDS: VENlafaxine 75 MG (EFFEXOR) TAB PO SCH (08:25)
[2018-10-17] MEDS: PREGABALIN 25 MG (LYRICA) NON-STOCK STRENGTH PO SCH ×2 (08:25→20:51)
[2018-10-17] MEDS: VENlafaxine 37.5 MG (EFFEXOR) TAB PO SCH (08:25)
[2018-10-17] MEDS: lisINopril 5 MG (PRINIVIL) TABLET PO SCH (08:25)
[2018-10-17] MEDS: DULoxetine 30 MG (CYMBALTA) CAP PO SCH (08:25)
[2018-10-17] MEDS: ENOXAPARIN 40 MG/0.4 ML (LOVENOX) SYR SC SCH ×2 (08:26→20:52)
[2018-10-17] MEDS: oxyCODONE/APAP 5/325MG (PERCOCET 5) TABLET PO PRN ×3 (08:28→20:59)
--- NOTE | 2018-10-17 08:31 | Occupational Ther Daily Note ---
OT Current Status-Daily Note Subjective No pain reported. Appearance Pt. up in chair. Agrees to shower. Mental Status/Objective Patient Orientation: Person, Place Therapy Code Descriptions/Definitions Functional [place] Measure: 0=Not Assessed/NA 4=Minimal Assistance 1=Total Assistance 5=Supervision or Setup 2=Maximal Assistance 6=Modified [place] 3=Moderate Assistance 7=Complete [place] Attachments: IV ADL-Treatment Therapy Code Descriptions/Definitions Functional [place] Measure: 0=Not Assessed/NA 4=Minimal Assistance 1=Total Assistance 5=Supervision or Setup 2=Maximal Assistance 6=Modified [place] 3=Moderate Assistance 7=Complete [place] Therapy Quality Codes: 6 Independent with activity with or without an assistive device 5 Patient requires set up or clean up by helper. Patient completes activity by themselves 4 Supervision or touching assist (CGA). Me[place] provide cues , steadying assist 3 The helper provides less than half the effort to complete the activity 2 The helper provides more than half the effort to complete the activity 1 Dependent. The helper does all the effort to complete an activity 7 Patient refused to complete or attempt activity 9 The patient did not perform the activity before the current illness or injury 88 Not attempted due to Medical conditions or safety concerns Eating (FIM): 7 Eating (QC): 6 Grooming (FIM): 5 Oral Hygiene (QC): 4 Bathing (FIM): 5 Shower/Bathe Self (QC): 4 Upper Body (FIM): 4 (Min assist to pull down bra.) Upper Body Dressing (QC): 4 Lower Body Dressing (FIM): 5 Lower Body Dressing (QC): 5 On/Off Footwear (QC): 5 Transfers (B, C, W/C) (FIM): 5 Shower Transfer(FIM): 5 Other Treatment Pt. requires SBA/set up for most tasks. Does require minimal assistance to don sportsbra. Education OT Patient Education: Correct positioning, Modified ADL techniques, Progress toward Goal/Update tx plan, Purpose of tx/functional activities, Reviewed precautions, Rehab process, Transfer techniques Teaching Recipient: Patient Teaching Methods: Demonstration, Discussion Response to Teaching: Verbalize Understanding, Return Demonstration OT Short Term Goals Short Term Goals Time Frame: Oct 20, 2018 Eating(FIM): 5 Toileting(FIM): 5 Toilet/Commode Transfer(FIM): 5 Additional Short Term Goals: 1-Demonstrate ADL Tasks, 2-Verbalize Understanding , 3-ImproveStrength/Brendan 1=Demonstrate adherence to instructed precautions during ADL tasks. 2=Patient will verbalize/demonstrate understanding of assistive devices/ modifications for ADL. 3=Patient will improve strength/tolerance for activity to enable patient to perform ADL's. OT Clothes Drier Assembler Goals Clothes Drier Assembler Goals Time Frame: Oct 29, 2018 Eating (FIM): 7 Eating (QC): 6 Groomin Oral Hygiene (QC): 6 Bathing(FIM): 6 Shower/Bathe Self (QC): 6 Upper Body Dressing(FIM): 6 Upper Body Dressing (QC): 6 Lower Body Dressing(FIM): 6 Lower Body Dressing (QC): 6 On/Off Footwear (QC): 6 Toileting(FIM): 6 Toileting Hygiene (QC): 6 Toilet/Commode Transfer(FIM): 6 Toilet/Commode Transfer (QC): 6 Shower Transfer(FIM): 6 Additional Goals: 1-Demonstrate ADL Tasks, 2-Verbalize Understanding, 3- ImproveStrength/Brendan 1=Demonstrate adherence to instructed precautions during ADL tasks. 2=Patient will verbalize/demonstrate understanding of assistive devices/ modifications for ADL. 3=Patient will improve strength/tolerance for activity to enable patient to perform ADL's. OT Education/Plan Problem List/Assessment Assessment: Decreased Activ Tolerance, Impaired I ADL's, Impaired Self-Care Skills Pt would benefit from skilled OT to increase her independence in basic self care to allow her to safely return home Discharge Recommendations Plan/Recommendations: Continue POC Therapy D/C Recommendations: Home w/ Family Support, Occupational Therapy Home Care Treatment Plan/Plan of Care Treatment,Training & Education: Yes Patient would benefit from OT for education, treatment and training to promote independence in ADL's, mobility, safety and/or upper extremity function for ADL' s. Plan of Care: ADL Retraining, Functional Mobility, Group Exercise/Act as Ind ( education, exercise, memory, socialization, functional activities, activity tolerance), UE Funct Exercise/Act, UE Neuromus Re-Ed/Coord, OTHER (energy conservation education) Treatment Duration: Oct 29, 2018 Frequency: At least 5 of 7 days/Wk (IRF) Estimated Hrs Per Day: 1.5 hours per day (1.25 to 1.5) Agreement: Yes Rehab Potential: Fair Time/GCodes Start Time: 07:45 Stop Time: 08:25 Total Time Billed (hr/min): 40 Billed Treatment Time 1, ADL x 3 EL SINGH OT Oct 17, 2018 08:31
--- NOTE | 2018-10-17 10:54 | Physical Therapy Daily Note ---
PT Daily Note-Current Subjective Patient in recliner pre tx, agrees to PT, has 7/10 pain, nurse aware of pain, has cervical collar on. Appearance Patient in recliner post tx with nurse call, phone, tray, all needs met. Chair alarm on. Mental Status Patient Orientation: Person, Place, Situation cervical collar Transfers Therapy Code Descriptions/Definitions Functional [place] Measure: 0=Not Assessed/NA 4=Minimal Assistance 1=Total Assistance 5=Supervision or Setup 2=Maximal Assistance 6=Modified [place] 3=Moderate Assistance 7=Complete [place] Therapy Quality Codes: 6 Independent with activity with or without an assistive device 5 Patient requires set up or clean up by helper. Patient completes activity by themselves 4 Supervision or touching assist (CGA). [place]ulah provide cues , steadying assist 3 The helper provides less than half the effort to complete the activity 2 The helper provides more than half the effort to complete the activity 1 Dependent. The helper does all the effort to complete an activity 7 Patient refused to complete or attempt activity 9 The patient did not perform the activity before the current illness or injury 88 Not attempted due to Medical conditions or safety concerns Transfers (B, C, W/C) (FIM): 5 Sit to/from Stand: 5 Bed to/from Chair: 5 Weight Bearing Right Lower Extremity: Right Full Weight Bearing Left Lower Extremity: Left Full Weight Bearing Gait Training Gait (FIM): 5 Distance: 400'x2 Gait Level of Assist: 5 Gait Persons Needed: 1 Gait Assistive Device: FWW Steady ambulation, may try a single point cane next time. Exercises Standing: Hip Abduction, Hamstring curls, Heel/toe raises, Mini squats Standing Reps: 15 LAQ alternating for 5 min with 2# ankle weights NuStep Minutes: 15 NuStep Workload: 4 (no arms used) Treatments transfers, ambulation, functional strengthening Assessment Current Status: Fair Progress improving endurance PT Hansard Reporter Goals Senior Care Goals PT Senior Care Goals Time Frame: Oct 29, 2018 Transfers (B,C,W/C) (FIM): 6 Sit to Lying (QC): 6 Lying-Sitting on Side/Bed(QC): 6 Sit to Stand (QC): 6 Rollin Roll Left to Right (QC): 6 Chair/Get-ev-Ylfii Xfer(QC): 6 Car Transfer (QC): 6 Does the Patient Walk: Yes Gait (FIM): 6 Gait distance (FIM): 3=150 ft Distance: 175' Walk 10 feet (QC): 6 Walk 10ft-Uneven Surface(QC): 6 Walk 50ft with 2 Turns (QC): 6 Walk 150 ft (QC): 6 Gait Level of Assist: 6 Gait Assistive Device: FWW Does the Pt use WC or Scooter?: No Stairs (FIM): 1 # of Steps: 1 1 Step (curb) (QC): 5 4 Steps (QC): 9 12 Steps (QC): 9 Stairs Level Of Assist: 5 Picking up an Object (QC): 5 PT Plan Problem List Problem List: Activity Tolerance, Functional Strength, Safety, Balance, Gait, Transfer, Bed Mobility, ROM Treatment/Plan Treatment Plan: Continue Plan of Care Treatment Plan: Bed Mobility, Education, Functional Activity Brendan, Functional Strength, Group Therapy, Gait, Safety, Therapeutic Exercise, Transfers Treatment Duration: Oct 29, 2018 Frequency: At least 5 of 7 days/Wk (IRF) Estimated Hrs Per Day: 1.5 hours per day Patient and/or Family Agrees t: Yes Safety Risks/Education Patient Education: Gait Training, Transfer Techniques, Correct Positioning, Safety Issues Teaching Recipient: Patient Teaching Methods: Demonstration, Discussion Response to Teaching: Reinforcement Needed Time/GCodes Time In: 1000 Time Out: 1100 Total Billed Treatment Time: 60 Total Billed Treatment 1 visit GT 30' EX 30' YAO PATE PT Oct 17, 2018 10:54
[2018-10-17] MEDS: CHLORASEPTIC LOZENGE MM PRN (10:55)
--- NOTE | 2018-10-17 11:49 | Progress Note-Hospitalist ---
Subjective HPI/CC On Admission Date Seen by Provider: Oct 17, 2018 Time Seen by Provider: 10:00 Subjective/Events-last exam Patient doing well Per dissipating in therapy Slept well last night Pain is controlled Bowels are moving Overall improving by the day Review of Systems General: Fatigue Objective Exam Vital Signs Vital Signs Date Time Temp Pulse Resp B/P (MAP) Pulse Ox O2 Delivery O2 Flow Rate FiO2 10/17/18 09:00 Room Air 10/17/18 05:28 97.2 79 20 156/94 (114) 95 Capillary Refill : General Appearance: No Apparent Distress, WD/WN, Chronically ill Respiratory: Chest Non Tender, Lungs Clear, Normal Breath Sounds, No Accessory Muscle Use, No Respiratory Distress Cardiovascular: Regular Rate, Rhythm, No Edema, No Gallop, No JVD, No Murmur, Normal Peripheral Pulses Back: Decreased Range of Motion (Neck) Neurologic/Psychiatric: Alert, Oriented x3, No Motor/Sensory Deficits, Normal Mood/Affect Results/Procedures Lab Patient resulted labs reviewed. Assessment/Plan Assessment and Plan Assess & Plan/Chief Complaint Assessment: Debility Cervical spine surgery Diabetes mellitus insulin-dependent Hypothyroidism Hyperlipidemia Plan: Maintain lower dose of insulin due to hypoglycemia since she is not eating as much as at home Pain control Bowel regimen Therapies Diagnosis/Problems Diagnosis/Problems (1) Cervical stenosis of spinal canal Status: Resolved Resolution Date/Time: 10/10/18 @ 13:33 (2) Insulin dependent diabetes mellitus Status: Chronic (3) CAD (coronary artery disease) Status: Chronic Qualifiers: Coronary Disease-Associated Artery/Lesion type: [place] artery [place] vs. transplanted heart: [place] heart Associated angina: without angina Qualified Codes: I25.10 - Atherosclerotic heart disease of [place] coronary artery without angina pectoris (4) Hypothyroidism Status: Chronic Qualifiers: Hypothyroidism type: acquired Qualified Codes: E03.9 - Hypothyroidism, unspecified (5) Essential (primary) hypertension Status: Chronic Clinical Quality Measures DVT/VTE Risk/Contraindication: Risk Factor Score Per Nursin RFS Level Per Nursing on Admit: 4+=Very High Other: PATIENT IS ON LOVENOX AND SCD'S ROSARIO CABALLERO DO Oct 17, 2018 11:49
--- NOTE | 2018-10-17 12:59 | Therapy Group Daily Note ---
Therapy Daily Group Note Patient Education Topic Exercises, Other List Below Exercises LE Seated Exercise, Stretching, UE Exercise Other/Notes Memory: [place] related Pt participated in group led exercises and was able to read aloud and demonstrate an exercise. this incorporated socialization, ther ex and cognitive interaction to promote general health and well being. Pt interacted appropirately and seemed to enjoy group. She walked to and from group with assist from staff. Start Time: 11:30 Stop Time: 12:45 Total Billed Treatment Time: 75 Total Billed Treatment 1, GRP MICHELLE GARZA ST Oct 17, 2018 12:59 EFREM ANTONIO PT Oct 20, 2018 14:37
--- NOTE | 2018-10-17 13:31 | Occupational Ther Daily Note ---
OT Current Status-Daily Note Subjective Pt alert, lying in bed. Pt agrees to therapy. No c/o pain. Mental Status/Objective Patient Orientation: Person, Place, Time, Situation Therapy Code Descriptions/Definitions Functional [place] Measure: 0=Not Assessed/NA 4=Minimal Assistance 1=Total Assistance 5=Supervision or Setup 2=Maximal Assistance 6=Modified [place] 3=Moderate Assistance 7=Complete [place] Attachments: Other-See Comments (neck brace) ADL-Treatment Therapy Code Descriptions/Definitions Functional [place] Measure: 0=Not Assessed/NA 4=Minimal Assistance 1=Total Assistance 5=Supervision or Setup 2=Maximal Assistance 6=Modified [place] 3=Moderate Assistance 7=Complete [place] Therapy Quality Codes: 6 Independent with activity with or without an assistive device 5 Patient requires set up or clean up by helper. Patient completes activity by themselves 4 Supervision or touching assist (CGA). [place] provide cues , steadying assist 3 The helper provides less than half the effort to complete the activity 2 The helper provides more than half the effort to complete the activity 1 Dependent. The helper does all the effort to complete an activity 7 Patient refused to complete or attempt activity 9 The patient did not perform the activity before the current illness or injury 88 Not attempted due to Medical conditions or safety concerns Other Treatment Pt completed dowel heber exercises against gravity, 3 sets 10 reps. Pt took a recovery break between each set. After therapy, pt lying in bed with call light /phone in reach. All needs met in room. OT Short Term Goals Short Term Goals Time Frame: Oct 20, 2018 Eating(FIM): 5 Toileting(FIM): 5 Toilet/Commode Transfer(FIM): 5 Additional Short Term Goals: 1-Demonstrate ADL Tasks, 2-Verbalize Understanding , 3-ImproveStrength/Brendan 1=Demonstrate adherence to instructed precautions during ADL tasks. 2=Patient will verbalize/demonstrate understanding of assistive devices/ modifications for ADL. 3=Patient will improve strength/tolerance for activity to enable patient to perform ADL's. OT Intermediate Goals Child Abuse Worker Goals Time Frame: Oct 29, 2018 Eating (FIM): 7 Eating (QC): 6 Groomin Oral Hygiene (QC): 6 Bathing(FIM): 6 Shower/Bathe Self (QC): 6 Upper Body Dressing(FIM): 6 Upper Body Dressing (QC): 6 Lower Body Dressing(FIM): 6 Lower Body Dressing (QC): 6 On/Off Footwear (QC): 6 Toileting(FIM): 6 Toileting Hygiene (QC): 6 Toilet/Commode Transfer(FIM): 6 Toilet/Commode Transfer (QC): 6 Shower Transfer(FIM): 6 Additional Goals: 1-Demonstrate ADL Tasks, 2-Verbalize Understanding, 3- ImproveStrength/Brendan 1=Demonstrate adherence to instructed precautions during ADL tasks. 2=Patient will verbalize/demonstrate understanding of assistive devices/ modifications for ADL. 3=Patient will improve strength/tolerance for activity to enable patient to perform ADL's. OT Education/Plan Problem List/Assessment Pt would benefit from skilled OT to increase her independence in basic self care to allow her to safely return home Discharge Recommendations Plan/Recommendations: Continue POC Treatment Plan/Plan of Care Patient would benefit from OT for education, treatment and training to promote independence in ADL's, mobility, safety and/or upper extremity function for ADL' s. Plan of Care: ADL Retraining, Functional Mobility, Group Exercise/Act as Ind ( education, exercise, memory, socialization, functional activities, activity tolerance), UE Funct Exercise/Act, UE Neuromus Re-Ed/Coord, OTHER (energy conservation education) Treatment Duration: Oct 29, 2018 Frequency: At least 5 of 7 days/Wk (IRF) Estimated Hrs Per Day: 1.5 hours per day (1.25 to 1.5) Agreement: Yes Rehab Potential: Fair Time/GCodes Start Time: 13:20 Stop Time: 13:30 Total Time Billed (hr/min): 10 Billed Treatment Time 1 visit-EX 1 (10 min) EFREM CHOU Oct 17, 2018 13:31
[2018-10-17 16:33] VITALS: BP 145/77
--- NOTE | 2018-10-17 19:34 | Individualized Plan of Care ---
Individualized Plan of Care Rehab Nursing IPOC Order Admission Date Oct 13, 2018 at 10:10 Current Orders Orders Pt Evaluate/Treat Request (10/13/18 09:22) Request Ot Evaluate & Treat (10/13/18 09:22) Request For Cognitive Services (10/13/18 09:22) Admission Order(Inpt,Obs,Sdc) (10/13/18 11:42) Vital Signs: Routine (Order) ,16,00 (10/13/18 11:42) Router Tender-Inpt Rehab Con (10/13/18 11:42) Rehab Nursing Orders-Ipoc (10/13/18 11:42) Intake & Output , (10/13/18 11:42) Precautions (Aru) (10/13/18 11:42) Weekly Weight (Lbs) WEEK (10/13/18 11:42) Code/Resuscitation (10/13/18 11:42) Initiate Admission Nursing Pro .admission (10/13/18 11:42) Accucheck Achs ACHS (10/13/18 11:49) Cervical Collar: Apply (10/13/18 11:49) Drain: Instructions (Order) (10/13/18 11:49) Incentive Spirometry (Nursing) Q2H (10/13/18 11:49) Sequential Compression Device (10/13/18 11:49) Weight Bearing Status (10/13/18 11:49) (Nf) Exenatide Microspheres (Bydureon Bc (10/13/18 12:00) Alprazolam Tablet (Xanax Tablet) (10/13/18 12:00) Atorvastatin Tablet (Lipitor Tablet) (10/13/18 21:00) Duloxetine Capsule (Cymbalta Capsule) (10/14/18 09:00) Divalproex Delay Release Tab (Depakote T (10/13/18 21:00) Bisacodyl Suppository (Dulcolax Supposit (10/13/18 12:00) Bisacodyl Tablet (Dulcolax Tablet) (10/13/18 12:00) Cyclobenzaprine Tablet (Flexeril Tablet) (10/13/18 12:00) Levothyroxine Tablet (Synthroid Tablet) (10/14/18 06:30) Meclizine Tablet (Antivert Tablet) (10/13/18 12:00) Therapeutic Multivitamin Tab (Vitamins, (10/14/18 07:00) Pantoprazole Tablet (Protonix Tablet) (10/13/18 21:00) Oxycodone/Apap 5/325mg Tablet (Percocet (10/13/18 12:00) Pregabalin Cap (Non-Stock) (Lyrica Capsu (10/13/18 21:00) Quetiapine Immediate Release (Seroquel I (10/13/18 21:00) Acetaminophen Tablet/Caplet (Tylenol T (10/13/18 12:00) Venlafaxine Immediate Release (Effexor T (10/14/18 08:00) Venlafaxine Immediate Release (Effexor T (10/14/18 08:00) Lisinopril Tablet (Zestril Tablet) (10/14/18 09:00) Trazodone Tablet (Desyrel Tablet) (10/13/18 21:00) Incentive Spirometry Initial (10/13/18 11:49) Incentive Spirometry (Nursing) Q2H (10/13/18 11:49) Insulin Aspart (Novolog) (Novolog (Charg (10/13/18 16:00) Insulin Determir (Per Unit) (Levemir (Pe (10/13/18 21:00) Consult Physician (10/13/18 12:01) General/Regular (10/13/18 Lunch) Patient Visit (10/13/18 ) Speech Sound Lang Comp (10/13/18 ) Ambulate ,, (10/13/18 14:17) Sequential Compression Device (10/13/18 14:17) Dvt/Vte Risk - Notifiy Physici 08 (10/13/18 14:17) Cervical Collar: Apply (10/13/18 14:36) Insulin Determir (Per Unit) (Levemir (Pe (10/13/18 21:00) Accucheck Achs ACHS (10/13/18 16:37) Insulin Aspart (Novolog) (Novolog (Charg (10/13/18 21:00) Ua Culture If Indicated (10/14/18 06:00) Enoxaparin Injection (Lovenox Injection) (10/13/18 17:00) Dressing Order & Int (Surg/Med UD (10/13/18 17:48) Phenol/Na Phenolate Lozenge (Chlorasepti (10/13/18 18:00) Phenol Throat [place] (Chloraseptic [place]) (10/13/18 18:00) Vte Contraindication (10/14/18 08:54) Drain: Discontinue (Order) (10/14/18 15:03) Nursing Communication (Order) (10/14/18 15:06) Patient Visit (10/14/18 ) Functional Activities, Ea 15 (10/14/18 ) Exercise Therap, Ea 15 Min (10/14/18 ) Patient Visit (10/14/18 ) Treat. Speech/Lang/Voice (10/14/18 ) Consult Physician (10/14/18 16:19) Enoxaparin Injection (Lovenox Injection) (10/15/18 09:34) Self Care/Home Mgmt/Adl 15 Min (10/15/18 ) Patient Visit (10/15/18 ) Exercise Therap, Ea 15 Min (10/15/18 ) Gait Training, Ea 15 Min (10/15/18 ) Patient Visit (10/15/18 ) Therapeutic, Group (10/15/18 ) Patient Visit (10/17/18 ) Sp Therapeutic Group (10/17/18 ) Patient Visit (10/17/18 ) Gait Training, Ea 15 Min (10/17/18 ) Exercise Therap, Ea 15 Min (10/17/18 ) Rehab Nursing Orders: Ongoing Assess. of Cognitive Status, Ongoing Assess. of Function Status, Disease Management & Educaiton, DVT Prophylaxis, Fall Prevention, Fluid/Electrolyte/Nutrition Mgmt, Infection Prevention, Medication Management & Education, Management of Risks & Complications, Management of Skin Intergrity, Nutrition Management, Pain Management, Patient/Family Support, Safety Management PT IPOC Problem List: Activity Tolerance, Functional Strength, Safety, Balance, Gait, Transfer, Bed Mobility, ROM Treatment Plan: Continue Plan of Care Bed Mobility, Education, Functional Activity Brendan, Functional Strength, Group Therapy, Gait, Safety, Therapeutic Exercise, Transfers Treatment Duration: Oct 29, 2018 Frequency: At least 5 of 7 days/Wk (IRF) Estimated Hrs Per Day: 1.5 hours per day OT IPOC Problems: Decreased Activ Tolerance, Impaired I ADL's, Impaired Self-Care Skills OT Treatment, Training and Edu: Yes OT Problems Pt would benefit from skilled OT to increase her independence in basic self care to allow her to safely return home Plan of Care: ADL Retraining, Functional Mobility, Group Exercise/Act as Ind ( education, exercise, memory, socialization, functional activities, activity tolerance), UE Funct Exercise/Act, UE Neuromus Re-Ed/Coord, OTHER (energy conservation education) Treatment Duration: Oct 29, 2018 Frequency: At least 5 of 7 days/Wk (IRF) Estimated Hrs Per Day: 1.5 hours per day (1.25 to 1.5) ST IPOC Speech Therapy Treatment Plan: Continue Plan of Care Treatment Duration: Oct 21, 2018 Frequency: 5 times per week Estimated Hrs Per Day: .5 hour per day Router Tender/Case Mgmt Router Tender/Case Managemen: Discharge Planning, Patient/Family Counseling Dietitian/It Risk And Assurance Manager Dietitian/It Risk And Assurance Manager to monitor nutritional status and make changes and/or recommendations as needed and work with speech pathology on dietary upgrades as the occur. Physician IPOC Medical Issues being managed closely and that require the 24 hour availability of a physician: DM HTN CAD Postop confusion C code 04.130 Etiologic DX M43.12 Medical Issues: DVT Prophylaxis, Falls Precautions, Infection Protection, Pain Management, Wound Care, Other (List) (as per above) Brief Synthesis of Preadmission Screen, Post-Admission Evaluation, and Therapy Evaluations: 63 yo female s/p C spine surgery for Spondylolisthesis C spine referred to IRU for ongoing care and therapies Had been Modified Independent prior to this with a cane. Has some Postop confusion and ST addressing PMH DM and HTN as well as CAD Medical Prognosis: Good Anticipated Length of Stay: 10-29-18 Modified Independent for adls and mobility skills Anticipated d/c Destination: Home with [facility] AMBROSIO LACEY MD Oct 17, 2018 19:34
--- NOTE | 2018-10-17 19:40 | PM & R (SOAP) Progress Note ---
Subjective This was a face to face visit with the patient. Date Seen by Provider: Oct 17, 2018 Time Seen by Provider: 19:20 Subjective/Events-last exam Patient was seen in her room this evening Patient SBA for transfers Accucheks and Therapy notes reviewed.U/A negative Date Identified: Oct 17, 2018 Time Identified: 19:30 Medication Intervention: Cuurent meds reviewed Review of Systems Musculoskeletal: neck pain Objective Physician Exam Last Set of Vital Signs Vital Signs Date Time Temp Pulse Resp B/P (MAP) Pulse Ox O2 Delivery O2 Flow Rate FiO2 10/17/18 16:33 97.0 77 16 145/77 (99) 92 Room Air Capillary Refill : I&O Intake and Output 10/17/18 00:00 Intake Total 1100 ml Balance 1100 ml Intake Oral 1100 ml # Voids 4 General: Alert, Oriented X3, Cooperative, No Acute Distress HEENT: Atraumatic, PERRLA, EOMI, Mucous Memb Moist/[place], Other (anterior cervical spine approach covered with dressing) Lungs: Clear to Auscultation Heart: Regular Rate Abdomen: Normal Bowel Sounds, Soft, No Tenderness Extremities: No Edema Skin: Other (incision covered with dressing) Neuro: Sensation Intact, Other (Decreased sensation to light touch in legs Strength 4-/5) Psych/Mental Status: Mental Status NL Results Lab Data Laboratory Tests 10/15/18 11:06: Glucometer 158H 10/15/18 16:47: Glucometer 133H 10/15/18 20:25: Glucometer 213H 10/16/18 05:49: Glucometer 121H 10/16/18 16:17: Glucometer 119H 10/16/18 20:45: Glucometer 201H 10/17/18 10:48: Glucometer 165H 10/17/18 16:32: Glucometer 143H Assessment/Plan Assessment and Plan S/P C spine surgery for spondylolisthesis DM better controlled HTN controlled CAD s/p CABG DVT Prophylaxis Hypothyroidism on replacement Plan Continue PT/OT/ST Team Conference 10-19-18 Goal return home with HHC at [facility] Co-Morbidities that are continuing to impact the rehab process: (include details ) AMBROSIO LACEY MD Oct 17, 2018 19:40
[2018-10-17] MEDS: DIVALPROEX 250 MG DELAYED RELEASE (DEPAKOTE) TAB PO SCH (20:51)
[2018-10-17] MEDS: ATORVASTATIN 80 MG (LIPITOR) TABLET PO SCH (20:51)
[2018-10-17] MEDS: traZODone 100 MG (DESYREL) TAB PO SCH (20:51)
[2018-10-17] MEDS: QUEtiapine 25 MG (SEROquel) TAB IMMEDIATE RELEASE PO SCH (20:51)
[2018-10-17] MEDS: inSUlin DETERMIR 1 UNIT/0.01 ML (LEVEMIR) CHARGE PER UNIT SQ SCH (20:51)
[2018-10-18] MEDS: LEVOTHYROXINE 75 MCG (LEVOTHROID) TABLET PO SCH (05:48)
[2018-10-18] MEDS: PANTOPRAZOLE 40 MG (PROTONIX) TAB PO SCH ×2 (05:49→20:51)
[2018-10-18] MEDS: MULTIVIT W/MINERALS TAB (THERAGRAN M) PO SCH (05:49)
[2018-10-18] MEDS: inSUlin ASPART (NovoLOG) 1 UNIT/0.01 ML (CHARGE PER UNIT) SC SCH ×4 (05:49→20:50)
[2018-10-18] MEDS: lisINopril 5 MG (PRINIVIL) TABLET PO SCH (08:29)
[2018-10-18] MEDS: VENlafaxine 75 MG (EFFEXOR) TAB PO SCH (08:29)
[2018-10-18] MEDS: PREGABALIN 25 MG (LYRICA) NON-STOCK STRENGTH PO SCH ×2 (08:29→20:51)
[2018-10-18] MEDS: VENlafaxine 37.5 MG (EFFEXOR) TAB PO SCH (08:29)
[2018-10-18] MEDS: DULoxetine 30 MG (CYMBALTA) CAP PO SCH (08:29)
[2018-10-18] MEDS: ENOXAPARIN 40 MG/0.4 ML (LOVENOX) SYR SC SCH ×2 (08:30→20:51)
[2018-10-18] MEDS: oxyCODONE/APAP 5/325MG (PERCOCET 5) TABLET PO PRN ×4 (08:30→23:57)
--- NOTE | 2018-10-18 12:34 | Progress Note-Hospitalist ---
Subjective HPI/CC On Admission Date Seen by Provider: Oct 18, 2018 Time Seen by Provider: 11:00 Subjective/Events-last exam Patient doing very well Family will bring dinner in a bit Pain is controlled Checked meds and labs Review of Systems Musculoskeletal: neck pain Objective Exam Vital Signs Vital Signs Date Time Temp Pulse Resp B/P (MAP) Pulse Ox O2 Delivery O2 Flow Rate FiO2 10/18/18 09:00 Room Air 10/17/18 16:33 97.0 77 16 145/77 (99) 92 Capillary Refill : General Appearance: No Apparent Distress, WD/WN, Chronically ill Respiratory: Chest Non Tender, Lungs Clear, Normal Breath Sounds, No Accessory Muscle Use, No Respiratory Distress Cardiovascular: Regular Rate, Rhythm, No Edema, No Gallop, No JVD, No Murmur, Normal Peripheral Pulses Neurologic/Psychiatric: Alert, Oriented x3, No Motor/Sensory Deficits, Normal Mood/Affect Results/Procedures Lab Patient resulted labs reviewed. Assessment/Plan Assessment and Plan Assess & Plan/Chief Complaint Assessment: Debility Cervical spine surgery Diabetes mellitus insulin-dependent Hypothyroidism Hyperlipidemia Plan: Maintain lower dose of insulin due to hypoglycemia since she is not eating as much as at home Pain control Bowel regimen Therapies Diagnosis/Problems Diagnosis/Problems (1) Cervical stenosis of spinal canal Status: Resolved Resolution Date/Time: 10/10/18 @ 13:33 (2) Insulin dependent diabetes mellitus Status: Chronic (3) CAD (coronary artery disease) Status: Chronic Qualifiers: Coronary Disease-Associated Artery/Lesion type: [place] artery [place] vs. transplanted heart: [place] heart Associated angina: without angina Qualified Codes: I25.10 - Atherosclerotic heart disease of [place] coronary artery without angina pectoris (4) Hypothyroidism Status: Chronic Qualifiers: Hypothyroidism type: acquired Qualified Codes: E03.9 - Hypothyroidism, unspecified (5) Essential (primary) hypertension Status: Chronic Clinical Quality Measures DVT/VTE Risk/Contraindication: Risk Factor Score Per Nursin RFS Level Per Nursing on Admit: 4+=Very High Other: PATIENT IS ON LOVENOX AND SCD'S ROSARIO CABALLERO DO Oct 18, 2018 12:33
[2018-10-18] MEDS: ATORVASTATIN 80 MG (LIPITOR) TABLET PO SCH (20:51)
[2018-10-18] MEDS: DIVALPROEX 250 MG DELAYED RELEASE (DEPAKOTE) TAB PO SCH (20:51)
[2018-10-18] MEDS: QUEtiapine 25 MG (SEROquel) TAB IMMEDIATE RELEASE PO SCH (20:51)
[2018-10-18] MEDS: inSUlin DETERMIR 1 UNIT/0.01 ML (LEVEMIR) CHARGE PER UNIT SQ SCH (20:51)
[2018-10-18] MEDS: traZODone 100 MG (DESYREL) TAB PO SCH (20:51)
[2018-10-18] MEDS: CYCLOBENZAPRINE 10 MG (FLEXERIL) TAB PO PRN (20:58)
[2018-10-18] MEDS: ACETAMINOPHEN 325 MG TABLET PO PRN (20:58)
[2018-10-19 06:00] VITALS: BP 150/80
[2018-10-19] MEDS: inSUlin ASPART (NovoLOG) 1 UNIT/0.01 ML (CHARGE PER UNIT) SC SCH ×4 (06:40→21:39)
[2018-10-19] MEDS: PANTOPRAZOLE 40 MG (PROTONIX) TAB PO SCH ×2 (06:40→21:28)
[2018-10-19] MEDS: LEVOTHYROXINE 75 MCG (LEVOTHROID) TABLET PO SCH (06:40)
[2018-10-19] MEDS: MULTIVIT W/MINERALS TAB (THERAGRAN M) PO SCH (06:40)
[2018-10-19] MEDS: VENlafaxine 37.5 MG (EFFEXOR) TAB PO SCH (08:55)
[2018-10-19] MEDS: lisINopril 5 MG (PRINIVIL) TABLET PO SCH (08:55)
[2018-10-19] MEDS: DULoxetine 30 MG (CYMBALTA) CAP PO SCH (08:55)
[2018-10-19] MEDS: PREGABALIN 25 MG (LYRICA) NON-STOCK STRENGTH PO SCH ×2 (08:55→21:29)
[2018-10-19] MEDS: VENlafaxine 75 MG (EFFEXOR) TAB PO SCH (08:55)
[2018-10-19] MEDS: ENOXAPARIN 40 MG/0.4 ML (LOVENOX) SYR SC SCH ×2 (08:56→21:37)
--- NOTE | 2018-10-19 09:45 | Occupational Ther Daily Note ---
OT Current Status-Daily Note Subjective Pt seen in room, up in recliner, agreeable to OT. No pain mentioned. Appearance Alert, cooperative Mental Status/Objective Therapy Code Descriptions/Definitions Functional [place] Measure: 0=Not Assessed/NA 4=Minimal Assistance 1=Total Assistance 5=Supervision or Setup 2=Maximal Assistance 6=Modified [place] 3=Moderate Assistance 7=Complete [place] ADL-Treatment Pt got up from recliner without help. Walked to bathroom with FWW and no LOB. Toileted mod I, BSC over toilet. Shower transfer mod I. Washed and dried all parts, hand held shower, shower bench, grab bar. No LOB when standing. Undressed without help but pt educ to not step out of pants but to sit to take them off. Pt educ use of dressing stick Dressed mod I, transporting clothes on FWW, incl socks and tied shoes. Groomed at sink mod I. Eats indep. Pt returned to recliner, all needs met. Mild safety concerns with lower body dressing. Pt practiced doffing and donning cervical collar. Therapy Code Descriptions/Definitions Functional [place] Measure: 0=Not Assessed/NA 4=Minimal Assistance 1=Total Assistance 5=Supervision or Setup 2=Maximal Assistance 6=Modified [place] 3=Moderate Assistance 7=Complete [place] Therapy Quality Codes: 6 Independent with activity with or without an assistive device 5 Patient requires set up or clean up by helper. Patient completes activity by themselves 4 Supervision or touching assist (CGA). [place] provide cues , steadying assist 3 The helper provides less than half the effort to complete the activity 2 The helper provides more than half the effort to complete the activity 1 Dependent. The helper does all the effort to complete an activity 7 Patient refused to complete or attempt activity 9 The patient did not perform the activity before the current illness or injury 88 Not attempted due to Medical conditions or safety concerns Eating (FIM): 7 (Opens packages, cuts food. Able to feed self and get a drink) Eating (QC): 6 Grooming (FIM): 6 (Indep at sink to brush teeth, comb hair. Washed face and hands in shower) Oral Hygiene (QC): 6 Bathing (FIM): 6 (Washed and dried all parts. Shower bench, grab bars, hand held shower. Turned water on and off and retrieved towels) Shower/Bathe Self (QC): 6 Upper Body (FIM): 6 (Doffed and donned clothing without help. Transported clean ones on FWW) Upper Body Dressing (QC): 6 Lower Body Dressing (FIM): 6 (doffed and donned clothing, including socks and shoes. Pt educ to sit to take pants off, not step out of them, FWW) Lower Body Dressing (QC): 6 On/Off Footwear (QC): 6 Toileting (FIM): 6 (Managed clothing and hygiene, BSC over toilet, grab bar, FWW) Toileting Hygiene (QC): 6 Toilet/Commode Transfer (FIM): 6 (On/off BSC commode over toilet, FWW, grab bar ) Toilet Transfer (QC): 6 Shower Transfer(FIM): 6 (On/off shower bench, grab bar, FWW) Education OT Patient Education: Progress toward Goal/Update tx plan, Purpose of tx/ functional activities, Safety issues Teaching Recipient: Patient Teaching Methods: Discussion Response to Teaching: Verbalize Understanding OT Short Term Goals Short Term Goals Time Frame: Oct 20, 2018 Eating(FIM): 5 Toileting(FIM): 5 Toilet/Commode Transfer(FIM): 5 Additional Short Term Goals: 1-Demonstrate ADL Tasks, 2-Verbalize Understanding , 3-ImproveStrength/Brendan 1=Demonstrate adherence to instructed precautions during ADL tasks. 2=Patient will verbalize/demonstrate understanding of assistive devices/ modifications for ADL. 3=Patient will improve strength/tolerance for activity to enable patient to perform ADL's. OT Career Development Specialist Goals Career Development Specialist Goals Time Frame: Oct 29, 2018 Eating (FIM): 7 Eating (QC): 6 Groomin Oral Hygiene (QC): 6 Bathing(FIM): 6 Shower/Bathe Self (QC): 6 Upper Body Dressing(FIM): 6 Upper Body Dressing (QC): 6 Lower Body Dressing(FIM): 6 Lower Body Dressing (QC): 6 On/Off Footwear (QC): 6 Toileting(FIM): 6 Toileting Hygiene (QC): 6 Toilet/Commode Transfer(FIM): 6 Toilet/Commode Transfer (QC): 6 Shower Transfer(FIM): 6 Additional Goals: 1-Demonstrate ADL Tasks, 2-Verbalize Understanding, 3- ImproveStrength/Brendan 1=Demonstrate adherence to instructed precautions during ADL tasks. 2=Patient will verbalize/demonstrate understanding of assistive devices/ modifications for ADL. 3=Patient will improve strength/tolerance for activity to enable patient to perform ADL's. OT Education/Plan Problem List/Assessment Pt would benefit from skilled OT to increase her independence in basic self care to allow her to safely return home Discharge Recommendations Plan/Recommendations: Continue POC Treatment Plan/Plan of Care Patient would benefit from OT for education, treatment and training to promote independence in ADL's, mobility, safety and/or upper extremity function for ADL' s. Plan of Care: ADL Retraining, Functional Mobility, Group Exercise/Act as Ind ( education, exercise, memory, socialization, functional activities, activity tolerance), UE Funct Exercise/Act, UE Neuromus Re-Ed/Coord, OTHER (energy conservation education) Treatment Duration: Oct 29, 2018 Frequency: At least 5 of 7 days/Wk (IRF) Estimated Hrs Per Day: 1.5 hours per day (1.25 to 1.5) Agreement: Yes Rehab Potential: Fair Time/GCodes Start Time: 08:15 Stop Time: 09:00 Total Time Billed (hr/min): 45 Billed Treatment Time visit, 45 minutes ADL MELANIA HUANG OT Oct 19, 2018 09:45
--- NOTE | 2018-10-19 11:21 | Physical Therapy Daily Note ---
PT Daily Note-Current Subjective Patient in recliner pre tx, agrees to PT, has 3/10 pain. Cervical collar donned. Appearance Patient in recliner post tx with nurse call, phone, tray, all needs met. Cervical collar on. Chair alarm not on, patient not confused, discussed with nurse and she agrees. Mental Status Patient Orientation: Person, Place, Situation, Normal For Age Transfers Therapy Code Descriptions/Definitions Functional [place] Measure: 0=Not Assessed/NA 4=Minimal Assistance 1=Total Assistance 5=Supervision or Setup 2=Maximal Assistance 6=Modified [place] 3=Moderate Assistance 7=Complete [place] Therapy Quality Codes: 6 Independent with activity with or without an assistive device 5 Patient requires set up or clean up by helper. Patient completes activity by themselves 4 Supervision or touching assist (CGA). [place] provide cues , steadying assist 3 The helper provides less than half the effort to complete the activity 2 The helper provides more than half the effort to complete the activity 1 Dependent. The helper does all the effort to complete an activity 7 Patient refused to complete or attempt activity 9 The patient did not perform the activity before the current illness or injury 88 Not attempted due to Medical conditions or safety concerns Transfers (B, C, W/C) (FIM): 6 Scootin Rollin Roll Left to Right (QC): 6 Supine to/from Sit: 6 Sit to/from Stand: 6 Sit to Lying (QC): 6 Sit to Stand (QC): 6 Chair/Rer-wg-Phfib Xfer(QC): 6 Bed to/from Chair: 6 Car Transfer (QC): 6 Patient performs bed mobility and transfers with mod I, car transfer mod I. Weight Bearing Right Lower Extremity: Right Full Weight Bearing Left Lower Extremity: Left Full Weight Bearing Gait Training Gait (FIM): 6 Distance: 400'x2 Walk 10 feet (QC): 6 Walk 50 ft with 2 Turns(QC): 6 Walk 150 ft (QC): 6 Walking 10ft/uneven surface-QC: 6 Gait Level of Assist: 6 Gait Assistive Device: Cane Single Point Patient can ambulate 400' with a single point cane with mod I (including 50' with at least 2 turns of 90 degrees and 10' over an uneven surface). Patient ambulates slowly and carefully. Wheelchair Training Does the Pt Use a Wheelchair?: No Stair Training Stair Training: Handrails/: 2 handrails Stairs (FIM): 5 #of Steps: 12 1 Step (curb) (QC): 4 4 Steps (QC): 4 12 Steps (QC): 4 Stairs: Pattern: Step to Level of Assist: 5 Patient can go up and down 12 steps using 2 handrails with SBA. Cues to slow down. Exercises Standing: Hip Abduction, Hamstring curls, Heel/toe raises, Mini squats Standing Reps: 15 NuStep Minutes: 15 NuStep Workload: 5 Treatments bed mobility and transfers, ambulation, functional strengthening, stair training Assessment Current Status: Fair Progress improved general mobility PT Senior Care Goals Lapidary Apprentice Goals PT Lapidary Apprentice Goals Time Frame: Oct 29, 2018 Transfers (B,C,W/C) (FIM): 6 (met) Sit to Lying (QC): 6 (met) Lying-Sitting on Side/Bed(QC): 6 (met) Sit to Stand (QC): 6 (met) Rollin (met) Roll Left to Right (QC): 6 (met) Chair/Kcd-kq-Jlajn Xfer(QC): 6 (met) Car Transfer (QC): 6 (met) Does the Patient Walk: Yes Gait (FIM): 6 (met) Gait distance (FIM): 3=150 ft Distance: 175' Walk 10 feet (QC): 6 (met) Walk 10ft-Uneven Surface(QC): 6 (met) Walk 50ft with 2 Turns (QC): 6 (met) Walk 150 ft (QC): 6 (met) Gait Level of Assist: 6 (met) Gait Assistive Device: FWW Does the Pt use WC or Scooter?: No Stairs (FIM): 1 (met) # of Steps: 1 1 Step (curb) (QC): 5 (met) 4 Steps (QC): 9 12 Steps (QC): 9 Stairs Level Of Assist: 5 (met) Picking up an Object (QC): 5 PT Plan Problem List Problem List: Activity Tolerance, Functional Strength, Safety, Balance, Gait, Transfer Treatment/Plan Treatment Plan: Continue Plan of Care Treatment Plan: Bed Mobility, Education, Functional Activity Brendan, Functional Strength, Group Therapy, Gait, Safety, Therapeutic Exercise, Transfers Treatment Duration: Oct 29, 2018 Frequency: At least 5 of 7 days/Wk (IRF) Estimated Hrs Per Day: 1.5 hours per day Patient and/or Family Agrees t: Yes Safety Risks/Education Patient Education: Gait Training, Transfer Techniques, Steps, Correct Positioning, Reviewed Don/Doff Brace, Safety Issues Teaching Recipient: Patient Teaching Methods: Demonstration, Discussion Response to Teaching: Reinforcement Needed Time/GCodes Time In: 1000 Time Out: 1100 Total Billed Treatment Time: 60 Total Billed Treatment 1 visit EX 35' GT 25' YAO PATE PT Oct 19, 2018 11:21
--- NOTE | 2018-10-19 12:57 | Speech Therapy Daily Note ---
Speech Daily Progress Note Subjective Date Seen by Provider: Oct 19, 2018 Time Seen by Provider: 00:30 Patient is much more alert. Objective Patient completed simple conversational and memory tasks related to self with 80 % accuracy and minimal verbal cues. Assessment Assessment Current Status: Good Progress Treatment Plan Continue Plan of Care Communication Comprehension: 2 Expression: 2 Social Cognition Social Interaction: 3 Problem Solvin Memory: 2 Speech Short Term Goals Short Term Goals Short Term Goals 1) Patient will complete memory tasks related to her daily needs with 80% or greater. 2) Patient will demonstrate follow through with problem solving skills at 80% or greater. 3) Patient will be able to effectively communicate her wants/needs with 80% or greater. Speech Fpc Goals Statistical Machine Servicer Goals Patient will increase functional memory, problem solving, sequencing and auditory processing for safety awareness and independence. Speech-Plan Patient/Family Goals Patient/Family Goals: Patient plans to move home with friends and druze support. Treatment Plan Speech Therapy Treatment Plan: Continue Plan of Care Patient is much more lucid today. Treatment Duration: Oct 21, 2018 Frequency: 5 times per week Estimated Hrs Per Day: .5 hour per day Rehab Potential: Good Barriers to Learning: Patient has slight memory deficit. Pt/Family Agrees to Plan: Yes Safety Risks/Education Teaching Recipient: Patient Teaching Methods: Discussion Response to Teaching: Verbalize Understanding Education Topics Provided: Safety and procedures within her room. Time Speech Therapy Time In: 11:30 Speech Therapy Time Out: 12:00 Total Billed Time: 30 Billed Treatment Time 1ETELVINA BETHANIA ST Oct 19, 2018 12:57
--- NOTE | 2018-10-19 15:01 | Therapy Group Daily Note ---
Therapy Daily Group Note Patient Education Topic Exercises Exercises LE Seated Exercise, Fine Motor Other/Notes Pt ambulated with cane to OT/PT group in [facility]. Group consisted of introductions (name, number of siblings, favorite [place] gift), socialization , seated UE/LE exercises and education on utilizing everyday items for exercising. Pt introduced self appropriately and actively listened to peers. Completed and tolerated UE/LE seated exercises then was able to contribute an exercise. Verbalized understanding of educational topics and was able to contribute own personal strategies. After therapy, pt lying in bed with call light/phone in reach. All needs met in room. Start Time: 13:00 Stop Time: 14:00 Total Billed Treatment Time: 60 Total Billed Treatment 1-GRP EFREM CHOU Oct 19, 2018 15:01
[2018-10-19] MEDS: CYCLOBENZAPRINE 10 MG (FLEXERIL) TAB PO PRN (15:15)
[2018-10-19] MEDS: oxyCODONE/APAP 5/325MG (PERCOCET 5) TABLET PO PRN ×2 (15:15→21:35)
[2018-10-19 17:21] VITALS: BP 130/66
[2018-10-19] MEDS: DIVALPROEX 250 MG DELAYED RELEASE (DEPAKOTE) TAB PO SCH (21:28)
[2018-10-19] MEDS: traZODone 100 MG (DESYREL) TAB PO SCH (21:28)
[2018-10-19] MEDS: ATORVASTATIN 80 MG (LIPITOR) TABLET PO SCH (21:29)
[2018-10-19] MEDS: QUEtiapine 25 MG (SEROquel) TAB IMMEDIATE RELEASE PO SCH (21:29)
[2018-10-19] MEDS: inSUlin DETERMIR 1 UNIT/0.01 ML (LEVEMIR) CHARGE PER UNIT SQ SCH (21:39)
[2018-10-20 05:43] VITALS: BP 105/67
[2018-10-20] MEDS: inSUlin ASPART (NovoLOG) 1 UNIT/0.01 ML (CHARGE PER UNIT) SC SCH ×2 (06:00→11:26)
[2018-10-20] MEDS: MULTIVIT W/MINERALS TAB (THERAGRAN M) PO SCH (07:11)
[2018-10-20] MEDS: LEVOTHYROXINE 75 MCG (LEVOTHROID) TABLET PO SCH (07:11)
[2018-10-20] MEDS: PANTOPRAZOLE 40 MG (PROTONIX) TAB PO SCH (07:11)
[2018-10-20] MEDS: PREGABALIN 25 MG (LYRICA) NON-STOCK STRENGTH PO SCH (08:21)
[2018-10-20] MEDS: VENlafaxine 75 MG (EFFEXOR) TAB PO SCH (08:21)
[2018-10-20] MEDS: DULoxetine 30 MG (CYMBALTA) CAP PO SCH (08:21)
[2018-10-20] MEDS: lisINopril 5 MG (PRINIVIL) TABLET PO SCH (08:21)
[2018-10-20] MEDS: ENOXAPARIN 40 MG/0.4 ML (LOVENOX) SYR SC SCH (08:21)
[2018-10-20] MEDS: VENlafaxine 37.5 MG (EFFEXOR) TAB PO SCH (08:21)
--- NOTE | 2018-10-20 09:07 | Progress Note-Hospitalist ---
Subjective HPI/CC On Admission Date Seen by Provider: Oct 20, 2018 Time Seen by Provider: 10:00 Subjective/Events-last exam Patient will be discharged today at 11 Wrote narcotic prescription Overall feels ready for home Will resume all regular home medication Review of Systems Musculoskeletal: neck pain Objective Exam Vital Signs Vital Signs Date Time Temp Pulse Resp B/P (MAP) Pulse Ox O2 Delivery O2 Flow Rate FiO2 10/20/18 08:00 Room Air 10/20/18 05:43 97.1 78 18 105/67 (80) 95 Capillary Refill : General Appearance: No Apparent Distress, WD/WN, Chronically ill, Obese Respiratory: Chest Non Tender, Lungs Clear, Normal Breath Sounds, No Accessory Muscle Use, No Respiratory Distress Cardiovascular: Regular Rate, Rhythm, No Edema, No Gallop, No JVD, No Murmur, Normal Peripheral Pulses Back: Decreased Range of Motion Neurologic/Psychiatric: Alert, Oriented x3, No Motor/Sensory Deficits, Normal Mood/Affect Results/Procedures Lab Patient resulted labs reviewed. Assessment/Plan Assessment and Plan Assess & Plan/Chief Complaint Assessment: Debility Cervical spine surgery Diabetes mellitus insulin-dependent Hypothyroidism Hyperlipidemia Plan: DC home Pain control Bowel regimen Therapies Diagnosis/Problems Diagnosis/Problems (1) Cervical stenosis of spinal canal Status: Resolved Resolution Date/Time: 10/10/18 @ 13:33 (2) Insulin dependent diabetes mellitus Status: Chronic (3) CAD (coronary artery disease) Status: Chronic Qualifiers: Coronary Disease-Associated Artery/Lesion type: [place] artery [place] vs. transplanted heart: [place] heart Associated angina: without angina Qualified Codes: I25.10 - Atherosclerotic heart disease of [place] coronary artery without angina pectoris (4) Hypothyroidism Status: Chronic Qualifiers: Hypothyroidism type: acquired Qualified Codes: E03.9 - Hypothyroidism, unspecified (5) Essential (primary) hypertension Status: Chronic Clinical Quality Measures DVT/VTE Risk/Contraindication: Risk Factor Score Per Nursin RFS Level Per Nursing on Admit: 4+=Very High Other: PATIENT IS ON LOVENOX AND SCD'S ROSARIO CABALLERO DO Oct 20, 2018 09:07
--- NOTE | 2018-10-20 09:08 | D/C HH Face to Face Order ---
D/C Face to Face Orders Instructions for Patient Via [facility] [employer], Patient Instructions/FollowUp: Danita You in [address] Schwartz as scheduled Physician to follow Patient: CORNELIO Gill Discharge Diet for Home: ADA Diet Patient Problems: Cervical spine surgery Diabetes Patient Data-Allergies,Ht & Wt Patient Allergies: Coded Allergies: No Known Drug Allergies (Unverified , 10/07/18) Height (Feet): 5 Height (Inches): 7.00 Weight (Pounds): 283 Weight (Ounces): 0.0 Home Health Need/Face to Face Date of Face to Face: Oct 20, 2018 Clinical Findings: Generalized weakness and fatigue, Unsteady gait I have seen Pt [id number]: Yes Discharged To: Home Diagnosis/Conditions: Cervical spine surgery Diabetes Patient is Homebound due to: Afshan fall risk due to instabilty, Muscle weakness , Pain w/ambulation Homebound Status Due to the above stated illness, injury or surgical procedure (medical condition or diagnosis) and associated clinical findings, the patient is homebound because of his/her inability to leave home except with aid of a supportive device and/or person AND leaving the home requires a considerable and taxing effort or is medically contraindicated. Pt req the following assistanc: Walker Home Health Nursing Orders Home Health Services Order: [facility]-Evaluate & Treat, Physical Therapy-Evaluate & Treat [facility] Chest Certify Stmt I certify that this patient is under my care and that I, a nurse practitioner or a physician; a training and development assistant working with me, had a face to face encounter that - meets the physician face to face encounter requirements with this patient as dated. ROSARIO CABALLERO DO Oct 20, 2018 09:08
[2018-10-20] MEDS ORDERED: OXYC1TAB87 PO (10:35)
--- NOTE | 2018-10-20 11:03 | Therapy Team Discharge Summary ---
Therapy Discharge Summary Discharge Recommendations Date of Discharge October 20, 2018 Therapy D/C Recommendations: Home w/ Family Support, Occupational Therapy Home Care Occupational Therapy Pt seen for skilled OT to increase her independence with basic self car to allow her to safely return home after cervical surgery. On admission she was independent with eating, setup for grooming and upper body dressing, min/CGA toileting and toilet transfers, mod assist lower body dressing. She was also confused and had difficulty remembering information. By discharge she was independent with eating and modified independent for all other basic ADLs, with some mild safety concerns. See tx plan for goals met. Equipment used included shower bench, grab bars, hand held shower, BSC over toilet, FWW. Recommend home health OT for safety. DC OT Decreased Activ Tolerance, Impaired I ADL's, Impaired Self-Care Skills PT Fdc Goals Passenger Train Braker Goals PT Fdc Goals Time Frame: Oct 29, 2018 Transfers (B,C,W/C) (FIM): 6 (met) Roll Left to Right (QC): 6 (met) Sit to Lying (QC): 6 (met) Lying-Sitting on Side/Bed(QC): 6 (met) Sit to Stand (QC): 6 (met) Chair/Tkh-ht-Sonmn Xfer(QC): 6 (met) Car Transfer (QC): 6 (met) Does the Patient Walk: Yes Gait (FIM): 6 (met) Gait distance (FIM): 3=150 ft Distance: 175' Walk 10 feet (QC): 6 (met) Walk 10ft-Uneven Surface(QC): 6 (met) Walk 50ft with 2 Turns (QC): 6 (met) Walk 150 ft (QC): 6 (met) Gait Level of Assist: 6 (met) Gait Assistive Device: FWW Does the Pt use WC or Scooter?: No Stairs (FIM): 1 (met) # of Steps: 1 1 Step (curb) (QC): 5 (met) 4 Steps (QC): 9 12 Steps (QC): 9 Stairs Level Of Assist: 5 (met) Picking up an Object (QC): 5 OT Passenger Train Braker Goals Fdc Goals Time Frame: Oct 29, 2018 Eating (FIM): 7 (met) Eating (QC): 6 (met) Oral Hygiene (QC): 6 (met) Grooming(FIM): 6 (met) Bathing(FIM): 6 (met) Shower/Bathe Self (QC): 6 (met) Upper Body Dressing(FIM): 6 (met) Upper Body Dressing (QC): 6 (met) Lower Body Dressing(FIM): 6 (met) Lower Body Dressing (QC): 6 (met) On/Off Footwear (QC): 6 (met) Toileting(FIM): 6 (met) Toileting Hygiene (QC): 6 (met) Toilet/Commode Transfer(FIM): 6 (met) Toilet/Commode Transfer (QC): 6 (met) Shower Transfer(FIM): 6 (met) Additional Goals: 1-Demonstrate ADL Tasks, 2-Verbalize Understanding, 3- ImproveStrength/Brendan 1=Demonstrate adherence to instructed precautions during ADL tasks. 2=Patient will verbalize/demonstrate understanding of assistive devices/ modifications for ADL. 3=Patient will improve strength/tolerance for activity to enable patient to perform ADL's. Speech Passenger Train Braker Goals Fdc Goals Patient will increase functional memory, problem solving, sequencing and auditory processing for safety awareness and independence. MELANIA HUANG OT Oct 20, 2018 11:03
[2018-10-20] MEDS: oxyCODONE/APAP 5/325MG (PERCOCET 5) TABLET PO PRN (11:26)
[2018-10-20 12:22] VITALS: BP 105/67
--- NOTE | 2018-10-20 15:41 | Therapy Team Discharge Summary ---
Therapy Discharge Summary Discharge Recommendations Date of Discharge Oct 20, 2018 at 14:40 Therapy D/C Recommendations: Home w/ Family Support, Occupational Therapy Home Care Occupational Therapy Decreased Activ Tolerance, Impaired I ADL's, Impaired Self-Care Skills Speech-Language Pathology Patient was admitted to rehab post neck surgery. Patient was initially very confused and had significant memory deficits. During the course of therapy she made excellent gains and was able to demonstrate safer functionality with daily tasks. Patient was discharged home today with support of friends and family. Discharge from this date. PT Senior Care Goals Signal Tower Director Goals PT Signal Tower Director Goals Time Frame: Oct 29, 2018 Transfers (B,C,W/C) (FIM): 6 (met) Roll Left to Right (QC): 6 (met) Sit to Lying (QC): 6 (met) Lying-Sitting on Side/Bed(QC): 6 (met) Sit to Stand (QC): 6 (met) Chair/[id number]-Wrkmf Xfer(QC): 6 (met) Car Transfer (QC): 6 (met) Does the Patient Walk: Yes Gait (FIM): 6 (met) Gait distance (FIM): 3=150 ft Distance: 175' Walk 10 feet (QC): 6 (met) Walk 10ft-Uneven Surface(QC): 6 (met) Walk 50ft with 2 Turns (QC): 6 (met) Walk 150 ft (QC): 6 (met) Gait Level of Assist: 6 (met) Gait Assistive Device: FWW Does the Pt use WC or Scooter?: No Stairs (FIM): 1 (met) # of Steps: 1 1 Step (curb) (QC): 5 (met) 4 Steps (QC): 9 12 Steps (QC): 9 Stairs Level Of Assist: 5 (met) Picking up an Object (QC): 5 OT Signal Tower Director Goals Signal Tower Director Goals Time Frame: Oct 29, 2018 Eating (FIM): 7 (met) Eating (QC): 6 (met) Oral Hygiene (QC): 6 (met) Grooming(FIM): 6 (met) Bathing(FIM): 6 (met) Shower/Bathe Self (QC): 6 (met) Upper Body Dressing(FIM): 6 (met) Upper Body Dressing (QC): 6 (met) Lower Body Dressing(FIM): 6 (met) Lower Body Dressing (QC): 6 (met) On/Off Footwear (QC): 6 (met) Toileting(FIM): 6 (met) Toileting Hygiene (QC): 6 (met) Toilet/Commode Transfer(FIM): 6 (met) Toilet/Commode Transfer (QC): 6 (met) Shower Transfer(FIM): 6 (met) Additional Goals: 1-Demonstrate ADL Tasks, 2-Verbalize Understanding, 3- ImproveStrength/Brendan 1=Demonstrate adherence to instructed precautions during ADL tasks. 2=Patient will verbalize/demonstrate understanding of assistive devices/ modifications for ADL. 3=Patient will improve strength/tolerance for activity to enable patient to perform ADL's. Speech Senior Care Goals Senior Care Goals Patient will increase functional memory, problem solving, sequencing and auditory processing for safety awareness and independence. MICHELLE GARZA Oct 20, 2018 15:41
== END 2018-10-20 14:40 | disposition home health service (06) | DRG 561 ==
LOC: UNDOADMIN 10:25
PROVIDERS: ADMIT Physical Medicine & Rehabilitation; ATTEND Physical Medicine & Rehabilitation
DX: Z47.89 Encounter for other orthopedic aftercare (principal); Z98.1 Arthrodesis status; E11.65 Type 2 diabetes mellitus with hyperglycemia; Z79.4 Long term (current) use of insulin; I10 Essential (primary) hypertension; I25.10 Atherosclerotic heart disease of native coronary artery without angina pectoris; E03.9 Hypothyroidism, unspecified; E78.5 Hyperlipidemia, unspecified; Z95.1 Presence of aortocoronary bypass graft
CPT/HCPCS: 81000; 82962